=== PATIENT | female | born 1935 | race Caucasian/White ===

== ENCOUNTER 2017-12-02 13:53 | Inpatient (IN) | payer MEDICARE, OTHER, SELFPAY ==
[2017-12-02] VITALS (9 sets, daily range): BP systolic 143–200; BP diastolic 59–104; PULSE 89–104; RESP 16–24; TEMP 36.6–37.1; O2SAT 93–97; BMI 39.8; BMI 39.9; BMI 41.4
--- NOTE | 2017-12-02 14:22 | RAD_ITS ---
STUDY: X-RAY CHEST REASON FOR EXAM: Female, 82 years old. Worsening cough TECHNIQUE: Single AP portable view of the chest. COMPARISON: 09/08/2016 FINDINGS: EKG leads overlie the chest There are interstitial fibrotic changes of the lungs. There is no demonstrated pleural abnormality. Normal size heart. Normal mediastinum and awilda. Normal visualized pulmonary arteries. There is atherosclerotic calcification of the aortic arch with tortuosity. There are diffuse degenerative changes of the visualized thoracic spine. There is degenerative osteoarthritis of the bilateral shoulders. There is no demonstrated abnormality of the visualized soft tissue structures of the upper abdomen. RAD/Chest 1 View (Portable) IMPRESSION: Degenerative changes, as described above. No demonstrated acute cardiopulmonary process. No significant interval change Electronically Signed: Delmer Barrett MD at 15:33 EDT , Service support ,
--- NOTE | 2017-12-02 14:22 | EKG12_ITS ---
Test Reason : Blood Pressure : / mmHG Vent. Rate : 094 BPM Atrial Rate : 094 BPM P-R Int : 160 ms QRS Dur : 080 ms QT Int : 376 ms P-R-T Axes : 064 032 035 degrees QTc Int : 470 ms Sinus rhythm with frequent Premature ventricular complexes Otherwise normal ECG Confirmed by JAYESH SHELDON, ZACH ([id number]), editor at large SUNSHINE STODDARD ([id number]) on 12/03/2017 2:33:54 PM Referred By: JODI Confirmed By:ZACH MCCONNELL MD
[2017-12-02 14:45] LABS: Absolute Lymphocyte Count 2.03 X10^3/ul (0.83-4.51); Absolute Neutrophil Count 7.4 X10^3/uL (2.0-7.7); Basophil# 0.02 X10^3/uL; Basophil% 0.2 % (0-1); Eosinophil# 0.05 X10^3/uL; Eosinophils% 0.5 % (0-5); Hematocrit 42.4 % (37-47); Lymphocyte # 2.03 X10^3/ul (4.0); Lymphocyte % 19.5 % (19-41); Mean Corpuscular Hgb 29.3 pg (27.0-32.0); Mean Corpuscular Volume 88.7 fL (81-99); Monocyte# 0.87 X10^3/uL; Monocyte% 8.4 % (0-10); Neutrophil # 7.43 X10^3/uL (2.7-7.7); Neutrophil % 71.3 % (47-70); Platelet Count 255 K/mm3 (150-450); RBC Distribution Width CV 14.9 % (11.6-14.6); RBC Distribution Width SD 48.7 fl (35.1-43.9); Red Blood Count 4.78 M/mm3 (4.2-5.4); White Blood Count 10.4 K/mm3 (4.4-11.0)
[2017-12-02 14:47] LABS: POSITIVE COUNT NO; POSITIVE DIFFERENTIAL NO; POSITIVE MORPHOLOGY NO
[2017-12-02] MEDS: Ipratropium/Albuterol Sulfate 3 ML AMPUL.NEB INHALATION ×2 (14:55→20:20)
[2017-12-02] MEDS: Albuterol 2.5 MG/3 ML VIAL.NEB. INHALATION (14:55)
[2017-12-02 15:01] LABS: Anion Gap 10 (5-15); BUN 34 mg/dL (7-18); BUN/Creat Ratio 21.2 RATIO (10-20); Chloride 112 mmol/L (98-107); EST Glomerular Filtration Rate 33 mL/min (>60); Est Glom Filt Rate - Afr Amer 40 mL/min (>60); Estimated Creatinine Clearance 26.25 ml/min; Glucose 100 mg/dL (74-106); Potassium 3.7 mmol/L (3.5-5.1); Sodium Level 145 mmol/L (136-145)
[2017-12-02] MEDS: MethylPREDNISolone 125 MG/2 ML Vial IV (15:13)
--- NOTE | 2017-12-02 16:16 | ED.VISSUMM ---
- ER Visit Summary Date of Service: 12/02/17 Chief Complaint: Breathing problems History of Present Illness: The patient is a 82 F with shortness of breath increasing over the last several weeks. Symptoms are worse with ambulation. Her oxygen at home was in the 60s and 70s. She had an outpatient x-ray and was started on a water pill. A repeat x-ray was done and her PCP did not like it. She was referred to pulmonology on December 21, but her symptoms are worsening and she cannot make it at home. She has a history of COPD, TIA, hypertension, CKD, and gout. She has a remote history of nephrectomy for cancer. Former smoker. Physical Examination: Afebrile. Blood pressure 200/104. Alert and oriented. Breathing comfortably. Speaking comfortably. Heart regular. Lungs clear. Abdomen soft. Skin normal in color. Calf soft and supple. Test Results: EKG showed sinus rhythm at a rate of 94 with PVCs. Chest x-ray showed no acute abnormalities. CBC normal. Chem panel unremarkable. BNP 252 and troponin normal. Emergency Department Course and Treatment: Patient was placed on a monitor. She received breathing treatments and Solu-Medrol. She continued to have some shortness of breath. Her sats were normal on a nasal cannula. Her repeat blood pressure was 170/75. She was treated with doxycycline. Given her continued symptoms despite outpatient therapy and hypoxia at home, I called the hospitalist to admit. Treatment Plan: As above Disposition: Admission Impression: 1. COPD exacerbation 2. Hypoxia This note was generated with [employer] dictation software. It may contain incorrect words, spelling, and punctuation that were not noted in review of the chart prior to signing ED Disposition - Plan for ED Patient: Chief Complaint: Shortness of Breath Referrals: Dustin Mendieta [Primary Care Provider] -
--- NOTE | 2017-12-02 16:19 | ED.DCSUM_ITS ---
- ER Visit Summary Date of Service: 12/02/17 Chief Complaint: Breathing problems History of Present Illness: The patient is a 82 F with shortness of breath increasing over the last several weeks. Symptoms are worse with ambulation. Her oxygen at home was in the 60s and 70s. She had an outpatient x-ray and was started on a water pill. A repeat x-ray was done and her PCP did not like it . She was referred to pulmonology on December 21, but her symptoms are worsening and she cannot make it at home. She has a history of COPD, TIA, hypertension, CKD, and gout. She has a remote history of nephrectomy for cancer. Former smoker. Physical Examination: Afebrile. Blood pressure 200/104. Alert and oriented. Breathing comfortably. Speaking comfortably. Heart regular. Lungs clear. Abdomen soft. Skin normal in color. Calf soft and supple. Test Results: EKG showed sinus rhythm at a rate of 94 with PVCs. Chest x-ray showed no acute abnormalities. CBC normal. Chem panel unremarkable. BNP 252 and troponin normal. Emergency Department Course and Treatment: Patient was placed on a monitor. She received breathing treatments and Solu-Medrol. She continued to have some shortness of breath. Her sats were normal on a nasal cannula. Her repeat blood pressure was 170/75. She was treated with doxycycline. Given her continued symptoms despite outpatient therapy and hypoxia at home, I called the hospitalist to admit. Treatment Plan: As above Disposition: Admission Impression: 1. COPD exacerbation 2. Hypoxia This note was generated with [employer] dictation software. It may contain incorrect words, spelling, and punctuation that were not noted in review of the chart prior to signing ED Disposition - Plan for ED Patient: Chief Complaint: Shortness of Breath Referrals: Dustin Mendieta [Primary Care Provider] -
--- NOTE | 2017-12-02 16:30 | PCM.HP.STD ---
Problem List (1) Obesity (BMI 30-39.9) Status: Chronic (2) History of tobacco use Status: Chronic (3) Gout Status: Chronic Qualifiers: Gout site: unspecified site Gout etiology: unspecified cause Chronicity: unspecified Qualified Code(s): M10.9 - Gout, unspecified (4) Hypoxia Status: Chronic (5) COPD exacerbation Status: Chronic (6) Hypertension Status: Chronic Qualifiers: Hypertension type: essential hypertension Qualified Code(s): I10 - Essential (primary) hypertension (7) History of TIA (transient ischemic attack) Status: Chronic (8) History of kidney cancer Status: Chronic (9) CKD (chronic kidney disease) Status: Chronic Qualifiers: Chronic kidney disease stage: stage 3 (moderate) Qualified Code(s): N18.3 - Chronic kidney disease, stage 3 (moderate) History of Present Illness Date of Admission: 12/02/17 Chief Complaint: Dyspnea, cough, wheezing, hypoxia The patient is a 82 y/o w/ PMHx: Obesity, History of Tobacco use, Gout, Chronic COPD, Hypertension, Hx TIA, History of Renal CA, CKD stage III (baseline Cr 1.4) who presents to the [facility] ED on 12/02/17 with history of 6 weeks of ongoing dyspnea worse with exertion and minimally productive cough without fever or chills with self-reported hypoxia at home (Son checked her oxygenation and noted 70s) with PCP evaluation and ? congestion on film prompting lasix usage transiently without improvement, thus referred to Pulmonary 12/21/17; however, she noted ongoing dyspnea, worsened with any effort over the last ~ 3-4 weeks. In the ED work-up included AF, HR 90-100, BP 152/75, RR 22, 96% on 2L, although noted notable hypoxia at home, in the ED upon presentation 89% at rest, 86% on RA with ambulation and 90% on 2L with exertion with oxygen supplementation, CBC w/ WBC 10.4, Hgb 14, Plts 255 without marked shift, BMP w/ Chl 112, BUN/Cr 34/1.60, BNP 252, trop 0.03, EKG SR without acute evidence of ischemia, CXR with chronic changes. In the ED patient administered albuterol, duoneb, doxycycline, solumedrol. Past Medical History Past Medical History (Chronic Problems): Chronic Problems Obesity (BMI 30-39.9) (Chronic) History of tobacco use (Chronic) Gout (Chronic) Hypoxia (Chronic) COPD exacerbation (Chronic) Hypertension (Chronic) History of TIA (transient ischemic attack) (Chronic) History of kidney cancer (Chronic) CKD (chronic kidney disease) (Chronic) Allergies clindamycin [From Cleocin] Allergy (Verified 12/02/17 13:59) Unknown oxycodone HCl [From OxyContin] Allergy (Verified 12/02/17 13:59) Anaphylaxis Sulfa (Sulfonamide Antibiotics) Allergy (Verified 12/02/17 13:59) Anaphylaxis vancomycin Allergy (Verified 12/02/17 13:59) Hives guaifenesin [From Entex LA] Adverse Reaction (Verified 12/02/17 13:59) Unknown phenylephrine [From Entex LA] Adverse Reaction (Verified 12/02/17 13:59) Unknown phenylpropanolamine [From Entex LA] Adverse Reaction (Verified 12/02/17 13:59) Unknown BETA BLOCKERS Adverse Reaction (Uncoded 12/02/17 13:59) Unknown Home Medications: Ambulatory Orders Medication Instructions Recorded Aspirin 325 mg PO DAILY@0800 04/04/15 Estrogens, Conjugated [Premarin] 0.3 mg PO DAILY 04/04/15 Hydrochlorothiazide [Hctz] 25 mg PO DAILY 04/04/15 MedroxyPROGESTERone [Provera] 2.5 mg PO UD 05/18/15 Felodipine [Plendil] 10 mg PO DAILY #0 tab.sr.24h 05/28/15 Albuterol Inhaler [Ventolin Hfa] 2 puff INHALATION Q4H PRN PRN #1 09/11/16 inhaler Budesonide/Formoterol 160/4.5 2 puff INHALATION BID #1 inhaler 09/11/16 [Symbicort 160/4.5 Mcg Inhaler (SP)] Oseltamivir Phosphate [Tamiflu] 30 mg PO DAILY #3 capsule 09/11/16 predniSONE tablet 10 mg PO DAILY #21 tablet 09/11/16 Docusate Sodium [Colace] 100 mg PO DAILY #20 capsule 12/23/16 Hydrocodone Bitart/Apap 5-325 1 - 2 tablet PO Q4H PRN PRN #20 12/23/16 [[place] 5/325] tablet Surgical History: - - Tonsillectomy, appendectomy, cholecystectomy, bilateral shoulder rotator cuff repair, right elbow fracture with surgery with pin in place, bilateral total knee replacement. 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 Smoking Status: Former smoker Tobacco Use: Non-smoker - Quit 1994, notes ~ < 1/2 ppd since youth. Alcohol: None Drugs: None - *Family History Maternal History Items: Heart Disease, Hypertension Paternal History Items: Cancer - Pancreatic CA, age 3840 years old., Diabetes, Heart Disease, Hypertension Review of Systems Constitutional: Reports: Malaise, Weakness, Fatigue. Denies: Chills, Fever, Weight Change HEENT: Denies: Head Aches, Sinus Congestion, Sinus Drainage Cardiovascular: Denies: Chest Pain, Edema, Heaviness, Light Headedness, Palpitations Respiratory: Reports: Cough, Shortness of Breath, Shortness of breath at rest, Shortness of breath upon exertion, Sputum production, Wheezing Gastrointestinal: Denies: Abdominal Pain, Nausea, Vomiting Genitourinary: Denies: Dysuria Musculoskeletal: Reports: Back Pain. Denies: Joint Pain, Joint Tenderness Skin: Denies: Rash, Wounds Neurological: Denies: Numbness, Tingling, Focal weakness Psychiatric: Denies: Anxiety, Depression, Homicidal Ideations, Suicidal Ideations Hematologic/ Lymphatic: Denies: Easy Bruising, Easy Bleeding VTE Information - Inpt Only VTE Present on Admission: No VTE Mechan Device Prophylaxis: SCD's VTE Pharm Prophylaxis ordered?: Yes Subjective: Seated upright in the ED bed, comfortable appearing, NAD. Objective: Physical Examination: General: awake, alert, oriented x 3 and cooperative, seated upright in the ED bed in no apparent distress. Skin: normal color, turgor, no icterus, cyanosis. HEENT: AT/NC, EOMI, PERRLA, MMM, no carotid bruits or JVD noted. Lungs: Severely diminished BS throughout, > bases, mild effort, no rales, ronchi or wheezing. Heart: Mildly tachycardic, regular rhythm; no gallop, rub audible. Abdomen: soft, obese, NTTP, ND, normal BS, no HSM; however, habitus makes examination difficult. Extremities: no cyanosis, clubbing, or edema. Neurological: patient awake, alert, oriented x 3; cognitive function intact; pupils equally reactive to light and accomodation; cranial nerves II-XII grossly normal, moving all 4 extremities, no focal deficits, strength moderately to severely globally decreased secondary to acute presentation and habitus. Psychiatric: affect appears normal, no acute evidence of depressive or anxiety feelings. - Physical Exam Vital Signs Temp Pulse Resp BP Pulse Ox 98.2 F 101 H 22 H 152/75 H 96 12/02/17 13:54 12/02/17 16:24 12/02/17 16:24 12/02/17 16:24 12/02/17 16:24 Oxygen Flow Rate (L/min) 2 Oxygen Delivery Method Nasal Cannula Weight: 246 lb 14.684 oz Body Mass Index (BMI) 39.8 Laboratory Tests Past 24 Hrs 12/02/17 12/02/17 12/02/17 14:36 14:36 14:36 WBC 10.4 RBC 4.78 Hgb 14.0 Hct 42.4 MCV 88.7 MCH 29.3 MCHC 33.0 RDW 14.9 H RDW Differential 48.7 H Plt Count 255 MPV 10.0 Immature Gran % (Auto) 0.100 Neut % (Auto) 71.3 H Lymph % (Auto) 19.5 [place] % (Auto) 8.4 Eos % (Auto) 0.5 Baso % (Auto) 0.2 Absolute Neuts (auto) 7.4 Absolute Lymphs (auto) 2.03 Total Counted Not Reportable Sodium 145 Potassium 3.7 Chloride 112 H Carbon Dioxide 23.0 Anion Gap 10 BUN 34 H Creatinine 1.60 H Estim Creat Clear Calc 26.25 Est GFR (MDRD) Af Amer 40 L Est GFR (MDRD) Non-Af 33 L BUN/Creatinine Ratio 21.2 H Glucose 100 Calcium 9.0 Troponin I 0.03 B-Natriuretic Peptide 252.0 H Assessment/Plan The patient is a 82 y/o w/ PMHx: Obesity, History of Tobacco use, Gout, Chronic COPD, Hypertension, Hx TIA, History of Renal CA, CKD stage III who presents to the [facility] ED on 12/02/17 with history of 6 weeks of ongoing dyspnea worse with exertion and minimally productive cough without fever or chills with self-reported hypoxia at home with PCP evaluation and ? congestion on film prompting lasix usage transiently without improvement, thus referred to Pulmonary 12/21/17; however, she noted ongoing dyspnea, worsened with any effort over the last ~ 3-4 weeks. (1) Hypoxia secondary to Suspected Primarily Acute on chronic COPD exacerbation: CXR w/ chronic changes, CBC on admission w/ WBC 10.4 without shift, afebrile. Will admit to [place], maintain on oxygen with wean as tolerated to room air, will need oxygenation testing once appropriate for discharge, continue ATC duonebs, PRN albuterol, IV methylprednisolone, HOB, IS parameters, defer abx given presentation, obtain viral respiratory panel, obtain sputum cx, obtain Pulmonary evaluation as had upcoming evaluation for further assessment and recommendations. ECHO also pending. Mag pending. (2) Hypertension: Continue home regimen including felodipine, hydrochlorothiazide, PRN hydralazine. (3) Hx Renal CA, Chronic Kidney Disease Stage III: Admission BUN/Cr 34/1.60, baseline renal function 1.4, repeat BMP in AM. Follows w/ Consumer Safety Officer at [place]. (4) Obesity: Weight loss and lifestyle changes encouraged, nutrition consulted for education. (5) Hx TIA/CVD: Maintain on asa, BP regimen with goal <140/90, not on statin. (6) GERD: Famotidine. (7) DVT Prophylaxis: SCDs, heparin. Code Visit Inpatient E&M: 26528 Init Hosp L3
--- NOTE | 2017-12-02 16:41 | HP.PCM_ITS ---
Problem List (1) Obesity (BMI 30-39.9) Status: Chronic (2) History of tobacco use Status: Chronic (3) Gout Status: Chronic Qualifiers: Gout site: unspecified site Gout etiology: unspecified cause Chronicity: unspecified Qualified Code(s): M10.9 - Gout, unspecified (4) Hypoxia Status: Chronic (5) COPD exacerbation Status: Chronic (6) Hypertension Status: Chronic Qualifiers: Hypertension type: essential hypertension Qualified Code(s): I10 - Essential (primary) hypertension (7) History of TIA (transient ischemic attack) Status: Chronic (8) History of kidney cancer Status: Chronic (9) CKD (chronic kidney disease) Status: Chronic Qualifiers: Chronic kidney disease stage: stage 3 (moderate) Qualified Code(s): N18.3 - Chronic kidney disease, stage 3 (moderate) History of Present Illness Date of Admission: 12/02/17 Chief Complaint: Dyspnea, cough, wheezing, hypoxia The patient is a 82 y/o w/ PMHx: Obesity, History of Tobacco use, Gout, Chronic COPD, Hypertension, Hx TIA, History of Renal CA, CKD stage III (baseline Cr 1.4 ) who presents to the [facility] ED on 12/02/17 with history of 6 weeks of ongoing dyspnea worse with exertion and minimally productive cough without fever or chills with self-reported hypoxia at home (Son checked her oxygenation and noted 70s) with PCP evaluation and ? congestion on film prompting lasix usage transiently without improvement, thus referred to Pulmonary 12/21/17; however, she noted ongoing dyspnea, worsened with any effort over the last ~ 3-4 weeks. In the ED work-up included AF, HR 90-100, BP 152/75, RR 22, 96% on 2L, although noted notable hypoxia at home, in the ED upon presentation 89% at rest, 86% on RA with ambulation and 90% on 2L with exertion with oxygen supplementation, CBC w/ WBC 10.4, Hgb 14, Plts 255 without marked shift, BMP w/ Chl 112, BUN/Cr 34/ 1.60, BNP 252, trop 0.03, EKG SR without acute evidence of ischemia, CXR with chronic changes. In the ED patient administered albuterol, duoneb, doxycycline, solumedrol. Past Medical History Past Medical History (Chronic Problems): Chronic Problems Obesity (BMI 30-39.9) (Chronic) History of tobacco use (Chronic) Gout (Chronic) Hypoxia (Chronic) COPD exacerbation (Chronic) Hypertension (Chronic) History of TIA (transient ischemic attack) (Chronic) History of kidney cancer (Chronic) CKD (chronic kidney disease) (Chronic) Allergies clindamycin [From Cleocin] Allergy (Verified 12/02/17 13:59) Unknown oxycodone HCl [From OxyContin] Allergy (Verified 12/02/17 13:59) Anaphylaxis Sulfa (Sulfonamide Antibiotics) Allergy (Verified 12/02/17 13:59) Anaphylaxis vancomycin Allergy (Verified 12/02/17 13:59) Hives guaifenesin [From Entex LA] Adverse Reaction (Verified 12/02/17 13:59) Unknown phenylephrine [From Entex LA] Adverse Reaction (Verified 12/02/17 13:59) Unknown phenylpropanolamine [From Entex LA] Adverse Reaction (Verified 12/02/17 13:59) Unknown BETA BLOCKERS Adverse Reaction (Uncoded 12/02/17 13:59) Unknown Home Medications: Ambulatory Orders Medication Instructions Recorded Aspirin 325 mg PO DAILY@0800 04/04/15 Estrogens, Conjugated [Premarin] 0.3 mg PO DAILY 04/04/15 Hydrochlorothiazide [Hctz] 25 mg PO DAILY 04/04/15 MedroxyPROGESTERone [Provera] 2.5 mg PO UD 05/18/15 Felodipine [Plendil] 10 mg PO DAILY #0 tab.sr.24h 05/28/15 Albuterol Inhaler [Ventolin Hfa] 2 puff INHALATION Q4H PRN PRN #1 09/11/16 inhaler Budesonide/Formoterol 160/4.5 2 puff INHALATION BID #1 inhaler 09/11/16 [Symbicort 160/4.5 Mcg Inhaler (SP)] Oseltamivir Phosphate [Tamiflu] 30 mg PO DAILY #3 capsule 09/11/16 predniSONE tablet 10 mg PO DAILY #21 tablet 09/11/16 Docusate Sodium [Colace] 100 mg PO DAILY #20 capsule 12/23/16 Hydrocodone Bitart/Apap 5-325 1 - 2 tablet PO Q4H PRN PRN #20 12/23/16 [[place] 5/325] tablet Surgical History: - - Tonsillectomy, appendectomy, cholecystectomy, bilateral shoulder rotator cuff repair, right elbow fracture with surgery with pin in place, bilateral total knee replacement. 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 Smoking Status: Former smoker Tobacco Use: Non-smoker - Quit 1994, notes ~ < 1/2 ppd since youth. Alcohol: None Drugs: None - *Family History Maternal History Items: Heart Disease, Hypertension Paternal History Items: Cancer - Pancreatic CA, age 3838 years old., Diabetes, Heart Disease, Hypertension Review of Systems Constitutional: Reports: Malaise, Weakness, Fatigue. Denies: Chills, Fever, Weight Change HEENT: Denies: Head Aches, Sinus Congestion, Sinus Drainage Cardiovascular: Denies: Chest Pain, Edema, Heaviness, Light Headedness, Palpitations Respiratory: Reports: Cough, Shortness of Breath, Shortness of breath at rest, Shortness of breath upon exertion, Sputum production, Wheezing Gastrointestinal: Denies: Abdominal Pain, Nausea, Vomiting Genitourinary: Denies: Dysuria Musculoskeletal: Reports: Back Pain. Denies: Joint Pain, Joint Tenderness Skin: Denies: Rash, Wounds Neurological: Denies: Numbness, Tingling, Focal weakness Psychiatric: Denies: Anxiety, Depression, Homicidal Ideations, Suicidal Ideations Hematologic/ Lymphatic: Denies: Easy Bruising, Easy Bleeding VTE Information - Inpt Only VTE Present on Admission: No VTE Mechan Device Prophylaxis: SCD's VTE Pharm Prophylaxis ordered?: Yes Subjective: Seated upright in the ED bed, comfortable appearing, NAD. Objective: Physical Examination: General: awake, alert, oriented x 3 and cooperative, seated upright in the ED bed in no apparent distress. Skin: normal color, turgor, no icterus, cyanosis. HEENT: AT/NC, EOMI, PERRLA, MMM, no carotid bruits or JVD noted. Lungs: Severely diminished BS throughout, > bases, mild effort, no rales, ronchi or wheezing. Heart: Mildly tachycardic, regular rhythm; no gallop, rub audible. Abdomen: soft, obese, NTTP, ND, normal BS, no HSM; however, habitus makes examination difficult. Extremities: no cyanosis, clubbing, or edema. Neurological: patient awake, alert, oriented x 3; cognitive function intact; pupils equally reactive to light and accomodation; cranial nerves II-XII grossly normal, moving all 4 extremities, no focal deficits, strength moderately to severely globally decreased secondary to acute presentation and habitus. Psychiatric: affect appears normal, no acute evidence of depressive or anxiety feelings. - Physical Exam Vital Signs Temp Pulse Resp BP Pulse Ox 98.2 F 101 H 22 H 152/75 H 96 12/02/17 13:54 12/02/17 16:24 12/02/17 16:24 12/02/17 16:24 12/02/17 16:24 Oxygen Flow Rate (L/min) 2 Oxygen Delivery Method Nasal Cannula Weight: 246 lb 14.684 oz Body Mass Index (BMI) 39.8 Laboratory Tests Past 24 Hrs 12/02/17 12/02/17 12/02/17 14:36 14:36 14:36 WBC 10.4 RBC 4.78 Hgb 14.0 Hct 42.4 MCV 88.7 MCH 29.3 MCHC 33.0 RDW 14.9 H RDW Differential 48.7 H Plt Count 255 MPV 10.0 Immature Gran % (Auto) 0.100 Neut % (Auto) 71.3 H Lymph % (Auto) 19.5 [place] % (Auto) 8.4 Eos % (Auto) 0.5 Baso % (Auto) 0.2 Absolute Neuts (auto) 7.4 Absolute Lymphs (auto) 2.03 Total Counted Not Reportable Sodium 145 Potassium 3.7 Chloride 112 H Carbon Dioxide 23.0 Anion Gap 10 BUN 34 H Creatinine 1.60 H Estim Creat Clear Calc 26.25 Est GFR (MDRD) Af Amer 40 L Est GFR (MDRD) Non-Af 33 L BUN/Creatinine Ratio 21.2 H Glucose 100 Calcium 9.0 Troponin I 0.03 B-Natriuretic Peptide 252.0 H Assessment/Plan The patient is a 82 y/o w/ PMHx: Obesity, History of Tobacco use, Gout, Chronic COPD, Hypertension, Hx TIA, History of Renal CA, CKD stage III who presents to the [facility] ED on 12/02/17 with history of 6 weeks of ongoing dyspnea worse with exertion and minimally productive cough without fever or chills with self- reported hypoxia at home with PCP evaluation and ? congestion on film prompting lasix usage transiently without improvement, thus referred to Pulmonary 12/21/17 ; however, she noted ongoing dyspnea, worsened with any effort over the last ~ 3 -4 weeks. (1) Hypoxia secondary to Suspected Primarily Acute on chronic COPD exacerbation : CXR w/ chronic changes, CBC on admission w/ WBC 10.4 without shift, afebrile. Will admit to [place], maintain on oxygen with wean as tolerated to room air, will need oxygenation testing once appropriate for discharge, continue ATC duonebs, PRN albuterol, IV methylprednisolone, HOB, IS parameters, defer abx given presentation, obtain viral respiratory panel, obtain sputum cx, obtain Pulmonary evaluation as had upcoming evaluation for further assessment and recommendations. ECHO also pending. Mag pending. (2) Hypertension: Continue home regimen including felodipine, hydrochlorothiazide, PRN hydralazine. (3) Hx Renal CA, Chronic Kidney Disease Stage III: Admission BUN/Cr 34/1.60, baseline renal function 1.4, repeat BMP in AM. Follows w/ Knowledge Architect at [place]. (4) Obesity: Weight loss and lifestyle changes encouraged, nutrition consulted for education. (5) Hx TIA/CVD: Maintain on asa, BP regimen with goal <140/90, not on statin. (6) GERD: Famotidine. (7) DVT Prophylaxis: SCDs, heparin. Code Visit Inpatient E&M: 76690 Init Hosp L3
--- NOTE | 2017-12-02 17:28 | ECHOD_ITS ---
Reason For Study: DYSPNEA Procedure This was a 2D Doppler, Color Flow transthoracic echocardiogram. The study was technically difficult. Exam performed portable in patient room. Left Ventricle Normal LV size. Mild concentric left ventricular hypertrophy. Left ventricular systolic function is normal. The estimated ejection fraction is 60 %. Transmitral diastolic flow velocities suggest mild (stage 1) diastolic dysfunction (reversed pattern). No regional wall motion abnormalities noted. Right Ventricle Normal RV size. Normal systolic function. Atria The left atrium is moderately enlarged. Normal right atrium. Mitral Valve There is mild mitral annular calcification. Mild (1+) eccentric mitral valve insufficiency. Tricuspid Valve Normal tricuspid valve. Moderate (2+) tricuspid valve insufficiency. Pulmonary artery systolic pressure is 59 mmHg. Moderate pulmonary hypertension. Aortic Valve Normal aortic valve. Pulmonic Valve Normal pulmonic valve. Great Vessels Normal aortic root. The pulmonary artery is normal size. Normal inferior vena cava. Pericardium/Pleural No pericardial effusion. Medication Definity deferred due to elevated PAP. MMode/2D Measurements & Calculations LVIDd: 3.9 cm IVSd: 1.2 cm Ao root diam: 3.1 cm LVIDs: 2.9 cm LVPWd: 1.6 cm LA dimension: 3.7 cm RVDd: 4.4 cm FS: 26.5 % LAV(MOD-bp): 66.8 ml LAV(MOD-bp) Indexed: 29.5 ml/m2 LA A4 area: 24.0 cm2 RA A4 area: 20.5 cm2 LAV(MOD-sp2): 50.0 ml LAV(MOD-sp4): 73.5 ml Doppler Measurements & Calculations MV E max nestor: 74.6 cm/sec Ao V2 max: 171.4 cm/sec LV V1 max: 110.3 cm/sec MV A max nestor: 109.4 cm/sec Ao max P.8 mmHg LV V1 max P.9 mmHg MV E/A: 0.68 TR max nestor: 366.9 cm/sec TR max P.3 mmHg Interpretation Summary Normal LV size. Mild concentric left ventricular hypertrophy. Left ventricular systolic function is normal. The estimated ejection fraction is 60 %. Pulmonary artery systolic pressure is 59 mmHg. Moderate pulmonary hypertension. Transmitral diastolic flow velocities suggest mild (stage 1) diastolic dysfunction (reversed pattern). Ordering Physician: Constance Kaur Referring Physician: POLI HARRY Performed By: Delilah De Santiago, RASHAAD, RVT
[2017-12-02 18:55] LABS: Magnesium 2.1 mg/dL (1.6-2.6); Thyroid Stim Hormone (TSH) 2.65 uIU/mL (0.358-3.74)
[2017-12-02] MEDS: 0.9% NaCl Peripheral Flush Adult/Peds IV (21:41)
[2017-12-02] MEDS: MELATONIN 3 MG TABLET PO (21:41)
[2017-12-02] MEDS: guaiFENesin 1,200 MG Tablet 1200 MG PO (21:41)
[2017-12-03] VITALS (9 sets, daily range): BP systolic 146–180; BP diastolic 74–98; PULSE 96–109; RESP 18–22; TEMP 36.7–37.2; O2SAT 94–98
[2017-12-03 06:19] LABS: Absolute Lymphocyte Count 0.54 X10^3/ul (0.83-4.51); Absolute Neutrophil Count 5.5 X10^3/uL (2.0-7.7); Hematocrit 39.5 % (37-47); Lymphocyte # 0.54 X10^3/ul (4.0); Lymphocyte % 8.9 % (19-41); Mean Corp Hgb Conc 32.9 g/gl (32-36); Mean Corpuscular Hgb 29.3 pg (27.0-32.0); Mean Platelet Vol. 10.4 fl (6.2-12.0); Monocyte# 0.07 X10^3/uL; Monocyte% 1.2 % (0-10); Neutrophil # 5.46 X10^3/uL (2.7-7.7); Neutrophil % 89.7 % (47-70); Platelet Count 253 K/mm3 (150-450); RBC Distribution Width CV 15.2 % (11.6-14.6); RBC Distribution Width SD 49.2 fl (35.1-43.9); Red Blood Count 4.44 M/mm3 (4.2-5.4); White Blood Count 6.1 K/mm3 (4.4-11.0)
[2017-12-03 06:20] LABS: Differential Indicated SCAN CRITERIA MET; POSITIVE COUNT NO; POSITIVE DIFFERENTIAL YES; POSITIVE MORPHOLOGY NO
[2017-12-03 06:26] LABS: Anion Gap 8 (5-15); BUN 36 mg/dL (7-18); BUN/Creat Ratio 24.5 RATIO (10-20); Calcium,Total 8.5 mg/dL (8.5-10.1); Chloride 111 mmol/L (98-107); Creatinine, Serum 1.47 mg/dL (0.55-1.02); EST Glomerular Filtration Rate 36 mL/min (>60); Est Glom Filt Rate - Afr Amer 44 mL/min (>60); Estimated Creatinine Clearance 28.57 ml/min; Glucose 152 mg/dL (74-106); Potassium 4.5 mmol/L (3.5-5.1); Sodium Level 141 mmol/L (136-145)
[2017-12-03] MEDS: 0.9% NaCl Peripheral Flush Adult/Peds IV ×3 (06:26→22:10)
[2017-12-03] MEDS: Ipratropium/Albuterol Sulfate 3 ML AMPUL.NEB INHALATION ×4 (06:45→20:04)
--- NOTE | 2017-12-03 08:11 | PCM.CONS.GEN ---
Problem List (1) Acute respiratory failure with hypoxia Status: Acute (2) History of tobacco use Status: Chronic Comment: quit 1994 (3) Hypertension Status: Chronic Qualifiers: Hypertension type: essential hypertension Qualified Code(s): I10 - Essential (primary) hypertension (4) CKD (chronic kidney disease) Status: Chronic Qualifiers: Chronic kidney disease stage: stage 3 (moderate) Qualified Code(s): N18.3 - Chronic kidney disease, stage 3 (moderate) (5) Gout Status: Chronic Qualifiers: Gout site: unspecified site Gout etiology: unspecified cause Chronicity: unspecified Qualified Code(s): M10.9 - Gout, unspecified (6) History of TIA (transient ischemic attack) Status: Chronic (7) History of kidney cancer Status: Chronic (8) Obesity, morbid, BMI 40.0-49.9 Status: Chronic Reason for Consult Date of Consultation: 12/03/17 Reason for Consultation: ?COPD exacerbation History of Present Illness: The patient is a 82 year old F past medical history as below who presented to the ED at the urging of her PCP secondary to ongoing and progressive dyspnea on exertion since October 05. The patient noted she had significant hypoxia at home in the 70s and her breathing has gotten somewhat worse in the last 3-4 days. She denies any fever or chills. She does have a cough of clear sputum, mainly in the mornings. Denies any hemoptysis, shortness of breath at rest, orthopnea, dizziness, or syncope. Patient denies any sore throat, rhinorrhea, or other upper respiratory symptoms. She has not had any recent weight loss. Initial vital signs 200/104, pulse 94, RR 22, 98.2?F, and 94% on room air. Patient reportedly desaturated to 89% on room air, and was later ambulated on room air and desaturated further to 86%. The patient was placed on 2 L of oxygen and was saturating at 94%. Blood work showed no leukocytosis, hemoglobin normal. Chemistry remarkable for chloride of 112, BUN of 34 and creatinine 1.60. Creatinine in September 2016 was between 1.08 and 1.48. BNP was 252. TSH normal 2.65. Troponin negative ?1. A respiratory viral panel was negative. Patient was started on aerosol treatments and chest physiotherapy. She was given a dose of IV doxycycline and started on IV steroids and scheduled bronchodilators. She was admitted to the medical surgical floor for further management. Pulmonary was consulted secondary to possible COPD exacerbation. Her blood pressure remains elevated. She has been weaned to 1 L of oxygen supplementation. Patient reports she initially presented to her primary care physician's office, Dr. Dustin Mendieta, on October 05. He performed a chest x-ray. The patient was placed on some Lasix and the chest x-ray was repeated. Her PCP reportedly did not like the looks of it so the patient was set up for an appointment in the pulmonary clinic on December 21, 2017. Patient states that she waited several days, however she felt like her breathing was worsening, so she presented to the ED. The patient states she saw Meseret Sommers and Dr. Wilson approximately 1 year ago as a hospital follow-up for hypoxic respiratory insufficiency secondary to influenza A and was placed on Symbicort and Ventolin. Her breathing did improve at that time, however she was sent home on 2 L of oxygen. She is only been to the pulmonary clinic once, on 09/23/16. She states she had subsequent pulmonary function tests and a sleep study, however these do not appear to be completed, possibly done at outside facility. She was also to have alpha-1 antitrypsin testing, however unclear if this was completed. Patient did have an overnight pulse oximetry on 09/07/15 while wearing 2 L of oxygen supplementation, showed desaturations. Patient also reports a past history of asthma. She is on hormone replacement at baseline secondary to issues with menopause. Patient does have a history of smoking, 1/2 PPD for 15 years and quit in 1994 (7.5 [id number]). She does have a pulse oximeter at home and monitors this regularly. She typically desaturates after taking a couple of steps, however in the last several weeks she has significantly desaturated into the 60s to 70s with minimal exertion. Echocardiogram 04/09/15 showed normal LV size, mild concentric LVH, estimated EF 60%, impaired relaxation of left ventricle, and a mild focal aortic valve calcification. She has been seen in the past by [facility] for high-grade AV block. Patient had a chest CT in August 2016 that showed diffuse COPD and basilar for peripheral fibrotic changes. There were scattered areas of lymph nodes throughout the mesentery with the largest measuring 1.3 cm in the right paratracheal region most likely consistent with a reactive lymphadenopathy. Past Medical History Past Medical History (Chronic Problems): Chronic Problems Obesity, morbid, BMI 40.0-49.9 (Chronic) History of tobacco use (Chronic) quit 1994 Gout (Chronic) Hypoxia (Chronic) COPD exacerbation (Chronic) Hypertension (Chronic) History of TIA (transient ischemic attack) (Chronic) History of kidney cancer (Chronic) CKD (chronic kidney disease) (Chronic) Allergies clindamycin [From Cleocin] Allergy (Verified 12/02/17 13:59) Unknown oxycodone HCl [From OxyContin] Allergy (Verified 12/02/17 13:59) Anaphylaxis Sulfa (Sulfonamide Antibiotics) Allergy (Verified 12/02/17 13:59) Anaphylaxis vancomycin Allergy (Verified 12/02/17 13:59) Hives guaifenesin [From Entex LA] Adverse Reaction (Verified 12/02/17 13:59) Unknown phenylephrine [From Entex LA] Adverse Reaction (Verified 12/02/17 13:59) Unknown phenylpropanolamine [From Entex LA] Adverse Reaction (Verified 12/02/17 13:59) Unknown BETA BLOCKERS Adverse Reaction (Uncoded 12/02/17 13:59) Unknown Home Medications: Ambulatory Orders Medication Instructions Recorded Aspirin 325 mg PO DAILY@0800 04/04/15 Estrogens, Conjugated [Premarin] 0.3 mg PO UD 04/04/15 Hydrochlorothiazide [Hctz] 25 mg PO DAILY 04/04/15 MedroxyPROGESTERone [Provera] 2.5 mg PO UD 05/18/15 Albuterol Inhaler [Ventolin Hfa] 2 puff INHALATION Q4H PRN PRN #1 09/11/16 inhaler Hydrocodone Bitart/Apap 5-325 1 - 2 tablet PO Q4H PRN PRN #20 12/23/16 [[place] 5/325] tablet Budesonide/Formoterol 160/4.5 2 puff INHALATION BID 12/02/17 [Symbicort 160/4.5 Mcg Inhaler (SP)] Felodipine [Plendil] 10 mg PO DAILY 12/02/17 Surgical History: - - Tonsillectomy, appendectomy, cholecystectomy, bilateral shoulder rotator cuff repair, right elbow fracture with surgery with pin in place, bilateral total knee replacement. Renal cell carcinoma Psychiatric History: No pertinent psych hx [employer] History: No pertinent [employer]ICE history Lives: With Family - She lives with her youngest son. Smoking Status: Former smoker - 7.5-pack-year history Tobacco Use: Cigarettes Alcohol: None Drugs: None - *Family History Paternal History Items: Cancer - Pancreatic CA, age 3838 years old., Diabetes, Heart Disease, Hypertension Maternal History Items: Heart Disease, Hypertension Review of Systems Constitutional: Denies: Anorexia, Chills, Fever, Night Sweats, Malaise, Weakness, Weight Change, Fatigue Eyes: Denies: Vision Change HEENT: Denies: Difficulty Swallowing, Head Aches, Nasal bleeding, Nasal Congestion, Post Nasal Drip, Sinus Congestion, Sinus Drainage, Sore Throat Cardiovascular: Denies: Chest Pain, Chest Tightness, Edema, Light Headedness, Orthopnea, Palpitations, Paroxysmal Noc. Dyspnea, Syncope Respiratory: Reports: Cough - Mostly nonproductive except in the morning, Shortness of breath upon exertion, Sputum production - Clear, mainly in a.m., Wheezing. Denies: Hemoptysis, Shortness of breath at rest Gastrointestinal: Denies: Abdominal Pain, Constipation, Diarrhea, Dyspepsia, Hematemesis, Hematochezia, Nausea, Melena, Vomiting Genitourinary: Reports: Nocturia. Denies: Dysuria, Frequency, Hematuria, Retention Gynecological: Denies: Breast symptoms Musculoskeletal: Reports: Joint stiffness. Denies: Back Pain, Muscle pain, Neck Pain Skin: Denies: Rash, Wounds Neurological: Denies: Balance problems, Change in Speech, Confusion, Difficulty swallowing, Focal weakness, Numbness, Tingling, Tremor, Seizures Psychiatric: Denies: Anxiety, Depression Endocrine: Denies: Change in Body Habitus, Polydipsia, Polyuria Hematologic/ Lymphatic: Denies: Adenopathy, Anemia, Easy Bruising, Easy Bleeding, Hx of blood clot Patient Problems: Active and Suspected Problems Acute respiratory failure with hypoxia (Acute) Subjective: Patient was seen and examined. She denies any current shortness of breath, sitting up in bed eating her breakfast. No current wheezing or cough. Objective: Clinical Impression(s) from Imaging Studies Chest X-Ray 12/02/17 14:22 IMPRESSION: Degenerative changes, as described above. No demonstrated acute cardiopulmonary process. No significant interval change Electronically Signed: Delmer Barrett MD at 15:33 EDT , Service support , - Physical Exam General: Alert, Oriented x3, Cooperative, No apparent distress, Well developed, Well nourished, - - No conversational dyspnea HEENT: Atraumatic, Normocephalic Oral: Moist Mucosa, No Gingival or Mucosal Lesions/ Ulcerations, - - Crowded posterior oropharynx Neck: Supple, No JVD, No Nodes, Trachea Midline, - - Large neck circumference Lungs: Clear to auscultation, No rhonchi, No wheeze, No rales, Diminished, - - Symmetrical expansion, no dullness to percussion. No accessory muscle use Cardiovascular: Regular rate, Regular Rhythm, Normal S1, Normal S2, No murmurs, No rub noted, No Gallop Abdomen: Bowel Sounds Present, Soft, Non Tender, Non-Distended, Obese Extremities: No clubbing, No cyanosis, No edema, Capillary Refill Less than 3 Seconds, Peripheral Pulses Normal Skin: No rashes, No breakdown Musculoskeletal: No Tenderness to Palpation of Joints or Extremities Lymphatic: No Cervical, Supraclavicular, or Inguinal Adenopathy Neurological: Cranial nerves II-XII grossly intact, Neuro grossly intact, Motor Exam 5/5 strength throughout Psych/Mental Status: Alert and oriented to time, place, person, mood and affect Vital Signs Temp Pulse Resp BP Pulse Ox 98.5 F 100 20 H 164/85 H 95 12/03/17 02:30 12/03/17 06:45 12/03/17 06:45 12/03/17 02:30 12/03/17 06:45 Oxygen Flow Rate (L/min) 1 Oxygen Delivery Method Nasal Cannula Weight: 256 lb 13.416 oz Body Mass Index (BMI) 41.4 Intake and Output for Last 24 Hours 12/01/17 12/02/17 12/03/17 23:59 23:59 23:59 Intake Total 1143 / 1143 510 / 510 Output Total 850 / 850 Balance 1143 / 1143 -340 / -340 Microbiology Past 72 Hours 12/02/17 20:10 Respiratory Panel (PCR) - Final Mucosa - Nasopharyngeal Laboratory Tests Past 24 Hrs 12/03/17 12/03/17 05:35 05:35 WBC 6.1 RBC 4.44 Hgb 13.0 Hct 39.5 MCV 89.0 MCH 29.3 MCHC 32.9 RDW 15.2 H RDW Differential 49.2 H Plt Count 253 MPV 10.4 Immature Gran % (Auto) 0.200 Neut % (Auto) 89.7 H Lymph % (Auto) 8.9 L [place] % (Auto) 1.2 Eos % (Auto) 0.0 Baso % (Auto) 0.0 Absolute Neuts (auto) 5.5 Absolute Lymphs (auto) 0.54 L Total Counted Not Reportable Sodium 141 Potassium 4.5 Chloride 111 H Carbon Dioxide 22.0 Anion Gap 8 BUN 36 H Creatinine 1.47 H Estim Creat Clear Calc 28.57 Est GFR (MDRD) Af Amer 44 L Est GFR (MDRD) Non-Af 36 L BUN/Creatinine Ratio 24.5 H Glucose 152 H Calcium 8.5 Assessment/Plan Active and Suspected Problems Acute respiratory failure with hypoxia (Acute) RECOMMENDATIONS 1. Wean oxygen supplementation to keep saturations 88-92%. 2. Encourage incentive spirometer 3. Increase activity as tolerated, PT/OT consult 4. Continue bronchodilators 5. Continue IV steroids for now, may DC tomorrow if improving and since no significant wheezing 6. Obtain high resolution chest CT 7. Walking oximetry prior to discharge IMPRESSIONS 1. Acute hypoxic respiratory failure Unclear etiology. No leukocytosis or fevers. Desaturations at home in the 60s-70s with exertion. No hypoxia at rest. Tachycardic at times. Prior chest CT 09/06/16 showed diffuse COPD and basilar peripheral fibrotic changes, scattered areas of lymph nodes throughout the mesentery with the largest measuring 1.3 cm the right paratracheal region most likely related to reactive lymphadenopathy. No follow-up CT was obtained as far as her knowledge. Very remote smoking history, 7.5-pack-year history. No current home oxygen requirements, however has had previous supplemental oxygen about a year ago after leaving the hospital. Patient reports she was told after her pulmonary function tests that she has COPD, these tests are not available. Last echocardiogram was in 2014 showed evidence of some diastolic dysfunction with estimated EF of 60%. RVSP was not estimated. Agree with repeating echocardiogram. Can obtain repeat CT the chest with high resolution, possible worsening fibrotic changes? There is also possibility for pulmonary embolism given the patient's history of malignancy and current hormonal therapy. Patient has responded well to systemic steroids, bronchodilators. Continue IV steroids and transition to oral tomorrow if continues to improve. Continue aerosols and increase activity as tolerated, participate in PT/OT. 2. Presumed COPD/obstructive sleep apnea Does not appear to be in an acute exacerbation at this time. No indication for antibiotics. Patient followed with Dr. Wilson while in hospital approximately one year ago, had one f/u visit with Meseret Sommers NP in the clinic. Pulmonary function tests and polysomnogram were ordered, however these were not completed here at [facility]. Patient states she had no other testing at other facilities. Chest imaging does indicate COPD. Will request records from her primary care physician's office for further clarification of past testing. If no prior pulmonary function tests, would recommend repeating when discharged. Her overnight pulse oximetry in 2016 also indicated desaturations, patient does snore. No daytime sleepiness. 3. History of nephrectomy secondary to renal carcinoma/remote smoking history/morbid obesity/TIA/CKD/hypertension/gout Complicates care, management, recovery, and prognosis. Continue home medications as indicated. Thank you for the opportunity to participate in this patient's care, please do not hesitate contact us with any further questions or concerns. This note was generated with FI[employer]1 dictation software. It may contain incorrect words, spelling, and punctuation that were not noted in checking the note before signing.
--- NOTE | 2017-12-03 08:22 | CON.PCM_ITS ---
Problem List (1) Acute respiratory failure with hypoxia Status: Acute (2) History of tobacco use Status: Chronic Comment: quit 1994 (3) Hypertension Status: Chronic Qualifiers: Hypertension type: essential hypertension Qualified Code(s): I10 - Essential (primary) hypertension (4) CKD (chronic kidney disease) Status: Chronic Qualifiers: Chronic kidney disease stage: stage 3 (moderate) Qualified Code(s): N18.3 - Chronic kidney disease, stage 3 (moderate) (5) Gout Status: Chronic Qualifiers: Gout site: unspecified site Gout etiology: unspecified cause Chronicity: unspecified Qualified Code(s): M10.9 - Gout, unspecified (6) History of TIA (transient ischemic attack) Status: Chronic (7) History of kidney cancer Status: Chronic (8) Obesity, morbid, BMI 40.0-49.9 Status: Chronic Reason for Consult Date of Consultation: 12/03/17 Reason for Consultation: ?COPD exacerbation History of Present Illness: The patient is a 82 year old F past medical history as below who presented to the ED at the urging of her PCP secondary to ongoing and progressive dyspnea on exertion since October 05. The patient noted she had significant hypoxia at home in the 70s and her breathing has gotten somewhat worse in the last 3-4 days. She denies any fever or chills. She does have a cough of clear sputum, mainly in the mornings. Denies any hemoptysis, shortness of breath at rest, orthopnea, dizziness, or syncope. Patient denies any sore throat, rhinorrhea, or other upper respiratory symptoms. She has not had any recent weight loss. Initial vital signs 200/104, pulse 94, RR 22, 98.2?F, and 94% on room air. Patient reportedly desaturated to 89% on room air, and was later ambulated on room air and desaturated further to 86%. The patient was placed on 2 L of oxygen and was saturating at 94%. Blood work showed no leukocytosis, hemoglobin normal. Chemistry remarkable for chloride of 112, BUN of 34 and creatinine 1.60. Creatinine in September 2016 was between 1.08 and 1.48. BNP was 252. TSH normal 2.65. Troponin negative ?1. A respiratory viral panel was negative. Patient was started on aerosol treatments and chest physiotherapy. She was given a dose of IV doxycycline and started on IV steroids and scheduled bronchodilators. She was admitted to the medical surgical floor for further management. Pulmonary was consulted secondary to possible COPD exacerbation. Her blood pressure remains elevated. She has been weaned to 1 L of oxygen supplementation. Patient reports she initially presented to her primary care physician's office, Dr. Dustin Mendieta, on October 05. He performed a chest x-ray. The patient was placed on some Lasix and the chest x-ray was repeated. Her PCP reportedly did not like the looks of it so the patient was set up for an appointment in the pulmonary clinic on December 21, 2017. Patient states that she waited several days , however she felt like her breathing was worsening, so she presented to the ED. The patient states she saw Meseret Sommers and Dr. Wilson approximately 1 year ago as a hospital follow-up for hypoxic respiratory insufficiency secondary to influenza A and was placed on Symbicort and Ventolin. Her breathing did improve at that time, however she was sent home on 2 L of oxygen. She is only been to the pulmonary clinic once, on 09/23/16. She states she had subsequent pulmonary function tests and a sleep study, however these do not appear to be completed, possibly done at outside facility. She was also to have alpha-1 antitrypsin testing, however unclear if this was completed. Patient did have an overnight pulse oximetry on 09/07/15 while wearing 2 L of oxygen supplementation, showed desaturations. Patient also reports a past history of asthma. She is on hormone replacement at baseline secondary to issues with menopause. Patient does have a history of smoking, 1/2 PPD for 15 years and quit in 1994 (7.5 [id number]). She does have a pulse oximeter at home and monitors this regularly. She typically desaturates after taking a couple of steps, however in the last several weeks she has significantly desaturated into the 60s to 70s with minimal exertion. Echocardiogram 04/09/15 showed normal LV size, mild concentric LVH, estimated EF 60%, impaired relaxation of left ventricle, and a mild focal aortic valve calcification. She has been seen in the past by [facility] for high-grade AV block. Patient had a chest CT in August 2016 that showed diffuse COPD and basilar for peripheral fibrotic changes. There were scattered areas of lymph nodes throughout the mesentery with the largest measuring 1.3 cm in the right paratracheal region most likely consistent with a reactive lymphadenopathy. Past Medical History Past Medical History (Chronic Problems): Chronic Problems Obesity, morbid, BMI 40.0-49.9 (Chronic) History of tobacco use (Chronic) quit 1994 Gout (Chronic) Hypoxia (Chronic) COPD exacerbation (Chronic) Hypertension (Chronic) History of TIA (transient ischemic attack) (Chronic) History of kidney cancer (Chronic) CKD (chronic kidney disease) (Chronic) Allergies clindamycin [From Cleocin] Allergy (Verified 12/02/17 13:59) Unknown oxycodone HCl [From OxyContin] Allergy (Verified 12/02/17 13:59) Anaphylaxis Sulfa (Sulfonamide Antibiotics) Allergy (Verified 12/02/17 13:59) Anaphylaxis vancomycin Allergy (Verified 12/02/17 13:59) Hives guaifenesin [From Entex LA] Adverse Reaction (Verified 12/02/17 13:59) Unknown phenylephrine [From Entex LA] Adverse Reaction (Verified 12/02/17 13:59) Unknown phenylpropanolamine [From Entex LA] Adverse Reaction (Verified 12/02/17 13:59) Unknown BETA BLOCKERS Adverse Reaction (Uncoded 12/02/17 13:59) Unknown Home Medications: Ambulatory Orders Medication Instructions Recorded Aspirin 325 mg PO DAILY@0800 04/04/15 Estrogens, Conjugated [Premarin] 0.3 mg PO UD 04/04/15 Hydrochlorothiazide [Hctz] 25 mg PO DAILY 04/04/15 MedroxyPROGESTERone [Provera] 2.5 mg PO UD 05/18/15 Albuterol Inhaler [Ventolin Hfa] 2 puff INHALATION Q4H PRN PRN #1 09/11/16 inhaler Hydrocodone Bitart/Apap 5-325 1 - 2 tablet PO Q4H PRN PRN #20 12/23/16 [[place] 5/325] tablet Budesonide/Formoterol 160/4.5 2 puff INHALATION BID 12/02/17 [Symbicort 160/4.5 Mcg Inhaler (SP)] Felodipine [Plendil] 10 mg PO DAILY 12/02/17 Surgical History: - - Tonsillectomy, appendectomy, cholecystectomy, bilateral shoulder rotator cuff repair, right elbow fracture with surgery with pin in place, bilateral total knee replacement. Renal cell carcinoma Psychiatric History: No pertinent psych hx SCIENTIFIC SPECIALIST History: No pertinent SCIENTIFIC SPECIALIST history Lives: With Family - She lives with her youngest son. Smoking Status: Former smoker - 7.5-pack-year history Tobacco Use: Cigarettes Alcohol: None Drugs: None - *Family History Paternal History Items: Cancer - Pancreatic CA, age 3838 years old., Diabetes, Heart Disease, Hypertension Maternal History Items: Heart Disease, Hypertension Review of Systems Constitutional: Denies: Anorexia, Chills, Fever, Night Sweats, Malaise, Weakness , Weight Change, Fatigue Eyes: Denies: Vision Change HEENT: Denies: Difficulty Swallowing, Head Aches, Nasal bleeding, Nasal Congestion, Post Nasal Drip, Sinus Congestion, Sinus Drainage, Sore Throat Cardiovascular: Denies: Chest Pain, Chest Tightness, Edema, Light Headedness, Orthopnea, Palpitations, Paroxysmal Noc. Dyspnea, Syncope Respiratory: Reports: Cough - Mostly nonproductive except in the morning, Shortness of breath upon exertion, Sputum production - Clear, mainly in a.m., Wheezing. Denies: Hemoptysis, Shortness of breath at rest Gastrointestinal: Denies: Abdominal Pain, Constipation, Diarrhea, Dyspepsia, Hematemesis, Hematochezia, Nausea, Melena, Vomiting Genitourinary: Reports: Nocturia. Denies: Dysuria, Frequency, Hematuria, Retention Gynecological: Denies: Breast symptoms Musculoskeletal: Reports: Joint stiffness. Denies: Back Pain, Muscle pain, Neck Pain Skin: Denies: Rash, Wounds Neurological: Denies: Balance problems, Change in Speech, Confusion, Difficulty swallowing, Focal weakness, Numbness, Tingling, Tremor, Seizures Psychiatric: Denies: Anxiety, Depression Endocrine: Denies: Change in Body Habitus, Polydipsia, Polyuria Hematologic/ Lymphatic: Denies: Adenopathy, Anemia, Easy Bruising, Easy Bleeding , Hx of blood clot Patient Problems: Active and Suspected Problems Acute respiratory failure with hypoxia (Acute) Subjective: Patient was seen and examined. She denies any current shortness of breath, sitting up in bed eating her breakfast. No current wheezing or cough. Objective: Clinical Impression(s) from Imaging Studies Chest X-Ray 12/02/17 14:22 IMPRESSION: Degenerative changes, as described above. No demonstrated acute cardiopulmonary process. No significant interval change Electronically Signed: Delmer Barrett MD at 15:33 EDT , Service support , - Physical Exam General: Alert, Oriented x3, Cooperative, No apparent distress, Well developed, Well nourished, - - No conversational dyspnea HEENT: Atraumatic, Normocephalic Oral: Moist Mucosa, No Gingival or Mucosal Lesions/ Ulcerations, - - Crowded posterior oropharynx Neck: Supple, No JVD, No Nodes, Trachea Midline, - - Large neck circumference Lungs: Clear to auscultation, No rhonchi, No wheeze, No rales, Diminished, - - Symmetrical expansion, no dullness to percussion. No accessory muscle use Cardiovascular: Regular rate, Regular Rhythm, Normal S1, Normal S2, No murmurs, No rub noted, No Gallop Abdomen: Bowel Sounds Present, Soft, Non Tender, Non-Distended, Obese Extremities: No clubbing, No cyanosis, No edema, Capillary Refill Less than 3 Seconds, Peripheral Pulses Normal Skin: No rashes, No breakdown Musculoskeletal: No Tenderness to Palpation of Joints or Extremities Lymphatic: No Cervical, Supraclavicular, or Inguinal Adenopathy Neurological: Cranial nerves II-XII grossly intact, Neuro grossly intact, Motor Exam 5/5 strength throughout Psych/Mental Status: Alert and oriented to time, place, person, mood and affect Vital Signs Temp Pulse Resp BP Pulse Ox 98.5 F 100 20 H 164/85 H 95 12/03/17 02:30 12/03/17 06:45 12/03/17 06:45 12/03/17 02:30 12/03/17 06:45 Oxygen Flow Rate (L/min) 1 Oxygen Delivery Method Nasal Cannula Weight: 256 lb 13.416 oz Body Mass Index (BMI) 41.4 Intake and Output for Last 24 Hours 12/01/17 12/02/17 12/03/17 23:59 23:59 23:59 Intake Total 1143 / 1143 510 / 510 Output Total 850 / 850 Balance 1143 / 1143 -340 / -340 Microbiology Past 72 Hours 12/02/17 20:10 Respiratory Panel (PCR) - Final Mucosa - Nasopharyngeal Laboratory Tests Past 24 Hrs 12/03/17 12/03/17 05:35 05:35 WBC 6.1 RBC 4.44 Hgb 13.0 Hct 39.5 MCV 89.0 MCH 29.3 MCHC 32.9 RDW 15.2 H RDW Differential 49.2 H Plt Count 253 MPV 10.4 Immature Gran % (Auto) 0.200 Neut % (Auto) 89.7 H Lymph % (Auto) 8.9 L [place] % (Auto) 1.2 Eos % (Auto) 0.0 Baso % (Auto) 0.0 Absolute Neuts (auto) 5.5 Absolute Lymphs (auto) 0.54 L Total Counted Not Reportable Sodium 141 Potassium 4.5 Chloride 111 H Carbon Dioxide 22.0 Anion Gap 8 BUN 36 H Creatinine 1.47 H Estim Creat Clear Calc 28.57 Est GFR (MDRD) Af Amer 44 L Est GFR (MDRD) Non-Af 36 L BUN/Creatinine Ratio 24.5 H Glucose 152 H Calcium 8.5 Assessment/Plan Active and Suspected Problems Acute respiratory failure with hypoxia (Acute) RECOMMENDATIONS 1. Wean oxygen supplementation to keep saturations 88-92%. 2. Encourage incentive spirometer 3. Increase activity as tolerated, PT/OT consult 4. Continue bronchodilators 5. Continue IV steroids for now, may DC tomorrow if improving and since no significant wheezing 6. Obtain high resolution chest CT 7. Walking oximetry prior to discharge IMPRESSIONS 1. Acute hypoxic respiratory failure Unclear etiology. No leukocytosis or fevers. Desaturations at home in the 60s- 70s with exertion. No hypoxia at rest. Tachycardic at times. Prior chest CT 09/06/16 showed diffuse COPD and basilar peripheral fibrotic changes, scattered areas of lymph nodes throughout the mesentery with the largest measuring 1.3 cm the right paratracheal region most likely related to reactive lymphadenopathy. No follow-up CT was obtained as far as her knowledge. Very remote smoking history, 7.5-pack-year history. No current home oxygen requirements, however has had previous supplemental oxygen about a year ago after leaving the hospital. Patient reports she was told after her pulmonary function tests that she has COPD, these tests are not available. Last echocardiogram was in 2014 showed evidence of some diastolic dysfunction with estimated EF of 60%. RVSP was not estimated. Agree with repeating echocardiogram. Can obtain repeat CT the chest with high resolution, possible worsening fibrotic changes? There is also possibility for pulmonary embolism given the patient's history of malignancy and current hormonal therapy. Patient has responded well to systemic steroids, bronchodilators. Continue IV steroids and transition to oral tomorrow if continues to improve. Continue aerosols and increase activity as tolerated, participate in PT/OT. 2. Presumed COPD/obstructive sleep apnea Does not appear to be in an acute exacerbation at this time. No indication for antibiotics. Patient followed with Dr. Wilson while in hospital approximately one year ago, had one f/u visit with Meseret Sommers NP in the clinic. Pulmonary function tests and polysomnogram were ordered, however these were not completed here at [facility]. Patient states she had no other testing at other facilities. Chest imaging does indicate COPD. Will request records from her primary care physician's office for further clarification of past testing. If no prior pulmonary function tests, would recommend repeating when discharged. Her overnight pulse oximetry in 2016 also indicated desaturations, patient does snore. No daytime sleepiness. 3. History of nephrectomy secondary to renal carcinoma/remote smoking history/ morbid obesity/TIA/CKD/hypertension/gout Complicates care, management, recovery, and prognosis. Continue home medications as indicated. Thank you for the opportunity to participate in this patient's care, please do not hesitate contact us with any further questions or concerns. This note was generated with [employer] dictation software. It may contain incorrect words, spelling, and punctuation that were not noted in checking the note before signing.
[2017-12-03] MEDS: amLODIPine 10 MG Tablet PO (08:42)
[2017-12-03] MEDS: guaiFENesin 1,200 MG Tablet 1200 MG PO ×2 (08:42→22:09)
[2017-12-03] MEDS: Famotidine 20 MG Tablet PO (08:42)
[2017-12-03] MEDS: Docusate Sodium 100 MG Capsule PO (08:42)
[2017-12-03] MEDS: Aspirin 325 MG Tablet PO (08:42)
[2017-12-03] MEDS: hydroCHLOROthiazide 25 MG Tablet PO (08:42)
--- NOTE | 2017-12-03 09:20 | PCM.PROGNOTE ---
Patient Problems: Active and Suspected Problems Acute respiratory failure with hypoxia (Acute) Subjective: She feels better today but has dyspnea with ADL, i.e. going to bathroom. No cough, no chest pain. - Physical Exam General: Alert, Oriented x3, Cooperative HEENT: Atraumatic, PERRLA, Normocephalic Oral: Moist Mucosa, No Gingival or Mucosal Lesions/ Ulcerations Neck: Supple, No JVD Lungs: Rhonchi - Diffusely at mid to upper lung [place] bilaterally. Cardiovascular: Regular rate, Regular Rhythm, Normal S1, Normal S2, No murmurs, No Ectopic Activity Abdomen: Bowel Sounds Present, Soft, Non Tender, Non-Distended, No Hepato-splenomegaly, Obese Extremities: No clubbing, No cyanosis, No edema Skin: No rashes, No breakdown Musculoskeletal: No Tenderness to Palpation of Joints or Extremities Lymphatic: No Cervical, Supraclavicular, or Inguinal Adenopathy Neurological: Cranial nerves II-XII grossly intact, Neuro grossly intact Psych/Mental Status: Normal Affect, Appropriate Vital Signs Temp Pulse Resp BP Pulse Ox 98.0 F 104 H 20 H 180/98 H 94 12/03/17 08:30 12/03/17 08:30 12/03/17 08:30 12/03/17 08:30 12/03/17 08:30 Oxygen Flow Rate (L/min) 1 Oxygen Delivery Method Room Air Weight: 256 lb 13.416 oz Body Mass Index (BMI) 41.4 Intake and Output for Last 24 Hours 12/01/17 12/02/17 12/03/17 23:59 23:59 23:59 Intake Total 1143 / 1143 510 / 510 Output Total 850 / 850 Balance 1143 / 1143 -340 / -340 Microbiology Past 72 Hours 12/02/17 20:10 Respiratory Panel (PCR) - Final Mucosa - Nasopharyngeal Laboratory Tests Past 24 Hrs 12/03/17 12/03/17 05:35 05:35 WBC 6.1 RBC 4.44 Hgb 13.0 Hct 39.5 MCV 89.0 MCH 29.3 MCHC 32.9 RDW 15.2 H RDW Differential 49.2 H Plt Count 253 MPV 10.4 Immature Gran % (Auto) 0.200 Neut % (Auto) 89.7 H Lymph % (Auto) 8.9 L [place] % (Auto) 1.2 Eos % (Auto) 0.0 Baso % (Auto) 0.0 Absolute Neuts (auto) 5.5 Absolute Lymphs (auto) 0.54 L Total Counted Not Reportable Sodium 141 Potassium 4.5 Chloride 111 H Carbon Dioxide 22.0 Anion Gap 8 BUN 36 H Creatinine 1.47 H Estim Creat Clear Calc 28.57 Est GFR (MDRD) Af Amer 44 L Est GFR (MDRD) Non-Af 36 L BUN/Creatinine Ratio 24.5 H Glucose 152 H Calcium 8.5 Diagnostic Data Chest X-Ray 12/02/17 14:22 IMPRESSION: Degenerative changes, as described above. No demonstrated acute cardiopulmonary process. No significant interval change Electronically Signed: Delmer Barrett MD at 15:33 EDT , Service support , Medical Necessity - Tobacco Use Smoking Status: Former smoker Tobacco Use: Non-smoker - Quit 1994, notes ~ < 1/2 ppd since youth. Assessment/Plan Active and Suspected Problems Acute respiratory failure with hypoxia (Acute) Patient is an 82 years old female who was admitted on 12/02/17 for subacute hypoxic respiratory failure. She has history of COPD, had similar episode about one year ago. She had upper respiratory symptoms in September, having problems with dyspnea since then. She reports Oxygen saturation in 70's at home, 86% on arrival with room air, along with tachypnea. #1 Subacute hypoxic respiratory failure with underling COPD exacerbation. She is on Symbicort and albuterol MDI prn at home. She has no prior without for lung condition. She reports approximately 20 to 30 pack-year of smoking history, quit in 1989. PFT as outpatient. Continue Solu-Medrol. Oxygen prn. She still has dyspnea on mild exertion. Bronchodilator: DuoNeb and albuterol prn. She was scheduled for pulmonary consult as outpatient. Consultation requested. #2 Essential hypertension. Blood pressure is stable. Use amlodipine for Plendil. #3 CKD III. Baseline creatinine 1.4. 1.67 on admission. Stable. #4 History of renal cell carcinoma s/p nephrectomy. #5 History of TIA. Continue aspirin. VTE prophylaxis: heparin SQ. GI prophylaxis: H2 bill po. She is full code. Disposition: home in 2 to 3 days. Code Visit Inpatient E&M: 52853 Subs Hosp L3
--- NOTE | 2017-12-03 09:24 | PN_ITS ---
Patient Problems: Active and Suspected Problems Acute respiratory failure with hypoxia (Acute) Subjective: She feels better today but has dyspnea with ADL, i.e. going to bathroom. No cough, no chest pain. - Physical Exam General: Alert, Oriented x3, Cooperative HEENT: Atraumatic, PERRLA, Normocephalic Oral: Moist Mucosa, No Gingival or Mucosal Lesions/ Ulcerations Neck: Supple, No JVD Lungs: Rhonchi - Diffusely at mid to upper lung [place]a bilaterally. Cardiovascular: Regular rate, Regular Rhythm, Normal S1, Normal S2, No murmurs, No Ectopic Activity Abdomen: Bowel Sounds Present, Soft, Non Tender, Non-Distended, No Hepato- splenomegaly, Obese Extremities: No clubbing, No cyanosis, No edema Skin: No rashes, No breakdown Musculoskeletal: No Tenderness to Palpation of Joints or Extremities Lymphatic: No Cervical, Supraclavicular, or Inguinal Adenopathy Neurological: Cranial nerves II-XII grossly intact, Neuro grossly intact Psych/Mental Status: Normal Affect, Appropriate Vital Signs Temp Pulse Resp BP Pulse Ox 98.0 F 104 H 20 H 180/98 H 94 12/03/17 08:30 12/03/17 08:30 12/03/17 08:30 12/03/17 08:30 12/03/17 08:30 Oxygen Flow Rate (L/min) 1 Oxygen Delivery Method Room Air Weight: 256 lb 13.416 oz Body Mass Index (BMI) 41.4 Intake and Output for Last 24 Hours 12/01/17 12/02/17 12/03/17 23:59 23:59 23:59 Intake Total 1143 / 1143 510 / 510 Output Total 850 / 850 Balance 1143 / 1143 -340 / -340 Microbiology Past 72 Hours 12/02/17 20:10 Respiratory Panel (PCR) - Final Mucosa - Nasopharyngeal Laboratory Tests Past 24 Hrs 12/03/17 12/03/17 05:35 05:35 WBC 6.1 RBC 4.44 Hgb 13.0 Hct 39.5 MCV 89.0 MCH 29.3 MCHC 32.9 RDW 15.2 H RDW Differential 49.2 H Plt Count 253 MPV 10.4 Immature Gran % (Auto) 0.200 Neut % (Auto) 89.7 H Lymph % (Auto) 8.9 L [place] % (Auto) 1.2 Eos % (Auto) 0.0 Baso % (Auto) 0.0 Absolute Neuts (auto) 5.5 Absolute Lymphs (auto) 0.54 L Total Counted Not Reportable Sodium 141 Potassium 4.5 Chloride 111 H Carbon Dioxide 22.0 Anion Gap 8 BUN 36 H Creatinine 1.47 H Estim Creat Clear Calc 28.57 Est GFR (MDRD) Af Amer 44 L Est GFR (MDRD) Non-Af 36 L BUN/Creatinine Ratio 24.5 H Glucose 152 H Calcium 8.5 Diagnostic Data Chest X-Ray 12/02/17 14:22 IMPRESSION: Degenerative changes, as described above. No demonstrated acute cardiopulmonary process. No significant interval change Electronically Signed: Delmer Barrett MD at 15:33 EDT , Service support , Medical Necessity - Tobacco Use Smoking Status: Former smoker Tobacco Use: Non-smoker - Quit 1994, notes ~ < 1/2 ppd since youth. Assessment/Plan Active and Suspected Problems Acute respiratory failure with hypoxia (Acute) Patient is an 82 years old female who was admitted on 12/02/17 for subacute hypoxic respiratory failure. She has history of COPD, had similar episode about one year ago. She had upper respiratory symptoms in September, having problems with dyspnea since then. She reports Oxygen saturation in 70's at home, 86% on arrival with room air, along with tachypnea. #1 Subacute hypoxic respiratory failure with underling COPD exacerbation. She is on Symbicort and albuterol MDI prn at home. She has no prior without for lung condition. She reports approximately 20 to 30 pack-year of smoking history, quit in 1989. PFT as outpatient. Continue Solu-Medrol. Oxygen prn. She still has dyspnea on mild exertion. Bronchodilator: DuoNeb and albuterol prn. She was scheduled for pulmonary consult as outpatient. Consultation requested. #2 Essential hypertension. Blood pressure is stable. Use amlodipine for Plendil. #3 CKD III. Baseline creatinine 1.4. 1.67 on admission. Stable. #4 History of renal cell carcinoma s/p nephrectomy. #5 History of TIA. Continue aspirin. VTE prophylaxis: heparin SQ. GI prophylaxis: H2 bill po. She is full code. Disposition: home in 2 to 3 days. Code Visit Inpatient E&M: [id number] Subs Hosp L3
--- NOTE | 2017-12-03 11:51 | CT_ITS ---
STUDY: CT CHEST WITHOUT CONTRAST REASON FOR EXAM: Female, 82 years old. Wheezing, cough, COPD HX-RENAL CA W/ KIDNEY REMOVED STAGE 3 KIDNEY DZ FORMER SMOKER HTN RADIATION DOSAGE (If Supplied By Facility): CTDIvol = ( 24.18 ) mGy, DLP = ( 781.18 ) mGycm TECHNIQUE: Transaxial imaging was performed without the administration of intravenous contrast material. Individualized dose optimization techniques were used for this CT. COMPARISON: 09.06.16 FINDINGS: There is no pneumothorax. There are emphysematous changes of the lungs with emphysematous blebs. There is basilar fibrosis. There is no demonstrated pleural abnormality. There are degenerative changes of the shoulders. There are calcifications of the coronary arteries. Prominent axillary lymph nodes. Stable prominence of the lymph nodes in the mediastinum. Normal hilar regions. Normal pulmonary arteries. There is atherosclerotic calcification of the aortic arch with tortuosity and elongation of the aortic arch and descending thoracic aorta. There are multi-level degenerative changes of the thoracic spine. There is no demonstrated abnormality of the visualized upper abdomen. CT/Chest without Contrast IMPRESSION: Stable emphysematous changes along with lower lobe fibrosis. There are coronary arterial calcifications. Stable mediastinal lymph nodes. Electronically Signed: Adonay Martinez MD at 16:19 EDT , Service support ,
--- NOTE | 2017-12-03 12:57 | PCA ---
Called [facility] to obtain pt medical records regarding order for records. Fax number [phone]
--- NOTE | 2017-12-03 15:22 | CASEMGMT ---
CM Assessment : See Link Patient has had oxygen, in the past, from [facility]. CM will follow for potential home oxygen setup needs. DC Plan: Home, with son.
--- NOTE | 2017-12-03 15:41 | CHAPLAIN ---
Type of Pastoral Visit _x__ Initial Visit ___ Follow-up Visit ___ On-call Visit ___ General Patient Visit ___ Spiritual Assessment ___ Family Conference ___ Bereavement ___ Rapid Response ___ Code Blue ___ Other (describe below) Pastoral Care Referral From _x__ Patient ___ Family ___ Nurse ___ Physician ___ Instructor Nurse ___ Concrete Engineer ___ Other (describe below) Sacrament/Intervention _x__ Active listening ___ Anointing ___ Baptist ___ Bereavement ___ Communion ___ Macarena exploration ___ _x__ Life review _x__ Prayer ___ Reconciliation ___ Sacrament of Sick ___ Supportive presence ___ Wedding ___ Other (describe below) Pastoral Comments
[2017-12-03] MEDS: Acetaminophen 325 MG Tablet 650 MG PO (22:09)
[2017-12-03] MEDS: MELATONIN 3 MG TABLET PO (22:09)
[2017-12-04] VITALS (10 sets, daily range): BP systolic 142–151; BP diastolic 75–79; PULSE 74–111; RESP 16–22; TEMP 36.6–37; O2SAT 79–95
[2017-12-04] MEDS: Ipratropium/Albuterol Sulfate 3 ML AMPUL.NEB INHALATION ×5 (03:23→19:47)
[2017-12-04] MEDS: 0.9% NaCl Peripheral Flush Adult/Peds IV ×3 (06:32→21:03)
--- NOTE | 2017-12-04 06:53 | PN_ITS ---
Patient Problems: Active and Suspected Problems Acute respiratory failure with hypoxia (Acute) Subjective: The patient was seen and examined at the bedside this morning. Events from the last 24 hours have been reviewed. The patient is currently afebrile, hemodynamically stable and maintaining appropriate oxygen saturations on room air. Despite the patient's insistence that she did have pulmonary function testing completed here previously, following investigation by the pulmonary function lab, it is clear that the patient has never had PFTs. The patient does confirm the ongoing presence of exertional dyspnea. She reportedly walked in the hallway this morning on room air and desaturated into the high 70s. Objective: The patient's most recent lab work, culture data and imaging studies have all been personally reviewed. Respiratory viral panel was negative. Noncontrasted chest CT completed December 03 showed evidence of diffuse bilateral emphysematous changes with subpleural bleb formation and basilar fibrotic changes. Surface echocardiogram did reveal evidence of stage I diastolic dysfunction and pulmonary hypertension with a pulmonary artery systolic pressure estimated to be 59 mmHg. - Physical Exam General: Alert, Cooperative, No apparent distress, - - Morbidly obese. Sitting in bedside recliner. HEENT: Atraumatic, PERRLA, Normocephalic Oral: No Gingival or Mucosal Lesions/ Ulcerations Neck: Supple, No Nodes, Trachea Midline, - - Large neck circumference with redundant soft tissue Lungs: No rhonchi, No wheeze, No rales, Diminished Cardiovascular: Regular rate, Regular Rhythm, Normal S1, Normal S2, No murmurs Abdomen: Bowel Sounds Present, Soft, Non Tender, Obese Extremities: No clubbing, No cyanosis Skin: No rashes, No breakdown Musculoskeletal: No Muscle Wasting Lymphatic: No Cervical, Supraclavicular, or Inguinal Adenopathy Neurological: Neuro grossly intact Psych/Mental Status: Normal Affect, Appropriate Vital Signs Temp Pulse Resp BP Pulse Ox 97.8 F 100 18 142/77 H 94 12/04/17 02:20 12/04/17 03:23 12/04/17 03:23 12/04/17 02:20 12/04/17 02:20 Oxygen Flow Rate (L/min) 1 Oxygen Delivery Method Room Air Weight: 256 lb 13.416 oz Body Mass Index (BMI) 41.4 Intake and Output for Last 24 Hours 03/28/18 03/29/18 03/30/18 23:59 23:59 23:59 Intake Total 1143 / 1143 1876 / 1876 Output Total 850 / 850 600 / 600 Balance 1143 / 1143 1026 / 1026 -600 / -600 Microbiology Past 72 Hours 12/02/17 20:10 Respiratory Panel (PCR) - Final Mucosa - Nasopharyngeal Laboratory Tests Past 24 Hrs 12/03/17 05:35 Total Counted Not Reportable Labs (Last 48 Hours) 12/02/17 12/02/17 12/02/17 14:35 14:36 14:36 WBC 10.4 RBC 4.78 Hgb 14.0 Hct 42.4 MCV 88.7 MCH 29.3 MCHC 33.0 RDW 14.9 H RDW Differential 48.7 H Plt Count 255 MPV 10.0 Immature Gran % (Auto) 0.100 Neut % (Auto) 71.3 H Lymph % (Auto) 19.5 [place] % (Auto) 8.4 Eos % (Auto) 0.5 Baso % (Auto) 0.2 Absolute Neuts (auto) 7.4 Absolute Lymphs (auto) 2.03 Total Counted Not Reportable Sodium 145 Potassium 3.7 Chloride 112 H Carbon Dioxide 23.0 Anion Gap 10 BUN 34 H Creatinine 1.60 H Estim Creat Clear Calc 26.25 Est GFR (MDRD) Af Amer 40 L Est GFR (MDRD) Non-Af 33 L BUN/Creatinine Ratio 21.2 H Glucose 100 Calcium 9.0 Magnesium 2.1 Troponin I 0.03 B-Natriuretic Peptide TSH 2.65 12/02/17 12/03/17 12/03/17 14:36 05:35 05:35 WBC 6.1 RBC 4.44 Hgb 13.0 Hct 39.5 MCV 89.0 MCH 29.3 MCHC 32.9 RDW 15.2 H RDW Differential 49.2 H Plt Count 253 MPV 10.4 Immature Gran % (Auto) 0.200 Neut % (Auto) 89.7 H Lymph % (Auto) 8.9 L [place] % (Auto) 1.2 Eos % (Auto) 0.0 Baso % (Auto) 0.0 Absolute Neuts (auto) 5.5 Absolute Lymphs (auto) 0.54 L Total Counted Not Reportable Sodium 141 Potassium 4.5 Chloride 111 H Carbon Dioxide 22.0 Anion Gap 8 BUN 36 H Creatinine 1.47 H Estim Creat Clear Calc 28.57 Est GFR (MDRD) Af Amer 44 L Est GFR (MDRD) Non-Af 36 L BUN/Creatinine Ratio 24.5 H Glucose 152 H Calcium 8.5 Magnesium Troponin I B-Natriuretic Peptide 252.0 H TSH Microbiology 12/02/17 20:10 Mucosa - Nasopharyngeal Respiratory Panel (PCR) - Final Clinical Impression(s) from Imaging Studies Chest X-Ray 12/02/17 14:22 IMPRESSION: Degenerative changes, as described above. No demonstrated acute cardiopulmonary process. No significant interval change Electronically Signed: Delmer Barrett MD at 15:33 EDT , Service support , Chest CT 12/03/17 11:51 IMPRESSION: Stable emphysematous changes along with lower lobe fibrosis. There are coronary arterial calcifications. Stable mediastinal lymph nodes. Electronically Signed: Adonay Martinez MD at 16:19 EDT , Service support , Medical Necessity - Tobacco Use Smoking Status: Former smoker - 7.5-pack-year history Tobacco Use: Cigarettes Assessment/Plan Active and Suspected Problems Acute respiratory failure with hypoxia (Acute) RECOMMENDATIONS: 1. Perform walking oximetry study prior to consideration for discharge from the hospital. Anticipate home-going oxygen need. 2. Outpatient PFTs and polysomnogram are recommended. 3. Will check autoimmune/vasculitis profile along with alpha-1 antitrypsin level 4. Continue aerosol treatments as ordered. 5. Transition from IV steroids to prednisone 40 mg and complete a 5 day burst. 6. Please ensure that the patient has follow-up scheduled in the pulmonary medicine clinic within 2 weeks of her discharge from the hospital. IMPRESSIONS: 1. Acute hypoxemic respiratory insufficiency The patient reports no previous supplemental oxygen requirement. Her complaints of dyspnea along with newly discovered hypoxia is likely multifactorial in etiology. She has baseline underlying fibrotic changes in her lungs along with emphysematous changes bilaterally. While she has a relatively limited smoking history herself, she does admit to significant secondhand smoke exposure. The patient undoubtedly needs to be seen in the pulmonary medicine clinic within 2 weeks of her discharge. She needs to complete baseline pulmonary function testing with subsequent optimization of her inhaler regimen. In addition to the aforementioned, the patient has evidence of diastolic dysfunction and pulmonary hypertension, all of which are likely contributing to her symptoms also. Would plan to continue current diuretic regimen and attempt to maintain euvolemic. Perform walking oximetry study and obtain supplemental oxygen prior to discharge. Secondary pulmonary hypertension workup will also be started. The patient would likely benefit from an outpatient polysomnogram. Would plan to continue current scheduled aerosol treatments. Transition from IV steroids to prednisone and complete a 5 day treatment course. 2. Radiographic evidence of fibrotic changes and emphysema The changes noted on CT seem out of proportion to her self-reported limited smoking history. However, she does admit to significant secondhand smoke exposure. Nevertheless, the patient needs to have outpatient PFTs completed to confirm a diagnosis of COPD and grade its severity. She can continue to utilize Symbicort upon discharge from the hospital. Upon follow-up in the pulmonary medicine clinic and after completion of PFTs, her inhaler regimen can be further optimized. Will check alpha-1 antitrypsin level. 3. Heart failure with preserved ejection fraction/pulmonary hypertension Continue current diuretic regimen. Will send autoimmune/vasculitis workup. The patient may benefit from an outpatient polysomnogram. 4. Morbid obesity/hypertension/chronic kidney disease Complicates care, management, recovery and prognosis. Continue home medications as indicated. Encourage incentive spirometer use and mobilize patient as tolerated. This note was generated with [employer] dictation software. It may contain incorrect words, spelling, and punctuation that were not noted in checking the note before signing. Code Visit Inpatient E&M: 01666 [facility] L3
[2017-12-04] MEDS: Docusate Sodium 100 MG Capsule PO (07:51)
[2017-12-04] MEDS: Famotidine 20 MG Tablet PO (07:51)
[2017-12-04] MEDS: Aspirin 325 MG Tablet PO (07:52)
[2017-12-04] MEDS: guaiFENesin 1,200 MG Tablet 1200 MG PO ×2 (07:52→21:03)
[2017-12-04] MEDS: amLODIPine 10 MG Tablet PO (07:52)
[2017-12-04] MEDS: hydroCHLOROthiazide 25 MG Tablet PO (07:52)
--- NOTE | 2017-12-04 11:20 | CASEMGMT ---
Patient's oxygen level dropped to 74% while ambulating on room air. Home oxygen test results are applicable for 24 hours. Green Sheet placed on chart for home oxygen setup through [facility], as patient is not presumed to discharge today.
--- NOTE | 2017-12-04 15:06 | NURSING ---
Walked pt in halls this afternoon with oxygen. room air pulse ox before ambulation was 95%. 3L NC applied during ambulation and pulse ox dropped to 86% with the oxygen in place. pt very SOB with ambulation. Assisted back to bed and room air pulse ox was 94%.
--- NOTE | 2017-12-04 18:47 | PCM.PROGNOTE ---
Patient Problems: Active and Suspected Problems Acute respiratory failure with hypoxia (Acute) Subjective: She is feeling better, but still has shortness of breath with mild exertion. - Physical Exam General: Alert, Oriented x3, Cooperative HEENT: Atraumatic, PERRLA, Normocephalic Oral: Moist Mucosa, No Gingival or Mucosal Lesions/ Ulcerations Neck: Supple, No JVD Lungs: Rhonchi - Diffusely at mid to upper lung valenzuela bilaterally. Cardiovascular: Regular rate, Regular Rhythm, Normal S1, Normal S2, No murmurs, No Ectopic Activity Abdomen: Bowel Sounds Present, Soft, Non Tender, Non-Distended, No Hepato-splenomegaly, Obese Extremities: No clubbing, No cyanosis, No edema Skin: No rashes, No breakdown Musculoskeletal: No Tenderness to Palpation of Joints or Extremities Lymphatic: No Cervical, Supraclavicular, or Inguinal Adenopathy Neurological: Cranial nerves II-XII grossly intact, Neuro grossly intact Psych/Mental Status: Normal Affect, Appropriate - Physical Exam Vital Signs Temp Pulse Resp BP Pulse Ox 98.3 F 74 16 147/79 H 93 12/04/17 13:45 12/04/17 14:56 12/04/17 14:56 12/04/17 13:45 12/04/17 13:45 Oxygen Flow Rate (L/min) [ 4 AMBULATION with Oxygen] Oxygen Flow Rate (L/min) 1 Oxygen Delivery Method Room Air Weight: 256 lb 13.416 oz Body Mass Index (BMI) 41.4 Intake and Output for Last 24 Hours 12/02/17 12/03/17 12/04/17 23:59 23:59 23:59 Intake Total 1143 / 1143 1876 / 1876 1120 / 1120 Output Total 850 / 850 600 / 600 Balance 1143 / 1143 1026 / 1026 520 / 520 Microbiology Past 72 Hours 12/02/17 20:10 Respiratory Panel (PCR) - Final Mucosa - Nasopharyngeal Laboratory Tests Past 24 Hrs 12/04/17 12/04/17 12/04/17 07:28 07:28 07:28 [id number] Pending Rheumatoid Factor 56.0 H Cycl Citrul Peptide IgG Pending HARMEET Screen Pending c-ANCA Antibody Pending p-ANCA Antibody Pending YANELY-1 Antibody Pending SS-A/Ro IgG Antibody Pending SS-B/La IgG Antibody Pending Sm (Foster) Antibody Pending MANAGER OPERATIONS AND PROCUREMENT Antibody Pending Scl-70 Scleroderma Ab Pending Double Strand DNA Ab Pending Centromere B Antibody Pending Diagnostic Data Chest X-Ray 12/02/17 14:22 IMPRESSION: Degenerative changes, as described above. No demonstrated acute cardiopulmonary process. No significant interval change Electronically Signed: Delmer Barrett MD at 15:33 EDT , Service support , Chest CT 12/03/17 11:51 IMPRESSION: Stable emphysematous changes along with lower lobe fibrosis. There are coronary arterial calcifications. Stable mediastinal lymph nodes. Electronically Signed: Adonay Martinez MD at 16:19 EDT , Service support , Medical Necessity - Tobacco Use Smoking Status: Former smoker - 7.5-pack-year history Tobacco Use: Cigarettes Assessment/Plan Active and Suspected Problems Acute respiratory failure with hypoxia (Acute) Patient is an 82 years old female who was admitted on 12/02/17 for subacute hypoxic respiratory failure. She has history of COPD, had similar episode about one year ago. She had upper respiratory symptoms in September, having problems with dyspnea since then. She reports Oxygen saturation in 70's at home, 86% on arrival with room air, along with tachypnea. #1 Subacute hypoxic respiratory failure with underling COPD exacerbation. She is on Symbicort and albuterol MDI prn at home. She has no prior without for lung condition. She reports approximately 20 to 30 pack-year of smoking history, quit in 1989. CT is consistent with emphysematous change. PFT and polysomnogram as outpatient. Transition from Solu-Medrol to oral prednisone. Oxygen prn. She still has dyspnea on mild exertion. Bronchodilator: DuoNeb and albuterol prn. Pulmonary consultation appreciated. She will need walking oxygen measurement for home oxygen prior to discharge. #2 Essential hypertension. Blood pressure is stable. Use amlodipine for Plendil. #3 CKD III. Baseline creatinine 1.4. 1.67 on admission. Stable. #4 History of renal cell carcinoma s/p nephrectomy. #5 History of TIA. Continue aspirin. VTE prophylaxis: heparin SQ. GI prophylaxis: H2 bill po. She is full code. Disposition: home in 2 to 3 days. Code Visit Inpatient E&M: 03263 Subs Hosp L2
--- NOTE | 2017-12-04 18:51 | PN_ITS ---
Patient Problems: Active and Suspected Problems Acute respiratory failure with hypoxia (Acute) Subjective: She is feeling better, but still has shortness of breath with mild exertion. - Physical Exam General: Alert, Oriented x3, Cooperative HEENT: Atraumatic, PERRLA, Normocephalic Oral: Moist Mucosa, No Gingival or Mucosal Lesions/ Ulcerations Neck: Supple, No JVD Lungs: Rhonchi - Diffusely at mid to upper lung valenzuela bilaterally. Cardiovascular: Regular rate, Regular Rhythm, Normal S1, Normal S2, No murmurs, No Ectopic Activity Abdomen: Bowel Sounds Present, Soft, Non Tender, Non-Distended, No Hepato- splenomegaly, Obese Extremities: No clubbing, No cyanosis, No edema Skin: No rashes, No breakdown Musculoskeletal: No Tenderness to Palpation of Joints or Extremities Lymphatic: No Cervical, Supraclavicular, or Inguinal Adenopathy Neurological: Cranial nerves II-XII grossly intact, Neuro grossly intact Psych/Mental Status: Normal Affect, Appropriate - Physical Exam Vital Signs Temp Pulse Resp BP Pulse Ox 98.3 F 74 16 147/79 H 93 12/04/17 13:45 12/04/17 14:56 12/04/17 14:56 12/04/17 13:45 12/04/17 13:45 Oxygen Flow Rate (L/min) [ 4 AMBULATION with Oxygen] Oxygen Flow Rate (L/min) 1 Oxygen Delivery Method Room Air Weight: 256 lb 13.416 oz Body Mass Index (BMI) 41.4 Intake and Output for Last 24 Hours 12/02/17 12/03/17 12/04/17 23:59 23:59 23:59 Intake Total 1143 / 1143 1876 / 1876 1120 / 1120 Output Total 850 / 850 600 / 600 Balance 1143 / 1143 1026 / 1026 520 / 520 Microbiology Past 72 Hours 12/02/17 20:10 Respiratory Panel (PCR) - Final Mucosa - Nasopharyngeal Laboratory Tests Past 24 Hrs 12/04/17 12/04/17 12/04/17 07:28 07:28 07:28 [id number] Pending Rheumatoid Factor 56.0 H Cycl Citrul Peptide IgG Pending HARMEET Screen Pending c-ANCA Antibody Pending p-ANCA Antibody Pending YANELY-1 Antibody Pending SS-A/Ro IgG Antibody Pending SS-B/La IgG Antibody Pending Sm (Foster) Antibody Pending SYSTEMS SOFTWARE DEVELOPER Antibody Pending Scl-70 Scleroderma Ab Pending Double Strand DNA Ab Pending Centromere B Antibody Pending Diagnostic Data Chest X-Ray 12/02/17 14:22 IMPRESSION: Degenerative changes, as described above. No demonstrated acute cardiopulmonary process. No significant interval change Electronically Signed: Delmer Barrett MD at 15:33 EDT , Service support , Chest CT 12/03/17 11:51 IMPRESSION: Stable emphysematous changes along with lower lobe fibrosis. There are coronary arterial calcifications. Stable mediastinal lymph nodes. Electronically Signed: Adonay Martinez MD at 16:19 EDT , Service support , Medical Necessity - Tobacco Use Smoking Status: Former smoker - 7.5-pack-year history Tobacco Use: Cigarettes Assessment/Plan Active and Suspected Problems Acute respiratory failure with hypoxia (Acute) Patient is an 82 years old female who was admitted on 12/02/17 for subacute hypoxic respiratory failure. She has history of COPD, had similar episode about one year ago. She had upper respiratory symptoms in September, having problems with dyspnea since then. She reports Oxygen saturation in 70's at home, 86% on arrival with room air, along with tachypnea. #1 Subacute hypoxic respiratory failure with underling COPD exacerbation. She is on Symbicort and albuterol MDI prn at home. She has no prior without for lung condition. She reports approximately 20 to 30 pack-year of smoking history, quit in 1989. CT is consistent with emphysematous change. PFT and polysomnogram as outpatient. Transition from Solu-Medrol to oral prednisone. Oxygen prn. She still has dyspnea on mild exertion. Bronchodilator: DuoNeb and albuterol prn. Pulmonary consultation appreciated. She will need walking oxygen measurement for home oxygen prior to discharge. #2 Essential hypertension. Blood pressure is stable. Use amlodipine for Plendil. #3 CKD III. Baseline creatinine 1.4. 1.67 on admission. Stable. #4 History of renal cell carcinoma s/p nephrectomy. #5 History of TIA. Continue aspirin. VTE prophylaxis: heparin SQ. GI prophylaxis: H2 bill po. She is full code. Disposition: home in 2 to 3 days. Code Visit Inpatient E&M: 34997 Subs Hosp L2
[2017-12-04] MEDS: MELATONIN 3 MG TABLET PO (21:03)
[2017-12-04] MEDS: Acetaminophen 325 MG Tablet 650 MG PO (21:05)
[2017-12-05] VITALS (8 sets, daily range): BP systolic 145–175; BP diastolic 69–92; PULSE 97–112; RESP 18–24; TEMP 36.4–37.1; O2SAT 94–95
[2017-12-05] MEDS: Albuterol 2.5 MG/3 ML VIAL.NEB. INHALATION (02:48)
[2017-12-05] MEDS: 0.9% NaCl Peripheral Flush Adult/Peds IV ×2 (05:50→07:53)
[2017-12-05] MEDS: Ipratropium/Albuterol Sulfate 3 ML AMPUL.NEB INHALATION ×5 (07:02→22:31)
--- NOTE | 2017-12-05 07:24 | PCM.PROGNOTE ---
Patient Problems: Active and Suspected Problems Acute respiratory failure with hypoxia (Acute) Subjective: The patient was seen and examined at the bedside this morning. Events from the last 24 hours have been reviewed. The patient is currently afebrile, hemodynamically stable and maintaining appropriate oxygen saturations on room air. The patient did desaturate yesterday while ambulating in the hallway on room air to 79%. It appears that she required 4 L/min of supplemental oxygen to maintain appropriate exertional oxygen saturations. The patient is overall net +2.7 L for the admission. She does report feeling intermittently wheezy, for which she requests breathing treatments. She does report symptom improvement with aerosol treatments. She confirms the presence of ongoing exertional dyspnea. Objective: The patient's most recent lab work, culture data and imaging studies have all been personally reviewed. Respiratory viral panel was negative. Noncontrasted chest CT completed December 03 showed evidence of diffuse bilateral emphysematous changes with subpleural bleb formation and basilar fibrotic changes. Surface echocardiogram did reveal evidence of stage I diastolic dysfunction and pulmonary hypertension with a pulmonary artery systolic pressure estimated to be 59 mmHg. - Physical Exam General: Alert, Cooperative, No apparent distress, - - Morbidly obese HEENT: Atraumatic, PERRLA, Normocephalic Oral: Moist Mucosa, No Gingival or Mucosal Lesions/ Ulcerations Neck: Supple, No Nodes, Trachea Midline, - - Large neck circumference Lungs: Diminished, - - Clear across anterior lung valenzuela. No wheezes, rales or rhonchi present. Cardiovascular: Regular rate, Regular Rhythm, Normal S1, Normal S2, No murmurs Abdomen: Bowel Sounds Present, Soft, Non Tender, Non-Distended, Obese Extremities: No clubbing, No cyanosis, No edema Skin: No rashes, No breakdown Musculoskeletal: No Muscle Wasting Lymphatic: No Cervical, Supraclavicular, or Inguinal Adenopathy Neurological: Neuro grossly intact Psych/Mental Status: Alert and oriented to time, place, person, mood and affect Vital Signs Temp Pulse Resp BP Pulse Ox 98.0 F 102 H 20 H 145/69 H 95 12/05/17 01:50 12/05/17 02:49 12/05/17 02:49 12/05/17 01:50 12/05/17 01:50 Oxygen Flow Rate (L/min) [ 4 AMBULATION with Oxygen] Oxygen Flow Rate (L/min) 1 Oxygen Delivery Method Room Air Weight: 256 lb 13.416 oz Body Mass Index (BMI) 41.4 Intake and Output for Last 24 Hours 12/03/17 12/04/17 12/05/17 23:59 23:59 23:59 Intake Total 1876 / 1876 1620 / 1620 700 / 700 Output Total 850 / 850 900 / 900 800 / 800 Balance 1026 / 1026 720 / 720 -100 / -100 Microbiology Past 72 Hours 12/02/17 20:10 Respiratory Panel (PCR) - Final Mucosa - Nasopharyngeal Laboratory Tests Past 24 Hrs 12/04/17 12/04/17 12/04/17 07:28 07:28 07:28 [id number] Pending Rheumatoid Factor 56.0 H Cycl Citrul Peptide IgG Pending HARMEET Screen Pending c-ANCA Antibody Pending p-ANCA Antibody Pending YANELY-1 Antibody Pending SS-A/Ro IgG Antibody Pending SS-B/La IgG Antibody Pending Sm (Foster) Antibody Pending COMM[employer]ITY ENGAGEMENT COORDINATOR Antibody Pending Scl-70 Scleroderma Ab Pending Double Strand DNA Ab Pending Centromere B Antibody Pending Clinical Impression(s) from Imaging Studies Chest X-Ray 12/02/17 14:22 IMPRESSION: Degenerative changes, as described above. No demonstrated acute cardiopulmonary process. No significant interval change Electronically Signed: Delmer Barrett MD at 15:33 EDT , Service support , Chest CT 12/03/17 11:51 IMPRESSION: Stable emphysematous changes along with lower lobe fibrosis. There are coronary arterial calcifications. Stable mediastinal lymph nodes. Electronically Signed: Adonay Martinez MD at 16:19 EDT , Service support , Medical Necessity - Tobacco Use Smoking Status: Former smoker - 7.5-pack-year history Tobacco Use: Cigarettes Assessment/Plan Active and Suspected Problems Acute respiratory failure with hypoxia (Acute) RECOMMENDATIONS: 1. Perform walking oximetry study prior to consideration for discharge from the hospital. Anticipate home-going oxygen need. 2. Outpatient PFTs and polysomnogram are recommended. 3. Autoimmune/vasculitis profile along with alpha-1 antitrypsin level are pending. 4. Continue aerosol treatments as ordered. IV steroids have been transitioned to prednisone 40 mg daily by mouth. Recommend completing a 5 day burst. 5. Administer additional IV diuretics as ordered 6. Obtain repeat plain film chest x-ray this morning 7. Please ensure that the patient has follow-up scheduled in the pulmonary medicine clinic within 2 weeks of her discharge from the hospital. IMPRESSIONS: 1. Acute hypoxemic respiratory insufficiency The patient reports no previous supplemental oxygen requirement. Her complaints of dyspnea along with newly discovered hypoxia is likely multifactorial in etiology. She has baseline underlying fibrotic changes in her lungs along with emphysematous changes bilaterally. While she has a relatively limited smoking history herself, she does admit to significant secondhand smoke exposure. The patient undoubtedly needs to be seen in the pulmonary medicine clinic within 2 weeks of her discharge. She needs to complete baseline pulmonary function testing with subsequent optimization of her inhaler regimen. In addition to the aforementioned, the patient has evidence of diastolic dysfunction and pulmonary hypertension, all of which are likely contributing to her symptoms also. Would plan to continue current diuretic regimen and attempt to maintain euvolemic. Perform walking oximetry study and obtain supplemental oxygen prior to discharge. Secondary pulmonary hypertension workup will also be started. The patient would likely benefit from an outpatient polysomnogram. Would plan to continue current scheduled aerosol treatments. Transition from IV steroids to prednisone and complete a 5 day treatment course. 2. Radiographic evidence of fibrotic changes and emphysema The changes noted on CT seem out of proportion to her self-reported limited smoking history. However, she does admit to significant secondhand smoke exposure. Nevertheless, the patient needs to have outpatient PFTs completed to confirm a diagnosis of COPD and grade its severity. She can continue to utilize Symbicort upon discharge from the hospital. Upon follow-up in the pulmonary medicine clinic and after completion of PFTs, her inhaler regimen can be further optimized. Will check alpha-1 antitrypsin level. 3. Heart failure with preserved ejection fraction/pulmonary hypertension Continue current diuretic regimen. Autoimmune/vasculitis workup is pending. The patient may benefit from an outpatient polysomnogram. 4. Morbid obesity/hypertension/chronic kidney disease Complicates care, management, recovery and prognosis. Continue home medications as indicated. Encourage incentive spirometer use and mobilize patient as tolerated. This note was generated with [employer] software. It may contain incorrect words, spelling, and punctuation that were not noted in checking the note before signing. Code Visit Inpatient E&M: 21809 Subs Hosp L2
--- NOTE | 2017-12-05 07:28 | RAD_ITS ---
STUDY: X-RAY CHEST REASON FOR EXAM: Female, 82 years old. Shortness of breath. TECHNIQUE: Single AP portable view of the chest. COMPARISON: 12/02/2017. FINDINGS: There again are prominent markings bilaterally unchanged prior examination probably chronic. No new infiltrate is seen. There is no demonstrated pleural abnormality. Normal size heart. Normal mediastinum and awilda. Normal visualized pulmonary arteries. There is atherosclerotic calcification of the aortic arch with tortuosity. There are diffuse degenerative changes of the visualized thoracic spine. There is degenerative osteoarthritis of the bilateral shoulders. Surgical pin is again seen overlying the right femoral head. There is no demonstrated abnormality of the visualized soft tissue structures of the upper abdomen. RAD/Chest 1 View (Portable) IMPRESSION: No significant change. No new infiltrate is seen. Electronically Signed: Mazin Jiménez MD at 8:51 EDT Tel , Service support ,
--- NOTE | 2017-12-05 07:29 | PN_ITS ---
Patient Problems: Active and Suspected Problems Acute respiratory failure with hypoxia (Acute) Subjective: The patient was seen and examined at the bedside this morning. Events from the last 24 hours have been reviewed. The patient is currently afebrile, hemodynamically stable and maintaining appropriate oxygen saturations on room air. The patient did desaturate yesterday while ambulating in the hallway on room air to 79%. It appears that she required 4 L/min of supplemental oxygen to maintain appropriate exertional oxygen saturations. The patient is overall net +2.7 L for the admission. She does report feeling intermittently wheezy, for which she requests breathing treatments. She does report symptom improvement with aerosol treatments. She confirms the presence of ongoing exertional dyspnea. Objective: The patient's most recent lab work, culture data and imaging studies have all been personally reviewed. Respiratory viral panel was negative. Noncontrasted chest CT completed December 03 showed evidence of diffuse bilateral emphysematous changes with subpleural bleb formation and basilar fibrotic changes. Surface echocardiogram did reveal evidence of stage I diastolic dysfunction and pulmonary hypertension with a pulmonary artery systolic pressure estimated to be 59 mmHg. - Physical Exam General: Alert, Cooperative, No apparent distress, - - Morbidly obese HEENT: Atraumatic, PERRLA, Normocephalic Oral: Moist Mucosa, No Gingival or Mucosal Lesions/ Ulcerations Neck: Supple, No Nodes, Trachea Midline, - - Large neck circumference Lungs: Diminished, - - Clear across anterior lung valenzuela. No wheezes, rales or rhonchi present. Cardiovascular: Regular rate, Regular Rhythm, Normal S1, Normal S2, No murmurs Abdomen: Bowel Sounds Present, Soft, Non Tender, Non-Distended, Obese Extremities: No clubbing, No cyanosis, No edema Skin: No rashes, No breakdown Musculoskeletal: No Muscle Wasting Lymphatic: No Cervical, Supraclavicular, or Inguinal Adenopathy Neurological: Neuro grossly intact Psych/Mental Status: Alert and oriented to time, place, person, mood and affect Vital Signs Temp Pulse Resp BP Pulse Ox 98.0 F 102 H 20 H 145/69 H 95 12/05/17 01:50 12/05/17 02:49 12/05/17 02:49 12/05/17 01:50 12/05/17 01:50 Oxygen Flow Rate (L/min) [ 4 AMBULATION with Oxygen] Oxygen Flow Rate (L/min) 1 Oxygen Delivery Method Room Air Weight: 256 lb 13.416 oz Body Mass Index (BMI) 41.4 Intake and Output for Last 24 Hours 12/03/17 12/04/17 12/05/17 23:59 23:59 23:59 Intake Total 1876 / 1876 1620 / 1620 700 / 700 Output Total 850 / 850 900 / 900 800 / 800 Balance 1026 / 1026 720 / 720 -100 / -100 Microbiology Past 72 Hours 12/02/17 20:10 Respiratory Panel (PCR) - Final Mucosa - Nasopharyngeal Laboratory Tests Past 24 Hrs 12/04/17 12/04/17 12/04/17 07:28 07:28 07:28 Pffzr-1-Mkoqntssxzi Pending Rheumatoid Factor 56.0 H Cycl Citrul Peptide IgG Pending HARMEET Screen Pending c-ANCA Antibody Pending p-ANCA Antibody Pending YANELY-1 Antibody Pending SS-A/Ro IgG Antibody Pending SS-B/La IgG Antibody Pending Sm (Foster) Antibody Pending STEVEDORE HOLD Antibody Pending Scl-70 Scleroderma Ab Pending Double Strand DNA Ab Pending Centromere B Antibody Pending Clinical Impression(s) from Imaging Studies Chest X-Ray 12/02/17 14:22 IMPRESSION: Degenerative changes, as described above. No demonstrated acute cardiopulmonary process. No significant interval change Electronically Signed: Delmer Barrett MD at 15:33 EDT , Service support , Chest CT 12/03/17 11:51 IMPRESSION: Stable emphysematous changes along with lower lobe fibrosis. There are coronary arterial calcifications. Stable mediastinal lymph nodes. Electronically Signed: Adonay Martinez MD at 16:19 EDT , Service support , Medical Necessity - Tobacco Use Smoking Status: Former smoker - 7.5-pack-year history Tobacco Use: Cigarettes Assessment/Plan Active and Suspected Problems Acute respiratory failure with hypoxia (Acute) RECOMMENDATIONS: 1. Perform walking oximetry study prior to consideration for discharge from the hospital. Anticipate home-going oxygen need. 2. Outpatient PFTs and polysomnogram are recommended. 3. Autoimmune/vasculitis profile along with alpha-1 antitrypsin level are pending. 4. Continue aerosol treatments as ordered. IV steroids have been transitioned to prednisone 40 mg daily by mouth. Recommend completing a 5 day burst. 5. Administer additional IV diuretics as ordered 6. Obtain repeat plain film chest x-ray this morning 7. Please ensure that the patient has follow-up scheduled in the pulmonary medicine clinic within 2 weeks of her discharge from the hospital. IMPRESSIONS: 1. Acute hypoxemic respiratory insufficiency The patient reports no previous supplemental oxygen requirement. Her complaints of dyspnea along with newly discovered hypoxia is likely multifactorial in etiology. She has baseline underlying fibrotic changes in her lungs along with emphysematous changes bilaterally. While she has a relatively limited smoking history herself, she does admit to significant secondhand smoke exposure. The patient undoubtedly needs to be seen in the pulmonary medicine clinic within 2 weeks of her discharge. She needs to complete baseline pulmonary function testing with subsequent optimization of her inhaler regimen. In addition to the aforementioned, the patient has evidence of diastolic dysfunction and pulmonary hypertension, all of which are likely contributing to her symptoms also. Would plan to continue current diuretic regimen and attempt to maintain euvolemic. Perform walking oximetry study and obtain supplemental oxygen prior to discharge. Secondary pulmonary hypertension workup will also be started. The patient would likely benefit from an outpatient polysomnogram. Would plan to continue current scheduled aerosol treatments. Transition from IV steroids to prednisone and complete a 5 day treatment course. 2. Radiographic evidence of fibrotic changes and emphysema The changes noted on CT seem out of proportion to her self-reported limited smoking history. However, she does admit to significant secondhand smoke exposure. Nevertheless, the patient needs to have outpatient PFTs completed to confirm a diagnosis of COPD and grade its severity. She can continue to utilize Symbicort upon discharge from the hospital. Upon follow-up in the pulmonary medicine clinic and after completion of PFTs, her inhaler regimen can be further optimized. Will check alpha-1 antitrypsin level. 3. Heart failure with preserved ejection fraction/pulmonary hypertension Continue current diuretic regimen. Autoimmune/vasculitis workup is pending. The patient may benefit from an outpatient polysomnogram. 4. Morbid obesity/hypertension/chronic kidney disease Complicates care, management, recovery and prognosis. Continue home medications as indicated. Encourage incentive spirometer use and mobilize patient as tolerated. This note was generated with [employer] software. It may contain incorrect words, spelling, and punctuation that were not noted in checking the note before signing. Code Visit Inpatient E&M: 52530 Subs Hosp L2
[2017-12-05] MEDS: Furosemide 40 MG/4 ML Vial IV (07:53)
[2017-12-05] MEDS: Aspirin 325 MG Tablet PO (07:53)
[2017-12-05] MEDS: amLODIPine 10 MG Tablet PO (07:54)
[2017-12-05] MEDS: Docusate Sodium 100 MG Capsule PO (07:54)
[2017-12-05] MEDS: Famotidine 20 MG Tablet PO (07:54)
[2017-12-05] MEDS: hydroCHLOROthiazide 25 MG Tablet PO (07:55)
[2017-12-05] MEDS: guaiFENesin 1,200 MG Tablet 1200 MG PO ×2 (07:56→21:46)
--- NOTE | 2017-12-05 08:33 | PCM.PROGNOTE ---
Patient Problems: Active and Suspected Problems Acute respiratory failure with hypoxia (Acute) Subjective: Chief complaint: Follow-up of admission for acute respiratory failure secondary to COPD exacerbation as well as pulmonary hypertension and probable lung fibrosis. Patient seen and examined. No acute events overnight. This morning, she mentioned that her breathing is better. She did mention that she feels better on was after breathing treatment for couple of hours and then her breathing started to worsen. She complains of cough with minimal sputum production. Denies fever chills. She is afebrile, blood pressure noted are stable and pulse ox is 94% on room air. - Physical Exam General: Alert, Oriented x3, Cooperative, - - Minimal shortness of breath. HEENT: Atraumatic, PERRLA, EOMI Oral: Moist Mucosa, No Gingival or Mucosal Lesions/ Ulcerations Neck: Supple, No JVD, Negative Carotid Bruits, Trachea Midline, Thyroid Normal Size and Texture Lungs: No rales, Diminished, Rhonchi, Short of Breath, - - Decreased breath sounds bilateral, bilateral and expiratory wheezes. Cardiovascular: Regular rate, Regular Rhythm, Normal S1, Normal S2, No murmurs, PMI Normal Abdomen: Bowel Sounds Present, Soft, Non Tender, Non-Distended, No Hepato-splenomegaly, Obese Extremities: No clubbing, No cyanosis, No edema Skin: No rashes, No breakdown Lymphatic: No Cervical, Supraclavicular, or Inguinal Adenopathy Neurological: Cranial nerves II-XII grossly intact, Neuro grossly intact Psych/Mental Status: Normal Affect, Appropriate, Alert and oriented to time, place, person, mood and affect Vital Signs Temp Pulse Resp BP Pulse Ox 97.6 F L 107 H 20 H 152/92 H 94 12/05/17 07:50 12/05/17 07:50 12/05/17 07:50 12/05/17 07:50 12/05/17 07:50 Oxygen Flow Rate (L/min) [ 4 AMBULATION with Oxygen] Oxygen Flow Rate (L/min) 1 Oxygen Delivery Method Room Air Weight: 256 lb 13.416 oz Body Mass Index (BMI) 41.4 Intake and Output for Last 24 Hours 12/03/17 12/04/17 12/05/17 23:59 23:59 23:59 Intake Total 1876 / 1876 1620 / 1620 700 / 700 Output Total 850 / 850 900 / 900 800 / 800 Balance 1026 / 1026 720 / 720 -100 / -100 Microbiology Past 72 Hours 12/02/17 20:10 Respiratory Panel (PCR) - Final Mucosa - Nasopharyngeal Clinical Impression(s) from Imaging Studies Chest X-Ray 12/02/17 14:22 IMPRESSION: Degenerative changes, as described above. No demonstrated acute cardiopulmonary process. No significant interval change Electronically Signed: Delmer Barrett MD at 15:33 EDT , Service support , Chest CT 12/03/17 11:51 IMPRESSION: Stable emphysematous changes along with lower lobe fibrosis. There are coronary arterial calcifications. Stable mediastinal lymph nodes. Electronically Signed: Adonay Martinez MD at 16:19 EDT , Service support , Medical Necessity - Tobacco Use Smoking Status: Former smoker - 7.5-pack-year history Tobacco Use: Cigarettes Assessment/Plan Active and Suspected Problems Acute respiratory failure with hypoxia (Acute) This is an 82 years old female patient admitted because of shortness of breath, cough, wheezing and she was found to have acute hypoxic respiratory failure attributed to acute exacerbation of suspected COPD and she was found to have findings on chest x-ray consistent with possible lung fibrosis. #1 acute hypoxic respiratory failure: Attributed to acute exacerbation of COPD as well as probable lung fibrosis. Chest x-ray reviewed, revealed changes consistent with COPD, no new infiltrates seen. She is on bronchodilators and started on oral prednisone today. She was on IV steroids. Respiratory panel for viruses were negative. Sputum cultures pending. She has been afebrile, pulse ox remained normal on room air. She does have significant wheezing and her pulse ox drops upon ambulation. She received 1 dose of IV Lasix this morning. 2D echocardiogram revealed ejection fraction of 60% and moderate pulmonary hypertension. Pulmonary and the case. Plan: Continue bronchodilators, oral prednisone, wean down oxygen as tolerated. #2 acute exacerbation of suspected COPD/probable lung fibrosis: Patient is a big time smoker but never diagnosed with COPD officially. Chest x-ray revealed findings consistent with COPD and probable lung fibrosis. Plan as above to continue on bronchodilators, steroids and oxygen. Probably, she will need to go home on oxygen, plan as above. #3 hypertension: Blood pressure stable, continue Norvasc, HCTZ, metoprolol and IV hydralazine as needed. #4 stage III chronic kidney disease: Baseline kidney function has been around 1.3-1.6 mg/dL. Most recent creatinine from data from yesterday was 1.47, stable at baseline. #5 history of renal cell carcinoma: Status post nephrectomy, kidney function stable. #6 history of TIA: Continue aspirin. #7 DVT prophylaxis: Subcu heparin. This note was generated with [employer] dictation software. It may contain incorrect words, spelling, and punctuation that were not noted in checking the note before signing. Code Visit Inpatient E&M: 84760 Subs Hosp L2
--- NOTE | 2017-12-05 08:37 | PN_ITS ---
Patient Problems: Active and Suspected Problems Acute respiratory failure with hypoxia (Acute) Subjective: Chief complaint: Follow-up of admission for acute respiratory failure secondary to COPD exacerbation as well as pulmonary hypertension and probable lung fibrosis. Patient seen and examined. No acute events overnight. This morning, she mentioned that her breathing is better. She did mention that she feels better on was after breathing treatment for couple of hours and then her breathing started to worsen. She complains of cough with minimal sputum production. Denies fever chills. She is afebrile, blood pressure noted are stable and pulse ox is 94% on room air. - Physical Exam General: Alert, Oriented x3, Cooperative, - - Minimal shortness of breath. HEENT: Atraumatic, PERRLA, EOMI Oral: Moist Mucosa, No Gingival or Mucosal Lesions/ Ulcerations Neck: Supple, No JVD, Negative Carotid Bruits, Trachea Midline, Thyroid Normal Size and Texture Lungs: No rales, Diminished, Rhonchi, Short of Breath, - - Decreased breath sounds bilateral, bilateral and expiratory wheezes. Cardiovascular: Regular rate, Regular Rhythm, Normal S1, Normal S2, No murmurs, PMI Normal Abdomen: Bowel Sounds Present, Soft, Non Tender, Non-Distended, No Hepato- splenomegaly, Obese Extremities: No clubbing, No cyanosis, No edema Skin: No rashes, No breakdown Lymphatic: No Cervical, Supraclavicular, or Inguinal Adenopathy Neurological: Cranial nerves II-XII grossly intact, Neuro grossly intact Psych/Mental Status: Normal Affect, Appropriate, Alert and oriented to time, place, person, mood and affect Vital Signs Temp Pulse Resp BP Pulse Ox 97.6 F L 107 H 20 H 152/92 H 94 12/05/17 07:50 12/05/17 07:50 12/05/17 07:50 12/05/17 07:50 12/05/17 07:50 Oxygen Flow Rate (L/min) [ 4 AMBULATION with Oxygen] Oxygen Flow Rate (L/min) 1 Oxygen Delivery Method Room Air Weight: 256 lb 13.416 oz Body Mass Index (BMI) 41.4 Intake and Output for Last 24 Hours 12/03/17 12/04/17 12/05/17 23:59 23:59 23:59 Intake Total 1876 / 1876 1620 / 1620 700 / 700 Output Total 850 / 850 900 / 900 800 / 800 Balance 1026 / 1026 720 / 720 -100 / -100 Microbiology Past 72 Hours 12/02/17 20:10 Respiratory Panel (PCR) - Final Mucosa - Nasopharyngeal Clinical Impression(s) from Imaging Studies Chest X-Ray 12/02/17 14:22 IMPRESSION: Degenerative changes, as described above. No demonstrated acute cardiopulmonary process. No significant interval change Electronically Signed: Delmer Barrett MD at 15:33 EDT , Service support , Chest CT 12/03/17 11:51 IMPRESSION: Stable emphysematous changes along with lower lobe fibrosis. There are coronary arterial calcifications. Stable mediastinal lymph nodes. Electronically Signed: Adonay Martinez MD at 16:19 EDT , Service support , Medical Necessity - Tobacco Use Smoking Status: Former smoker - 7.5-pack-year history Tobacco Use: Cigarettes Assessment/Plan Active and Suspected Problems Acute respiratory failure with hypoxia (Acute) This is an 82 years old female patient admitted because of shortness of breath, cough, wheezing and she was found to have acute hypoxic respiratory failure attributed to acute exacerbation of suspected COPD and she was found to have findings on chest x-ray consistent with possible lung fibrosis. #1 acute hypoxic respiratory failure: Attributed to acute exacerbation of COPD as well as probable lung fibrosis. Chest x-ray reviewed, revealed changes consistent with COPD, no new infiltrates seen. She is on bronchodilators and started on oral prednisone today. She was on IV steroids. Respiratory panel for viruses were negative. Sputum cultures pending. She has been afebrile, pulse ox remained normal on room air. She does have significant wheezing and her pulse ox drops upon ambulation. She received 1 dose of IV Lasix this morning. 2D echocardiogram revealed ejection fraction of 60% and moderate pulmonary hypertension. Pulmonary and the case. Plan: Continue bronchodilators , oral prednisone, wean down oxygen as tolerated. #2 acute exacerbation of suspected COPD/probable lung fibrosis: Patient is a big time smoker but never diagnosed with COPD officially. Chest x-ray revealed findings consistent with COPD and probable lung fibrosis. Plan as above to continue on bronchodilators, steroids and oxygen. Probably, she will need to go home on oxygen, plan as above. #3 hypertension: Blood pressure stable, continue Norvasc, HCTZ, metoprolol and IV hydralazine as needed. #4 stage III chronic kidney disease: Baseline kidney function has been around 1.3-1.6 mg/dL. Most recent creatinine from data from yesterday was 1.47, stable at baseline. #5 history of renal cell carcinoma: Status post nephrectomy, kidney function stable. #6 history of TIA: Continue aspirin. #7 DVT prophylaxis: Subcu heparin. This note was generated with [employer] dictation software. It may contain incorrect words, spelling, and punctuation that were not noted in checking the note before signing. Code Visit Inpatient E&M: 74450 Subs Hosp L2
[2017-12-05] MEDS: predniSONE 20 MG Tablet 40 MG PO (08:58)
--- NOTE | 2017-12-05 11:42 | CPS ---
Pt went to bathroom before breathing tx. Placed pulse ox on pt and spO2 83%. Pt refused to put on oxygen.
[2017-12-05] MEDS: Acetaminophen 325 MG Tablet 650 MG PO (21:46)
[2017-12-05] MEDS: MELATONIN 3 MG TABLET PO (21:46)
[2017-12-06] VITALS (9 sets, daily range): BP systolic 157–164; BP diastolic 67–98; PULSE 95–112; RESP 20–24; TEMP 36.8–37.1; O2SAT 87–95
[2017-12-06] MEDS: Ipratropium/Albuterol Sulfate 3 ML AMPUL.NEB INHALATION ×2 (02:53→10:49)
--- NOTE | 2017-12-06 06:54 | PN_ITS ---
Patient Problems: Active and Suspected Problems Acute respiratory failure with hypoxia (Acute) Subjective: The patient was seen and examined at the bedside this morning. Events from the last 24 hours have been reviewed. The patient is currently afebrile, hemodynamically stable and maintaining appropriate oxygen saturations on room air at rest. The patient does experience exertional dyspnea and hypoxia. Upon conversation with respiratory therapy this morning, I was notified that the patient is refusing to wear her supplemental oxygen with exertion and will desaturate into the high 70s accordingly. She states that she is not going to wear her oxygen until we figure out what is going on, despite me having a long conversation with her yesterday regarding the etiology for her shortness of breath and hypoxia. The patient is overall net +400 mL's for the admission. The patient's plain film chest x-ray obtained yesterday was personally reviewed and showed no significant interval change. Objective: The patient's most recent lab work, culture data and imaging studies have all been personally reviewed. Respiratory viral panel was negative. Noncontrasted chest CT completed December 03 showed evidence of diffuse bilateral emphysematous changes with subpleural bleb formation and basilar fibrotic changes. Surface echocardiogram did reveal evidence of stage I diastolic dysfunction and pulmonary hypertension with a pulmonary artery systolic pressure estimated to be 59 mmHg. - Physical Exam General: Alert, Oriented x3, Cooperative, No apparent distress, - - Morbidly obese. Resting comfortably in bed. HEENT: Atraumatic, PERRLA, Normocephalic Oral: No Gingival or Mucosal Lesions/ Ulcerations Neck: Supple, No Nodes, Trachea Midline Lungs: No rhonchi, No wheeze, No rales, Diminished Cardiovascular: Regular rate, Regular Rhythm, Normal S1, Normal S2, No murmurs Abdomen: Bowel Sounds Present, Soft, Non Tender, Non-Distended, Obese Extremities: No clubbing, No cyanosis, No edema Skin: No rashes, No breakdown Musculoskeletal: No Tenderness to Palpation of Joints or Extremities Lymphatic: No Cervical, Supraclavicular, or Inguinal Adenopathy Neurological: Neuro grossly intact Psych/Mental Status: Alert and oriented to time, place, person, mood and affect Vital Signs Temp Pulse Resp BP Pulse Ox 98.2 F 95 24 H 157/67 H 95 12/06/17 02:34 12/06/17 02:53 12/06/17 02:53 12/06/17 02:34 12/06/17 02:34 Oxygen Flow Rate (L/min) [ 4 AMBULATION with Oxygen] Oxygen Flow Rate (L/min) 1 Oxygen Delivery Method Room Air Weight: 256 lb 13.416 oz Body Mass Index (BMI) 41.4 Intake and Output for Last 24 Hours 12/04/17 12/05/17 12/06/17 23:59 23:59 23:59 Intake Total 1620 / 1620 1490 / 1490 500 / 500 Output Total 900 / 900 3225 / 3225 1250 / 1250 Balance 720 / 720 -1735 / -1735 -750 / -750 Microbiology Past 72 Hours 12/05/17 06:00 Gram Stain - Final Sputum, Expectorated/Coughed 12/02/17 20:10 Respiratory Panel (PCR) - Final Mucosa - Nasopharyngeal Labs (Last 48 Hours) 12/04/17 12/04/17 12/04/17 07:28 07:28 07:28 [id number] Pending Rheumatoid Factor 56.0 H Cycl Citrul Peptide IgG Pending HARMEET Screen Pending c-ANCA Antibody Pending p-ANCA Antibody Pending YANELY-1 Antibody Pending SS-A/Ro IgG Antibody Pending SS-B/La IgG Antibody Pending Sm (Foster) Antibody Pending SR. [employer] Antibody Pending Scl-70 Scleroderma Ab Pending Double Strand DNA Ab Pending Centromere B Antibody Pending Microbiology 12/05/17 06:00 Sputum, Expectorated/Coughed Gram Stain - Final Clinical Impression(s) from Imaging Studies Chest X-Ray 12/02/17 14:22 IMPRESSION: Degenerative changes, as described above. No demonstrated acute cardiopulmonary process. No significant interval change Electronically Signed: Delmer Barrett MD at 15:33 EDT , Service support , Chest CT 12/03/17 11:51 IMPRESSION: Stable emphysematous changes along with lower lobe fibrosis. There are coronary arterial calcifications. Stable mediastinal lymph nodes. Electronically Signed: Adonay Martinez MD at 16:19 EDT , Service support , Chest X-Ray 12/05/17 07:28 IMPRESSION: No significant change. No new infiltrate is seen. Electronically Signed: Mazin Jiménez MD at 8:51 EDT Tel , Service support , Medical Necessity - Tobacco Use Smoking Status: Former smoker - 7.5-pack-year history Tobacco Use: Cigarettes Assessment/Plan Active and Suspected Problems Acute respiratory failure with hypoxia (Acute) RECOMMENDATIONS: 1. Perform walking oximetry study prior to consideration for discharge from the hospital. Anticipate home-going oxygen need. 2. Outpatient PFTs and polysomnogram are recommended. 3. Autoimmune/vasculitis profile along with alpha-1 antitrypsin level are pending. 4. Continue aerosol treatments as ordered. Continue prednisone 40 mg daily by mouth. Recommend completing a 5 day burst. 5. Please ensure that the patient has follow-up scheduled in the pulmonary medicine clinic within 2 weeks of her discharge from the hospital. IMPRESSIONS: 1. Acute hypoxemic respiratory insufficiency The patient reports no previous supplemental oxygen requirement. Her complaints of dyspnea along with newly discovered hypoxia is likely multifactorial in etiology. She has baseline underlying fibrotic changes in her lungs along with emphysematous changes bilaterally. While she has a relatively limited smoking history herself, she does admit to significant secondhand smoke exposure. The patient undoubtedly needs to be seen in the pulmonary medicine clinic within 2 weeks of her discharge. She needs to complete baseline pulmonary function testing with subsequent optimization of her inhaler regimen. In addition to the aforementioned, the patient has evidence of diastolic dysfunction and pulmonary hypertension, all of which are likely contributing to her symptoms also. Would plan to continue current diuretic regimen in attempt to maintain euvolemic. Perform walking oximetry study and obtain supplemental oxygen prior to discharge. Secondary pulmonary hypertension workup will also be started. The patient would likely benefit from an outpatient polysomnogram. Would plan to continue current scheduled aerosol treatments. Transition from IV steroids to prednisone and complete a 5 day burst. 2. Radiographic evidence of fibrotic changes and emphysema The changes noted on CT seem out of proportion to her self-reported limited smoking history. However, she does admit to significant secondhand smoke exposure. Nevertheless, the patient needs to have outpatient PFTs completed to confirm a diagnosis of COPD and grade its severity. She can continue to utilize Symbicort upon discharge from the hospital. Upon follow-up in the pulmonary medicine clinic and after completion of PFTs, her inhaler regimen can be further optimized. Will check alpha-1 antitrypsin level. 3. Heart failure with preserved ejection fraction/pulmonary hypertension Continue current diuretic regimen. Autoimmune/vasculitis workup is pending. The patient may benefit from an outpatient polysomnogram. 4. Morbid obesity/hypertension/chronic kidney disease Complicates care, management, recovery and prognosis. Continue home medications as indicated. Encourage incentive spirometer use and mobilize patient as tolerated. This note was generated with [employer] dictation software. It may contain incorrect words, spelling, and punctuation that were not noted in checking the note before signing. Code Visit Inpatient E&M: 78099 Subs Hosp L2
[2017-12-06] MEDS: Aspirin 325 MG Tablet PO (08:08)
[2017-12-06] MEDS: predniSONE 20 MG Tablet 40 MG PO (08:09)
[2017-12-06 08:34] LABS: Anion Gap 9 (5-15); BUN 48 mg/dL (7-18); BUN/Creat Ratio 32.9 RATIO (10-20); Calcium,Total 8.2 mg/dL (8.5-10.1); Chloride 110 mmol/L (98-107); Creatinine, Serum 1.46 mg/dL (0.55-1.02); EST Glomerular Filtration Rate 37 mL/min (>60); Est Glom Filt Rate - Afr Amer 44 mL/min (>60); Estimated Creatinine Clearance 28.77 ml/min; Glucose 92 mg/dL (74-106); Potassium 3.5 mmol/L (3.5-5.1); Sodium Level 141 mmol/L (136-145)
[2017-12-06] MEDS: Docusate Sodium 100 MG Capsule PO (09:16)
[2017-12-06] MEDS: hydroCHLOROthiazide 25 MG Tablet PO (09:16)
[2017-12-06] MEDS: guaiFENesin 1,200 MG Tablet 1200 MG PO (09:17)
[2017-12-06] MEDS: amLODIPine 10 MG Tablet PO (09:17)
[2017-12-06] MEDS: Famotidine 20 MG Tablet PO (09:17)
--- NOTE | 2017-12-06 10:18 | PCM.PROGNOTE ---
Patient Problems: Active and Suspected Problems Acute respiratory failure with hypoxia (Acute) Subjective: Chief complaint: Follow-up of admission for acute respiratory failure secondary to COPD exacerbation as well as pulmonary hypertension and probable lung fibrosis. Patient seen and examined. No acute events overnight. She remained with minimal shortness of breath at rest but worsened with ambulation and she is getting better with oxygen. Denied fever or chills. Denied cough or sputum production. She is anxious about going home today and she mentioned that no one will be available at home today to help her. Her vital signs are stable, pulse ox is 95% room air at rest. - Physical Exam General: Alert, Oriented x3, Cooperative, - - Minimally short of breath. HEENT: Atraumatic, PERRLA, EOMI Oral: Moist Mucosa, No Gingival or Mucosal Lesions/ Ulcerations Neck: Supple, No JVD, Negative Carotid Bruits, Trachea Midline, Thyroid Normal Size and Texture Lungs: Clear to auscultation, No rhonchi, No rales, Diminished, Wheezes, - - Decreased breath sounds bilateral, occasional wheezes. Cardiovascular: Regular rate, Regular Rhythm, Normal S1, Normal S2, PMI Normal Abdomen: Bowel Sounds Present, Soft, Non Tender, Non-Distended, No Hepato-splenomegaly, Obese Extremities: No clubbing, No cyanosis, No edema Skin: No rashes, No breakdown Lymphatic: No Cervical, Supraclavicular, or Inguinal Adenopathy Neurological: Cranial nerves II-XII grossly intact, Neuro grossly intact Psych/Mental Status: Normal Affect, Appropriate Vital Signs Temp Pulse Resp BP Pulse Ox 98.7 F 112 H 20 H 164/90 H 95 12/06/17 09:11 12/06/17 09:11 12/06/17 09:15 12/06/17 09:11 12/06/17 09:11 Oxygen Flow Rate (L/min) [ 2 AMBULATION with Oxygen] Oxygen Flow Rate (L/min) 95 Oxygen Delivery Method Nasal Cannula Weight: 256 lb 13.416 oz Body Mass Index (BMI) 41.4 Intake and Output for Last 24 Hours 12/04/17 12/05/17 12/06/17 23:59 23:59 23:59 Intake Total 1620 / 1620 1490 / 1490 500 / 500 Output Total 900 / 900 3225 / 3225 1250 / 1250 Balance 720 / 720 -1735 / -1735 -750 / -750 Microbiology Past 72 Hours 12/05/17 06:00 Gram Stain - Final Sputum, Expectorated/Coughed Laboratory Tests Past 24 Hrs 12/06/17 08:00 Sodium 141 Potassium 3.5 Chloride 110 H Carbon Dioxide 22.0 Anion Gap 9 BUN 48 H Creatinine 1.46 H Estim Creat Clear Calc 28.77 Est GFR (MDRD) Af Amer 44 L Est GFR (MDRD) Non-Af 37 L BUN/Creatinine Ratio 32.9 H Glucose 92 Calcium 8.2 L Medical Necessity - Tobacco Use Smoking Status: Former smoker - 7.5-pack-year history Tobacco Use: Cigarettes Assessment/Plan Active and Suspected Problems Acute respiratory failure with hypoxia (Acute) This is an 82 years old female patient admitted because of shortness of breath, cough, wheezing and she was found to have acute hypoxic respiratory failure attributed to acute exacerbation of suspected COPD and she was found to have findings on chest x-ray consistent with possible lung fibrosis. #1 acute hypoxic respiratory failure: Attributed to acute exacerbation of COPD as well as probable lung fibrosis. She is on bronchodilators and on oral prednisone today. Respiratory panel for viruses were negative. Sputum cultures pending. She has been afebrile, pulse ox remained normal on room air. Her ambulatory pulse ox dropped down to less than 88% on ambulation and she did qualify for home oxygen. 2D echocardiogram revealed ejection fraction of 60% and moderate pulmonary hypertension.Plan to continue same treatment, DC home tomorrow. #2 acute exacerbation of suspected COPD/probable lung fibrosis: He is on bronchodilators and oral prednisone as above. Patient is a big time smoker but never diagnosed with COPD officially. Chest x-ray revealed findings consistent with COPD and probable lung fibrosis. Plan as above to continue on bronchodilators, steroids and oxygen. DC home on home oxygen tomorrow, follow up with pulmonology as outpatient for lung function test. #3 hypertension: Blood pressure has been fluctuating, continue Norvasc, HCTZ, metoprolol and IV hydralazine as needed. #4 stage III chronic kidney disease: Baseline kidney function has been around 1.3-1.6 mg/dL. today's creatinine is 1.46, stable at baseline. #5 history of renal cell carcinoma: Status post nephrectomy, kidney function stable. #6 history of TIA: Continue aspirin. #7 DVT prophylaxis: Subcu heparin. This note was generated with [employer] dictation software. It may contain incorrect words, spelling, and punctuation that were not noted in checking the note before signing. Code Visit Inpatient E&M: 51630 Subs Hosp L2
--- NOTE | 2017-12-06 11:40 | PCM.DC ---
- Discharge Diagnoses Current Active Problems: Current Active and Chronic Problems Acute respiratory failure with hypoxia (Acute) Obesity, morbid, BMI 40.0-49.9 (Chronic) History of tobacco use (Chronic) quit 1994 Gout (Chronic) Hypoxia (Chronic) You will use the following diet at home:: Cardiac Your food should be the consistency of: Regular Discharge Activity: Return to Normal Activity Weight Bearing Status: Weight bearing as tolerated Call your doctor if you observe: Fever of 101 or Higher, Shortness of breath, Dizziness, Fainting spells, Chest pain, Increased palpitations (irregular heartbeat), Uncontrolled pain Instructions: Discharge Instructions: Using Oxygen at Home, Discharge Instructions: Using a Metered-Dose Inhaler, COPD: Using Inhalers Allergies/Adverse Reactions: Allergies clindamycin [From Cleocin] Allergy (Verified 12/02/17 13:59) Unknown oxycodone HCl [From OxyContin] Allergy (Verified 12/02/17 13:59) Anaphylaxis Sulfa (Sulfonamide Antibiotics) Allergy (Verified 12/02/17 13:59) Anaphylaxis vancomycin Allergy (Verified 12/02/17 13:59) Hives guaifenesin [From Entex LA] Adverse Reaction (Verified 12/02/17 13:59) Unknown phenylephrine [From Entex LA] Adverse Reaction (Verified 12/02/17 13:59) Unknown phenylpropanolamine [From Entex LA] Adverse Reaction (Verified 12/02/17 13:59) Unknown BETA BLOCKERS Adverse Reaction (Uncoded 12/02/17 13:59) Unknown Medications to take at Discharge Aspirin 325 mg PO DAILY@0800 04/04/15 Estrogens, Conjugated [Premarin] 0.3 mg PO UD 04/04/15 Hydrochlorothiazide [Hctz] 25 mg PO DAILY 04/04/15 MedroxyPROGESTERone [Provera] 2.5 mg PO UD 05/18/15 Albuterol Inhaler [Ventolin Hfa] 2 puff INHALATION Q4H PRN PRN #1 inhaler 09/11/16 Hydrocodone Bitart/Apap 5-325 [[place] 5/325] 1 - 2 tablet PO Q4H PRN PRN #20 tablet 12/23/16 Budesonide/Formoterol 160/4.5 [Symbicort 160/4.5 Mcg Inhaler (SP)] 2 puff INHALATION BID 12/02/17 Felodipine [Plendil] 10 mg PO DAILY 12/02/17 Oxygen, Home [Home Oxygen] 2 lpm NASAL CONT #1 unit 12/06/17 Prednisone [Deltasone] 40 mg PO DAILY #10 tab 12/06/17 The following prescriptions were given: Oxygen, Home [Home Oxygen] 2 lpm NASAL CONT #1 unit Prednisone [Deltasone] 40 mg PO DAILY #10 tab Primary Care Physician: Dustin Mendieta [Primary Care Provider] - Please follow up with your Primary Care Physician in: 1 week. Please Follow Up With: bAdiel Mosley DO When: 2 weeks.
--- NOTE | 2017-12-06 13:30 | PCM.DC.SUM ---
Discharge Date and Diagnosis Date of Admission: 12/02/17 Date of Discharge: 12/06/17 - Primary Discharge Diagnosis #1 acute hypoxic respiratory failure. #2 acute exacerbation of suspected COPD/probable lung fibrosis. - Secondary Discharge Diagnosis Chronic Problems Obesity, morbid, BMI 40.0-49.9 (Chronic) History of tobacco use (Chronic) quit 1994 Gout (Chronic) Hypoxia (Chronic) COPD exacerbation (Chronic) Hypertension (Chronic) History of TIA (transient ischemic attack) (Chronic) History of kidney cancer (Chronic) CKD (chronic kidney disease) (Chronic) Hospital Course and Treatment Imaging Results: Clinical Impression(s) from Imaging Studies Chest X-Ray 12/02/17 14:22 IMPRESSION: Degenerative changes, as described above. No demonstrated acute cardiopulmonary process. No significant interval change Electronically Signed: Delmer Barrett MD at 15:33 EDT , Service support , Chest CT 12/03/17 11:51 IMPRESSION: Stable emphysematous changes along with lower lobe fibrosis. There are coronary arterial calcifications. Stable mediastinal lymph nodes. Electronically Signed: Adonay Martinez MD at 16:19 EDT , Service support , Chest X-Ray 12/05/17 07:28 IMPRESSION: No significant change. No new infiltrate is seen. Electronically Signed: Mazin Jiménez MD at 8:51 EDT Tel , Service support , Dr. Mosley, pulmonology. Operations: None Procedures: 2-D Echocardiogram, EKG Summary of Care Provided: The patient is a 82 year old F admitted because of shortness of breath, cough and wheezing and she was found to have acute hypoxic respiratory failure attributed to acute COPD exacerbation as well as probable lung fibrosis. Chest x-ray revealed interstitial fibrotic changes of both lungs. CT scan chest without contrast revealed diffuse emphysematous changes with bilateral lower lobe fibrosis. She was treated with bronchodilators and IV steroids. Her blood work was remarkable for chronically elevated creatinine which was stable table. She had 2D echocardiogram done and revealed ejection fraction 60% and moderate pulmonary hypertension. With above-mentioned treatment, patient symptoms improved but she continued to have exertional shortness of breath and her pulse oximeter dropped down to less than 88%. Aggressive bronchodilation therapy, patient remained stable at rest with normal pulse ox in room air but her oxygen continued to drop upon ambulation. She did qualify for home oxygen as she is ambulatory at home and doing her activities of daily living. Pulmonology consulted and recommended to have lung function test as well as polysomnography as outpatient because of suspected obstructive sleep apnea. Patient discharged home on a fixed dose of prednisone 40 mg p.o. daily for 5 days, discharged on home oxygen at 2 L continuously, continued on her chronic home medication including Symbicort and albuterol as needed, plan to follow-up with PCP in 1 week and follow-up with pulmonology in 2 weeks for lung function test and polysomnography. Discharge Activity: Return to Normal Activity Weight Bearing Status: Weight bearing as tolerated Call your doctor if you observe: Fever of 101 or Higher, Shortness of breath, Dizziness, Fainting spells, Chest pain, Increased palpitations (irregular heartbeat), Uncontrolled pain Home Medications: Medications to take at Discharge Aspirin 325 mg PO DAILY@0800 04/04/15 Estrogens, Conjugated [Premarin] 0.3 mg PO UD 04/04/15 Hydrochlorothiazide [Hctz] 25 mg PO DAILY 04/04/15 MedroxyPROGESTERone [Provera] 2.5 mg PO UD 05/18/15 Albuterol Inhaler [Ventolin Hfa] 2 puff INHALATION Q4H PRN PRN #1 inhaler 09/11/16 Hydrocodone Bitart/Apap 5-325 [Marg[place] 5/325] 1 - 2 tablet PO Q4H PRN PRN #20 tablet 12/23/16 Budesonide/Formoterol 160/4.5 [Symbicort 160/4.5 Mcg Inhaler (SP)] 2 puff INHALATION BID 12/02/17 Felodipine [Plendil] 10 mg PO DAILY 12/02/17 Oxygen, Home [Home Oxygen] 2 lpm NASAL CONT #1 unit 12/06/17 Prednisone [Deltasone] 40 mg PO DAILY #10 tab 12/06/17 Following Prescrptions Were Given to Patient: Oxygen, Home [Home Oxygen] 2 lpm NASAL CONT #1 unit Prednisone [Deltasone] 40 mg PO DAILY #10 tab Primary Care Physician: Dustin Mendieta [Primary Care Provider] - Please follow up with your Primary Care Physician in: 1 week. Please Follow Up With: Abdiel Mosley DO When: 2 weeks. Patient Instructions: Discharge Instructions: Using a Metered-Dose Inhaler, Discharge Instructions: Using Oxygen at Home, COPD: Using Inhalers Disposition: Home Minutes spent on discharge:: 32 Patient Condition:: Stable Medical Necessity - Tobacco Use Smoking Status: Former smoker - 7.5-pack-year history Tobacco Use: Cigarettes Meaningful Use Info Meaningful Use Diagnoses (Choose all that apply): None applicable Code Visit Please ignore the visit code at the bottom of the progress note of December 06, 2017 because patient discharged on the same day. Please use the visit code on the bottom of the discharge summary. Inpatient E&M: [id number] Disch Hosp
--- NOTE | 2017-12-06 13:38 | DS.PCM_ITS ---
Discharge Date and Diagnosis Date of Admission: 12/02/17 Date of Discharge: 12/06/17 - Primary Discharge Diagnosis #1 acute hypoxic respiratory failure. #2 acute exacerbation of suspected COPD/probable lung fibrosis. - Secondary Discharge Diagnosis Chronic Problems Obesity, morbid, BMI 40.0-49.9 (Chronic) History of tobacco use (Chronic) quit 1994 Gout (Chronic) Hypoxia (Chronic) COPD exacerbation (Chronic) Hypertension (Chronic) History of TIA (transient ischemic attack) (Chronic) History of kidney cancer (Chronic) CKD (chronic kidney disease) (Chronic) Hospital Course and Treatment Imaging Results: Clinical Impression(s) from Imaging Studies Chest X-Ray 12/02/17 14:22 IMPRESSION: Degenerative changes, as described above. No demonstrated acute cardiopulmonary process. No significant interval change Electronically Signed: Delmer Barrett MD at 15:33 EDT , Service support , Chest CT 12/03/17 11:51 IMPRESSION: Stable emphysematous changes along with lower lobe fibrosis. There are coronary arterial calcifications. Stable mediastinal lymph nodes. Electronically Signed: Adonay Martinez MD at 16:19 EDT , Service support , Chest X-Ray 12/05/17 07:28 IMPRESSION: No significant change. No new infiltrate is seen. Electronically Signed: Mazin Jiménez MD at 8:51 EDT Tel , Service support , Dr. Mosley, pulmonology. Operations: None Procedures: 2-D Echocardiogram, EKG Summary of Care Provided: The patient is a 82 year old F admitted because of shortness of breath, cough and wheezing and she was found to have acute hypoxic respiratory failure attributed to acute COPD exacerbation as well as probable lung fibrosis. Chest x-ray revealed interstitial fibrotic changes of both lungs. CT scan chest without contrast revealed diffuse emphysematous changes with bilateral lower lobe fibrosis. She was treated with bronchodilators and IV steroids. Her blood work was remarkable for chronically elevated creatinine which was stable table. She had 2D echocardiogram done and revealed ejection fraction 60% and moderate pulmonary hypertension. With above-mentioned treatment, patient symptoms improved but she continued to have exertional shortness of breath and her pulse oximeter dropped down to less than 88%. Aggressive bronchodilation therapy, patient remained stable at rest with normal pulse ox in room air but her oxygen continued to drop upon ambulation. She did qualify for home oxygen as she is ambulatory at home and doing her activities of daily living. Pulmonology consulted and recommended to have lung function test as well as polysomnography as outpatient because of suspected obstructive sleep apnea. Patient discharged home on a fixed dose of prednisone 40 mg p.o. daily for 5 days, discharged on home oxygen at 2 L continuously, continued on her chronic home medication including Symbicort and albuterol as needed, plan to follow-up with PCP in 1 week and follow-up with pulmonology in 2 weeks for lung function test and polysomnography. Discharge Activity: Return to Normal Activity Weight Bearing Status: Weight bearing as tolerated Call your doctor if you observe: Fever of 101 or Higher, Shortness of breath, Dizziness, Fainting spells, Chest pain, Increased palpitations (irregular heartbeat), Uncontrolled pain Home Medications: Medications to take at Discharge Aspirin 325 mg PO DAILY@0800 04/04/15 Estrogens, Conjugated [Premarin] 0.3 mg PO UD 04/04/15 Hydrochlorothiazide [Hctz] 25 mg PO DAILY 04/04/15 MedroxyPROGESTERone [Provera] 2.5 mg PO UD 05/18/15 Albuterol Inhaler [Ventolin Hfa] 2 puff INHALATION Q4H PRN PRN #1 inhaler Hydrocodone Bitart/Apap 5-325 [[place] 5/325] 1 - 2 tablet PO Q4H PRN PRN #20 tablet 12/23/16 Budesonide/Formoterol 160/4.5 [Symbicort 160/4.5 Mcg Inhaler (SP)] 2 puff INHALATION BID 12/02/17 Felodipine [Plendil] 10 mg PO DAILY 12/02/17 Oxygen, Home [Home Oxygen] 2 lpm NASAL CONT #1 unit 12/06/17 Prednisone [Deltasone] 40 mg PO DAILY #10 tab 12/06/17 Following Prescrptions Were Given to Patient: Oxygen, Home [Home Oxygen] 2 lpm NASAL CONT #1 unit Prednisone [Deltasone] 40 mg PO DAILY #10 tab Primary Care Physician: Dustin Mendieta [Primary Care Provider] - Please follow up with your Primary Care Physician in: 1 week. Please Follow Up With: Abdiel Mosley DO When: 2 weeks. Patient Instructions: Discharge Instructions: Using a Metered-Dose Inhaler, Discharge Instructions: Using Oxygen at Home, COPD: Using Inhalers Disposition: Home Minutes spent on discharge:: 32 Patient Condition:: Stable Medical Necessity - Tobacco Use Smoking Status: Former smoker - 7.5-pack-year history Tobacco Use: Cigarettes Meaningful Use Info Meaningful Use Diagnoses (Choose all that apply): None applicable Code Visit Please ignore the visit code at the bottom of the progress note of December 06, 2017 because patient discharged on the same day. Please use the visit code on the bottom of the discharge summary. Inpatient E&M: [id number] Disch Hosp
[2017-12-07 14:07] LABS: ANTINUCLEAR ANTIBODIES DIRECT Negative (Negative)
[2017-12-08 16:09] LABS: Cytoplasmic Ab (C-ANCA) <1:20 titer (Neg:<1:20)
[2017-12-08 16:12] LABS: Alpha Antitrypsin Serum 131 mg/dL (90-200)
[2017-12-09 08:17] LABS: CCP IgG Antibodies 8 units (0-19); Perinuclear Ab (P-ANCA) <1:20 titer (Neg:<1:20)
== END 2017-12-06 13:10 | disposition home or self-care (01) | DRG 190 ==
LOC: ED 15:32 → MS2 17:01
PROVIDERS: Internal Medicine Critical Care Medicine; Admitting Provider Family Medicine; Emergency Provider Emergency Medicine; Family Provider Family Medicine; PCP Family Medicine; Visit Provider Hospitalist
DX: J44.1 Chronic obstructive pulmonary disease with (acute) exacerbation (principal); J96.01 Acute respiratory failure with hypoxia; I27.20 Pulmonary hypertension, unspecified; E66.01 Morbid (severe) obesity due to excess calories; J84.10 Pulmonary fibrosis, unspecified; Z68.41 Body mass index [BMI] 40.0-44.9, adult; Z87.891 Personal history of nicotine dependence; Z77.22 Contact with and (suspected) exposure to environmental tobacco smoke (acute) (chronic); Z99.81 Dependence on supplemental oxygen; Z79.899 Other long term (current) drug therapy; Z79.82 Long term (current) use of aspirin; Z86.73 Personal history of transient ischemic attack (TIA), and cerebral infarction without residual deficits; N18.3 Chronic kidney disease, stage 3 (moderate); M1A.9XX0 Chronic gout, unspecified, without tophus (tophi); Z85.528 Personal history of other malignant neoplasm of kidney; G47.33 Obstructive sleep apnea (adult) (pediatric); Z79.890 Hormone replacement therapy; Z90.5 Acquired absence of kidney; Z96.653 Presence of artificial knee joint, bilateral; I12.9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 chronic kidney disease with stage 1 through stage 4 chronic kidney disease, or unspecified chronic kidney disease
CPT/HCPCS: 36415; 71045; 71250; 80048; 82103; 83735; 83880; 84443; 84484; 85025; 86038; 86200; 86225; 86235; 86256; 86431; 87070; 87205; 87633; 93005; 93306; 94640; 94667; 94668; 97161; 97165; 97802; 99284; A4216; J1940

== ENCOUNTER → 2018-01-19 13:20 | Outpatient (CLI) | payer MEDICARE, OTHER, SELFPAY ==
--- NOTE | 2018-01-20 05:44 | PFTCOMP ---
COMPLETE PULMONARY FUNCTION TEST INTERPRETATION Brief HPI: Patient is an 82 year old female, currently under the care of Meseret Sommers, who presents to [facility] for complete pulmonary function tests secondary to diagnosis of COPD. Respiratory therapist reports good effort and reproducible results. Interpretation: Forced expiration spirometry shows a mild large airways obstructive ventilatory defect with an FEV1 of 96% predicted. There is a significant bronchodilator response in FEV1 by ATS criteria. Spirograms are of good quality and plateau slowly, indicating slowly emptying areas of the lungs. The respiratory flow volume loop shows decreased expiratory flow rates at all lung volumes consistent with airway obstruction. Lung volumes by body plethysmography show an elevated total lung capacity at 4.63 L, 139% predicted. All other lung volumes are increased symmetrically. Diffusion capacity by carbon monoxide is decreased at 8.6% predicted. The airway resistance is normal. No previous pulmonary function tests were available for review. Impression: Partially reversible mild large airways obstructive ventilatory defect resulting in hyperinflation. Diffusing capacity is reduced out of proportion. Consideration for asthma/CHF or COPD/asthma overlap syndrome.
== END ==
PROVIDERS: Family Provider Family Medicine; PCP Family Medicine; Visit Provider Nurse Practitioner Acute Care
DX: R06.02 Shortness of breath (principal)
CPT/HCPCS: 94060; 94726; 94729

== ENCOUNTER → 2018-01-26 12:35 | Outpatient (CLI) | payer MEDICARE, OTHER, SELFPAY ==
[2018-01-26 12:45] VITALS: PULSE 104; PULSE 105; PULSE 106; PULSE 108; PULSE 111; PULSE 117; PULSE 80; PULSE 90; O2SAT 84; O2SAT 86; O2SAT 87; O2SAT 90; O2SAT 92; O2SAT 93; O2SAT 96
--- NOTE | 2018-01-27 11:29 | PCM.PSN.6M ---
PSN 6 Minute Walk Test - 6 Minute Walk Test 6 Minute Walk Test: 6 Minute Walk Test PSN:6-Minute Walk Test Start: 01/26/18 13:09 Freq: Status: Active Protocol: RESP.6MINW Document 01/26/18 12:45 [facility] [place] (Rec: 01/26/18 13:14 [facility] [id number]) 6 Minute Walk Test Date Performed 01/26/18 Time Performed 12:45 Height 5 ft 6.5 in Weight: 249 lb Weight in Pounds 249.[address]: Meseret Sommers Assistive device used: None Pre-test Oxygen Delivery Method Room Air Pulse Ox (%) 93 Pulse Rate (60-100 beats/min) 80 Dyspnea Chrystal Scale (0-10) 0 Exertion Chrystal Scale (6-20) 6 1st minute Oxygen Delivery Method Room Air Pulse Ox (%) 84 Pulse Rate (60-100 beats/min) 108 H Reported Symptoms Increased Work of Breathing 2nd minute Oxygen Flow Rate (L/min) (L/min) 2 Oxygen Delivery Method Nasal Cannula Pulse Ox (%) 92 Pulse Rate (60-100 beats/min) 105 H Number of Rests Taken 1 Reported Symptoms Increased Work of Breathing 3rd minute Oxygen Flow Rate (L/min) (L/min) 2 Oxygen Delivery Method Nasal Cannula Pulse Ox (%) 87 Pulse Rate (60-100 beats/min) 104 H Number of Rests Taken 1 Reported Symptoms Increased Work of Breathing 4th minute Oxygen Flow Rate (L/min) (L/min) 3 Oxygen Delivery Method Nasal Cannula Pulse Ox (%) 93 Pulse Rate (60-100 beats/min) 106 H Number of Rests Taken 1 Reported Symptoms Increased Work of Breathing 5th minute Oxygen Flow Rate (L/min) (L/min) 3 Oxygen Delivery Method Nasal Cannula Pulse Ox (%) 90 Pulse Rate (60-100 beats/min) 111 H 6th minute Oxygen Flow Rate (L/min) (L/min) 3 Oxygen Delivery Method Nasal Cannula Pulse Ox (%) 86 Pulse Rate (60-100 beats/min) 117 H Number of Rests Taken 0 Reported Symptoms Increased Work of Breathing Post-test Oxygen Flow Rate (L/min) (L/min) 4 Oxygen Delivery Method Nasal Cannula Pulse Ox (%) 96 Pulse Rate (60-100 beats/min) 90 Dyspnea Chrystal Scale (0-10) 3 Exertion Chrystal Scale (6-20) 14 Reported Symptoms Increased Work of Breathing Full Laps Walked 6 Partial Lap, Number of Tiles Walked 34 Total Distance Walked (ft) 388 - Interpretation Interpretation: The patient ambulated 388 feet over the course of 6 minutes beginning on room air without assistive devices or breaks. Pretesting oxygen saturation was noted to be 93% on room air. With ambulation, the patient desaturated to 84% at minute 1 of testing. 2 L/min of supplemental oxygen was applied. However, the patient again desaturated to 87% at minute 3 of testing. The flow rate was increased to 3 L/min. Nevertheless, the patient again desaturated to 86% at minute 6 of testing, requiring an increase in supplemental flow rate to 4 L/min. This test represents impaired walk distance and significant exertional oxygen desaturation, requiring supplemental oxygen. - Recommendations Recommendations: 4 L/min of supplemental oxygen should be utilized with exertion.
--- NOTE | 2018-01-27 11:32 | WT_ITS ---
PSN 6 Minute Walk Test - 6 Minute Walk Test 6 Minute Walk Test: 6 Minute Walk Test PSN:6-Minute Walk Test Start: 01/26/18 13: 09 Freq: Status: Active Protocol: RESP.6MINW Document 01/26/18 12:45 [facility] [place] (Rec: 01/26/18 13:14 [facility] [place] [id number]) 6 Minute Walk Test Date Performed 01/26/18 Time Performed 12:45 Height 5 ft 6.5 in Weight: 249 lb Weight in Pounds 249.[address]: Meseret Sommers Assistive device used: None Pre-test Oxygen Delivery Method Room Air Pulse Ox (%) 93 Pulse Rate (60-100 beats/min) 80 Dyspnea Chrystal Scale (0-10) 0 Exertion Chrystal Scale (6-20) 6 1st minute Oxygen Delivery Method Room Air Pulse Ox (%) 84 Pulse Rate (60-100 beats/min) 108 H Reported Symptoms Increased Work of Breathing 2nd minute Oxygen Flow Rate (L/min) (L/min) 2 Oxygen Delivery Method Nasal Cannula Pulse Ox (%) 92 Pulse Rate (60-100 beats/min) 105 H Number of Rests Taken 1 Reported Symptoms Increased Work of Breathing 3rd minute Oxygen Flow Rate (L/min) (L/min) 2 Oxygen Delivery Method Nasal Cannula Pulse Ox (%) 87 Pulse Rate (60-100 beats/min) 104 H Number of Rests Taken 1 Reported Symptoms Increased Work of Breathing 4th minute Oxygen Flow Rate (L/min) (L/min) 3 Oxygen Delivery Method Nasal Cannula Pulse Ox (%) 93 Pulse Rate (60-100 beats/min) 106 H Number of Rests Taken 1 Reported Symptoms Increased Work of Breathing 5th minute Oxygen Flow Rate (L/min) (L/min) 3 Oxygen Delivery Method Nasal Cannula Pulse Ox (%) 90 Pulse Rate (60-100 beats/min) 111 H 6th minute Oxygen Flow Rate (L/min) (L/min) 3 Oxygen Delivery Method Nasal Cannula Pulse Ox (%) 86 Pulse Rate (60-100 beats/min) 117 H Number of Rests Taken 0 Reported Symptoms Increased Work of Breathing Post-test Oxygen Flow Rate (L/min) (L/min) 4 Oxygen Delivery Method Nasal Cannula Pulse Ox (%) 96 Pulse Rate (60-100 beats/min) 90 Dyspnea Chrystal Scale (0-10) 3 Exertion Chrystal Scale (6-20) 14 Reported Symptoms Increased Work of Breathing Full Laps Walked 6 Partial Lap, Number of Tiles Walked 34 Total Distance Walked (ft) 388 - Interpretation Interpretation: The patient ambulated 388 feet over the course of 6 minutes beginning on room air without assistive devices or breaks. Pretesting oxygen saturation was noted to be 93% on room air. With ambulation, the patient desaturated to 84% at minute 1 of testing. 2 L/min of supplemental oxygen was applied. However, the patient again desaturated to 87% at minute 3 of testing. The flow rate was increased to 3 L/min. Nevertheless, the patient again desaturated to 86% at minute 6 of testing, requiring an increase in supplemental flow rate to 4 L/ min. This test represents impaired walk distance and significant exertional oxygen desaturation, requiring supplemental oxygen. - Recommendations Recommendations: 4 L/min of supplemental oxygen should be utilized with exertion.
== END ==
PROVIDERS: Family Provider Family Medicine; PCP Family Medicine; Visit Provider Nurse Practitioner Acute Care
DX: R06.02 Shortness of breath (principal)
CPT/HCPCS: 94618

== ENCOUNTER 2018-03-11 10:51 | Emergency (ER) | payer MEDICARE, OTHER, SELFPAY ==
[2018-03-11 10:52] VITALS: BP 161/78; PULSE 94; RESP 17; TEMP 36.6; O2SAT 93; BMI 40.3
--- NOTE | 2018-03-11 11:10 | NURSING ---
NO LW OR POA
[2018-03-11 11:39] LABS: Absolute Lymphocyte Count 1.42 X10^3/ul (0.83-4.51); Absolute Neutrophil Count 5.2 X10^3/uL (2.0-7.7); Basophil# 0.04 X10^3/uL; Basophil% 0.5 % (0-1); Eosinophil# 0.21 X10^3/uL; Eosinophils% 2.8 % (0-5); Hematocrit 45.4 % (37-47); Hemoglobin 14.5 g/dl (12.0-15.0); Lymphocyte # 1.42 X10^3/ul (4.0); Lymphocyte % 19.2 % (19-41); Mean Corp Hgb Conc 31.9 g/gl (32-36); Mean Corpuscular Hgb 28.3 pg (27.0-32.0); Mean Corpuscular Volume 88.5 fL (81-99); Mean Platelet Vol. 10.1 fl (6.2-12.0); Monocyte# 0.53 X10^3/uL; Monocyte% 7.2 % (0-10); Neutrophil # 5.18 X10^3/uL (2.7-7.7); Neutrophil % 70.2 % (47-70); Platelet Count 247 K/mm3 (150-450); RBC Distribution Width SD 48.5 fl (35.1-43.9); Red Blood Count 5.13 M/mm3 (4.2-5.4); White Blood Count 7.4 K/mm3 (4.4-11.0)
[2018-03-11 11:48] LABS: POSITIVE COUNT NO; POSITIVE DIFFERENTIAL NO; POSITIVE MORPHOLOGY NO
[2018-03-11 12:03] LABS: Anion Gap 6 (5-15); BUN 33 mg/dL (7-18); BUN/Creat Ratio 22.1 RATIO (10-20); Calcium,Total 8.9 mg/dL (8.5-10.1); Chloride 110 mmol/L (98-107); Creatinine, Serum 1.49 mg/dL (0.55-1.02); EST Glomerular Filtration Rate 36 mL/min (>60); Est Glom Filt Rate - Afr Amer 43 mL/min (>60); Estimated Creatinine Clearance 28.19 ml/min; Glucose 117 mg/dL (74-106); Potassium 4.7 mmol/L (3.5-5.1); Sodium Level 141 mmol/L (136-145)
[2018-03-11 12:51] VITALS: BP 180/94; PULSE 81; RESP 16; O2SAT 98
[2018-03-11 13:53] LABS: Bacteria 0 SEEN /hpf (None Seen)
--- NOTE | 2018-03-11 13:55 | CT_ITS ---
STUDY: CT ABDOMEN AND PELVIS WITHOUT CONTRAST REASON FOR EXAM: Female, 82 years old. Right flank pain and right lower quadrant pain. RADIATION DOSAGE (If Supplied By Facility): CTDIvol = ( 24.18 ) mGy, DLP = ( 1165.76 ) mGycm TECHNIQUE: Transaxial images were obtained from the dome of the diaphragm to the symphysis pubis without oral contrast, and without intravenous contrast. Sagittal and coronal images were reconstructed. Individualized dose optimization techniques were used for this CT. COMPARISON: None. FINDINGS: Increased interstitial markings at the lung bases with subpleural blebs suggestive of a chronic bibasilar scarring. Coronary artery calcification. Normal liver. There are surgical clips in the gallbladder fossa consistent with a prior cholecystectomy. Normal spleen. Normal pancreas. Normal bilateral adrenal glands. Normal right kidney. Normal left kidney. Normal visualized stomach. Normal small intestine. There are multiple colonic diverticula consistent with diverticulosis. There are surgical clips in the region of the appendix consistent with a prior appendectomy. There is diffuse atherosclerotic calcification of the abdominal aorta, without a demonstrated aneurysm. Normal inferior vena cava. Normal retroperitoneum. Normal urinary bladder. Normal abdominal wall. There are diffuse degenerative changes of the visualized lumbar spine. Minimal anterior listhesis of L4 on L5 most likely secondary to facet joint osteoarthritis. CT/Abdomen/Pelvis without Cont IMPRESSION: Sigmoid diverticulosis. Electronically Signed: Terrell Solano MD at 14:58 EDT Tel [phone], Service support ,
[2018-03-11 13:56] LABS: Color, Urine Yellow (Yellow); Glucose, Dipstick Normal (Normal); Ketone-Dipstick Negative (Negative); Leukocyte Esterase-Dipstick Negative /ul (Negative); Nitrite-Dipstick Negative (Negative); Occult Blood-Urine Negative /ul (Negative); Protein-Dipstick 100 mg/dl (Negative); Urine Bilirubin Dipstick Negative (Negative); Urine Clarity Clear (Clear); Urine Urobilinogen Normal (Normal)
--- NOTE | 2018-03-11 13:56 | ED.VIS.GEN ---
History of Present Illness Chief Complaint: Abd Pain Informant: Patient Onset: Days - 2 Context: Onset with activity - lifting up a dog, Sudden Onset Quality: pain Location: RLQ, radiating around to R low back Current Severity: Severe Maximum Severity: Severe Worsened by: bending over, lifting leg Relieved by: lying still Associated Symptoms: no fevers, urinary or bowel sx, n/v Narrative: Patient states she has been having this pain for a year or more, and this is a similar exacerbation of it. It has been very mild, except for last year when she got it. Tests were inconclusive including test on her ovary. She had a sudden severe exacerbation 2 days ago that has been worse. - Past Medical History (1) History of TIA (transient ischemic attack) Status: Chronic Comment: 1998 (2) CKD (chronic kidney disease) Status: Chronic (3) COPD exacerbation Status: Chronic (4) History of kidney cancer Status: Chronic (5) Hypertension Status: Chronic Past Medical History - Allergies and Home Meds Allergies/Adverse Reactions: Allergies clindamycin [From Cleocin] Allergy (Verified 03/11/18 10:51) Unknown oxycodone HCl [From OxyContin] Allergy (Verified 03/11/18 10:51) Anaphylaxis Sulfa (Sulfonamide Antibiotics) Allergy (Verified 03/11/18 10:51) Anaphylaxis vancomycin Allergy (Verified 03/11/18 10:51) Hives guaifenesin [From Entex LA] Adverse Reaction (Verified 03/11/18 10:51) Unknown phenylephrine [From Entex LA] Adverse Reaction (Verified 03/11/18 10:51) Unknown phenylpropanolamine [From Entex LA] Adverse Reaction (Verified 03/11/18 10:51) Unknown BETA BLOCKERS Adverse Reaction (Uncoded 03/11/18 10:51) Unknown Primary Care Physician: Dustin Mendieta MD [Primary Care Provider] - Surgical History: appendectomy, - - Tonsillectomy, appendectomy, cholecystectomy, bilateral shoulder rotator cuff repair, right elbow fracture with surgery with pin in place, bilateral total knee replacement. Renal cell carcinoma. SBO. Single salpingectomy and oophorectomy for ectopic . Smoking Status: Former smoker - Family History Paternal Family History: Family History (Last Reviewed 03/02/18 @ 13:47 by Ekaterina Solo) Mother CAD (coronary artery disease) Father Colon cancer Family History: Reports: Cancer - Pancreatic CA, age 3838 years old., Diabetes, Heart Disease, Hypertension Maternal Family History: Family History (Last Reviewed 03/02/18 @ 13:47 by Ekaterina Solo) Mother CAD (coronary artery disease) Father Colon cancer Family History: Reports: Heart Disease, Hypertension Review of Systems All systems negative except as indicated Gastrointestinal: Reports: Abdominal pain. Denies: Nausea, Vomiting Musculoskeletal: Reports: Back pain Physical Exam Vital Signs/Narrative: Vital Signs Temp Pulse Resp BP Pulse Ox 03/11/18 12:51 81 16 180/94 H 98 03/11/18 10:52 97.8 F 94 17 161/78 H 93 Inital Vital Signs reviewed: Yes General: Well nourished, Well developed, Obese Head: Normocephalic, Atraumatic Eyes: Perrl, EOMI ENT: Moist mucous membranes, No rhinorrhea Neck: Supple, Nontender Cardiovascular: Regular rate, Regular rhythm, No murmurs Respiratory: No distress, CTA bilaterally, Chest nontender Abdomen: Soft, Nondistended, Normal bowel sounds, Tender - RLQ. pain made worse w/ R hip flexion, especially against resistance, but no significant inguinal tenderness. no hernias. Back: Nontender, Normal Inspection. Negative for: CVA tenderness, Spinal tenderness Extremities: Nontender, No edema Skin: Normal color, No rash Neurological: Alert, Oriented x3, Cranial nerves II-XII grossly intact, Normal Strength, Normal Sensation Psychological: Normal affect Diagnostic/Tx/Re-eval Impressions Abdomen/Pelvis CT 03/11/18 13:55 IMPRESSION: Sigmoid diverticulosis. Electronically Signed: Terrell Solano MD at 14:58 EDT Tel [phone], Service support , 03/11/18 13:55 Abdomen/Pelvis without Cont [CT] Stat Laboratory Results 03/11/18 03/11/18 03/11/18 Range/Units 11:25 11:25 13:45 WBC 7.4 (4.4-11.0) K/mm3 RBC 5.13 (4.2-5.4) M/mm3 Hgb 14.5 (12.0-15.0) g/dl Hct 45.4 (37-47) % MCV 88.5 (81-99) fL MCH 28.3 (27.0-32.0) pg MCHC 31.9 L (32-36) g/gl RDW 15.0 H (11.6-14.6) % RDW Differential 48.5 H (35.1-43.9) fl Plt Count 247 (150-450) K/mm3 MPV 10.1 (6.2-12.0) fl Immature Gran % (Auto) 0.100 (0.0-0.9) % Neut % (Auto) 70.2 H (47-70) % Lymph % (Auto) 19.2 (19-41) % [place] % (Auto) 7.2 (0-10) % Eos % (Auto) 2.8 (0-5) % Baso % (Auto) 0.5 (0-1) % Absolute Neuts (auto) 5.2 (2.0-7.7) X10^3/uL Absolute Lymphs (auto) 1.42 (0.83-4.51) X10^3/ul Total Counted Not Reportable Sodium 141 (136-145) mmol/L Potassium 4.7 (3.5-5.1) mmol/L Chloride 110 H (98-107) mmol/L Carbon Dioxide 25.0 (21.0-32.0) mmol/L Anion Gap 6 (5-15) BUN 33 H (7-18) mg/dL Creatinine 1.49 H (0.55-1.02) mg/dL Estim Creat Clear Calc 28.19 ml/min Est GFR (MDRD) Af Amer 43 L (>60) mL/min Est GFR (MDRD) Non-Af 36 L (>60) mL/min BUN/Creatinine Ratio 22.1 H (10-20) RATIO Glucose 117 H (74-106) mg/dL Calcium 8.9 (8.5-10.1) mg/dL Urine Color Yellow (Yellow) Urine Clarity Clear (Clear) Urine pH 6.0 (5.0 - 8.0) Ur Specific [place] 1.020 (1.002-1.030) Urine Protein 100 H (Negative) mg/dl Urine Glucose (UA) Normal (Normal) mg/dl Urine Ketones Negative (Negative) mg/dl Urine Occult Blood Negative (Negative) /ul Urine Nitrite Negative (Negative) Urine Bilirubin Negative (Negative) mg/dL Urine Urobilinogen Normal (Normal) mg/dl Ur Leukocyte Esterase Negative (Negative) /ul Urine RBC 0-5 SEEN (0-5) /hpf Urine WBC 0-5 SEEN (0-5) /hpf Ur Squamous Epith Cells 0-5 SEEN (5-10) /hpf Urine Bacteria 0 SEEN (None Seen) /hpf Hyaline Casts 0-5 SEEN (0-5) /lpf Urine Mucus RARE (<or=2+) /hpf - Medical Decision Making Other than chronic renal insufficiency, labs are unremarkable and urine is normal. CT of the abdomen and pelvis shows no acute abnormalities to explain the patient's pain in her right lower quadrant. Diverticulosis without diverticulitis was noted, I discussed that with the patient. She was given some morphine, she said she was still hurting and wanted some [place] because that helped in the past but has a prescription, she does not want any here. Her exam is consistent with a hip flexor strain, and her history is as well, however that does not necessarily explain pain in this area for the past year. I advised her to follow-up. I have advised her that we have no evidence of anything acute or life-threatening at this time. ED Disposition - Plan for ED Patient: Disposition: Home or Assisted Living Chief Complaint: Abd Pain Diagnosis: RLQ abdominal pain, Strain of flexor muscle of right hip Instructions: ED Abdominal Pain Unkn Cause, ED Strain Abdominal Muscle Prescriptions: Hydrocodone Bitart/Apap 5-325 [[place] 5MG-325MG] 1 tablet PO Q4H PRN PRN 2 Days #10 tablet PRN Reason: Pain Referrals: Dustin Mendieta MD [Primary Care Provider] - 3-5 Days if not improving
[2018-03-11 14:00] VITALS: BP 191/105; PULSE 95; RESP 18; O2SAT 97
[2018-03-11 14:05] LABS: Hyaline Cast 0-5 SEEN /lpf (0-5); Mucous, Urine RARE /hpf (<or=2+); Red Blood Cells-Urine 0-5 SEEN /hpf (0-5); Squamous Epithelial Cells - UA 0-5 SEEN /hpf (5-10); White Blood Cells 0-5 SEEN /hpf (0-5)
[2018-03-11] MEDS: Morphine 2 MG/ML Syringe IV (14:07)
[2018-03-11 14:36] VITALS: BP 156/86; PULSE 89; RESP 16; O2SAT 95
[2018-03-11 16:39] VITALS: BP 193/94; PULSE 77; RESP 18; O2SAT 97
== END 2018-03-11 17:29 | disposition home or self-care (01) ==
PROVIDERS: Emergency Provider Emergency Medicine; Family Provider Family Medicine; PCP Family Medicine
DX: R10.31 Right lower quadrant pain (principal); S76.011A Strain of muscle, fascia and tendon of right hip, initial encounter; X58.XXXA Exposure to other specified factors, initial encounter; Y93.9 Activity, unspecified; Y92.9 Unspecified place or not applicable; I12.9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 chronic kidney disease with stage 1 through stage 4 chronic kidney disease, or unspecified chronic kidney disease; N18.9 Chronic kidney disease, unspecified; J44.1 Chronic obstructive pulmonary disease with (acute) exacerbation; Z85.528 Personal history of other malignant neoplasm of kidney; Z86.73 Personal history of transient ischemic attack (TIA), and cerebral infarction without residual deficits; Z79.82 Long term (current) use of aspirin; Z99.81 Dependence on supplemental oxygen; Z79.899 Other long term (current) drug therapy; Z87.891 Personal history of nicotine dependence
CPT/HCPCS: 74176; 80048; 81001; 85025; 96374; 99283; A4216

== ENCOUNTER 2018-04-11 20:03 | Observation (INO) | payer MEDICARE, OTHER, SELFPAY ==
[2018-04-11 20:04] VITALS: BP 188/129; PULSE 101; RESP 18; TEMP 36.7; O2SAT 93; BMI 40.3
--- NOTE | 2018-04-11 20:19 | EKG12_ITS ---
Test Reason : CP Blood Pressure : / mmHG Vent. Rate : 101 BPM Atrial Rate : 101 BPM P-R Int : 156 ms QRS Dur : 078 ms QT Int : 336 ms P-R-T Axes : 053 027 042 degrees QTc Int : 435 ms Sinus tachycardia with Premature supraventricular complexes and with frequent Premature ventricular c omplexes Otherwise normal ECG Confirmed by BETTY SHELDON, SIMIN ([id number]), market editor SUNSHINE STODDARD ([id number]) on 04/14/2018 10:53:26 AM Referred By: FAWAD Confirmed By:SIMIN HERNÁNDEZ MD
--- NOTE | 2018-04-11 20:19 | RAD_ITS ---
STUDY: X-RAY CHEST REASON FOR EXAM: Female, 82 years old. Chest pain TECHNIQUE: Single AP portable view of the chest. COMPARISON: Prior study of 12/05/2017 FINDINGS: protein specialist leads are present. Prominent bronchopulmonary markings are again noted, similar to the previous study. There is no evidence of jessica infiltrate or atelectasis. There is no demonstrated pleural abnormality. There is mild cardiac enlargement. Normal mediastinum and awilda. Normal visualized pulmonary arteries. There are calcified plaques of the aortic arch. There are diffuse degenerative changes of the visualized thoracic spine. There is a tendon anchor in the right humeral head. There is no demonstrated abnormality of the visualized soft tissue structures of the upper abdomen. RAD/Chest 1 View (Portable) IMPRESSION: 1. Prominent bronchopulmonary marking pattern of the lungs, similar to the previous study. 2. Mild cardiomegaly. 3. Calcified plaques of the aortic arch. 4. Degenerative changes of the visualized thoracic spine. 5. No acute cardiopulmonary disease process is seen. Electronically Signed: Mendoza Walters MD at 21:04 EDT , Service support ,
[2018-04-11] MEDS: Morphine 4 MG/ML Syringe IV (20:51)
[2018-04-11] MEDS: Aspirin 81 MG TAB.CHEW 324 MG PO (20:51)
[2018-04-11] MEDS: Ondansetron 4 MG/2 ML Vial IV (20:51)
[2018-04-11] MEDS: 0.9% Normal Saline 1,000 ML 150 ML IV (20:52)
[2018-04-11 20:56] VITALS: BP 172/87; PULSE 89; RESP 24; O2SAT 93; O2SAT 94
[2018-04-11 21:13] LABS: Absolute Lymphocyte Count 1.26 X10^3/ul (0.83-4.51); Absolute Neutrophil Count 7.2 X10^3/uL (2.0-7.7); Basophil# 0.05 X10^3/uL; Basophil% 0.5 % (0-1); Eosinophil# 0.23 X10^3/uL; Eosinophils% 2.3 % (0-5); Hematocrit 41.3 % (37-47); Hemoglobin 13.4 g/dl (12.0-15.0); Lymphocyte # 1.26 X10^3/ul (4.0); Lymphocyte % 12.7 % (19-41); Mean Corp Hgb Conc 32.4 g/gl (32-36); Mean Corpuscular Hgb 28.2 pg (27.0-32.0); Mean Corpuscular Volume 86.8 fL (81-99); Mean Platelet Vol. 10.2 fl (6.2-12.0); Monocyte# 1.15 X10^3/uL; Monocyte% 11.6 % (0-10); Neutrophil # 7.19 X10^3/uL (2.7-7.7); Neutrophil % 72.8 % (47-70); Platelet Count 262 K/mm3 (150-450); RBC Distribution Width CV 15.3 % (11.6-14.6); Red Blood Count 4.76 M/mm3 (4.2-5.4); White Blood Count 9.9 K/mm3 (4.4-11.0)
[2018-04-11 21:14] LABS: POSITIVE COUNT NO; POSITIVE DIFFERENTIAL NO; POSITIVE MORPHOLOGY NO
[2018-04-11 21:27] LABS: D-Dimer Quantitative (DVT/PE) 0.85 FEU/ug/m (0.27-0.49)
[2018-04-11 21:28] LABS: Lipase 154 U/L (73-393)
--- NOTE | 2018-04-11 21:28 | ED.RN ---
D-DIMER 0.[address] HARRIS. VERBALIZED UNDERSTANDING
[2018-04-11 21:32] LABS: Anion Gap 11 (5-15); BUN 35 mg/dL (7-18); BUN/Creat Ratio 26.7 RATIO (10-20); Calcium,Total 9.1 mg/dL (8.5-10.1); Chloride 106 mmol/L (98-107); Creatinine, Serum 1.31 mg/dL (0.55-1.02); EST Glomerular Filtration Rate 42 mL/min (>60); Est Glom Filt Rate - Afr Amer 50 mL/min (>60); Estimated Creatinine Clearance 32.06 ml/min; Glucose 93 mg/dL (74-106); Potassium 5.1 mmol/L (3.5-5.1); Sodium Level 140 mmol/L (136-145)
--- NOTE | 2018-04-11 21:39 | CT_ITS ---
STUDY: CTA CHEST REASON FOR EXAM: Female, 82 years old. Chest pain. RADIATION DOSAGE (If Supplied By Facility): CTDIvol = ( 20.05 ) mGy, DLP = ( 772.13 ) mGycm TECHNIQUE: The examination was performed with the intravenous administration of 100ML ml of Isovue 370 contrast material. Post-processing of the angiographic images was performed, with multiplanar reformation and 3D reconstruction. Individualized dose optimization techniques were used for this CT. COMPARISON: December 03, 2017 FINDINGS: There are bilateral emphysematous changes present. Within the mid and lower lungs there are prominent subpleural interstitial markings associated with scattered honeycombing. There is a calcified nodule within the left lower lobe. Normal enhancement of the main pulmonary artery and right and left pulmonary arteries. Normal enhancement of the bilateral peripheral pulmonary arteries. There is no demonstrated pulmonary embolism. There is atherosclerotic calcification of the aortic arch and descending thoracic aorta. There is no demonstrated aortic dissection. There are calcifications of the coronary arteries. There are grossly stable prominent mediastinal lymph nodes. Normal visualized trachea and bronchi. Normal chest wall structures. There are degenerative changes of thoracic spine. Normal visualized upper abdomen. CT/CTA Chest W/WO Contrast IMPRESSION: No demonstrated pulmonary embolism or arterial dissection. Bilateral emphysematous changes and pulmonary fibrosis. Atherosclerosis. Electronically Signed: Tracey Villatoro MD at 23:14 EDT Tel , Service support ,
[2018-04-11 22:31] VITALS: BP 162/76; PULSE 87; RESP 16; O2SAT 94
[2018-04-11 23:00] VITALS: BP 162/76; PULSE 85; RESP 22; O2SAT 95
--- NOTE | 2018-04-11 23:17 | ED.DCSUM_ITS ---
- ER Visit Summary Date of Service: 04/11/18 Chief Complaint: [] History of Present Illness: The patient is a 82 F [presents the emergency department complaint of chest discomfort that started yesterday. Patient describes a sharp dull pain that she rates as a 10 out of 10 in her left chest that radiates straight through to her back. Patient feels mildly short of breath. Patient states that it does not seem to hurt more with deep breath. Patient denies any injury. She denies any fever. Patient states that she has a chronic cough in the morning when she first wakes up but nothing out of the ordinary. Patient denies recent travel or surgery. Patient is never experienced discomfort like this before. She denies any nausea or vomiting. She denies any diaphoresis. She denies pain radiating into the neck, jaw, or arm.] Physical Examination: [HEENT-PERRLA, EOMI. Cranial nerves II through XII grossly intact. TMs clear. Mucous membranes moist. No adenopathy. Cardiovascular-regular rate and rhythm without murmur or ectopy Lungs-clear to auscultation, chest wall stable without crepitus or subcu emphysema. I am unable to reproduce patient's pain with palpation of the chest wall or back. Abdomen-normoactive bowel sounds, soft, nontender, no rebound or rigidity, no peritoneal signs. Extremities-intact ?4, normal range of motion, normal pulses, atraumatic] Test Results: [EKG obtained on arrival shows sinus rhythm with a ventricular rate of 101 bpm with occasional PACs and PVCs. CBC with differential obtained showed a white count of 9.9, hemoglobin 13, hematocrit 41, platelets 262. Chemistries unremarkable. BUN was 35 and creatinine was 1.31. Lipase was normal at 154. Troponin was 0.017. D-dimer was slightly elevated 0.85. Chest x-ray showed chronic changes otherwise nothing acute. Given the elevated d- dimer and complaint of sharp stabbing pain in the left chest was concern for PE versus possibility of dissection therefore CTA of the chest was obtained. And showed no evidence of PE or dissection.] Emergency Department Course and Treatment: [Patient was given aspirin in the emergency department was given morphine 4 mg IV. She had good pain relief with that and currently rates her pain a 4 out of 10.] Treatment Plan: Patient will be admitted for further workup and evaluation of her chest pain [as etiology is unclear at this time. Chest pain somewhat atypical but given her age and risk factors recommended admission. Also patient having received IV dye and the fact that she only has 1 kidney 1 at the continue hydration.] Disposition: [Admit] Impression: [Chest pain-rule out acute coronary syndrome] This note was generated with [employer] dictation software. It may contain incorrect words, spelling, and punctuation that were not noted in review of the chart prior to signing ED Disposition - Plan for ED Patient: Chief Complaint: Chest Pain Referrals: Dustin Mendieta MD [Primary Care Provider] -
--- NOTE | 2018-04-11 23:58 | HP.PCM_ITS ---
Problem List (1) Chest pain Status: Acute Qualifiers: Chest pain type: unspecified Qualified Code(s): R07.9 - Chest pain, unspecified (2) Chronic respiratory failure with hypoxia Status: Chronic (3) Obesity, morbid, BMI 40.0-49.9 Status: Chronic (4) History of tobacco use Status: Chronic Comment: quit 1994 (5) Gout Status: Chronic Qualifiers: Gout site: unspecified site Gout etiology: unspecified cause Chronicity: unspecified Qualified Code(s): M10.9 - Gout, unspecified (6) Hypertension Status: Chronic Qualifiers: Hypertension type: essential hypertension Qualified Code(s): I10 - Essential (primary) hypertension (7) History of TIA (transient ischemic attack) Status: Chronic Comment: 1998 (8) History of kidney cancer Status: Chronic (9) CKD (chronic kidney disease) Status: Chronic Qualifiers: Chronic kidney disease stage: stage 3 (moderate) Qualified Code(s): N18.3 - Chronic kidney disease, stage 3 (moderate) History of Present Illness Date of Admission: 04/11/18 Chief Complaint: Chest pain The patient is a 82 y/o w/ PMHx: Obesity, History of Tobacco use, Gout, Chronic COPD with Chronic hypoxic respiratory failure (2L NC), Hypertension, Hx TIA, History of Renal CA, CKD stage III (baseline Cr 1.4) who presents to the [facility] ED on 04/11/18 with history of onset mild dull discomfort underneath the left breast radiating toward the back initially minimal in nature, 1-2 out of 10 starting the day prior progressively worsening and becoming sharp, stabbing in nature possibly worsened with movement as son noted on the way to the emergency room going over the railroad tracks because worsened discomfort with no associated dyspnea, nausea, emesis or diaphoresis. In the emergency room patient noted that chest discomfort had been 10/10 upon initial ED presentation however following IV morphine it is now currently 4/10. In the ED work-up included T 98 , heart rate 89, BP initially 188/129--> 162/76, respiratory rate 18, 93% on 2 L nasal cannula, CBC with WBC 9.9, hemoglobin 13.4, platelet 262 without left shift, d-dimer is 0.85, BMP with BUN/creatinine 35/1.31, troponin 0 0.017, lipase 154, chest x-ray with chronic changes, mild cardiomegaly, CTPA with no evidence of PE or arterial dissection, bilateral emphysematous changes and pulmonary fibrosis, atherosclerosis. In the ED patient administered aspirin, morphine, Zofran, normal saline. Past Medical History Past Medical History (Chronic Problems): Chronic Problems (Last Reviewed 04/06/18 @ 10:57 by Wendy Carter) Chronic respiratory failure with hypoxia (Chronic) Obesity, morbid, BMI 40.0-49.9 (Chronic) History of tobacco use (Chronic) quit 1994 Gout (Chronic) Hypoxia (Chronic) COPD exacerbation (Chronic) Hypertension (Chronic) History of TIA (transient ischemic attack) (Chronic) 1998 History of kidney cancer (Chronic) CKD (chronic kidney disease) (Chronic) Medical History: Medical History (Last Reviewed 04/06/18 @ 10:57 by Wendy Carter) Acute respiratory failure with hypoxia (Acute) J96.01 Obesity, morbid, BMI 40.0-49.9 (Chronic) E66.01 History of tobacco use (Chronic) Z87.891 quit 1994 Gout (Chronic) M10.9 Hypoxia (Chronic) R09.02 COPD exacerbation (Chronic) J44.1 Hypertension (Chronic) I10 History of TIA (transient ischemic attack) (Chronic) 1998 History of kidney cancer (Chronic) Z85.528 CKD (chronic kidney disease) (Chronic) N18.9 SOB (shortness of breath) (Acute) R06.02 Acute sinusitis J01.90 Biceps tendonitis M75.20 Biliary colic K80.50 Cancer of right kidney 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 Cough R05 Disorder of bone density and structure, unspecified M85.9 Gallstones K80.20 Impingement syndrome of left shoulder M75.42 Influenza A J10.1 Left rotator cuff tear M75.102 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 Skin neoplasm D49.2 Strain of muscle(s) and tendon(s) of the rotator cuff of left shoulder, initial encounter S46.012A DJD (degenerative joint disease) M19.90 Kidney disease N28.9 Stasis dermatitis I87.2 Venous insufficiency I87.2 Elbow fracture, right S42.401A Allergies clindamycin [From Cleocin] Allergy (Verified 04/11/18 20:07) Unknown oxycodone HCl [From OxyContin] Allergy (Verified 04/11/18 20:07) Anaphylaxis Sulfa (Sulfonamide Antibiotics) Allergy (Verified 04/11/18 20:07) Anaphylaxis vancomycin Allergy (Verified 04/11/18 20:07) Hives guaifenesin [From Entex LA] Adverse Reaction (Verified 04/11/18 20:07) Unknown phenylephrine [From Entex LA] Adverse Reaction (Verified 04/11/18 20:07) Unknown phenylpropanolamine [From Entex LA] Adverse Reaction (Verified 04/11/18 20:07) Unknown BETA BLOCKERS Adverse Reaction (Uncoded 04/11/18 20:07) Unknown Home Medications: Ambulatory Orders Medication Instructions Recorded Estrogens, Conjugated [Premarin] 0.3 mg PO DAILY 04/04/15 Hydrochlorothiazide [Hctz] 25 mg PO DAILY 04/04/15 MedroxyPROGESTERone [Provera] 5 mg PO DAILY 05/18/15 Felodipine [Plendil] 10 mg PO DAILY 12/02/17 Oxygen, Home [Home Oxygen] 2 lpm NASAL CONT #1 unit 12/06/17 Albuterol Inhaler [Ventolin Hfa 2 puff INHALATION Q6H PRN PRN 04/11/18 (SP)] Budesonide/Formoterol 160/4.5 2 puff INHALATION BID 04/11/18 [Symbicort 160/4.5 Mcg Inhaler (SP)] Surgical History: Surgical History (Last Reviewed 04/06/18 @ 10:57 by Wendy Carter) H/O rotator cuff surgery Z98.890 right History of appendectomy Z90.49 age 18 History of left knee replacement Z96.652 2007 History of nephrectomy Z90.5 1994 for cancer History of total right knee replacement Z96.651 2010 Hx of cholecystectomy Z90.49 2016 Hx of removal of ovary Surgical History: - - Tonsillectomy, appendectomy, cholecystectomy, bilateral shoulder rotator cuff repair, right elbow fracture with surgery with pin in place, bilateral total knee replacement. Renal cell carcinoma, Surgery for SBO , Single salpingectomy and oophorectomy for ectopic . Psychiatric History: No pertinent psych hx [employer] History: ectopic Lives: With Family - Lives with her youngest son. Smoking Status: Former smoker - Quit 1994, notes ~ < 1/2 ppd since youth. Tobacco Use: Non-smoker Alcohol: None Drugs: None - *Family History Paternal Family History: Family History (Last Reviewed 04/06/18 @ 10:57 by Wendy Carter) Mother CAD (coronary artery disease) Father Colon cancer History Items: Cancer - Pancreatic CA, age 3838 years old., Diabetes, Heart Disease, Hypertension Maternal Family History: Family History (Last Reviewed 04/06/18 @ 10:57 by Wendy Carter) Mother CAD (coronary artery disease) Father Colon cancer History Items: Heart Disease, Hypertension Review of Systems Constitutional: Reports: Weakness, Fatigue. Denies: Chills, Fever, Weight Change HEENT: Denies: Head Aches, Sinus Congestion, Sinus Drainage Cardiovascular: Reports: Chest Pain, Chest Pressure. Denies: Chest Tightness, Edema, Heaviness, Light Headedness, Orthopnea, Palpitations, Syncope Respiratory: Reports: Shortness of breath upon exertion. Denies: Cough, Shortness of breath at rest, Sputum production Gastrointestinal: Denies: Abdominal Pain, Nausea, Vomiting Genitourinary: Denies: Dysuria Musculoskeletal: Reports: Back Pain. Denies: Joint Pain, Joint Tenderness Skin: Denies: Rash, Wounds Neurological: Denies: Numbness, Tingling, Focal weakness Psychiatric: Denies: Anxiety, Depression, Homicidal Ideations, Suicidal Ideations Hematologic/ Lymphatic: Denies: Easy Bruising, Easy Bleeding VTE Information - Inpt Only VTE Present on Admission: No VTE Mechan Device Prophylaxis: SCD's VTE Pharm Prophylaxis ordered?: Yes Patient Problems: Active and Suspected Problems (Last Reviewed 04/06/18 @ 10:57 by Wendy Carter ) Chest pain (Acute) Subjective: Seated upright in the ED bed, notes chest pain has improved since initial presentation, still 3-4/10. Objective: Physical Examination: General: awake, alert, oriented x 3 and cooperative, seated upright in the ED bed in no apparent distress, notes chest pain improved, still 3-4/10. Skin: normal color, turgor, no icterus, cyanosis. HEENT: AT/NC, EOMI, PERRLA, MMM, no carotid bruits or JVD noted. Lungs: Diminished BS BL bases, moderate effort, chronic fibrotic base crackles, no wheezing. Heart: Regular rate and rhythm; no gallop, rub audible. Abdomen: soft, morbidly obese, NTTP, ND, normal BS, no HSM; however, habitus makes examination difficult. Extremities: no cyanosis, clubbing, BL ankle non-pitting edema. Neurological: patient awake, alert, oriented x 3; cognitive function intact; pupils equally reactive to light and accomodation; cranial nerves II-XII grossly normal, moving all 4 extremities, no focal deficits, strength moderately to severely globally decreased secondary to acute presentation. Psychiatric: affect appears normal, no acute evidence of depressive or anxiety feelings. - Physical Exam Vital Signs Temp Pulse Resp BP Pulse Ox 98.0 F 85 22 H 162/76 H 95 04/11/18 20:04 04/11/18 23:00 04/11/18 23:00 04/11/18 23:00 04/11/18 23:00 Oxygen Flow Rate (L/min) 2 Oxygen Delivery Method Nasal Cannula Weight: 250 lb Body Mass Index (BMI) 40.3 Laboratory Tests Past 24 Hrs 04/11/18 04/11/18 04/11/18 21:00 21:00 21:00 WBC 9.9 RBC 4.76 Hgb 13.4 Hct 41.3 MCV 86.8 MCH 28.2 MCHC 32.4 RDW 15.3 H RDW Differential 49.0 H Plt Count 262 MPV 10.2 Immature Gran % (Auto) 0.100 Neut % (Auto) 72.8 H Lymph % (Auto) 12.7 L Mcduffie % (Auto) 11.6 H Eos % (Auto) 2.3 Baso % (Auto) 0.5 Absolute Neuts (auto) 7.2 Absolute Lymphs (auto) 1.26 Total Counted Not Reportable D-Dimer Quant (PE/DVT) 0.85 H* Sodium 140 Potassium 5.1 Chloride 106 Carbon Dioxide 23.0 Anion Gap 11 BUN 35 H Creatinine 1.31 H Estim Creat Clear Calc 32.06 Est GFR (MDRD) Af Amer 50 L Est GFR (MDRD) Non-Af 42 L BUN/Creatinine Ratio 26.7 H Glucose 93 Calcium 9.1 Troponin I 0.017 Lipase 04/11/18 21:00 WBC RBC Hgb Hct MCV MCH MCHC RDW RDW Differential Plt Count MPV Immature Gran % (Auto) Neut % (Auto) Lymph % (Auto) Mcduffie % (Auto) Eos % (Auto) Baso % (Auto) Absolute Neuts (auto) Absolute Lymphs (auto) Total Counted D-Dimer Quant (PE/DVT) Sodium Potassium Chloride Carbon Dioxide Anion Gap BUN Creatinine Estim Creat Clear Calc Est GFR (MDRD) Af Amer Est GFR (MDRD) Non-Af BUN/Creatinine Ratio Glucose Calcium Troponin I Lipase 154 Assessment/Plan All Active Problems (Last Reviewed 04/06/18 @ 10:57 by Wendy Carter) Chest pain (Acute) Daytime hypersomnia (Acute) Acute respiratory failure with hypoxia (Acute) SOB (shortness of breath) (Acute) The patient is a 82 y/o w/ PMHx: Obesity, History of Tobacco use, Gout, Chronic COPD with Chronic hypoxic respiratory failure (2L NC), Hypertension, Hx TIA, History of Renal CA, CKD stage III (baseline Cr 1.4) who presents to the [facility] ED on 04/11/18 with history of onset mild dull discomfort underneath the left breast radiating toward the back initially minimal in nature, 1-2 out of 10 starting the day prior progressively worsening and becoming sharp, stabbing in nature possibly worsened with movement as son noted on the way to the emergency room going over the railroad tracks because worsened discomfort. (1) Atypical Chest Pain: In the ED work-up included T 98, heart rate 89, BP initially 188/129--> 162/76, respiratory rate 18, 93% on 2 L nasal cannula, CBC with WBC 9.9, hemoglobin 13.4, platelet 262 without left shift, d-dimer is 0.85 , BMP with BUN/creatinine 35/1.31, troponin 0 0.017, lipase 154, chest x-ray with chronic changes, mild cardiomegaly, CTPA with no evidence of PE or arterial dissection, bilateral emphysematous changes and pulmonary fibrosis, atherosclerosis. Will admit to PCU, place on a monitored bed to assure no acute myocardial infarction with serial cardiac enzymes and EKGs. Patient is unable to perform exercise thus will proceed with AM nuclear stress testing. ASA, NG, morphine. FLP in AM. Mag pending. (2) Chronic COPD w/ Chronic Hypoxic Respiratory Failure: Will maintain on home oxygen supplementation, continue ATC duonebs, PRN albuterol, HOB, IS parameters. (3) Hypertension: Continue home regimen including felodipine, hydrochlorothiazide, PRN Lopressor. (4) Hx Renal CA, Chronic Kidney Disease Stage III: s/p Unilateral Nephrectomy. Admission BUN/Cr 35/1.31, baseline renal function 1.4, repeat BMP in AM. Follows w/ [facility] at [place]. (5) Morbid Obesity: Weight loss and lifestyle changes encouraged, nutrition consulted for education. (6) Hx TIA/CVD: Maintain on asa, BP regimen with goal <140/90, not on statin. (7) GERD: Famotidine. (8) DVT Prophylaxis: SCDs, heparin. (9) CODE status: Discussed CODE status at length including difference between FULL code, DNR-CCA and DNR-CC status. Patient has living will and HCPOA in place. Following discussions about the differences in these status, requested FULL code status. Advanced Care Planning Face to Face Time: 17 minutes. Code Visit OBSV E&M: 03657 Initial observation care L3 Procedures: 57606 Advncd Care Plan 30 Min
--- NOTE | 2018-04-12 00:08 | NURSING ---
Called ED water registrarGeena CARR at this time to confirm Pt okay to come to PCU.
[2018-04-12] MEDS: Ondansetron 4 MG/2 ML Vial IV (00:21)
--- NOTE | 2018-04-12 00:29 | EKG12_ITS ---
Test Reason : CP ADMIT Blood Pressure : / mmHG Vent. Rate : 075 BPM Atrial Rate : 075 BPM P-R Int : 172 ms QRS Dur : 088 ms QT Int : 396 ms P-R-T Axes : 063 040 042 degrees QTc Int : 442 ms Sinus rhythm with occasional Premature ventricular complexes Low voltage QRS (limb leads) Confirmed by BETTY SHELDON, SIMIN ([id number]), supervising editor news reel SUNSHINE STODDARD ([id number]) on 04/14/2018 11:29:45 AM Referred By: DR MCCLAIN Confirmed By:SIMIN HERNÁNDEZ MD
[2018-04-12 00:31] VITALS: BMI 40.8; BMI 40.9
[2018-04-12 00:38] VITALS: PULSE 88
[2018-04-12 00:40] VITALS: BP 152/69; PULSE 80; RESP 18; TEMP 36.5; O2SAT 95
[2018-04-12 01:12] LABS: Magnesium 1.8 mg/dL (1.6-2.6)
[2018-04-12] MEDS: 0.9% Normal Saline 1,000 ML 75 ML IV (01:17)
[2018-04-12 03:55] VITALS: PULSE 82
[2018-04-12 04:45] LABS: International Normalized Ratio 1.1; Prothrombin Time (Protime)PT. 14.3 SECONDS (11.7-14.9)
[2018-04-12 04:46] LABS: Partial Thromboplast Time 28.4 Seconds (24.1-36.2)
[2018-04-12 04:54] LABS: Hematocrit 42.5 % (37-47); Hemoglobin 13.6 g/dl (12.0-15.0); Mean Corpuscular Hgb 28.2 pg (27.0-32.0); Mean Corpuscular Volume 88.2 fL (81-99); Mean Platelet Vol. 10.2 fl (6.2-12.0); Platelet Count 248 K/mm3 (150-450); RBC Distribution Width CV 15.2 % (11.6-14.6); RBC Distribution Width SD 48.9 fl (35.1-43.9); Red Blood Count 4.82 M/mm3 (4.2-5.4); White Blood Count 8.8 K/mm3 (4.4-11.0)
[2018-04-12 05:35] VITALS: BP 149/84; PULSE 83; RESP 18; TEMP 36.4; O2SAT 93
[2018-04-12 05:37] LABS: Scan Indicated on CBC? Y/N NO
[2018-04-12] MEDS: Aspirin E.C. 81 MG Tablet PO (05:37)
[2018-04-12] MEDS: proMETHazine 25 MG/ML Syringe 12.5 MG IV (05:42)
[2018-04-12 07:05] LABS: Anion Gap 12 (5-15); BUN 31 mg/dL (7-18); BUN/Creat Ratio 24.2 RATIO (10-20); Calcium,Total 8.7 mg/dL (8.5-10.1); Chloride 106 mmol/L (98-107); Cholesterol 79 mg/dL (200); Creatinine, Serum 1.28 mg/dL (0.55-1.02); EST Glomerular Filtration Rate 43 mL/min (>60); Est Glom Filt Rate - Afr Amer 52 mL/min (>60); Estimated Creatinine Clearance 32.82 ml/min; Glucose 91 mg/dL (74-106); High Density Lipoprotein 46 mg/dL; Potassium 4.6 mmol/L (3.5-5.1); Sodium Level 140 mmol/L (136-145); Triglycerides 49 mg/dL; Very Low Density Lipoprotein 10 mg/dL (5-40)
[2018-04-12] MEDS: Acetaminophen 325 MG Tablet 650 MG PO (09:32)
[2018-04-12] MEDS: amLODIPine 10 MG Tablet PO (09:35)
[2018-04-12] MEDS: hydroCHLOROthiazide 25 MG Tablet PO (09:35)
--- NOTE | 2018-04-12 09:50 | STRESSREP_ITS ---
Stress Test Report Date: 04/12/2018 Procedure: Pharmacologic stress nuclear imaging study Indications: Chest pain Consent: Per the patient Procedure: The patient underwent pharmacologic (Regadenoson) evaluation with a peak heart rate of 105 beats per minute (75 predicted maximal heart rate) and a peak blood pressure of 160/100 mmHg. The baseline ECG demonstrated normal sinus rhythm. The peak pharmacologic ECG demonstrated no obvious ECG changes. Was a rare PVC during recovery. There was no complaint of chest discomfort during pharmacologic infusion or recovery. The examination was discontinued secondary to completion of protocol. Impression: 1. Pharmacologic (Regadenoson) evaluation 2. Peak pharmacologic ECG with no obvious ECG changes. 3. There was a rare PVC during recovery 4. Nuclear images pending Myocardial perfusion imaging study: Technique: The patient was injected with 15 millicuries of technetium 99m Cardiolite and subsequently rest SPECT Cardiolite nuclear imaging was obtained in the horizontal long, vertical long, and short axis views. The patient underwent pharmacologic (Regadenoson) evaluation with a peak heart rate of 105 beats per minute (75 % percent predicted maximal heart rate) and a peak blood pressure of 160/100 mmHg. The patient was injected with 45 millicuries of technetium 99m Cardiolite and subsequently stress SPECT Cardiolite nuclear imaging was obtained in the horizontal long, vertical long, and short axis views. A gated Cardiolite study at peak stress was obtained. Interpretation: Evaluation of the raw images suggest an element of body motion during image acquisition. Rest and stress SPECT Cardiolite nuclear imaging status post realignment and normalization correction demonstrate at rest areas of diminished tracer uptake in portions of the basal inferior septum, basal inferior, and basal inferolateral segments which appears to extend towards the mid inferior segments and status post stress appears to demonstrate improvement and/or resolution. There is end systolic thickening and brightening. The gated Cardiolite study demonstrates myocardial thickening and inward wall motion. The reported LVEF is 57 %. Impression: 1. Rest and stress SPECT currently nuclear imaging demonstrate an element of body motion during image acquisition and at rest myocardial perfusion changes which appear to improve and/or normalize following stress appearing compatible with body motion artifact and/or shifting soft tissue attenuation/artifact with no myocardial perfusion changes considered diagnostic for associated stress- induced myocardial ischemia. 2. The gated Cardiolite study reports an LVEF of 57 %. This note was generated with [employer] software. It may contain incorrect words, spelling, and punctuation that were not noted in checking the note before signing.
--- NOTE | 2018-04-12 11:48 | DCINST_ITS ---
- Discharge Diagnoses Current Active Problems: Current Active and Chronic Problems (Last Reviewed 04/06/18 @ 10:57 by Wendy Carter) Chronic respiratory failure with hypoxia (Chronic) Chest pain (Acute) You will use the following diet at home:: No restrictions Your food should be the consistency of: Regular Your liquids should be the consistency of: Regular/Thin Discharge Activity: Return to Normal Activity Weight Bearing Status: Weight bearing as tolerated Allergies/Adverse Reactions: Allergies clindamycin [From Cleocin] Allergy (Verified 04/11/18 20:07) Unknown oxycodone HCl [From OxyContin] Allergy (Verified 04/11/18 20:07) Anaphylaxis Sulfa (Sulfonamide Antibiotics) Allergy (Verified 04/11/18 20:07) Anaphylaxis vancomycin Allergy (Verified 04/11/18 20:07) Hives guaifenesin [From Entex LA] Adverse Reaction (Verified 04/11/18 20:07) Unknown phenylephrine [From Entex LA] Adverse Reaction (Verified 04/11/18 20:07) Unknown phenylpropanolamine [From Entex LA] Adverse Reaction (Verified 04/11/18 20:07) Unknown BETA BLOCKERS Adverse Reaction (Uncoded 04/11/18 20:07) Unknown Medications to take at Discharge Estrogens, Conjugated [Premarin] 0.3 mg PO DAILY 04/04/15 Hydrochlorothiazide [Hctz] 25 mg PO DAILY 04/04/15 MedroxyPROGESTERone [Provera] 5 mg PO DAILY 05/18/15 Felodipine [Plendil] 10 mg PO DAILY 12/02/17 Oxygen, Home [Home Oxygen] 2 lpm NASAL CONT #1 unit 12/06/17 Aspirin 325 mg PO DAILY@0800 04/12/18 Umeclidinium Brm/Vilanterol Tr [Anoro Ellipta 62.5-25 Mcg INH] 1 puff INHALATION DAILY 04/12/18 Primary Care Physician: Dustin Mendieta MD [Primary Care Provider] - Please follow up with your Primary Care Physician in: in 2 weeks Test Results: Test results from this visit will be discussed in further detail at your follow- up appointment, if applicable.
[2018-04-12 12:00] VITALS: PULSE 79
[2018-04-12 12:01] VITALS: BP 144/65; PULSE 84; RESP 18; TEMP 36.7; O2SAT 92
--- NOTE | 2018-04-14 19:07 | DS.PCM_ITS ---
Discharge Date and Diagnosis Date of Admission: 04/11/18 Date of Discharge: 04/12/18 - Primary Discharge Diagnosis #1 musculoskeletal chest pain #2 COPD #3 chronic hypoxic respiratory failure #4 hypertension - Secondary Discharge Diagnosis Chronic Problems (Last Reviewed 04/06/18 @ 10:57 by Wendy Carter) Chronic respiratory failure with hypoxia (Chronic) Obesity, morbid, BMI 40.0-49.9 (Chronic) History of tobacco use (Chronic) quit 1994 Gout (Chronic) Hypoxia (Chronic) COPD exacerbation (Chronic) Hypertension (Chronic) History of TIA (transient ischemic attack) (Chronic) 1998 History of kidney cancer (Chronic) CKD (chronic kidney disease) (Chronic) Hospital Course and Treatment Operations: None Procedures: Nuclear stress test Summary of Care Provided: The patient is a 82 year old F seen in the emergency room at [facility] with chief complaint of chest discomfort she described as a dull pain. Workup in the emergency room included an EKG which showed normal sinus rhythm with occasional PACs and PVCs, troponin was 0.017, d-dimer was 0.85, CT of the chest was obtained and showed no evidence of PE or abnormality. Patient was placed in observation status on Medr, cardiac enzymes were cycled and these remained negative, patient underwent a resting nuclear pharmacological stress test that was negative for reversible ischemia. On 04/12/18, patient was seen and examined felt to be in stable condition for discharge home Discharge Activity: Return to Normal Activity Weight Bearing Status: Weight bearing as tolerated Home Medications: Medications to take at Discharge Estrogens, Conjugated [Premarin] 0.3 mg PO DAILY 04/04/15 Hydrochlorothiazide [Hctz] 25 mg PO DAILY 04/04/15 MedroxyPROGESTERone [Provera] 5 mg PO DAILY 05/18/15 Felodipine [Plendil] 10 mg PO DAILY 12/02/17 Oxygen, Home [Home Oxygen] 2 lpm NASAL CONT #1 unit 12/06/17 Aspirin 325 mg PO DAILY@0800 04/12/18 Umeclidinium Brm/Vilanterol Tr [Anoro Ellipta 62.5-25 Mcg INH] 1 puff INHALATION DAILY 04/12/18 Primary Care Physician: Dustin Mendieta MD [Primary Care Provider] - Please follow up with your Primary Care Physician in: in 2 weeks Disposition: Home Minutes spent on discharge:: 25 Patient Condition:: Stable Medical Necessity - Tobacco Use Smoking Status: Former smoker - Quit 1994, notes ~ < 1/2 ppd since youth. Tobacco Use: Non-smoker Meaningful Use Info Meaningful Use Diagnoses (Choose all that apply): None applicable Code Visit OBSV E&M: 99152 Observation care discharge
--- NOTE | 2018-09-24 11:12 | CASEMGMT ---
BRUNO JEFFERY DC Phone Call. DC Date: 09/23/18 DC Disposition: Home LACE/STRATA: 19/12 DC Appointments made: yes LACE/STRATA: 19/12 Intro role of CM to patient via phone. Pt states she is doing well and has no questions re: dc instructions, f/u or prescriptions. Pt states she set up her medications last night and reviewed the pharmacy brochures. BRUNO JEFFERY thanked her for using [facility] and pt states she has no care improvement suggestions. Pt stated her care was excellent. Tony IBARRAN RN ACM
== END 2018-04-12 11:47 | disposition home or self-care (01) ==
LOC: ED 20:47 → PCU 23:51
PROVIDERS: Admitting Provider Family Medicine; Emergency Provider Emergency Medicine; Family Provider Family Medicine; PCP Family Medicine; Visit Provider Internal Medicine
DX: R07.89 Other chest pain (principal); R06.02 Shortness of breath; J96.11 Chronic respiratory failure with hypoxia; E66.01 Morbid (severe) obesity due to excess calories; M10.9 Gout, unspecified; I12.9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 chronic kidney disease with stage 1 through stage 4 chronic kidney disease, or unspecified chronic kidney disease; N18.3 Chronic kidney disease, stage 3 (moderate); Z68.41 Body mass index [BMI] 40.0-44.9, adult; Z71.3 Dietary counseling and surveillance; Z87.891 Personal history of nicotine dependence; Z85.528 Personal history of other malignant neoplasm of kidney; Z86.73 Personal history of transient ischemic attack (TIA), and cerebral infarction without residual deficits; Z79.899 Other long term (current) drug therapy; Z99.81 Dependence on supplemental oxygen; J44.9 Chronic obstructive pulmonary disease, unspecified
CPT/HCPCS: 36415; 71045; 71275; 78452; 80048; 80061; 83690; 83735; 84484; 85025; 85027; 85379; 85610; 85730; 93005; 93017; 96361; 96374; 96375; 97802; 99218; 99283; A9500; J7030; Q9967; A4216; G0378; J2405; J2785

== ENCOUNTER 2018-08-16 13:51 | Inpatient (IN) | payer MEDICARE, OTHER, SELFPAY ==
[2018-08-16] VITALS (14 sets, daily range): BP systolic 152–176; BP diastolic 65–98; PULSE 72–91; RESP 17–27; TEMP 36.5–36.9; O2SAT 91–96; BMI 41.7
--- NOTE | 2018-08-16 14:42 | EKG12_ITS ---
Test Reason : SOB Blood Pressure : / mmHG Vent. Rate : 075 BPM Atrial Rate : 075 BPM P-R Int : 186 ms QRS Dur : 082 ms QT Int : 380 ms P-R-T Axes : 063 084 052 degrees QTc Int : 424 ms Normal sinus rhythm Normal ECG Confirmed by ZACH MCCONNELL MD ([id number]), film or videotape editor SUNSHINE STODDARD ([id number]) on 08/20/2018 10:37:33 AM Referred By: CATARINO Confirmed By:ZACH MCCONNELL MD
--- NOTE | 2018-08-16 14:44 | ED.VISSUMM ---
- ER Visit Summary Date of Service: 08/16/18 Chief Complaint: Shortness of breath and dizziness History of Present Illness: The patient is a 82 F with history of renal cancer, status post right nephrectomy, COPD and hypertension who presents for 2 days of shortness of breath and dizziness. Patient states every time she gets up and walks a few steps, she becomes short of breath and feels like she is going to pass out. It is improved if she sits down. She has associated nausea. She denies fever, chest pain, abdominal pain, back pain, vomiting, diarrhea, urinary symptoms. 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 She states a week ago she had blood work done by her primary care doctor that showed worsening renal function. She has been referred to a urologist. Her blood pressure has been increased recently. She is a former smoker. Patient is on 4 L nasal cannula oxygen at all times at home. Physical Examination: Vital signs: afebrile, hemodynamically stable, no hypoxia on home oxygen General: well nourished, well developed, in no distress Skin: warm, dry, no rash, no pallor HEENT: normocephalic and atraumatic; PERRL, EOMI, moist mucous membranes Cardiovascular: regular rate and rhythm without murmurs, no peripheral edema, 2+ pulses all distal extremities Respiratory: No increased work of breathing, lungs show bibasilar rales Abdominal: Abdomen is soft, nontender with normoactive bowel sounds, no guarding or rebound, no masses MSK: Moves all extremities, no deformities, normal strength Neuro: Awake and alert, oriented ?4. No facial droop, sensation and motor function intact and symmetric Test Results: Clinical Impression(s) from Imaging Studies Chest X-Ray 08/16/18 15:02 IMPRESSION: Diffuse increased interstitial markings suspicious for either edema and/or atypical infiltrates superimposed on underlying chronic lung disease. There are bilateral lower lobe opacities left greater than right which suspicious for effusions and atelectasis. Underlying infection is not excluded. Mild cardiomegaly. Electronically Signed: Zonia Foreman MD at 15:43 EST Tel , Service support , Abnormal Lab Results 08/16/18 08/16/18 08/16/18 15:00 15:00 15:00 WBC 6.5 RBC 4.45 Hgb 12.9 Hct 41.0 MCV 92.1 MCH 29.0 MCHC 31.5 L RDW 16.1 H RDW Differential 54.8 H Plt Count 247 MPV 10.1 Immature Gran % (Auto) 0.000 Neut % (Auto) 74.6 H Lymph % (Auto) 15.0 L [place] % (Auto) 8.9 Eos % (Auto) 0.9 Baso % (Auto) 0.6 Absolute Neuts (auto) 4.9 Absolute Lymphs (auto) 0.98 Total Counted Not Reportable PT 15.1 H INR 1.2 APTT 29.0 Sodium 145 Potassium 4.3 Chloride 112 H Carbon Dioxide 27.0 Anion Gap 6 BUN 29 H Creatinine 1.63 H Estim Creat Clear Calc 48.69 Est GFR (MDRD) Af Amer 39 L Est GFR (MDRD) Non-Af 32 L BUN/Creatinine Ratio 17.8 Glucose 96 Calcium 8.7 Troponin I 0.034 B-Natriuretic Peptide 08/16/18 15:00 WBC RBC Hgb Hct MCV MCH MCHC RDW RDW Differential Plt Count MPV Immature Gran % (Auto) Neut % (Auto) Lymph % (Auto) [place] % (Auto) Eos % (Auto) Baso % (Auto) Absolute Neuts (auto) Absolute Lymphs (auto) Total Counted PT INR APTT Sodium Potassium Chloride Carbon Dioxide Anion Gap BUN Creatinine Estim Creat Clear Calc Est GFR (MDRD) Af Amer Est GFR (MDRD) Non-Af BUN/Creatinine Ratio Glucose Calcium Troponin I B-Natriuretic Peptide 1349.2 H Medications Given Discontinued Medications Nitroglycerin (Nitrostat) 0.4 mg SUBLINGUAL X1 ONE Stop: 08/16/18 15:48 Emergency Department Course and Treatment: Patient presents for shortness of breath and dizziness on mild exertion. Her lung exam shows bibasilar rales, with history and exam concerning for CHF. Chest x-ray was consistent with cardiomegaly and CHF. EKG showed a sinus rhythm with no ischemic changes. Labs showed no leukocytosis, anemia, did show renal insufficiency with a creatinine of 1.6. Troponin was within normal limits at 0.034. BNP significantly elevated from patient's baseline at 1349. Patient was hypertensive in the emergency department and was given a dose of sublingual nitroglycerin to reduce afterload. Because of her solitary kidney with renal insufficiency, Lasix was not initiated in the emergency department and was deferred to hospitalist. Patient was discussed with Dr. Dowling for further workup and management of new onset CHF in a patient with acute renal insufficiency and a solitary kidney. Treatment Plan: [] Disposition: [] Impression: acute CHF, renal insufficiency, solitary kidney. This note was generated with [employer] dictation software. It may contain incorrect words, spelling, and punctuation that were not noted in review of the chart prior to signing ED Disposition - Plan for ED Patient: Chief Complaint: Shortness of Breath
--- NOTE | 2018-08-16 15:02 | RAD_ITS ---
STUDY: X-RAY CHEST REASON FOR EXAM: Female, 82 years old. Shortness of breath, weakness TECHNIQUE: PA and lateral views of the chest. COMPARISON: April 11, 2018 chest x-ray FINDINGS: There is a pattern of diffuse increased interstitial markings. Since prior study there is opacity in the left lower lobe. There is blunting of the right costophrenic angle. There is mild cardiac enlargement. Normal mediastinum and awilda. Normal visualized pulmonary arteries. There is atherosclerotic calcification of the aortic arch with tortuosity. There are diffuse degenerative changes of the visualized thoracic spine. Normal visualized ribs, clavicles, and shoulders. There is no demonstrated abnormality of the visualized soft tissue structures of the upper abdomen. RAD/Chest PA and Lateral IMPRESSION: Diffuse increased interstitial markings suspicious for either edema and/or atypical infiltrates superimposed on underlying chronic lung disease. There are bilateral lower lobe opacities left greater than right which suspicious for effusions and atelectasis. Underlying infection is not excluded. Mild cardiomegaly. Electronically Signed: Zonia Foreman MD at 15:43 EST Tel , Service support ,
[2018-08-16 15:10] LABS: Absolute Lymphocyte Count 0.98 X10^3/ul (0.83-4.51); Absolute Neutrophil Count 4.9 X10^3/uL (2.0-7.7); Basophil# 0.04 X10^3/uL; Basophil% 0.6 % (0-1); Eosinophil# 0.06 X10^3/uL; Eosinophils% 0.9 % (0-5); Hemoglobin 12.9 g/dl (12.0-15.0); Lymphocyte # 0.98 X10^3/ul (4.0); Mean Corp Hgb Conc 31.5 g/gl (32-36); Mean Corpuscular Volume 92.1 fL (81-99); Mean Platelet Vol. 10.1 fl (6.2-12.0); Monocyte# 0.58 X10^3/uL; Monocyte% 8.9 % (0-10); Neutrophil # 4.87 X10^3/uL (2.7-7.7); Neutrophil % 74.6 % (47-70); POSITIVE COUNT NO; POSITIVE DIFFERENTIAL NO; POSITIVE MORPHOLOGY NO; Platelet Count 247 K/mm3 (150-450); RBC Distribution Width CV 16.1 % (11.6-14.6); RBC Distribution Width SD 54.8 fl (35.1-43.9); Red Blood Count 4.45 M/mm3 (4.2-5.4); White Blood Count 6.5 K/mm3 (4.4-11.0)
[2018-08-16 15:24] LABS: Anion Gap 6 (5-15); BUN 29 mg/dL (7-18); BUN/Creat Ratio 17.8 RATIO (10-20); Calcium,Total 8.7 mg/dL (8.5-10.1); Chloride 112 mmol/L (98-107); Creatinine, Serum 1.63 mg/dL (0.55-1.02); EST Glomerular Filtration Rate 32 mL/min (>60); Est Glom Filt Rate - Afr Amer 39 mL/min (>60); Estimated Creatinine Clearance 48.69 ml/min; Glucose 96 mg/dL (74-106); Potassium 4.3 mmol/L (3.5-5.1); Sodium Level 145 mmol/L (136-145)
[2018-08-16 15:49] LABS: International Normalized Ratio 1.2; Prothrombin Time (Protime)PT. 15.1 SECONDS (11.7-14.9)
[2018-08-16] MEDS: Furosemide 40 MG/4 ML Vial IV (18:30)
[2018-08-16] MEDS: amLODIPine 5 MG Tablet PO (18:30)
--- NOTE | 2018-08-16 18:30 | HP.PCM_ITS ---
Problem List (1) Acute diastolic (congestive) heart failure Status: Acute (2) Acute and chronic respiratory failure with hypoxia Status: Acute (3) Chronic renal failure, stage 3 (moderate) Status: Chronic Comment: 3-4 (4) Chronic respiratory failure with hypoxia Status: Chronic (5) Chest pain Status: Resolved Qualifiers: (6) Daytime hypersomnia Status: Chronic (7) Obesity, morbid, BMI 40.0-49.9 Status: Chronic (8) History of tobacco use Status: Inactive Comment: quit 1994 (9) Gout Status: Chronic Qualifiers: (10) COPD exacerbation Status: Resolved (11) Hypertension Status: Chronic Qualifiers: (12) History of TIA (transient ischemic attack) Status: Chronic Comment: 1998 (13) History of kidney cancer Status: Chronic Comment: S/P nephrectomy (14) Hormone replacement therapy Status: Chronic (15) Pulmonary hypertension Status: Acute Comment: PA pressure 57 in November 2017 History of Present Illness Date of Admission: 08/16/18 Chief Complaint: SOB and lightheadedness with nausea and decreased appetite The patient is a 82 year old F with a past medical history of hypertension, renal cell carcinoma with history of nephrectomy, chronic hormone replacement therapy, chronic renal failure stage III?4, morbid obesity, history of TIA, chronic respiratory failure with hypoxemia on home O2 and remote history of tobacco use (quit in 1994) who presented to the emergency department at [facility] on 08/16/2018 complaining of shortness of breath at rest and with exertion and lightheadedness. She tells me her urine output has been decreased lately and recent lab at her primary care physician's office showed her creatinine was increased. She complains of nausea and decreased appetite recently but states she is drinking plenty of water every day. She denies any confusion but states she has a bad taste in her mouth like urine., Vital signs presentation to the emergency room were temp 98.5, pulse rate 78, blood pressure 159/73, respiratory rate was 17 and she was 92% on 4 L nasal cannula at rest. Normally she does not require oxygen at rest but uses 4 L with exertion. White blood cell count, hemoglobin and platelets are all within normal limits. Electrolytes are unremarkable and the BUN is 29 with a creatinine of 1.63. Troponin was increased at 0.034 and the BNP was 1349.2. Chest x-ray is consistent with bilateral pleural effusions and increased pulmonary vascular congestion secondary to congestive heart failure. She had a stress test in Apr that was negative for ischemia and the gated nuclear ejection fraction was 57%. Echocardiogram in November 2017 showed a 60% ejection fraction with a PA pressure of 59 consistent with moderate pulmonary hypertension. There was stage I diastolic dysfunction and mild concentric left ventricular hypertrophy. She is being admitted to the hospital with acute on chronic renal failure, acute [place] CHF and acute on chronic respiratory failure. Past Medical History Past Medical History (Chronic Problems): Chronic Problems (Last Reviewed 04/06/18 @ 10:57 by Wendy Carter) Chronic respiratory failure with hypoxia (Chronic) Chronic renal failure, stage 3 (moderate) (Chronic) 3-4 Hormone replacement therapy (Chronic) Daytime hypersomnia (Chronic) Obesity, morbid, BMI 40.0-49.9 (Chronic) Gout (Chronic) Hypoxia (Chronic) Hypertension (Chronic) History of TIA (transient ischemic attack) (Chronic) 1998 History of kidney cancer (Chronic) S/P nephrectomy CKD (chronic kidney disease) (Chronic) Medical History: Medical History (Last Reviewed 08/16/18 @ 18:39 by Violeta Dowling DO) Acute respiratory failure with hypoxia (Acute) J96.01 Obesity, morbid, BMI 40.0-49.9 (Chronic) E66.01 Gout (Chronic) M10.9 Hypoxia (Chronic) R09.02 Hypertension (Chronic) I10 History of TIA (transient ischemic attack) (Chronic) 1998 History of kidney cancer (Chronic) Z85.528 S/P nephrectomy CKD (chronic kidney disease) (Chronic) N18.9 Acute sinusitis J01.90 Biceps tendonitis M75.20 Biliary colic K80.50 Cancer of right kidney 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 Cough R05 Disorder of bone density and structure, unspecified M85.9 Gallstones K80.20 Impingement syndrome of left shoulder M75.42 Influenza A J10.1 Left rotator cuff tear M75.102 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 Skin neoplasm D49.2 Strain of muscle(s) and tendon(s) of the rotator cuff of left shoulder, initial encounter S46.012A DJD (degenerative joint disease) M19.90 Kidney disease N28.9 Stasis dermatitis I87.2 Venous insufficiency I87.2 COPD exacerbation (Resolved) J44.1 Elbow fracture, right S42.401A History of tobacco use (Inactive) Z87.891 quit 1994 Allergies clindamycin [From Cleocin] Allergy (Verified 04/11/18 20:07) Unknown oxycodone HCl [From OxyContin] Allergy (Verified 04/11/18 20:07) Anaphylaxis Sulfa (Sulfonamide Antibiotics) Allergy (Verified 04/11/18 20:07) Anaphylaxis vancomycin Allergy (Verified 04/11/18 20:07) Hives guaifenesin [From Entex LA] Adverse Reaction (Verified 04/11/18 20:07) Unknown phenylephrine [From Entex LA] Adverse Reaction (Verified 04/11/18 20:07) Unknown phenylpropanolamine [From Entex LA] Adverse Reaction (Verified 04/11/18 20:07) Unknown BETA BLOCKERS Adverse Reaction (Uncoded 04/11/18 20:07) Unknown Home Medications: Ambulatory Orders Medication Instructions Recorded Estrogens, Conjugated [Premarin] 0.3 mg PO DAILY 04/04/15 MedroxyPROGESTERone [Provera] 5 mg PO DAILY 05/18/15 Aspirin 325 mg PO DAILY@0800 04/12/18 Felodipine [Plendil] 10 mg PO DAILY 08/16/18 Hydrochlorothiazide [Hctz] 25 mg PO DAILY 08/16/18 Umeclidinium Brm/Vilanterol Tr 1 puff INHALATION DAILY 08/16/18 [Anoro Ellipta 62.5-25 Mcg INH] Surgical History: Surgical History (Last Reviewed 08/16/18 @ 18:39 by Violeta Dowling DO) H/O rotator cuff surgery Z98.890 right History of appendectomy Z90.49 age 18 History of left knee replacement Z96.652 2007 History of nephrectomy Z90.5 1994 for cancer History of total right knee replacement Z96.651 2010 Hx of cholecystectomy Z90.49 2016 Hx of removal of ovary Surgical History: - - Tonsillectomy, appendectomy, cholecystectomy, bilateral shoulder rotator cuff repair, right elbow fracture with surgery with pin in place, bilateral total knee replacement. Renal cell carcinoma, Surgery for SBO, Single salpingectomy and oophorectomy for ectopic . 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 Lives: Alone Smoking Status: Former smoker Tobacco Use: Cigarettes Alcohol: Rare Drugs: None - *Family History Paternal Family History: Family History (Last Reviewed 08/16/18 @ 18:39 by Violeta Dowling DO) Mother CAD (coronary artery disease) Father Colon cancer History Items: Cancer - Pancreatic CA, age 3838 years old., Diabetes, Heart Disease, Hypertension Maternal Family History: Family History (Last Reviewed 08/16/18 @ 18:39 by Violeta Dowling DO) Mother CAD (coronary artery disease) Father Colon cancer History Items: Heart Disease, Hypertension Review of Systems Constitutional: Reports: Anorexia, Weakness. Denies: Chills, Fever, Weight Change Eyes: Denies: Blurred vision, Pain HEENT: Denies: Difficulty Hearing, Difficulty Swallowing, Head Aches, Sinus Congestion, Sinus Drainage Cardiovascular: Reports: Light Headedness - with ambulation. Denies: Chest Pain, Palpitations Respiratory: Reports: Shortness of breath at rest, Shortness of breath upon exertion. Denies: Cough, Sputum production, Wheezing Gastrointestinal: Reports: Nausea. Denies: Abdominal Pain, Diarrhea, Vomiting Genitourinary: Reports: - - She complains that she has had decreased urine output recently despite drinking plenty of water. Denies: Dysuria Gynecological: Denies: Vaginal discharge Musculoskeletal: Denies: Joint Pain, Joint Tenderness Skin: Denies: Jaundice, Rash, Wounds Neurological: Denies: Difficulty swallowing, Focal weakness, Numbness, Tingling, Seizures Psychiatric: Denies: Anxiety, Depression, Homicidal Ideations, Suicidal Ideations Hematologic/ Lymphatic: Denies: Easy Bruising, Easy Bleeding, Hx of blood clot VTE Information - Inpt Only VTE Present on Admission: No VTE Mechan Device Prophylaxis: SCD's, Knee High MACRINA Hose VTE Pharm Prophylaxis ordered?: Yes Patient Problems: Active and Suspected Problems (Last Reviewed 04/06/18 @ 10:57 by Wendy Carter) Acute diastolic (congestive) heart failure (Acute) Acute and chronic respiratory failure with hypoxia (Acute) Pulmonary hypertension (Acute) PA pressure 57 in November 2017 - Physical Exam General: Alert, Oriented x3, Cooperative, No apparent distress, Well developed, Well nourished, - - Morbidly obese HEENT: Atraumatic, PERRLA, EOMI, Normocephalic Oral: Dry Mucosa Neck: Supple, No JVD - but difficult to assess due to body habitus, Negative Carotid Bruits, No Nuchal Rigidity, Trachea Midline Lungs: Normal air movement, Rales - in the bases BL, - - not tachypneic at rest and no conversational dyspnea however she gets tachypneic and conversational dyspnea when moving around in the bed or trying to ambulate Cardiovascular: Regular rate, Regular Rhythm, Normal S1, Normal S2, No murmurs, No rub noted, No Gallop, - - Heart sounds are distant Abdomen: Bowel Sounds Present, Soft, Non Tender, Obese Extremities: No clubbing, No cyanosis, No edema, No Calf Tenderness, Diminished Peripheral Pulses Skin: No rashes, No breakdown Musculoskeletal: No Tenderness to Palpation of Joints or Extremities Neurological: Cranial nerves II-XII grossly intact, Neuro grossly intact Psych/Mental Status: Normal Affect, Appropriate Vital Signs Temp Pulse Resp BP Pulse Ox 97.7 F L 88 20 H 152/98 H 95 08/16/18 17:45 08/16/18 17:52 08/16/18 17:45 08/16/18 17:45 08/16/18 17:45 Oxygen Flow Rate (L/min) 3 Oxygen Delivery Method Nasal Cannula Weight: 258 lb 6.108 oz Body Mass Index (BMI) 41.7 Intake and Output for Last 24 Hours 08/14/18 08/15/18 08/16/18 23:59 23:59 23:59 Intake Total 120 / 120 Output Total 150 / 150 Balance -30 / -30 Laboratory Tests Past 24 Hrs 08/16/18 08/16/18 08/16/18 15:00 15:00 15:00 WBC 6.5 RBC 4.45 Hgb 12.9 Hct 41.0 MCV 92.1 MCH 29.0 MCHC 31.5 L RDW 16.1 H RDW Differential 54.8 H Plt Count 247 MPV 10.1 Immature Gran % (Auto) 0.000 Neut % (Auto) 74.6 H Lymph % (Auto) 15.0 L [place] % (Auto) 8.9 Eos % (Auto) 0.9 Baso % (Auto) 0.6 Absolute Neuts (auto) 4.9 Absolute Lymphs (auto) 0.98 Total Counted Not Reportable PT 15.1 H INR 1.2 APTT 29.0 Sodium 145 Potassium 4.3 Chloride 112 H Carbon Dioxide 27.0 Anion Gap 6 BUN 29 H Creatinine 1.63 H Estim Creat Clear Calc 48.69 Est GFR (MDRD) Af Amer 39 L Est GFR (MDRD) Non-Af 32 L BUN/Creatinine Ratio 17.8 Glucose 96 Calcium 8.7 Troponin I 0.034 B-Natriuretic Peptide 08/16/18 15:00 WBC RBC Hgb Hct MCV MCH MCHC RDW RDW Differential Plt Count MPV Immature Gran % (Auto) Neut % (Auto) Lymph % (Auto) [place] % (Auto) Eos % (Auto) Baso % (Auto) Absolute Neuts (auto) Absolute Lymphs (auto) Total Counted PT INR APTT Sodium Potassium Chloride Carbon Dioxide Anion Gap BUN Creatinine Estim Creat Clear Calc Est GFR (MDRD) Af Amer Est GFR (MDRD) Non-Af BUN/Creatinine Ratio Glucose Calcium Troponin I B-Natriuretic Peptide 1349.2 H Assessment/Plan All Active Problems (Last Reviewed 04/06/18 @ 10:57 by Wendy Carter) Acute diastolic (congestive) heart failure (Acute) Acute and chronic respiratory failure with hypoxia (Acute) Pulmonary hypertension (Acute) Acute respiratory failure with hypoxia (Acute) COPD exacerbation (Resolved) Chest pain (Resolved) Impressions 1. Acute on chronic renal failure with BUN increased from 1.28 in April of this year to 1.63 today 2. Acute diastolic congestive heart failure 3. Acute on chronic respiratory failure with hypoxemia requiring increased oxygen to maintain saturation greater than 90% at rest when normally she does not require oxygen 4. History of nephrectomy for renal cell carcinoma 5. Uncontrolled hypertension 6. Morbid obesity 7. History of gout 8. History of a TIA Admit to a monitored bed on TCU Weigh at admission to the floor and then daily Acccurate I&O's Chest XRAY - done BNP Diurese with Lasix 40 mg IV x1 now [] ECHO done in April of this year-no need to repeat Recheck lab in the AM Salt restriction-2 g sodium Fluid restriction-1500 cc Dietary consult for education regarding low sodium diet Consult Dr. Streeter for renal failure Ultrasound of the kidneys and bladder Hydralazine 10 mg IV now to get better blood pressure control and start hydralazine 25 mg p.o. 3 times daily Hold estrogen and progesterone due to high risk for DVT DVT prophylaxis with heparin and SCDs Code Visit Inpatient E&M: 78215 Subs Hosp L3
[2018-08-16] MEDS: hydrALAZINE 20 MG/ML Vial 10 MG IV (18:31)
[2018-08-16] MEDS: 0.9% NaCl Peripheral Flush Adult/Peds IV (18:31)
[2018-08-16 19:20] LABS: Magnesium 1.8 mg/dL (1.6-2.6); Phosphorus 2.8 mg/dL (2.5-4.9); Thyroid Stim Hormone (TSH) 3.05 uIU/mL (0.358-3.74)
[2018-08-16] MEDS: Ipratropium/Albuterol Sulfate 3 ML AMPUL.NEB INHALATION (21:29)
[2018-08-16] MEDS: hydrALAZINE 25 MG Tablet PO (22:09)
[2018-08-16] MEDS: Heparin Injection (Vial) 5,000 UNIT/ML VIAL 5000 UNIT SC (22:10)
[2018-08-17] VITALS (17 sets, daily range): BP systolic 134–162; BP diastolic 70–83; PULSE 79–121; RESP 16–21; TEMP 36.6–36.9; O2SAT 91–96
[2018-08-17] MEDS: hydrALAZINE 25 MG Tablet PO ×3 (05:41→21:35)
[2018-08-17] MEDS: Heparin Injection (Vial) 5,000 UNIT/ML VIAL 5000 UNIT SC ×3 (05:41→21:35)
--- NOTE | 2018-08-17 05:55 | EKG12_ITS ---
Test Reason : Blood Pressure : / mmHG Vent. Rate : 080 BPM Atrial Rate : 080 BPM P-R Int : 168 ms QRS Dur : 086 ms QT Int : 394 ms P-R-T Axes : 067 082 058 degrees QTc Int : 454 ms Normal sinus rhythm Normal ECG When compared with ECG of 16-AUG-2018 14:53, MANUAL COMPARISON REQUIRED, DATA IS UNCONFIRMED Confirmed by JAYESH SHELDON, ZACH ([id number]), material expeditor SUNSHINE STODDARD ([id number]) on 08/20/2018 11:05:25 AM Referred By: Confirmed By:ZACH MCCONNELL MD
--- NOTE | 2018-08-17 05:55 | US_ITS ---
STUDY: RENAL ULTRASOUND - COMPLETE REASON FOR EXAM: Female, 82 years old. Renal failure history of renal cell carcinoma and nephrectomy 1994 TECHNIQUE: Ultrasound evaluation of the kidneys was performed with real-time and static blake-scale imaging. COMPARISON: CT abdomen and pelvis March 11, 2018 FINDINGS: RIGHT KIDNEY: Has been surgically removed. LEFT KIDNEY: Normal location of the left kidney, which is normal in size. The left kidney measures 10.0 x 4.0 x 5.8 cm. There is a normal cortex of the left kidney. The renal cortex measures 1.9 cm. There is no left renal mass or cyst. There are no left renal calculi. There is no left hydronephrosis. DISTAL LEFT URETER: There is non-visualization of the distal left ureter. There is no demonstrated left ureterovesical junction calculus. There is a visualized left ureteral jet. BLADDER: The distended urinary bladder has a volume of 94.4 ml. There is a normal wall thickness of the distended urinary bladder. There is no demonstrated mass within the urinary bladder. There are no demonstrated bladder calculi. US/Kidney and Bladder IMPRESSION: Normal ultrasound of the left kidney and urinary bladder. Status post right nephrectomy. Electronically Signed: Zonia Foreman MD at 15:37 EST Tel , Service support ,
[2018-08-17] MEDS: Ipratropium/Albuterol Sulfate 3 ML AMPUL.NEB INHALATION ×2 (07:05→19:05)
[2018-08-17 07:24] LABS: ALB/GLOB Ratio 0.9 RATIO (0.9-2.4); AST(SGOT) 31 U/L (15-37); Alanine Aminotransfer ALT/SGPT 34 U/L (13-56); Alkaline Phosphatase 64 U/L (45-117); Anion Gap 10 (5-15); BUN 31 mg/dL (7-18); BUN/Creat Ratio 17.2 RATIO (10-20); Chloride 110 mmol/L (98-107); Cholesterol 91 mg/dL (200); EST Glomerular Filtration Rate 29 mL/min (>60); Est Glom Filt Rate - Afr Amer 35 mL/min (>60); Estimated Creatinine Clearance 23.34 ml/min; Globulin 3.4 g/dL (2.2-4.2); Glucose 94 mg/dL (74-106); High Density Lipoprotein 42 mg/dL; Magnesium 1.8 mg/dL (1.6-2.6); Phosphorus 3.1 mg/dL (2.5-4.9); Potassium 4.1 mmol/L (3.5-5.1); Protein, Total 6.4 g/dL (6.4-8.2); Sodium Level 146 mmol/L (136-145); Triglycerides 63 mg/dL; Very Low Density Lipoprotein 13 mg/dL (5-40)
[2018-08-17] MEDS: amLODIPine 5 MG Tablet PO (08:46)
[2018-08-17] MEDS: Aspirin 325 MG Tablet PO (08:46)
--- NOTE | 2018-08-17 13:44 | PN_ITS ---
<Wendy Cummings - Last Filed: 08/17/18 13:44> Patient Problems: Active and Suspected Problems (Last Reviewed 08/16/18 @ 18:39 by Violeta Dowling DO) Acute and chronic respiratory failure with hypoxia (Acute) Acute diastolic (congestive) heart failure (Acute) Subjective: Patient seen and examined. Denies shortness of breath. Complains of feeling like she is going to pass out with ambulation, dizziness. Denies chest pain. Denies other current complaint. - Physical Exam General: Alert, Oriented x3, Cooperative HEENT: Atraumatic, PERRLA, EOMI, Normocephalic Oral: Dry Mucosa Neck: Supple, No JVD, Negative Carotid Bruits Lungs: Diminished, Rales Cardiovascular: Regular rate, Regular Rhythm, Normal S1, Normal S2, No murmurs Abdomen: Bowel Sounds Present, Soft, Non Tender, Non-Distended, Obese Extremities: No clubbing, No cyanosis, No edema, Capillary Refill Less than 3 Seconds Skin: No rashes, No breakdown Musculoskeletal: No Tenderness to Palpation of Joints or Extremities Neurological: Cranial nerves II-XII grossly intact, Neuro grossly intact Psych/Mental Status: Normal Affect, Appropriate Vital Signs Temp Pulse Resp BP Pulse Ox 98.1 F 92 18 154/80 H 96 08/17/18 09:40 08/17/18 11:00 08/17/18 09:40 08/17/18 09:40 08/17/18 09:40 Oxygen Flow Rate (L/min) 3 Oxygen Delivery Method Nasal Cannula Weight: 255 lb 15.307 oz Body Mass Index (BMI) 41.7 Intake and Output for Last 24 Hours 08/15/18 08/16/18 08/17/18 23:59 23:59 23:59 Intake Total 667 / 667 290 / 290 Output Total 1050 / 1050 1300 / 1300 Balance -383 / -383 -1010 / -1010 Laboratory Tests Past 24 Hrs 08/16/18 08/16/18 08/16/18 15:00 15:00 15:00 WBC 6.5 RBC 4.45 Hgb 12.9 Hct 41.0 MCV 92.1 MCH 29.0 MCHC 31.5 L RDW 16.1 H RDW Differential 54.8 H Plt Count 247 MPV 10.1 Immature Gran % (Auto) 0.000 Neut % (Auto) 74.6 H Lymph % (Auto) 15.0 L Appling % (Auto) 8.9 Eos % (Auto) 0.9 Baso % (Auto) 0.6 Absolute Neuts (auto) 4.9 Absolute Lymphs (auto) 0.98 Total Counted Not Reportable PT 15.1 H INR 1.2 APTT 29.0 Sodium 145 Potassium 4.3 Chloride 112 H Carbon Dioxide 27.0 Anion Gap 6 BUN 29 H Creatinine 1.63 H Estim Creat Clear Calc 48.69 Est GFR (MDRD) Af Amer 39 L Est GFR (MDRD) Non-Af 32 L BUN/Creatinine Ratio 17.8 Glucose 96 Calcium 8.7 Phosphorus Magnesium Total Bilirubin AST ALT Alkaline Phosphatase Troponin I 0.034 B-Natriuretic Peptide Total Protein Albumin Globulin Albumin/Globulin Ratio Triglycerides Cholesterol LDL Cholesterol VLDL Cholesterol HDL Cholesterol TSH 08/16/18 08/16/18 08/17/18 15:00 18:46 01:00 WBC RBC Hgb Hct MCV MCH MCHC RDW RDW Differential Plt Count MPV Immature Gran % (Auto) Neut % (Auto) Lymph % (Auto) Appling % (Auto) Eos % (Auto) Baso % (Auto) Absolute Neuts (auto) Absolute Lymphs (auto) Total Counted PT INR APTT Sodium Potassium Chloride Carbon Dioxide Anion Gap BUN Creatinine Estim Creat Clear Calc Est GFR (MDRD) Af Amer Est GFR (MDRD) Non-Af BUN/Creatinine Ratio Glucose Calcium Phosphorus 2.8 Magnesium 1.8 Total Bilirubin AST ALT Alkaline Phosphatase Troponin I 0.038 0.036 B-Natriuretic Peptide 1349.2 H Total Protein Albumin Globulin Albumin/Globulin Ratio Triglycerides Cholesterol LDL Cholesterol VLDL Cholesterol HDL Cholesterol TSH 3.05 08/17/18 06:25 WBC RBC Hgb Hct MCV MCH MCHC RDW RDW Differential Plt Count MPV Immature Gran % (Auto) Neut % (Auto) Lymph % (Auto) Appling % (Auto) Eos % (Auto) Baso % (Auto) Absolute Neuts (auto) Absolute Lymphs (auto) Total Counted PT INR APTT Sodium 146 H Potassium 4.1 Chloride 110 H Carbon Dioxide 26.0 Anion Gap 10 BUN 31 H Creatinine 1.80 H Estim Creat Clear Calc 23.34 Est GFR (MDRD) Af Amer 35 L Est GFR (MDRD) Non-Af 29 L BUN/Creatinine Ratio 17.2 Glucose 94 Calcium 9.0 Phosphorus 3.1 Magnesium 1.8 Total Bilirubin 0.70 AST 31 ALT 34 Alkaline Phosphatase 64 Troponin I B-Natriuretic Peptide Total Protein 6.4 Albumin 3.0 L Globulin 3.4 Albumin/Globulin Ratio 0.9 Triglycerides 63 Cholesterol 91 LDL Cholesterol 36 VLDL Cholesterol 13 HDL Cholesterol 42 TSH Medical Necessity - Tobacco Use Smoking Status: Former smoker Tobacco Use: Cigarettes Assessment/Plan All Active Problems (Last Reviewed 08/16/18 @ 18:39 by Violeta Dowling DO) Acute and chronic respiratory failure with hypoxia (Acute) Acute diastolic (congestive) heart failure (Acute) 1. Acute diastolic CHF-chest x-ray on admission with interstitial markings suspicious for edema and/or atypical infiltrates. BNP 1349. Strict I&O. Daily weight. Fluid restriction. Echocardiogram November 2017 with EF 60%, pulmonary artery systolic pressure 59 mmHg, moderate pulmonary hypertension, mild stage I diastolic dysfunction. Patient received IV Lasix x2. Repeat chest x-ray in a.m. Hesitant on further diuresis at this time given PEACE. 2. Chronic hypoxic respiratory failure due to chronic COPD-patient chronically wears 4 L nasal cannula with ambulation. Currently on 3 L nasal cannula at rest. Continue supplement oxygen to maintain O2 sat above 90%. Patient follows with pulmonary medicine as outpatient. 3. Acute kidney injury on chronic kidney disease stage III -history of n ephrectomy due to renal cell carcinoma. Baseline creatinine 1.3-1.4. Current creatinine 1.8. Renal ultrasound pending. Nephrology consulted. Patient does not currently follow with nephrology as outpatient. Trend BMP. 4. Hypertension-poorly controlled. Home HCTZ regimen on hold given PEACE. Started on hydralazine 25 mg p.o. 3 times daily. Add amlodipine 10 mg daily. Continue to monitor. 5. History of gout-not on preventative regimen. 6. History of TIA-continue aspirin. 7. Morbid obesity-encouraged diet lifestyle modifications. DVT prophylaxis-heparin subcu, SCDs This patient was seen by ZAK Donaldson under the supervision of Dr. Brown. <Antonette Brown - Last Filed: 08/17/18 14:01> - Physical Exam Vital Signs Temp Pulse Resp BP Pulse Ox 98.1 F 92 18 154/80 H 96 08/17/18 09:40 08/17/18 11:00 08/17/18 09:40 08/17/18 09:40 08/17/18 09:40 Oxygen Flow Rate (L/min) 3 Oxygen Delivery Method Nasal Cannula Weight: 255 lb 15.307 oz Body Mass Index (BMI) 41.7 Intake and Output for Last 24 Hours 08/15/18 08/16/18 08/17/18 23:59 23:59 23:59 Intake Total 667 / 667 290 / 290 Output Total 1050 / 1050 1300 / 1300 Balance -383 / -383 -1010 / -1010 Laboratory Tests Past 24 Hrs 08/16/18 08/16/18 08/16/18 15:00 15:00 15:00 WBC 6.5 RBC 4.45 Hgb 12.9 Hct 41.0 MCV 92.1 MCH 29.0 MCHC 31.5 L RDW 16.1 H RDW Differential 54.8 H Plt Count 247 MPV 10.1 Immature Gran % (Auto) 0.000 Neut % (Auto) 74.6 H Lymph % (Auto) 15.0 L Appling % (Auto) 8.9 Eos % (Auto) 0.9 Baso % (Auto) 0.6 Absolute Neuts (auto) 4.9 Absolute Lymphs (auto) 0.98 Total Counted Not Reportable PT 15.1 H INR 1.2 APTT 29.0 Sodium 145 Potassium 4.3 Chloride 112 H Carbon Dioxide 27.0 Anion Gap 6 BUN 29 H Creatinine 1.63 H Estim Creat Clear Calc 48.69 Est GFR (MDRD) Af Amer 39 L Est GFR (MDRD) Non-Af 32 L BUN/Creatinine Ratio 17.8 Glucose 96 Calcium 8.7 Phosphorus Magnesium Total Bilirubin AST ALT Alkaline Phosphatase Troponin I 0.034 B-Natriuretic Peptide Total Protein Albumin Globulin Albumin/Globulin Ratio Triglycerides Cholesterol LDL Cholesterol VLDL Cholesterol HDL Cholesterol TSH 08/16/18 08/16/18 08/17/18 15:00 18:46 01:00 WBC RBC Hgb Hct MCV MCH MCHC RDW RDW Differential Plt Count MPV Immature Gran % (Auto) Neut % (Auto) Lymph % (Auto) Appling % (Auto) Eos % (Auto) Baso % (Auto) Absolute Neuts (auto) Absolute Lymphs (auto) Total Counted PT INR APTT Sodium Potassium Chloride Carbon Dioxide Anion Gap BUN Creatinine Estim Creat Clear Calc Est GFR (MDRD) Af Amer Est GFR (MDRD) Non-Af BUN/Creatinine Ratio Glucose Calcium Phosphorus 2.8 Magnesium 1.8 Total Bilirubin AST ALT Alkaline Phosphatase Troponin I 0.038 0.036 B-Natriuretic Peptide 1349.2 H Total Protein Albumin Globulin Albumin/Globulin Ratio Triglycerides Cholesterol LDL Cholesterol VLDL Cholesterol HDL Cholesterol TSH 3.05 08/17/18 06:25 WBC RBC Hgb Hct MCV MCH MCHC RDW RDW Differential Plt Count MPV Immature Gran % (Auto) Neut % (Auto) Lymph % (Auto) Appling % (Auto) Eos % (Auto) Baso % (Auto) Absolute Neuts (auto) Absolute Lymphs (auto) Total Counted PT INR APTT Sodium 146 H Potassium 4.1 Chloride 110 H Carbon Dioxide 26.0 Anion Gap 10 BUN 31 H Creatinine 1.80 H Estim Creat Clear Calc 23.34 Est GFR (MDRD) Af Amer 35 L Est GFR (MDRD) Non-Af 29 L BUN/Creatinine Ratio 17.2 Glucose 94 Calcium 9.0 Phosphorus 3.1 Magnesium 1.8 Total Bilirubin 0.70 AST 31 ALT 34 Alkaline Phosphatase 64 Troponin I B-Natriuretic Peptide Total Protein 6.4 Albumin 3.0 L Globulin 3.4 Albumin/Globulin Ratio 0.9 Triglycerides 63 Cholesterol 91 LDL Cholesterol 36 VLDL Cholesterol 13 HDL Cholesterol 42 TSH Assessment/Plan Hospitalist note: I am seeing this patient in conjunction with Wendy Cummings. I independently seen and examined the patient. Progress note above, laboratory data and imaging studies reviewed and I concur with the above treatment plan. Patient seen and examined today. She denies any more shortness of breath. She stated that she feels dizzy and about to pass out upon ambulation. She denied chest pain, palpitation. She is afebrile, blood pressure and heart rate are stable, pulse ox is 96% on 3 L. At home, she has been on 4 L. - Physical Exam General: Alert, Oriented x3, Cooperative, No apparent distress. HEENT: Atraumatic, PERRLA, EOMI. Neck: Supple, No JVD, Negative Carotid Bruits, Trachea Midline, Thyroid Normal. Lungs: Decreased breath sounds at the bases, bilateral basal fine crackles, no rhonchi, No wheeze, No rales. Cardiovascular: Regular rate, Regular Rhythm, Normal S1, Normal S2, PMI Normal. Abdomen: Bowel Sounds Present, Soft, Non Tender, Non-Distended, No Hepato- splenomegaly. Extremities: No clubbing, No cyanosis, No edema Skin: No rashes, No breakdown Neurological: Neuro grossly intact Vital Signs are stable. Assessment and plan: #1 acute on chronic diastolic CHF: She is here with 2 doses of IV Lasix. She had 2D echocardiogram on November, that revealed EF 60%, moderate pulmonary hypertension and stage I diastolic dysfunction. She is not on MOISES inhibitors because of chronic kidney disease. She was not given any more IV diuretics because of worsening kidney function. Plan to continue same treatment for now, repeat BMP tomorrow morning. #2 acute kidney injury, stage III chronic kidney disease: Her baseline kidney function has been around 1-1.4 mg/dL. Admission creatinine was 1.63 and it went up to 1.80 today. This is likely because of IV diuresis. Kidney ultrasound performed. Nephrology consulted. #3 chronic hypoxic respiratory failure: Due to chronic COPD, patient was on oxygen at home at 4 L with ambulation. At this time, symptoms improved, she is down to 3 L. Plan as above. #4 uncontrolled hypertension: Blood pressure is poorly controlled. HCTZ held because of acute kidney injury. At this time, she is on Norvasc and started on hydralazine 3 times daily. Plan to monitor. #5 other chronic medical problems: Stable, continue current medications as above. This note was generated with [employer] software. It may contain incorrect words, spelling, and punctuation that were not noted in checking the note before signing. Code Visit Inpatient E&M: 07287 Subs Hosp L2
[2018-08-17] MEDS: Furosemide 40 MG/4 ML Vial IV (14:20)
--- NOTE | 2018-08-17 14:33 | CASEMGMT ---
Assessment- 08-17-18 Living situation- With son, John. She is set up on first floor. There are 2 entry steps. PCP: Dr Dustin Mendieta Pharmacy: [facility] DME: Raised toilet seat, grab bars throughout the house and bathroom, lift chair, shower chair, 2 bedside commodes, 2 walkers, and 2 canes ADL's/IADL's: Patient is independent in all adls and iadls Past SNF/rehab: No Past HH: No LW: Yes. she thought it was on file. PATRICIO told her it is not POA: Yes. PATRICIO completed new documents with patient. Her son Jd is her new healthcare POA Plan: Patient plans on returning home at d/c with assistance from her sons Bella LACEY FOOD TECHNOLOGY TEACHER
--- NOTE | 2018-08-17 14:38 | CASEMGMT ---
SW completed healthcare POA with patient. Copies were made. Originals and two extra copies were given to patient. A copy was placed in her chart. Bella LACEY MSW
--- NOTE | 2018-08-17 14:41 | CASEMGMT ---
SW completed healthcare POA with patient and copy was placed in her chart. She has a healthcare Living Will and she thought it was on file at [facility]. PATRICIO let her know it is not on file. Bella LACEY MSW
--- NOTE | 2018-08-17 16:05 | CHAPLAIN ---
Type of Pastoral Visit _x__ Initial Visit ___ Follow-up Visit ___ On-call Visit ___ General Patient Visit ___ Spiritual Assessment ___ Family Conference ___ Bereavement ___ Rapid Response ___ Code Blue ___ Other (describe below) Pastoral Care Referral From _x__ Patient ___ Family ___ Nurse ___ Physician ___ Optical Glass Silverer ___ Inside Barrel Lathe Operator ___ Other (describe below) Sacrament/Intervention _x__ Active listening ___ Anointing ___ Gnosticist ___ Bereavement ___ Communion _x__ Macarena exploration ___ ___ Life review _x__ Prayer ___ Reconciliation ___ Sacrament of Sick ___ Supportive presence ___ Wedding ___ Other (describe below) Pastoral Comments
--- NOTE | 2018-08-17 16:48 | PCM.CONS.R ---
Problem List (1) PEACE (acute kidney injury) Status: Acute (2) Chronic renal failure, stage 3 (moderate) Status: Chronic Comment: 3-4 Consultation - Renal 08/17/18 PCP/ Referring MD: Requesting physician: Dr Dowling Primary care physician: Dustin Mendieta MD Reason for Consultation:: PEACE - History of Present Illness History of Present Illness: The patient is a 82 year old F presented to hospital with dyspnea, oliguria and PEACE. renal consulted for PEACE complaints over the last one week - discolored urine, dyspnea, BP upto 190/100. no new med. No NSAIDs. no kidney stones prior nephrectomy received IV lasix for fluid overload since admission, now on hold - Allergies Allergies: Allergies clindamycin [From Cleocin] Allergy (Verified 04/11/18 20:07) Unknown oxycodone HCl [From OxyContin] Allergy (Verified 04/11/18 20:07) Anaphylaxis Sulfa (Sulfonamide Antibiotics) Allergy (Verified 04/11/18 20:07) Anaphylaxis vancomycin Allergy (Verified 04/11/18 20:07) Hives guaifenesin [From Entex LA] Adverse Reaction (Verified 04/11/18 20:07) Unknown phenylephrine [From Entex LA] Adverse Reaction (Verified 04/11/18 20:07) Unknown phenylpropanolamine [From Entex LA] Adverse Reaction (Verified 04/11/18 20:07) Unknown BETA BLOCKERS Adverse Reaction (Uncoded 04/11/18 20:07) Unknown - Current Medications Current Medications: Current Medications Acetaminophen (Tylenol) 650 mg PO Q6H PRN PRN PRN Reason: Mild Pain (scale 0-3)/T>100.7 Albuterol/Ipratropium (Duoneb) 3 ml INHALATION Q6HWA.RT [facility] Last Admin: 08/17/18 13:19 Dose: Not Given Amlodipine Besylate (Norvasc) 10 mg PO DAILY [facility] Aspirin (Aspirin) 325 mg PO DAILY@0800 [facility] Last Admin: 08/17/18 08:46 Dose: 325 mg Heparin Sodium (Porcine) (Heparin Na) 5,000 unit SC Q8 [facility] Last Admin: 08/17/18 14:20 Dose: 5,000 unit Hydralazine HCl (Apresoline) 25 mg PO TID [facility] Last Admin: 08/17/18 14:20 Dose: 25 mg Ondansetron HCl (Zofran) 4 mg IV Q8H PRN PRN PRN Reason: Nausea Sodium Chloride () 5 - 15 ml IV UD PRN PRN Reason: SALINE FLUSH Last Admin: 08/16/18 18:31 Dose: 10 ml - Past Medical History Past Medical History (Chronic Problems): Chronic Problems (Last Updated 08/17/18 @ 13:56 by Antonette Brown MD) Chronic respiratory failure with hypoxia (Chronic) Chronic renal failure, stage 3 (moderate) (Chronic) 3-4 Hormone replacement therapy (Chronic) Pulmonary hypertension (Chronic) PA pressure 57 in November 2017 Daytime hypersomnia (Chronic) Obesity, morbid, BMI 40.0-49.9 (Chronic) Gout (Chronic) Hypertension (Chronic) History of TIA (transient ischemic attack) (Chronic) 1998 History of kidney cancer (Chronic) S/P nephrectomy - Past Surgical History Surgical History: - - Tonsillectomy, appendectomy, cholecystectomy, bilateral shoulder rotator cuff repair, right elbow fracture with surgery with pin in place, bilateral total knee replacement. Renal cell carcinoma, Surgery for SBO, Single salpingectomy and oophorectomy for ectopic . - Social History Smoking Status: Former smoker Alcohol: Rare Drugs: None - Family History Paternal Family History: Family History (Last Reviewed 08/16/18 @ 18:39 by Violeta Dowling DO) Mother CAD (coronary artery disease) Father Colon cancer History Items: Cancer - Pancreatic CA, age 3838 years old., Diabetes, Heart Disease, Hypertension Maternal Family History: Family History (Last Reviewed 08/16/18 @ 18:39 by Violeta Dowling DO) Mother CAD (coronary artery disease) Father Colon cancer History Items: Heart Disease, Hypertension Review of Systems Constitutional: Denies: Chills, Fever, Weight Change HEENT: Denies: Head Aches, Sinus Congestion, Sinus Drainage Cardiovascular: Denies: Chest Pain, Palpitations Respiratory: Denies: Cough, Shortness of breath at rest, Sputum production Gastrointestinal: Denies: Abdominal Pain, Nausea, Vomiting Genitourinary: Denies: Dysuria Musculoskeletal: Denies: Joint Pain, Joint Tenderness Skin: Denies: Rash, Wounds Neurological: Denies: Numbness, Tingling, Focal weakness Psychiatric: Denies: Anxiety, Depression, Homicidal Ideations, Suicidal Ideations Hematologic/ Lymphatic: Denies: Easy Bruising, Easy Bleeding Patient Problems: Active and Suspected Problems (Last Updated 08/17/18 @ 13:56 by Antonette Brown MD) PEACE (acute kidney injury) (Acute) Acute and chronic respiratory failure with hypoxia (Acute) Acute diastolic (congestive) heart failure (Acute) - Physical Exam General: Alert, Oriented x3, Cooperative HEENT: Atraumatic, PERRLA, EOMI, Normocephalic Neck: Supple, No JVD, Negative Carotid Bruits Lungs: Clear to auscultation, Normal air movement Cardiovascular: Regular rate, No murmurs Abdomen: Bowel Sounds Present, Soft, Non Tender Extremities: No edema, Capillary Refill Less than 3 Seconds Skin: No rashes, No breakdown Musculoskeletal: No Tenderness to Palpation of Joints or Extremities Neurological: Cranial nerves II-XII grossly intact Psych/Mental Status: Normal Affect, Appropriate Vital Signs Temp Pulse Resp BP Pulse Ox 98.4 F 82 19 H 134/78 H 96 08/17/18 15:40 08/17/18 15:40 08/17/18 15:40 08/17/18 15:40 08/17/18 15:40 Oxygen Flow Rate (L/min) 3 Oxygen Delivery Method Nasal Cannula Weight: 116.1 kg Body Mass Index (BMI) 41.7 Orthostatic Vital Signs Start: 08/17/18 14:13 Freq: q24h Status: Active Protocol: Activity Type Activity Date Activity User E-Sign Co-Sign Detail Recorded Client Recorded Date Recorded By Document 08/17/18 14:32 ANG [id number] 08/17/18 14:33 ANG 08/17/18 14:32 Orthostatic Vitals Standing -Blood Pressure (90/60-120/80 mm Hg) 147/70 H -Pulse Rate (60-100 beats/min) 91 Sitting -Blood Pressure (90/60-120/80 mm Hg) 157/74 H -Pulse Rate (60-100 beats/min) 89 Lying -Blood Pressure (90/60-120/80 mm Hg) 154/78 H -Pulse Rate (60-100 beats/min) 88 Intake and Output for Last 24 Hours 08/15/18 08/16/18 08/17/18 23:59 23:59 23:59 Intake Total 667 / 667 290 / 290 Output Total 1050 / 1050 1300 / 1300 Balance -383 / -383 -1010 / -1010 Laboratory Tests Past 24 Hrs 08/16/18 08/17/18 08/17/18 18:46 01:00 06:25 Sodium 146 H Potassium 4.1 Chloride 110 H Carbon Dioxide 26.0 Anion Gap 10 BUN 31 H Creatinine 1.80 H Estim Creat Clear Calc 23.34 Est GFR (MDRD) Af Amer 35 L Est GFR (MDRD) Non-Af 29 L BUN/Creatinine Ratio 17.2 Glucose 94 Calcium 9.0 Phosphorus 2.8 3.1 Magnesium 1.8 1.8 Total Bilirubin 0.70 AST 31 ALT 34 Alkaline Phosphatase 64 Troponin I 0.038 0.036 Total Protein 6.4 Albumin 3.0 L Globulin 3.4 Albumin/Globulin Ratio 0.9 Triglycerides 63 Cholesterol 91 LDL Cholesterol 36 VLDL Cholesterol 13 HDL Cholesterol 42 TSH 3.05 Assessment/Plan All Active Problems (Last Updated 08/17/18 @ 13:56 by Antonette Brown MD) PEACE (acute kidney injury) (Acute) Acute and chronic respiratory failure with hypoxia (Acute) Acute diastolic (congestive) heart failure (Acute) PEACE CKD stage 3 CKD 3 at baseline with creatinine around 1.4 or so. prior nephrectomy. renal USG does not show any hydro. no new meds. No NSAIDs. Bp is ok now. will check Urinalysis to see if any proteinuria present. no changes made for today CHF. volume status looks ok now will arrange follow up in tran office after dc
--- NOTE | 2018-08-17 16:54 | CON.PCM_ITS ---
Problem List (1) PEACE (acute kidney injury) Status: Acute (2) Chronic renal failure, stage 3 (moderate) Status: Chronic Comment: 3-4 Consultation - Renal 08/17/18 PCP/ Referring MD: Requesting physician: Dr Dowling Primary care physician: Dustin Mendieta MD Reason for Consultation:: PEACE - History of Present Illness History of Present Illness: The patient is a 82 year old F presented to hospital with dyspnea, oliguria and PEACE. renal consulted for PEACE complaints over the last one week - discolored urine, dyspnea, BP upto 190/100. no new med. No NSAIDs. no kidney stones prior nephrectomy received IV lasix for fluid overload since admission, now on hold - Allergies Allergies: Allergies clindamycin [From Cleocin] Allergy (Verified 04/11/18 20:07) Unknown oxycodone HCl [From OxyContin] Allergy (Verified 04/11/18 20:07) Anaphylaxis Sulfa (Sulfonamide Antibiotics) Allergy (Verified 04/11/18 20:07) Anaphylaxis vancomycin Allergy (Verified 04/11/18 20:07) Hives guaifenesin [From Entex LA] Adverse Reaction (Verified 04/11/18 20:07) Unknown phenylephrine [From Entex LA] Adverse Reaction (Verified 04/11/18 20:07) Unknown phenylpropanolamine [From Entex LA] Adverse Reaction (Verified 04/11/18 20:07) Unknown BETA BLOCKERS Adverse Reaction (Uncoded 04/11/18 20:07) Unknown - Current Medications Current Medications: Current Medications Acetaminophen (Tylenol) 650 mg PO Q6H PRN PRN PRN Reason: Mild Pain (scale 0-3)/T>100.7 Albuterol/Ipratropium (Duoneb) 3 ml INHALATION Q6HWA.RT [facility] Last Admin: 08/17/18 13:19 Dose: Not Given Amlodipine Besylate (Norvasc) 10 mg PO DAILY [facility] Aspirin (Aspirin) 325 mg PO DAILY@0800 [facility] Last Admin: 08/17/18 08:46 Dose: 325 mg Heparin Sodium (Porcine) (Heparin Na) 5,000 unit SC Q8 [facility] Last Admin: 08/17/18 14:20 Dose: 5,000 unit Hydralazine HCl (Apresoline) 25 mg PO TID [facility] Last Admin: 08/17/18 14:20 Dose: 25 mg Ondansetron HCl (Zofran) 4 mg IV Q8H PRN PRN PRN Reason: Nausea Sodium Chloride () 5 - 15 ml IV UD PRN PRN Reason: SALINE FLUSH Last Admin: 08/16/18 18:31 Dose: 10 ml - Past Medical History Past Medical History (Chronic Problems): Chronic Problems (Last Updated 08/17/18 @ 13:56 by Antonette Brown MD) Chronic respiratory failure with hypoxia (Chronic) Chronic renal failure, stage 3 (moderate) (Chronic) 3-4 Hormone replacement therapy (Chronic) Pulmonary hypertension (Chronic) PA pressure 57 in November 2017 Daytime hypersomnia (Chronic) Obesity, morbid, BMI 40.0-49.9 (Chronic) Gout (Chronic) Hypertension (Chronic) History of TIA (transient ischemic attack) (Chronic) 1998 History of kidney cancer (Chronic) S/P nephrectomy - Past Surgical History Surgical History: - - Tonsillectomy, appendectomy, cholecystectomy, bilateral shoulder rotator cuff repair, right elbow fracture with surgery with pin in place, bilateral total knee replacement. Renal cell carcinoma, Surgery for SBO, Single salpingectomy and oophorectomy for ectopic . - Social History Smoking Status: Former smoker Alcohol: Rare Drugs: None - Family History Paternal Family History: Family History (Last Reviewed 08/16/18 @ 18:39 by Violeta Dowling DO) Mother CAD (coronary artery disease) Father Colon cancer History Items: Cancer - Pancreatic CA, age 3838 years old., Diabetes, Heart Disease, Hypertension Maternal Family History: Family History (Last Reviewed 08/16/18 @ 18:39 by Violeta Dowling DO) Mother CAD (coronary artery disease) Father Colon cancer History Items: Heart Disease, Hypertension Review of Systems Constitutional: Denies: Chills, Fever, Weight Change HEENT: Denies: Head Aches, Sinus Congestion, Sinus Drainage Cardiovascular: Denies: Chest Pain, Palpitations Respiratory: Denies: Cough, Shortness of breath at rest, Sputum production Gastrointestinal: Denies: Abdominal Pain, Nausea, Vomiting Genitourinary: Denies: Dysuria Musculoskeletal: Denies: Joint Pain, Joint Tenderness Skin: Denies: Rash, Wounds Neurological: Denies: Numbness, Tingling, Focal weakness Psychiatric: Denies: Anxiety, Depression, Homicidal Ideations, Suicidal Ideations Hematologic/ Lymphatic: Denies: Easy Bruising, Easy Bleeding Patient Problems: Active and Suspected Problems (Last Updated 08/17/18 @ 13:56 by Antonette Brown MD) PEACE (acute kidney injury) (Acute) Acute and chronic respiratory failure with hypoxia (Acute) Acute diastolic (congestive) heart failure (Acute) - Physical Exam General: Alert, Oriented x3, Cooperative HEENT: Atraumatic, PERRLA, EOMI, Normocephalic Neck: Supple, No JVD, Negative Carotid Bruits Lungs: Clear to auscultation, Normal air movement Cardiovascular: Regular rate, No murmurs Abdomen: Bowel Sounds Present, Soft, Non Tender Extremities: No edema, Capillary Refill Less than 3 Seconds Skin: No rashes, No breakdown Musculoskeletal: No Tenderness to Palpation of Joints or Extremities Neurological: Cranial nerves II-XII grossly intact Psych/Mental Status: Normal Affect, Appropriate Vital Signs Temp Pulse Resp BP Pulse Ox 98.4 F 82 19 H 134/78 H 96 08/17/18 15:40 08/17/18 15:40 08/17/18 15:40 08/17/18 15:40 08/17/18 15:40 Oxygen Flow Rate (L/min) 3 Oxygen Delivery Method Nasal Cannula Weight: 116.1 kg Body Mass Index (BMI) 41.7 Orthostatic Vital Signs Start: 08/17/18 14:13 Freq: q24h Status: Active Protocol: Activity Type Activity Date Activity User E-Sign Co-Sign Detail Recorded Client Recorded Date Recorded By Document 08/17/18 14:32 ANG [id number] 08/17/18 14:33 ANG 08/17/18 14:32 Orthostatic Vitals Standing -Blood Pressure (90/60-120/80 mm Hg) 147/70 H -Pulse Rate (60-100 beats/min) 91 Sitting -Blood Pressure (90/60-120/80 mm Hg) 157/74 H -Pulse Rate (60-100 beats/min) 89 Lying -Blood Pressure (90/60-120/80 mm Hg) 154/78 H -Pulse Rate (60-100 beats/min) 88 Intake and Output for Last 24 Hours 08/15/18 08/16/18 08/17/18 23:59 23:59 23:59 Intake Total 667 / 667 290 / 290 Output Total 1050 / 1050 1300 / 1300 Balance -383 / -383 -1010 / -1010 Laboratory Tests Past 24 Hrs 08/16/18 08/17/18 08/17/18 18:46 01:00 06:25 Sodium 146 H Potassium 4.1 Chloride 110 H Carbon Dioxide 26.0 Anion Gap 10 BUN 31 H Creatinine 1.80 H Estim Creat Clear Calc 23.34 Est GFR (MDRD) Af Amer 35 L Est GFR (MDRD) Non-Af 29 L BUN/Creatinine Ratio 17.2 Glucose 94 Calcium 9.0 Phosphorus 2.8 3.1 Magnesium 1.8 1.8 Total Bilirubin 0.70 AST 31 ALT 34 Alkaline Phosphatase 64 Troponin I 0.038 0.036 Total Protein 6.4 Albumin 3.0 L Globulin 3.4 Albumin/Globulin Ratio 0.9 Triglycerides 63 Cholesterol 91 LDL Cholesterol 36 VLDL Cholesterol 13 HDL Cholesterol 42 TSH 3.05 Assessment/Plan All Active Problems (Last Updated 08/17/18 @ 13:56 by Antonette Brown MD) PEACE (acute kidney injury) (Acute) Acute and chronic respiratory failure with hypoxia (Acute) Acute diastolic (congestive) heart failure (Acute) PEACE CKD stage 3 CKD 3 at baseline with creatinine around 1.4 or so. prior nephrectomy. renal USG does not show any hydro. no new meds. No NSAIDs. Bp is ok now. will check Urinalysis to see if any proteinuria present. no changes made for today CHF. volume status looks ok now will arrange follow up in tran office after dc
[2018-08-17 22:32] LABS: Bacteria 0 SEEN /hpf (None Seen); Mucous, Urine 0 SEEN /hpf (<or=2+); Red Blood Cells-Urine 0 SEEN /hpf (0-5); White Blood Cells 0 SEEN /hpf (0-5)
[2018-08-17 22:34] LABS: Color, Urine Yellow (Yellow); Glucose, Dipstick Normal (Normal); Ketone-Dipstick Negative (Negative); Leukocyte Esterase-Dipstick Negative /ul (Negative); Nitrite-Dipstick Negative (Negative); Occult Blood-Urine Negative /ul (Negative); Protein-Dipstick 30 mg/dl (Negative); Urine Bilirubin Dipstick Negative (Negative); Urine Clarity Clear (Clear); Urine Urobilinogen Normal (Normal)
[2018-08-17 22:44] LABS: Squamous Epithelial Cells - UA 0-5 SEEN /hpf (5-10)
--- NOTE | 2018-08-17 23:29 | PCM.PN.BLA ---
Progress Note Patient complains left foot pain and she thinks she is in a gout flare. Patient received Laxis for CHF exacerbation; and lasix can accentuate gout. Patient is requesting a steroid taper but reports insomnia with IV steroids. Nurse reports tenderness of toes of left foot. Will give patient Prednisone 40mg po x 1. NSAIDS not given because of PEACE on CKD. Please evaluate for need of further Gout treatment.
[2018-08-18] VITALS (17 sets, daily range): BP systolic 130–156; BP diastolic 60–78; PULSE 80–108; RESP 16–22; TEMP 36.4–36.8; O2SAT 94–96
[2018-08-18] MEDS: predniSONE 20 MG Tablet 40 MG PO ×2 (00:04→12:59)
[2018-08-18] MEDS: Acetaminophen 325 MG Tablet 650 MG PO (01:32)
--- NOTE | 2018-08-18 05:55 | RAD_ITS ---
STUDY: X-RAY CHEST REASON FOR EXAM: Female, 82 years old. CHF. TECHNIQUE: Single AP portable view of the chest. COMPARISON: Comparison is made with prior study dated August 16, 2018. FINDINGS: EKG records are seen. Since prior study, there has been improved aeration of the left lung base with residual pleural-parenchymal changes although this has improved. Stable blunting of the right costophrenic angle with mild residual CHF. There is moderate cardiac enlargement. Normal mediastinum and awilda. Normal visualized pulmonary arteries. There is atherosclerotic calcification of the aortic arch with tortuosity. There are diffuse degenerative changes of the visualized thoracic spine. There is degenerative osteoarthritis of the bilateral shoulders. There is no demonstrated abnormality of the visualized soft tissue structures of the upper abdomen. RAD/Chest 1 View (Portable) IMPRESSION: Improved aeration of the left lung base as well as improved CHF. Changes persist. Follow-up is recommended. Electronically Signed: Terrell Solano MD at 10:01 EST Tel [phone], Service support ,
[2018-08-18 06:29] LABS: Anion Gap 10 (5-15); BUN 28 mg/dL (7-18); BUN/Creat Ratio 17.8 RATIO (10-20); Calcium,Total 8.9 mg/dL (8.5-10.1); Chloride 112 mmol/L (98-107); Creatinine, Serum 1.57 mg/dL (0.55-1.02); EST Glomerular Filtration Rate 34 mL/min (>60); Est Glom Filt Rate - Afr Amer 41 mL/min (>60); Estimated Creatinine Clearance 26.75 ml/min; Glucose 148 mg/dL (74-106); Potassium 4.5 mmol/L (3.5-5.1); Sodium Level 146 mmol/L (136-145)
[2018-08-18] MEDS: Heparin Injection (Vial) 5,000 UNIT/ML VIAL 5000 UNIT SC ×3 (06:54→22:11)
[2018-08-18] MEDS: hydrALAZINE 25 MG Tablet PO ×3 (06:54→22:11)
[2018-08-18] MEDS: 0.9% NaCl Peripheral Flush Adult/Peds IV (06:54)
[2018-08-18] MEDS: Ipratropium/Albuterol Sulfate 3 ML AMPUL.NEB INHALATION ×3 (07:04→19:30)
--- NOTE | 2018-08-18 07:25 | PCM.PN.REN ---
Patient Problems: Active and Suspected Problems (Last Updated 08/17/18 @ 13:56 by Antonette Brown MD) PEACE (acute kidney injury) (Acute) Acute and chronic respiratory failure with hypoxia (Acute) Acute diastolic (congestive) heart failure (Acute) Subjective: Patient is complaining of left foot pain. Patient thinks she has a gout attack which started last night. No increase in leg edema, no chest pain, breathing is okay. Patient remains on nasal cannula 3.5 L/min - Physical Exam General: Oriented x3 HEENT: Atraumatic Oral: Moist Mucosa Neck: Supple, No JVD Lungs: Clear to auscultation, Normal air movement, No rhonchi, No wheeze Cardiovascular: Regular rate, Regular Rhythm, Normal S1, Normal S2 Abdomen: Bowel Sounds Present, Soft, Non Tender Extremities: No clubbing, No cyanosis, No edema Skin: No rashes Musculoskeletal: No Muscle Wasting Lymphatic: No Cervical, Supraclavicular, or Inguinal Adenopathy Neurological: Cranial nerves II-XII grossly intact, Neuro grossly intact Psych/Mental Status: Normal Affect Vital Signs Temp Pulse Resp BP Pulse Ox 98.2 F 88 16 154/78 H 95 08/18/18 02:31 08/18/18 07:04 08/18/18 07:04 08/18/18 02:31 08/18/18 07:04 Oxygen Flow Rate (L/min) 3 Oxygen Delivery Method Nasal Cannula Weight: 115.5 kg Body Mass Index (BMI) 41.7 Orthostatic Vital Signs Start: 08/17/18 14:13 Freq: q24h Status: Active Protocol: Activity Type Activity Date Activity User E-Sign Co-Sign Detail Recorded Client Recorded Date Recorded By Document 08/17/18 14:32 ANG [id number] 08/17/18 14:33 ANG 08/17/18 14:32 Orthostatic Vitals Standing -Blood Pressure (90/60-120/80) 147/70 H -Pulse Rate (60-100) 91 Sitting -Blood Pressure (90/60-120/80) 157/74 H -Pulse Rate (60-100) 89 Lying -Blood Pressure (90/60-120/80) 154/78 H -Pulse Rate (60-100) 88 Intake and Output for Last 24 Hours 08/16/18 08/17/18 08/18/18 23:59 23:59 23:59 Intake Total 667 / 667 530 / 530 440 / 440 Output Total 1050 / 1050 2700 / 2700 1350 / 1350 Balance -383 / -383 -2170 / -2170 -910 / -910 Laboratory Tests Past 24 Hrs 08/17/18 08/17/18 08/18/18 06:25 21:00 05:35 Sodium 146 H 146 H Potassium 4.1 4.5 Chloride 110 H 112 H Carbon Dioxide 26.0 24.0 Anion Gap 10 10 BUN 31 H 28 H Creatinine 1.80 H 1.57 H Estim Creat Clear Calc 23.34 26.75 Est GFR (MDRD) Af Amer 35 L 41 L Est GFR (MDRD) Non-Af 29 L 34 L BUN/Creatinine Ratio 17.2 17.8 Glucose 94 148 H Calcium 9.0 8.9 Phosphorus 3.1 Magnesium 1.8 Total Bilirubin 0.70 AST 31 ALT 34 Alkaline Phosphatase 64 Total Protein 6.4 Albumin 3.0 L Globulin 3.4 Albumin/Globulin Ratio 0.9 Triglycerides 63 Cholesterol 91 LDL Cholesterol 36 VLDL Cholesterol 13 HDL Cholesterol 42 Urine Color Yellow Urine Clarity Clear Urine pH 6.0 Ur Specific [place] 1.010 Urine Protein 30 H Urine Glucose (UA) Normal Urine Ketones Negative Urine Occult Blood Negative Urine Nitrite Negative Urine Bilirubin Negative Urine Urobilinogen Normal Ur Leukocyte Esterase Negative Urine RBC 0 SEEN Urine WBC 0 SEEN Ur Squamous Epith Cells 0-5 SEEN Urine Bacteria 0 SEEN Urine Mucus 0 SEEN Medical Necessity - Tobacco Use Smoking Status: Former smoker Tobacco Use: Cigarettes Assessment/Plan All Active Problems (Last Updated 08/17/18 @ 13:56 by Antonette Brown MD) PEACE (acute kidney injury) (Acute) Acute and chronic respiratory failure with hypoxia (Acute) Acute diastolic (congestive) heart failure (Acute) 1-acute kidney injury on chronic kidney disease. Baseline creatinine seems around 1.3-1.6. Chronic kidney disease is from nephrectomy due to renal cell carcinoma. UA showed 30 protein. No hematuria no white cell or red cell. I suspected acute kidney injury is from cardiorenal syndrome. Creatinine improved slightly with diuretics. Last creatinine trend 1.80 to 1.57 mg a deciliter. I will start Lasix 40 mg p.o. daily. Please avoid MOISES inhibitor or ARB. 2-CHF decompensation. Improved with Lasix. I will start Lasix 40 mg p.o. daily. Continue low-salt diet and fluid restriction of 1200 daily. 3-hypertension: Blood pressure target is less than 140/90. Blood pressure remains above the target. I will continue the same dose of hydralazine and Norvasc. I will add Lasix 40 mg p.o. daily. Continue monitor blood pressure. 4-left foot pain. Might be due to gout since the patient has a history of this. I will defer management to the primary team. Thank you for the consult. Renal team will continue to follow
[2018-08-18] MEDS: Furosemide 40 MG Tablet PO (08:26)
[2018-08-18] MEDS: Aspirin 325 MG Tablet PO (08:26)
[2018-08-18] MEDS: amLODIPine 10 MG Tablet PO (08:28)
--- NOTE | 2018-08-18 11:49 | PN_ITS ---
<Wendy Cummings - Last Filed: 08/18/18 11:50> Patient Problems: Active and Suspected Problems (Last Updated 08/17/18 @ 13:56 by Antonette Brown MD) PEACE (acute kidney injury) (Acute) Acute and chronic respiratory failure with hypoxia (Acute) Acute diastolic (congestive) heart failure (Acute) Subjective: Patient seen and examined. Complains of left foot pain due to gout. States she does not want to go home today due to the left foot pain. Complains of hand shaking. Reports she has had this previously on steroids. Otherwise patient reports she feels improved. - Physical Exam General: Alert, Oriented x3, Cooperative HEENT: Atraumatic, PERRLA, EOMI, Normocephalic Oral: Moist Mucosa Neck: Supple, No JVD, Negative Carotid Bruits Lungs: Clear to auscultation, Diminished Cardiovascular: Regular rate, Regular Rhythm, Normal S1, Normal S2, No murmurs Abdomen: Bowel Sounds Present, Soft, Non Tender, Non-Distended Extremities: No clubbing, No cyanosis, No edema, Capillary Refill Less than 3 Seconds Skin: No rashes, No breakdown, - - Left great toe redness. Musculoskeletal: No Tenderness to Palpation of Joints or Extremities Neurological: Cranial nerves II-XII grossly intact, Neuro grossly intact Psych/Mental Status: Normal Affect, Appropriate Vital Signs Temp Pulse Resp BP Pulse Ox 98.3 F 96 20 H 130/73 H 94 08/18/18 08:13 08/18/18 11:00 08/18/18 08:13 08/18/18 08:13 08/18/18 08:13 Oxygen Flow Rate (L/min) 3 Oxygen Delivery Method Nasal Cannula Weight: 254 lb 10.142 oz Body Mass Index (BMI) 41.7 Orthostatic Vital Signs Start: 08/17/18 14:13 Freq: q24h Status: Active Protocol: Activity Type Activity Date Activity User E-Sign Co-Sign Detail Recorded Client Recorded Date Recorded By Document 08/17/18 14:32 ANG [id number] 08/17/18 14:33 ANG 08/17/18 14:32 Orthostatic Vitals Standing -Blood Pressure (90/60-120/80) 147/70 H -Pulse Rate (60-100) 91 Sitting -Blood Pressure (90/60-120/80) 157/74 H -Pulse Rate (60-100) 89 Lying -Blood Pressure (90/60-120/80) 154/78 H -Pulse Rate (60-100) 88 Intake and Output for Last 24 Hours 08/16/18 08/17/18 08/18/18 23:59 23:59 23:59 Intake Total 667 / 667 530 / 530 440 / 440 Output Total 1050 / 1050 2700 / 2700 1350 / 1350 Balance -383 / -383 -2170 / -2170 -910 / -910 Laboratory Tests Past 24 Hrs 08/17/18 08/18/18 21:00 05:35 Sodium 146 H Potassium 4.5 Chloride 112 H Carbon Dioxide 24.0 Anion Gap 10 BUN 28 H Creatinine 1.57 H Estim Creat Clear Calc 26.75 Est GFR (MDRD) Af Amer 41 L Est GFR (MDRD) Non-Af 34 L BUN/Creatinine Ratio 17.8 Glucose 148 H Calcium 8.9 Urine Color Yellow Urine Clarity Clear Urine pH 6.0 Ur Specific [place] 1.010 Urine Protein 30 H Urine Glucose (UA) Normal Urine Ketones Negative Urine Occult Blood Negative Urine Nitrite Negative Urine Bilirubin Negative Urine Urobilinogen Normal Ur Leukocyte Esterase Negative Urine RBC 0 SEEN Urine WBC 0 SEEN Ur Squamous Epith Cells 0-5 SEEN Urine Bacteria 0 SEEN Urine Mucus 0 SEEN Medical Necessity - Tobacco Use Smoking Status: Former smoker Tobacco Use: Cigarettes Assessment/Plan All Active Problems (Last Updated 08/17/18 @ 13:56 by Antonette Brown MD) PEACE (acute kidney injury) (Acute) Acute and chronic respiratory failure with hypoxia (Acute) Acute diastolic (congestive) heart failure (Acute) 1. Acute diastolic CHF-chest x-ray on admission with interstitial markings suspicious for edema and/or atypical infiltrates. BNP 1349. Strict I&O. Daily weight. Fluid restriction. Echocardiogram November 2017 with EF 60%, pulmonary artery systolic pressure 59 mmHg, moderate pulmonary hypertension, mild stage I diastolic dysfunction. Patient received IV Lasix x2. Repeat chest x-ray this morning shows improved aeration of the left lung base as well as improved CHF. Continue Lasix 40 mg p.o. daily. 2. Chronic hypoxic respiratory failure due to chronic COPD-patient chronically wears 4 L nasal cannula with ambulation. Currently on 3 L nasal cannula at rest. Continue supplement oxygen to maintain O2 sat above 90%. Patient follows with pulmonary medicine as outpatient. 3. Acute kidney injury on chronic kidney disease stage III -history of nephrectomy due to renal cell carcinoma. Baseline creatinine 1.3-1.4. Current creatinine 1.8 on admission. Renal ultrasound showed normal ultrasound of the left kidney and urinary bladder. Status post right nephrectomy. Nephrology consulted. Patient does not currently follow with nephrology as outpatient. Creatinine at baseline. Trend BMP. 4. Hypertension-poorly controlled. Home HCTZ regimen on hold given PEACE. Started on hydralazine 25 mg p.o. 3 times daily. Add amlodipine 10 mg daily. Continue to monitor. Blood pressure improved. 5. Acute gout gout, left foot-started on prednisone 40 mg daily times 5 days. 6. History of TIA-continue aspirin. 7. Morbid obesity-encouraged diet lifestyle modifications. DVT prophylaxis-heparin subcu, SCDs Discharge planning: Plan for discharge home tomorrow on chronic home oxygen pending acute gout flare improved. This patient was seen by ZAK Donaldson under the supervision of Dr. Brown. <Antonette Brown E - Last Filed: 08/18/18 12:15> - Physical Exam Vital Signs Temp Pulse Resp BP Pulse Ox 98.3 F 96 20 H 130/73 H 94 08/18/18 08:13 08/18/18 11:00 08/18/18 08:13 08/18/18 08:13 08/18/18 08:13 Oxygen Flow Rate (L/min) 3 Oxygen Delivery Method Nasal Cannula Weight: 254 lb 10.142 oz Body Mass Index (BMI) 41.7 Orthostatic Vital Signs Start: 08/17/18 14:13 Freq: q24h Status: Active Protocol: Activity Type Activity Date Activity User E-Sign Co-Sign Detail Recorded Client Recorded Date Recorded By Document 08/17/18 14:32 ANG [id number] 08/17/18 14:33 ANG 08/17/18 14:32 Orthostatic Vitals Standing -Blood Pressure (90/60-120/80) 147/70 H -Pulse Rate (60-100) 91 Sitting -Blood Pressure (90/60-120/80) 157/74 H -Pulse Rate (60-100) 89 Lying -Blood Pressure (90/60-120/80) 154/78 H -Pulse Rate (60-100) 88 Intake and Output for Last 24 Hours 08/16/18 08/17/18 08/18/18 23:59 23:59 23:59 Intake Total 667 / 667 530 / 530 440 / 440 Output Total 1050 / 1050 2700 / 2700 1350 / 1350 Balance -383 / -383 -2170 / -2170 -910 / -910 Laboratory Tests Past 24 Hrs 08/17/18 08/18/18 21:00 05:35 Sodium 146 H Potassium 4.5 Chloride 112 H Carbon Dioxide 24.0 Anion Gap 10 BUN 28 H Creatinine 1.57 H Estim Creat Clear Calc 26.75 Est GFR (MDRD) Af Amer 41 L Est GFR (MDRD) Non-Af 34 L BUN/Creatinine Ratio 17.8 Glucose 148 H Calcium 8.9 Urine Color Yellow Urine Clarity Clear Urine pH 6.0 Ur Specific [place] 1.010 Urine Protein 30 H Urine Glucose (UA) Normal Urine Ketones Negative Urine Occult Blood Negative Urine Nitrite Negative Urine Bilirubin Negative Urine Urobilinogen Normal Ur Leukocyte Esterase Negative Urine RBC 0 SEEN Urine WBC 0 SEEN Ur Squamous Epith Cells 0-5 SEEN Urine Bacteria 0 SEEN Urine Mucus 0 SEEN Assessment/Plan Hospitalist note: I am seeing this patient in conjunction with Wendy Cummings. I independently seen and examined the patient. Progress note above, laboratory data and imaging studies reviewed and I concur with the above treatment plan. Today, she complai keri of left foot pain, was given dose of prednisone last night for gout. Breathing is getting better. She complains of shaking spells. Denied any other significant complaints. Her vital signs are stable, afebrile. - Physical Exam General: Alert, Oriented x3, Cooperative, No apparent distress. HEENT: Atraumatic, PERRLA, EOMI. Neck: Supple, No JVD, Negative Carotid Bruits, Trachea Midline, Thyroid Normal. Lungs: Decreased breath sounds at the bases, bilateral basal fine crackles, no rhonchi, No wheeze, No rales. Cardiovascular: Regular rate, Regular Rhythm, Normal S1, Normal S2, PMI Normal. Abdomen: Bowel Sounds Present, Soft, Non Tender, Non-Distended, No Hepato- splenomegaly. Extremities: No clubbing, No cyanosis, No edema. Mild swelling on the left lateral foot, tender. Skin: No rashes, No breakdown Neurological: Neuro grossly intact Vital Signs are stable. Assessment and plan: #1 acute on chronic diastolic CHF: She is on oral Lasix, symptoms improved. She is down on 3 L of oxygen, she was at 4 L at home. She had 2D echocardiogram on November, that revealed EF 60%, moderate pulmonary hypertension and stage I diastolic dysfunction. She is not on MOISES inhibitors because of chronic kidney disease. Kidney function improved today. Plan to potassium treatment, DC home tomorrow #2 acute kidney injury, stage III chronic kidney disease: Her baseline kidney function has been around 1-1.4 mg/dL. Admission creatinine was 1.63 and it went up to 1.80. Today, creatinine is down to 1.57. Ultrasound kidney reviewed, showed unremarkable left kidney, status post right nephrectomy. #3 chronic hypoxic respiratory failure: Due to chronic COPD, patient was on oxygen at home at 4 L with ambulation. Today, she is on 3 L, maintaining pulse ox at 95%. #4 uncontrolled hypertension: Blood pressure under better control. HCTZ held because of acute kidney injury. Continue Norvasc and hydralazine. #5 acute gouty arthritis of the left foot: Started on prednisone 40 mg, plan to keep prednisone for 5 days. #6 other chronic medical problems: Stable, continue current medications as above. This note was generated with [employer] dictation software. It may contain incorrect words, spelling, and punctuation that were not noted in checking the note before signing. Code Visit Inpatient E&M: 39587 Subs Hosp L2
[2018-08-19] VITALS (8 sets, daily range): BP systolic 134–159; BP diastolic 76–78; PULSE 86–100; RESP 18–22; TEMP 36.6–36.8; O2SAT 92–95
[2018-08-19] MEDS: hydrALAZINE 25 MG Tablet PO (05:20)
[2018-08-19] MEDS: Heparin Injection (Vial) 5,000 UNIT/ML VIAL 5000 UNIT SC (05:20)
[2018-08-19 05:39] LABS: Anion Gap 8 (5-15); BUN 31 mg/dL (7-18); BUN/Creat Ratio 19.4 RATIO (10-20); Calcium,Total 8.6 mg/dL (8.5-10.1); Chloride 111 mmol/L (98-107); EST Glomerular Filtration Rate 33 mL/min (>60); Est Glom Filt Rate - Afr Amer 40 mL/min (>60); Estimated Creatinine Clearance 26.25 ml/min; Glucose 123 mg/dL (74-106); Potassium 4.4 mmol/L (3.5-5.1); Sodium Level 146 mmol/L (136-145)
[2018-08-19] MEDS: Ipratropium/Albuterol Sulfate 3 ML AMPUL.NEB INHALATION (07:23)
--- NOTE | 2018-08-19 08:00 | DCINST_ITS ---
- Discharge Diagnoses Current Active Problems: Current Active and Chronic Problems (Last Updated 08/17/18 @ 13:56 by Antonette Brown MD) PEACE (acute kidney injury) (Acute) Acute and chronic respiratory failure with hypoxia (Acute) Acute diastolic (congestive) heart failure (Acute) Chronic renal failure, stage 3 (moderate) (Chronic) 3-4 Hormone replacement therapy (Chronic) Pulmonary hypertension (Chronic) PA pressure 57 in November 2017 You will use the following diet at home:: Cardiac Your food should be the consistency of: Regular Discharge Activity: Return to Normal Activity Weight Bearing Status: Weight bearing as tolerated Call your doctor if you observe: Fever of 101 or Higher, Shortness of breath, Dizziness, Fainting spells, Chest pain, Increased palpitations (irregular heartbeat), Uncontrolled pain Allergies/Adverse Reactions: Allergies clindamycin [From Cleocin] Allergy (Verified 04/11/18 20:07) Unknown oxycodone HCl [From OxyContin] Allergy (Verified 04/11/18 20:07) Anaphylaxis Sulfa (Sulfonamide Antibiotics) Allergy (Verified 04/11/18 20:07) Anaphylaxis vancomycin Allergy (Verified 04/11/18 20:07) Hives guaifenesin [From Entex LA] Adverse Reaction (Verified 04/11/18 20:07) Unknown phenylephrine [From Entex LA] Adverse Reaction (Verified 04/11/18 20:07) Unknown phenylpropanolamine [From Entex LA] Adverse Reaction (Verified 04/11/18 20:07) Unknown BETA BLOCKERS Adverse Reaction (Uncoded 04/11/18 20:07) Unknown Medications to take at Discharge Estrogens, Conjugated [Premarin] 0.3 mg PO DAILY 04/04/15 MedroxyPROGESTERone [Provera] 5 mg PO DAILY 05/18/15 Aspirin 325 mg PO DAILY@0800 04/12/18 Felodipine [Plendil] 10 mg PO DAILY 08/16/18 Umeclidinium Brm/Vilanterol Tr [Anoro Ellipta 62.5-25 Mcg INH] 1 puff INHALATION DAILY 08/16/18 Furosemide [Lasix] 40 mg PO DAILY #30 tablet 08/19/18 hydrALAZINE [Apresoline] 25 mg PO TID #90 tablet 08/19/18 predniSONE tablet 40 mg PO DAILY@0800 #8 tablet 08/19/18 The following prescriptions were given: Furosemide [Lasix] 40 mg PO DAILY #30 tablet predniSONE tablet 40 mg PO DAILY@0800 #8 tablet hydrALAZINE [Apresoline] 25 mg PO TID #90 tablet Orders to be completed after discharge: Basic Metabolic Profile (BMP) Time Frame: 1 Week, Location: Laboratory Primary Care Physician: Dustin Mendieta MD [Primary Care Provider] - Please follow up with your Primary Care Physician in: 1 week. Test Results: Test results from this visit will be discussed in further detail at your follow- up appointment, if applicable. Please Follow Up With: Ferdinand Aleman MD When: 2 weeks.
[2018-08-19] MEDS: amLODIPine 10 MG Tablet PO (08:14)
[2018-08-19] MEDS: predniSONE 20 MG Tablet 40 MG PO (08:14)
[2018-08-19] MEDS: Aspirin 325 MG Tablet PO (08:14)
[2018-08-19] MEDS: Furosemide 40 MG Tablet PO (08:14)
--- NOTE | 2018-08-19 12:00 | PCM.DC.SUM ---
Discharge Date and Diagnosis Date of Admission: 08/16/18 Date of Discharge: 08/19/18 - Primary Discharge Diagnosis #1 acute diastolic CHF. #2 acute kidney injury on top of stage III chronic kidney disease. #3 uncontrolled hypertension. #4 acute gouty arthritis of the left foot. - Secondary Discharge Diagnosis Chronic Problems (Last Updated 08/17/18 @ 13:56 by Antonette Brown MD) Chronic respiratory failure with hypoxia (Chronic) Chronic renal failure, stage 3 (moderate) (Chronic) 3-4 Hormone replacement therapy (Chronic) Pulmonary hypertension (Chronic) PA pressure 57 in November 2017 Daytime hypersomnia (Chronic) Obesity, morbid, BMI 40.0-49.9 (Chronic) Gout (Chronic) Hypertension (Chronic) History of TIA (transient ischemic attack) (Chronic) 1998 History of kidney cancer (Chronic) S/P nephrectomy Hospital Course and Treatment Imaging Results: Clinical Impression(s) from Imaging Studies Chest X-Ray 08/16/18 15:02 IMPRESSION: Diffuse increased interstitial markings suspicious for either edema and/or atypical infiltrates superimposed on underlying chronic lung disease. There are bilateral lower lobe opacities left greater than right which suspicious for effusions and atelectasis. Underlying infection is not excluded. Mild cardiomegaly. Electronically Signed: Zonia Foreman MD at 15:43 EST Tel , Service support , Renal Ultrasound 08/17/18 05:55 IMPRESSION: Normal ultrasound of the left kidney and urinary bladder. Status post right nephrectomy. Electronically Signed: Zonia Foreman MD at 15:37 EST Tel , Service support , Chest X-Ray 08/18/18 05:55 IMPRESSION: Improved aeration of the left lung base as well as improved CHF. Changes persist. Follow-up is recommended. Electronically Signed: Terrell Solano MD at 10:01 EST Tel [phone], Service support , Dr. Bone, nephrology. Operations: None Procedures: None Summary of Care Provided: Patient seen and examined on the discharge and appeared to be stable to be discharged home. She has no more symptoms of shortness of breath. She is feeling better. Left foot pain improved. Her vital signs are stable. The patient is a 82 year old F presented to the ED because of shortness of breath and dizziness, found to have findings consistent with acute diastolic CHF and acute kidney injury on top of stage III chronic kidney disease. Her chest x-ray showed findings consistent with interstitial pulmonary vascular congestion. Her BNP was elevated at 1349. She had 2D echocardiogram done on November, that showed ejection fraction of 60%, moderate pulmonary hypertension and mild stage I diastolic dysfunction. Patient was treated with IV Lasix and she was started on hydralazine because of uncontrolled hypertension. She was not on MOISES inhibitors because of chronic kidney disease. She was found to have acute kidney injury on top of stage III chronic kidney disease. Her baseline creatinine has been around 1.4 mg/dL and on admission, her creatinine was 1.80 which is up from her baseline. Nephrology consulted and recommended to keep patient on oral Lasix. Renal ultrasound performed and revealed normal left kidney, status post right nephrectomy which was done for renal cell carcinoma years ago. During this hospital stay, patient developed left foot pain which she is attributed to acute gouty arthritis. She was started on a prednisone and the symptoms improved. With above-mentioned treatment, patient symptoms improved, shortness of breath improved, we were able to wean her down of oxygen to 3 L although she was on 4 L at home, continued on prednisone for acute gouty arthritis of the left foot. Because of uncontrolled hypertension, she was started on hydralazine 3 times daily. Patient discharged home in a stable medical condition, discharged on prednisone 40 mg daily for 4 days more for acute gout of the left foot, started on hydralazine 3 times daily and Lasix 40 mg p.o. daily, continued on felodipine and her other home medications without any changes, order given to repeat BMP in 1 week, plan to follow-up with PCP in 1 week, follow-up with nephrology in 2 weeks. - Physical Exam General: Alert, Cooperative, No apparent distress HEENT: Atraumatic, PERRLA, EOMI, Normocephalic Oral: Moist Mucosa, No Gingival or Mucosal Lesions/ Ulcerations Neck: Supple, No JVD, Negative Carotid Bruits, Trachea Midline, Thyroid Normal Size and Texture Lungs: Clear to auscultation, No rhonchi, No wheeze, No rales, Diminished Cardiovascular: Regular rate, Regular Rhythm, Normal S1, Normal S2 Abdomen: Bowel Sounds Present, Soft, Non Tender, Non-Distended, No Hepato-splenomegaly Extremities: No clubbing, No cyanosis, No edema Skin: No rashes, No breakdown Lymphatic: No Cervical, Supraclavicular, or Inguinal Adenopathy Neurological: Cranial nerves II-XII grossly intact, Neuro grossly intact Psych/Mental Status: Normal Affect, Appropriate Vital Signs Temp Pulse Resp BP Pulse Ox 98.0 F 98 18 159/76 H 95 08/19/18 11:31 08/19/18 11:31 08/19/18 11:31 08/19/18 11:31 08/19/18 11:31 Oxygen Flow Rate (L/min) 3 Oxygen Delivery Method Room Air Weight: 258 lb 9.636 oz Body Mass Index (BMI) 41.7 Intake and Output for Last 24 Hours 08/17/18 08/18/18 08/19/18 23:59 23:59 23:59 Intake Total 530 / 530 1040 / 1040 120 / 120 Output Total 2700 / 2700 2100 / 2100 200 / 200 Balance -2170 / -2170 -1060 / -1060 -80 / -80 Laboratory Tests Past 24 Hrs 08/19/18 05:00 Sodium 146 H Potassium 4.4 Chloride 111 H Carbon Dioxide 27.0 Anion Gap 8 BUN 31 H Creatinine 1.60 H Estim Creat Clear Calc 26.25 Est GFR (MDRD) Af Amer 40 L Est GFR (MDRD) Non-Af 33 L BUN/Creatinine Ratio 19.4 Glucose 123 H Calcium 8.6 Discharge Activity: Return to Normal Activity Weight Bearing Status: Weight bearing as tolerated Call your doctor if you observe: Fever of 101 or Higher, Shortness of breath, Dizziness, Fainting spells, Chest pain, Increased palpitations (irregular heartbeat), Uncontrolled pain Home Medications: Medications to take at Discharge Estrogens, Conjugated [Premarin] 0.3 mg PO DAILY 04/04/15 MedroxyPROGESTERone [Provera] 5 mg PO DAILY 05/18/15 Aspirin 325 mg PO DAILY@0800 04/12/18 Felodipine [Plendil] 10 mg PO DAILY 08/16/18 Umeclidinium Brm/Vilanterol Tr [Anoro Ellipta 62.5-25 Mcg INH] 1 puff INHALATION DAILY 08/16/18 Furosemide [Lasix] 40 mg PO DAILY #30 tablet 08/19/18 hydrALAZINE [Apresoline] 25 mg PO TID #90 tablet 08/19/18 predniSONE tablet 40 mg PO DAILY@0800 #8 tablet 08/19/18 Following Prescrptions Were Given to Patient: Furosemide [Lasix] 40 mg PO DAILY #30 tablet predniSONE tablet 40 mg PO DAILY@0800 #8 tablet hydrALAZINE [Apresoline] 25 mg PO TID #90 tablet Other Amb Orders: Basic Metabolic Profile (BMP) Time Frame: 1 Week, Location: Laboratory Primary Care Physician: Dustin Mendieta MD [Primary Care Provider] - Please follow up with your Primary Care Physician in: 1 week. Please Follow Up With: Ferdinand Aleman MD When: 2 weeks. Please Follow Up With: Dustin Mendieta MD Minutes spent on discharge:: 32 Patient Condition:: Stable Medical Necessity - Tobacco Use Smoking Status: Former smoker Tobacco Use: Cigarettes Meaningful Use Info Meaningful Use Diagnoses (Choose all that apply): CHF - CHF MOISES/ARB ordered at discharge?: No Reason MOISES/ARB not ordered?: Worsening renal function Documented LVEF (%): 60 Code Visit Inpatient E&M: 89522 Disch Hosp
--- NOTE | 2018-08-19 12:07 | DS.PCM_ITS ---
Discharge Date and Diagnosis Date of Admission: 08/16/18 Date of Discharge: 08/19/18 - Primary Discharge Diagnosis #1 acute diastolic CHF. #2 acute kidney injury on top of stage III chronic kidney disease. #3 uncontrolled hypertension. #4 acute gouty arthritis of the left foot. - Secondary Discharge Diagnosis Chronic Problems (Last Updated 08/17/18 @ 13:56 by Antonette Brown MD) Chronic respiratory failure with hypoxia (Chronic) Chronic renal failure, stage 3 (moderate) (Chronic) 3-4 Hormone replacement therapy (Chronic) Pulmonary hypertension (Chronic) PA pressure 57 in November 2017 Daytime hypersomnia (Chronic) Obesity, morbid, BMI 40.0-49.9 (Chronic) Gout (Chronic) Hypertension (Chronic) History of TIA (transient ischemic attack) (Chronic) 1998 History of kidney cancer (Chronic) S/P nephrectomy Hospital Course and Treatment Imaging Results: Clinical Impression(s) from Imaging Studies Chest X-Ray 08/16/18 15:02 IMPRESSION: Diffuse increased interstitial markings suspicious for either edema and/or atypical infiltrates superimposed on underlying chronic lung disease. There are bilateral lower lobe opacities left greater than right which suspicious for effusions and atelectasis. Underlying infection is not excluded. Mild cardiomegaly. Electronically Signed: Zonia Foreman MD at 15:43 EST Tel , Service support , Renal Ultrasound 08/17/18 05:55 IMPRESSION: Normal ultrasound of the left kidney and urinary bladder. Status post right nephrectomy. Electronically Signed: Zonia Foreman MD at 15:37 EST Tel , Service support , Chest X-Ray 08/18/18 05:55 IMPRESSION: Improved aeration of the left lung base as well as improved CHF. Changes persist. Follow-up is recommended. Electronically Signed: Terrell Solano MD at 10:01 EST Tel [phone], Service support , Dr. Bone, nephrology. Operations: None Procedures: None Summary of Care Provided: Patient seen and examined on the discharge and appeared to be stable to be discharged home. She has no more symptoms of shortness of breath. She is feeling better. Left foot pain improved. Her vital signs are stable. The patient is a 82 year old F presented to the ED because of shortness of breath and dizziness, found to have findings consistent with acute diastolic CHF and acute kidney injury on top of stage III chronic kidney disease. Her chest x-ray showed findings consistent with interstitial pulmonary vascular congestion. Her BNP was elevated at 1349. She had 2D echocardiogram done on November, that showed ejection fraction of 60%, moderate pulmonary hypertension and mild stage I diastolic dysfunction. Patient was treated with IV Lasix and she was started on hydralazine because of uncontrolled hypertension. She was not on OMISES inhibitors because of chronic kidney disease. She was found to have acute kidney injury on top of stage III chronic kidney disease. Her baseline creatinine has been around 1.4 mg/dL and on admission, her creatinine was 1.80 which is up from her baseline. Nephrology consulted and recommended to keep patient on oral Lasix. Renal ultrasound performed and revealed normal left kidney, status post right nephrectomy which was done for renal cell carcinoma years ago. During this hospital stay, patient developed left foot pain which she is attributed to acute gouty arthritis. She was started on a prednisone and the symptoms improved. With above-mentioned treatment, patient symptoms improved, shortness of breath improved, we were able to wean her down of oxygen to 3 L although she was on 4 L at home, continued on prednisone for acute gouty arthritis of the left foot. Because of uncontrolled hypertension, she was started on hydralazine 3 times daily. Patient discharged home in a stable medical condition, discharged on prednisone 40 mg daily for 4 days more for acute gout of the left foot, started on hydralazine 3 times daily and Lasix 40 mg p.o. daily, continued on felodipine and her other home medications without any changes, order given to repeat BMP in 1 week, plan to follow-up with PCP in 1 week, follow-up with nephrology in 2 weeks. - Physical Exam General: Alert, Cooperative, No apparent distress HEENT: Atraumatic, PERRLA, EOMI, Normocephalic Oral: Moist Mucosa, No Gingival or Mucosal Lesions/ Ulcerations Neck: Supple, No JVD, Negative Carotid Bruits, Trachea Midline, Thyroid Normal Size and Texture Lungs: Clear to auscultation, No rhonchi, No wheeze, No rales, Diminished Cardiovascular: Regular rate, Regular Rhythm, Normal S1, Normal S2 Abdomen: Bowel Sounds Present, Soft, Non Tender, Non-Distended, No Hepato- splenomegaly Extremities: No clubbing, No cyanosis, No edema Skin: No rashes, No breakdown Lymphatic: No Cervical, Supraclavicular, or Inguinal Adenopathy Neurological: Cranial nerves II-XII grossly intact, Neuro grossly intact Psych/Mental Status: Normal Affect, Appropriate Vital Signs Temp Pulse Resp BP Pulse Ox 98.0 F 98 18 159/76 H 95 08/19/18 11:31 08/19/18 11:31 08/19/18 11:31 08/19/18 11:31 08/19/18 11:31 Oxygen Flow Rate (L/min) 3 Oxygen Delivery Method Room Air Weight: 258 lb 9.636 oz Body Mass Index (BMI) 41.7 Intake and Output for Last 24 Hours 08/17/18 08/18/18 08/19/18 23:59 23:59 23:59 Intake Total 530 / 530 1040 / 1040 120 / 120 Output Total 2700 / 2700 2100 / 2100 200 / 200 Balance -2170 / -2170 -1060 / -1060 -80 / -80 Laboratory Tests Past 24 Hrs 08/19/18 05:00 Sodium 146 H Potassium 4.4 Chloride 111 H Carbon Dioxide 27.0 Anion Gap 8 BUN 31 H Creatinine 1.60 H Estim Creat Clear Calc 26.25 Est GFR (MDRD) Af Amer 40 L Est GFR (MDRD) Non-Af 33 L BUN/Creatinine Ratio 19.4 Glucose 123 H Calcium 8.6 Discharge Activity: Return to Normal Activity Weight Bearing Status: Weight bearing as tolerated Call your doctor if you observe: Fever of 101 or Higher, Shortness of breath, Dizziness, Fainting spells, Chest pain, Increased palpitations (irregular heartbeat), Uncontrolled pain Home Medications: Medications to take at Discharge Estrogens, Conjugated [Premarin] 0.3 mg PO DAILY 04/04/15 MedroxyPROGESTERone [Provera] 5 mg PO DAILY 05/18/15 Aspirin 325 mg PO DAILY@0800 04/12/18 Felodipine [Plendil] 10 mg PO DAILY 08/16/18 Umeclidinium Brm/Vilanterol Tr [Anoro Ellipta 62.5-25 Mcg INH] 1 puff INHALATION DAILY 08/16/18 Furosemide [Lasix] 40 mg PO DAILY #30 tablet 08/19/18 hydrALAZINE [Apresoline] 25 mg PO TID #90 tablet 08/19/18 predniSONE tablet 40 mg PO DAILY@0800 #8 tablet 08/19/18 Following Prescrptions Were Given to Patient: Furosemide [Lasix] 40 mg PO DAILY #30 tablet predniSONE tablet 40 mg PO DAILY@0800 #8 tablet hydrALAZINE [Apresoline] 25 mg PO TID #90 tablet Other Amb Orders: Basic Metabolic Profile (BMP) Time Frame: 1 Week, Location: Laboratory Primary Care Physician: Dustin Mendieta MD [Primary Care Provider] - Please follow up with your Primary Care Physician in: 1 week. Please Follow Up With: Ferdinand Aleman MD When: 2 weeks. Please Follow Up With: Dustin Mendieta MD Minutes spent on discharge:: 32 Patient Condition:: Stable Medical Necessity - Tobacco Use Smoking Status: Former smoker Tobacco Use: Cigarettes Meaningful Use Info Meaningful Use Diagnoses (Choose all that apply): CHF - CHF MOISES/ARB ordered at discharge?: No Reason MOISES/ARB not ordered?: Worsening renal function Documented LVEF (%): 60 Code Visit Inpatient E&M: 88806 Disch Hosp
--- NOTE | 2018-08-20 13:24 | CASEMGMT ---
BRUNO JEFFERY Discharge F/U Phone Call LACE: 12 Strata: 4 Discharge date: 08/19/18 Call date: 08/20/18 Call time: 1325 Duration: 3 minutes Admission dx: Acute CHF, Acute on chronic respiratory failure w/ hypoxemia Pt states 'doing good' since discharge. Pt states no questions regarding discharge instructions or medications at this time. Pt states has first f/u appt scheduled for next thursday and plans on keeping that appt. Pt states 'all your help are angels and I have never had such good care.' Pt states no further questions/concerns/needs at this time. SStaten BRUNO JEFFERY
--- OUTSIDE RECORDS SUMMARY | 2018-10-02 21:37 | XMS RPT_ITS ---
:1935 Author Organization [place] Support Name Relationship Address Phone R Unavailable Unavailable Unavailable BRIGID STEVENSON Unavailable [address] + [place] [address] STEVENSON, TILA Unavailable [address] + [place] [address] R Unavailable Unavailable Unavailable VIRAL STEVENSONIN Unavailable [address] + [place] [address] STEVENSON, TILA Unavailable [address] + [place] [address] VIRAL STEVENSONIN Unavailable Unavailable + STEVENSONVIRAL HENRYIN Unavailable Unavailable + STEVENSONVIRAL HENRYIN Unavailable Unavailable + R Unavailable Unavailable Unavailable VIRAL STEVENSONIN Unavailable [address] + [place] [address] STEVENSON, TILA Unavailable [address] + [place] [address] R Unavailable Unavailable Unavailable VIRAL STEVENSONIN Unavailable [address] + [place] [address] STEVENSON, TILA Unavailable [address] + [place] [address] R Unavailable Unavailable Unavailable VIRAL STEVENSONIN Unavailable [address] + [place] [address] STEVENSON, TILA Unavailable [address] + [place] [address] R Unavailable Unavailable Unavailable VIRAL STEVENSONIN Unavailable [address] + [place] [address] STEVENSON, TILA Unavailable [address] + [place] [address] R Unavailable Unavailable Unavailable STEVENSON, BRIGID Unavailable [address] + [place] [address] STEVENSON, TILA Unavailable [address] + [place] [address] R Unavailable Unavailable Unavailable STEVENSON, BRIGID Unavailable [address] + [place] [address] STEVENSON, TILA Unavailable [address] + [place] [address] R Unavailable Unavailable Unavailable STEVENSON, BRIGID Unavailable [address] + [place] [address] STEVENSON, TILA Unavailable [address] + [place] [address] R Unavailable Unavailable Unavailable STEVENSON, BRIGID Unavailable [address] + [place] [address] STEVENSON, TILA Unavailable [address] + [place] [address] R Unavailable Unavailable Unavailable STEVENSON, BRIGID Unavailable [address] + [place] [address] STEVENSON, TILA Unavailable [address] + [place] [address] R Unavailable Unavailable Unavailable STEVENSON, BRIGID Unavailable [address] + [place] [address] STEVENSON, TILA Unavailable [address] + [place] [address] STEVENSON, BRIIGD Unavailable Unavailable + STEVENSON, BRIGID Unavailable Unavailable + STEVENSON, BRIGID Unavailable Unavailable + STEVENSON, BRIGID Unavailable Unavailable + STEVENSON, BRIGID Unavailable Unavailable + STEVENSON, BRIGID Unavailable Unavailable + R Unavailable Unavailable Unavailable STEVENSON, BRIGID Unavailable [address] + [place] [address] STEVENSON, TILA Unavailable [address] + [place] [address] R Unavailable Unavailable Unavailable STEVENSON, BRIGID Unavailable [address] + [place] [address] STEVENSON, TILA Unavailable [address] + [place] [address] R Unavailable Unavailable Unavailable STEVENSON, BRIGID Unavailable [address] + [place] [address] STEVENSON, TILA Unavailable [address] + [place] [address] R Unavailable Unavailable Unavailable STEVENSON, BRIGID Unavailable [address] + [place] [address] STEVENSON, TILA Unavailable [address] + [place] [address] R Unavailable Unavailable Unavailable STEVENSON, BRIGID Unavailable [address] + [place] [address] STEVENSON, TILA Unavailable [address] + [place] [address] R Unavailable Unavailable Unavailable STEVENSON, BRIGID Unavailable [address] + [place] [address] STEVENSON, TILA Unavailable [address] + [place] [address] R Unavailable Unavailable Unavailable STEVENSON, BRIGID Unavailable [address] + [place] [address] STEVENSON, TILA Unavailable [address] + [place] [address] R Unavailable Unavailable Unavailable STEVENSON, BRIGID Unavailable [address] + [place] [address] STEVENSON, TILA Unavailable [address] + [place] [address] R Unavailable Unavailable Unavailable STEVENSON, BRIGID Unavailable [address] + [place] [address] STEVENSON, TILA Unavailable [address] + [place] [address] R Unavailable Unavailable Unavailable STEVENSON, BRIGID Unavailable [address] + [place] [address] STEVENSON, TILA Unavailable [address] + [place] [address] R Unavailable Unavailable Unavailable STEVENSON, BRIGID Unavailable [address] + [place] [address] STEVENSON, TILA Unavailable [address] + [place] [address] R Unavailable Unavailable Unavailable STEVENSON, BRIGID Unavailable [address] + [place] [address] STEVENSON, TILA Unavailable [address] + [place] [address] R Unavailable Unavailable Unavailable STEVENSON, BRIGID Unavailable [address] + [place] [address] STEVENSON, TILA Unavailable [address] + [place] [address] R Unavailable Unavailable Unavailable STEVENSON, BRIGID Unavailable [address] + [place] [address] STEVENSON, TILA Unavailable [address] + [place] [address] R Unavailable Unavailable Unavailable STEVENSON, BRIGID Unavailable [address] + [place] [address] STEVENSON, TILA Unavailable [address] + [place] [address] R Unavailable Unavailable Unavailable STEVENSON, BRIGID Unavailable [address] + [place] [address] STEVENSON, TILA Unavailable [address] + [place] [address] R Unavailable Unavailable Unavailable STEVENSON, BRIGID Unavailable [address] + [place] [address] STEVENSON, TILA Unavailable [address] + [place] [address] R Unavailable Unavailable Unavailable STEVENSON, BRIGID Unavailable [address] + [place] [address] STEVENSONWILFRIDEN Unavailable [address] + [place] [address] R Unavailable Unavailable Unavailable STEVENSONVIRALIN Unavailable [address] + [place] [address] STEVENSONWILFRIDEN Unavailable [address] + [place] [address] R Unavailable Unavailable Unavailable STEVENSONVIRALIN Unavailable [address] + [place] [address] STEVENSONWILFRIDEN Unavailable [address] + [place] [address] R Unavailable Unavailable Unavailable STEVENSONVIRALIN Unavailable [address] + [place] [address] STEVENSONWILFRIDEN Unavailable [address] + [place] [address] R Unavailable Unavailable Unavailable STEVENSONVIRALIN Unavailable [address] + [place] [address] STEVENSONWILFRIDEN Unavailable [address] + [place] [address] R Unavailable Unavailable Unavailable STEVENSONVIRALIN Unavailable [address] + [place] [address] STEVENSONWILFRIDEN Unavailable [address] + [place] [address] R Unavailable Unavailable Unavailable STEVENSONVIRALIN Unavailable [address] + [place] [address] STEVENSONWILFRIDEN Unavailable [address] + [place] [address] R Unavailable Unavailable Unavailable STEVENSON, BRIGID Unavailable [address] + [place] [address] STEVENSON, TILA Unavailable [address] + [place] [address] R Unavailable Unavailable Unavailable STEVENSON, BRIGID Unavailable [address] + [place] [address] STEVENSON, TILA Unavailable [address] + [place] [address] R Unavailable Unavailable Unavailable STEVENSON, BRIGID Unavailable [address] + [place] [address] STEVENSON, TILA Unavailable [address] + [place] [address] R Unavailable Unavailable Unavailable STEVENSON, BRIGID Unavailable [address] + [place] [address] STEVENSON, TILA Unavailable [address] + [place] [address] R Unavailable Unavailable Unavailable STEVENSON, BRIGID Unavailable [address] + [place] [address] STEVENSON, TILA Unavailable [address] + [place] [address] R Unavailable Unavailable Unavailable STEVENSON, BRIGID Unavailable [address] + [place] [address] STEVENSON, TILA Unavailable [address] + [place] [address] R Unavailable Unavailable Unavailable STEVENSON, BRIGID Unavailable [address] + [place] [address] STEVENSON, TILA Unavailable [address] + [place] [address] R Unavailable Unavailable Unavailable STEVENSON, BRIGID Unavailable [address] + [place] [address] STEVENSON, TILA Unavailable [address] + [place] [address] STEVENSON, BRIGID Unavailable Unavailable + STEVENSON, BRIGID Unavailable Unavailable + STEVENSON, BRIGID Unavailable Unavailable + STEVENSON, BRIGID Unavailable Unavailable + STEVENSON, BRIGID Unavailable Unavailable + STEVENSON, BRIGID Unavailable Unavailable + Care Team Providers Name Role Phone ZACOUR, POLI Attending Unavailable ZACOUR, POLI Primary Care Unavailable ZACOUR, POLI Attending Unavailable ZACOUR, POLI Primary Care Unavailable FRANKY BRANNON, DR. ANTONETTE Renteria Attending Unavailable ZACOUR, POLI Primary Care Unavailable MARIELY BRANNON, FERDINAND Attending Unavailable ZACOUR, POLI Primary Care Unavailable TERESA VILLARREAL MD Attending Unavailable ZACOUR, POLI Primary Care Unavailable Sementi, Sarah Admitting Unavailable Sementi, Sarah Attending Unavailable ZACOUR, POLI Primary Care Unavailable Sementi, Sarah Consulting Unavailable Sementi, Sarah Admitting Unavailable ZACOUR, POLI Primary Care Unavailable Bakhous, Aziz Consulting Unavailable Ashelfah, Ghasem Attending Unavailable Ashelfah, Ghasem Consulting Unavailable Sementi, Sarah Admitting Unavailable ZACOUR, POLI Primary Care Unavailable Bakhous, Aziz Consulting Unavailable Ashelfah, Ghasem Attending Unavailable Ashelfah, Ghasem Consulting Unavailable Sementi, Sarah Admitting Unavailable Ashelfah, Ghasem Attending Unavailable ZACOUR, POLI Primary Care Unavailable Bakhous, Aziz Consulting Unavailable Ashelfah, Ghasem Consulting Unavailable ZACOUR, POLI Primary Care Unavailable Ashelfah, Ghasem Admitting Unavailable Bakhous, Aziz Consulting Unavailable John Vidal Attending Unavailable Ashelfah, Ghasem Admitting Unavailable Ashelfah, Ghasem Attending Unavailable ZACOUR, POLI Primary Care Unavailable Ashelfah, Ghasem Consulting Unavailable Alistair Vidal Attending Unavailable Ashelfah, Ghasem Referring Unavailable Ashelfah, Ghasem Admitting Unavailable Ashelfah, Ghasem Attending Unavailable ZACOUR, POLI Primary Care Unavailable Ashelfah, Ghasem Consulting Unavailable Ashelfah, Ghasem Admitting Unavailable Ashelfah, Ghasem Attending Unavailable ZACOUR, POLI Primary Care Unavailable Ashelfah, Ghasem Consulting Unavailable Ashelfah, Ghasem Admitting Unavailable Ashelfah, Ghasem Attending Unavailable ZACOUR, POLI Primary Care Unavailable Ashelfah, Ghasem Consulting Unavailable Ashelfah, Ghasem Admitting Unavailable Ashelfah, Ghasem Attending Unavailable ZACOUR, POLI Primary Care Unavailable Ashelfah, Ghasem Consulting Unavailable Ashelfah, Ghasem Admitting Unavailable Mat Ash Attending Unavailable ZACOUR, POLI Primary Care Unavailable Bakhous, Aziz Consulting Unavailable Young, John Consulting Unavailable ZACOUR, POLI Primary Care Unavailable White, Constance Admitting Unavailable Abdiel Brown, D.O. Consulting Unavailable Ashelfah, Ghasem Attending Unavailable White, Constance Attending Unavailable ZACOUR, POLI Primary Care Unavailable White, Constance Admitting Unavailable ZACOUR, POLI Primary Care Unavailable Abdiel Brown, D.O. Consulting Unavailable Paintsil, [place] Attending Unavailable Imamura, Yoichi Consulting Unavailable White, Constance Admitting Unavailable Francia Braga [employer] Attending Unavailable ZACOUR, POLI Primary Care Unavailable Abdiel Brown, D.O. Consulting Unavailable Imamura, Yoichi Consulting Unavailable White, Constance Admitting Unavailable Abdiel Brown, D.O. Attending Unavailable ZACOUR, POLI Primary Care Unavailable Abdiel Brown, D.O. Consulting Unavailable Imamura, Yoichi Consulting Unavailable White, Constance Admitting Unavailable Abdiel Brown, D.O. Attending Unavailable ZACOUR, POLI Primary Care Unavailable Abdiel Dimitri, D.O. Consulting Unavailable Imamura, Yoichi Consulting Unavailable White, Constance Admitting Unavailable ZACOUR, POLI Primary Care Unavailable Abdiel Brown, D.O. Consulting Unavailable Paintsil, [place] Attending Unavailable Imamura, Yoichi Consulting Unavailable White, Constance Admitting Unavailable Abdiel Brown, D.O. Attending Unavailable ZACOUR, POLI Primary Care Unavailable Abdiel Brown, D.O. Consulting Unavailable Ashelfah, Ghasem Consulting Unavailable White, Constance Admitting Unavailable Ashelfah, Ghasem Attending Unavailable ZACOUR, POLI Primary Care Unavailable Abdiel Dimitri, D.O. Consulting Unavailable Ashelfah, Ghasem Consulting Unavailable White, Constance Admitting Unavailable Abdiel Brown, D.O. Attending Unavailable ZACOUR, POLI Primary Care Unavailable Abdiel Brown, D.O. Consulting Unavailable Ashelfah, Ghasem Consulting Unavailable White, Constance Admitting Unavailable Ashelfah, Ghasem Attending Unavailable ZACOUR, POLI Primary Care Unavailable Abdiel Brown, D.O. Consulting Unavailable Ashelfah, Ghasem Consulting Unavailable Ashelfah, Ghasem Admitting Unavailable Nilsa, Mat Attending Unavailable ZACOUR, POLI Primary Care Unavailable Bakhous, Aziz Consulting Unavailable Young, John Consulting Unavailable Ashelfah, Ghasem Admitting Unavailable Nilsa, Mat Attending Unavailable ZACOUR, POLI Primary Care Unavailable Bakhous, Aziz Consulting Unavailable Young, John Consulting Unavailable Ashelfah, Ghasem Admitting Unavailable ZAK Donaldson Attending Unavailable ZACOUR, POLI Primary Care Unavailable Bakhous, Aziz Consulting Unavailable Young, John Consulting Unavailable Ashelfah, Ghasem Admitting Unavailable Young, John Attending Unavailable Ashelfah, Ghasem Referring Unavailable ZACOUR, POLI Primary Care Unavailable Ashelfah, Ghasem Consulting Unavailable Ashelfah, Ghasem Admitting Unavailable Ashelfah, Ghasem Attending Unavailable Ashelfah, Ghasem Referring Unavailable ZACOUR, POLI Primary Care Unavailable Bakhous, Aziz Consulting Unavailable Wendy Carter Attending Unavailable Sommers, Meseret Attending Unavailable ZACOUR, POLI Referring Unavailable Clive, [place] Attending Unavailable Tootie, Meseret Attending Unavailable Sommers, Meseret Referring Unavailable ZACOUR, POLI Primary Care Unavailable Tootie, Meseret Attending Unavailable Sommers, Meseret Referring Unavailable ZACOUR, POLI Primary Care Unavailable Yayo Wilson Attending Unavailable Tootie, Meseret Referring Unavailable Abdiel [place] D.O. Attending Unavailable Sommers, Meseret Referring Unavailable Abdiel [place] D.O. Attending Unavailable ZACOUR, POLI Referring Unavailable ZACOUR, POLI Primary Care Unavailable ZACHARIAH SOLIS Attending Unavailable Sommers, Meseret Attending Unavailable ZACOUR, POLI Referring Unavailable ZACOUR, POLI Primary Care Unavailable White, Constance Admitting Unavailable Tereletsky, Jeanmarie Attending Unavailable White, Constance Admitting Unavailable White, Constance Attending Unavailable ZACOUR, POLI Primary Care Unavailable White, Constance Consulting Unavailable White, Constance Admitting Unavailable Princessky, Jeanmarie Attending Unavailable ZACOUR, POLI Primary Care Unavailable Eda, Jeanmarie Consulting Unavailable Hermes Cornelius Attending Unavailable White, Constance Referring Unavailable Moodispaw Cornelius Attending Unavailable White, Constance Referring Unavailable ZACOUR, POLI Primary Care Unavailable Sarah Dowling Admitting Unavailable Bakhous, Aziz Consulting Unavailable Ashelfah, Ghasem Attending Unavailable PROBLEMS PROBLEMS DATE TYPE CONDITION / CODE ATTENDING STATUS SOURCE 09/15/2018 Unknown 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, Alistair Active 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 and chronic kidney Hospital disease with heart Repository failure and stage 1 through stage 4 chronic kidney disease, or unspecified chronic kidney disease / I13.0(ICD-10) 09/15/2018 Unknown I50.33 - Acute on Clive, [place] Active [facility] chronic diastolic Community (congestive) heart Hospital failure / Repository I50.33(ICD-10) 05/24/2018 Unknown R06.02 - Shortness Cornelius Hernández Active [facility] of breath / Community R06.02(ICD-10) Hospital Repository 05/24/2018 Unknown R07.89 - Other Cornelius Hernández Active [facility] chest pain / Community R07.89(ICD-10) Hospital Repository 09/28/2018 Unknown R07.9 - Chest Tereletsky, Active [facility] pain, unspecified Jeanmarie Community / R07.9(ICD-10) Hospital Repository 03/11/2018 Unknown R10.31 - Right ZACHARIAH SOLIS Active [facility] lower quadrant Community pain / Hospital R10.31(ICD-10) Repository 03/02/2018 Unknown J96.11 - Chronic Abdiel [place], Active [facility] respiratory D.O. Community failure with Hospital hypoxia / Repository J96.11(ICD-10) 12/25/2017 Unknown G47.19 - Other Sommers, Active [facility] hypersomnia / [facility] G47.19(ICD-10) Hospital Repository 12/25/2017 Unknown J44.1 - Chronic Sommers, Active [facility] obstructive [facility] pulmonary disease Hospital with (acute) Repository exacerbation / J44.1(ICD-10) 12/25/2017 Unknown J96.01 - Acute Sommers, Active [facility] respiratory [facility] failure with Hospital hypoxia / Repository J96.01(ICD-10) PROCEDURES PROCEDURES No Procedure Records FoundRESULTS RESULTS URINALYSIS, COMPLETE Collected: 09/28/2018 Status: F Source: [facility] 9:15 PM [facility] HOSPITAL REPOSITORY Order Comment: Has pt arrived? Y How was Urine Obtained? CLEAN CATCH TYPE CODE TESTS RESULT OUT OF RANGE REFERENCE UNITS LAB L400.3000 Yellow COLOR Normal Yellow LAB L400.3050 Clear Normal CLARITY Clear LAB L400.3200 Normal mg/dl Normal GLUCOSE, UR Normal LAB L400.3300 Negative mg/dL Normal BILIRUBIN URINE Negative LAB L400.3400 Negative mg/dl Normal KETONE UR Negative LAB L400.3465 1.002-1.030 Normal SP.GR. DIPSTX 1.020 LAB L400.3550 5.0 - 8.0 pH UR Normal 5.0 LAB L400.3600 Negative mg/dl High PROT DIPSTX 100 LAB L400.3700 Normal mg/dl Normal UROBILI Normal LAB L400.3750 Negative Normal NITRITE UR Negative LAB L400.3780 Negative /ul Normal OCCULT BLOOD-UR Negative LAB L400.3800 Negative /ul High LEUK ESTERASE 100 LAB L400.4050 0-5 /hpf WBC Normal 5-10 SEEN LAB L400.4100 0-5 /hpf 0 Normal RBC-UA SEEN LAB L400.4150 5-10 /hpf SQUAM Normal EPI 0-5 SEEN LAB L400.4300 None Seen /hpf Normal BACTERIA RARE LAB L400.4350 <or=2+ /hpf 0 Normal MUCUS, URINE SEEN Performed By: #### L400.0001 #### [facility] [address] [place], [address] HISTORY AND PHYSICAL Observed: 09/28/2018 Status: F Source: [facility] 9:05 PM [facility] REPOSITORY [facility] Medical Records Department [address] [place] [address] History and Physical 09/28/182027 MR#: [id number] Acct: [id number] Name: MILAGROS STEVENSON Rep #: [id number] : 1935 83 From: John Vidal MD PCP: Poli Mendieta MD Status: ADM IN Location: [place] [address] Problem List (1) Near syncope Status: Acute (2) Acute kidney injury superimposed on chronic kidney disease Status: Chronic (3) COPD (chronic obstructive pulmonary disease) Status: Chronic (4) Chronic respiratory failure with hypoxia Status: Chronic (5) Chronic renal failure, stage 3 (moderate) Status: Chronic Comment: 3-4 (6) Hormone replacement therapy Status: Chronic (7) Pulmonary hypertension Status: Chronic Comment: PA pressure 57 in November 2017 (8) Stasis dermatitis Status: Chronic (9) Obesity, morbid, BMI 40.0-49.9 Status: Chronic (10) Gout Status: Chronic Qualifiers: (11) Hypertension Status: Chronic Qualifiers: (12) History of TIA (transient ischemic attack) Status: Chronic Comment: 1998 (13) History of kidney cancer Status: Chronic Comment: S/P nephrectomy (14) UTI (urinary tract infection) Status: Acute History of Present Illness Date of Admission: 09/28/18 Chief Complaint: Dizzy feeling, nonspecific symptoms today morning The patient is a 83 year old F with multiple comorbidities including chronic heart failure with preserved EF and moderate pulmonary hypertension who was discharged on 2018 after 8 days of hospital stay for management of acute on chronic diastolic heart failure, intermittent V. tach, AK I on CKD stage III gouty arthritis. She is a direct transfer from [facility] ER for management of nonspecific symptoms including UTI as detailed below Today in the morning, she has not felt right although not able to describe exactly but felt foggy after she took morning medications around 10 AM. She felt a little bit dizzy but denies vertigo, change in visual field, chest pressure, shortness of breath, palpitation or nausea or vomiting. She did not had urine output since morning and had a little bit dark urine after straight cath in the ER. Basic lab work done in ER shows leukocytosis 11.6 thousand, 13% band. UA WBC 5-10 cells, bacteria 4+ looks trace. Creatinine 2.93, BUN 80, increased from BUN/creatinine 96/2.67 at the time of discharge on 2018. She was given 500 mL normal saline, total of 2 dosages and 2 g Rocephin in ER and transferred directly to PCU for further management. Past Medical History Past Medical History (Chronic Problems): Chronic Problems (Last Updated 08/17/18 @ 13:56 by Antonette Brown MD) Acute kidney injury superimposed on chronic kidney disease (Chronic) COPD (chronic obstructive pulmonary disease) (Chronic) Chronic respiratory failure with hypoxia (Chronic) Chronic renal failure, stage 3 (moderate) (Chronic) 3-4 Hormone replacement therapy (Chronic) Pulmonary hypertension (Chronic) PA pressure 57 in November 2017 Stasis dermatitis (Chronic) Obesity, morbid, BMI 40.0-49.9 (Chronic) Gout (Chronic) Hypertension (Chronic) History of TIA (transient ischemic attack) (Chronic) 1998 History of kidney cancer (Chronic) S/P nephrectomy Medical History: Medical History (Last Updated 08/17/18 @ 13:56 by Antonette Brown MD) Cancer of right kidney 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 Impingement syndrome of left shoulder M75.42 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 DJD (degenerative joint disease) M19.90 Venous insufficiency I87.2 Elbow fracture, right S42.401A Allergies clindamycin [From Cleocin] Allergy (Verified 09/15/18 10:54) Unknown oxycodone HCl [From OxyContin] Allergy (Verified 09/15/18 10:54) Anaphylaxis Sulfa (Sulfonamide Antibiotics) Allergy (Verified 09/15/18 10:54) Anaphylaxis vancomycin Allergy (Verified 09/15/18 10:54) Hives guaifenesin [From Entex LA] Adverse Reaction (Verified 09/15/18 10:54) Unknown phenylephrine [From Entex LA] Adverse Reaction (Verified 09/15/18 10:54) Unknown phenylpropanolamine [From Entex LA] Adverse Reaction (Verified 09/15/18 10:54) Unknown BETA BLOCKERS Adverse Reaction (Uncoded 09/15/18 10:54) Unknown Home Medications: Ambulatory Orders Medication Instructions Recorded Estrogens, Conjugated [Premarin] 0.3 mg PO QHS 04/04/15 MedroxyPROGESTERone [Provera] 5 mg PO QHS 05/18/15 Aspirin 325 mg PO DAILY@0800 04/12/18 Surgical History: Surgical History (Last Reviewed 08/16/18 @ 18:39 by Violeta Dowling DO) H/O rotator cuff surgery Z98.890 right History of appendectomy Z90.49 age 18 History of left knee replacement Z96.652 2007 History of nephrectomy Z90.5 1995 for cancer History of total right knee replacement Z96.651 2010 Hx of cholecystectomy Z90.49 2016 Hx of removal of ovary Surgical History: - - Tonsillectomy, appendectomy, cholecystectomy, bilateral shoulder rotator cuff repair, right elbow fracture with surgery with pin in place, bilateral total knee replacement. Renal cell carcinoma, Surgery for SBO, Single salpingectomy and oophorectomy for ectopic . Smoking Status: Former smoker - *Family History Paternal Family History: Family History (Last Reviewed 08/16/18 @ 18:39 by Violeta Dowling DO) Mother CAD (coronary artery disease) Father Colon cancer History Items: Cancer - Pancreatic CA, age 3838 years old., Diabetes, Heart Disease, Hypertension Maternal Family History: Family History (Last Reviewed 08/16/18 @ 18:39 by Violeta Dowling DO) Mother CAD (coronary artery disease) Father Colon cancer History Items: Heart Disease, Hypertension Review of Systems Constitutional: Reports: Malaise, Weakness Eyes: Denies: Conjunctivae Inflammation, Double vision HEENT: Denies: Head Aches, Sinus Congestion, Sinus Drainage Cardiovascular: Denies: Chest Pain, Palpitations Respiratory: Denies: Cough, Shortness of Breath, Shortness of breath at rest, Sputum production Gastrointestinal: Denies: Abdominal Pain, Nausea, Vomiting Genitourinary: Denies: Dysuria Musculoskeletal: Reports: Back Pain. Denies: Joint Pain, Joint Tenderness Skin: Denies: Rash, Wounds Neurological: Reports: Balance problems - Tonic, Blurred vision. Denies: Double vision, Change in Speech, Slurred speech, Focal weakness, Numbness, Tingling Psychiatric: Denies: Anxiety, Depression, Homicidal Ideations, Suicidal Ideations Hematologic/ Lymphatic: Denies: Easy Bruising, Easy Bleeding VTE Information - Inpt Only VTE Present on Admission: No VTE Mechan Device Prophylaxis: None VTE Pharm Prophylaxis ordered?: Yes Patient Problems: Active and Suspected Problems (Last Updated 08/17/18 @ 13:56 by Antonette Brown MD) Near syncope (Acute) UTI (urinary tract infection) (Acute) - Physical Exam General: Alert, Oriented x3, Cooperative HEENT: Atraumatic, PERRLA, EOMI, Normocephalic Neck: Supple, No JVD, Negative Carotid Bruits Lungs: No wheeze, Diminished - Air entry bilaterally equal but slightly diminished in both lung bases, Rales - Rales present in both lung bases, baseline from her last discharge Cardiovascular: Regular rate, Regular Rhythm, Normal S1, Normal S2, No murmurs Abdomen: Bowel Sounds Present, Soft, Non Tender, Non-Distended Extremities: No edema, Capillary Refill Less than 3 Seconds Skin: No rashes, No breakdown Musculoskeletal: No Tenderness to Palpation of Joints or Extremities, Arthritic Changes Lymphatic: No Cervical, Supraclavicular, or Inguinal Adenopathy Neurological: Cranial nerves II-XII grossly intact, Deep Tendon Reflexes 2+/4 and Symmetrical, Neuro grossly intact Psych/Mental Status: Normal Affect, Appropriate Body Mass Index (BMI) 38.8 Assessment/Plan All Active Problems (Last Updated 08/17/18 @ 13:56 by Antonette Brown MD) Near syncope (Acute) UTI (urinary tract infection) (Acute) The patient is a 83 year old F with multiple comorbidities including chronic heart failure with preserved EF and moderate pulmonary hypertension who was discharged on 2018 after 8 days of hospital stay for management of acute on chronic diastolic heart failure, intermittent V. tach, AK I on CKD stage III gouty arthritis. She is a direct transfer from [facility] ER for management of nonspecific symptoms including UTI as detailed below Today in the morning, she has not felt right although not able to describe exactly but felt foggy after she took morning medications around 10 AM. She felt a little bit dizzy but denies vertigo, change in visual field, chest pressure, shortness of breath, palpitation or nausea or vomiting. She did not had urine output since morning and had a little bit dark urine after straight cath in the ER. Basic lab work done in ER shows leukocytosis 11.6 thousand, 13% band. UA WBC 5-10 cells, bacteria 4+ looks trace. Creatinine 2.93, BUN 80, increased from BUN/creatinine 96/2.67 at the time of discharge on 2018. She was given 500 mL normal saline, total of 2 dosages and 2 g Rocephin in ER and transferred directly to PCU for further management. 1. Nonspecific symptoms including dizziness/foggy vision probably secondary to UTI: Patient is being admitted in PCU. Patient was given 1 L of normal saline in the [facility] ER. Chest x-ray PA and lateral ordered. Troponin negative. N- terminal proBNP 6219. 2. Asymptomatic bacteriuria/possible UTI: Repeat UA and urine culture ordered. Continue empirically Rocephin started in [facility] ER. 3. Arrhythmia: Sinus bradycardia, NSVT: EKG and altered mental orbital ER shows sinus bradycardia at 54 bpm, normal AL interval, normal QRS interval nonspecific ST-T changes. QTc 445 ms. Repeat twelve-lead EKG. The patient was started on amiodarone 200 mg twice daily last week during previous admission for NSVT in consultation with Dr. vidal. Patient was also on Cardizem 60 mg p.o. every 8 hourly. Hold rate slowing medications including Cardizem and amiodarone. 4. Chronic heart failure with preserved EF with moderate pulmonary hypertension: Patient had echo in November 2017 shows EF 60% with stage I diastolic dysfunction, mild concentric LVH. Moderate TR, RVSP 59 mmHg consistently moderate pulmonary hypertension. Mild eccentric MR. LA moderately enlarged. Patient had negative nuclear stress test in April 07, 2018. Repeat 2D echo on September 21, 2018 shows EF 65% with no regional wall motion abnormalities. Mildly dilated RV with normal systolic function. LA mildly enlarged. RA mildly enlarged. Trivial MR with moderate mitral annular calcification with extension into posterior mitral valve leaflet. Trivial TR with RVSP 72 mmHg. Patient was seen by forest nursery worker was treated with Lasix drip and Zaroxolyn for 3 days and then switched to oral bumetanide 2 mg twice daily. BUN/creatinine 80/2.93 is increased from her baseline. Hold diuretics and repeat BMP tomorrow a.m. Follow- up chest x-ray. 5. Acute kidney injury on CKD stage III, possible secondary to diuretics: Hold diuretics and follow-up BMP. consult [facility] who saw her last time. 6. COPD with chronic hypoxic respiratory failure: Stable. Continue oxygen 7. Other chronic comorbidities include hypertension, history of kidney cancer status post nephrectomy, gout, morbid obesity: Home medication reconciliation done DVT prophylaxis: On heparin 5000 UNITS subcutaneous twice daily. Discontinue if platelet count drops less than 90,000 or hemoglobin less than 8 g% Code Visit Inpatient E AND M: 12482 Init Hosp L3 09/28/182104 <Electronically signed by John Vidal MD> Date John Vidal MD Cosigner Signature: Date (if applicable) CC: John Vidal MD; Poli Mendieta MD Signed CHEST PA AND LATERAL Observed: 09/28/2018 Status: F Source: [place] 8:36 PM [facility] RE[facility]ITORY [facility] Imaging Services [address] [place] [address] Chest PA and Lateral MR#: [id number] Acct: [id number] Name: MILAGROS STEVENSON Rep #: [id number] : 1935 F 83 From: Yair Gage MD PCP: Poli Mendieta MD Status: ADM IN Study: Chest PA and Lateral Date of Exam: 09/28/18 Exam# [id number] Ordering Dr: John Vidal MD STUDY: X-RAY CHEST REASON FOR EXAM: Female, 83 years old. CHF TECHNIQUE: Frontal and lateral views of the chest. COMPARISON: 09/20/2018 FINDINGS: Interval improvement in pulmonary edema. Improving right basilar alveolar disease. There is no demonstrated pleural abnormality. Normal size heart. Normal mediastinum and awilda. Normal visualized pulmonary arteries. Normal visualized aortic arch and descending thoracic aorta. There are diffuse degenerative changes of the visualized thoracic spine. There is degenerative osteoarthritis of the bilateral shoulders. Right rotator cuff repair. Abdominal clips. RAD/Chest PA and Lateral IMPRESSION: Interval improvement in pulmonary edema. Improving right basilar alveolar disease. Electronically Signed: Yair Gage MD at 22:07 EST Tel , Service support , CC: John Vidal MD; Poli Mendieta MD Chiropractor Sole Practitioner: Signed UA Collected: 09/28/2018 Status: F Source: [facility] 1:23 PM [facility] REPOSITORY TYPE CODE TESTS RESULT OUT OF RANGE REFERENCE UNITS LAB SPCUA(MAYA NC) UA Specimen Type Clean Catch LAB CLRUA(MAYA NC) UA Color Yellow LAB APPUA(MAYA Clear NC) UA Appear Unknown Slightly Cloudy LAB SGUA(LOIN 1.015-1.025 C) UA Spec Grav 1.020 LAB GLUA(LOIN Negative mg/dL C) UA Glucose Negative LAB BILUA(MAYA Negative NC) UA Bili Negative LAB KETUA(MAYA Negative mg/dL NC) UA Ketones Negative LAB BLDUA(MAYA Negative NC) UA Blood Negative LAB PHUA(LOIN 5.0 - 8.0 C) UA pH 6.0 LAB PROUA(MAYA Negative mg/dL NC) UA Protein 30 LAB UROUA(MAYA 0.2-1.0 E.U./dL NC) UA Urobilinogen 0.2 LAB NITUA(MAYA Negative NC) UA Nitrite Negative LAB LEUUA(MAYA Negative NC) UA Leuk Est Unknown Trace Performed By: #### UA, UAMICAO #### [place] [address] .URINALYSIS MICROSCOPIC Collected: 09/28/2018 Status: F Source: [place] ([place] 1:23 PM [facility] REPOSITORY TYPE CODE TESTS RESULT OUT OF RANGE REFERENCE UNITS LAB WBCUA(LOIN None Seen /hpf C) Unknown UA WBC 5-10 LAB RBCUA(LOIN None Seen /hpf C) UA RBC None Seen LAB EPIUA(LOIN None Seen /hpf C) Unknown UA Squam Epithelial 0-5 LAB BACUA(LOIN /hpf C) Unknown UA Bacteria 4+ Performed By: #### UA, UAMICAO #### [place] [address] MG Collected: 09/28/2018 Status: F Source: [facility] 1:06 [facility] REPOSITORY TYPE CODE TESTS RESULT OUT OF REFERENCE UNITS RANGE LAB MG(LOINC) 1.8-2.4 mg/dL Magnesium Lvl 1.8 Performed By: #### TROP, PBNP, MG, CMP, GFR #### [place] [address] #### CBC, DIFF, MORPH #### [address] [address] CMP Collected: 09/28/2018 Status: F Source: [facility] 1:06 [facility] REPOSITORY Order Comment: Hemolysed - please recollect TYPE CODE TESTS RESULT OUT OF REFERENCE UNITS RANGE LAB GLU(LOINC) 83-110 mg/dL Glucose High Level 128 LAB NA(LOINC) 136-145 mmol/L Sodium Level 141 LAB K(LOINC) 3.5-5.1 mmol/L Potassium Level 3.8 LAB CL(LOINC) 98-107 mmol/L Chloride 101 LAB CO2(LOINC) 23-31 mmol/L CO2 25 LAB EBAL(LOINC mEq/L ) Electrolyte Balance 15.0 LAB BUN(LOINC) 7-18 mg/dL BUN High 80 LAB CRE(LOINC) 0.55-1.02 mg/dL Creatinine High Lvl (s) 2.93 LAB BC(LOINC) 7-27 ratio BUN/Creatinine 27 Ratio LAB CA(LOINC) 8.4-10.2 mg/dL Low Calcium Lvl 8.3 LAB PROT(LOINC 6.4-8.2 G/dL ) Total Protein 6.7 LAB ALB(LOINC) 3.4-4.8 G/dL Low Albumin Level 2.9 LAB GLB(LOINC) G/dL Globulin 3.8 LAB AG(LOINC) 1.1-2.5 ratio Low A/G Ratio 0.8 LAB BILT(LOINC 0.2-1.0 mg/dL ) Bili Total 0.6 LAB AP(LOINC) 40-135 U/L Alk Phos 79 LAB AST(LOINC) 10-40 U/L AST/SGOT High 47 LAB ALT(LOINC) 10-35 U/L ALT/SGPT High 68 Performed By: #### TROP, PBNP, MG, CMP, GFR #### [address] [address] #### CBC, DIFF, MORPH #### [address] [address] .GFR Collected: 09/28/2018 Status: F Source: [facility] 1:06 [facility]POSIT[facility] TYPE CODE TESTS RESULT OUT OF REFERENCE UNITS RANGE LAB GFRAA(LOINC ml/min/1.73 ) sqm GFR 19 [place] Result Comment: GFR Population mean for , Non- Americans Ages 20-29 = 116 mL/min/1.73 sq.m. Ages 30-39 = 107 mL/min/1.73 sq.m. Ages 40-49 = 99 mL/min/1.73 sq.m. Ages 50-59 = 93 mL/min/1.73 sq.m. Ages 60-69 = 85 mL/min/1.73 sq.m. Ages 70+ = 75 mL/min/1.73 sq.m. Chronic Kidney Disease: Less than 60 mL/min/1.73 square meters End Stage Renal Disease: Less than 15 mL/min/1.73 square meters LAB GFRNO(LOINC) ml/min/1.73sqm GFR Non- 15 Result Comment: GFR Population mean for , Non- Americans Ages 20-29 = 116 mL/min/1.73 sq.m. Ages 30-39 = 107 mL/min/1.73 sq.m. Ages 40-49 = 99 mL/min/1.73 sq.m. Ages 50-59 = 93 mL/min/1.73 sq.m. Ages 60-69 = 85 mL/min/1.73 sq.m. Ages 70+ = 75 mL/min/1.73 sq.m. Chronic Kidney Disease: Less than 60 mL/min/1.73 square meters End Stage Renal Disease: Less than 15 mL/min/1.73 square meters Performed By: #### TROP, PBNP, MG, CMP, GFR #### [address] [address] #### CBC, DIFF, MORPH #### [address] [address] XR CHEST 1 VIEW Observed: 09/28/2018 Status: F Source: [facility] 12:36 PM [facility] REPOSITORY ORIGINAL XR CHEST 1 VIEW PORTABLE AP TIME: 12:29 PM CLINICAL STATEMENT: chest pain. COMPARISON: 11/24/2017 FINDINGS: The cardiomediastinal contours are unchanged. The aorta is atherosclerotic. There is prominence of the interstitial markings which appears similar to the prior exam. No large effusion, vascula r congestion, or pneumothorax is shown. Postoperative change noted in the RIGHT shoulder. Degenerative changes of the shoulders seen bilaterally. IMPRESSION: No significant change from prior exam. Interpreted By: Alysia Leger MD Preliminary Report By: Alysia Leger MD Electronically Signed By: Alysia Leger MD Dictated Date: 09/28/2018 12:39:43 PM Prelim Date: 09/28/2018 12:39:43 PM Sign Date: 09/28/2018 12:40:29 PM TROP Collected: 09/28/2018 Status: F Source: [facility] 12:29 PM [facility] REPOSITORY TYPE CODE TESTS RESULT OUT OF REFERENCE UNITS RANGE LAB TROP(LOINC) 0.000-0.040 ng/mL Troponin 0.032 Result Comment: Troponin I reference range: 0.00-0.040 ng/mL Negative and non-diagnostic. >0.040 ng/mL Consistent with cardiac damage, increased clinical risk and possibility of myocardial infarction. Serial measurements, a rise & fall in test results, clinical history, appropriate symptoms and/or ECG changes may help assess possibility of OR. *Other non-acute coronary syndrome conditions such as CHF, myocarditis, pulmonary emboli, sepsis and cardiac surgery could result in myocardial damage and increased troponin levels. Performed By: #### TROP, PBNP, MG, CMP, GFR #### [place] [address] #### CBC, DIFF, MORPH #### [address] [address] PBNP Collected: 09/28/2018 Status: F Source: [facility] 12:29 [facility] REPOSITORY TYPE CODE TESTS RESULT OUT OF REFERENCE UNITS RANGE LAB PBNP(LOINC) 0-450 pg/mL High N-Terminal 6219 proBNP Result Comment: NT-proBNP results of less than 300 pg/mL effectively rules out acute congestive heart failure with 99% negative predictive value. Performed By: #### TROP, PBNP, MG, CMP, GFR #### [address] [address] #### CBC, DIFF, MORPH #### [address] [address] CBC Collected: 09/28/2018 Status: F Source: [facility] 12:29 [facility] REPOSITORY TYPE CODE TESTS RESULT OUT OF REFERENCE UNITS RANGE LAB WBC(LOINC) 4.60-10.80 10 3/mcL High WBC 11.60 LAB RBCCT(LOINC 4.20-5.40 10 6/mcL ) RBC 5.09 LAB HGB(LOINC) 12.0-16.0 G/dL Hgb 14.5 LAB HCT(LOINC) 37.0-47.0 % Hct 44.1 LAB MCV(LOINC) 80.0-94.0 fL MCV 86.7 LAB MCH(LOINC) 27.0-31.2 pg MCH 28.5 LAB MCHC(LOINC) 33.0-37.0 G/dL Low MCHC 32.9 LAB RDW(LOINC) 11.5-14.5 % High RDW 15.6 LAB PLT(LOINC) 130-400 10 3/mcL Platelet 305 LAB MPV(LOINC) 7.4-10.4 fL MPV 9.6 Performed By: #### TROP, PBNP, MG, CMP, GFR #### [address] [address] #### CBC, DIFF, MORPH #### [address] [address] .MANUAL DIFF Collected: 09/28/2018 Status: F Source: [facility] 12:29 PM [facility] REPOSITORY TYPE CODE TESTS RESULT OUT OF REFERENCE UNITS RANGE LAB NEUM(LOINC 37.0-80.0 % ) Neutrophil %, 61.0 Manual LAB LYMM(LOINC 10.0-50.0 % ) Lymphocyte %, 17.0 Manual LAB MONM(LOINC 1.7-13.0 % ) Monocyte %, Manual 8.0 LAB EOM(LOINC) 0.0-7.0 % Eosinophil %, 1.0 Manual LAB BASM(LOINC 0.0-2.5 % ) Basophil %, Manual 0.0 LAB BAND(LOINC 0.0-5.0 % ) Bands High 13.0 LAB ANEUM(LOIN 2.85-6.16 10 3/mcL C) High Neutrophil, Abs 8.70 Manual LAB ABLYMM(MAYA 0.77-3.85 10 3/mcL NC) Lymphocyte, Abs 2.00 Manual LAB AMONM(LOIN 0.15-1.00 10 3/mcL C) Monocyte, Abs 0.90 Manual LAB AEOSM(LOIN 0.00-0.40 10 3/mcL C) Eosinophil, Abs 0.10 Manual LAB ABASM(LOIN 0.00-0.19 10 3/mcL C) Basophil, Abs 0.00 Manual Performed By: #### TROP, PBNP, MG, CMP, GFR #### [address] [address] #### CBC, DIFF, MORPH #### [address] [address] .MORPH Collected: 09/28/2018 Status: F Source: [facility] 12:29 [facility] REPOSITORY TYPE CODE TESTS RESULT OUT OF REFERENCE UNITS RANGE LAB PLTE(LOINC) Platelet Normal Estimate LAB TGR(LOINC) Toxic Gran Slight Performed By: #### TROP, PBNP, MG, CMP, GFR #### [address] [address] #### CBC, DIFF, MORPH #### [place] [id number] [place], [place] [address] DISCHARGE SUMMARY Observed: 2018 Status: F Source: [place] 6:14 PM [facility] REPOSITORY [facility] Medical Records Department [address] [place] [address] Discharge Summary 09/23/18 1027 MR#: [id number] Acct: [id number] Name: MILAGROS STEVENSON Rep #: [id number] : 1935 83 From: Wendy Cummings [employer] PCP: Poli Mendieta MD Status: DIS IN Y [id number] <Wendy Cummings - Last Filed: 09/23/18 10:50> Discharge Date and Diagnosis Date of Admission: 09/15/18 Date of Discharge: 09/23/18 - Primary Discharge Diagnosis 1. Acute on chronic diastolic CHF 2. Intermittent V. tach 3. Pulmonary hypertension 4. Acute kidney injury on chronic kidney disease stage III 5. Acute gouty arthritis right foot/right great toe 6. Chronic COPD with chronic hypoxic respiratory failure 7. Hypertension 8. History of renal cell carcinoma status post right nephrectomy 9. Obesity - Secondary Discharge Diagnosis Chronic Problems (Last Updated 08/17/18 @ 13:56 by Antonette Brown MD) Acute kidney injury superimposed on chronic kidney disease (Chronic) COPD (chronic obstructive pulmonary disease) (Chronic) Chronic respiratory failure with hypoxia (Chronic) Chronic renal failure, stage 3 (moderate) (Chronic) 3-4 Hormone replacement therapy (Chronic) Pulmonary hypertension (Chronic) PA pressure 57 in November 2017 Stasis dermatitis (Chronic) Obesity, morbid, BMI 40.0-49.9 (Chronic) Gout (Chronic) Hypertension (Chronic) History of TIA (transient ischemic attack) (Chronic) 1998 History of kidney cancer (Chronic) S/P nephrectomy Hospital Course and Treatment Imaging Results: Diagnostic Data Chest X-Ray 09/20/18 08:45 IMPRESSION: Question mild pulmonary edema superimposed on mild chronic interstitial fibrosis. Electronically Signed: Bianca Rutherford MD at 23:56 EST Tel , Service support , Dr. Aleman- Nephrology Operations: None Procedures: 2-D Echocardiogram Summary of Care Provided: The patient is a 83 year old F admitted 09/15/2017 due to shortness of breath. 1. Acute on chronic diastolic CHF-BNP 618 on admission. Chest x-ray on admission consistent with CHF. Echocardiogram showed an EF of 65%, RVSP estimated to be 72 mmHg. Patient had a negative stress test April 2018. Her home Lasix regimen was discontinued. She will be discharged on Bumex 2 mg twice daily. Follow-up with Dr. Hernández in 1-2 weeks. Pulmonary pressures increased from prior echo in November 2017 which showed RVSP 59 mmHg at that time. 2. Intermittent V. tach-patient was started on Cardizem 60 mg p.o. every 8 hours as well as amiodarone 200 mg twice daily. Patient has an allergy to beta-blockers. No further V. tach overnight. Follow-up with cardiology as noted above. 3. Acute kidney injury on chronic kidney disease stage III -Improved. History of nephrectomy due to renal cell carcinoma. Baseline creatinine 1.3-1.4. Patient follows with Dr. Aleman. Follow-up with nephrology in 1 week. 4. Acute gouty arthritis right foot/right big toe-complete prednisone taper at discharge. Encourage patient to discuss preventative regimen with primary care physician given recurrence of acute gout. 5. Chronic hypoxic respiratory failure due to chronic COPD- patient chronically wears 4 L nasal cannula. Patient follows with pulmonary medicine as outpatient. Follow-up with Dr. Mosley as scheduled 10/12/18. 6. Hypertension-continue hydralazine, felodipine regimen. 7. History of TIA-continue aspirin. 8. Obesity-encouraged diet/lifestyle modifications. General: Alert, Oriented x3, Cooperative HEENT: Atraumatic, PERRLA, EOMI, Normocephalic Oral: Moist mucosa Neck: Supple, No JVD, Negative Carotid Bruits Lungs: Diminished, faint rales Cardiovascular: Regular rate, Regular Rhythm, Normal S1, Normal S2, No murmurs Abdomen: Bowel Sounds Present, Soft, Non Tender, Non-Distended, Obese Extremities: No clubbing, No cyanosis, No edema, Capillary Refill Less than 3 Seconds Skin: No rashes, No breakdown Musculoskeletal: No Tenderness to Palpation of Joints or Extremities Neurological: Cranial nerves II-XII grossly intact, Neuro grossly intact Psych/Mental Status: Normal Affect, Appropriate Patient seen and examined prior to discharge. Physical assessment as noted above. Patient is stable for discharge with follow up recommendations as noted above. This patient was seen by ZAK Donaldson under the supervision of Dr. Vidal. - Physical Exam Vital Signs Temp Pulse Resp BP Pulse Ox 97.6 F L 75 18 134/63 H 95 09/23/18 09:21 09/23/18 09:21 09/23/18 09:21 09/23/18 09:21 09/23/18 09:21 Oxygen Flow Rate (L/min) 3 Oxygen Delivery Method Nasal Cannula Weight: 238 lb 12.17 oz Body Mass Index (BMI) 38.8 Intake and Output for Last 24 Hours Laboratory Tests Past 24 Hrs Sodium 141 Potassium 4.2 Chloride 101 Carbon Dioxide 29.0 Anion Gap 11 Discharge Diet: Renal Diet Discharge Activity: Return to Normal Activity Call your doctor if you observe: Inability to urinate, Shortness of breath, Dizziness, Fainting spells, Chest pain Home Medications: Medications to take at Discharge Estrogens, Conjugated [Premarin] 0.3 mg PO QHS 04/04/15 MedroxyPROGESTERone [Provera] 5 mg PO QHS 05/18/15 Aspirin 325 mg PO DAILY@0800 04/12/18 Felodipine [Plendil] 10 mg PO DAILY 08/16/18 Umeclidinium Brm/Vilanterol Tr [Anoro Ellipta 62.5-25 Mcg INH] 1 puff INHALATION DAILY 08/16/18 Cholecalciferol (Vitamin D3) [Vitamin D3] 2,000 unit PO DAILY 09/15/18 Hydrocodone/Acetaminophen [[place] 5-325 Tablet] 1 tab PO TID PRN PRN 09/15/18 hydrALAZINE [Apresoline] 25 mg PO TID 09/15/18 Amiodarone HCl [Cordarone] 200 mg PO BID #60 tablet 09/23/18 Bumetanide [Bumex] 2 mg PO BIDLX #60 tablet 09/23/18 Diltiazem [Cardizem] 60 mg PO Q8 #90 tablet 09/23/18 Prednisone See Taper PO DAILY #9 tablet 09/23/18 Following Prescrptions Were Given to Patient: Bumetanide [Bumex] 2 mg PO BIDLX #60 tablet Diltiazem [Cardizem] 60 mg PO Q8 #90 tablet Prednisone See Taper PO DAILY #9 tablet Amiodarone HCl [Cordarone] 200 mg PO BID #60 tablet Primary Care Physician: Poli Mendieta MD [Primary Care Provider] - Please follow up with your Primary Care Physician in: 1 Week Please Follow Up With: Ferdinand Aleman MD When: 1 Week Please Follow Up With: Alistair Vidal MD When: 1-2 Weeks Please Follow Up With: Abdiel Mosley DO When: As scheduled, 10/12/18 Disposition: Home Minutes spent on discharge:: 35 Patient Condition:: Stable Medical Necessity - Tobacco Use Smoking Status: Former smoker Meaningful Use Info Meaningful Use Diagnoses (Choose all that apply): CHF - CHF MOISES/ARB ordered at discharge?: No Reason MOISES/ARB not ordered?: Worsening renal function Documented LVEF (%): 65 <John Vidal - Last Filed: 09/23/18 18:14> Discharge Date and Diagnosis - Secondary Discharge Diagnosis Chronic Problems (Last Updated 08/17/18 @ 13:56 by Antonette Brown MD) Acute kidney injury superimposed on chronic kidney disease (Chronic) COPD (chronic obstructive pulmonary disease) (Chronic) Chronic respiratory failure with hypoxia (Chronic) Chronic renal failure, stage 3 (moderate) (Chronic) 3-4 Hormone replacement therapy (Chronic) Pulmonary hypertension (Chronic) PA pressure 57 in November 2017 Stasis dermatitis (Chronic) Obesity, morbid, BMI 40.0-49.9 (Chronic) Gout (Chronic) Hypertension (Chronic) History of TIA (transient ischemic attack) (Chronic) 1998 History of kidney cancer (Chronic) S/P nephrectomy Hospital Course and Treatment Summary of Care Provided: This patient was seen in conjunction with [employer], Wendy. I have independently interviewed and examined the patient and reviewed pertinent history, examination findings, laboratory and plan of management. I have reviewed the note and agree with the documented findings with the few additional points. In brief, patient is admitted for acute on chronic heart failure with preserved EF and moderate pulmonary hypertension. 2D echo in November 2017 shows EF 60% with stage I diastolic dysfunction, mild concentric LVH. Moderate TR, RVSP 59 mmHg consistently moderate pulmonary hypertension. Mild eccentric MR. LA moderately enlarged. Patient seen by forest nursery worker. Started on Lasix drip and Zaroxolyn. Dr. Holland suggested ischemic workup patient already had negative stress test in April 2018 and 2D echo in November 2017 as mentioned above. Serial troponins were borderline mainly because of kidney failure. patient denies chest pain. Feels improvement on chest congestion. Repeat 2D echo shows EF 65% with no regional wall motion abnormalities. Mildly dilated RV with normal systolic function. LA mildly enlarged. RA mildly enlarged. Trivial MR with moderate mitral annular calcification with extension into posterior mitral valve leaflet. Trivial TR with RVSP 72 mmHg. Patient has other comorbidities of gouty arthritis on prednisone. Patient has chronic hypoxic respiratory failure on 4 L baseline oxygen requirement. NSVT: Patient is started on amiodarone 150 mg IV and then 200 mg twice daily after discussion with concrete mixing truck driver. Patient follows Dr. vidal. Plan of care and management discussed with the patient and her son present in the room. Discharge medication reconciliation done. Patient is discharged on amiodarone and Cardizem. Blood pressure is controlled. Discharge on Bumex 2 mg twice daily. Discharge medication reconciliation done. Discharge follow- up instructions completed. Discharge process discussed with the patient. Total time spent, exact 35 minutes on discharge meds reconciliation, examination, review of imaging and blood test and discussion with the patient on follow-up instructions. I have discussed my assessment with INTERPRETER FOR THE DEAFWendy and orders have been reviewed. [] Subjective: Seen and examined. Patient is happy to feel the progress of getting better. She further said she has not felt like this in last 2 months. Shortness of breath much better. - Physical Exam General: Alert, Oriented x3, Cooperative HEENT: Atraumatic, PERRLA, EOMI, Normocephalic Neck: Supple, No JVD, Negative Carotid Bruits Lungs: Diminished, Rales - Mild coarse rales present, Rhonchi Cardiovascular: Regular rate, Regular Rhythm, Normal S1, Normal S2, No murmurs Abdomen: Bowel Sounds Present, Soft, Non Tender Extremities: Capillary Refill Less than 3 Seconds, Edema Skin: No rashes, No breakdown Musculoskeletal: Arthritic Changes, Muscle Wasting, - - Moises wrap bandage around lower extremities Neurological: Cranial nerves II-XII grossly intact Psych/Mental Status: Normal Affect, Appropriate Vital Signs Temp Pulse Resp BP Pulse Ox 98.0 F 82 18 139/80 H 95 09/23/18 13:05 09/23/18 13:06 09/23/18 13:05 09/23/18 13:05 09/23/18 13:05 Oxygen Flow Rate (L/min) 3 Oxygen Delivery Method Nasal Cannula Weight: 238 lb 12.17 oz Body Mass Index (BMI) 38.8 Intake and Output for Last 24 Hours Laboratory Tests Past 24 Hrs Sodium 141 Potassium 4.2 Chloride 101 Carbon Dioxide 29.0 Anion Gap 11 Code Visit Inpatient E AND M: 13768 Disch Hosp 09/23/18 1051 <Electronically signed by Wendy CRESPO> Date Wendy CRESPO 09/23/184<Electronically signed by John Vidal MD> Cosigner Signature (if applicable): Date John Vidal MD CC: ZAK Cummings; John Vidal MD; Poli Mendieta MD Signed DISCHARGE INSTRUCTION Observed: 2018 Status: F Source: [place] 10:33 AM [facility] Medical Records Department [address] [place] [address] Instructions for Home/Discharge Instructions 09/23/18 1022 MR#: [id number] Acct: [id number] Name: MILAGROS STEVENSON Rep #: [id number] : 1935 83 From: Wendy CRESPO PCP: Poli Mendieta MD Status: ADM IN ADDENDUM by ZAK Cummings on 09/23/18 at [address] Hernández, follow up with Dr. Hernández in 1-2 weeks. 09/23/18 1033 Date Wendy Cummings cc: Ferdinand Aleman MD; Poli Mendieta MD * Signed - Discharge Diagnoses Current Active Problems: Current Active and Chronic Problems (Last Updated 08/17/18 @ 13:56 by Antonette Brown MD) Acute kidney injury superimposed on chronic kidney disease (Chronic) COPD (chronic obstructive pulmonary disease) (Chronic) You will use the following diet at home:: Renal (restricted protein/sodium) Discharge Activity: Return to Normal Activity Call your doctor if you observe: Inability to urinate, Shortness of breath, Dizziness, Fainting spells, Chest pain Allergies/Adverse Reactions: Allergies clindamycin [From Cleocin] Allergy (Verified 09/15/18 10:54) Unknown oxycodone HCl [From OxyContin] Allergy (Verified 09/15/18 10:54) Anaphylaxis Sulfa (Sulfonamide Antibiotics) Allergy (Verified 09/15/18 10:54) Anaphylaxis vancomycin Allergy (Verified 09/15/18 10:54) Hives guaifenesin [From Entex LA] Adverse Reaction (Verified 09/15/18 10:54) Unknown phenylephrine [From Entex LA] Adverse Reaction (Verified 09/15/18 10:54) Unknown phenylpropanolamine [From Entex LA] Adverse Reaction (Verified 09/15/18 10:54) Unknown BETA BLOCKERS Adverse Reaction (Uncoded 09/15/18 10:54) Unknown Medications to take at Discharge Estrogens, Conjugated [Premarin] 0.3 mg PO QHS 04/04/15 MedroxyPROGESTERone [Provera] 5 mg PO QHS 05/18/15 Aspirin 325 mg PO DAILY@0800 04/12/18 Felodipine [Plendil] 10 mg PO DAILY 08/16/18 Umeclidinium Brm/Vilanterol Tr [Anoro Ellipta 62.5-25 Mcg INH] 1 puff INHALATION DAILY 08/16/18 Cholecalciferol (Vitamin D3) [Vitamin D3] 2,000 unit PO DAILY 09/15/18 Hydrocodone/Acetaminophen [Vanceburg 5-325 Tablet] 1 tab PO TID PRN PRN 09/15/18 hydrALAZINE [Apresoline] 25 mg PO TID 09/15/18 Amiodarone HCl [Cordarone] 200 mg PO BID #60 tablet 09/23/18 Bumetanide [Bumex] 2 mg PO BIDLX #60 tablet 09/23/18 Diltiazem [Cardizem] 60 mg PO Q8 #90 tablet 09/23/18 Prednisone See Taper PO DAILY #9 tablet 09/23/18 The following prescriptions were given: Bumetanide [Bumex] 2 mg PO BIDLX #60 tablet Diltiazem [Cardizem] 60 mg PO Q8 #90 tablet Prednisone See Taper PO DAILY #9 tablet Amiodarone HCl [Cordarone] 200 mg PO BID #60 tablet Primary Care Physician: Poli Mendieta MD [Primary Care Provider] - Please follow up with your Primary Care Physician in: 1 Week Test Results: Test results from this visit will be discussed in further detail at your follow-up appointment, if applicable. Please Follow Up With: Ferdinand Aleman MD When: 1 Week Please Follow Up With: Alistair Vidal MD When: 1-2 Weeks Please Follow Up With: Abdiel Mosley, When: As scheduled, 10/12/18 Proposed Discharge Date: 09/23/18 09/23/18 1027 <Electronically signed by Wendy CRESPO> Date Wendy CRESPO CC: Ferdinand Aleman MD; Poli Mendieta MD Signed BASIC METABOLIC Collected: 2018 Status: F Source: [place] PROFILE (BMP) 5:40 AM [facility] REPOS[facility] TYPE CODE TESTS RESULT OUT OF RANGE REFERENCE UNITS LAB L501.0100 74-106 mg/dL Normal GLU 102 Result Comment: Fasting Glucose result from 100 to 125 mg/dL suggests IMPAIRED HOMEOSTASIS per A.D.A. criteria. Please note revised GLUCOSE reference range effective 2017. LAB L501.1000 7-18 mg/dL High BUN 96 LAB L501.1100 0.55-1.02 mg/dL High CREAT,SERUM 2.67 Result Comment: The validity of the calculated GFR AND GFRAA in patients over 70 years has not been determined. Clinical correlation is essential. LAB L501.1110 >60 mL/min Low EST GFR 18 Result Comment: Non- GFR Calc LAB L501.1115 >60 mL/min Low EST GFR - AA 22 Result Comment: GFR Calc LAB L501.1255 ml/min Normal Estimated CRCL 15.47 LAB L501.1300 10-20 RATIO High BUN/CRE 36.0 LAB L501.2200 8.5-10 mg/dL Normal .1 CA 9.0 LAB L501.5300 136-14 mmol/L Normal 5 NA 141 LAB L501.5600 3.5-5. mmol/L Normal 1 K 4.2 LAB L501.5900 98-107 mmol/L Normal CL 101 LAB L501.6100 21.0-3 mmol/L Normal 2.0 CO2 29.0 LAB L501.6200 5-15 Normal GAP 11 Performed By: #### L500.2500 #### [facility] [address] [place], [address] BASIC METABOLIC Collected: 09/22/2018 Status: F Source: [place] PROFILE ([facility]) 5:10 AM [facility] TYPE CODE TESTS RESULT OUT OF RANGE REFERENCE UNITS LAB L501.0100 74-106 mg/dL Normal GLU 97 Result Comment: Please note revised GLUCOSE reference range effective 2017. LAB L501.1000 7-18 mg/dL High BUN 93 LAB L501.1100 0.55-1.02 mg/dL High CREAT,SERUM 2.88 Result Comment: The validity of the calculated GFR AND GFRAA in patients over 70 years has not been determined. Clinical correlation is essential. LAB L501.1110 >60 mL/min Low EST GFR 17 Result Comment: Non- GFR Calc LAB L501.1115 >60 mL/min Low EST GFR - AA 20 Result Comment: GFR Calc LAB L501.1255 ml/min Normal Estimated CRCL 14.58 LAB L501.1300 10-20 RATIO High BUN/CRE 32.3 LAB L501.2200 8.5-10 mg/dL Normal .1 CA 8.9 LAB L501.5300 136-14 mmol/L Normal 5 NA 142 LAB L501.5600 3.5-5. mmol/L Normal 1 K 4.1 LAB L501.5900 98-107 mmol/L Normal CL 102 LAB L501.6100 21.0-3 mmol/L Normal 2.0 CO2 29.0 LAB L501.6200 5-15 Normal GAP 11 Performed By: #### L500.2500 #### [facility] [address] [place], [address] MAGNESIUM Collected: 09/22/2018 Status: F Source: [place] 5:10 AM [facility]POS[facility] TYPE CODE TESTS RESULT OUT OF RANGE REFERENCE UNITS LAB L501.5200 1.6-2.6 mg/dL Normal MG 2.5 Performed By: #### L501.5200 #### [facility] [address] [place], [address] ECHOCARDIOGRAM COMPLETE Observed: 09/21/2018 Status: F Source: [place] 3:36 PM [facility] Cardiovascular Services [address] [place] [address] Echo Complete 09/21/18 1409 MR#: [id number] Acct: [id number] Name: MILAGROS STEVENSON Rep #: [id number] : 1935 82 From: Cornelius Hernández MD Attending Dr: John Vidal MD Status: ADM IN Ordering Dr: Mat Ash Date: 09/21/18 Location: U Sex: F C Admitted: 09/15/18 Reason For Study: CHF Procedure This was a 2D Doppler, Color Flow transthoracic echocardiogram. The study was technically difficult. Due to body habitus. Definity deferred due to increased PAP. Exam performed portable in patient room. Left Ventricle Normal LV size. Left ventricular systolic function is normal. The estimated ejection fraction is 65 %. No regional wall motion abnormalities noted. Right Ventricle Mildly dilated right ventricle. Normal systolic function. Atria The left atrium is mildly enlarged. The right atrium is mildly enlarged. No doppler evidence for ASD. Mitral Valve There is moderate mitral annular calcification. Extension of the mitral annular calcification onto the posterior mitral valve leaflet. Trivial mitral valve insufficiency. Tricuspid Valve Normal tricuspid valve. Trivial tricuspid valve insufficiency. Right ventricular systolic pressure estimated to be 72 mmHg. Aortic Valve Trisinus/trileaflet aortic valve. Mild focal aortic valve calcification. Pulmonic Valve The pulmonic valve is not well visualized. Great Vessels Normal sized aortic root. Calcified aortic root. Pericardium/Pleural No pericardial effusion. MMode/2D Measurements AND Calculations LVIDd: 4.8 cm IVSd: 1.1 cm LVOT diam: 2.0 cm LVIDs: 2.9 cm LVPWd: 0.98 cm LVOT area: 3.3 cm2 RVDd: 4.5 cm FS: 38.7 % Ao root diam: 3.3 cm LAV(MOD-bp): 88.0 ml LA A4 area: 25.2 cm2 LAV(MOD-bp) Indexed: 40.4 ml/m2 LAV(MOD-sp2): 84.1 ml LAV(MOD-sp4): 80.0 ml LA dimension(2D): 3.8 cm RA A4 area: 20.2 cm2 Doppler Measurements AND Calculations MV E max nestor: 119.9 cm/sec Lat Peak E' Nestor: 11.9 cm/sec Med Peak E' Nestor: 9.3 cm/sec MV A max nestor: 90.9 cm/sec E/E' lat: 10.1 E/E' med: 12.9 MV E/A: 1.3 Ao V2 max: 224.0 cm/sec LV V1 max: 141.0 cm/sec SV(LVOT): 87.5 ml Ao max P.1 mmHg LV V1 max P.0 mmHg Ao V2 mean: 156.6 cm/sec LV V1 mean P.0 mmHg Ao mean P.0 mmHg LV V1 mean: 94.5 cm/sec Ao V2 VTI: 41.5 cm LV V1 VTI: 26.6 cm LUCILLE(I,D): 2.1 cm2 LUCILLE(V,D): 2.1 cm2 PA V2 max: 131.8 cm/sec TR max nestor: 377.9 cm/sec TR max P.1 mmHg Interpretation Summary The study was technically difficult. Left ventricular systolic function is normal. The estimated ejection fraction is 65 %. Mildly dilated right ventricle. The left atrium is mildly enlarged. The right atrium is mildly enlarged. There is moderate mitral annular calcification. Extension of the mitral annular calcification onto the posterior mitral valve leaflet. Trivial mitral valve insufficiency. Trivial tricuspid valve insufficiency. Mild focal aortic valve calcification. Calcified aortic root. Right ventricular systolic pressure estimated to be 72 mmHg with pulmonary hypertension. Transmitral diastolic flow velocities suggest diastolic dysfunction (pseudonormal pattern). Ordering Physician: Mat Ash Referring Physician: Poli Mendieta Performed By: Caroline Howell, RASHAAD, RVT 09/21/18 1536 Date Cornelius Hernández MD CC: JOYCE Ash; John Vidal MD; Poli Mendieta MD Date Dictated: 09/21/18 1409 Date Transcribed: 09/21/181535 Chiropractor Sole Practitioner: Signed BASIC METABOLIC Collected: 09/21/2018 Status: F Source: [place] PROFILE ([facility]) 6:50 AM [facility]POS[facility] TYPE CODE TESTS RESULT OUT OF RANGE REFERENCE UNITS LAB L501.0100 74-106 mg/dL Normal GLU 91 Result Comment: Please note revised GLUCOSE reference range effective 2017. LAB L501.1000 7-18 mg/dL High BUN 87 LAB L501.1100 0.55-1.02 mg/dL High CREAT,SERUM 3.07 Result Comment: The validity of the calculated GFR AND GFRAA in patients over 70 years has not been determined. Clinical correlation is essential. LAB L501.1110 >60 mL/min Low EST GFR 16 Result Comment: Non- GFR Calc LAB L501.1115 >60 mL/min Low EST GFR - AA 19 Result Comment: GFR Calc LAB L501.1255 ml/min Normal Estimated CRCL 13.68 LAB L501.1300 10-20 RATIO High BUN/CRE 28.3 LAB L501.2200 8.5-10 mg/dL Normal .1 CA 8.8 LAB L501.5300 136-14 mmol/L Normal 5 NA 141 LAB L501.5600 3.5-5. mmol/L Normal 1 K 4.9 LAB L501.5900 98-107 mmol/L Normal CL 106 LAB L501.6100 21.0-3 mmol/L Normal 2.0 CO2 26.0 LAB L501.6200 5-15 Normal GAP 9 Performed By: #### L500.2500 #### [facility] [address] [place], [place], [address] 12 LEAD ELECTROCARDIOGRAM Observed: 09/20/2018 Status: F Source: [place] 10:20 AM [facility] REPOSITORY [facility] Cardiovascular Services [address] [place] [address] 12 Lead EKG 09/16/18 0520 MR#: [id number] Acct: [id number] Name: MILAGROS STEVENSON Rep #: [id number] : 1935 82 From: Alistair Vidal MD Attending Dr: John Vidal MD Status: ADM IN Ordering Dr: Antonette Brown MD Date: 09/16/18 Location: [facility] Sex: F C Admitted: 09/15/18 Test Reason : AM EKG Blood Pressure : / mmHG Vent. Rate : 105 BPM Atrial Rate : 105 BPM P-R Int : 184 ms QRS Dur : 084 ms QT Int : 340 ms P-R-T Axes : 068 064 061 degrees QTc Int : 449 ms Sinus tachycardia Otherwise normal ECG When compared with ECG of 15-SEP-2018 11:53, MANUAL COMPARISON REQUIRED, DATA IS UNCONFIRMED Confirmed by ALISTAIR VIDAL MD ([id number]), online editor SUNSHINE STODDARD ([id number]) on 09/20/2018 10:20:35 AM Referred By: DR BROWN Confirmed By:ALISTAIR VIDAL MD 09/20/18 1020 Date Alistair Vidal MD CC: Antonette Brown; John Vidal MD; Poli Mendieta MD Signed 12 LEAD ELECTROCARDIOGRAM Observed: 09/20/2018 Status: F Source: [place] 10:03 AM [facility] REPOSITORY [facility] Cardiovascular Services [address] [place] [address] 12 Lead EKG 09/15/18 1153 MR#: [id number] Acct: [id number] Name: MILAGROS STEVENSON Rep #: [id number] : 1935 82 From: Alistair Vidal MD Attending Dr: John Vidal MD Status: ADM IN Ordering Dr: Dario Roy MD Date: 09/15/18 Location: [facility] Sex: F C Admitted: 09/15/18 Test Reason : SOB Blood Pressure : / mmHG Vent. Rate : 089 BPM Atrial Rate : 089 BPM P-R Int : 158 ms QRS Dur : 086 ms QT Int : 370 ms P-R-T Axes : 053 048 020 degrees QTc Int : 450 ms Sinus rhythm with marked sinus arrhythmia Otherwise normal ECG Confirmed by CLIVE SHELDON, ALISTAIR ([id number]), online editor SUNSHINE STODDARD ([id number]) on 09/20/2018 10:02:35 AM Referred By: ALBERT Confirmed By:ALISTAIR VIDAL MD 09/20/18 1002 Date Alistair Vidal MD CC: Dario Roy MD; John Vidal MD; Poli Mendieta MD Signed CHEST PA AND LATERAL Observed: 09/20/2018 Status: F Source: [place] 8:45 AM [facility] RE[facility]IT[facility] Imaging Services [address] [place] [address] Chest PA and Lateral MR#: [id number] Acct: [id number] Name: MILAGROS STEVENSON Rep #: [id number] : 1935 F 82 From: Bianca Rutherford MD PCP: Poli Mendieta MD Status: ADM IN Study: Chest PA and Lateral Date of Exam: 09/20/18 Exam# [id number] Ordering Dr: Mat Ash STUDY: X-RAY CHEST REASON FOR EXAM: Female, 82 years old. SOB. TECHNIQUE: PA and lateral chest. COMPARISON: 09/15/2018. 08/16/2018. CTA chest 04/11/2018. FINDINGS: Interstitial prominence is again noted without significant change compared to recent studies. There is no demonstrated pleural abnormality. Normal size heart. Normal mediastinum and awilda. Normal visualized pulmonary arteries. Normal visualized aortic arch and descending thoracic aorta. Normal visualized thoracic spine. Normal visualized ribs, clavicles, and shoulders. There is no demonstrated abnormality of the visualized soft tissue structures of the upper abdomen. RAD/Chest PA and Lateral IMPRESSION: Question mild pulmonary edema superimposed on mild chronic interstitial fibrosis. Electronically Signed: Bianca Rutherford MD at 23:56 EST Tel , Service support , CC: JOYCE Ash; Poli Mendieta MD Chiropractor Sole Practitioner: Signed BASIC METABOLIC Collected: 09/20/2018 Status: F Source: [place] PROFILE (BMP) 4:45 AM [facility] REPOS[facility] TYPE CODE TESTS RESULT OUT OF RANGE REFERENCE UNITS LAB L501.0100 74-106 mg/dL High GLU 118 Result Comment: Fasting Glucose result from 100 to 125 mg/dL suggests IMPAIRED HOMEOSTASIS per A.D.A. criteria. Please note revised GLUCOSE reference range effective 2017. LAB L501.1000 7-18 mg/dL High BUN 83 LAB L501.1100 0.55-1.02 mg/dL High CREAT,SERUM 3.23 Result Comment: The validity of the calculated GFR AND GFRAA in patients over 70 years has not been determined. Clinical correlation is essential. LAB L501.1110 >60 mL/min Low EST GFR 15 Result Comment: Non- GFR Calc LAB L501.1115 >60 mL/min Low EST GFR - AA 18 Result Comment: GFR Calc LAB L501.1255 ml/min Normal Estimated CRCL 13.00 LAB L501.1300 10-20 RATIO High BUN/CRE 25.7 LAB L501.2200 8.5-10 mg/dL Normal .1 CA 8.5 LAB L501.5300 136-14 mmol/L Normal 5 NA 141 LAB L501.5600 3.5-5. mmol/L High 1 K 5.4 Result Comment: Slight Hemolysis, Result may be falsely increased. LAB L501.5900 98-107 mmol/L Normal CL 106 LAB L501.6100 21.0-32.0 mmol/L Normal CO2 23.0 LAB L501.6200 5-15 Normal GAP 12 Performed By: #### L500.2500 #### [facility] [address] [place], [address] CONSULTATION Observed: 09/19/2018 Status: F Source: [place] 4:12 PM [facility] Medical Records Department [address] [place] [address] Consultation 09/19/18 1605 MR#: [id number] Acct: [id number] Name: MILAGROS STEVENSON Rep #: [id number] : 1935 82 From: Ferdinand Aleman MD PCP: Poli Mendieta MD Status: ADM IN Y Location: [place] [address] Problem List (1) Acute kidney injury superimposed on chronic kidney disease Status: Chronic Consultation - Renal PCP/ Referring MD: Requesting physician: [] Primary care physician: Poli Mendieta MD - History of Present Illness History of Present Illness: The patient is a 82 year old F past medical history of renal cell carcinoma status post nephrectomy , chronic kidney disease stage III , chronic respiratory failure , pulmonary hypertension , gout , obesity , and TIA . Patient presented with progressive shortness of breath . Patient was taken Lasix daily at home . She says she continued taking Lasix at home. Chest x-ray at admission shows mild vascular congestion. Last echocardiogram showed ejection fraction 60%, diastolic dysfunction and moderate pulmonary hypertension. Tricuspid valve regurgitation +2. Patient initially was treated with IV Lasix while inpatient then switched to p.o. Lasix for the last 3 days. Renal team was consulted for worsening kidney function. Patient's weight remained the same no improvement. She still shortness of breath. Still requiring oxygen. No NSAIDs used. No IV contrast exposure. Currently taking Lasix 40 mg once a day. Urine output 400-500 for the last 3 days. Review of system: 12 system review is negative except for shortness of breath and fatigue [] - Allergies Allergies: Allergies clindamycin [From Cleocin] Allergy (Verified 09/15/18 10:54) Unknown oxycodone HCl [From OxyContin] Allergy (Verified 09/15/18 10:54) Anaphylaxis Sulfa (Sulfonamide Antibiotics) Allergy (Verified 09/15/18 10:54) Anaphylaxis vancomycin Allergy (Verified 09/15/18 10:54) Hives guaifenesin [From Entex LA] Adverse Reaction (Verified 09/15/18 10:54) Unknown phenylephrine [From Entex LA] Adverse Reaction (Verified 09/15/18 10:54) Unknown phenylpropanolamine [From Entex LA] Adverse Reaction (Verified 09/15/18 10:54) Unknown BETA BLOCKERS Adverse Reaction (Uncoded 09/15/18 10:54) Unknown - Current Medications Current Medications: Current Medications Acetaminophen (Tylenol) 650 mg PO Q6H PRN PRN PRN Reason: Mild Pain (scale 0-3)/T>100.7 Last Admin: 09/16/18 14:53 Dose: 650 mg Hydrocodone Bitart/Acetaminophen (Vanceburg 5mg-325mg) 1 tablet PO TID PRN PRN PRN Reason: PAIN Albuterol Sulfate (Ventolin Aerosols) 2.5 mg INHALATION Q4H PRN PRN PRN Reason: Shortness of breath, wheezing Albuterol/Ipratropium (Duoneb) 3 ml INHALATION Q6H.RT [facility] Last Admin: 09/19/18 13:04 Dose: 3 ml Amlodipine Besylate (Norvasc) 10 mg PO DAILY [facility] Last Admin: 09/19/18 10:34 Dose: 10 mg Aspirin (Aspirin) 325 mg PO DAILY@0800 [facility] Last Admin: 09/19/18 08:53 Dose: 325 mg Diltiazem HCl (Cardizem) 60 mg PO Q8 [facility] Last Admin: 09/19/18 14:18 Dose: 60 mg Estrogens Conjugated (Premarin) 0.3 mg PO QHS [facility] Last Admin: 09/18/18 21:39 Dose: 0.3 mg Furosemide (Lasix) 60 mg IV BID@1000,1800 [facility] Heparin Sodium (Porcine) (Heparin Na) 5,000 unit SC Q8 [facility] Last Admin: 09/19/18 14:18 Dose: 5,000 unit Hydralazine HCl (Apresoline) 25 mg PO TID [facility] Last Admin: 09/19/18 14:18 Dose: 25 mg Hydralazine HCl (Apresoline Iv) 10 mg IV Q8H PRN PRN PRN Reason: SBP>160 Last Admin: 09/16/18 01:21 Dose: 10 mg Magnesium Hydroxide (Milk Of Magnesia) 30 ml PO DAILY PRN PRN Reason: Constipation Last Admin: 09/19/18 10:38 Dose: 30 ml Medroxyprogesterone Acetate (Cycrin,Provera) 5 mg PO QHS [facility] Ondansetron HCl (Zofran) 4 mg IV Q8H PRN PRN PRN Reason: Nausea Prednisone () 40 mg PO DAILY@0800 [facility] Last Admin: 09/19/18 08:54 Dose: 40 mg Sodium Chloride () 5 - 15 ml IV UD PRN PRN Reason: SALINE FLUSH Last Admin: 09/16/18 18:26 Dose: 10 ml Zolpidem Tartrate (Ambien (Generic)) 5 mg PO QHS PRN PRN PRN Reason: INSOMNIA - Past Medical History Past Medical History (Chronic Problems): Chronic Problems (Last Updated 08/17/18 @ 13:56 by Antonette Brown MD) Acute kidney injury superimposed on chronic kidney disease (Chronic) COPD (chronic obstructive pulmonary disease) (Chronic) Chronic respiratory failure with hypoxia (Chronic) Chronic renal failure, stage 3 (moderate) (Chronic) 3-4 Hormone replacement therapy (Chronic) Pulmonary hypertension (Chronic) PA pressure 57 in November 2017 Stasis dermatitis (Chronic) Obesity, morbid, BMI 40.0-49.9 (Chronic) Gout (Chronic) Hypertension (Chronic) History of TIA (transient ischemic attack) (Chronic) 1998 History of kidney cancer (Chronic) S/P nephrectomy - Past Surgical History Surgical History: - - Tonsillectomy, appendectomy, cholecystectomy, bilateral shoulder rotator cuff repair, right elbow fracture with surgery with pin in place, bilateral total knee replacement. Renal cell carcinoma, Surgery for SBO, Single salpingectomy and oophorectomy for ectopic . - Social History Smoking Status: Former smoker Alcohol: None Drugs: None - Family History Paternal Family History: Family History (Last Reviewed 08/16/18 @ 18:39 by Violeta Dowling DO) Mother CAD (coronary artery disease) Father Colon cancer History Items: Cancer - Pancreatic CA, age 3838 years old., Diabetes, Heart Disease, Hypertension Maternal Family History: Family History (Last Reviewed 08/16/18 @ 18:39 by Violeta Dowling DO) Mother CAD (coronary artery disease) Father Colon cancer History Items: Heart Disease, Hypertension - Physical Exam General: Alert, Oriented x3 HEENT: Atraumatic Oral: Moist Mucosa Neck: Supple, No JVD Lungs: - - Bilateral lung base crackles Cardiovascular: Regular rate, Regular Rhythm, Normal S1 Abdomen: Bowel Sounds Present, Soft, Non Tender Extremities: No clubbing, No cyanosis, - - +1 edema of lower extremities Skin: No rashes Musculoskeletal: No Tenderness to Palpation of Joints or Extremities Lymphatic: No Cervical, Supraclavicular, or Inguinal Adenopathy Neurological: Cranial nerves II-XII grossly intact, Neuro grossly intact Psych/Mental Status: Normal Affect Vital Signs Temp Pulse Resp BP Pulse Ox 97.2 F L 84 26 H 136/75 H 94 09/19/18 10:32 09/19/18 15:13 09/19/18 13:05 09/19/18 14:18 09/19/18 10:32 Oxygen Flow Rate (L/min) 3 Oxygen Delivery Method Nasal Cannula Weight: 110.6 kg Body Mass Index (BMI) 38.8 Intake and Output for Last 24 Hours Intake Total 420 / 420 1160 / 1160 480 / 480 Output Total 400 / 400 500 / 500 400 / 400 Balance / 20 660 / 660 80 / 80 Laboratory Tests Past 24 Hrs Sodium 142 Potassium 5.0 Chloride 107 Carbon Dioxide 23.0 Anion Gap 12 Assessment/Plan 1-acute kidney injury on chronic kidney disease. CKD is most probably from nephrectomy. Baseline creatinine seems around 1.4-1.6. Worsening kidney function is most probably from cardiorenal syndrome. Creatinine has been rising steadily from 1.98->2.4->3.8. Patient is breathing is not better, which is not decreasing. I will increase Lasix dose to 60 mg twice a day. I will continue to monitor kidney function and electrolytes closely while on diuretics. Please avoid MOISES inhibitor or ARB for now. Check renal function in a.m.. 2-hypertension: Blood pressure is well controlled. Continue same blood pressure medication. Please avoid MOISES inhibitor or ARB 3-acute on chronic respiratory failure due to most probably CHF. I will increase Lasix dose as above. Nasal cannula support as per the primary service. Low-salt diet. Limit fluid intake to 50 ounces daily. Thank you for the consult. We will continue to follow 09/19/18 [id number] <Electronically signed by Ferdinand Aleman MD> Date Ferdinand Aleman MD Cosigner Signature (if applicable): Date CC: Ferdinand Aleman MD; Poli Mendieta MD Signed BASIC METABOLIC Collected: 09/19/2018 Status: F Source: [facility] PROFILE (BMP) 5:10 AM [facility] REPOS[facility] TYPE CODE TESTS RESULT OUT OF RANGE REFERENCE UNITS LAB L501.0100 74-106 mg/dL High GLU 121 Result Comment: Fasting Glucose result from 100 to 125 mg/dL suggests IMPAIRED HOMEOSTASIS per A.D.A. criteria. Please note revised GLUCOSE reference range effective 2017. LAB L501.1000 7-18 mg/dL High BUN 67 LAB L501.1100 0.55-1.02 mg/dL High CREAT,SERUM 3.08 Result Comment: The validity of the calculated GFR AND GFRAA in patients over 70 years has not been determined. Clinical correlation is essential. LAB L501.1110 >60 mL/min Low EST GFR 15 Result Comment: Non- GFR Calc LAB L501.1115 >60 mL/min Low EST GFR - AA 19 Result Comment: GFR Calc LAB L501.1255 ml/min Normal Estimated CRCL 13.64 LAB L501.1300 10-20 RATIO High BUN/CRE 21.8 LAB L501.2200 8.5-10 mg/dL Normal .1 CA 8.5 LAB L501.5300 136-14 mmol/L Normal 5 NA 142 LAB L501.5600 3.5-5. mmol/L Normal 1 K 5.0 LAB L501.5900 98-107 mmol/L Normal CL 107 LAB L501.6100 21.0-3 mmol/L Normal 2.0 CO2 23.0 LAB L501.6200 5-15 Normal GAP 12 Performed By: #### L500.2500 #### [facility] [address] [place], [address] BASIC METABOLIC Collected: 09/18/2018 Status: F Source: PARSONS PROFILE (BMP) 5:12 AM [facility]POS[facility] TYPE CODE TESTS RESULT OUT OF RANGE REFERENCE UNITS LAB L501.0100 74-106 mg/dL High GLU 120 Result Comment: Fasting Glucose result from 100 to 125 mg/dL suggests IMPAIRED HOMEOSTASIS per A.D.A. criteria. Please note revised GLUCOSE reference range effective 2017. LAB L501.1000 7-18 mg/dL High BUN 46 LAB L501.1100 0.55-1.02 mg/dL High CREAT,SERUM 2.48 Result Comment: The validity of the calculated GFR AND GFRAA in patients over 70 years has not been determined. Clinical correlation is essential. LAB L501.1110 >60 mL/min Low EST GFR 20 Result Comment: Non- GFR Calc LAB L501.1115 >60 mL/min Low EST GFR - AA 24 Result Comment: GFR Calc LAB L501.1255 ml/min Normal Estimated CRCL 16.94 LAB L501.1300 10-20 RATIO Normal BUN/CRE 18.5 LAB L501.2200 8.5-10 mg/dL Low .1 CA 8.4 LAB L501.5300 136-14 mmol/L Normal 5 NA 142 LAB L501.5600 3.5-5. mmol/L Normal 1 K 4.3 LAB L501.5900 98-107 mmol/L Normal CL 106 LAB L501.6100 21.0-3 mmol/L Normal 2.0 CO2 25.0 LAB L501.6200 5-15 Normal GAP 11 Performed By: #### L500.2500 #### [facility] [address] [place], [address] BASIC METABOLIC Collected: 09/17/2018 Status: F Source: PAR[facility]S PROFILE (BMP) 5:10 AM [facility]POS[facility] TYPE CODE TESTS RESULT OUT OF RANGE REFERENCE UNITS LAB L501.0100 74-106 mg/dL High GLU 134 Result Comment: Fasting Glucose result greater than or equal to 126 mg/dL suggests DIABETES MELLITUS per A.D.A. criteria. Please note revised GLUCOSE reference range effective 2017. LAB L501.1000 7-18 mg/dL High BUN 30 LAB L501.1100 0.55-1.02 mg/dL High CREAT,SERUM 1.98 Result Comment: The validity of the calculated GFR AND GFRAA in patients over 70 years has not been determined. Clinical correlation is essential. LAB L501.1110 >60 mL/min Low EST GFR 26 Result Comment: Non- GFR Calc LAB L501.1115 >60 mL/min Low EST GFR - AA 31 Result Comment: GFR Calc LAB L501.1255 ml/min Normal Estimated CRCL 21.21 LAB L501.1300 10-20 RATIO Normal BUN/CRE 15.2 LAB L501.2200 8.5-10 mg/dL Low .1 CA 8.1 LAB L501.5300 136-14 mmol/L Normal 5 NA 142 LAB L501.5600 3.5-5. mmol/L Normal 1 K 3.8 LAB L501.5900 98-107 mmol/L High CL 108 LAB L501.6100 21.0-3 mmol/L Normal 2.0 CO2 23.0 LAB L501.6200 5-15 Normal GAP 11 Performed By: #### L500.2500, L501.5200 #### [facility] [address] [place], [place], [address] MAGNESIUM Collected: 09/17/2018 Status: F Source: [facility] 5:10 AM [facility]POS[facility] TYPE CODE TESTS RESULT OUT OF RANGE REFERENCE UNITS LAB L501.5200 1.6-2.6 mg/dL Normal MG 2.1 Performed By: #### L500.2500, L501.5200 #### [facility] [address] [place], [address] CBC W/DIFF, AUTOMATED Collected: 09/16/2018 Status: F Source: [place] 6:45 AM [facility]POS[facility] TYPE CODE TESTS RESULT OUT OF RANGE REFERENCE UNITS LAB L100.1000 4.4-11.0 K/mm3 Normal WBC 8.4 LAB L100.1200 4.2-5.4 M/mm3 Normal RBC 4.41 LAB L100.1300 12.0-15.0 g/dl Normal HGB 12.5 LAB L100.1400 37-47 % Normal HCT 39.7 LAB L100.1500 81-99 fL Normal MCV 90.0 LAB L100.1600 27.0-32.0 pg Normal MCH 28.3 LAB L100.1700 32-36 g/gl Low MCHC 31.5 LAB L100.1810 11.6-14.6 % High RDW CV 15.9 LAB L100.1820 35.1-43.9 fl High RDW SD 52.0 LAB L100.1900 150-450 K/mm3 Normal PLT 289 LAB L100.2000 6.2-12.0 fl Normal MPV 10.0 LAB L100.2100 47-70 % High NEUT% 71.7 LAB L100.2200 19-41 % Low LY% 14.0 LAB L100.2300 0-10 % High MONO% 12.1 LAB L100.2400 0-5 % Normal EO% 1.3 LAB L100.2500 0-1 % Normal BASO% 0.5 LAB L100.2550 0.0-0.9 % Normal IM GRAN % 0.400 Result Comment: IG% - Immature Granulocytes (promyelocytes, myelocytes and metamyelocytes) > 1% indicates that a LEFT SHIFT is Present. LAB L100.2620 2.0-7.7 X10 3/uL Normal Absolute Neut 6.0 LAB L100.2720 0.83-4.51 X10 3/ul Normal Absolute Lymph 1.17 Performed By: #### L100.0100 #### [facility] [address] [place], [address] BASIC METABOLIC Collected: 09/16/2018 Status: F Source: [facility]S PROFILE ([facility]) 6:45 AM [facility] TYPE CODE TESTS RESULT OUT OF RANGE REFERENCE UNITS LAB L501.0100 74-106 mg/dL Normal GLU 101 Result Comment: Fasting Glucose result from 100 to 125 mg/dL suggests IMPAIRED HOMEOSTASIS per A.D.A. criteria. Please note revised GLUCOSE reference range effective 2017. LAB L501.1000 7-18 mg/dL High BUN 20 LAB L501.1100 0.55-1.02 mg/dL High CREAT,SERUM 1.58 Result Comment: The validity of the calculated GFR AND GFRAA in patients over 70 years has not been determined. Clinical correlation is essential. LAB L501.1110 >60 mL/min Low EST GFR 33 Result Comment: Non- GFR Calc LAB L501.1115 >60 mL/min Low EST GFR - AA 40 Result Comment: GFR Calc LAB L501.1255 ml/min Normal Estimated CRCL 26.58 LAB L501.1300 10-20 RATIO Normal BUN/CRE 12.7 LAB L501.2200 8.5-10 mg/dL Normal .1 CA 8.7 LAB L501.5300 136-14 mmol/L Normal 5 NA 143 LAB L501.5600 3.5-5. mmol/L Normal 1 K 3.8 LAB L501.5900 98-107 mmol/L High CL 109 LAB L501.6100 21.0-3 mmol/L Normal 2.0 CO2 24.0 LAB L501.6200 5-15 Normal GAP 10 Performed By: #### L500.2500, L501.5200 #### [facility] [address] [facility] [place], [address] MAGNESIUM Collected: 09/16/2018 Status: F Source: [facility] 6:45 AM [facility]POS[facility] TYPE CODE TESTS RESULT OUT OF RANGE REFERENCE UNITS LAB L501.5200 1.6-2.6 mg/dL Normal MG 2.1 Performed By: #### L500.2500, L501.5200 #### [facility] [address] [place], [address] URIC ACID Collected: 09/16/2018 Status: F Source: ROMEL 6:45 AM [facility] RE[facility] Order Comment: Comments: add on TYPE CODE TESTS RESULT OUT OF RANGE REFERENCE UNITS LAB L501.1400 2.6-6.0 mg/dL High URIC 10.8 Result Comment: The drugs N-Acetylcysteine and Metamizole may falsely depress this assay. Performed By: #### L501.1400 #### [facility] [address] [facility], [address] TROPONIN-I Collected: 09/15/2018 Status: F Source: [facility]S 5:59 PM [facility] Order Comment: 'TROP' Serial specimen #1, #2 or #3: 3 TYPE CODE TESTS RESULT OUT OF RANGE REFERENCE UNITS LAB L501.4010 <0.045 ng/mL High 0.056 TROPONIN-I Result Comment: TROPONIN-I EXPECTED VALUES <0.045 Negative 0.045 - 0.590 Consistent with Cardiac Damage > OR = 0.600 Critical Value Not every elevated troponin is indicative of OR. These values should be used with clinical judgement in examining the patient's clinical picture for diagnosis. To establish a diagnosis of OR versus myocardial injury, there must be a demonstrated rise and/or fall in the troponin values, in addition to ischemic symptoms, EKG changes, new regional wall motion abnormality, and/or angiographical evidence. PLEASE NOTE: REFERENCE RANGES EDITED 18 Performed By: #### L501.4010 #### [facility] [address] [facility] [place], [address] EMERGENCY DEPARTMENT Observed: 09/15/2018 Status: F Source: PARSONS SUMMARY 4:57 PM [facility] REPOSITORY [facility] Medical Records Department [address] [facility] [place] [address] Emergency Department Summary 09/15/18 1138 MR#: [id number] Acct: [id number] Name: MILAGROS STEVENSON Rep #: [id number] : 1935 82 From: Dario Roy MD PCP: Poli Mendieta MD Status: ADM IN - ER Visit Summary Date of Service: 09/15/18 Chief Complaint: Shortness of breath History of Present Illness: The patient is a 82 F history of prior CHF, COPD, TIA and renal insufficiency. Patient was admitted about a month ago for CHF. She is on 4 L of oxygen at home. States she was doing well until last night had trouble sleeping. Said position related make a big difference. She denies any chest pain. She has had a mild cough of clear sputum. She denies any chest pain. No hemoptysis. She is never had a DVT or PE. She denies any leg swelling and states when she had CHF before she did not have leg swelling. No calf pain. She denies any fever. Physical Examination: Well-appearing older female. Vital signs are currently stable. She is afebrile. Pulse ox is 94% on 4 L. No hypoxia on oxygen. H EENT exam unremarkable. Neck nontender. No JVD. Lungs clear to auscultation bilaterally. No rales, rhonchi or wheezing. Heart tachycardic rate about 103 no murmur. Abdomen is soft and nontender. Normal bowel sounds no peritoneal signs. Extremities she moves all 4. Neurovascular intact. Calves are nontender without edema nor cords. Neurologically she is awake and alert with no focal motor deficits. She is moving all 4 extremities. Back exam nontender. Skin unremarkable. Test Results: Chest x-ray shows congestive heart failure and pulmonary edema read by myself. Chronic changes. EKG sinus rhythm rate 89. No ischemia. CBC White count 9. Hemoglobin 13. Chemistries unremarkable she has chronic renal insufficiency with a creatinine 1.78. Normal gap. Normal troponin. BNP elevated 618. Consistent with Pulmonary edema. Emergency Department Course and Treatment: Older female with dyspnea with a history of CHF, COPD and renal insufficiency. Repeat exam unchanged. I discussed with the patient and her son of her test results. They both would appreciate admission for diuresis. She has been given IV Lasix in the ER. Treatment Plan: Diuresis for pulmonary edema Disposition: Admission Impression: Acute dyspnea secondary to acute exacerbation of CHF History of CHF, COPD, home O2 and renal insufficiency This note was generated with [employer] dictation software. It may contain incorrect words, spelling, and punctuation that were not noted in review of the chart prior to signing ED Disposition - Plan for ED Patient: Chief Complaint: Shortness of Breath Referrals: Poli Mendieta MD [Primary Care Provider] - What to do if you have Problems For any increased pain, shortness of breath, bleeding, nausea or vomiting, chest pain, or any unexpected problems, contact your Primary Care Provider. Call [facility] ([phone]) or report to the closest Emergency Room. Call 911 if necessary. 09/15/18 2927 <Electronically signed by Dario Roy MD> Date Dario Roy MD Cosigner Signature (If Indicated): Date CC: Poli Mendieta MD TROPONIN-I Collected: 09/15/2018 Status: F Source: [facility]S 3:33 PM [facility] Order Comment: 'TROP' Serial specimen #1, #2 or #3: 2 TYPE CODE TESTS RESULT OUT OF RANGE REFERENCE UNITS LAB L501.4010 <0.045 ng/mL High 0.051 TROPONIN-I Result Comment: TROPONIN-I EXPECTED VALUES <0.045 Negative 0.045 - 0.590 Consistent with Cardiac Damage > OR = 0.600 Critical Value Not every elevated troponin is indicative of OR. These values should be used with clinical judgement in examining the patient's clinical picture for diagnosis. To establish a diagnosis of OR versus myocardial injury, there must be a demonstrated rise and/or fall in the troponin values, in addition to ischemic symptoms, EKG changes, new regional wall motion abnormality, and/or angiographical evidence. PLEASE NOTE: REFERENCE RANGES EDITED 18 Performed By: #### L501.4010 #### [facility] [address] [facility] [place], [address] HISTORY AND PHYSICAL Observed: 09/15/2018 Status: F Source: [facility]S EXAM 1:43 PM [facility] RE[facility] Medical Records Department [address] [place] [address] History and Physical 09/15/18 1318 MR#: [id number] Acct: [id number] Name: MILAGROS STEVENSON Rep #: [id number] : 1935 82 From: Antonette Brown MD PCP: Poli Mendieta MD Status: ADM IN Location: [place] [address] Problem List (1) COPD (chronic obstructive pulmonary disease) Status: Chronic (2) Chronic respiratory failure with hypoxia Status: Chronic (3) Chronic renal failure, stage 3 (moderate) Status: Chronic Comment: 3-4 (4) Pulmonary hypertension Status: Chronic Comment: PA pressure 57 in November 2017 (5) Gout Status: Chronic Qualifiers: (6) Hypertension Status: Chronic Qualifiers: (7) History of TIA (transient ischemic attack) Status: Chronic Comment: 1998 (8) History of kidney cancer Status: Chronic Comment: S/P nephrectomy History of Present Illness Date of Admission: 09/15/18 Chief Complaint: Shortness of breath. The patient is a 82 year old F with past medical history as mentioned above presented to the emergency room because of shortness of breath. Her symptoms started last night with exertional shortness of breath, she can walk only for a few steps before she gets short of breath, aggravated by walking for more distance, relieved by rest, associated with mild orthopnea and cough with clear sputum. She denied leg edema. She stated that she takes her Lasix daily as supposed to be. She does have chronic hypoxic respiratory failure and she has been on oxygen at home at 4 L. She denies fever or chills. She denied chest pain, palpitation, dizziness or lightheadedness. In the emergency department, she was afebrile, blood pressure was slightly elevated, pulse ox was 97% on 4 L. Her routine blood work was remarkable for BUN of 22 and creatinine of 1.78, otherwise normal. Troponin was 0.038. BNP was 618. Chest x-ray revealed bilateral pulmonary vascular congestion with fluid in the fissure on the right side. EKG revealed normal sinus rhythm with sinus arrhythmia, no acute ischemic changes. She is being admitted for acute on chronic diastolic CHF. Past Medical History Past Medical History (Chronic Problems): Chronic Problems (Last Updated 08/17/18 @ 13:56 by Antonette Brown MD) COPD (chronic obstructive pulmonary disease) (Chronic) Chronic respiratory failure with hypoxia (Chronic) Chronic renal failure, stage 3 (moderate) (Chronic) 3-4 Hormone replacement therapy (Chronic) Pulmonary hypertension (Chronic) PA pressure 57 in November 2017 Stasis dermatitis (Chronic) Obesity, morbid, BMI 40.0-49.9 (Chronic) Gout (Chronic) Hypertension (Chronic) History of TIA (transient ischemic attack) (Chronic) 1998 History of kidney cancer (Chronic) S/P nephrectomy Medical History: Medical History (Last Updated 08/17/18 @ 13:56 by Antonette Brown MD) Cancer of right kidney 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 Impingement syndrome of left shoulder M75.42 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 DJD (degenerative joint disease) M19.90 Venous insufficiency I87.2 Elbow fracture, right S42.401A Allergies clindamycin [From Cleocin] Allergy (Verified 09/15/18 10:54) Unknown oxycodone HCl [From OxyContin] Allergy (Verified 09/15/18 10:54) Anaphylaxis Sulfa (Sulfonamide Antibiotics) Allergy (Verified 09/15/18 10:54) Anaphylaxis vancomycin Allergy (Verified 09/15/18 10:54) Hives guaifenesin [From Entex LA] Adverse Reaction (Verified 09/15/18 10:54) Unknown phenylephrine [From Entex LA] Adverse Reaction (Verified 09/15/18 10:54) Unknown phenylpropanolamine [From Entex LA] Adverse Reaction (Verified 09/15/18 10:54) Unknown BETA BLOCKERS Adverse Reaction (Uncoded 09/15/18 10:54) Unknown Home Medications: Ambulatory Orders Medication Instructions Recorded Surgical History: Surgical History (Last Reviewed 08/16/18 @ 18:39 by Violeta Dowling DO) H/O rotator cuff surgery Z98.890 right History of appendectomy Z90.49 age 18 History of left knee replacement Z96.652 2007 History of nephrectomy Z90.5 1994 for cancer History of total right knee replacement Z96.651 2010 Hx of cholecystectomy Z90.49 2016 Hx of removal of ovary Surgical History: - - Tonsillectomy, appendectomy, cholecystectomy, bilateral shoulder rotator cuff repair, right elbow fracture with surgery with pin in place, bilateral total knee replacement. Renal cell carcinoma, Surgery for SBO, Single salpingectomy and oophorectomy for ectopic . Lives: With Family Smoking Status: Never smoker Alcohol: None Drugs: None - *Family History Paternal Family History: Family History (Last Reviewed 08/16/18 @ 18:39 by Violeta Dowling DO) Mother CAD (coronary artery disease) Father Colon cancer History Items: Cancer - Pancreatic CA, age 3838 years old., Diabetes, Heart Disease, Hypertension Maternal Family History: Family History (Last Reviewed 08/16/18 @ 18:39 by Violeta Dowling DO) Mother CAD (coronary artery disease) Father Colon cancer History Items: Heart Disease, Hypertension Review of Systems Constitutional: Denies: Anorexia, Chills, Fever, Weakness Eyes: Denies: Blurred vision, Double vision, Redness HEENT: Denies: Difficulty Hearing, Ear Pain, Eye Pain, Nasal Congestion, Sore Throat Cardiovascular: Reports: Orthopnea. Denies: Chest Pain, Chest Pressure, Chest Tightness, Edema, Light Headedness, Paroxysmal Noc. Dyspnea, Syncope Respiratory: Reports: Cough, Shortness of breath upon exertion, Sputum production. Denies: Pleuritic Pain, Wheezing Gastrointestinal: Denies: Abdominal Pain, Constipation, Diarrhea, Nausea, Vomiting Genitourinary: Denies: Dysuria, Frequency, Hematuria Musculoskeletal: Denies: Arm Pain, Back Pain, Foot Pain Skin: Denies: Dryness, Rash Neurological: Denies: Balance problems, Change in Speech, Slurred speech, Confusion, Headaches, Incoordination, Numbness Psychiatric: Denies: Anxiety, Depression Endocrine: Denies: Change in Body Habitus, Polydipsia VTE Information - Inpt Only VTE Present on Admission: No VTE Mechan Device Prophylaxis: None VTE Pharm Prophylaxis ordered?: Yes - Physical Exam General: Alert, Oriented x3, Cooperative, - - Minimally short of breath. HEENT: Atraumatic, PERRLA, EOMI, Normocephalic Oral: Moist Mucosa, No Gingival or Mucosal Lesions/ Ulcerations Neck: Supple, No JVD, Negative Carotid Bruits, Trachea Midline, Thyroid Normal Size and Texture Lungs: No wheeze, No rales, Diminished, Rales, Short of Breath, - - Decreased breath sounds bilateral, bilateral basal crackles. Cardiovascular: Regular rate, Regular Rhythm, Normal S1, Normal S2, PMI Normal Abdomen: Bowel Sounds Present, Soft, Non Tender, Non-Distended, No Hepato-splenomegaly, Obese Extremities: No clubbing, No cyanosis, No edema Skin: No rashes, No breakdown Lymphatic: No Cervical, Supraclavicular, or Inguinal Adenopathy Neurological: Cranial nerves II-XII grossly intact, Motor Exam 5/5 strength throughout Psych/Mental Status: Normal Affect, Appropriate, Alert and oriented to time, place, person, mood and affect Vital Signs Temp Pulse Resp BP Pulse Ox 98.5 F 93 23 H 158/91 H 97 09/15/18 13:14 09/15/18 13:14 09/15/18 13:14 09/15/18 13:14 09/15/18 13:14 Oxygen Flow Rate (L/min) 4 Oxygen Delivery Method Nasal Cannula Weight: 249 lb Body Mass Index (BMI) 40.1 Laboratory Tests Past 24 Hrs WBC 9.3 WBC RBC Hgb Hct MCV MCH MCHC RDW RDW Differential Plt Count MPV Immature Gran % (Auto) Neut % (Auto) Lymph % (Auto) Clinical Impression(s) from Imaging Studies Chest X-Ray 09/15/18 11:37 IMPRESSION: Suspicious mild CHF when compared to 08/18/2018. Electronically Signed: Alexis Millan MD at 12:55 EST , Service support , Assessment/Plan This is an 82 years old female patient presented to the emergency room because of exertional shortness of breath and she was found to have chest x-ray findings consistent with acute on chronic diastolic CHF and she is being admitted for treatment. #1 acute on chronic diastolic CHF/preserved ejection fraction: 6 reviewed, BNP is elevated. EKG revealed sinus rhythm with marketed sinus arrhythmia. Troponin is negative. She had 2D echocardiogram back on November, that revealed ejection fraction of 60%, pulmonary artery pressure of 59 consistent with moderate pulmonary hypertension. She had nuclear stress test on April, that revealed no evidence of stress-induced myocardial perfusion changes and her ejection fraction was 57%. Plan: Admit to PCU, cardiac monitoring, serial cardiac enzymes, fluid restriction to less than 1500 cc daily, IV Lasix twice daily, continue hydralazine and aspirin, repeat CBC and BMP tomorrow morning. Incentive spirometer, bronchodilators, and Protopic chart, PT OT evaluation and treatment. #2 COPD/chronic hypoxic respiratory failure: Patient has been on home oxygen at 4 L. At this time, she is dyspneic and tachypneic, on 4 L. Plan for IV diuresis, bronchodilators, incentive spirometer, chest physiotherapy. #3 stage III chronic kidney disease: Baseline creatinine has been around 1.2-1.8 mg/dL. Admission creatinine is 1.78, stable at baseline. Expect creatinine to go up with IV diuresis, repeat BMP tomorrow morning. #4 hypertension: Blood pressure slightly elevated, continue felodipine and hydralazine, IV Lasix. #5 gout: Stable, no acute issues. She is not on any medication for maintenance. #6 history of renal cell carcinoma: Status post nephrectomy, kidney function stable as above. #7 history of TIA: Stable, continue aspirin. #8 DVT prophylaxis: Subcu heparin. This note was generated with Floobitsation software. It may contain incorrect words, spelling, and punctuation that were not noted in checking the note before signing. Code Visit Inpatient E AND M: [id number] Init Hosp L3 09/15/18 1343 <Electronically signed by Antonette Brown MD> Date Antonette Brown MD Cosigner Signature: Date (if applicable) CC: Antonette Brown; Poli Mendieta MD Signed CBC W/DIFF, AUTOMATED Collected: 09/15/2018 Status: F Source: [place] 12:05 PM [facility] REPOSITORY TYPE CODE TESTS RESULT OUT OF RANGE REFERENCE UNITS LAB L100.1000 4.4-11.0 K/mm3 Normal WBC 9.3 LAB L100.1200 4.2-5.4 M/mm3 Normal RBC 4.58 LAB L100.1300 12.0-15.0 g/dl Normal HGB 13.1 LAB L100.1400 37-47 % Normal HCT 41.1 LAB L100.1500 81-99 fL Normal MCV 89.7 LAB L100.1600 27.0-32.0 pg Normal MCH 28.6 LAB L100.1700 32-36 g/gl Low MCHC 31.9 LAB L100.1810 11.6-14.6 % High RDW CV 16.1 LAB L100.1820 35.1-43.9 fl High RDW SD 52.2 LAB L100.1900 150-450 K/mm3 Normal PLT 288 LAB L100.2000 6.2-12.0 fl Normal MPV 9.7 LAB L100.2100 47-70 % High NEUT% 78.8 LAB L100.2200 19-41 % Low LY% 9.5 LAB L100.2300 0-10 % High MONO% 10.1 LAB L100.2400 0-5 % Normal EO% 1.2 LAB L100.2500 0-1 % Normal BASO% 0.3 LAB L100.2550 0.0-0.9 % Normal IM GRAN % 0.100 Result Comment: IG% - Immature Granulocytes (promyelocytes, myelocytes and metamyelocytes) > 1% indicates that a LEFT SHIFT is Present. LAB L100.2620 2.0-7.7 X10 3/uL Normal Absolute Neut 7.3 LAB L100.2720 0.83-4.51 X10 3/ul Normal Absolute Lymph 0.89 Performed By: #### L100.0100 #### [facility] [address] [place], [place], [address] PROTHROMBIN TIME W/INR Collected: 09/15/2018 Status: F Source: [place] 12:05 PM [facility] REPOSITORY TYPE CODE TESTS RESULT OUT OF RANGE REFERENCE UNITS LAB L300.4150 11.7-14.9 SECONDS Normal PROTIME 14.5 LAB L300.4200 Normal INR 1.1 Performed By: #### L300.3900 #### [facility] [address], [address] BASIC METABOLIC Collected: 09/15/2018 Status: F Source: [place] PROFILE (BMP) 12:05 PM [facility] REPOSITORY TYPE CODE TESTS RESULT OUT OF RANGE REFERENCE UNITS LAB L501.0100 74-106 mg/dL High GLU 131 Result Comment: Fasting Glucose result greater than or equal to 126 mg/dL suggests DIABETES MELLITUS per A.D.A. criteria. Please note revised GLUCOSE reference range effective 2017. LAB L501.1000 7-18 mg/dL High BUN 22 LAB L501.1100 0.55-1.02 mg/dL High CREAT,SERUM 1.78 Result Comment: The validity of the calculated GFR AND GFRAA in patients over 70 years has not been determined. Clinical correlation is essential. LAB L501.1110 >60 mL/min Low EST GFR 29 Result Comment: Non- GFR Calc LAB L501.1115 >60 mL/min Low EST GFR - AA 35 Result Comment: GFR Calc LAB L501.1255 ml/min Normal Estimated CRCL 23.60 LAB L501.1300 10-20 RATIO Normal BUN/CRE 12.4 LAB L501.2200 8.5-10 mg/dL Normal .1 CA 8.7 LAB L501.5300 136-14 mmol/L Normal 5 NA 144 LAB L501.5600 3.5-5. mmol/L Normal 1 K 3.9 LAB L501.5900 98-107 mmol/L High CL 109 LAB L501.6100 21.0-3 mmol/L Normal 2.0 CO2 25.0 LAB L501.6200 5-15 Normal GAP 10 Performed By: #### L500.2500, L501.4010 #### [facility] [address] [place], [address] TROPONIN-I Collected: 09/15/2018 Status: F Source: [place] 12:05 PM [facility] REPOSITORY TYPE CODE TESTS RESULT OUT OF RANGE REFERENCE UNITS LAB L501.4010 <0.045 ng/mL Normal 0.038 TROPONIN-I Result Comment: TROPONIN-I EXPECTED VALUES <0.045 Negative 0.045 - 0.590 Consistent with Cardiac Damage > OR = 0.600 Critical Value Not every elevated troponin is indicative of OR. These values should be used with clinical judgement in examining the patient's clinical picture for diagnosis. To establish a diagnosis of OR versus myocardial injury, there must be a demonstrated rise and/or fall in the troponin values, in addition to ischemic symptoms, EKG changes, new regional wall motion abnormality, and/or angiographical evidence. PLEASE NOTE: REFERENCE RANGES EDITED 18 Performed By: #### L500.2500, L501.4010 #### [facility] [address] [place], [address] BNP,B-TYPE NATRIURETIC Collected: 09/15/2018 Status: F Source: [place] PEPTIDE 12:05 PM [facility] REPOSITORY TYPE CODE TESTS RESULT OUT OF RANGE REFERENCE UNITS LAB L503.6620 0-100 pg/mL High B-TYPE 618.3 KAVIN PEP Performed By: #### L503.6620 #### [facility] [address] [place], [address] CHEST PA AND LATERAL Observed: 09/15/2018 Status: F Source: [place] 11:38 AM [facility] REPOSITORY [facility] Imaging Services [address] [place] [address] Chest PA and Lateral MR#: [id number] Acct: [id number] Name: MILAGROS STEVENSON Rep #: [id number] : 1935 F 82 From: Alexis Millan MD PCP: Poli Mendieta MD Status: REG ER Study: Chest PA and Lateral Date of Exam: 09/15/18 Exam# [id number] Ordering Dr: Dario Roy MD STUDY: X-RAY CHEST REASON FOR EXAM: Female, 82 years old. Shortness of breath. TECHNIQUE: PA and lateral views. COMPARISON: 08/18/2018. FINDINGS: Increased prominence of the interstitial lung markings. This may be due to mild pulmonary interstitial edema. Suspicious small bilateral pleural fluid. Cardiomegaly. Normal mediastinum and awilda. Mild pulmonary vascular congestion. Normal visualized aortic arch and descending thoracic aorta. Lateral marginal spurring along the thoracic spine. Normal visualized ribs, clavicles, and shoulders. There is no demonstrated abnormality of the visualized soft tissue structures of the upper abdomen. RAD/Chest PA and Lateral IMPRESSION: Suspicious mild CHF when compared to 08/18/2018. Electronically Signed: Alexis Millan MD at 12:55 EST , Service support , CC: Dario Roy MD; Poli Mendieta MD Chiropractor Sole Practitioner: Signed RFP Collected: 09/10/2018 Status: F Source: [facility] [employer] 11:58 AM [facility] REPOSITORY TYPE CODE TESTS RESULT OUT OF REFERENCE UNITS RANGE LAB GLU(LOINC) 83-110 mg/dL Glucose Level 103 LAB NA(LOINC) 136-145 mmol/L Sodium Level 143 LAB K(LOINC) 3.5-5.1 mmol/L Potassium Level 4.4 LAB CL(LOINC) 98-107 mmol/L Chloride 105 LAB CO2(LOINC) 23-31 mmol/L CO2 27 LAB EBAL(LOINC mEq/L ) Electrolyte Balance 11.0 LAB BUN(LOINC) 7-18 mg/dL BUN High 30 LAB CRE(LOINC) 0.55-1.02 mg/dL Creatinine High Lvl (s) 1.47 LAB BC(LOINC) 7-27 ratio BUN/Creatinine 20 Ratio LAB CA(LOINC) 8.4-10.2 mg/dL Calcium Lvl 9.2 LAB PHOS(LOINC 2.3-4.1 mg/dL ) Phosphorus 3.7 LAB ALB(LOINC) 3.4-4.8 G/dL Low Albumin Level 3.2 Performed By: #### RFP, GFR #### [place] [address] .GFR Collected: 09/10/2018 Status: F Source: [facility] 11:58 AM [facility] REPOSITORY TYPE CODE TESTS RESULT OUT OF REFERENCE UNITS RANGE LAB GFRAA(LOINC ml/min/1.73 ) sqm GFR 41 [place] Result Comment: GFR Population mean for , Non- Americans Ages 20-29 = 116 mL/min/1.73 sq.m. Ages 30-39 = 107 mL/min/1.73 sq.m. Ages 40-49 = 99 mL/min/1.73 sq.m. Ages 50-59 = 93 mL/min/1.73 sq.m. Ages 60-69 = 85 mL/min/1.73 sq.m. Ages 70+ = 75 mL/min/1.73 sq.m. Chronic Kidney Disease: Less than 60 mL/min/1.73 square meters End Stage Renal Disease: Less than 15 mL/min/1.73 square meters LAB GFRNO(LOINC) ml/min/1.73sqm GFR Non- 34 Result Comment: GFR Population mean for , Non- Americans Ages 20-29 = 116 mL/min/1.73 sq.m. Ages 30-39 = 107 mL/min/1.73 sq.m. Ages 40-49 = 99 mL/min/1.73 sq.m. Ages 50-59 = 93 mL/min/1.73 sq.m. Ages 60-69 = 85 mL/min/1.73 sq.m. Ages 70+ = 75 mL/min/1.73 sq.m. Chronic Kidney Disease: Less than 60 mL/min/1.73 square meters End Stage Renal Disease: Less than 15 mL/min/1.73 square meters Performed By: #### RFP, GFR #### [place] [address] BMP Collected: 09/01/2018 Status: F Source: [facility] 10:58 AM [facility] REPOSITORY TYPE CODE TESTS RESULT OUT OF REFERENCE UNITS RANGE LAB GLU(LOINC) 83-110 mg/dL Glucose High Level 128 LAB NA(LOINC) 136-145 mmol/L Sodium Level 145 LAB K(LOINC) 3.5-5.1 mmol/L Potassium Level 4.5 LAB CL(LOINC) 98-107 mmol/L Chloride 105 LAB CO2(LOINC) 23-31 mmol/L CO2 29 LAB EBAL(LOINC mEq/L ) Electrolyte Balance 11.0 LAB BUN(LOINC) 7-18 mg/dL BUN High 25 LAB CRE(LOINC) 0.55-1.02 mg/dL Creatinine High Lvl (s) 1.47 LAB BC(LOINC) 7-27 ratio BUN/Creatinine 17 Ratio LAB CA(LOINC) 8.4-10.2 mg/dL Calcium Lvl 9.1 Performed By: #### BMP, GFR #### [place] [address] .GFR Collected: 09/01/2018 Status: F Source: [facility] 10:58 [facility] REPOSITORY TYPE CODE TESTS RESULT OUT OF REFERENCE UNITS RANGE LAB GFRAA(LOINC ml/min/1.73 ) sqm GFR 41 [place] Result Comment: GFR Population mean for , Non- Americans Ages 20-29 = 116 mL/min/1.73 sq.m. Ages 30-39 = 107 mL/min/1.73 sq.m. Ages 40-49 = 99 mL/min/1.73 sq.m. Ages 50-59 = 93 mL/min/1.73 sq.m. Ages 60-69 = 85 mL/min/1.73 sq.m. Ages 70+ = 75 mL/min/1.73 sq.m. Chronic Kidney Disease: Less than 60 mL/min/1.73 square meters End Stage Renal Disease: Less than 15 mL/min/1.73 square meters LAB GFRNO(LOINC) ml/min/1.73sqm GFR Non- 34 Result Comment: GFR Population mean for , Non- Americans Ages 20-29 = 116 mL/min/1.73 sq.m. Ages 30-39 = 107 mL/min/1.73 sq.m. Ages 40-49 = 99 mL/min/1.73 sq.m. Ages 50-59 = 93 mL/min/1.73 sq.m. Ages 60-69 = 85 mL/min/1.73 sq.m. Ages 70+ = 75 mL/min/1.73 sq.m. Chronic Kidney Disease: Less than 60 mL/min/1.73 square meters End Stage Renal Disease: Less than 15 mL/min/1.73 square meters Performed By: #### BMP, GFR #### [place] [address] 12 LEAD ELECTROCARDIOGRAM Observed: 08/20/2018 Status: F Source: [place] 11:05 AM [facility] REPOSITORY [facility] Cardiovascular Services [address] [place] [id number] 12 Lead EKG 08/17/18 0713 MR#: [id number] Acct: [id number] Name: MILAGROS STEVENSON Rep #: [id number] : 1935 82 From: Alistair Vidal MD Attending Dr: Antonette Brown Status: DIS IN Ordering Dr: Violeta Dowling DO Date: 08/17/18 Location: [facility] Sex: F C Admitted: 08/16/18 Test Reason : Blood Pressure : / mmHG Vent. Rate : 080 BPM Atrial Rate : 080 BPM P-R Int : 168 ms QRS Dur : 086 ms QT Int : 394 ms P-R-T Axes : 067 082 058 degrees QTc Int : 454 ms Normal sinus rhythm Normal ECG When compared with ECG of 16-AUG-2018 14:53, MANUAL COMPARISON REQUIRED, DATA IS UNCONFIRMED Confirmed by ALISTAIR VIDAL MD ([id number]), online editor SUNSHINE STODDARD ([id number]) on 08/20/2018 11:05:25 AM Referred By: Confirmed By:ALISTAIR VIDAL MD 08/20/18 1105 Date Alistair Vidal MD CC: Sarah Dowling; Antonette Brown; Poli Mendieta MD Signed 12 LEAD ELECTROCARDIOGRAM Observed: 08/20/2018 Status: F Source: [place] 10:37 AM [facility] Cardiovascular Services [address] [place] [address] 12 Lead EKG 08/16/18 1453 MR#: [id number] Acct: [id number] Name: MILAGROS STEVENSON Rep #: [id number] : 1935 82 From: Alistair Vidal MD Attending Dr: Antonette Brown Status: DIS IN Ordering Dr: Claudia De León MD Date: 08/16/18 Location: [facility] Sex: F C Admitted: 08/16/18 Test Reason : SOB Blood Pressure : / mmHG Vent. Rate : 075 BPM Atrial Rate : 075 BPM P-R Int : 186 ms QRS Dur : 082 ms QT Int : 380 ms P-R-T Axes : 063 084 052 degrees QTc Int : 424 ms Normal sinus rhythm Normal ECG Confirmed by CLIVE SHELDON, ALISTAIR ([id number]), online editor SUNSHINE STODDARD ([id number]) on 08/20/2018 10:37:33 AM Referred By: LD Confirmed By:ALISTAIR VIDAL MD 08/20/18 1037 Date Alistair Vidal MD CC: Antonette Brown; Claudia De León MD; Poli Mendieta MD Signed DISCHARGE SUMMARY Observed: 08/19/2018 Status: F Source: [place] 12:08 PM [facility] Medical Records Department [address] [place] [address] Discharge Summary 08/19/18 1200 MR#: [id number] Acct: [id number] Name: MILAGROS STEVENSON Rep #: [id number] : 1935 82 From: Antonette Brown MD PCP: Poli Mendieta MD Status: DIS IN Y Location: [place] [id number] Discharge Date and Diagnosis Date of Admission: 08/16/18 Date of Discharge: 08/19/18 - Primary Discharge Diagnosis #1 acute diastolic CHF. #2 acute kidney injury on top of stage III chronic kidney disease. #3 uncontrolled hypertension. #4 acute gouty arthritis of the left foot. - Secondary Discharge Diagnosis Chronic Problems (Last Updated 08/17/18 @ 13:56 by Antonette Brown MD) Chronic respiratory failure with hypoxia (Chronic) Chronic renal failure, stage 3 (moderate) (Chronic) 3-4 Hormone replacement therapy (Chronic) Pulmonary hypertension (Chronic) PA pressure 57 in November 2017 Daytime hypersomnia (Chronic) Obesity, morbid, BMI 40.0-49.9 (Chronic) Gout (Chronic) Hypertension (Chronic) History of TIA (transient ischemic attack) (Chronic) 1998 History of kidney cancer (Chronic) S/P nephrectomy Hospital Course and Treatment Imaging Results: Clinical Impression(s) from Imaging Studies Chest X-Ray 08/16/18 15:02 IMPRESSION: Diffuse increased interstitial markings suspicious for either edema and/or atypical infiltrates superimposed on underlying chronic lung disease. There are bilateral lower lobe opacities left greater than right which suspicious for effusions and atelectasis. Underlying infection is not excluded. Mild cardiomegaly. Electronically Signed: Zonia Foreman MD at 15:43 EST Tel , Service support , Renal Ultrasound 08/17/18 05:55 IMPRESSION: Normal ultrasound of the left kidney and urinary bladder. Status post right nephrectomy. Electronically Signed: Zonia Foreman MD at 15:37 EST Tel , Service support , Chest X-Ray 08/18/18 05:55 IMPRESSION: Improved aeration of the left lung base as well as improved CHF. Changes persist. Follow-up is recommended. Electronically Signed: Terrell Solano MD at 10:01 EST Tel [phone], Service support , Dr. Bone, nephrology. Operations: None Procedures: None Summary of Care Provided: Patient seen and examined on the discharge and appeared to be stable to be discharged home. She has no more symptoms of shortness of breath. She is feeling better. Left foot pain improved. Her vital signs are stable. The patient is a 82 year old F presented to the ED because of shortness of breath and dizziness, found to have findings consistent with acute diastolic CHF and acute kidney injury on top of stage III chronic kidney disease. Her chest x-ray showed findings consistent with interstitial pulmonary vascular congestion. Her BNP was elevated at 1349. She had 2D echocardiogram done on November, that showed ejection fraction of 60%, moderate pulmonary hypertension and mild stage I diastolic dysfunction. Patient was treated with IV Lasix and she was started on hydralazine because of uncontrolled hypertension. She was not on MOISES inhibitors because of chronic kidney disease. She was found to have acute kidney injury on top of stage III chronic kidney disease. Her baseline creatinine has been around 1.4 mg/dL and on admission, her creatinine was 1.80 which is up from her baseline. Nephrology consulted and recommended to keep patient on oral Lasix. Renal ultrasound performed and revealed normal left kidney, status post right nephrectomy which was done for renal cell carcinoma years ago. During this hospital stay, patient developed left foot pain which she is attributed to acute gouty arthritis. She was started on a prednisone and the symptoms improved. With above-mentioned treatment, patient symptoms improved, shortness of breath improved, we were able to wean her down of oxygen to 3 L although she was on 4 L at home, continued on prednisone for acute gouty arthritis of the left foot. Because of uncontrolled hypertension, she was started on hydralazine 3 times daily. Patient discharged home in a stable medical condition, discharged on prednisone 40 mg daily for 4 days more for acute gout of the left foot, started on hydralazine 3 times daily and Lasix 40 mg p.o. daily, continued on felodipine and her other home medications without any changes, order given to repeat BMP in 1 week, plan to follow-up with PCP in 1 week, follow-up with nephrology in 2 weeks. - Physical Exam General: Alert, Cooperative, No apparent distress HEENT: Atraumatic, PERRLA, EOMI, Normocephalic Oral: Moist Mucosa, No Gingival or Mucosal Lesions/ Ulcerations Neck: Supple, No JVD, Negative Carotid Bruits, Trachea Midline, Thyroid Normal Size and Texture Lungs: Clear to auscultation, No rhonchi, No wheeze, No rales, Diminished Cardiovascular: Regular rate, Regular Rhythm, Normal S1, Normal S2 Abdomen: Bowel Sounds Present, Soft, Non Tender, Non-Distended, No Hepato-splenomegaly Extremities: No clubbing, No cyanosis, No edema Skin: No rashes, No breakdown Lymphatic: No Cervical, Supraclavicular, or Inguinal Adenopathy Neurological: Cranial nerves II-XII grossly intact, Neuro grossly intact Psych/Mental Status: Normal Affect, Appropriate Vital Signs Temp Pulse Resp BP Pulse Ox 98.0 F 98 18 159/76 H 95 08/19/18 11:31 08/19/18 11:31 08/19/18 11:31 08/19/18 11:31 08/19/18 11:31 Oxygen Flow Rate (L/min) 3 Oxygen Delivery Method Room Air Weight: 258 lb 9.636 oz Body Mass Index (BMI) 41.7 Intake and Output for Last 24 Hours Intake Total 530 / 530 1040 / 1040 120 / 120 Output Total 2700 / 2700 2100 / 2100 200 / 200 Balance -2170 / -2170 -1060 / -1060 -80 / -80 Laboratory Tests Past 24 Hrs Sodium 146 H Potassium 4.4 Chloride 111 H Carbon Dioxide 27.0 Anion Gap 8 Discharge Activity: Return to Normal Activity Weight Bearing Status: Weight bearing as tolerated Call your doctor if you observe: Fever of 101 or Higher, Shortness of breath, Dizziness, Fainting spells, Chest pain, Increased palpitations (irregular heartbeat), Uncontrolled pain Home Medications: Medications to take at Discharge Estrogens, Conjugated [Premarin] 0.3 mg PO DAILY 04/04/15 MedroxyPROGESTERone [Provera] 5 mg PO DAILY 05/18/15 Aspirin 325 mg PO DAILY@0800 04/12/18 Felodipine [Plendil] 10 mg PO DAILY 08/16/18 Umeclidinium Brm/Vilanterol Tr [Anoro Ellipta 62.5-25 Mcg INH] 1 puff INHALATION DAILY 08/16/18 Furosemide [Lasix] 40 mg PO DAILY #30 tablet 08/19/18 hydrALAZINE [Apresoline] 25 mg PO TID #90 tablet 08/19/18 predniSONE tablet 40 mg PO DAILY@0800 #8 tablet 08/19/18 Following Prescrptions Were Given to Patient: Furosemide [Lasix] 40 mg PO DAILY #30 tablet predniSONE tablet 40 mg PO DAILY@0800 #8 tablet hydrALAZINE [Apresoline] 25 mg PO TID #90 tablet Other Amb Orders: Basic Metabolic Profile (BMP) Time Frame: 1 Week, Location: Laboratory Primary Care Physician: Poli Mendieta MD [Primary Care Provider] - Please follow up with your Primary Care Physician in: 1 week. Please Follow Up With: Ferdinand Aleman MD When: 2 weeks. Please Follow Up With: Poli Mendieta MD Minutes spent on discharge:: 32 Patient Condition:: Stable Medical Necessity - Tobacco Use Smoking Status: Former smoker Tobacco Use: Cigarettes Meaningful Use Info Meaningful Use Diagnoses (Choose all that apply): CHF - CHF MOISES/ARB ordered at discharge?: No Reason MOISES/ARB not ordered?: Worsening renal function Documented LVEF (%): 60 Code Visit Inpatient E AND M: [id number] Disch Hosp 08/19/18 1208 <Electronically signed by Antonette Brown MD> Date Antonette Brown MD Cosigner Signature (if applicable): Date CC: Antonette Brown; Gamaliel Bone M.D.; Poli Mendieta MD Signed DISCHARGE INSTRUCTION Observed: 08/19/2018 Status: F Source: [place] 8:00 AM [facility] REPOSITORY [facility] Medical Records Department [address] [place] [address] Instructions for Home/Discharge Instructions 08/19/18 0759 MR#: [id number] Acct: [id number] Name: MILAGROS STEVENSON Rep #: [id number] : 1935 82 From: Antonette Brown MD PCP: Poli Mendieta MD Status: ADM IN - Discharge Diagnoses Current Active Problems: Current Active and Chronic Problems (Last Updated 08/17/18 @ 13:56 by Antonette Brown MD) PEACE (acute kidney injury) (Acute) Acute and chronic respiratory failure with hypoxia (Acute) Acute diastolic (congestive) heart failure (Acute) Chronic renal failure, stage 3 (moderate) (Chronic) 3-4 Hormone replacement therapy (Chronic) Pulmonary hypertension (Chronic) PA pressure 57 in November 2017 You will use the following diet at home:: Cardiac Your food should be the consistency of: Regular Discharge Activity: Return to Normal Activity Weight Bearing Status: Weight bearing as tolerated Call your doctor if you observe: Fever of 101 or Higher, Shortness of breath, Dizziness, Fainting spells, Chest pain, Increased palpitations (irregular heartbeat), Uncontrolled pain Allergies/Adverse Reactions: Allergies clindamycin [From Cleocin] Allergy (Verified 04/11/18 20:07) Unknown oxycodone HCl [From OxyContin] Allergy (Verified 04/11/18 20:07) Anaphylaxis Sulfa (Sulfonamide Antibiotics) Allergy (Verified 04/11/18 20:07) Anaphylaxis vancomycin Allergy (Verified 04/11/18 20:07) Hives guaifenesin [From Entex LA] Adverse Reaction (Verified 04/11/18 20:07) Unknown phenylephrine [From Entex LA] Adverse Reaction (Verified 04/11/18 20:07) Unknown phenylpropanolamine [From Entex LA] Adverse Reaction (Verified 04/11/18 20:07) Unknown BETA BLOCKERS Adverse Reaction (Uncoded 04/11/18 20:07) Unknown Medications to take at Discharge Estrogens, Conjugated [Premarin] 0.3 mg PO DAILY 04/04/15 MedroxyPROGESTERone [Provera] 5 mg PO DAILY 05/18/15 Aspirin 325 mg PO DAILY@0800 04/12/18 Felodipine [Plendil] 10 mg PO DAILY 08/16/18 Umeclidinium Brm/Vilanterol Tr [Anoro Ellipta 62.5-25 Mcg INH] 1 puff INHALATION DAILY 08/16/18 Furosemide [Lasix] 40 mg PO DAILY #30 tablet 08/19/18 hydrALAZINE [Apresoline] 25 mg PO TID #90 tablet 08/19/18 predniSONE tablet 40 mg PO DAILY@0800 #8 tablet 08/19/18 The following prescriptions were given: Furosemide [Lasix] 40 mg PO DAILY #30 tablet predniSONE tablet 40 mg PO DAILY@0800 #8 tablet hydrALAZINE [Apresoline] 25 mg PO TID #90 tablet Orders to be completed after discharge: Basic Metabolic Profile (BMP) Time Frame: 1 Week, Location: Laboratory Primary Care Physician: Poli Mendieta MD [Primary Care Provider] - Please follow up with your Primary Care Physician in: 1 week. Test Results: Test results from this visit will be discussed in further detail at your follow-up appointment, if applicable. Please Follow Up With: Ferdinand Aleman MD When: 2 weeks. 08/19/18 0800 <Electronically signed by Antonette Brown MD> Date Antonette Brown MD CC: Ferdinand Aleman MD; Poli Mendieta MD BASIC METABOLIC Collected: 08/19/2018 Status: F Source: [place] PROFILE (BMP) 5:00 AM [facility] REPOSITORY TYPE CODE TESTS RESULT OUT OF RANGE REFERENCE UNITS LAB L501.0100 74-106 mg/dL High GLU 123 Result Comment: Fasting Glucose result from 100 to 125 mg/dL suggests IMPAIRED HOMEOSTASIS per A.D.A. criteria. Please note revised GLUCOSE reference range effective 2017. LAB L501.1000 7-18 mg/dL High BUN 31 LAB L501.1100 0.55-1.02 mg/dL High CREAT,SERUM 1.60 Result Comment: The validity of the calculated GFR AND GFRAA in patients over 70 years has not been determined. Clinical correlation is essential. LAB L501.1110 >60 mL/min Low EST GFR 33 Result Comment: Non- GFR Calc LAB L501.1115 >60 mL/min Low EST GFR - AA 40 Result Comment: GFR Calc LAB L501.1255 ml/min Normal Estimated CRCL 26.25 LAB L501.1300 10-20 RATIO Normal BUN/CRE 19.4 LAB L501.2200 8.5-10 mg/dL Normal .1 CA 8.6 LAB L501.5300 136-14 mmol/L High 5 NA 146 LAB L501.5600 3.5-5. mmol/L Normal 1 K 4.4 LAB L501.5900 98-107 mmol/L High CL 111 LAB L501.6100 21.0-3 mmol/L Normal 2.0 CO2 27.0 LAB L501.6200 5-15 Normal GAP 8 Performed By: #### L500.2500 #### [facility] [address] [place], [address] BASIC METABOLIC Collected: 08/18/2018 Status: F Source: [place] PROFILE (BMP) 5:35 AM [facility] REPOSITORY TYPE CODE TESTS RESULT OUT OF RANGE REFERENCE UNITS LAB L501.0100 74-106 mg/dL High GLU 148 Result Comment: Fasting Glucose result greater than or equal to 126 mg/dL suggests DIABETES MELLITUS per A.D.A. criteria. Please note revised GLUCOSE reference range effective 2017. LAB L501.1000 7-18 mg/dL High BUN 28 LAB L501.1100 0.55-1.02 mg/dL High CREAT,SERUM 1.57 Result Comment: The validity of the calculated GFR AND GFRAA in patients over 70 years has not been determined. Clinical correlation is essential. LAB L501.1110 >60 mL/min Low EST GFR 34 Result Comment: Non- GFR Calc LAB L501.1115 >60 mL/min Low EST GFR - AA 41 Result Comment: GFR Calc LAB L501.1255 ml/min Normal Estimated CRCL 26.75 LAB L501.1300 10-20 RATIO Normal BUN/CRE 17.8 LAB L501.2200 8.5-10 mg/dL Normal .1 CA 8.9 LAB L501.5300 136-14 mmol/L High 5 NA 146 LAB L501.5600 3.5-5. mmol/L Normal 1 K 4.5 LAB L501.5900 98-107 mmol/L High CL 112 LAB L501.6100 21.0-3 mmol/L Normal 2.0 CO2 24.0 LAB L501.6200 5-15 Normal GAP 10 Performed By: #### L500.2500 #### [facility] [address] [place], [address] CHEST 1 VIEW Observed: 08/18/2018 Status: F Source: [place] (PORTABLE) 12:01 AM [facility] Imaging Services [address] [place] [address] Chest 1 View (Portable) MR#: [id number] Acct: [id number] Name: MILAGROS STEVENSON Rep #: [id number] : 1935 F 82 From: Terrell Solano MD PCP: Poli Mendieta MD Status: ADM IN Study: Chest 1 View (Portable) Date of Exam: 08/18/18 Exam# [id number] Ordering Dr: Wendy Cummings [employer] STUDY: X-RAY CHEST REASON FOR EXAM: Female, 82 years old. CHF. TECHNIQUE: Single AP portable view of the chest. COMPARISON: Comparison is made with prior study dated August 16, 2018. FINDINGS: EKG records are seen. Since prior study, there has been improved aeration of the left lung base with residual pleural-parenchymal changes although this has improved. Stable blunting of the right costophrenic angle with mild residual CHF. There is moderate cardiac enlargement. Normal mediastinum and awilda. Normal visualized pulmonary arteries. There is atherosclerotic calcification of the aortic arch with tortuosity. There are diffuse degenerative changes of the visualized thoracic spine. There is degenerative osteoarthritis of the bilateral shoulders. There is no demonstrated abnormality of the visualized soft tissue structures of the upper abdomen. RAD/Chest 1 View (Portable) IMPRESSION: Improved aeration of the left lung base as well as improved CHF. Changes persist. Follow-up is recommended. Electronically Signed: Terrell Solano MD at 10:01 EST Tel [phone], Service support , CC: ZAK Cummings; Poli Mendieta MD Chiropractor Sole Practitioner: Signed URINALYSIS, COMPLETE Collected: 08/17/2018 Status: F Source: [place] 9:00 PM [facility] Order Comment: How was Urine Obtained? CLEAN CATCH TYPE CODE TESTS RESULT OUT OF RANGE REFERENCE UNITS LAB L400.3000 Yellow COLOR Normal Yellow LAB L400.3050 Clear Normal CLARITY Clear LAB L400.3200 Normal mg/dl Normal GLUCOSE, UR Normal LAB L400.3300 Negative mg/dL Normal BILIRUBIN URINE Negative LAB L400.3400 Negative mg/dl Normal KETONE UR Negative LAB L400.3465 1.002-1.030 Normal SP.GR. DIPSTX 1.010 LAB L400.3550 5.0 - 8.0 pH UR Normal 6.0 LAB L400.3600 Negative mg/dl High PROT 30 DIPSTX LAB L400.3700 Normal mg/dl Normal UROBILI Normal LAB L400.3750 Negative Normal NITRITE UR Negative LAB L400.3780 Negative /ul Normal OCCULT BLOOD-UR Negative LAB L400.3800 Negative /ul LEUK Normal ESTERASE Negative LAB L400.4050 0-5 /hpf WBC 0 Normal SEEN LAB L400.4100 0-5 /hpf 0 Normal RBC-UA SEEN LAB L400.4150 5-10 /hpf SQUAM Normal EPI 0-5 SEEN LAB L400.4300 None Seen /hpf 0 Normal BACTERIA SEEN LAB L400.4350 <or=2+ /hpf 0 Normal MUCUS, URINE SEEN Performed By: #### L400.0001 #### [facility] [address] [place], [address] CONSULTATION Observed: 08/17/2018 Status: F Source: [place] 4:54 PM [facility] Medical Records Department [address] [place] [address] Consultation 08/17/18 1648 MR#: [id number] Acct: [id number] Name: STEVENSONMILAGROS Jaycee Rep #: [id number] : 1935 82 From: Bhupendra Bone MD PCP: Poli Mendieta MD Status: ADM IN Y Location: [place] [address] Problem List (1) PEACE (acute kidney injury) Status: Acute (2) Chronic renal failure, stage 3 (moderate) Status: Chronic Comment: 3-4 Consultation - Renal 08/17/18 PCP/ Referring MD: Requesting physician: Dr Dowling Primary care physician: Poli Mendieta MD Reason for Consultation:: PEACE - History of Present Illness History of Present Illness: The patient is a 82 year old F presented to hospital with dyspnea, oliguria and PEACE. renal consulted for PEACE complaints over the last one week - discolored urine, dyspnea, BP upto 190/100. no new med. No NSAIDs. no kidney stones prior nephrectomy received IV lasix for fluid overload since admission, now on hold - Allergies Allergies: Allergies clindamycin [From Cleocin] Allergy (Verified 04/11/18 20:07) Unknown oxycodone HCl [From OxyContin] Allergy (Verified 04/11/18 20:07) Anaphylaxis Sulfa (Sulfonamide Antibiotics) Allergy (Verified 04/11/18 20:07) Anaphylaxis vancomycin Allergy (Verified 04/11/18 20:07) Hives guaifenesin [From Entex LA] Adverse Reaction (Verified 04/11/18 20:07) Unknown phenylephrine [From Entex LA] Adverse Reaction (Verified 04/11/18 20:07) Unknown phenylpropanolamine [From Entex LA] Adverse Reaction (Verified 04/11/18 20:07) Unknown BETA BLOCKERS Adverse Reaction (Uncoded 04/11/18 20:07) Unknown - Current Medications Current Medications: Current Medications Acetaminophen (Tylenol) 650 mg PO Q6H PRN PRN PRN Reason: Mild Pain (scale 0-3)/T>100.7 Albuterol/Ipratropium (Duoneb) 3 ml INHALATION Q6HWA.RT [facility] Last Admin: 08/17/18 13:19 Dose: Not Given Amlodipine Besylate (Norvasc) 10 mg PO DAILY [facility] Aspirin (Aspirin) 325 mg PO DAILY@0800 [facility] Last Admin: 08/17/18 08:46 Dose: 325 mg Heparin Sodium (Porcine) (Heparin Na) 5,000 unit SC Q8 [facility] Last Admin: 08/17/18 14:20 Dose: 5,000 unit Hydralazine HCl (Apresoline) 25 mg PO TID [facility] Last Admin: 08/17/18 14:20 Dose: 25 mg Ondansetron HCl (Zofran) 4 mg IV Q8H PRN PRN PRN Reason: Nausea Sodium Chloride () 5 - 15 ml IV UD PRN PRN Reason: SALINE FLUSH Last Admin: 08/16/18 18:31 Dose: 10 ml - Past Medical History Past Medical History (Chronic Problems): Chronic Problems (Last Updated 08/17/18 @ 13:56 by Antonette Brown MD) Chronic respiratory failure with hypoxia (Chronic) Chronic renal failure, stage 3 (moderate) (Chronic) 3-4 Hormone replacement therapy (Chronic) Pulmonary hypertension (Chronic) PA pressure 57 in November 2017 Daytime hypersomnia (Chronic) Obesity, morbid, BMI 40.0-49.9 (Chronic) Gout (Chronic) Hypertension (Chronic) History of TIA (transient ischemic attack) (Chronic) 1998 History of kidney cancer (Chronic) S/P nephrectomy - Past Surgical History Surgical History: - - Tonsillectomy, appendectomy, cholecystectomy, bilateral shoulder rotator cuff repair, right elbow fracture with surgery with pin in place, bilateral total knee replacement. Renal cell carcinoma, Surgery for SBO, Single salpingectomy and oophorectomy for ectopic . - Social History Smoking Status: Former smoker Alcohol: Rare Drugs: None - Family History Paternal Family History: Family History (Last Reviewed 08/16/18 @ 18:39 by Violeta Dowling DO) Mother CAD (coronary artery disease) Father Colon cancer History Items: Cancer - Pancreatic CA, age 3838 years old., Diabetes, Heart Disease, Hypertension Maternal Family History: Family History (Last Reviewed 08/16/18 @ 18:39 by Violeta Dowling DO) Mother CAD (coronary artery disease) Father Colon cancer History Items: Heart Disease, Hypertension Review of Systems Constitutional: Denies: Chills, Fever, Weight Change HEENT: Denies: Head Aches, Sinus Congestion, Sinus Drainage Cardiovascular: Denies: Chest Pain, Palpitations Respiratory: Denies: Cough, Shortness of breath at rest, Sputum production Gastrointestinal: Denies: Abdominal Pain, Nausea, Vomiting Genitourinary: Denies: Dysuria Musculoskeletal: Denies: Joint Pain, Joint Tenderness Skin: Denies: Rash, Wounds Neurological: Denies: Numbness, Tingling, Focal weakness Psychiatric: Denies: Anxiety, Depression, Homicidal Ideations, Suicidal Ideations Hematologic/ Lymphatic: Denies: Easy Bruising, Easy Bleeding Patient Problems: Active and Suspected Problems (Last Updated 08/17/18 @ 13:56 by Antonette Brown MD) PEACE (acute kidney injury) (Acute) Acute and chronic respiratory failure with hypoxia (Acute) Acute diastolic (congestive) heart failure (Acute) - Physical Exam General: Alert, Oriented x3, Cooperative HEENT: Atraumatic, PERRLA, EOMI, Normocephalic Neck: Supple, No JVD, Negative Carotid Bruits Lungs: Clear to auscultation, Normal air movement Cardiovascular: Regular rate, No murmurs Abdomen: Bowel Sounds Present, Soft, Non Tender Extremities: No edema, Capillary Refill Less than 3 Seconds Skin: No rashes, No breakdown Musculoskeletal: No Tenderness to Palpation of Joints or Extremities Neurological: Cranial nerves II-XII grossly intact Psych/Mental Status: Normal Affect, Appropriate Vital Signs Temp Pulse Resp BP Pulse Ox 98.4 F 82 19 H 134/78 H 96 08/17/18 15:40 08/17/18 15:40 08/17/18 15:40 08/17/18 15:40 08/17/18 15:40 Oxygen Flow Rate (L/min) 3 Oxygen Delivery Method Nasal Cannula Weight: 116.1 kg Body Mass Index (BMI) 41.7 Orthostatic Vital Signs Start: 08/17/18 14:13 Freq: q24h Status: Active Protocol: Activity Type Activity Date Activity User E-Sign Co-Sign Detail Recorded Client Recorded Date Recorded By Document 08/17/18 14:32 ANG [id number] 08/17/18 14:33 ANG Orthostatic Vitals Standing -Blood Pressure (90/60-120/80 mm Hg) 147/70 H -Pulse Rate (60-100 beats/min) 91 Intake and Output for Last 24 Hours Intake Total 667 / 667 290 / 290 Output Total 1050 / 1050 1300 / 1300 Balance -383 / -383 -1010 / -1010 Laboratory Tests Past 24 Hrs Sodium 146 H Potassium 4.1 Chloride 110 H Carbon Dioxide 26.0 Assessment/Plan All Active Problems (Last Updated 08/17/18 @ 13:56 by Antonette Brown MD) PEACE (acute kidney injury) (Acute) Acute and chronic respiratory failure with hypoxia (Acute) Acute diastolic (congestive) heart failure (Acute) PEACE CKD stage 3 CKD 3 at baseline with creatinine around 1.4 or so. prior nephrectomy. renal USG does not show any hydro. no new meds. No NSAIDs. Bp is ok now. will check Urinalysis to see if any proteinuria present. no changes made for today CHF. volume status looks ok now will arrange follow up in [place] office after dc 08/17/18 6394 <Electronically signed by Bhupendra Bone MD> Date Bhupendra Bone MD Cosigner Signature (if applicable): Date CC: Ferdinand Aleman MD; Poli Mendieta MD Signed COMPREHENSIVE METABOLIC Collected: 08/17/2018 Status: F Source: [facility] 6:25 AM [facility] TYPE CODE TESTS RESULT OUT OF RANGE REFERENCE UNITS LAB L501.0100 74-106 mg/dL Normal GLU 94 Result Comment: Please note revised GLUCOSE reference range effective 2017. LAB L501.1000 7-18 mg/dL High BUN 31 LAB L501.1100 0.55-1.02 mg/dL High CREAT,SERUM 1.80 Result Comment: The validity of the calculated GFR AND GFRAA in patients over 70 years has not been determined. Clinical correlation is essential. LAB L501.1110 >60 mL/min Low EST GFR 29 Result Comment: Non- GFR Calc LAB L501.1115 >60 mL/min Low EST GFR - AA 35 Result Comment: GFR Calc LAB L501.1255 ml/min Normal Estimated CRCL 23.34 LAB L501.1300 10-20 RATIO Normal BUN/CRE 17.2 LAB L501.1500 6.4-8. g/dL Normal 2 T PROT 6.4 LAB L501.1800 3.2-5. g/dL Low 0 ALB 3.0 LAB L501.1950 2.2-4. g/dL Normal 2 GLOB 3.4 LAB L501.2000 0.9-2. RATIO Normal 4 A/G 0.9 LAB L501.2200 8.5-10 mg/dL Normal .1 CA 9.0 LAB L501.4100 15-37 U/L Normal AST 31 LAB L501.4305 45-117 U/L Normal ALK P 64 LAB L501.4405 13-56 U/L Normal ALT 34 LAB L501.4600 0.20-1 mg/dL Normal .00 T BILI 0.70 LAB L501.5300 136-14 mmol/L High 5 NA 146 LAB L501.5600 3.5-5. mmol/L Normal 1 K 4.1 LAB L501.5900 98-107 mmol/L High CL 110 LAB L501.6100 21.0-3 mmol/L Normal 2.0 CO2 26.0 LAB L501.6200 5-15 Normal GAP 10 Performed By: #### L500.4050, L500.4100, L501.2300, L501.5200 #### [facility] [address] [place], [place], [address] LIPID PROFILE Collected: 08/17/2018 Status: F Source: [place] 6:25 AM [facility] TYPE CODE TESTS RESULT OUT OF RANGE REFERENCE UNITS LAB L501.4900 200 mg/dL Normal CHOL 91 Result Comment: <200 mg/dL Desirable 200-240 mg/dL Borderline >240 mg/dL High Risk LAB L501.5000 mg/dL Normal TRIG 63 Result Comment: The drugs N-Acetylcysteine and Metamizole may falsely depress this assay. Serum Triglycerides Reference Interval Normal <150 mg/dL Borderline high 150 - 199 mg/dL High 200 - 499 mg/dL Very High > or = 500 mg/dL LAB L501.6400 mg/dL Normal HDL 42 Result Comment: The drugs N-Acetylcysteine and Metamizole may falsely depress this assay. Reference Range HDL <40 mg/dL Low HDL Cholesterol HDL >or= 60 mg/dL High HDL Cholesterol LAB L501.6500 0-130 mg/dL Normal LDL 36 LAB L501.6600 5-40 mg/dL Normal VLDL 13 Performed By: #### L500.4050, L500.4100, L501.2300, L501.5200 #### [facility] [address] [place], [address] PHOSPHORUS Collected: 08/17/2018 Status: F Source: [place] 6:25 AM [facility] TYPE CODE TESTS RESULT OUT OF RANGE REFERENCE UNITS LAB L501.2300 2.5-4.9 mg/dL Normal PHOS 3.1 Performed By: #### L500.4050, L500.4100, L501.2300, L501.5200 #### [facility] [address] [place], [address] MAGNESIUM Collected: 08/17/2018 Status: F Source: [place] 6:25 AM [facility] TYPE CODE TESTS RESULT OUT OF RANGE REFERENCE UNITS LAB L501.5200 1.6-2.6 mg/dL Normal MG 1.8 Performed By: #### L500.4050, L500.4100, L501.2300, L501.5200 #### [facility] [address] [place], [place], [address] TROPONIN-I Collected: 08/17/2018 Status: F Source: [place] 1:00 AM [facility] Order Comment: 'TROP' Serial specimen #1, #2 or #3: 3 DELAY IN COLLECTION/TESTING DUE TO ORDER PUT IN FOR WRONG DAY. DUE 08/16/182129 ORDERED FOR 08/17/182129. TYPE CODE TESTS RESULT OUT OF RANGE REFERENCE UNITS LAB L501.4010 <0.045 ng/mL Normal 0.036 TROPONIN-I Result Comment: TROPONIN-I EXPECTED VALUES <0.045 Negative 0.045 - 0.590 Consistent with Cardiac Damage > OR = 0.600 Critical Value Not every elevated troponin is indicative of OR. These values should be used with clinical judgement in examining the patient's clinical picture for diagnosis. To establish a diagnosis of OR versus myocardial injury, there must be a demonstrated rise and/or fall in the troponin values, in addition to ischemic symptoms, EKG changes, new regional wall motion abnormality, and/or angiographical evidence. PLEASE NOTE: REFERENCE RANGES EDITED 18 Performed By: #### L501.4010 #### [facility] [address] [place], [address] KIDNEY AND BLADDER Observed: 08/17/2018 Status: F Source: [place] 12:01 AM [facility] Imaging Services [address] [place] Kidney and Bladder MR#: [id number] Acct: [id number] Name: MILAGROS STEVENSON Rep #: [id number] : 1935 F 82 From: Zonia Foreman MD PCP: Poli Mendieta MD Status: ADM IN Study: Kidney and Bladder Date of Exam: 08/17/18 Exam# [id number] Ordering Dr: Violeta Dowling DO STUDY: RENAL ULTRASOUND - COMPLETE REASON FOR EXAM: Female, 82 years old. Renal failure history of renal cell carcinoma and nephrectomy 1994 TECHNIQUE: Ultrasound evaluation of the kidneys was performed with real-time and static blake-scale imaging. COMPARISON: CT abdomen and pelvis March 11, 2018 FINDINGS: RIGHT KIDNEY: Has been surgically removed. LEFT KIDNEY: Normal location of the left kidney, which is normal in size. The left kidney measures 10.0 x 4.0 x 5.8 cm. There is a normal cortex of the left kidney. The renal cortex measures 1.9 cm. There is no left renal mass or cyst. There are no left renal calculi. There is no left hydronephrosis. DISTAL LEFT URETER: There is non-visualization of the distal left ureter. There is no demonstrated left ureterovesical junction calculus. There is a visualized left ureteral jet. BLADDER: The distended urinary bladder has a volume of 94.4 ml. There is a normal wall thickness of the distended urinary bladder. There is no demonstrated mass within the urinary bladder. There are no demonstrated bladder calculi. US/Kidney and Bladder IMPRESSION: Normal ultrasound of the left kidney and urinary bladder. Status post right nephrectomy. Electronically Signed: Zonia Foreman MD at 15:37 EST Tel , Service support , CC: Sarah Dowling; Poli Mendieta MD Chiropractor Sole Practitioner: Signed HISTORY AND PHYSICAL Observed: 08/16/2018 Status: F Source: [place] EXAM 6:48 PM [facility] Medical Records Department [address] [place] [address] History and Physical 08/16/18 1826 MR#: [id number] Acct: [id number] Name: MILAGROS STEVENSON Rep #: [id number] : 1935 82 From: Violeta Dowling DO PCP: Poli Mendieta MD Status: ADM IN Location: [place] [address] Problem List (1) Acute diastolic (congestive) heart failure Status: Acute (2) Acute and chronic respiratory failure with hypoxia Status: Acute (3) Chronic renal failure, stage 3 (moderate) Status: Chronic Comment: 3-4 (4) Chronic respiratory failure with hypoxia Status: Chronic (5) Chest pain Status: Resolved Qualifiers: (6) Daytime hypersomnia Status: Chronic (7) Obesity, morbid, BMI 40.0-49.9 Status: Chronic (8) History of tobacco use Status: Inactive Comment: quit 1994 (9) Gout Status: Chronic Qualifiers: (10) COPD exacerbation Status: Resolved (11) Hypertension Status: Chronic Qualifiers: (12) History of TIA (transient ischemic attack) Status: Chronic Comment: 1998 (13) History of kidney cancer Status: Chronic Comment: S/P nephrectomy (14) Hormone replacement therapy Status: Chronic (15) Pulmonary hypertension Status: Acute Comment: PA pressure 57 in November 2017 History of Present Illness Date of Admission: 08/16/18 Chief Complaint: SOB and lightheadedness with nausea and decreased appetite The patient is a 82 year old F with a past medical history of hypertension, renal cell carcinoma with history of nephrectomy, chronic hormone replacement therapy, chronic renal failure stage III 4, morbid obesity, history of TIA, chronic respiratory failure with hypoxemia on home O2 and remote history of tobacco use (quit in 1994) who presented to the emergency department at [facility] on 08/16/2018 complaining of shortness of breath at rest and with exertion and lightheadedness. She tells me her urine output has been decreased lately and recent lab at her primary care physician's office showed her creatinine was increased. She complains of nausea and decreased appetite recently but states she is drinking plenty of water every day. She denies any confusion but states she has a bad taste in her mouth like urine., Vital signs presentation to the emergency room were temp 98.5, pulse rate 78, blood pressure 159/73, respiratory rate was 17 and she was 92% on 4 L nasal cannula at rest. Normally she does not require oxygen at rest but uses 4 L with exertion. White blood cell count, hemoglobin and platelets are all within normal limits. Electrolytes are unremarkable and the BUN is 29 with a creatinine of 1.63. Troponin was increased at 0.034 and the BNP was 1349.2. Chest x-ray is consistent with bilateral pleural effusions and increased pulmonary vascular congestion secondary to congestive heart failure. She had a stress test in April 2018 that was negative for ischemia and the gated nuclear ejection fraction was 57%. Echocardiogram in November 2017 showed a 60% ejection fraction with a PA pressure of 59 consistent with moderate pulmonary hypertension. There was stage I diastolic dysfunction and mild concentric left ventricular hypertrophy. She is being admitted to the hospital with acute on chronic renal failure, acute diastolic CHF and acute on chronic respiratory failure. Past Medical History Past Medical History (Chronic Problems): Chronic Problems (Last Reviewed 04/06/18 @ 10:57 by Wendy Carter) Chronic respiratory failure with hypoxia (Chronic) Chronic renal failure, stage 3 (moderate) (Chronic) 3-4 Hormone replacement therapy (Chronic) Daytime hypersomnia (Chronic) Obesity, morbid, BMI 40.0-49.9 (Chronic) Gout (Chronic) Hypoxia (Chronic) Hypertension (Chronic) History of TIA (transient ischemic attack) (Chronic) 1998 History of kidney cancer (Chronic) S/P nephrectomy CKD (chronic kidney disease) (Chronic) Medical History: Medical History (Last Reviewed 08/16/18 @ 18:39 by Violeta Dowling DO) Acute respiratory failure with hypoxia (Acute) J96.01 Obesity, morbid, BMI 40.0-49.9 (Chronic) E66.01 Gout (Chronic) M10.9 Hypoxia (Chronic) R09.02 Hypertension (Chronic) I10 History of TIA (transient ischemic attack) (Chronic) 1998 History of kidney cancer (Chronic) Z85.528 S/P nephrectomy CKD (chronic kidney disease) (Chronic) N18.9 Acute sinusitis J01.90 Biceps tendonitis M75.20 Biliary colic K80.50 Cancer of right kidney 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 Cough R05 Disorder of bone density and structure, unspecified M85.9 Gallstones K80.20 Impingement syndrome of left shoulder M75.42 Influenza A J10.1 Left rotator cuff tear M75.102 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 Skin neoplasm D49.2 Strain of muscle(s) and tendon(s) of the rotator cuff of left shoulder, initial encounter S46.012A DJD (degenerative joint disease) M19.90 Kidney disease N28.9 Stasis dermatitis I87.2 Venous insufficiency I87.2 COPD exacerbation (Resolved) J44.1 Elbow fracture, right S42.401A History of tobacco use (Inactive) Z87.891 quit 1994 Allergies clindamycin [From Cleocin] Allergy (Verified 04/11/18 20:07) Unknown oxycodone HCl [From OxyContin] Allergy (Verified 04/11/18 20:07) Anaphylaxis Sulfa (Sulfonamide Antibiotics) Allergy (Verified 04/11/18 20:07) Anaphylaxis vancomycin Allergy (Verified 04/11/18 20:07) Hives guaifenesin [From Entex LA] Adverse Reaction (Verified 04/11/18 20:07) Unknown phenylephrine [From Entex LA] Adverse Reaction (Verified 04/11/18 20:07) Unknown phenylpropanolamine [From Entex LA] Adverse Reaction (Verified 04/11/18 20:07) Unknown BETA BLOCKERS Adverse Reaction (Uncoded 04/11/18 20:07) Unknown Home Medications: Ambulatory Orders Medication Instructions Recorded Estrogens, Conjugated [Premarin] 0.3 mg PO DAILY 04/04/15 MedroxyPROGESTERone [Provera] 5 mg PO DAILY 05/18/15 Aspirin 325 mg PO DAILY@0800 04/12/18 Felodipine [Plendil] 10 mg PO DAILY 08/16/18 Surgical History: Surgical History (Last Reviewed 08/16/18 @ 18:39 by Violeta Dowling DO) H/O rotator cuff surgery Z98.890 right History of appendectomy Z90.49 age 18 History of left knee replacement Z96.652 2007 History of nephrectomy Z90.5 1995 for cancer History of total right knee replacement Z96.651 2010 Hx of cholecystectomy Z90.49 2016 Hx of removal of ovary Surgical History: - - Tonsillectomy, appendectomy, cholecystectomy, bilateral shoulder rotator cuff repair, right elbow fracture with surgery with pin in place, bilateral total knee replacement. Renal cell carcinoma, Surgery for SBO, Single salpingectomy and oophorectomy for ectopic . 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 History: ectopic Lives: Alone Smoking Status: Former smoker Tobacco Use: Cigarettes Alcohol: Rare Drugs: None - *Family History Paternal Family History: Family History (Last Reviewed 08/16/18 @ 18:39 by Violeta Dowling DO) Mother CAD (coronary artery disease) Father Colon cancer History Items: Cancer - Pancreatic CA, age 3840 years old., Diabetes, Heart Disease, Hypertension Maternal Family History: Family History (Last Reviewed 08/16/18 @ 18:39 by Violeta Dowling DO) Mother CAD (coronary artery disease) Father Colon cancer History Items: Heart Disease, Hypertension Review of Systems Constitutional: Reports: Anorexia, Weakness. Denies: Chills, Fever, Weight Change Eyes: Denies: Blurred vision, Pain HEENT: Denies: Difficulty Hearing, Difficulty Swallowing, Head Aches, Sinus Congestion, Sinus Drainage Cardiovascular: Reports: Light Headedness - with ambulation. Denies: Chest Pain, Palpitations Respiratory: Reports: Shortness of breath at rest, Shortness of breath upon exertion. Denies: Cough, Sputum production, Wheezing Gastrointestinal: Reports: Nausea. Denies: Abdominal Pain, Diarrhea, Vomiting Genitourinary: Reports: - - She complains that she has had decreased urine output recently despite drinking plenty of water. Denies: Dysuria Gynecological: Denies: Vaginal discharge Musculoskeletal: Denies: Joint Pain, Joint Tenderness Skin: Denies: Jaundice, Rash, Wounds Neurological: Denies: Difficulty swallowing, Focal weakness, Numbness, Tingling, Seizures Psychiatric: Denies: Anxiety, Depression, Homicidal Ideations, Suicidal Ideations Hematologic/ Lymphatic: Denies: Easy Bruising, Easy Bleeding, Hx of blood clot VTE Information - Inpt Only VTE Present on Admission: No VTE Mechan Device Prophylaxis: SCD's, Knee High MACRINA Hose VTE Pharm Prophylaxis ordered?: Yes Patient Problems: Active and Suspected Problems (Last Reviewed 04/06/18 @ 10:57 by Wendy Caretr) Acute diastolic (congestive) heart failure (Acute) Acute and chronic respiratory failure with hypoxia (Acute) Pulmonary hypertension (Acute) PA pressure 57 in November 2017 - Physical Exam General: Alert, Oriented x3, Cooperative, No apparent distress, Well developed, Well nourished, - - Morbidly obese HEENT: Atraumatic, PERRLA, EOMI, Normocephalic Oral: Dry Mucosa Neck: Supple, No JVD - but difficult to assess due to body habitus, Negative Carotid Bruits, No Nuchal Rigidity, Trachea Midline Lungs: Normal air movement, Rales - in the bases BL, - - not tachypneic at rest and no conversational dyspnea however she gets tachypneic and conversational dyspnea when moving around in the bed or trying to ambulate Cardiovascular: Regular rate, Regular Rhythm, Normal S1, Normal S2, No murmurs, No rub noted, No Gallop, - - Heart sounds are distant Abdomen: Bowel Sounds Present, Soft, Non Tender, Obese Extremities: No clubbing, No cyanosis, No edema, No Calf Tenderness, Diminished Peripheral Pulses Skin: No rashes, No breakdown Musculoskeletal: No Tenderness to Palpation of Joints or Extremities Neurological: Cranial nerves II-XII grossly intact, Neuro grossly intact Psych/Mental Status: Normal Affect, Appropriate Vital Signs Temp Pulse Resp BP Pulse Ox 97.7 F L 88 20 H 152/98 H 95 08/16/18 17:45 08/16/18 17:52 08/16/18 17:45 08/16/18 17:45 08/16/18 17:45 Oxygen Flow Rate (L/min) 3 Oxygen Delivery Method Nasal Cannula Weight: 258 lb 6.108 oz Body Mass Index (BMI) 41.7 Intake and Output for Last 24 Hours Intake Total 120 / 120 Output Total 150 / 150 Balance -30 / -30 Laboratory Tests Past 24 Hrs WBC 6.5 RBC 4.45 WBC RBC Hgb Hct MCV MCH MCHC RDW RDW Differential Plt Count MPV Immature Gran % (Auto) Neut % (Auto) Lymph % (Auto) Assessment/Plan All Active Problems (Last Reviewed 04/06/18 @ 10:57 by Wendy Carter) Acute diastolic (congestive) heart failure (Acute) Acute and chronic respiratory failure with hypoxia (Acute) Pulmonary hypertension (Acute) Acute respiratory failure with hypoxia (Acute) COPD exacerbation (Resolved) Chest pain (Resolved) Impressions 1. Acute on chronic renal failure with BUN increased from 1.28 in April of this year to 1.63 today 2. Acute diastolic congestive heart failure 3. Acute on chronic respiratory failure with hypoxemia requiring increased oxygen to maintain saturation greater than 90% at rest when normally she does not require oxygen 4. History of nephrectomy for renal cell carcinoma 5. Uncontrolled hypertension 6. Morbid obesity 7. History of gout 8. History of a TIA Admit to a monitored bed on TCU Weigh at admission to the floor and then daily Acccurate I AND O's Chest XRAY - done BNP Diurese with Lasix 40 mg IV x1 now [] ECHO done in April of this year-no need to repeat Recheck lab in the AM Salt restriction-2 g sodium Fluid restriction-1500 cc Dietary consult for education regarding low sodium diet Consult Dr. Streeter for renal failure Ultrasound of the kidneys and bladder Hydralazine 10 mg IV now to get better blood pressure control and start hydralazine 25 mg p.o. 3 times daily Hold estrogen and progesterone due to high risk for DVT DVT prophylaxis with heparin and SCDs Code Visit Inpatient E AND M: 63641 Subs Hosp 08/16/18 1848 <Electronically signed by Violeta Dowling DO> Date Violeta Dowling DO Cosign Signature: Date (if applicable) CC: Sarah Dowling; Poli Mendieta MD Signed PHOSPHORUS Collected: 08/16/2018 Status: F Source: [facility] 6:46 PM [facility] Order Comment: 'TROP' Serial specimen #1, #2 or #3: 2 TYPE CODE TESTS RESULT OUT OF RANGE REFERENCE UNITS LAB L501.2300 2.5-4.9 mg/dL Normal PHOS 2.8 Performed By: #### L501.2300, L501.4010, L501.5200, L501.9520 #### [facility] [address] [place], [place], [id number] TROPONIN-I Collected: 08/16/2018 Status: F Source: [place] 6:46 PM [facility] Order Comment: 'TROP' Serial specimen #1, #2 or #3: 2 TYPE CODE TESTS RESULT OUT OF RANGE REFERENCE UNITS LAB L501.4010 <0.045 ng/mL Normal 0.038 TROPONIN-I Result Comment: TROPONIN-I EXPECTED VALUES <0.045 Negative 0.045 - 0.590 Consistent with Cardiac Damage > OR = 0.600 Critical Value Not every elevated troponin is indicative of OR. These values should be used with clinical judgement in examining the patient's clinical picture for diagnosis. To establish a diagnosis of OR versus myocardial injury, there must be a demonstrated rise and/or fall in the troponin values, in addition to ischemic symptoms, EKG changes, new regional wall motion abnormality, and/or angiographical evidence. PLEASE NOTE: REFERENCE RANGES EDITED 18 Performed By: #### L501.2300, L501.4010, L501.5200, L501.9520 #### [facility] [address] [facility]. [place], [place], [id number] MAGNESIUM Collected: 08/16/2018 Status: F Source: [place] 6:46 PM [facility] Order Comment: 'TROP' Serial specimen #1, #2 or #3: 2 TYPE CODE TESTS RESULT OUT OF RANGE REFERENCE UNITS LAB L501.5200 1.6-2.6 mg/dL Normal MG 1.8 Performed By: #### L501.2300, L501.4010, L501.5200, L501.9520 #### [facility] [address] [place], [place], [id number] THYROID STIM HORMONE Collected: 08/16/2018 Status: F Source: [place] (TSH) 6:46 PM [facility] Order Comment: 'TROP' Serial specimen #1, #2 or #3: 2 TYPE CODE TESTS RESULT OUT OF RANGE REFERENCE UNITS LAB L501.9520 0.358-3.74 uIU/mL Normal TSH 3.05 Performed By: #### L501.2300, L501.4010, L501.5200, L501.9520 #### [facility] [address] [place], [address] EMERGENCY DEPARTMENT Observed: 08/16/2018 Status: F Source: [place] SUMMARY 5:24 PM [facility] Medical Records Department [address] [place] [address] Emergency Department Summary 08/16/18 1444 MR#: [id number] Acct: [id number] Name: MILAGROS STEVENSON Rep #: [id number] : 1935 82 From: Claudia De León MD PCP: Poli Mendieta MD Status: ADM [facility] - ER Visit Summary Date of Service: 08/16/18 Chief Complaint: Shortness of breath and dizziness History of Present Illness: The patient is a 82 F with history of renal cancer, status post right nephrectomy, COPD and hypertension who presents for 2 days of shortness of breath and dizziness. Patient states every time she gets up and walks a few steps, she becomes short of breath and feels like she is going to pass out. It is improved if she sits down. She has associated nausea. She denies fever, chest pain, abdominal pain, back pain, vomiting, diarrhea, urinary symptoms. 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 She states a week ago she had blood work done by her primary care doctor that showed worsening renal function. She has been referred to a urologist. Her blood pressure has been increased recently. She is a former smoker. Patient is on 4 L nasal cannula oxygen at all times at home. Physical Examination: Vital signs: afebrile, hemodynamically stable, no hypoxia on home oxygen General: well nourished, well developed, in no distress Skin: warm, dry, no rash, no pallor HEENT: normocephalic and atraumatic; PERRL, EOMI, moist mucous membranes Cardiovascular: regular rate and rhythm without murmurs, no peripheral edema, 2+ pulses all distal extremities Respiratory: No increased work of breathing, lungs show bibasilar rales Abdominal: Abdomen is soft, nontender with normoactive bowel sounds, no guarding or rebound, no masses MSK: Moves all extremities, no deformities, normal strength Neuro: Awake and alert, oriented 4. No facial droop, sensation and motor function intact and symmetric Test Results: Clinical Impression(s) from Imaging Studies Chest X-Ray 08/16/18 15:02 IMPRESSION: Diffuse increased interstitial markings suspicious for either edema and/or atypical infiltrates superimposed on underlying chronic lung disease. There are bilateral lower lobe opacities left greater than right which suspicious for effusions and atelectasis. Underlying infection is not excluded. Mild cardiomegaly. Electronically Signed: Zonia Foreman MD at 15:43 EST Tel , Service support , Abnormal Lab Results WBC 6.5 RBC 4.45 WBC RBC Hgb Hct MCV MCH MCHC RDW RDW Differential Plt Count MPV Immature Gran % (Auto) Neut % (Auto) Lymph % (Auto) Medications Given Discontinued Medications Nitroglycerin (Nitrostat) 0.4 mg SUBLINGUAL X1 ONE Stop: 08/16/18 15:48 Emergency Department Course and Treatment: Patient presents for shortness of breath and dizziness on mild exertion. Her lung exam shows bibasilar rales, with history and exam concerning for CHF. Chest x-ray was consistent with cardiomegaly and CHF. EKG showed a sinus rhythm with no ischemic changes. Labs showed no leukocytosis, anemia, did show renal insufficiency with a creatinine of 1.6. Troponin was within normal limits at 0.034. BNP significantly elevated from patient's baseline at 1349. Patient was hypertensive in the emergency department and was given a dose of sublingual nitroglycerin to reduce afterload. Because of her solitary kidney with renal insufficiency, Lasix was not initiated in the emergency department and was deferred to hospitalist. Patient was discussed with Dr. Dowling for further workup and management of new onset CHF in a patient with acute renal insufficiency and a solitary kidney. Treatment Plan: [] Disposition: [] Impression: acute CHF, renal insufficiency, solitary kidney. This note was generated with [employer] dictation software. It may contain incorrect words, spelling, and punctuation that were not noted in review of the chart prior to signing ED Disposition - Plan for ED Patient: Chief Complaint: Shortness of Breath What to do if you have Problems For any increased pain, shortness of breath, bleeding, nausea or vomiting, chest pain, or any unexpected problems, contact your Primary Care Provider. Call [facility] ([phone]) or report to the closest Emergency Room. Call 911 if necessary. 08/16/18 1724 <Electronically signed by Claudia De León MD> Date Claudia De León MD Cosigner Signature (If Indicated): Date CC: Poli Mendieta MD CBC W/DIFF, AUTOMATED Collected: 08/16/2018 Status: F Source: [place] 3:00 PM [facility] TYPE CODE TESTS RESULT OUT OF RANGE REFERENCE UNITS LAB L100.1000 4.4-11.0 K/mm3 Normal WBC 6.5 LAB L100.1200 4.2-5.4 M/mm3 Normal RBC 4.45 LAB L100.1300 12.0-15.0 g/dl Normal HGB 12.9 LAB L100.1400 37-47 % Normal HCT 41.0 LAB L100.1500 81-99 fL Normal MCV 92.1 LAB L100.1600 27.0-32.0 pg Normal MCH 29.0 LAB L100.1700 32-36 g/gl Low MCHC 31.5 LAB L100.1810 11.6-14.6 % High RDW CV 16.1 LAB L100.1820 35.1-43.9 fl High RDW SD 54.8 LAB L100.1900 150-450 K/mm3 Normal PLT 247 LAB L100.2000 6.2-12.0 fl Normal MPV 10.1 LAB L100.2100 47-70 % High NEUT% 74.6 LAB L100.2200 19-41 % Low LY% 15.0 LAB L100.2300 0-10 % Normal MONO% 8.9 LAB L100.2400 0-5 % Normal EO% 0.9 LAB L100.2500 0-1 % Normal BASO% 0.6 LAB L100.2550 0.0-0.9 % Normal IM GRAN % 0.000 Result Comment: IG% - Immature Granulocytes (promyelocytes, myelocytes and metamyelocytes) > 1% indicates that a LEFT SHIFT is Present. LAB L100.2620 2.0-7.7 X10 3/uL Normal Absolute Neut 4.9 LAB L100.2720 0.83-4.51 X10 3/ul Normal Absolute Lymph 0.98 Performed By: #### L100.0100 #### [facility] [address] [place], [address] BASIC METABOLIC Collected: 08/16/2018 Status: F Source: [facility] PROFILE ([facility]) 3:00 PM [facility] TYPE CODE TESTS RESULT OUT OF RANGE REFERENCE UNITS LAB L501.0100 74-106 mg/dL Normal GLU 96 Result Comment: Please note revised GLUCOSE reference range effective 2017. LAB L501.1000 7-18 mg/dL High BUN 29 LAB L501.1100 0.55-1.02 mg/dL High CREAT,SERUM 1.63 Result Comment: The validity of the calculated GFR AND GFRAA in patients over 70 years has not been determined. Clinical correlation is essential. LAB L501.1110 >60 mL/min Low EST GFR 32 Result Comment: Non- GFR Calc LAB L501.1115 >60 mL/min Low EST GFR - AA 39 Result Comment: GFR Calc LAB L501.1255 ml/min Normal Estimated CRCL 48.69 LAB L501.1300 10-20 RATIO Normal BUN/CRE 17.8 LAB L501.2200 8.5-10 mg/dL Normal .1 CA 8.7 LAB L501.5300 136-14 mmol/L Normal 5 NA 145 LAB L501.5600 3.5-5. mmol/L Normal 1 K 4.3 LAB L501.5900 98-107 mmol/L High CL 112 LAB L501.6100 21.0-3 mmol/L Normal 2.0 CO2 27.0 LAB L501.6200 5-15 Normal GAP 6 Performed By: #### L500.2500, L501.4010 #### [facility] [address] [facility] [place], [address] TROPONIN-I Collected: 08/16/2018 Status: F Source: [place] 3:00 PM [facility] TYPE CODE TESTS RESULT OUT OF RANGE REFERENCE UNITS LAB L501.4010 <0.045 ng/mL Normal 0.034 TROPONIN-I Result Comment: TROPONIN-I EXPECTED VALUES <0.045 Negative 0.045 - 0.590 Consistent with Cardiac Damage > OR = 0.600 Critical Value Not every elevated troponin is indicative of OR. These values should be used with clinical judgement in examining the patient's clinical picture for diagnosis. To establish a diagnosis of OR versus myocardial injury, there must be a demonstrated rise and/or fall in the troponin values, in addition to ischemic symptoms, EKG changes, new regional wall motion abnormality, and/or angiographical evidence. PLEASE NOTE: REFERENCE RANGES EDITED 18 Performed By: #### L500.2500, L501.4010 #### [facility] [address] [facility] [place], [address] BNP,B-TYPE NATRIURETIC Collected: 08/16/2018 Status: F Source: [place] PEPTIDE 3:00 PM [facility] TYPE CODE TESTS RESULT OUT OF RANGE REFERENCE UNITS LAB L503.6620 0-100 pg/mL High B-TYPE 1349.2 KAVIN PEP Performed By: #### L503.6620 #### [facility] [address] [place], [address] PROTHROMBIN TIME W/INR Collected: 08/16/2018 Status: F Source: [place] 3:00 PM [facility] TYPE CODE TESTS RESULT OUT OF RANGE REFERENCE UNITS LAB L300.4150 11.7-14.9 SECONDS High PROTIME 15.1 LAB L300.4200 Normal INR 1.2 Performed By: #### L300.3900, L300.4310 #### [facility] [address] [place], [address] PARTIAL THROMBOPLAST Collected: 08/16/2018 Status: F Source: [facility] TIME 3:00 PM [facility] TYPE CODE TESTS RESULT OUT OF RANGE REFERENCE UNITS LAB L300.4310 24.1-36.2 Seconds Normal PTT 29.0 Performed By: #### L300.3900, L300.4310 #### [facility] [address] [place], [address] CHEST PA AND LATERAL Observed: 08/16/2018 Status: F Source: [place] 2:44 PM [facility] Imaging Services [address] [place] [address] Chest PA and Lateral MR#: [id number] Acct: [id number] Name: MILAGROS STEVENSON Rep #: [id number] : 1935 F 82 From: Zonia Foreman MD PCP: Poli Mendieta MD Status: REG ER Study: Chest PA and Lateral Date of Exam: 08/16/18 Exam# [id number] Ordering Dr: Claudia De León MD STUDY: X-RAY CHEST REASON FOR EXAM: Female, 82 years old. Shortness of breath, weakness TECHNIQUE: PA and lateral views of the chest. COMPARISON: April 11, 2018 chest x-ray FINDINGS: There is a pattern of diffuse increased interstitial markings. Since prior study there is opacity in the left lower lobe. There is blunting of the right costophrenic angle. There is mild cardiac enlargement. Normal mediastinum and awilda. Normal visualized pulmonary arteries. There is atherosclerotic calcification of the aortic arch with tortuosity. There are diffuse degenerative changes of the visualized thoracic spine. Normal visualized ribs, clavicles, and shoulders. There is no demonstrated abnormality of the visualized soft tissue structures of the upper abdomen. RAD/Chest PA and Lateral IMPRESSION: Diffuse increased interstitial markings suspicious for either edema and/or atypical infiltrates superimposed on underlying chronic lung disease. There are bilateral lower lobe opacities left greater than right which suspicious for effusions and atelectasis. Underlying infection is not excluded. Mild cardiomegaly. Electronically Signed: Zonia Foreman MD at 15:43 EST Tel , Service support , CC: Claudia De León MD; Poli Mendieta MD Chiropractor Sole Practitioner: Signed DISCHARGE SUMMARY Observed: 04/14/2018 Status: F Source: [place] 7:07 PM [facility] Medical Records Department [address] [place] [address] Discharge Summary 04/14/18 1903 MR#: [id number] Acct: [id number] Name: MILAGROS STEVENSON Rep #: [id number] : 1935 82 From: Jeanmarie Veras DO PCP: Poli Mendieta MD Status: DIS [facility] Y Location: [place] [address] Discharge Date and Diagnosis Date of Admission: 04/11/18 Date of Discharge: 04/12/18 - Primary Discharge Diagnosis #1 musculoskeletal chest pain #2 COPD #3 chronic hypoxic respiratory failure #4 hypertension - Secondary Discharge Diagnosis Chronic Problems (Last Reviewed 04/06/18 @ 10:57 by Wendy Carter) Chronic respiratory failure with hypoxia (Chronic) Obesity, morbid, BMI 40.0-49.9 (Chronic) History of tobacco use (Chronic) quit 1994 Gout (Chronic) Hypoxia (Chronic) COPD exacerbation (Chronic) Hypertension (Chronic) History of TIA (transient ischemic attack) (Chronic) 1998 History of kidney cancer (Chronic) CKD (chronic kidney disease) (Chronic) Hospital Course and Treatment Operations: None Procedures: Nuclear stress test Summary of Care Provided: The patient is a 82 year old F seen in the emergency room at [facility] with chief complaint of chest discomfort she described as a dull pain. Workup in the emergency room included an EKG which showed normal sinus rhythm with occasional PACs and PVCs, troponin was 0.017, d-dimer was 0.85, CT of the chest was obtained and showed no evidence of PE or abnormality. Patient was placed in observation status on MedSurg, cardiac enzymes were cycled and these remained negative, patient underwent a resting nuclear pharmacological stress test that was negative for reversible ischemia. On 04/12/18, patient was seen and examined felt to be in stable condition for discharge home Discharge Activity: Return to Normal Activity Weight Bearing Status: Weight bearing as tolerated Home Medications: Medications to take at Discharge Estrogens, Conjugated [Premarin] 0.3 mg PO DAILY 04/04/15 Hydrochlorothiazide [Hctz] 25 mg PO DAILY 04/04/15 MedroxyPROGESTERone [Provera] 5 mg PO DAILY 05/18/15 Felodipine [Plendil] 10 mg PO DAILY 12/02/17 Oxygen, Home [Home Oxygen] 2 lpm NASAL CONT #1 unit 12/06/17 Aspirin 325 mg PO DAILY@0800 04/12/18 Umeclidinium Brm/Vilanterol Tr [Anoro Ellipta 62.5-25 Mcg INH] 1 puff INHALATION DAILY 04/12/18 Primary Care Physician: Poli Mendieta MD [Primary Care Provider] - Please follow up with your Primary Care Physician in: in 2 weeks Disposition: Home Minutes spent on discharge:: 25 Patient Condition:: Stable Medical Necessity - Tobacco Use Smoking Status: Former smoker - Quit 1994, notes < 1/2 ppd since youth. Tobacco Use: Non-smoker Meaningful Use Info Meaningful Use Diagnoses (Choose all that apply): None applicable Code Visit OBSV E AND M: 16990 Observation care discharge 04/14/18 641 <Electronically signed by Jeanmarie Veras DO> Date Jeanmarie Veras DO Cosigner Signature (if applicable): Date CC: Poli Mendieta MD; Jeanmarie Veras DO Signed 12 LEAD ELECTROCARDIOGRAM Observed: 04/14/2018 Status: F Source: [place] 11:30 AM [facility] Cardiovascular Services [address] [place] [address] 12 Lead EKG 04/12/1847 MR#: [id number] Acct: [id number] Name: MILAGROS STEVENSON Rep #: [id number] : 1935 82 From: Cornelius Hernández MD Attending Dr: Jeanmarie Veras DO Status: DIS MARION Ordering Dr: Constance Kaur Date: 04/12/18 Location: [facility] Sex: F C Admitted: 04/11/18 Test Reason : CP ADMIT Blood Pressure : / mmHG Vent. Rate : 075 BPM Atrial Rate : 075 BPM P-R Int : 172 ms QRS Dur : 088 ms QT Int : 396 ms P-R-T Axes : 063 040 042 degrees QTc Int : 442 ms Sinus rhythm with occasional Premature ventricular complexes Low voltage QRS (limb leads) Confirmed by HERMES SHELDON, CORNELIUS ([id number]), online editor SUNSHINE STODDARD ([id number]) on 04/14/2018 11:29:45 AM Referred By: DR KAUR Confirmed By:CORNELIUS HERNÁNDEZ MD 04/14/18 1129 Date Cornelius Hernández MD CC: Poli Mendieta MD; Constance Kaur; Jeanmarie Veras DO Signed 12 LEAD ELECTROCARDIOGRAM Observed: 04/14/2018 Status: F Source: [place] 10:53 AM [facility] Cardiovascular Services [address] [place] [address] 12 Lead EKG 04/11/182001 MR#: [id number] Acct: [id number] Name: MILAGROS STEVENSON Rep #: [id number] : 1935 82 From: Cornelius Hernández MD Attending Dr: Jeanmarie Veras DO Status: DIS MARION Ordering Dr: Joe Severino DO Date: 04/11/18 Location: [facility] Sex: F C Admitted: 04/11/18 Test Reason : CP Blood Pressure : / mmHG Vent. Rate : 101 BPM Atrial Rate : 101 BPM P-R Int : 156 ms QRS Dur : 078 ms QT Int : 336 ms P-R-T Axes : 053 027 042 degrees QTc Int : 435 ms Sinus tachycardia with Premature supraventricular complexes and with frequent Premature ventricular complexes Otherwise normal ECG Confirmed by HERMES SHELDON, CORNELIUS ([id number]), online editor SUNSHINE STODDARD ([id number]) on 04/14/2018 10:53:26 AM Referred By: FAWAD Confirmed By:CORNELIUS HERNÁNDEZ MD 04/14/18 1053 Date Cornelius Hernández MD CC: Poli Mendieta MD; Jeanmarie Veras DO; Joe Severino DO Signed DISCHARGE INSTRUCTION Observed: 04/12/2018 Status: F Source: [place] 11:48 AM [facility] Medical Records Department [address] [place] [address] Instructions for Home/Discharge Instructions 04/12/18 1147 MR#: [id number] Acct: [id number] Name: MILAGROS STEVENSON Rep #: [id number] : 1935 82 From: Jeanmarie Veras DO PCP: Poli Mendieta MD Status: ADM [facility] - Discharge Diagnoses Current Active Problems: Current Active and Chronic Problems (Last Reviewed 04/06/18 @ 10:57 by Wendy Caretr) Chronic respiratory failure with hypoxia (Chronic) Chest pain (Acute) You will use the following diet at home:: No restrictions Your food should be the consistency of: Regular Your liquids should be the consistency of: Regular/Thin Discharge Activity: Return to Normal Activity Weight Bearing Status: Weight bearing as tolerated Allergies/Adverse Reactions: Allergies clindamycin [From Cleocin] Allergy (Verified 04/11/18 20:07) Unknown oxycodone HCl [From OxyContin] Allergy (Verified 04/11/18 20:07) Anaphylaxis Sulfa (Sulfonamide Antibiotics) Allergy (Verified 04/11/18 20:07) Anaphylaxis vancomycin Allergy (Verified 04/11/18 20:07) Hives guaifenesin [From Entex LA] Adverse Reaction (Verified 04/11/18 20:07) Unknown phenylephrine [From Entex LA] Adverse Reaction (Verified 04/11/18 20:07) Unknown phenylpropanolamine [From Entex LA] Adverse Reaction (Verified 04/11/18 20:07) Unknown BETA BLOCKERS Adverse Reaction (Uncoded 04/11/18 20:07) Unknown Medications to take at Discharge Estrogens, Conjugated [Premarin] 0.3 mg PO DAILY 04/04/15 Hydrochlorothiazide [Hctz] 25 mg PO DAILY 04/04/15 MedroxyPROGESTERone [Provera] 5 mg PO DAILY 05/18/15 Felodipine [Plendil] 10 mg PO DAILY 12/02/17 Oxygen, Home [Home Oxygen] 2 lpm NASAL CONT #1 unit 12/06/17 Aspirin 325 mg PO DAILY@0800 04/12/18 Umeclidinium Brm/Vilanterol Tr [Anoro Ellipta 62.5-25 Mcg INH] 1 puff INHALATION DAILY 04/12/18 Primary Care Physician: Poli Mendieta MD [Primary Care Provider] - Please follow up with your Primary Care Physician in: in 2 weeks Test Results: Test results from this visit will be discussed in further detail at your follow-up appointment, if applicable. 04/12/18 1148 <Electronically signed by Jeanmarie Veras DO> Date Jeanmarie Veras DO CC: Poli Mendieta MD STRESS REPORT Observed: 04/12/2018 Status: F Source: [place] 9:50 AM [facility] Cardiovascular Services [address] [place] [address] MR#: [id number] Acct: [id number] Name: MILAGROS STEVENSON Rep #: [id number] : 1935 82 From: Cornelius Hernández MD Primary Care: Poli Mendieta MD Status: ADM MARION Ordering Dr: Sex: F C Stress Test Report Date: 04/12/2018 Procedure: Pharmacologic stress nuclear imaging study Indications: Chest pain Consent: Per the patient Procedure: The patient underwent pharmacologic (Regadenoson) evaluation with a peak heart rate of 105 beats per minute (75 predicted maximal heart rate) and a peak blood pressure of 160/100 mmHg. The baseline ECG demonstrated normal sinus rhythm. The peak pharmacologic ECG demonstrated no obvious ECG changes. Was a rare PVC during recovery. There was no complaint of chest discomfort during pharmacologic infusion or recovery. The examination was discontinued secondary to completion of protocol. Impression: 1. Pharmacologic (Regadenoson) evaluation 2. Peak pharmacologic ECG with no obvious ECG changes. 3. There was a rare PVC during recovery 4. Nuclear images pending Myocardial perfusion imaging study: Technique: The patient was injected with 15 millicuries of technetium 99m Cardiolite and subsequently rest SPECT Cardiolite nuclear imaging was obtained in the horizontal long, vertical long, and short axis views. The patient underwent pharmacologic (Regadenoson) evaluation with a peak heart rate of 105 beats per minute (75 % percent predicted maximal heart rate) and a peak blood pressure of 160/100 mmHg. The patient was injected with 45 millicuries of technetium 99m Cardiolite and subsequently stress SPECT Cardiolite nuclear imaging was obtained in the horizontal long, vertical long, and short axis views. A gated Cardiolite study at peak stress was obtained. Interpretation: Evaluation of the raw images suggest an element of body motion during image acquisition. Rest and stress SPECT Cardiolite nuclear imaging status post realignment and normalization correction demonstrate at rest areas of diminished tracer uptake in portions of the basal inferior septum, basal inferior, and basal inferolateral segments which appears to extend towards the mid inferior segments and status post stress appears to demonstrate improvement and/or resolution. There is end systolic thickening and brightening. The gated Cardiolite study demonstrates myocardial thickening and inward wall motion. The reported LVEF is 57 %. Impression: 1. Rest and stress SPECT currently nuclear imaging demonstrate an element of body motion during image acquisition and at rest myocardial perfusion changes which appear to improve and/or normalize following stress appearing compatible with body motion artifact and/or shifting soft tissue attenuation/artifact with no myocardial perfusion changes considered diagnostic for associated stress-induced myocardial ischemia. 2. The gated Cardiolite study reports an LVEF of 57 %. This note was generated with [employer] software. It may contain incorrect words, spelling, and punctuation that were not noted in checking the note before signing. 04/12/18 0982 <Electronically signed by Cornelius Hernández MD> Date Cornelius Hernández MD CC: Poli Mendieta MD; Jeanmarie Veras DO Date Dictated: 04/12/18941 Date Transcribed: 04/12/18941 Chiropractor Sole Practitioner: PM Signed TROPONIN-I Collected: 04/12/2018 Status: F Source: [place] 3:55 AM [facility] Order Comment: 'TROP' Serial specimen #1, #2 or #3: 3 TYPE CODE TESTS RESULT OUT OF RANGE REFERENCE UNITS LAB L501.4010 <0.045 ng/mL Normal < 0.015 TROPONIN-I Result Comment: TROPONIN-I EXPECTED VALUES <0.045 Negative 0.045 - 0.590 Consistent with Cardiac Damage > OR = 0.600 Critical Value Not every elevated troponin is indicative of OR. These values should be used with clinical judgement in examining the patient's clinical picture for diagnosis. To establish a diagnosis of OR versus myocardial injury, there must be a demonstrated rise and/or fall in the troponin values, in addition to ischemic symptoms, EKG changes, new regional wall motion abnormality, and/or angiographical evidence. PLEASE NOTE: REFERENCE RANGES EDITED 18 Performed By: #### L501.4010 #### [facility] [address] [place], [place], [address] PROTHROMBIN TIME W/INR Collected: 04/12/2018 Status: F Source: [place] 3:55 AM [facility] TYPE CODE TESTS RESULT OUT OF RANGE REFERENCE UNITS LAB L300.4150 11.7-14.9 SECONDS Normal PROTIME 14.3 LAB L300.4200 Normal INR 1.1 Performed By: #### L300.3900, L300.4310 #### [facility] [address] [place], [address] PARTIAL THROMBOPLAST Collected: 04/12/2018 Status: F Source: [place] TIME 3:55 AM [facility] TYPE CODE TESTS RESULT OUT OF RANGE REFERENCE UNITS LAB L300.4310 24.1-36.2 Seconds Normal PTT 28.4 Performed By: #### L300.3900, L300.4310 #### [facility] [address] [place], [place], [address] CBC-COMPLETE BLOOD CNT Collected: 04/12/2018 Status: F Source: [place] NO DIFF 3:55 AM [facility] TYPE CODE TESTS RESULT OUT OF RANGE REFERENCE UNITS LAB L100.1000 4.4-11.0 K/mm3 Normal WBC 8.8 LAB L100.1200 4.2-5.4 M/mm3 Normal RBC 4.82 LAB L100.1300 12.0-15.0 g/dl Normal HGB 13.6 LAB L100.1400 37-47 % Normal HCT 42.5 LAB L100.1500 81-99 fL Normal MCV 88.2 LAB L100.1600 27.0-32.0 pg Normal MCH 28.2 LAB L100.1700 32-36 g/gl Normal MCHC 32.0 LAB L100.1810 11.6-14.6 % High RDW CV 15.2 LAB L100.1820 35.1-43.9 fl High RDW SD 48.9 LAB L100.1900 150-450 K/mm3 Normal PLT 248 LAB L100.2000 6.2-12.0 fl Normal MPV 10.2 Performed By: #### L100.0500 #### [facility] [address] [place], [place], [address] BASIC METABOLIC Collected: 04/12/2018 Status: F Source: [place] PROFILE (BMP) 3:55 AM [facility] TYPE CODE TESTS RESULT OUT OF RANGE REFERENCE UNITS LAB L501.0100 74-106 mg/dL Normal GLU 91 Result Comment: Please note revised GLUCOSE reference range effective 2017. LAB L501.1000 7-18 mg/dL High BUN 31 LAB L501.1100 0.55-1.02 mg/dL High CREAT,SERUM 1.28 Result Comment: The validity of the calculated GFR AND GFRAA in patients over 70 years has not been determined. Clinical correlation is essential. LAB L501.1110 >60 mL/min Low EST GFR 43 Result Comment: Non- GFR Calc LAB L501.1115 >60 mL/min Low EST GFR - AA 52 Result Comment: GFR Calc LAB L501.1255 ml/min Normal Estimated CRCL 32.82 LAB L501.1300 10-20 RATIO High BUN/CRE 24.2 LAB L501.2200 8.5-10 mg/dL Normal .1 CA 8.7 LAB L501.5300 136-14 mmol/L Normal 5 NA 140 LAB L501.5600 3.5-5. mmol/L Normal 1 K 4.6 LAB L501.5900 98-107 mmol/L Normal CL 106 LAB L501.6100 21.0-3 mmol/L Normal 2.0 CO2 22.0 LAB L501.6200 5-15 Normal GAP 12 Performed By: #### L500.2500, L500.4100 #### [facility] [address] [place], [place], [address] LIPID PROFILE Collected: 04/12/2018 Status: F Source: [place] 3:55 AM [facility] TYPE CODE TESTS RESULT OUT OF RANGE REFERENCE UNITS LAB L501.4900 200 mg/dL Normal CHOL 79 Result Comment: <200 mg/dL Desirable 200-240 mg/dL Borderline >240 mg/dL High Risk LAB L501.5000 mg/dL Normal TRIG 49 Result Comment: The drugs N-Acetylcysteine and Metamizole may falsely depress this assay. Serum Triglycerides Reference Interval Normal <150 mg/dL Borderline high 150 - 199 mg/dL High 200 - 499 mg/dL Very High > or = 500 mg/dL LAB L501.6400 mg/dL Normal HDL 46 Result Comment: The drugs N-Acetylcysteine and Metamizole may falsely depress this assay. Reference Range HDL <40 mg/dL Low HDL Cholesterol HDL >or= 60 mg/dL High HDL Cholesterol LAB L501.6500 0-130 mg/dL Normal LDL 23 LAB L501.6600 5-40 mg/dL Normal VLDL 10 Performed By: #### L500.2500, L500.4100 #### [facility] [address] [place], [place], [address] MAGNESIUM Collected: 04/12/2018 Status: F Source: [place] 12:42 AM [facility] TYPE CODE TESTS RESULT OUT OF RANGE REFERENCE UNITS LAB L501.5200 1.6-2.6 mg/dL Normal MG 1.8 Performed By: #### L501.5200 #### [facility] [address] [facility] [place], [address] TROPONIN-I Collected: 04/12/2018 Status: F Source: [place] 12:42 AM [facility] Order Comment: 'TROP' Serial specimen #1, #2 or #3: 2 TYPE CODE TESTS RESULT OUT OF RANGE REFERENCE UNITS LAB L501.4010 <0.045 ng/mL Normal < 0.015 TROPONIN-I Result Comment: TROPONIN-I EXPECTED VALUES <0.045 Negative 0.045 - 0.590 Consistent with Cardiac Damage > OR = 0.600 Critical Value Not every elevated troponin is indicative of OR. These values should be used with clinical judgement in examining the patient's clinical picture for diagnosis. To establish a diagnosis of OR versus myocardial injury, there must be a demonstrated rise and/or fall in the troponin values, in addition to ischemic symptoms, EKG changes, new regional wall motion abnormality, and/or angiographical evidence. PLEASE NOTE: REFERENCE RANGES EDITED 18 Performed By: #### L501.4010 #### [facility] [place], [address] HISTORY AND PHYSICAL Observed: 04/12/2018 Status: F Source: [place] EXAM 12:41 AM [facility] [place] [address] History and Physical 04/11/18 2329 MR#: [id number] Acct: [id number] Name: MILAGROS STEVENSON Rep #: [id number] : 1935 82 From: Constance Kaur PCP: Poli Mendieta MD Status: ADM [facility]ION Y Location: [place] [address] Problem List (1) Chest pain Status: Acute Qualifiers: Chest pain type: unspecified Qualified Code(s): R07.9 - Chest pain, unspecified (2) Chronic respiratory failure with hypoxia Status: Chronic (3) Obesity, morbid, BMI 40.0-49.9 Status: Chronic (4) History of tobacco use Status: Chronic Comment: quit 1994 (5) Gout Status: Chronic Qualifiers: Gout site: unspecified site Gout etiology: unspecified cause Chronicity: unspecified Qualified Code(s): M10.9 - Gout, unspecified (6) Hypertension Status: Chronic Qualifiers: Hypertension type: essential hypertension Qualified Code(s): I10 - Essential (primary) hypertension (7) History of TIA (transient ischemic attack) Status: Chronic Comment: 1998 (8) History of kidney cancer Status: Chronic (9) CKD (chronic kidney disease) Status: Chronic Qualifiers: Chronic kidney disease stage: stage 3 (moderate) Qualified Code(s): N18.3 - Chronic kidney disease, stage 3 (moderate) History of Present Illness Date of Admission: 04/11/18 Chief Complaint: Chest pain The patient is a 82 y/o w/ PMHx: Obesity, History of Tobacco use, Gout, Chronic COPD with Chronic hypoxic respiratory failure (2L NC), Hypertension, Hx TIA, History of Renal CA, CKD stage III (baseline Cr 1.4) who presents to the [facility] ED on 04/11/18 with history of onset mild dull discomfort underneath the left breast radiating toward the back initially minimal in nature, 1-2 out of 10 starting the day prior progressively worsening and becoming sharp, stabbing in nature possibly worsened with movement as son noted on the way to the emergency room going over the railroad tracks because worsened discomfort with no associated dyspnea, nausea, emesis or diaphoresis. In the emergency room patient noted that chest discomfort had been 10/10 upon initial ED presentation however following IV morphine it is now currently 4/10. In the ED work-up included T 98, heart rate 89, BP initially 188/129--> 162/76, respiratory rate 18, 93% on 2 L nasal cannula, CBC with WBC 9.9, hemoglobin 13.4, platelet 262 without left shift, d-dimer is 0.85, BMP with BUN/creatinine 35/1.31, troponin 0 0.017, lipase 154, chest x-ray with chronic changes, mild cardiomegaly, CTPA with no evidence of PE or arterial dissection, bilateral emphysematous changes and pulmonary fibrosis, atherosclerosis. In the ED patient administered aspirin, morphine, Zofran, normal saline. Past Medical History Past Medical History (Chronic Problems): Chronic Problems (Last Reviewed 04/06/18 @ 10:57 by Wendy Carter) Chronic respiratory failure with hypoxia (Chronic) Obesity, morbid, BMI 40.0-49.9 (Chronic) History of tobacco use (Chronic) quit 1994 Gout (Chronic) Hypoxia (Chronic) COPD exacerbation (Chronic) Hypertension (Chronic) History of TIA (transient ischemic attack) (Chronic) 1998 History of kidney cancer (Chronic) CKD (chronic kidney disease) (Chronic) Medical History: Medical History (Last Reviewed 04/06/18 @ 10:57 by Wendy Carter) Acute respiratory failure with hypoxia (Acute) J96.01 Obesity, morbid, BMI 40.0-49.9 (Chronic) E66.01 History of tobacco use (Chronic) Z87.891 quit 1994 Gout (Chronic) M10.9 Hypoxia (Chronic) R09.02 COPD exacerbation (Chronic) J44.1 Hypertension (Chronic) I10 History of TIA (transient ischemic attack) (Chronic) 1998 History of kidney cancer (Chronic) Z85.528 CKD (chronic kidney disease) (Chronic) N18.9 SOB (shortness of breath) (Acute) R06.02 Acute sinusitis J01.90 Biceps tendonitis M75.20 Biliary colic K80.50 Cancer of right kidney 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 Cough R05 Disorder of bone density and structure, unspecified M85.9 Gallstones K80.20 Impingement syndrome of left shoulder M75.42 Influenza A J10.1 Left rotator cuff tear M75.102 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 Skin neoplasm D49.2 Strain of muscle(s) and tendon(s) of the rotator cuff of left shoulder, initial encounter S46.012A DJD (degenerative joint disease) M19.90 Kidney disease N28.9 Stasis dermatitis I87.2 Venous insufficiency I87.2 Elbow fracture, right S42.401A Allergies clindamycin [From Cleocin] Allergy (Verified 04/11/18 20:07) Unknown oxycodone HCl [From OxyContin] Allergy (Verified 04/11/18 20:07) Anaphylaxis Sulfa (Sulfonamide Antibiotics) Allergy (Verified 04/11/18 20:07) Anaphylaxis vancomycin Allergy (Verified 04/11/18 20:07) Hives guaifenesin [From Entex LA] Adverse Reaction (Verified 04/11/18 20:07) Unknown phenylephrine [From Entex LA] Adverse Reaction (Verified 04/11/18 20:07) Unknown phenylpropanolamine [From Entex LA] Adverse Reaction (Verified 04/11/18 20:07) Unknown BETA BLOCKERS Adverse Reaction (Uncoded 04/11/18 20:07) Unknown Home Medications: Ambulatory Orders Medication Instructions Recorded Estrogens, Conjugated [Premarin] 0.3 mg PO DAILY 04/04/15 Hydrochlorothiazide [Hctz] 25 mg PO DAILY 04/04/15 Surgical History: Surgical History (Last Reviewed 04/06/18 @ 10:57 by Wendy Carter) H/O rotator cuff surgery Z98.890 right History of appendectomy Z90.49 age 18 History of left knee replacement Z96.652 2007 History of nephrectomy Z90.5 1995 for cancer History of total right knee replacement Z96.651 2010 Hx of cholecystectomy Z90.49 2016 Hx of removal of ovary Surgical History: - - Tonsillectomy, appendectomy, cholecystectomy, bilateral shoulder rotator cuff repair, right elbow fracture with surgery with pin in place, bilateral total knee replacement. Renal cell carcinoma, Surgery for SBO, Single salpingectomy and oophorectomy for ectopic . 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 Smoking Status: Former smoker - Quit 1994, notes < 1/2 ppd since youth. Tobacco Use: Non-smoker Alcohol: None Drugs: None - *Family History Paternal Family History: Family History (Last Reviewed 04/06/18 @ 10:57 by Wendy Carter) Mother CAD (coronary artery disease) Father Colon cancer History Items: Cancer - Pancreatic CA, age 3838 years old., Diabetes, Heart Disease, Hypertension Maternal Family History: Family History (Last Reviewed 04/06/18 @ 10:57 by Wendy Carter) Mother CAD (coronary artery disease) Father Colon cancer History Items: Heart Disease, Hypertension Review of Systems Constitutional: Reports: Weakness, Fatigue. Denies: Chills, Fever, Weight Change HEENT: Denies: Head Aches, Sinus Congestion, Sinus Drainage Cardiovascular: Reports: Chest Pain, Chest Pressure. Denies: Chest Tightness, Edema, Heaviness, Light Headedness, Orthopnea, Palpitations, Syncope Respiratory: Reports: Shortness of breath upon exertion. Denies: Cough, Shortness of breath at rest, Sputum production Gastrointestinal: Denies: Abdominal Pain, Nausea, Vomiting Genitourinary: Denies: Dysuria Musculoskeletal: Reports: Back Pain. Denies: Joint Pain, Joint Tenderness Skin: Denies: Rash, Wounds Neurological: Denies: Numbness, Tingling, Focal weakness Psychiatric: Denies: Anxiety, Depression, Homicidal Ideations, Suicidal Ideations Hematologic/ Lymphatic: Denies: Easy Bruising, Easy Bleeding VTE Information - Inpt Only VTE Present on Admission: No VTE Mechan Device Prophylaxis: SCD's VTE Pharm Prophylaxis ordered?: Yes Patient Problems: Active and Suspected Problems (Last Reviewed 04/06/18 @ 10:57 by Wendy Carter) Chest pain (Acute) Subjective: Seated upright in the ED bed, notes chest pain has improved since initial presentation, still 3-4/10. Objective: Physical Examination: General: awake, alert, oriented x 3 and cooperative, seated upright in the ED bed in no apparent distress, notes chest pain improved, still 3-4/10. Skin: normal color, turgor, no icterus, cyanosis. HEENT: AT/NC, EOMI, PERRLA, MMM, no carotid bruits or JVD noted. Lungs: Diminished BS BL bases, moderate effort, chronic fibrotic base crackles, no wheezing. Heart: Regular rate and rhythm; no gallop, rub audible. Abdomen: soft, morbidly obese, NTTP, ND, normal BS, no HSM; however, habitus makes examination difficult. Extremities: no cyanosis, clubbing, BL ankle non-pitting edema. Neurological: patient awake, alert, oriented x 3; cognitive function intact; pupils equally reactive to light and accomodation; cranial nerves II-XII grossly normal, moving all 4 extremities, no focal deficits, strength moderately to severely globally decreased secondary to acute presentation. Psychiatric: affect appears normal, no acute evidence of depressive or anxiety feelings. - Physical Exam Vital Signs Temp Pulse Resp BP Pulse Ox 98.0 F 85 22 H 162/76 H 95 04/11/18 20:04 04/11/18 23:00 04/11/18 23:00 04/11/18 23:00 04/11/18 23:00 Oxygen Flow Rate (L/min) 2 Oxygen Delivery Method Nasal Cannula Weight: 250 lb Body Mass Index (BMI) 40.3 Laboratory Tests Past 24 Hrs WBC RBC Hgb Hct MCV MCH MCHC RDW RDW Differential Plt Count MPV Immature Gran % (Auto) Neut % (Auto) Assessment/Plan All Active Problems (Last Reviewed 04/06/18 @ 10:57 by Wendy Carter) Chest pain (Acute) Daytime hypersomnia (Acute) Acute respiratory failure with hypoxia (Acute) SOB (shortness of breath) (Acute) The patient is a 82 y/o w/ PMHx: Obesity, History of Tobacco use, Gout, Chronic COPD with Chronic hypoxic respiratory failure (2L NC), Hypertension, Hx TIA, History of Renal CA, CKD stage III (baseline Cr 1.4) who presents to the [facility] ED on 04/11/18 with history of onset mild dull discomfort underneath the left breast radiating toward the back initially minimal in nature, 1-2 out of 10 starting the day prior progressively worsening and becoming sharp, stabbing in nature possibly worsened with movement as son noted on the way to the emergency room going over the railroad tracks because worsened discomfort. (1) Atypical Chest Pain: In the ED work-up included T 98, heart rate 89, BP initially 188/129--> 162/76, respiratory rate 18, 93% on 2 L nasal cannula, CBC with WBC 9.9, hemoglobin 13.4, platelet 262 without left shift, d-dimer is 0.85, BMP with BUN/creatinine 35/1.31, troponin 0 0.017, lipase 154, chest x-ray with chronic changes, mild cardiomegaly, CTPA with no evidence of PE or arterial dissection, bilateral emphysematous changes and pulmonary fibrosis, atherosclerosis. Will admit to PCU, place on a monitored bed to assure no acute myocardial infarction with serial cardiac enzymes and EKGs. Patient is unable to perform exercise thus will proceed with AM nuclear stress testing. ASA, NG, morphine. FLP in AM. Mag pending. (2) Chronic COPD w/ Chronic Hypoxic Respiratory Failure: Will maintain on home oxygen supplementation, continue ATC duonebs, PRN albuterol, HOB, IS parameters. (3) Hypertension: Continue home regimen including felodipine, hydrochlorothiazide, PRN Lopressor. (4) Hx Renal CA, Chronic Kidney Disease Stage III: s/p Unilateral Nephrectomy. Admission BUN/Cr 35/1.31, baseline renal function 1.4, repeat BMP in AM. Follows w/ [facility] [employer] [facility] [employer]. (5) Morbid Obesity: Weight loss and lifestyle changes encouraged, nutrition consulted for education. (6) Hx TIA/CVD: Maintain on asa, BP regimen with goal <140/90, not on statin. (7) GERD: Famotidine. (8) DVT Prophylaxis: SCDs, heparin. (9) CODE status: Discussed CODE status at length including difference between FULL code, DNR-CCA and DNR-CC status. Patient has living will and HCPOA in place. Following discussions about the differences in these status, requested FULL code status. Advanced Care Planning Face to Face Time: 17 minutes. Code Visit OBSV E AND M: 45657 Initial observation care L3 Procedures: 26747 Advncd Care Plan 30 Min 04/12/18 0041 <Electronically signed by Constance Kaur > Date Constance Kaur Cosigner Signature: Date (if applicable) CC: Poli Mendieta MD; Constance Kaur Signed EMERGENCY DEPARTMENT Observed: 04/11/2018 Status: F Source: [place] SUMMARY 11:18 PM [facility] Medical Records Department [address] [place] [id number] Emergency Department Summary 04/11/18 2313 MR#: [id number] Acct: [id number] Name: MILAGROS STEVENSON Rep #: [id number] : 1935 82 From: Joe Severino DO PCP: Poli Mendieta MD Status: REG ER - ER Visit Summary Date of Service: 04/11/18 Chief Complaint: [] History of Present Illness: The patient is a 82 F [presents the emergency department complaint of chest discomfort that started yesterday. Patient describes a sharp dull pain that she rates as a 10 out of 10 in her left chest that radiates straight through to her back. Patient feels mildly short of breath. Patient states that it does not seem to hurt more with deep breath. Patient denies any injury. She denies any fever. Patient states that she has a chronic cough in the morning when she first wakes up but nothing out of the ordinary. Patient denies recent travel or surgery. Patient is never experienced discomfort like this before. She denies any nausea or vomiting. She denies any diaphoresis. She denies pain radiating into the neck, jaw, or arm.] Physical Examination: [HEENT-PERRLA, EOMI. Cranial nerves II through XII grossly intact. TMs clear. Mucous membranes moist. No adenopathy. Cardiovascular-regular rate and rhythm without murmur or ectopy Lungs-clear to auscultation, chest wall stable without crepitus or subcu emphysema. I am unable to reproduce patient's pain with palpation of the chest wall or back. Abdomen-normoactive bowel sounds, soft, nontender, no rebound or rigidity, no peritoneal signs. Extremities-intact 4, normal range of motion, normal pulses, atraumatic] Test Results: [EKG obtained on arrival shows sinus rhythm with a ventricular rate of 101 bpm with occasional PACs and PVCs. CBC with differential obtained showed a white count of 9.9, hemoglobin 13, hematocrit 41, platelets 262. Chemistries unremarkable. BUN was 35 and creatinine was 1.31. Lipase was normal at 154. Troponin was 0.017. D-dimer was slightly elevated 0.85. Chest x-ray showed chronic changes otherwise nothing acute. Given the elevated d-dimer and complaint of sharp stabbing pain in the left chest was concern for PE versus possibility of dissection therefore CTA of the chest was obtained. And showed no evidence of PE or dissection.] Emergency Department Course and Treatment: [Patient was given aspirin in the emergency department was given morphine 4 mg IV. She had good pain relief with that and currently rates her pain a 4 out of 10.] Treatment Plan: Patient will be admitted for further workup and evaluation of her chest pain [as etiology is unclear at this time. Chest pain somewhat atypical but given her age and risk factors recommended admission. Also patient having received IV dye and the fact that she only has 1 kidney 1 at the continue hydration.] Disposition: [Admit] Impression: [Chest pain-rule out acute coronary syndrome] This note was generated with [employer] dictation software. It may contain incorrect words, spelling, and punctuation that were not noted in review of the chart prior to signing ED Disposition - Plan for ED Patient: Chief Complaint: Chest Pain Referrals: Poli Mendieta MD [Primary Care Provider] - What to do if you have Problems For any increased pain, shortness of breath, bleeding, nausea or vomiting, chest pain, or any unexpected problems, contact your Primary Care Provider. Call [facility] ([phone]) or report to the closest Emergency Room. Call 911 if necessary. 04/11/18 2318 <Electronically signed by Joe Severino DO> Date Joe Severino DO Cosigner Signature (If Indicated): Date CC: Poli Mendieta MD CTA CHEST W/WO Observed: 04/11/2018 Status: F Source: [place]EL CONTRAST 9:40 PM [facility] Imaging Services [address] [place] [id number] CTA Chest W/WO Contrast MR#: [id number] Acct: [id number] Name: MILAGROS STEVENSON Rep #: [id number] : 1935 F 82 From: Tracey Villatoro MD PCP: Poli Mendieta MD Status: REG ER Study: CTA Chest W/WO Contrast Date of Exam: 04/11/18 Exam# [id number] Ordering Dr: Joe Severino DO STUDY: CTA CHEST REASON FOR EXAM: Female, 82 years old. Chest pain. RADIATION DOSAGE (If Supplied By Facility): CTDIvol = ( 20.05 ) mGy, DLP = ( 772.13 ) mGycm TECHNIQUE: The examination was performed with the intravenous administration of 100ML ml of Isovue 370 contrast material. Post-processing of the angiographic images was performed, with multiplanar reformation and 3D reconstruction. Individualized dose optimization techniques were used for this CT. COMPARISON: December 03, 2017 FINDINGS: There are bilateral emphysematous changes present. Within the mid and lower lungs there are prominent subpleural interstitial markings associated with scattered honeycombing. There is a calcified nodule within the left lower lobe. Normal enhancement of the main pulmonary artery and right and left pulmonary arteries. Normal enhancement of the bilateral peripheral pulmonary arteries. There is no demonstrated pulmonary embolism. There is atherosclerotic calcification of the aortic arch and descending thoracic aorta. There is no demonstrated aortic dissection. There are calcifications of the coronary arteries. There are grossly stable prominent mediastinal lymph nodes. Normal visualized trachea and bronchi. Normal chest wall structures. There are degenerative changes of thoracic spine. Normal visualized upper abdomen. CT/CTA Chest W/WO Contrast IMPRESSION: No demonstrated pulmonary embolism or arterial dissection. Bilateral emphysematous changes and pulmonary fibrosis. Atherosclerosis. Electronically Signed: Tracey Villatoro MD at 23:14 EDT Tel , Service support , CC: Poli Mendieta MD; Joe Severino DO Chiropractor Sole Practitioner: Signed CBC W/DIFF, AUTOMATED Collected: 04/11/2018 Status: F Source: ROMEL 9:00 PM [facility] TYPE CODE TESTS RESULT OUT OF RANGE REFERENCE UNITS LAB L100.1000 4.4-11.0 K/mm3 Normal WBC 9.9 LAB L100.1200 4.2-5.4 M/mm3 Normal RBC 4.76 LAB L100.1300 12.0-15.0 g/dl Normal HGB 13.4 LAB L100.1400 37-47 % Normal HCT 41.3 LAB L100.1500 81-99 fL Normal MCV 86.8 LAB L100.1600 27.0-32.0 pg Normal MCH 28.2 LAB L100.1700 32-36 g/gl Normal MCHC 32.4 LAB L100.1810 11.6-14.6 % High RDW CV 15.3 LAB L100.1820 35.1-43.9 fl High RDW SD 49.0 LAB L100.1900 150-450 K/mm3 Normal PLT 262 LAB L100.2000 6.2-12.0 fl Normal MPV 10.2 LAB L100.2100 47-70 % High NEUT% 72.8 LAB L100.2200 19-41 % Low LY% 12.7 LAB L100.2300 0-10 % High MONO% 11.6 LAB L100.2400 0-5 % Normal EO% 2.3 LAB L100.2500 0-1 % Normal BASO% 0.5 LAB L100.2550 0.0-0.9 % Normal IM GRAN % 0.100 Result Comment: IG% - Immature Granulocytes (promyelocytes, myelocytes and metamyelocytes) > 1% indicates that a LEFT SHIFT is Present. LAB L100.2620 2.0-7.7 X10 3/uL Normal Absolute Neut 7.2 LAB L100.2720 0.83-4.51 X10 3/ul Normal Absolute Lymph 1.26 Performed By: #### L100.0100 #### [facility] [address] [place], [place], [address] D-DIMER QUANTITATIVE Collected: 04/11/2018 Status: F Source: [place] (DVT/PE) 9:00 PM [facility] TYPE CODE TESTS RESULT OUT OF RANGE REFERENCE UNITS LAB L300.8000 0.27-0.49 FEU/ug/m High alert D-DIMER 0.85 QUANT Result Comment: D-Dimer ELEVATED (>0.49): Additional studies and clinical assessments are indicated to conclude diagnosis of: Deep Vein Thrombosis (DVT) or Pulmonary Embolism (PE) CRITICAL VALUE VERIFIED. CALLED TO [facility] 04/11/18 Corrina Ortiz. RESULTS READ BACK BY SAME . Performed By: #### L300.8000 #### [facility] [address] [place], [place], [address] LIPASE Collected: 04/11/2018 Status: F Source: [place] 9:00 PM [facility] TYPE CODE TESTS RESULT OUT OF RANGE REFERENCE UNITS LAB L501.2450 73-393 U/L Normal LIPASE 154 Performed By: #### L501.2450 #### [facility] [address] [place], [address] BASIC METABOLIC Collected: 04/11/2018 Status: F Source: ROMEL PROFILE (BMP) 9:00 PM [facility] Order Comment: 'TROP' Serial specimen #1, #2, #3, or #4: 1 TYPE CODE TESTS RESULT OUT OF RANGE REFERENCE UNITS LAB L501.0100 74-106 mg/dL Normal GLU 93 Result Comment: Please note revised GLUCOSE reference range effective 2017. LAB L501.1000 7-18 mg/dL High BUN 35 LAB L501.1100 0.55-1.02 mg/dL High CREAT,SERUM 1.31 Result Comment: The validity of the calculated GFR AND GFRAA in patients over 70 years has not been determined. Clinical correlation is essential. LAB L501.1110 >60 mL/min Low EST GFR 42 Result Comment: Non- GFR Calc LAB L501.1115 >60 mL/min Low EST GFR - AA 50 Result Comment: GFR Calc LAB L501.1255 ml/min Normal Estimated CRCL 32.06 LAB L501.1300 10-20 RATIO High BUN/CRE 26.7 LAB L501.2200 8.5-10 mg/dL Normal .1 CA 9.1 LAB L501.5300 136-14 mmol/L Normal 5 NA 140 LAB L501.5600 3.5-5. mmol/L Normal 1 K 5.1 Result Comment: Moderate Hemolysis, Result may be falsely increased. LAB L501.5900 98-107 mmol/L Normal CL 106 LAB L501.6100 21.0-32.0 mmol/L Normal CO2 23.0 LAB L501.6200 5-15 Normal GAP 11 Performed By: #### L500.2500, L501.4010 #### [facility] [address] [place], [address] TROPONIN-I Collected: 04/11/2018 Status: F Source: ROMEL 9:00 PM [facility] Order Comment: 'TROP' Serial specimen #1, #2, #3, or #4: 1 TYPE CODE TESTS RESULT OUT OF RANGE REFERENCE UNITS LAB L501.4010 <0.045 ng/mL Normal 0.017 TROPONIN-I Result Comment: TROPONIN-I EXPECTED VALUES <0.045 Negative 0.045 - 0.590 Consistent with Cardiac Damage > OR = 0.600 Critical Value Not every elevated troponin is indicative of OR. These values should be used with clinical judgement in examining the patient's clinical picture for diagnosis. To establish a diagnosis of OR versus myocardial injury, there must be a demonstrated rise and/or fall in the troponin values, in addition to ischemic symptoms, EKG changes, new regional wall motion abnormality, and/or angiographical evidence. PLEASE NOTE: REFERENCE RANGES EDITED 18 Performed By: #### L500.2500, L501.4010 #### [facility] [address] [place], [address] CHEST 1 VIEW Observed: 04/11/2018 Status: F Source: [place]S (PORTABLE) 8:20 PM [facility] Imaging Services [address] [place] [address] Chest 1 View (Portable) MR#: [id number] Acct: [id number] Name: STEVENSONMILAGROS Rep #: [id number] : 1935 F 82 From: Mendoza Walters MD PCP: Poli Mendieta MD Status: REG ER Study: Chest 1 View (Portable) Date of Exam: 04/11/18 Exam# [id number] Ordering Dr: Joe Severino DO STUDY: X-RAY CHEST REASON FOR EXAM: Female, 82 years old. Chest pain TECHNIQUE: Single AP portable view of the chest. COMPARISON: Prior study of 12/05/2017 FINDINGS: monitoring and evaluation advisor leads are present. Prominent bronchopulmonary markings are again noted, similar to the previous study. There is no evidence of jessica infiltrate or atelectasis. There is no demonstrated pleural abnormality. There is mild cardiac enlargement. Normal mediastinum and awilda. Normal visualized pulmonary arteries. There are calcified plaques of the aortic arch. There are diffuse degenerative changes of the visualized thoracic spine. There is a tendon anchor in the right humeral head. There is no demonstrated abnormality of the visualized soft tissue structures of the upper abdomen. RAD/Chest 1 View (Portable) IMPRESSION: 1. Prominent bronchopulmonary marking pattern of the lungs, similar to the previous study. 2. Mild cardiomegaly. 3. Calcified plaques of the aortic arch. 4. Degenerative changes of the visualized thoracic spine. 5. No acute cardiopulmonary disease process is seen. Electronically Signed: Mendoza Walters MD at 21:04 EDT , Service support , CC: Poli Mendieta MD; Joe Severino DO Chiropractor Sole Practitioner: Signed PULMONARY VISIT REPORT Observed: 04/06/2018 Status: F Source: [place]S 11:55 AM [facility] [address] [place] [address] OFFICE VISIT Date of Service: 04/06/18 MR#: [id number] Acct: [id number] Name: MILAGROS STEVENSON Rep #: [id number] : 1935 Provider: Meseret Sommers Age/Sex: 82/F Location: [facility] Status: Signed Assessment AND Plan 1. Shortness of breath R06.02 Plan Significantly improved since the institution of Anoro. No medication changes at this time. Prescription provided for the medication, and included 6 refills. Follow-up with Dr. Mosley in 6 months. The patient does report she plans to follow-up with rheumatology as previously instructed. She has been encouraged to contact the office with any new or worsening symptoms in the meantime. The patient conveys understanding. Plan Detail Other Medications New: Follow Up 6 Months (DMB) HPI 1 M FU: Chief Complaint: Shortness of breath HPI Comments Details: This patient presents to the office today to follow- up after recently being started on a new medication. She is ambulatory and currently wearing nasal cannula oxygen. She has not been seen in the ED urgent care for respiratory illnesses since her last office visit. She has not required antibiotics or prednisone for any breathing problems. She has been compliant with Anoro daily. She reports that since the [place] of the Anoro she has noticed a significant decrease in her dyspnea on exertion. She reports that she had samples to provide her with 28 days supply, however she ran out 4 days ago. She states that since she ran out of the medication she has noticed a return of her shortness of breath on exertion. She was quite pleased with her response to the medication. Currently she does not experience any wheezing, chest tightness, chest heaviness, cough, sputum production or hemoptysis. She also denies any chest pain or palpitations. She does continue to experience some lower extremity edema. She denies any fever, chills or body aches. See complete review of systems. She denies any medication side effects such as sore throat or hoarseness. She rinses her mouth out after each use, even though it is not required of this medication. Intake Vital Signs04/06/18 Height 5 ft 6 in 04/06/18 Weight: 254 lb 04/06/18 Body Mass Index (BMI) 41.0 Intake Visit Reasons: 1 M FU Chief Complaint: Shortness of breath Complaint Clerk Required: No DME Vendor: Ana Rosa Accompanied by: Self Is patient in pain?: No Allergies clindamycin [From Cleocin] Allergy (Verified 04/06/18 11:00) Unknown oxycodone HCl [From OxyContin] Allergy (Verified 04/06/18 11:00) Anaphylaxis Sulfa (Sulfonamide Antibiotics) Allergy (Verified 04/06/18 11:00) Anaphylaxis vancomycin Allergy (Verified 04/06/18 11:00) Hives guaifenesin [From Entex LA] Adverse Reaction (Verified 04/06/18 11:00) Unknown phenylephrine [From Entex LA] Adverse Reaction (Verified 04/06/18 11:00) Unknown phenylpropanolamine [From Entex LA] Adverse Reaction (Verified 04/06/18 11:00) Unknown BETA BLOCKERS Adverse Reaction (Uncoded 04/06/18 11:00) Unknown Medications Aspirin 325 mg PO DAILY@0800 04/04/15 [History Confirmed 04/06/18] Estrogens, Conjugated [Premarin] 0.3 mg PO UD 04/04/15 [History Confirmed 04/06/18] Hydrochlorothiazide [Hctz] 25 mg PO DAILY 04/04/15 [History Confirmed 04/06/18] MedroxyPROGESTERone [Provera] 2.5 mg PO UD 05/18/15 [History Confirmed 04/06/18] Felodipine [Plendil] 10 mg PO DAILY 12/02/17 [History Confirmed 04/06/18] Oxygen, Home [Home Oxygen] 2 lpm NASAL CONT #1 unit 12/06/17 [Rx Confirmed 04/06/18] Hydrocodone Bitart/Apap 5-325 [[place] 5MG-325MG] 1 tab PO Q4H PRN PRN 2 Days #10 tab 03/11/18 [Rx Confirmed 04/06/18] umeclidinium 62.5 mcg-vilanterol 25 mcg/actuation powdr for inhalation 1 inh INHALATION Q24H 04/06/18 [History Confirmed 04/06/18] umeclidinium 62.5 mcg-vilanterol 25 mcg/actuation powdr for inhalation 1 inh INHALATION Q24H #60 ea 04/06/18 [Rx Confirmed 04/06/18] PFSH Medical History Acute respiratory failure with hypoxia (Acute) Obesity, morbid, BMI 40.0-49.9 (Chronic) History of tobacco use (Chronic) Gout (Chronic) Hypoxia (Chronic) COPD exacerbation (Chronic) Hypertension (Chronic) History of TIA (transient ischemic attack) (Chronic) History of kidney cancer (Chronic) CKD (chronic kidney disease) (Chronic) SOB (shortness of breath) (Acute) Acute sinusitis (Acute) Biceps tendonitis (Acute) Biliary colic (Acute) Cancer of right kidney (Acute) Complete AV block (Acute) Cough (Acute) Disorder of bone density and structure, unspecified (Acute) Gallstones (Acute) Impingement syndrome of left shoulder (Acute) Influenza A (Acute) Left rotator cuff tear (Acute) Osteoarthritis of left shoulder (Acute) Skin neoplasm (Acute) Strain of muscle(s) and tendon(s) of the rotator cuff of left shoulder, initial encounter (Acute) DJD (degenerative joint disease) (Chronic) Kidney disease (Chronic) Stasis dermatitis (Chronic) Venous insufficiency (Chronic) Elbow fracture, right (Resolved) Surgical History H/O rotator cuff surgery (Resolved) History of appendectomy (Resolved) History of left knee replacement (Resolved) History of nephrectomy (Resolved) History of total right knee replacement (Resolved) Hx of cholecystectomy (Resolved) Hx of removal of ovary (Resolved) Family History Mother CAD (coronary artery disease) Father Colon cancer Social History Smoking Status: Former smoker alcohol intake: never substance use type: does not use Review of Systems Const CONSTITUTIONAL: Negative anorexia, body ache, chills, daytime sleepiness, fever(s), night sweats, oral thrush, stops breathing during sleep, weight loss, sleeping in chair, fatigue, weight loss, weight gain, frequent colds, seasonal allergies, other, headache(s) or orthopnea EETM Ear Nose Throat Mouth: Positive hearing normal; negative hard of hearing, hoarseness, dry mouth in morning, change in vision, itchy eyes, eye pain, swallowing Difficulty, ear pain, nose bleed, headache(s), mouth pain, nasal congestion, nasal discharge, post nasal drip, sinus pain, sinus pressure, sore throat or other Cardio Cardiovascular: Negative chest pain, chest pain at rest, chest pain with activity, irregular heart rhythm, edema, shortness of breath when lying down, palpitations, murmur or other Resp Respiratory: Positive as per HPI and shortness of breath shortness of breath: Positive with activity and worsening; negative pain with cough, wheezing, chest congestion, cough, chest tightness, pain on inspiration, inhalers, increase use of rescue inhalers, snoring, apnea or other Gastro Gastrointestional: Negative bloody stools, change in appetite, difficulty swallowing, reflux, hematemesis, melena stool, loose stool, constipation or other Genitourinary: Negative blood in urine, nocturia, pain with urination or other Musc Musculoskeletal: Negative body pain, back pain, neck pain or other Skin/Breast Skin/Breast: Negative dry skin, itching, rash, unusual bruising, breast lump or other Neuro Neurological: Negative restless legs, confusion, weakness or other Psych Psychocological: Negative abnormal sleep pattern, anxiety, thoughts of hurting self/others, hopelessness or other Lymph Lymphatic: Negative easy bleeding, easy bruising, swollen lymph nodes or other Exam Const Constitutional: Positive conversant, cooperative, in no acute respiratory distress, healthy appearing, well developed, well nourished and good hygiene Head Head: Positive normocephalic and atraumatic; negative cyanosis of lips/distal nose Eyes Eye: Positive clear conjunctiva; negative nystagmus or scleral abnormality Ears Ear: Positive hearing normal and external ears normal; negative hard of hearing Nose Nose: Positive external nose normal and no nasal discharge; negative epistaxis Mouth Mouth: Positive oral mucosae normal, no lesions, good dentition and crowded posterior oropharynx; negative post nasal drip, malodorous breath or oral thrush present Mallampati Score: III: Mallampati Score Neck Neck: Positive normal visual inspection, full ROM and trachea midline; negative lymphadenopathy, JVD or tender Chest Wall Chest: Positive normal inspection of the chest and symmetric chest movement; negative increased A/P diameter Resp lung sounds: Positive clear to auscultation, good air exchange, normal expiratory time and normal respiratory effort; negative diminished, wheezes, rhonchi, rales, dullness to percussion or wheeze present on forced exhalation Cardio Cardiac: Negative murmur, regular rate or regular rhythm GI GI: Positive normal to inspection and normal bowel sounds; negative distended Genitourinary: Positive deferred Musc Musculoskeletal: Positive steady gait and ROM normal; negative kyphosis or scoliosis Skin Pulmonary Skin Exam: Positive intact; negative rash, lesion, ulcers, erythema, scaly or dermal atrophy Pulses Pulse: Yes pulses normal x4 extremities Extremities Extremities: Yes edema Location: lower extremity location: Bilateral pitting +2, Yes capillary refill normal, No clubbing, No cyanosis Neuro Neurologic: Yes conversant, Yes no focal neuro deficits, Yes normal concentration, Yes understands questions, Yes cooperative, Yes normal cognition, Yes normal coordination Lymph Lymphatic: No lymphadenopathy, No tenderness, No cervical adenopathy, No axillary adenopathy Psych Appearance: Positive grossly normal, eye contact and well kempt Mental Status: Positive mental status grossly normal Mood: Positive congruent mood Affect: Positive normal affect Coding Level of Care Code Off vis,est,level 3 Diagnoses Shortness of breath R06.02 04/06/18 1155 <Electronically signed by Meseret CRESPO> Date Meseret CRESPO Cosigner Signature: Date (if applicable) CC: Poli Mendieta MD EMERGENCY DEPARTMENT Observed: 03/11/2018 Status: F Source: ROMEL SUMMARY 5:12 PM [facility] Medical Records Department [address] [place] [address] Emergency Department Summary 03/11/18 1356 MR#: [id number] Acct: [id number] Name: MILAGROS STEVENSON Rep #: [id number] : 1935 82 From: Zachariah Solis MD PCP: Poli Mendieta MD Status: REG ER History of Present Illness Chief Complaint: Abd Pain Informant: Patient Onset: Days - 2 Context: Onset with activity - lifting up a dog, Sudden Onset Quality: pain Location: RLQ, radiating around to R low back Current Severity: Severe Maximum Severity: Severe Worsened by: bending over, lifting leg Relieved by: lying still Associated Symptoms: no fevers, urinary or bowel sx, n/v Narrative: Patient states she has been having this pain for a year or more, and this is a similar exacerbation of it. It has been very mild, except for last year when she got it. Tests were inconclusive including test on her ovary. She had a sudden severe exacerbation 2 days ago that has been worse. - Past Medical History (1) History of TIA (transient ischemic attack) Status: Chronic Comment: 1998 (2) CKD (chronic kidney disease) Status: Chronic (3) COPD exacerbation Status: Chronic (4) History of kidney cancer Status: Chronic (5) Hypertension Status: Chronic Past Medical History - Allergies and Home Meds Allergies/Adverse Reactions: Allergies clindamycin [From Cleocin] Allergy (Verified 03/11/18 10:51) Unknown oxycodone HCl [From OxyContin] Allergy (Verified 03/11/18 10:51) Anaphylaxis Sulfa (Sulfonamide Antibiotics) Allergy (Verified 03/11/18 10:51) Anaphylaxis vancomycin Allergy (Verified 03/11/18 10:51) Hives guaifenesin [From Entex LA] Adverse Reaction (Verified 03/11/18 10:51) Unknown phenylephrine [From Entex LA] Adverse Reaction (Verified 03/11/18 10:51) Unknown phenylpropanolamine [From Entex LA] Adverse Reaction (Verified 03/11/18 10:51) Unknown BETA BLOCKERS Adverse Reaction (Uncoded 03/11/18 10:51) Unknown Primary Care Physician: Poli Mendieta MD [Primary Care Provider] - Surgical History: appendectomy, - - Tonsillectomy, appendectomy, cholecystectomy, bilateral shoulder rotator cuff repair, right elbow fracture with surgery with pin in place, bilateral total knee replacement. Renal cell carcinoma. SBO. Single salpingectomy and oophorectomy for ectopic . Smoking Status: Former smoker - Family History Paternal Family History: Family History (Last Reviewed 03/02/18 @ 13:47 by Ekaterina Solo) Mother CAD (coronary artery disease) Father Colon cancer Family History: Reports: Cancer - Pancreatic CA, age 3838 years old., Diabetes, Heart Disease, Hypertension Maternal Family History: Family History (Last Reviewed 03/02/18 @ 13:47 by Ekaterina Solo) Mother CAD (coronary artery disease) Father Colon cancer Family History: Reports: Heart Disease, Hypertension Review of Systems All systems negative except as indicated Gastrointestinal: Reports: Abdominal pain. Denies: Nausea, Vomiting Musculoskeletal: Reports: Back pain Physical Exam Vital Signs/Narrative: Vital Signs 03/11/18 12:51 81 16 180/94 H 98 03/11/18 10:52 97.8 F 94 17 161/78 H 93 Inital Vital Signs reviewed: Yes General: Well nourished, Well developed, Obese Head: Normocephalic, Atraumatic Eyes: Perrl, EOMI ENT: Moist mucous membranes, No rhinorrhea Neck: Supple, Nontender Cardiovascular: Regular rate, Regular rhythm, No murmurs Respiratory: No distress, CTA bilaterally, Chest nontender Abdomen: Soft, Nondistended, Normal bowel sounds, Tender - RLQ. pain made worse w/ R hip flexion, especially against resistance, but no significant inguinal tenderness. no hernias. Back: Nontender, Normal Inspection. Negative for: CVA tenderness, Spinal tenderness Extremities: Nontender, No edema Skin: Normal color, No rash Neurological: Alert, Oriented x3, Cranial nerves II-XII grossly intact, Normal Strength, Normal Sensation Psychological: Normal affect Diagnostic/Tx/Re-eval Impressions Abdomen/Pelvis CT 03/11/18 13:55 IMPRESSION: Sigmoid diverticulosis. Electronically Signed: Terrell Sloano MD at 14:58 EDT Tel [phone], Service support , 03/11/18 13:55 Abdomen/Pelvis without Cont [CT] Stat Laboratory Results WBC 7.4 (4.4-11.0) K/mm3 - Medical Decision Making Other than chronic renal insufficiency, labs are unremarkable and urine is normal. CT of the abdomen and pelvis shows no acute abnormalities to explain the patient's pain in her right lower quadrant. Diverticulosis without diverticulitis was noted, I discussed that with the patient. She was given some morphine, she said she was still hurting and wanted some [place] because that helped in the past but has a prescription, she does not want any here. Her exam is consistent with a hip flexor strain, and her history is as well, however that does not necessarily explain pain in this area for the past year. I advised her to follow-up. I have advised her that we have no evidence of anything acute or life-threatening at this time. ED Disposition - Plan for ED Patient: Disposition: Home or Assisted Living Chief Complaint: Abd Pain Diagnosis: RLQ abdominal pain, Strain of flexor muscle of right hip Instructions: ED Abdominal Pain Unkn Cause, ED Strain Abdominal Muscle Prescriptions: Hydrocodone Bitart/Apap 5-325 [[place] 5MG-325MG] 1 tablet PO Q4H PRN PRN 2 Days #10 tablet PRN Reason: Pain Referrals: Poli Mendieta MD [Primary Care Provider] - 3-5 Days if not improving What to do if you have Problems For any increased pain, shortness of breath, bleeding, nausea or vomiting, chest pain, or any unexpected problems, contact your Primary Care Provider. Call [facility] ([phone]) or report to the closest Emergency Room. Call 911 if necessary. 03/11/18 1712 <Electronically signed by Zachariah Solis MD> Date Zachariah Solis MD Cosigner Signature (If Indicated): Date CC: Poli Mendieta MD ABDOMEN/PELVIS WITHOUT Observed: 03/11/2018 Status: F Source: ROMEL CONT 1:56 PM [facility] Imaging Services [address] [place] [address] Abdomen/Pelvis without Cont MR#: [id number] Acct: [id number] Name: MILAGROS STEVENSON Rep #: [id number] : 1935 F 82 From: Terrell Solano MD PCP: Poli Mendieta MD Status: REG ER Study: Abdomen/Pelvis without Cont Date of Exam: 03/11/18 Exam# [id number] Ordering Dr: Zachariah Solis MD STUDY: CT ABDOMEN AND PELVIS WITHOUT CONTRAST REASON FOR EXAM: Female, 82 years old. Right flank pain and right lower quadrant pain. RADIATION DOSAGE (If Supplied By Facility): CTDIvol = ( 24.18 ) mGy, DLP = ( 1165.76 ) mGycm TECHNIQUE: Transaxial images were obtained from the dome of the diaphragm to the symphysis pubis without oral contrast, and without intravenous contrast. Sagittal and coronal images were reconstructed. Individualized dose optimization techniques were used for this CT. COMPARISON: None. FINDINGS: Increased interstitial markings at the lung bases with subpleural blebs suggestive of a chronic bibasilar scarring. Coronary artery calcification. Normal liver. There are surgical clips in the gallbladder fossa consistent with a prior cholecystectomy. Normal spleen. Normal pancreas. Normal bilateral adrenal glands. Normal right kidney. Normal left kidney. Normal visualized stomach. Normal small intestine. There are multiple colonic diverticula consistent with diverticulosis. There are surgical clips in the region of the appendix consistent with a prior appendectomy. There is diffuse atherosclerotic calcification of the abdominal aorta, without a demonstrated aneurysm. Normal inferior vena cava. Normal retroperitoneum. Normal urinary bladder. Normal abdominal wall. There are diffuse degenerative changes of the visualized lumbar spine. Minimal anterior listhesis of L4 on L5 most likely secondary to facet joint osteoarthritis. CT/Abdomen/Pelvis without Cont IMPRESSION: Sigmoid diverticulosis. Electronically Signed: Terrell Solano MD at 14:58 EDT Tel [phone], Service support , CC: Poli Mendieta MD; ZACHARIAH SOLIS MD Chiropractor Sole Practitioner: Signed URINALYSIS, COMPLETE Collected: 03/11/2018 Status: F Source: [place] 1:45 PM [facility] Order Comment: How was Urine Obtained? LADLE LINER HELPER TO SPECIFY TYPE CODE TESTS RESULT OUT OF RANGE REFERENCE UNITS LAB L400.3000 Yellow COLOR Normal Yellow LAB L400.3050 Clear Normal CLARITY Clear LAB L400.3200 Normal mg/dl Normal GLUCOSE, UR Normal LAB L400.3300 Negative mg/dL Normal BILIRUBIN URINE Negative LAB L400.3400 Negative mg/dl Normal KETONE UR Negative LAB L400.3465 1.002-1.030 Normal SP.GR. DIPSTX 1.020 LAB L400.3550 5.0 - 8.0 pH UR Normal 6.0 LAB L400.3600 Negative mg/dl High PROT DIPSTX 100 LAB L400.3700 Normal mg/dl Normal UROBILI Normal LAB L400.3750 Negative Normal NITRITE UR Negative LAB L400.3780 Negative /ul Normal OCCULT BLOOD-UR Negative LAB L400.3800 Negative /ul LEUK Normal ESTERASE Negative LAB L400.4050 0-5 /hpf WBC Normal 0-5 SEEN LAB L400.4100 0-5 /hpf Normal RBC-UA 0-5 SEEN LAB L400.4150 5-10 /hpf SQUAM Normal EPI 0-5 SEEN LAB L400.4300 None Seen /hpf 0 Normal BACTERIA SEEN LAB L400.4350 <or=2+ /hpf Normal MUCUS, URINE RARE LAB L400.4400 0-5 /lpf Normal HYALINE CAST 0-5 SEEN Performed By: #### L400.0001 #### [facility] [place], [address] CBC W/DIFF, AUTOMATED Collected: 03/11/2018 Status: F Source: ROMEL 11:25 AM [facility] TYPE CODE TESTS RESULT OUT OF RANGE REFERENCE UNITS LAB L100.1000 4.4-11.0 K/mm3 Normal WBC 7.4 LAB L100.1200 4.2-5.4 M/mm3 Normal RBC 5.13 LAB L100.1300 12.0-15.0 g/dl Normal HGB 14.5 LAB L100.1400 37-47 % Normal HCT 45.4 LAB L100.1500 81-99 fL Normal MCV 88.5 LAB L100.1600 27.0-32.0 pg Normal MCH 28.3 LAB L100.1700 32-36 g/gl Low MCHC 31.9 LAB L100.1810 11.6-14.6 % High RDW CV 15.0 LAB L100.1820 35.1-43.9 fl High RDW SD 48.5 LAB L100.1900 150-450 K/mm3 Normal PLT 247 LAB L100.2000 6.2-12.0 fl Normal MPV 10.1 LAB L100.2100 47-70 % High NEUT% 70.2 LAB L100.2200 19-41 % Normal LY% 19.2 LAB L100.2300 0-10 % Normal MONO% 7.2 LAB L100.2400 0-5 % Normal EO% 2.8 LAB L100.2500 0-1 % Normal BASO% 0.5 LAB L100.2550 0.0-0.9 % Normal IM GRAN % 0.100 Result Comment: IG% - Immature Granulocytes (promyelocytes, myelocytes and metamyelocytes) > 1% indicates that a LEFT SHIFT is Present. LAB L100.2620 2.0-7.7 X10 3/uL Normal Absolute Neut 5.2 LAB L100.2720 0.83-4.51 X10 3/ul Normal Absolute Lymph 1.42 Performed By: #### L100.0100 #### [facility] [place], [address] BASIC METABOLIC Collected: 03/11/2018 Status: F Source: ROMEL PROFILE (BMP) 11:25 AM [facility] TYPE CODE TESTS RESULT OUT OF RANGE REFERENCE UNITS LAB L501.0100 74-106 mg/dL High GLU 117 Result Comment: Fasting Glucose result from 100 to 125 mg/dL suggests IMPAIRED HOMEOSTASIS per A.D.A. criteria. Please note revised GLUCOSE reference range effective 2017. LAB L501.1000 7-18 mg/dL High BUN 33 LAB L501.1100 0.55-1.02 mg/dL High CREAT,SERUM 1.49 Result Comment: The validity of the calculated GFR AND GFRAA in patients over 70 years has not been determined. Clinical correlation is essential. LAB L501.1110 >60 mL/min Low EST GFR 36 Result Comment: Non- GFR Calc LAB L501.1115 >60 mL/min Low EST GFR - AA 43 Result Comment: GFR Calc LAB L501.1255 ml/min Normal Estimated CRCL 28.19 LAB L501.1300 10-20 RATIO High BUN/CRE 22.1 LAB L501.2200 8.5-10 mg/dL Normal .1 CA 8.9 LAB L501.5300 136-14 mmol/L Normal 5 NA 141 LAB L501.5600 3.5-5. mmol/L Normal 1 K 4.7 Result Comment: Moderate Hemolysis, Result may be falsely increased. LAB L501.5900 98-107 mmol/L High CL 110 LAB L501.6100 21.0-32.0 mmol/L Normal CO2 25.0 LAB L501.6200 5-15 Normal 6 GAP Performed By: #### L500.2500 #### [facility] [address] [facility] [facility]. [place], [place], [address] PULMONARY VISIT REPORT Observed: 03/02/2018 Status: F Source: [place] 2:43 PM [facility] Pulmonary Medicine of [address] [place] [address] OFFICE VISIT Date of Service: 03/02/18 MR#: [id number] Acct: [id number] Name: MILAGROS STEVENSON Jaycee Rep #: [id number] : 1935 Provider: Abdiel Mosley D.O. Age/Sex: 82/F Location: [facility] Status: Signed Assessment AND Plan 1. Chronic hypoxemic respiratory failure J96.11 Plan The patient's recent 6 minute walk test did reveal the need for 4 L/min supplemental oxygen with exertion. However, the patient is currently only utilizing 2 L/min. New orders for supplemental oxygen will be faxed to [employer]. Patient was advised to increase her supplemental flow rate to 4 L/min accordingly. In addition, the patient's recent CT chest did reveal fibrotic changes in the lung bases bilaterally. The etiology for these changes is a bit unclear. Nevertheless, a rheumatologic panel obtained in the hospital did reveal an elevated rheumatoid factor and atypical pANCA titer. Therefore, the patient will be referred to rheumatology for further evaluation. Orders Referrals: 2. COPD (chronic obstructive pulmonary disease) J44.9 Plan Patient did have evidence of a mild obstructive ventilatory impairment on her recent PFTs. She was discharged from the hospital on Symbicort. Plan at this time will include a transition to Anoro and as needed albuterol. Patient was provided with samples and instructions on inhaler use in technique was reviewed. The patient will follow up with our nurse practitioner in 1 month to assess her symptom response to therapy. 3. Hypersomnia G47.10 Plan The patient was referred at her last office visit to undergo a polysomnogram, but has refused to undergo testing due to concerns of her claustrophobia. I explained to the patient the importance of proceeding with testing to address any underlying sleep disordered breathing, given the patient's pulmonary hypertension noted on echocardiogram. The patient is in agreement to think about it a bit more before making a final decision. This issue should be readdressed at her follow-up office visit. Plan Detail Other Medications Discontinued: budesonide-formoterol 160-4.5 mcg/actuation Discontinued R2 puffs Inhalation BID copd stephanie: Order Changed Follow Up 1 Month ([facility]) HPI HPI Comments Details: The patient is an 82-year-old female who presents to the clinic today for a routine scheduled follow-up office visit. The patient has a history of chronic hypoxemic respiratory failure, mild COPD, heart failure with preserved ejection fraction and pulmonary hypertension. CT of the chest completed on December 03 showed stable emphysematous changes along the lower lobe fibrosis, stable mediastinal lymph nodes. A 6 minute walk test completed in January 2018 revealed the need for 4 L/min of supplemental oxygen with exertion. Pulmonary function testing completed in January 2018 revealed evidence of a partially reversible mild large airways obstructive ventilatory defect with associated hyperinflation and disproportionate reduction in diffusing capacity. Patient does have a smoking history that includes 0.5 packs per day 15 years, having quit completely in 1994. Of note, during the patient's previous hospitalization, she did have an elevated rheumatoid factor and atypical pANCA titer. Following her discharge from the hospital, the patient was started on Symbicort and scheduled Ventolin. Although she was referred to undergo a polysomnogram, the patient never completed the testing. She stated that she was too claustrophobic to wear a mask while sleeping. However, she states that she is willing to think about it a bit longer before making a final conclusion about undergoing a polysomnogram. The patient was never diagnosed with asthma in childhood. Her weight has been stable. She denies fevers, chills or night sweats. She denies chest pain, dizziness or lightheadedness. Intake Vital Signs03/02/18 Height 56 ft 03/02/18 Weight: 260 lb 03/02/18 Body Mass Index (BMI) 0.4 Intake Visit Reasons: 2 M FU Chief Complaint: Shortness of breath Accompanied by: Self Allergies clindamycin [From Cleocin] Allergy (Verified 03/02/18 13:46) Unknown oxycodone HCl [From OxyContin] Allergy (Verified 03/02/18 13:46) Anaphylaxis Sulfa (Sulfonamide Antibiotics) Allergy (Verified 03/02/18 13:46) Anaphylaxis vancomycin Allergy (Verified 03/02/18 13:46) Hives guaifenesin [From Entex LA] Adverse Reaction (Verified 03/02/18 13:46) Unknown phenylephrine [From Entex LA] Adverse Reaction (Verified 03/02/18 13:46) Unknown phenylpropanolamine [From Entex LA] Adverse Reaction (Verified 03/02/18 13:46) Unknown BETA BLOCKERS Adverse Reaction (Uncoded 03/02/18 13:46) Unknown Medications Aspirin 325 mg PO DAILY@0800 04/04/15 [History Confirmed 03/02/18] Estrogens, Conjugated [Premarin] 0.3 mg PO UD 04/04/15 [History Confirmed 03/02/18] Hydrochlorothiazide [Hctz] 25 mg PO DAILY 04/04/15 [History Confirmed 03/02/18] MedroxyPROGESTERone [Provera] 2.5 mg PO UD 05/18/15 [History Confirmed 03/02/18] Albuterol Inhaler [Ventolin Hfa] 2 puff INHALATION Q4H PRN PRN #1 inhaler 09/11/16 [Rx Confirmed 03/02/18] Hydrocodone Bitart/Apap 5-325 [[place] 5/325] 1 - 2 tab PO Q4H PRN PRN #20 tab 12/23/16 [Rx Confirmed 03/02/18] Felodipine [Plendil] 10 mg PO DAILY 12/02/17 [History Confirmed 03/02/18] Oxygen, Home [Home Oxygen] 2 lpm NASAL CONT #1 unit 12/06/17 [Rx Confirmed 03/02/18] Prednisone [Deltasone] 40 mg PO DAILY #10 tab 12/06/17 [Rx Confirmed 03/02/18] [facility] Medical History Acute respiratory failure with hypoxia (Acute) Obesity, morbid, BMI 40.0-49.9 (Chronic) History of tobacco use (Chronic) Gout (Chronic) Hypoxia (Chronic) COPD exacerbation (Chronic) Hypertension (Chronic) History of TIA (transient ischemic attack) (Acute) History of kidney cancer (Chronic) CKD (chronic kidney disease) (Chronic) SOB (shortness of breath) (Acute) Acute sinusitis (Acute) Biceps tendonitis (Acute) Biliary colic (Acute) Cancer of right kidney (Acute) Complete AV block (Acute) Cough (Acute) Disorder of bone density and structure, unspecified (Acute) Gallstones (Acute) Impingement syndrome of left shoulder (Acute) Influenza A (Acute) Left rotator cuff tear (Acute) Osteoarthritis of left shoulder (Acute) Skin neoplasm (Acute) Strain of muscle(s) and tendon(s) of the rotator cuff of left shoulder, initial encounter (Acute) DJD (degenerative joint disease) (Chronic) Kidney disease (Chronic) Stasis dermatitis (Chronic) Venous insufficiency (Chronic) Elbow fracture, right (Resolved) Surgical History H/O rotator cuff surgery (Resolved) History of appendectomy (Resolved) History of left knee replacement (Resolved) History of nephrectomy (Resolved) History of total right knee replacement (Resolved) Hx of cholecystectomy (Resolved) Hx of removal of ovary (Resolved) Family History Mother CAD (coronary artery disease) Father Colon cancer Social History Smoking Status: Former smoker alcohol intake: never substance use type: does not use Review of Systems Const CONSTITUTIONAL: Negative anorexia, body ache, chills, daytime sleepiness, fever(s), night sweats, oral thrush, stops breathing during sleep, weight loss, sleeping in chair, fatigue, weight loss, weight gain, frequent colds, seasonal allergies, other, headache(s) or orthopnea EETM Ear Nose Throat Mouth: Positive hearing normal; negative hard of hearing, hoarseness, dry mouth in morning, change in vision, itchy eyes, eye pain, swallowing Difficulty, ear pain, nose bleed, headache(s), mouth pain, nasal congestion, nasal discharge, post nasal drip, sinus pain, sinus pressure, sore throat or other Cardio Cardiovascular: Negative chest pain, chest pain at rest, chest pain with activity, irregular heart rhythm, edema, shortness of breath when lying down, palpitations, murmur or other Resp Respiratory: Positive shortness of breath shortness of breath: Positive with activity and inhalers; negative as per HPI, pain with cough, wheezing, chest congestion, cough, chest tightness, pain on inspiration, increase use of rescue inhalers, snoring, apnea or other Gastro Gastrointestional: Negative bloody stools, change in appetite, difficulty swallowing, reflux, hematemesis, melena stool, loose stool, constipation or other Genitourinary: Negative blood in urine, nocturia, pain with urination or other Musc Musculoskeletal: Negative body pain, back pain, neck pain or other Skin/Breast Skin/Breast: Negative dry skin, itching, rash, unusual bruising, breast lump or other Neuro Neurological: Negative restless legs, confusion, weakness or other Psych Psychocological: Negative abnormal sleep pattern, anxiety, thoughts of hurting self/others, hopelessness or other Lymph Lymphatic: Negative easy bleeding, easy bruising, swollen lymph nodes or other Exam Const Constitutional: Positive conversant, cooperative, in no acute respiratory distress, well developed, well nourished, good hygiene and obese Head Head: Positive normocephalic and atraumatic; negative cyanosis of lips/distal nose Eyes Eye: Positive clear conjunctiva; negative nystagmus or scleral abnormality Ears Ear: Positive hearing normal and external ears normal; negative hard of hearing Nose Nose: Positive external nose normal; negative epistaxis Mouth Mouth: Positive oral mucosae normal and posterior oropharynx is adequate; negative no lesions or post nasal drip Mallampati Score: III: Mallampati Score Neck Neck: Positive normal visual inspection and trachea midline; negative lymphadenopathy Chest Wall Chest: Positive symmetric chest movement Normal AP diameter. Resp lung sounds: Positive clear to auscultation and good air exchange; negative wheezes, rhonchi or rales Cardio Cardiac: Positive regular rate, regular rhythm, S1 normal and S2 normal; negative rub, gallop or murmur GI GI: Positive normal bowel sounds and obese Soft without distention Genitourinary: Positive deferred Musc Musculoskeletal: Positive steady gait Skin Pulmonary Skin Exam: Positive intact; negative lesion, ulcers, dermal atrophy or rash Pulses Pulse: Yes Pedal pulses present: Extremities Extremities: No clubbing, No cyanosis, No edema Neuro Neurologic: Yes conversant, Yes no focal neuro deficits, Yes cooperative Lymph Lymphatic: No lymphadenopathy Psych Appearance: Positive grossly normal Mental Status: Positive mental status grossly normal Mood: Positive congruent mood Affect: Positive normal affect Coding Level of Care Code Off vis,est,level 4 Diagnoses Chronic hypoxemic respiratory failure J96.11 COPD (chronic obstructive pulmonary disease) J44.9 Hypersomnia G47.10 03/02/18 1443 <Electronically signed by Abdiel Mosley DO> Date Abdiel Mosley DO Cosigner Signature: Date (if applicable) CC: Poli Mendieta MD 6 MINUTE WALK TEST Observed: 01/27/2018 Status: F Source: [place] 11:32 AM [facility] Pulmonary Services/Neurology [address] [place] [address] MR#: [id number] Acct: [id number] Name: MILAGROS STEVENSON Rep #: [id number] : 1935 82 From: Abdiel Mosley DO Referring Dr: Meseret Sommers [employer] Date: Ordering Dr: Sex: F C Location: PSN PSN 6 Minute Walk Test - 6 Minute Walk Test 6 Minute Walk Test: 6 Minute Walk Test PSN:6-Minute Walk Test Start: 01/26/18 13:09 Freq: Status: Active Protocol: RESP.6MINW Document 01/26/18 12:45 [facility] (Rec: 01/26/18 13:14 [facility] [id number]) 6 Minute Walk Test Date Performed 01/26/18 Time Performed 12:45 Height 5 ft 6.5 in Weight: 249 lb Weight in Pounds 249.[address]: Meseret Sommers Assistive device used: None Pre-test Oxygen Delivery Method Room Air Pulse Ox (%) 93 Pulse Rate (60-100 beats/min) 80 Dyspnea Chrystal Scale (0-10) 0 Exertion Chrystal Scale (6-20) 6 1st minute Oxygen Delivery Method Room Air Pulse Ox (%) 84 Pulse Rate (60-100 beats/min) 108 H Reported Symptoms Increased Work of Breathing 2nd minute Oxygen Flow Rate (L/min) (L/min) 2 Oxygen Delivery Method Nasal Cannula Pulse Ox (%) 92 Pulse Rate (60-100 beats/min) 105 H Number of Rests Taken 1 Reported Symptoms Increased Work of Breathing 3rd minute Oxygen Flow Rate (L/min) (L/min) 2 Oxygen Delivery Method Nasal Cannula Pulse Ox (%) 87 Pulse Rate (60-100 beats/min) 104 H Number of Rests Taken 1 Reported Symptoms Increased Work of Breathing 4th minute Oxygen Flow Rate (L/min) (L/min) 3 Oxygen Delivery Method Nasal Cannula Pulse Ox (%) 93 Pulse Rate (60-100 beats/min) 106 H Number of Rests Taken 1 Reported Symptoms Increased Work of Breathing 5th minute Oxygen Flow Rate (L/min) (L/min) 3 Oxygen Delivery Method Nasal Cannula Pulse Ox (%) 90 Pulse Rate (60-100 beats/min) 111 H 6th minute Oxygen Flow Rate (L/min) (L/min) 3 Oxygen Delivery Method Nasal Cannula Pulse Ox (%) 86 Pulse Rate (60-100 beats/min) 117 H Number of Rests Taken 0 Reported Symptoms Increased Work of Breathing Post-test Oxygen Flow Rate (L/min) (L/min) 4 Oxygen Delivery Method Nasal Cannula Pulse Ox (%) 96 Pulse Rate (60-100 beats/min) 90 Dyspnea Chrystal Scale (0-10) 3 Exertion Chrystal Scale (6-20) 14 Reported Symptoms Increased Work of Breathing Full Laps Walked 6 Partial Lap, Number of Tiles Walked 34 Total Distance Walked (ft) 388 - Interpretation Interpretation: The patient ambulated 388 feet over the course of 6 minutes beginning on room air without assistive devices or breaks. Pretesting oxygen saturation was noted to be 93% on room air. With ambulation, the patient desaturated to 84% at minute 1 of testing. 2 L/min of supplemental oxygen was applied. However, the patient again desaturated to 87% at minute 3 of testing. The flow rate was increased to 3 L/min. Nevertheless, the patient again desaturated to 86% at minute 6 of testing, requiring an increase in supplemental flow rate to 4 L/min. This test represents impaired walk distance and significant exertional oxygen desaturation, requiring supplemental oxygen. - Recommendations Recommendations: 4 L/min of supplemental oxygen should be utilized with exertion. 01/27/18 1132 <Electronically signed by Abdiel Mosley DO> Date Abdiel Mosley DO CC: Date Dictated: 01/27/18 112 Date Transcribed: 01/27/181128 Chiropractor Sole Practitioner: Abdiel Mosley DO Signed PULMONARY FUNCTION Observed: 01/20/2018 Status: F Source: [place] REPORT COMP 5:47 AM [facility] Pulmonary Services/Neurology [address] [place] [id number] MR#: [id number] Acct: [id number] Name: MILAGROS STEVENSON Rep #: [id number] : 1935 82 From: Yayo Wilson MD Referring Dr: Meseret Sommers [employer] Status: REG CLI Ordering Dr: Date: Location: [facility] Sex: F C COMPLETE PULMONARY FUNCTION TEST INTERPRETATION Brief HPI: Patient is an 82 year old female, currently under the care of Meseret Sommers, who presents to [facility] for complete pulmonary function tests secondary to diagnosis of COPD. Respiratory therapist reports good effort and reproducible results. Interpretation: Forced expiration spirometry shows a mild large airways obstructive ventilatory defect with an FEV1 of 96% predicted. There is a significant bronchodilator response in FEV1 by ATS criteria. Spirograms are of good quality and plateau slowly, indicating slowly emptying areas of the lungs. The respiratory flow volume loop shows decreased expiratory flow rates at all lung volumes consistent with airway obstruction. Lung volumes by body plethysmography show an elevated total lung capacity at 4.63 L, 139% predicted. All other lung volumes are increased symmetrically. Diffusion capacity by carbon monoxide is decreased at 8.6% predicted. The airway resistance is normal. No previous pulmonary function tests were available for review. Impression: Partially reversible mild large airways obstructive ventilatory defect resulting in hyperinflation. Diffusing capacity is reduced out of proportion. Consideration for asthma/CHF or COPD/asthma overlap syndrome. 01/20/18 0547 <Electronically signed by Yayo Wilson MD> Date Yayo Wilson MD CC: Poli Mendieta MD; Yayo Wilson MD; Meseret Sommers Date Dictated: 01/20/1844 Date Transcribed: 01/20/18543 Chiropractor Sole Practitioner: MAURICIO Signed PULMONARY VISIT REPORT Observed: 12/25/2017 Status: F Source: [place] 1:27 PM [facility] Pulmonary Medicine of [address] [place] [address] OFFICE VISIT Date of Service: 12/25/17 MR#: [id number] Acct: [id number] Name: STEVENSONCAN HENRYRA Champion Rep #: [id number] : 1935 Provider: Meseret Sommers Age/Sex: 82/F Location: [facility] Status: Signed Assessment AND Plan 1. Daytime hypersomnia G47.19 Status Acute Plan New. She has several symptoms consistent with possible obstructive sleep apnea. Discussed the pathophysiology of obstructive sleep apnea, as well as that if it is in fact encased her supplemental oxygen she is wearing at night is not being helpful. She is agreeable to testing. She may delay the testing somewhat given the fact that she is having her home worked up for radon exposure. Plan to follow-up with Dr. Mosley in 2 months. Orders Orders: 2. COPD exacerbation J44.1 Status Chronic Plan Improved. She does not appear to be in a continued exacerbation of her COPD. No change in maintenance medications at this time. Pulmonary function test prior to a 2 month follow-up with Dr. Mosley. Will also repeat a pulmonary stress test to see if she continues to require supplemental oxygen prior to that follow-up. 3. Acute respiratory failure with hypoxia J96.01 Status Acute Plan New. May be temporary. Plan to repeat pulmonary stress test prior to her follow-up with Dr. Mosley. If she is unable to come off of the supplemental oxygen at that repeat test, would plan to repeat the pulmonary stress test approximately 3 months after compliance with pressure support therapy (if indicated) is obtained. Plan Detail Other Orders Orders: Follow Up 2 Months (DMB) [facility] Hospital FU: Chief Complaint: Shortness of breath [facility] Comments Details: This is a 82 year old F, currently under the care of Poli Mendieta, here to follow up after a recent hospitalization at [facility], from December 02 - December 06, 2017 for acute hypoxic respiratory failure secondary acute exacerbation of suspected COPD and probable lung fibrosis. 19 pages of hospital documentation was reviewed, and found to be significant for chest x-ray completed on December 02 that showed no acute cardiopulmonary process, CT of the chest completed on December 03 showed stable emphysematous changes along the lower lobe fibrosis, stable mediastinal lymph nodes. Repeat chest x-ray completed on December 05 showed no significant change and no new infiltrates.Upon discharge, the patient completed a 12 day course of prednisone and was discharged on supplemental oxygen. Today, she presents the office ambulatory and currently wearing nasal cannula oxygen. She continues to experience shortness of breath that she believes has worsened over the past 3 weeks. The supplemental oxygen is new since her recent hospitalization. She is using 2 L/min with ambulation and with sleep. She has persistent daytime hypersomnia. She does not feel rested upon arising in the morning. She is napping frequently and feeling tired all of the time. Currently, she denies any cough, sputum production or hemoptysis. She denies any wheezing, chest tightness, chest pain or palpitations. She does report experiencing mouth sores that have been present for the past several weeks. She also reports a metallic taste in her mouth that is not new. See complete review of systems. He is compliant with Symbicort 2 puffs twice daily. She does rinse her mouth out after each use. She denies rash or hoarseness. She is using her nebulizer 4 times daily. She reports relief of her shortness of breath with the use of her nebulizer. Intake Vital Signs12/25/17 Height 5 ft 6 in 12/25/17 Weight: 260 lb 12/25/17 Body Mass Index (BMI) 41.9 Intake Visit Reasons: Hospital FU Chief Complaint: COPD Exacerbation DME Vendor: Ana Rosa Accompanied by: Self Allergies clindamycin [From Cleocin] Allergy (Verified 12/02/17 13:59) Unknown oxycodone HCl [From OxyContin] Allergy (Verified 12/02/17 13:59) Anaphylaxis Sulfa (Sulfonamide Antibiotics) Allergy (Verified 12/02/17 13:59) Anaphylaxis vancomycin Allergy (Verified 12/02/17 13:59) Hives guaifenesin [From Entex LA] Adverse Reaction (Verified 12/02/17 13:59) Unknown phenylephrine [From Entex LA] Adverse Reaction (Verified 12/02/17 13:59) Unknown phenylpropanolamine [From Entex LA] Adverse Reaction (Verified 12/02/17 13:59) Unknown BETA BLOCKERS Adverse Reaction (Uncoded 12/02/17 13:59) Unknown Medications Aspirin 325 mg PO DAILY@0800 04/04/15 [History Confirmed 12/02/17] Estrogens, Conjugated [Premarin] 0.3 mg PO UD 04/04/15 [History Confirmed 12/02/17] Hydrochlorothiazide [Hctz] 25 mg PO DAILY 04/04/15 [History Confirmed 12/02/17] MedroxyPROGESTERone [Provera] 2.5 mg PO UD 05/18/15 [History Confirmed 12/02/17] Albuterol Inhaler [Ventolin Hfa] 2 puff INHALATION Q4H PRN PRN #1 inhaler 09/11/16 [Rx Confirmed 12/02/17] Hydrocodone Bitart/Apap 5-325 [[place] 5/325] 1 - 2 tab PO Q4H PRN PRN #20 tab 12/23/16 [Rx Confirmed 12/02/17] Budesonide/Formoterol 160/4.5 [Symbicort 160/4.5 Mcg Inhaler (SP)] 2 puff INHALATION BID 12/02/17 [History Confirmed 12/02/17] Felodipine [Plendil] 10 mg PO DAILY 12/02/17 [History Confirmed 12/02/17] Oxygen, Home [Home Oxygen] 2 lpm NASAL CONT #1 unit 12/06/17 [Rx] Prednisone [Deltasone] 40 mg PO DAILY #10 tab 12/06/17 [Rx] [facility] Medical History Acute respiratory failure with hypoxia (Acute) Obesity, morbid, BMI 40.0-49.9 (Chronic) History of tobacco use (Chronic) Gout (Chronic) Hypoxia (Chronic) COPD exacerbation (Chronic) Hypertension (Chronic) History of TIA (transient ischemic attack) (Acute) History of kidney cancer (Chronic) CKD (chronic kidney disease) (Chronic) SOB (shortness of breath) (Acute) Acute sinusitis (Acute) Biceps tendonitis (Acute) Biliary colic (Acute) Cancer of right kidney (Acute) Complete AV block (Acute) Cough (Acute) Disorder of bone density and structure, unspecified (Acute) Gallstones (Acute) Impingement syndrome of left shoulder (Acute) Influenza A (Acute) Left rotator cuff tear (Acute) Osteoarthritis of left shoulder (Acute) Skin neoplasm (Acute) Strain of muscle(s) and tendon(s) of the rotator cuff of left shoulder, initial encounter (Acute) DJD (degenerative joint disease) (Chronic) Kidney disease (Chronic) Stasis dermatitis (Chronic) Venous insufficiency (Chronic) Elbow fracture, right (Resolved) Surgical History H/O rotator cuff surgery (Resolved) History of appendectomy (Resolved) History of left knee replacement (Resolved) History of nephrectomy (Resolved) History of total right knee replacement (Resolved) Hx of cholecystectomy (Resolved) Hx of removal of ovary (Resolved) Family History Mother CAD (coronary artery disease) Father Colon cancer Social History Smoking Status: Former smoker alcohol intake: never substance use type: does not use Review of Systems Const CONSTITUTIONAL: Negative anorexia, body ache, chills, daytime sleepiness, fever(s), night sweats, oral thrush, stops breathing during sleep, weight loss, sleeping in chair, fatigue, weight loss, weight gain, frequent colds, seasonal allergies, other, headache(s) or orthopnea EETM Ear Nose Throat Mouth: Positive hearing normal; negative hard of hearing, hoarseness, dry mouth in morning, change in vision, itchy eyes, eye pain, swallowing Difficulty, ear pain, nose bleed, headache(s), mouth pain, nasal congestion, nasal discharge, post nasal drip, sinus pain, sinus pressure, sore throat or other Cardio Cardiovascular: Negative chest pain, chest pain at rest, chest pain with activity, irregular heart rhythm, edema, shortness of breath when lying down, palpitations, murmur or other Resp Respiratory: Positive as per HPI and shortness of breath shortness of breath: Positive with activity; negative pain with cough, wheezing, chest congestion, cough, chest tightness, pain on inspiration, inhalers, increase use of rescue inhalers, snoring, apnea or other Gastro Gastrointestional: Negative bloody stools, change in appetite, difficulty swallowing, reflux, hematemesis, melena stool, loose stool, constipation or other Genitourinary: Negative blood in urine, nocturia, pain with urination or other Musc Musculoskeletal: Negative body pain, back pain, neck pain or other Skin/Breast Skin/Breast: Negative dry skin, itching, rash, unusual bruising, breast lump or other Neuro Neurological: Negative restless legs, confusion, weakness or other Psych Psychocological: Negative abnormal sleep pattern, anxiety, thoughts of hurting self/others, hopelessness or other Lymph Lymphatic: Negative easy bleeding, easy bruising, swollen lymph nodes or other Exam Const Constitutional: Positive conversant, cooperative, in no acute respiratory distress, healthy appearing, well developed, well nourished, good hygiene and obese Head Head: Positive normocephalic and atraumatic; negative cyanosis of lips/distal nose Eyes Eye: Positive clear conjunctiva and nystagmus; negative scleral abnormality Ears Ear: Positive hearing normal and external ears normal; negative hard of hearing Nose Nose: Positive external nose normal and no nasal discharge; negative epistaxis Mouth Mouth: Positive dentures and crowded posterior oropharynx; negative post nasal drip, oral thrush present or malodorous breath Mallampati Score: III: Mallampati Score Neck Neck: Positive normal visual inspection, full ROM, trachea midline and thick neck; negative lymphadenopathy, JVD or tender Chest Wall Chest: Positive normal inspection of the chest and symmetric chest movement; negative increased A/P diameter Resp lung sounds: Positive good air exchange, clear to auscultation, normal expiratory time and normal respiratory effort; negative rhonchi, wheezes, rales or dullness to percussion Cardio Cardiac: Positive regular rate, regular rhythm, S1 normal and S2 normal; negative murmur GI GI: Positive normal to inspection, normal bowel sounds and obese; negative distended Genitourinary: Positive deferred Musc Musculoskeletal: Positive steady gait and ROM normal; negative kyphosis or scoliosis Skin Pulmonary Skin Exam: Positive intact; negative rash, lesion, ulcers, erythema, scaly or dermal atrophy Pulses Pulse: Yes pulses normal x4 extremities Extremities Extremities: No edema, Yes capillary refill normal, No clubbing, No cyanosis Neuro Neurologic: Yes conversant, Yes no focal neuro deficits, Yes cooperative, Yes normal cognition, Yes normal concentration, Yes normal coordination, Yes understands questions Lymph Lymphatic: No lymphadenopathy, No tenderness, No cervical adenopathy, No axillary adenopathy Psych Appearance: Positive grossly normal, eye contact and well kempt Mental Status: Positive mental status grossly normal Mood: Positive congruent mood Affect: Positive normal affect Coding Level of Care Code Off vis,est,level 4 Diagnoses Daytime hypersomnia G47.19 COPD exacerbation J44.1 Acute respiratory failure with hypoxia J96.01 12/25/17 1327 <Electronically signed by Meseret CRESPO> Date Meseret CRESPO Cosigner Signature: Date (if applicable) CC: POLI MENDIETA DISCHARGE SUMMARY Observed: 12/06/2017 Status: F Source: [place] 1:38 PM [facility] RE[facility] Medical Records Department [address] [place] [address] Discharge Summary 12/06/17 1330 MR#: [id number] Acct: [id number] Name: MILAGROS STEVENSON Rep #: [id number] : 1935 82 From: Antonette Brown MD PCP: POLI MENDIETA Status: DIS IN Y Location: [facility] [id number] Discharge Date and Diagnosis Date of Admission: 12/02/17 Date of Discharge: 12/06/17 - Primary Discharge Diagnosis #1 acute hypoxic respiratory failure. #2 acute exacerbation of suspected COPD/probable lung fibrosis. - Secondary Discharge Diagnosis Chronic Problems Obesity, morbid, BMI 40.0-49.9 (Chronic) History of tobacco use (Chronic) quit 1994 Gout (Chronic) Hypoxia (Chronic) COPD exacerbation (Chronic) Hypertension (Chronic) History of TIA (transient ischemic attack) (Chronic) History of kidney cancer (Chronic) CKD (chronic kidney disease) (Chronic) Hospital Course and Treatment Imaging Results: Clinical Impression(s) from Imaging Studies Chest X-Ray 12/02/17 14:22 IMPRESSION: Degenerative changes, as described above. No demonstrated acute cardiopulmonary process. No significant interval change Electronically Signed: Delmer aBrrett MD at 15:33 EDT , Service support , Chest CT 12/03/17 11:51 IMPRESSION: Stable emphysematous changes along with lower lobe fibrosis. There are coronary arterial calcifications. Stable mediastinal lymph nodes. Electronically Signed: Adonay Martinez MD at 16:19 EDT , Service support , Chest X-Ray 12/05/17 07:28 IMPRESSION: No significant change. No new infiltrate is seen. Electronically Signed: Mazin Jiménez MD at 8:51 EDT Tel , Service support , Dr. Mosley, pulmonology. Operations: None Procedures: 2-D Echocardiogram, EKG Summary of Care Provided: The patient is a 82 year old F admitted because of shortness of breath, cough and wheezing and she was found to have acute hypoxic respiratory failure attributed to acute COPD exacerbation as well as probable lung fibrosis. Chest x-ray revealed interstitial fibrotic changes of both lungs. CT scan chest without contrast revealed diffuse emphysematous changes with bilateral lower lobe fibrosis. She was treated with bronchodilators and IV steroids. Her blood work was remarkable for chronically elevated creatinine which was stable table. She had 2D echocardiogram done and revealed ejection fraction 60% and moderate pulmonary hypertension. With above-mentioned treatment, patient symptoms improved but she continued to have exertional shortness of breath and her pulse oximeter dropped down to less than 88%. Aggressive bronchodilation therapy, patient remained stable at rest with normal pulse ox in room air but her oxygen continued to drop upon ambulation. She did qualify for home oxygen as she is ambulatory at home and doing her activities of daily living. Pulmonology consulted and recommended to have lung function test as well as polysomnography as outpatient because of suspected obstructive sleep apnea. Patient discharged home on a fixed dose of prednisone 40 mg p.o. daily for 5 days, discharged on home oxygen at 2 L continuously, continued on her chronic home medication including Symbicort and albuterol as needed, plan to follow-up with PCP in 1 week and follow-up with pulmonology in 2 weeks for lung function test and polysomnography. Discharge Activity: Return to Normal Activity Weight Bearing Status: Weight bearing as tolerated Call your doctor if you observe: Fever of 101 or Higher, Shortness of breath, Dizziness, Fainting spells, Chest pain, Increased palpitations (irregular heartbeat), Uncontrolled pain Home Medications: Medications to take at Discharge Aspirin 325 mg PO DAILY@0800 04/04/15 Estrogens, Conjugated [Premarin] 0.3 mg PO UD 04/04/15 Hydrochlorothiazide [Hctz] 25 mg PO DAILY 04/04/15 MedroxyPROGESTERone [Provera] 2.5 mg PO UD 05/18/15 Albuterol Inhaler [Ventolin Hfa] 2 puff INHALATION Q4H PRN PRN #1 inhaler 09/11/16 Hydrocodone Bitart/Apap 5-325 [[place] 5/325] 1 - 2 tablet PO Q4H PRN PRN #20 tablet 12/23/16 Budesonide/Formoterol 160/4.5 [Symbicort 160/4.5 Mcg Inhaler (SP)] 2 puff INHALATION BID 12/02/17 Felodipine [Plendil] 10 mg PO DAILY 12/02/17 Oxygen, Home [Home Oxygen] 2 lpm NASAL CONT #1 unit 12/06/17 Prednisone [Deltasone] 40 mg PO DAILY #10 tab 12/06/17 Following Prescrptions Were Given to Patient: Oxygen, Home [Home Oxygen] 2 lpm NASAL CONT #1 unit Prednisone [Deltasone] 40 mg PO DAILY #10 tab Primary Care Physician: Poli Mendieta [Primary Care Provider] - Please follow up with your Primary Care Physician in: 1 week. Please Follow Up With: Abdiel Mosley DO When: 2 weeks. Patient Instructions: Discharge Instructions: Using a Metered- Dose Inhaler, Discharge Instructions: Using Oxygen at Home, COPD: Using Inhalers Disposition: Home Minutes spent on discharge:: 32 Patient Condition:: Stable Medical Necessity - Tobacco Use Smoking Status: Former smoker - 7.5-pack-year history Tobacco Use: Cigarettes Meaningful Use Info Meaningful Use Diagnoses (Choose all that apply): None applicable Code Visit Please ignore the visit code at the bottom of the progress note of December 06, 2017 because patient discharged on the same day. Please use the visit code on the bottom of the discharge summary. Inpatient E AND M: [id number] Disch Hosp 12/06/17 1338 <Electronically signed by Antonette Brown MD> Date Antonette Brown MD Cosigner Signature (if applicable): Date CC: Abdiel Mosley D.O.; Antonette Brown; POLI MENDIETA Signed DISCHARGE INSTRUCTION Observed: 12/06/2017 Status: F Source: [place] 11:41 AM [facility] REPOSITORY [facility] Medical Records Department [address] [place] [address] Instructions for Home/Discharge Instructions 12/06/17 1140 MR#: [id number] Acct: [id number] Name: MILAGROS STEVENSON Rep #: [id number] : 1935 82 From: Antonette Brown MD PCP: POLI MENDIETA Status: ADM IN - Discharge Diagnoses Current Active Problems: Current Active and Chronic Problems Acute respiratory failure with hypoxia (Acute) Obesity, morbid, BMI 40.0-49.9 (Chronic) History of tobacco use (Chronic) quit 1994 Gout (Chronic) Hypoxia (Chronic) You will use the following diet at home:: Cardiac Your food should be the consistency of: Regular Discharge Activity: Return to Normal Activity Weight Bearing Status: Weight bearing as tolerated Call your doctor if you observe: Fever of 101 or Higher, Shortness of breath, Dizziness, Fainting spells, Chest pain, Increased palpitations (irregular heartbeat), Uncontrolled pain Instructions: Discharge Instructions: Using Oxygen at Home, Discharge Instructions: Using a Metered-Dose Inhaler, COPD: Using Inhalers Allergies/Adverse Reactions: Allergies clindamycin [From Cleocin] Allergy (Verified 12/02/17 13:59) Unknown oxycodone HCl [From OxyContin] Allergy (Verified 12/02/17 13:59) Anaphylaxis Sulfa (Sulfonamide Antibiotics) Allergy (Verified 12/02/17 13:59) Anaphylaxis vancomycin Allergy (Verified 12/02/17 13:59) Hives guaifenesin [From Entex LA] Adverse Reaction (Verified 12/02/17 13:59) Unknown phenylephrine [From Entex LA] Adverse Reaction (Verified 12/02/17 13:59) Unknown phenylpropanolamine [From Entex LA] Adverse Reaction (Verified 12/02/17 13:59) Unknown BETA BLOCKERS Adverse Reaction (Uncoded 12/02/17 13:59) Unknown Medications to take at Discharge Aspirin 325 mg PO DAILY@0800 04/04/15 Estrogens, Conjugated [Premarin] 0.3 mg PO UD 04/04/15 Hydrochlorothiazide [Hctz] 25 mg PO DAILY 04/04/15 MedroxyPROGESTERone [Provera] 2.5 mg PO UD 05/18/15 Albuterol Inhaler [Ventolin Hfa] 2 puff INHALATION Q4H PRN PRN #1 inhaler 09/11/16 Hydrocodone Bitart/Apap 5-325 [[place] 5/325] 1 - 2 tablet PO Q4H PRN PRN #20 tablet 12/23/16 Budesonide/Formoterol 160/4.5 [Symbicort 160/4.5 Mcg Inhaler (SP)] 2 puff INHALATION BID 12/02/17 Felodipine [Plendil] 10 mg PO DAILY 12/02/17 Oxygen, Home [Home Oxygen] 2 lpm NASAL CONT #1 unit 12/06/17 Prednisone [Deltasone] 40 mg PO DAILY #10 tab 12/06/17 The following prescriptions were given: Oxygen, Home [Home Oxygen] 2 lpm NASAL CONT #1 unit Prednisone [Deltasone] 40 mg PO DAILY #10 tab Primary Care Physician: Poli Mendieta [Primary Care Provider] - Please follow up with your Primary Care Physician in: 1 week. Please Follow Up With: Abdiel Mosley DO When: 2 weeks. 12/06/17 1141 <Electronically signed by Antonette Brown MD> Date Antonette Brown MD CC: Abdiel Mosley D.O.; POLI MENDIETA BASIC METABOLIC Collected: 12/06/2017 Status: F Source: [place] PROFILE (BMP) 8:00 AM [facility] REPOSITORY TYPE CODE TESTS RESULT OUT OF RANGE REFERENCE UNITS LAB L501.0100 74-106 mg/dL Normal GLU 92 Result Comment: Please note revised GLUCOSE reference range effective 2017. LAB L501.1000 7-18 mg/dL High BUN 48 LAB L501.1100 0.55-1.02 mg/dL High CREAT,SERUM 1.46 Result Comment: The validity of the calculated GFR AND GFRAA in patients over 70 years has not been determined. Clinical correlation is essential. LAB L501.1110 >60 mL/min Low EST GFR 37 Result Comment: Non- GFR Calc LAB L501.1115 >60 mL/min Low EST GFR - AA 44 Result Comment: GFR Calc LAB L501.1255 ml/min Normal Estimated CRCL 28.77 LAB L501.1300 10-20 RATIO High BUN/CRE 32.9 LAB L501.2200 8.5-10 mg/dL Low .1 CA 8.2 LAB L501.5300 136-14 mmol/L Normal 5 NA 141 LAB L501.5600 3.5-5. mmol/L Normal 1 K 3.5 LAB L501.5900 98-107 mmol/L High CL 110 LAB L501.6100 21.0-3 mmol/L Normal 2.0 CO2 22.0 LAB L501.6200 5-15 Normal GAP 9 Performed By: #### L500.2500 #### [facility] [address] [place], [address] CHEST 1 VIEW Observed: 12/05/2017 Status: F Source: [place] (PORTABLE) 7:29 AM [facility] REPOSITORY [facility] Imaging Services [address] [place] [address] Chest 1 View (Portable) MR#: [id number] Acct: [id number] Name: MILAGROS STEVENSON Rep #: [id number] : 1935 F 82 From: Mazin Jiménez MD PCP: POLI MENDIETA Status: ADM IN Study: Chest 1 View (Portable) Date of Exam: 12/05/17 Exam# [id number] Ordering Dr: Abdiel Mosley DO STUDY: X-RAY CHEST REASON FOR EXAM: Female, 82 years old. Shortness of breath. TECHNIQUE: Single AP portable view of the chest. COMPARISON: 12/02/2017. FINDINGS: There again are prominent markings bilaterally unchanged prior examination probably chronic. No new infiltrate is seen. There is no demonstrated pleural abnormality. Normal size heart. Normal mediastinum and awilda. Normal visualized pulmonary arteries. There is atherosclerotic calcification of the aortic arch with tortuosity. There are diffuse degenerative changes of the visualized thoracic spine. There is degenerative osteoarthritis of the bilateral shoulders. Surgical pin is again seen overlying the right femoral head. There is no demonstrated abnormality of the visualized soft tissue structures of the upper abdomen. RAD/Chest 1 View (Portable) IMPRESSION: No significant change. No new infiltrate is seen. Electronically Signed: Mazin Jiménez MD at 8:51 EDT Tel , Service support , CC: Abdiel Mosley D.O.; POLI MENDIETA Chiropractor Sole Practitioner: Signed Observed: 12/05/2017 Status: F Source: [place] CULTURE, SPUTUM 6:00 AM [facility] REPOSITORY Gram Stain Acceptable Specimen? Yes (<25 Epithelial cells per/lpf) Gram Stain No White Blood Cells No Epithelial cells No organisms seen Resp. Culture No Haemophilus, Streptococcus pneumoniae, beta-hemolytic Streptococcus or Staphylococcus aureus isolated. ORGANISM 1: Presumptive C albicans Amount Growth 1+ Performed By: #### M100.0800 #### [facility] [address]. [place], [place], [address] RHEUMATOID FACTOR Collected: 12/04/2017 Status: F Source: [place] 7:28 AM [facility] REPOSITORY TYPE CODE TESTS RESULT OUT OF REFERENCE UNITS RANGE LAB L505.7010 <15 IU/mL High RHEUMATOID FAC 56.0 Performed By: #### L505.7010 #### [facility] [address] [place], [address] HARMEET W/ REFLEX MULT Collected: 12/04/2017 Status: F Source: [place] CONFIRM 7:28 AM [facility] REPOSITORY TYPE CODE TESTS RESULT OUT OF RANGE REFERENCE UNITS LAB L3100.5475 Negative Normal Negative HARMEET-DIRECT Performed By: #### L3100.5450, L3900.2100 #### [facility] (refer to report for specific site) refer to report for address and phone number ALPHA ANTITRYPSIN SERUM Collected: 12/04/2017 Status: F Source: [place] 7:28 AM [facility] REPOSITORY TYPE CODE TESTS RESULT OUT OF RANGE REFERENCE UNITS LAB L3900.2100 90-200 mg/dL Normal A- 131 [id number] Result Comment: Performed at: - [facility] [address] [id number] Cpas: Arnol Rebollar PhD, Phone: [phone] Performed By: #### L3100.5450, L3900.2100 #### [facility] (refer to report for specific site) refer to report for address and phone number ANCA Collected: 12/04/2017 Status: F Source: [place] 7:28 AM [facility] REPOSITORY TYPE CODE TESTS RESULT OUT OF RANGE REFERENCE UNITS LAB L3300.1225 Neg:<1:20 titer CYTOPLASMIC Normal Ab <1:20 LAB L3300.1250 Neg:<1:20 titer PERINUCLEAR Normal Ab <1:20 Result Comment: The presence of positive fluorescence exhibiting P-ANCA or C-ANCA patterns alone is not specific for the diagnosis of Vikki's Granulomatosis (WG) or microscopic polyangiitis. Decisions about treatment should not be based solely on ANCA IFA results. The International ANCA Group Consensus recommends follow up testing of positive sera with both AL- 3 and MPO-ANCA enzyme immunoassays. As many as 5% serum samples are positive only by EIA. Ref. AM J Clin Pathol 1999;111:507-513. LAB L3300.1285 Neg:<1:20 titer High Atypical pANCA 1:320 Result Comment: The atypical pANCA pattern has been observed in a significant percentage of patients with ulcerative colitis, primary sclerosing cholangitis and autoimmune hepatitis. Performed By: #### L3300.1200, L4600.0100 #### [facility] (refer to report for specific site) refer to report for address and phone number CCP IGG ANTIBODIES Collected: 12/04/2017 Status: F Source: [place] 7:28 AM [facility] REPOSITORY TYPE CODE TESTS RESULT OUT OF RANGE REFERENCE UNITS LAB L4600.0100 0-19 units Normal ANTI-CCP [id number] Result Comment: Negative <20 Weak positive 20 - 39 Moderate positive 40 - 59 Strong positive >59 Performed at: [facility] [employer] [id number] Cpas: Arnol Rebollar PhD, Phone: [phone] Performed at: [facility] [address] [id number] Cpas: Yair Gillette MD, Phone: [phone] Performed By: #### L3300.1200, L4600.0100 #### [facility] (refer to report for specific site) refer to report for address and phone number ECHOCARDIOGRAM COMPLETE Observed: 12/03/2017 Status: F Source: [place] 5:31 PM [facility] REPOSITORY [facility] Cardiovascular Services [address] [place] [address] Echo Complete 12/03/17 0938 MR#: [id number] Acct: [id number] Name: MILAGROS STEVENSON Rep #: [id number] : 1935 82 From: Alistair Vidal MD Attending Dr: Savita Lobo M.D. Status: ADM IN Ordering Dr: Constance Kaur Date: 12/02/17 Location: [facility] Sex: F C Admitted: 12/02/17 Reason For Study: DYSPNEA Procedure This was a 2D Doppler, Color Flow transthoracic echocardiogram. The study was technically difficult. Exam performed portable in patient room. Left Ventricle Normal LV size. Mild concentric left ventricular hypertrophy. Left ventricular systolic function is normal. The estimated ejection fraction is 60 %. Transmitral diastolic flow velocities suggest mild (stage 1) diastolic dysfunction (reversed pattern). No regional wall motion abnormalities noted. Right Ventricle Normal RV size. Normal systolic function. Atria The left atrium is moderately enlarged. Normal right atrium. Mitral Valve There is mild mitral annular calcification. Mild (1+) eccentric mitral valve insufficiency. Tricuspid Valve Normal tricuspid valve. Moderate (2+) tricuspid valve insufficiency. Pulmonary artery systolic pressure is 59 mmHg. Moderate pulmonary hypertension. Aortic Valve Normal aortic valve. Pulmonic Valve Normal pulmonic valve. Great Vessels Normal aortic root. The pulmonary artery is normal size. Normal inferior vena cava. Pericardium/Pleural No pericardial effusion. Medication Definity deferred due to elevated PAP. MMode/2D Measurements AND Calculations LVIDd: 3.9 cm IVSd: 1.2 cm Ao root diam: 3.1 cm LVIDs: 2.9 cm LVPWd: 1.6 cm LA dimension: 3.7 cm RVDd: 4.4 cm FS: 26.5 % LAV(MOD-bp): 66.8 ml LAV(MOD-bp) Indexed: 29.5 ml/m2 LA A4 area: 24.0 cm2 RA A4 area: 20.5 cm2 LAV(MOD-sp2): 50.0 ml LAV(MOD-sp4): 73.5 ml Doppler Measurements AND Calculations MV E max nestor: 74.6 cm/sec Ao V2 max: 171.4 cm/sec LV V1 max: 110.3 cm/sec MV A max nestor: 109.4 cm/sec Ao max P.8 mmHg LV V1 max P.9 mmHg MV E/A: 0.68 TR max nestor: 366.9 cm/sec TR max P.3 mmHg Interpretation Summary Normal LV size. Mild concentric left ventricular hypertrophy. Left ventricular systolic function is normal. The estimated ejection fraction is 60 %. Pulmonary artery systolic pressure is 59 mmHg. Moderate pulmonary hypertension. Transmitral diastolic flow velocities suggest mild (stage 1) diastolic dysfunction (reversed pattern). Ordering Physician: Constance Kaur Referring Physician: POLI MENDIETA Performed By: Delilah De Santiago, RDCS, RVT 12/03/17 1730 Date Alistair Vidal MD CC: Constance Kaur; POLI MENDIETA; Savita Lobo M.D. Date Dictated: 12/03/17 0938 Date Transcribed: 12/03/17 1730 Chiropractor Sole Practitioner: Signed 12 LEAD ELECTROCARDIOGRAM Observed: 12/03/2017 Status: F Source: [place] 2:34 PM [facility] REPOSITORY [facility] Cardiovascular Services [address] [place] [address] 12 Lead EKG 12/02/17 1450 MR#: [id number] Acct: [id number] Name: MILAGROS STEVENSON Rep #: [id number] : 1935 82 From: Alistair Vidal MD Attending Dr: Savita Lobo M.D. Status: ADM IN Ordering Dr: Dm Feliciano MD Date: 12/02/17 Location: [facility] Sex: F C Admitted: 12/02/17 Test Reason : Blood Pressure : / mmHG Vent. Rate : 094 BPM Atrial Rate : 094 BPM P-R Int : 160 ms QRS Dur : 080 ms QT Int : 376 ms P-R-T Axes : 064 032 035 degrees QTc Int : 470 ms Sinus rhythm with frequent Premature ventricular complexes Otherwise normal ECG Confirmed by CLIVE SHELDON, ALISTAIR ([id number]), online editor SUNSHINE STODDARD ([id number]) on 12/03/2017 2:33:54 PM Referred By: JODI Confirmed By:ALISTAIR VIDAL MD 12/03/17 1433 Date Alistair Vidal MD CC: Dm Feliciano MD; POLI MENDIETA; Savita Lobo M.D. Signed CONSULTATION Observed: 12/03/2017 Status: F Source: [place] 1:50 PM [facility] REPOSITORY [facility] Medical Records Department [address] [place] [address] Consultation 12/03/17 0811 MR#: [id number] Acct: [id number] Name: MILAGROS STEVENSON Rep #: [id number] : 1935 82 From: Francia Braga [employer] PCP: POLI MENDIETA Status: ADM IN Y Location: [facility] [id number] ADDENDUM by Abdiel Mosley D.O. on 12/03/17 at 1350 Code Visit The patient was seen and examined independently in conjunction with the nurse practitioner. All data was personally reviewed, including the note below, and I agree with the added comments. The patient is an 82-year-old female, with a history as outlined below, who presented to the emergency department with progressive exertional shortness of breath over the last month. The patient reports having been seen by both Meseret and Dr. Wilson in the pulmonary medicine clinic approximately 1 year ago. She does report having had pulmonary function testing completed. However, there is no report in our system. She reports that she currently utilizes Symbicort and Ventolin on an outpatient basis. She reports utilizing her rescue inhaler 4 times per day. She was seen by her primary care doctor who believed that she had a component of CHF and started her on Lasix. However, she did not respond to the aforementioned diuretic. Prior echocardiogram in 2014 did show evidence of diastolic dysfunction with preserved ejection fraction. On presentation to the emergency department, the patient was noted to be profoundly hypertensive with a blood pressure documented to be 200/104. Despite this, she was maintaining appropriate oxygen saturations on room air. Laboratory evaluation revealed no evidence of a leukocytosis. Chemistry profile revealed acute on chronic kidney disease. BNP was mildly elevated to 252. Troponin was negative. Plain film chest x-ray revealed chronic fibrotic changes without an acute cardiopulmonary process. The patient was subsequently started on aerosol treatments and steroids. She was admitted to the medical surgical floor for ongoing management. The patient's most recent lab work, culture data and imaging studies have all been personally reviewed. Respiratory viral panel was negative. I agree with the physical examination as documented below. The patient is morbidly obese, resting comfortably in bed. She is in no acute distress. Lung valenzuela are diminished bilaterally without appreciable wheezes, rales or rhonchi. Cardiac exam reveals a regular rate and rhythm without murmurs, rubs or gallops. Abdominal exam is benign with normal active bowel sounds. There is no clubbing, cyanosis or edema present. The patient is neurologically intact. IMPRESSION/PLAN: 1. Acute hypoxic respiratory insufficiency The patient reports no previous baseline supplemental oxygen requirement. Unclear what her blood pressure control is like at home. She did present to the emergency department with a systolic blood pressure of 200 mmHg. This could certainly contribute to her perception of dyspnea. Would plan to obtain echocardiogram and control blood pressure accordingly. In addition, prior chest imaging did reveal fibrotic lung changes. Therefore, would plan to proceed with a high resolution chest CT to evaluate for the presence of interstitial lung disease. She does report having had PFTs completed previously. Will call the pulmonary function lab to have them double check as to whether they were actually completed or not. Continue aerosols as ordered for now. Transition the patient from IV steroids to prednisone 40 mg. Wean supplemental oxygen to maintain saturations at or above 90%. Encourage incentive spirometer use and mobilize patient as tolerated. Inpatient E AND M: [id number] Init Hosp L3 12/03/17 1350 <Electronically signed by Abdiel Mosley DO> Date Abdiel Mosley DO cc: Abdiel Mosley D.O.; POLI MENDIETA * Signed Problem List (1) Acute respiratory failure with hypoxia Status: Acute (2) History of tobacco use Status: Chronic Comment: quit 1994 (3) Hypertension Status: Chronic Qualifiers: Hypertension type: essential hypertension Qualified Code(s): I10 - Essential (primary) hypertension (4) CKD (chronic kidney disease) Status: Chronic Qualifiers: Chronic kidney disease stage: stage 3 (moderate) Qualified Code(s): N18.3 - Chronic kidney disease, stage 3 (moderate) (5) Gout Status: Chronic Qualifiers: Gout site: unspecified site Gout etiology: unspecified cause Chronicity: unspecified Qualified Code(s): M10.9 - Gout, unspecified (6) History of TIA (transient ischemic attack) Status: Chronic (7) History of kidney cancer Status: Chronic (8) Obesity, morbid, BMI 40.0-49.9 Status: Chronic Reason for Consult Date of Consultation: 12/03/17 Reason for Consultation: ?COPD exacerbation History of Present Illness: The patient is a 82 year old F past medical history as below who presented to the ED at the urging of her PCP secondary to ongoing and progressive dyspnea on exertion since October 05. The patient noted she had significant hypoxia at home in the 70s and her breathing has gotten somewhat worse in the last 3-4 days. She denies any fever or chills. She does have a cough of clear sputum, mainly in the mornings. Denies any hemoptysis, shortness of breath at rest, orthopnea, dizziness, or syncope. Patient denies any sore throat, rhinorrhea, or other upper respiratory symptoms. She has not had any recent weight loss. Initial vital signs 200/104, pulse 94, RR 22, 98.2 F, and 94% on room air. Patient reportedly desaturated to 89% on room air, and was later ambulated on room air and desaturated further to 86%. The patient was placed on 2 L of oxygen and was saturating at 94%. Blood work showed no leukocytosis, hemoglobin normal. Chemistry remarkable for chloride of 112, BUN of 34 and creatinine 1.60. Creatinine in September 2016 was between 1.08 and 1.48. BNP was 252. TSH normal 2.65. Troponin negative 1. A respiratory viral panel was negative. Patient was started on aerosol treatments and chest physiotherapy. She was given a dose of IV doxycycline and started on IV steroids and scheduled bronchodilators. She was admitted to the medical surgical floor for further management. Pulmonary was consulted secondary to possible COPD exacerbation. Her blood pressure remains elevated. She has been weaned to 1 L of oxygen supplementation. Patient reports she initially presented to her primary care physician's office, Dr. Poli Mendieta, on October 05. He performed a chest x-ray. The patient was placed on some Lasix and the chest x-ray was repeated. Her PCP reportedly did not like the looks of it so the patient was set up for an appointment in the pulmonary clinic on December 21, 2017. Patient states that she waited several days, however she felt like her breathing was worsening, so she presented to the ED. The patient states she saw Meseret Sommers and Dr. Wilson approximately 1 year ago as a hospital follow-up for hypoxic respiratory insufficiency secondary to influenza A and was placed on Symbicort and Ventolin. Her breathing did improve at that time, however she was sent home on 2 L of oxygen. She is only been to the pulmonary clinic once, on 09/23/16. She states she had subsequent pulmonary function tests and a sleep study, however these do not appear to be completed, possibly done at outside facility. She was also to have alpha-1 antitrypsin testing, however unclear if this was completed. Patient did have an overnight pulse oximetry on 09/07/15 while wearing 2 L of oxygen supplementation, showed desaturations. Patient also reports a past history of asthma. She is on hormone replacement at baseline secondary to issues with menopause. Patient does have a history of smoking, 1/2 PPD for 15 years and quit in 1994 (7.5 [id number]). She does have a pulse oximeter at home and monitors this regularly. She typically desaturates after taking a couple of steps, however in the last several weeks she has significantly desaturated into the 60s to 70s with minimal exertion. Echocardiogram 04/09/15 showed normal LV size, mild concentric LVH, estimated EF 60%, impaired relaxation of left ventricle, and a mild focal aortic valve calcification. She has been seen in the past by [facility] for high-grade AV block. Patient had a chest CT in August 2016 that showed diffuse COPD and basilar for peripheral fibrotic changes. There were scattered areas of lymph nodes throughout the mesentery with the largest measuring 1.3 cm in the right paratracheal region most likely consistent with a reactive lymphadenopathy. Past Medical History Past Medical History (Chronic Problems): Chronic Problems Obesity, morbid, BMI 40.0-49.9 (Chronic) History of tobacco use (Chronic) quit 1994 Gout (Chronic) Hypoxia (Chronic) COPD exacerbation (Chronic) Hypertension (Chronic) History of TIA (transient ischemic attack) (Chronic) History of kidney cancer (Chronic) CKD (chronic kidney disease) (Chronic) Allergies clindamycin [From Cleocin] Allergy (Verified 12/02/17 13:59) Unknown oxycodone HCl [From OxyContin] Allergy (Verified 12/02/17 13:59) Anaphylaxis Sulfa (Sulfonamide Antibiotics) Allergy (Verified 12/02/17 13:59) Anaphylaxis vancomycin Allergy (Verified 12/02/17 13:59) Hives guaifenesin [From Entex LA] Adverse Reaction (Verified 12/02/17 13:59) Unknown phenylephrine [From Entex LA] Adverse Reaction (Verified 12/02/17 13:59) Unknown phenylpropanolamine [From Entex LA] Adverse Reaction (Verified 12/02/17 13:59) Unknown BETA BLOCKERS Adverse Reaction (Uncoded 12/02/17 13:59) Unknown Home Medications: Ambulatory Orders Medication Instructions Recorded Aspirin 325 mg PO DAILY@0800 04/04/15 Estrogens, Conjugated [Premarin] 0.3 mg PO UD 04/04/15 Hydrochlorothiazide [Hctz] 25 mg PO DAILY 04/04/15 Surgical History: - - Tonsillectomy, appendectomy, cholecystectomy, bilateral shoulder rotator cuff repair, right elbow fracture with surgery with pin in place, bilateral total knee replacement. 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 Smoking Status: Former smoker - 7.5-pack-year history Tobacco Use: Cigarettes Alcohol: None Drugs: None - *Family History Paternal History Items: Cancer - Pancreatic CA, age 3838 years old., Diabetes, Heart Disease, Hypertension Maternal History Items: Heart Disease, Hypertension Review of Systems Constitutional: Denies: Anorexia, Chills, Fever, Night Sweats, Malaise, Weakness, Weight Change, Fatigue Eyes: Denies: Vision Change HEENT: Denies: Difficulty Swallowing, Head Aches, Nasal bleeding, Nasal Congestion, Post Nasal Drip, Sinus Congestion, Sinus Drainage, Sore Throat Cardiovascular: Denies: Chest Pain, Chest Tightness, Edema, Light Headedness, Orthopnea, Palpitations, Paroxysmal Noc. Dyspnea, Syncope Respiratory: Reports: Cough - Mostly nonproductive except in the morning, Shortness of breath upon exertion, Sputum production - Clear, mainly in a.m., Wheezing. Denies: Hemoptysis, Shortness of breath at rest Gastrointestinal: Denies: Abdominal Pain, Constipation, Diarrhea, Dyspepsia, Hematemesis, Hematochezia, Nausea, Melena, Vomiting Genitourinary: Reports: Nocturia. Denies: Dysuria, Frequency, Hematuria, Retention Gynecological: Denies: Breast symptoms Musculoskeletal: Reports: Joint stiffness. Denies: Back Pain, Muscle pain, Neck Pain Skin: Denies: Rash, Wounds Neurological: Denies: Balance problems, Change in Speech, Confusion, Difficulty swallowing, Focal weakness, Numbness, Tingling, Tremor, Seizures Psychiatric: Denies: Anxiety, Depression Endocrine: Denies: Change in Body Habitus, Polydipsia, Polyuria Hematologic/ Lymphatic: Denies: Adenopathy, Anemia, Easy Bruising, Easy Bleeding, Hx of blood clot Patient Problems: Active and Suspected Problems Acute respiratory failure with hypoxia (Acute) Subjective: Patient was seen and examined. She denies any current shortness of breath, sitting up in bed eating her breakfast. No current wheezing or cough. Objective: Clinical Impression(s) from Imaging Studies Chest X-Ray 12/02/17 14:22 IMPRESSION: Degenerative changes, as described above. No demonstrated acute cardiopulmonary process. No significant interval change Electronically Signed: Delmer Barrett MD at 15:33 EDT , Service support , - Physical Exam General: Alert, Oriented x3, Cooperative, No apparent distress, Well developed, Well nourished, - - No conversational dyspnea HEENT: Atraumatic, Normocephalic Oral: Moist Mucosa, No Gingival or Mucosal Lesions/ Ulcerations, - - Crowded posterior oropharynx Neck: Supple, No JVD, No Nodes, Trachea Midline, - - Large neck circumference Lungs: Clear to auscultation, No rhonchi, No wheeze, No rales, Diminished, - - Symmetrical expansion, no dullness to percussion. No accessory muscle use Cardiovascular: Regular rate, Regular Rhythm, Normal S1, Normal S2, No murmurs, No rub noted, No Gallop Abdomen: Bowel Sounds Present, Soft, Non Tender, Non-Distended, Obese Extremities: No clubbing, No cyanosis, No edema, Capillary Refill Less than 3 Seconds, Peripheral Pulses Normal Skin: No rashes, No breakdown Musculoskeletal: No Tenderness to Palpation of Joints or Extremities Lymphatic: No Cervical, Supraclavicular, or Inguinal Adenopathy Neurological: Cranial nerves II-XII grossly intact, Neuro grossly intact, Motor Exam 5/5 strength throughout Psych/Mental Status: Alert and oriented to time, place, person, mood and affect Vital Signs Temp Pulse Resp BP Pulse Ox 98.5 F 100 20 H 164/85 H 95 12/03/17 02:30 12/03/17 06:45 12/03/17 06:45 12/03/17 02:30 12/03/17 06:45 Oxygen Flow Rate (L/min) 1 Oxygen Delivery Method Nasal Cannula Weight: 256 lb 13.416 oz Body Mass Index (BMI) 41.4 Intake and Output for Last 24 Hours Intake Total 1143 / 1143 510 / 510 Output Total 850 / 850 Balance 1143 / 1143 -340 / -340 Microbiology Past 72 Hours 12/02/17 20:10 Respiratory Panel (PCR) - Final Mucosa - Nasopharyngeal Laboratory Tests Past 24 Hrs WBC 6.1 RBC 4.44 Hgb 13.0 Hct 39.5 MCV 89.0 MCH 29.3 MCHC 32.9 RDW 15.2 H Assessment/Plan Active and Suspected Problems Acute respiratory failure with hypoxia (Acute) RECOMMENDATIONS 1. Wean oxygen supplementation to keep saturations 88-92%. 2. Encourage incentive spirometer 3. Increase activity as tolerated, PT/OT consult 4. Continue bronchodilators 5. Continue IV steroids for now, may DC tomorrow if improving and since no significant wheezing 6. Obtain high resolution chest CT 7. Walking oximetry prior to discharge IMPRESSIONS 1. Acute hypoxic respiratory failure Unclear etiology. No leukocytosis or fevers. Desaturations at home in the 60s-70s with exertion. No hypoxia at rest. Tachycardic at times. Prior chest CT 09/06/16 showed diffuse COPD and basilar peripheral fibrotic changes, scattered areas of lymph nodes throughout the mesentery with the largest measuring 1.3 cm the right paratracheal region most likely related to reactive lymphadenopathy. No follow-up CT was obtained as far as her knowledge. Very remote smoking history, 7.5-pack-year history. No current home oxygen requirements, however has had previous supplemental oxygen about a year ago after leaving the hospital. Patient reports she was told after her pulmonary function tests that she has COPD, these tests are not available. Last echocardiogram was in 2014 showed evidence of some diastolic dysfunction with estimated EF of 60%. RVSP was not estimated. Agree with repeating echocardiogram. Can obtain repeat CT the chest with high resolution, possible worsening fibrotic changes? There is also possibility for pulmonary embolism given the patient's history of malignancy and current hormonal therapy. Patient has responded well to systemic steroids, bronchodilators. Continue IV steroids and transition to oral tomorrow if continues to improve. Continue aerosols and increase activity as tolerated, participate in PT/OT. 2. Presumed COPD/obstructive sleep apnea Does not appear to be in an acute exacerbation at this time. No indication for antibiotics. Patient followed with Dr. Wilson while in hospital approximately one year ago, had one f/u visit with Meseret Sommers NP in the clinic. Pulmonary function tests and polysomnogram were ordered, however these were not completed here at [facility]. Patient states she had no other testing at other facilities. Chest imaging does indicate COPD. Will request records from her primary care physician's office for further clarification of past testing. If no prior pulmonary function tests, would recommend repeating when discharged. Her overnight pulse oximetry in 2016 also indicated desaturations, patient does snore. No daytime sleepiness. 3. History of nephrectomy secondary to renal carcinoma/remote smoking history/morbid obesity/TIA/CKD/hypertension/gout Complicates care, management, recovery, and prognosis. Continue home medications as indicated. Thank you for the opportunity to participate in this patient's care, please do not hesitate contact us with any further questions or concerns. This note was generated with Floob[employer] software. It may contain incorrect words, spelling, and punctuation that were not noted in checking the note before signing. 12/03/17 1229 <Electronically signed by Francia CRESPO> Date Francia WESTC Cosigner Signature (if applicable): Date CC: Abdiel Mosley D.O.; POLI MENDIETA Signed CHEST WITHOUT Observed: 12/03/2017 Status: F Source: [place] CONTRAST 11:52 AM [facility] REPOSIT[facility] Imaging Services [address] [place] [address] Chest without Contrast MR#: [id number] Acct: [id number] Name: MILAGROS STEVENSON Rep #: [id number] : 1935 F 82 From: Adonay Martinez MD PCP: POLI MENDIETA Status: ADM IN Study: Chest without Contrast Date of Exam: 12/03/17 Exam# [id number] Ordering Dr: Francia Braga STUDY: CT CHEST WITHOUT CONTRAST REASON FOR EXAM: Female, 82 years old. Wheezing, cough, COPD HX-RENAL CA W/ KIDNEY REMOVED STAGE 3 KIDNEY DZ FORMER SMOKER HTN RADIATION DOSAGE (If Supplied By Facility): CTDIvol = ( 24.18 ) mGy, DLP = ( 781.18 ) mGycm TECHNIQUE: Transaxial imaging was performed without the administration of intravenous contrast material. Individualized dose optimization techniques were used for this CT. COMPARISON: 09.06.16 FINDINGS: There is no pneumothorax. There are emphysematous changes of the lungs with emphysematous blebs. There is basilar fibrosis. There is no demonstrated pleural abnormality. There are degenerative changes of the shoulders. There are calcifications of the coronary arteries. Prominent axillary lymph nodes. Stable prominence of the lymph nodes in the mediastinum. Normal hilar regions. Normal pulmonary arteries. There is atherosclerotic calcification of the aortic arch with tortuosity and elongation of the aortic arch and descending thoracic aorta. There are multi-level degenerative changes of the thoracic spine. There is no demonstrated abnormality of the visualized upper abdomen. CT/Chest without Contrast IMPRESSION: Stable emphysematous changes along with lower lobe fibrosis. There are coronary arterial calcifications. Stable mediastinal lymph nodes. Electronically Signed: Adonay Martinez MD at 16:19 EDT , Service support , CC: Francia Braga [employer]; POLI MENDIETA Chiropractor Sole Practitioner: Signed CBC W/DIFF, AUTOMATED Collected: 12/03/2017 Status: F Source: [place] 5:35 AM [facility] REPOS[facility] TYPE CODE TESTS RESULT OUT OF RANGE REFERENCE UNITS LAB L100.1000 4.4-11.0 K/mm3 Normal WBC 6.1 LAB L100.1200 4.2-5.4 M/mm3 Normal RBC 4.44 LAB L100.1300 12.0-15.0 g/dl Normal HGB 13.0 LAB L100.1400 37-47 % Normal HCT 39.5 LAB L100.1500 81-99 fL Normal MCV 89.0 LAB L100.1600 27.0-32.0 pg Normal MCH 29.3 LAB L100.1700 32-36 g/gl Normal MCHC 32.9 LAB L100.1810 11.6-14.6 % High RDW CV 15.2 LAB L100.1820 35.1-43.9 fl High RDW SD 49.2 LAB L100.1900 150-450 K/mm3 Normal PLT 253 LAB L100.2000 6.2-12.0 fl Normal MPV 10.4 LAB L100.2100 47-70 % High NEUT% 89.7 LAB L100.2200 19-41 % Low LY% 8.9 LAB L100.2300 0-10 % Normal MONO% 1.2 LAB L100.2400 0-5 % Normal EO% 0.0 LAB L100.2500 0-1 % Normal BASO% 0.0 LAB L100.2550 0.0-0.9 % Normal IM GRAN % 0.200 Result Comment: IG% - Immature Granulocytes (promyelocytes, myelocytes and metamyelocytes) > 1% indicates that a LEFT SHIFT is Present. LAB L100.2620 2.0-7.7 X10 3/uL Normal Absolute Neut 5.5 LAB L100.2720 0.83-4.51 X10 3/ul Low Absolute Lymph 0.54 Performed By: #### L100.0100 #### [facility] [address] [place], [address] BASIC METABOLIC Collected: 12/03/2017 Status: F Source: [facility] PROFILE ([facility]) 5:35 AM [facility] TYPE CODE TESTS RESULT OUT OF RANGE REFERENCE UNITS LAB L501.0100 74-106 mg/dL High GLU 152 Result Comment: Fasting Glucose result greater than or equal to 126 mg/dL suggests DIABETES MELLITUS per A.D.A. criteria. Please note revised GLUCOSE reference range effective 2017. LAB L501.1000 7-18 mg/dL High BUN 36 LAB L501.1100 0.55-1.02 mg/dL High CREAT,SERUM 1.47 Result Comment: The validity of the calculated GFR AND GFRAA in patients over 70 years has not been determined. Clinical correlation is essential. LAB L501.1110 >60 mL/min Low EST GFR 36 Result Comment: Non- GFR Calc LAB L501.1115 >60 mL/min Low EST GFR - AA 44 Result Comment: GFR Calc LAB L501.1255 ml/min Normal Estimated CRCL 28.57 LAB L501.1300 10-20 RATIO High BUN/CRE 24.5 LAB L501.2200 8.5-10 mg/dL Normal .1 CA 8.5 LAB L501.5300 136-14 mmol/L Normal 5 NA 141 LAB L501.5600 3.5-5. mmol/L Normal 1 K 4.5 LAB L501.5900 98-107 mmol/L High CL 111 LAB L501.6100 21.0-3 mmol/L Normal 2.0 CO2 22.0 LAB L501.6200 5-15 Normal GAP 8 Performed By: #### L500.2500 #### [facility] [address] [place], [address] Observed: 12/02/2017 Status: F Source: [facility] RESPIRATORY PANEL 8:10 PM [facility]LECULAR REPOSITORY RP PANEL ADENOVIRUS Not Detected HUMAN METAPHNEUMO Not Detected INFLUENZA A Not Detected INFLUENZA A (SUBTYPE H1) Not Detected INFLUENZA A (SUBTYPE H3) Not Detected INFLUENZA B Not Detected PARAINFLUENZA 1 Not Detected PARAINFLUENZA 2 Not Detected PARAINFLUENZA 3 Not Detected PARAINFLUENZA 4 Not Detected RHINOVIRUS Not Detected RSV A Not Detected RSV B Not Detected NAAT METHOD Testing was performed using nucleic acid amplification Performed By: #### M100.638 #### [facility] [address] [place], [address] EMERGENCY DEPARTMENT Observed: 12/02/2017 Status: F Source: [place] SUMMARY 5:07 PM [facility] RE[facility]IT[facility] Medical Records Department [facility] [place] [address] Emergency Department Summary 12/02/17 1616 MR#: [id number] Acct: [id number] Name: MILAGROS STEVENSON Rep #: [id number] : 1935 82 From: Dm Feliciano MD PCP: POLI MENDIETA Status: ADM IN - ER Visit Summary Date of Service: 12/02/17 Chief Complaint: Breathing problems History of Present Illness: The patient is a 82 F with shortness of breath increasing over the last several weeks. Symptoms are worse with ambulation. Her oxygen at home was in the 60s and 70s. She had an outpatient x-ray and was started on a water pill. A repeat x-ray was done and her PCP did not like it. She was referred to pulmonology on December 21, but her symptoms are worsening and she cannot make it at home. She has a history of COPD, TIA, hypertension, CKD, and gout. She has a remote history of nephrectomy for cancer. Former smoker. Physical Examination: Afebrile. Blood pressure 200/104. Alert and oriented. Breathing comfortably. Speaking comfortably. Heart regular. Lungs clear. Abdomen soft. Skin normal in color. Calf soft and supple. Test Results: EKG showed sinus rhythm at a rate of 94 with PVCs. Chest x-ray showed no acute abnormalities. CBC normal. Chem panel unremarkable. BNP 252 and troponin normal. Emergency Department Course and Treatment: Patient was placed on a monitor. She received breathing treatments and Solu-Medrol. She continued to have some shortness of breath. Her sats were normal on a nasal cannula. Her repeat blood pressure was 170/75. She was treated with doxycycline. Given her continued symptoms despite outpatient therapy and hypoxia at home, I called the hospitalist to admit. Treatment Plan: As above Disposition: Admission Impression: 1. COPD exacerbation 2. Hypoxia This note was generated with [employer] dictation software. It may contain incorrect words, spelling, and punctuation that were not noted in review of the chart prior to signing ED Disposition - Plan for ED Patient: Chief Complaint: Shortness of Breath Referrals: Poli Mendieta [Primary Care Provider] - What to do if you have Problems For any increased pain, shortness of breath, bleeding, nausea or vomiting, chest pain, or any unexpected problems, contact your Primary Care Provider. Call [facility] ([phone]) or report to the closest Emergency Room. Call 911 if necessary. 12/02/17 9662 <Electronically signed by Dm Feliciano MD> Date mD Feliciano MD Cosigner Signature (If Indicated): Date CC: POLI MENDIETA HISTORY AND PHYSICAL Observed: 12/02/2017 Status: F Source: [facility] EXAM 4:52 PM [facility] Medical Records Department [address] [place] [address] History and Physical 12/02/17 1630 MR#: [id number] Acct: [id number] Name: MILAGROS STEVENSON Rep #: [id number] : 1935 82 From: Constance Kaur PCP: POLI MENDIETA Status: REG ER Y Location: ED Problem List (1) Obesity (BMI 30-39.9) Status: Chronic (2) History of tobacco use Status: Chronic (3) Gout Status: Chronic Qualifiers: Gout site: unspecified site Gout etiology: unspecified cause Chronicity: unspecified Qualified Code(s): M10.9 - Gout, unspecified (4) Hypoxia Status: Chronic (5) COPD exacerbation Status: Chronic (6) Hypertension Status: Chronic Qualifiers: Hypertension type: essential hypertension Qualified Code(s): I10 - Essential (primary) hypertension (7) History of TIA (transient ischemic attack) Status: Chronic (8) History of kidney cancer Status: Chronic (9) CKD (chronic kidney disease) Status: Chronic Qualifiers: Chronic kidney disease stage: stage 3 (moderate) Qualified Code(s): N18.3 - Chronic kidney disease, stage 3 (moderate) History of Present Illness Date of Admission: 12/02/17 Chief Complaint: Dyspnea, cough, wheezing, hypoxia The patient is a 82 y/o w/ PMHx: Obesity, History of Tobacco use, Gout, Chronic COPD, Hypertension, Hx TIA, History of Renal CA, CKD stage III (baseline Cr 1.4) who presents to the [facility] ED on 12/02/17 with history of 6 weeks of ongoing dyspnea worse with exertion and minimally productive cough without fever or chills with self-reported hypoxia at home (Son checked her oxygenation and noted 70s) with PCP evaluation and ? congestion on film prompting lasix usage transiently without improvement, thus referred to Pulmonary 12/21/17; however, she noted ongoing dyspnea, worsened with any effort over the last 3-4 weeks. In the ED work-up included AF, HR 90-100, BP 152/75, RR 22, 96% on 2L, although noted notable hypoxia at home, in the ED upon presentation 89% at rest, 86% on RA with ambulation and 90% on 2L with exertion with oxygen supplementation, CBC w/ WBC 10.4, Hgb 14, Plts 255 without marked shift, BMP w/ Chl 112, BUN/Cr 34/1.60, BNP 252, trop 0.03, EKG SR without acute evidence of ischemia, CXR with chronic changes. In the ED patient administered albuterol, duoneb, doxycycline, solumedrol. Past Medical History Past Medical History (Chronic Problems): Chronic Problems Obesity (BMI 30-39.9) (Chronic) History of tobacco use (Chronic) Gout (Chronic) Hypoxia (Chronic) COPD exacerbation (Chronic) Hypertension (Chronic) History of TIA (transient ischemic attack) (Chronic) History of kidney cancer (Chronic) CKD (chronic kidney disease) (Chronic) Allergies clindamycin [From Cleocin] Allergy (Verified 12/02/17 13:59) Unknown oxycodone HCl [From OxyContin] Allergy (Verified 12/02/17 13:59) Anaphylaxis Sulfa (Sulfonamide Antibiotics) Allergy (Verified 12/02/17 13:59) Anaphylaxis vancomycin Allergy (Verified 12/02/17 13:59) Hives guaifenesin [From Entex LA] Adverse Reaction (Verified 12/02/17 13:59) Unknown phenylephrine [From Entex LA] Adverse Reaction (Verified 12/02/17 13:59) Unknown phenylpropanolamine [From Entex LA] Adverse Reaction (Verified 12/02/17 13:59) Unknown BETA BLOCKERS Adverse Reaction (Uncoded 12/02/17 13:59) Unknown Home Medications: Ambulatory Orders Medication Instructions Recorded Aspirin 325 mg PO DAILY@0800 04/04/15 Estrogens, Conjugated [Premarin] 0.3 mg PO DAILY 04/04/15 Hydrochlorothiazide [Hctz] 25 mg PO DAILY 04/04/15 MedroxyPROGESTERone [Provera] 2.5 mg PO UD 05/18/15 Surgical History: - - Tonsillectomy, appendectomy, cholecystectomy, bilateral shoulder rotator cuff repair, right elbow fracture with surgery with pin in place, bilateral total knee replacement. 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 Smoking Status: Former smoker Tobacco Use: Non-smoker - Quit 1994, notes < 1/2 ppd since youth. Alcohol: None Drugs: None - *Family History Maternal History Items: Heart Disease, Hypertension Paternal History Items: Cancer - Pancreatic CA, age 3838 years old., Diabetes, Heart Disease, Hypertension Review of Systems Constitutional: Reports: Malaise, Weakness, Fatigue. Denies: Chills, Fever, Weight Change HEENT: Denies: Head Aches, Sinus Congestion, Sinus Drainage Cardiovascular: Denies: Chest Pain, Edema, Heaviness, Light Headedness, Palpitations Respiratory: Reports: Cough, Shortness of Breath, Shortness of breath at rest, Shortness of breath upon exertion, Sputum production, Wheezing Gastrointestinal: Denies: Abdominal Pain, Nausea, Vomiting Genitourinary: Denies: Dysuria Musculoskeletal: Reports: Back Pain. Denies: Joint Pain, Joint Tenderness Skin: Denies: Rash, Wounds Neurological: Denies: Numbness, Tingling, Focal weakness Psychiatric: Denies: Anxiety, Depression, Homicidal Ideations, Suicidal Ideations Hematologic/ Lymphatic: Denies: Easy Bruising, Easy Bleeding VTE Information - Inpt Only VTE Present on Admission: No VTE Mechan Device Prophylaxis: SCD's VTE Pharm Prophylaxis ordered?: Yes Subjective: Seated upright in the ED bed, comfortable appearing, NAD. Objective: Physical Examination: General: awake, alert, oriented x 3 and cooperative, seated upright in the ED bed in no apparent distress. Skin: normal color, turgor, no icterus, cyanosis. HEENT: AT/NC, EOMI, PERRLA, MMM, no carotid bruits or JVD noted. Lungs: Severely diminished BS throughout, > bases, mild effort, no rales, ronchi or wheezing. Heart: Mildly tachycardic, regular rhythm; no gallop, rub audible. Abdomen: soft, obese, NTTP, ND, normal BS, no HSM; however, habitus makes examination difficult. Extremities: no cyanosis, clubbing, or edema. Neurological: patient awake, alert, oriented x 3; cognitive function intact; pupils equally reactive to light and accomodation; cranial nerves II-XII grossly normal, moving all 4 extremities, no focal deficits, strength moderately to severely globally decreased secondary to acute presentation and habitus. Psychiatric: affect appears normal, no acute evidence of depressive or anxiety feelings. - Physical Exam Vital Signs Temp Pulse Resp BP Pulse Ox 98.2 F 101 H 22 H 152/75 H 96 12/02/17 13:54 12/02/17 16:24 12/02/17 16:24 12/02/17 16:24 12/02/17 16:24 Oxygen Flow Rate (L/min) 2 Oxygen Delivery Method Nasal Cannula Weight: 246 lb 14.684 oz Body Mass Index (BMI) 39.8 Laboratory Tests Past 24 Hrs Assessment/Plan The patient is a 82 y/o w/ PMHx: Obesity, History of Tobacco use, Gout, Chronic COPD, Hypertension, Hx TIA, History of Renal CA, CKD stage III who presents to the [facility] ED on 12/02/17 with history of 6 weeks of ongoing dyspnea worse with exertion and minimally productive cough without fever or chills with self-reported hypoxia at home with PCP evaluation and ? congestion on film prompting lasix usage transiently without improvement, thus referred to Pulmonary 12/21/17; however, she noted ongoing dyspnea, worsened with any effort over the last 3-4 weeks. (1) Hypoxia secondary to Suspected Primarily Acute on chronic COPD exacerbation: CXR w/ chronic changes, CBC on admission w/ WBC 10.4 without shift, afebrile. Will admit to MT, maintain on oxygen with wean as tolerated to room air, will need oxygenation testing once appropriate for discharge, continue ATC duonebs, PRN albuterol, IV methylprednisolone, HOB, IS parameters, defer abx given presentation, obtain viral respiratory panel, obtain sputum cx, obtain Pulmonary evaluation as had upcoming evaluation for further assessment and recommendations. ECHO also pending. Mag pending. (2) Hypertension: Continue home regimen including felodipine, hydrochlorothiazide, PRN hydralazine. (3) Hx Renal CA, Chronic Kidney Disease Stage III: Admission BUN/Cr 34/1.60, baseline renal function 1.4, repeat BMP in AM. Follows w/ [employer] [employer]. (4) Obesity: Weight loss and lifestyle changes encouraged, nutrition consulted for education. (5) Hx TIA/CVD: Maintain on asa, BP regimen with goal <140/90, not on statin. (6) GERD: Famotidine. (7) DVT Prophylaxis: SCDs, heparin. Code Visit Inpatient E AND M: [id number] Init Hosp L3 12/02/17 1652 <Electronically signed by Constance Kaur > Date Constance Kaur Cosigner Signature: Date (if applicable) CC: Constance Kaur; POLI MENDIETA Signed CBC W/DIFF, AUTOMATED Collected: 12/02/2017 Status: F Source: [place] 2:36 PM [facility]POS[facility] TYPE CODE TESTS RESULT OUT OF RANGE REFERENCE UNITS LAB L100.1000 4.4-11.0 K/mm3 Normal WBC 10.4 LAB L100.1200 4.2-5.4 M/mm3 Normal RBC 4.78 LAB L100.1300 12.0-15.0 g/dl Normal HGB 14.0 LAB L100.1400 37-47 % Normal HCT 42.4 LAB L100.1500 81-99 fL Normal MCV 88.7 LAB L100.1600 27.0-32.0 pg Normal MCH 29.3 LAB L100.1700 32-36 g/gl Normal MCHC 33.0 LAB L100.1810 11.6-14.6 % High RDW CV 14.9 LAB L100.1820 35.1-43.9 fl High RDW SD 48.7 LAB L100.1900 150-450 K/mm3 Normal PLT 255 LAB L100.2000 6.2-12.0 fl Normal MPV 10.0 LAB L100.2100 47-70 % High NEUT% 71.3 LAB L100.2200 19-41 % Normal LY% 19.5 LAB L100.2300 0-10 % Normal MONO% 8.4 LAB L100.2400 0-5 % Normal EO% 0.5 LAB L100.2500 0-1 % Normal BASO% 0.2 LAB L100.2550 0.0-0.9 % Normal IM GRAN % 0.100 Result Comment: IG% - Immature Granulocytes (promyelocytes, myelocytes and metamyelocytes) > 1% indicates that a LEFT SHIFT is Present. LAB L100.2620 2.0-7.7 X10 3/uL Normal Absolute Neut 7.4 LAB L100.2720 0.83-4.51 X10 3/ul Normal Absolute Lymph 2.03 Performed By: #### L100.0100 #### [facility] [place], [address] BASIC METABOLIC Collected: 12/02/2017 Status: F Source: [place] PROFILE (BMP) 2:36 PM [facility] REPOSIT[facility] Order Comment: 'TROP' Serial specimen #1, #2, #3, or #4: 1 TYPE CODE TESTS RESULT OUT OF RANGE REFERENCE UNITS LAB L501.0100 74-106 mg/dL Normal GLU 100 Result Comment: Fasting Glucose result from 100 to 125 mg/dL suggests IMPAIRED HOMEOSTASIS per A.D.A. criteria. Please note revised GLUCOSE reference range effective 2017. LAB L501.1000 7-18 mg/dL High BUN 34 LAB L501.1100 0.55-1.02 mg/dL High CREAT,SERUM 1.60 Result Comment: The validity of the calculated GFR AND GFRAA in patients over 70 years has not been determined. Clinical correlation is essential. LAB L501.1110 >60 mL/min Low EST GFR 33 Result Comment: Non- GFR Calc LAB L501.1115 >60 mL/min Low EST GFR - AA 40 Result Comment: GFR Calc LAB L501.1255 ml/min Normal Estimated CRCL 26.25 LAB L501.1300 10-20 RATIO High BUN/CRE 21.2 LAB L501.2200 8.5-10 mg/dL Normal .1 CA 9.0 LAB L501.5300 136-14 mmol/L Normal 5 NA 145 LAB L501.5600 3.5-5. mmol/L Normal 1 K 3.7 LAB L501.5900 98-107 mmol/L High CL 112 LAB L501.6100 21.0-3 mmol/L Normal 2.0 CO2 23.0 LAB L501.6200 5-15 Normal GAP 10 Performed By: #### L500.2500, L501.4010 #### [facility] [address] [place], [address] TROPONIN-I Collected: 12/02/2017 Status: F Source: [place] 2:36 PM [facility] Order Comment: 'TROP' Serial specimen #1, #2, #3, or #4: 1 TYPE CODE TESTS RESULT OUT OF RANGE REFERENCE UNITS LAB L501.4010 <0.06 ng/mL Normal 0.03 TROPONIN-I Result Comment: TROPONIN-I EXPECTED VALUES <0.05 NEGATIVE 0.06 - 0.59 AT RISK OF OR > OR = 0.60 SUGGEST OR Performed By: #### L500.2500, L501.4010 #### [facility] [address] [place], [address] BNP,B-TYPE NATRIURETIC Collected: 12/02/2017 Status: F Source: [place] PEPTIDE 2:36 PM [facility]IT[facility] TYPE CODE TESTS RESULT OUT OF RANGE REFERENCE UNITS LAB L503.6620 0-100 pg/mL High B-TYPE 252.0 KAVIN PEP Performed By: #### L503.6620 #### [facility] [address] [place], [address] MAGNESIUM Collected: 12/02/2017 Status: F Source: [place] 2:35 PM [facility] TYPE CODE TESTS RESULT OUT OF RANGE REFERENCE UNITS LAB L501.5200 1.6-2.6 mg/dL Normal MG 2.1 Result Comment: Please note revised Magnesium reference range effective 2017. Performed By: #### L501.5200, L501.9520 #### [facility] [address] [place], [address] THYROID STIM HORMONE Collected: 12/02/2017 Status: F Source: [place] (TSH) 2:35 PM [facility] TYPE CODE TESTS RESULT OUT OF RANGE REFERENCE UNITS LAB L501.9520 0.358-3.74 uIU/mL Normal TSH 2.65 Performed By: #### L501.5200, L501.9520 #### [facility] [address] [place], [address] CHEST 1 VIEW Observed: 12/02/2017 Status: F Source: [facility] (PORTABLE) 2:24 PM [facility] REPOSITORY [facility] Imaging Services [address] [place] [address] Chest 1 View (Portable) MR#: [id number] Acct: [id number] Name: MILAGROS STEVENSON Rep #: [id number] : 1935 F 82 From: Edward Barrett MD PCP: POLI MENDIETA Status: REG ER Study: Chest 1 View (Portable) Date of Exam: 12/02/17 Exam# [id number] Ordering Dr: Dm Feliciano MD STUDY: X-RAY CHEST REASON FOR EXAM: Female, 82 years old. Worsening cough TECHNIQUE: Single AP portable view of the chest. COMPARISON: 09/08/2016 FINDINGS: EKG leads overlie the chest There are interstitial fibrotic changes of the lungs. There is no demonstrated pleural abnormality. Normal size heart. Normal mediastinum and awilda. Normal visualized pulmonary arteries. There is atherosclerotic calcification of the aortic arch with tortuosity. There are diffuse degenerative changes of the visualized thoracic spine. There is degenerative osteoarthritis of the bilateral shoulders. There is no demonstrated abnormality of the visualized soft tissue structures of the upper abdomen. RAD/Chest 1 View (Portable) IMPRESSION: Degenerative changes, as described above. No demonstrated acute cardiopulmonary process. No significant interval change Electronically Signed: Delmer Barrett MD at 15:33 EDT , Service support , CC: Dm Feliciano MD; POLI MENDIETA Chiropractor Sole Practitioner: Signed XR CHEST 2 VIEWS Observed: 11/24/2017 Status: F Source: [facility] [employer] [facility] [employer] 1:34 PM [facility] REPOSITORY ORIGINAL XR CHEST 2 VIEWS CLINICAL STATEMENT: dyspnea COMPARISON: Chest radiograph 11/10/2017 FINDINGS: The cardiac silhouette at the upper limits of normal and stable. There is no consolidation or pneumothorax. There is interstitial prominence and peribronchial thickening that is similar to the earlier study. Vasculature is difficult to evaluate but is not clearly congested. No consolidation or pleural effusion. Dorsal spondylosis. There are post surgical changes to the right shoulder. There are multilevel degenerative changes of thoracic spine. IMPRESSION: No significant interval change. Interstitial prominence is probably chronic, interstitial edema is not excluded. Evaluate clinically. I have personally reviewed the images of this examination and agree with the resident's findings and interpretation. Interpreted By: Leobardo Carmen MD Preliminary Report By: Horace Atkins MD Electronically Signed By: Leobardo Carmen MD Dictated Date: 11/24/2017 2:23:10 PM Prelim Date: 11/24/2017 2:28:04 PM Sign Date: 11/24/2017 3:02:04 PM XR CHEST 2 VIEWS Observed: 11/10/2017 Status: F Source: [facility] 3:41 PM [facility] REPOSITORY ORIGINAL XR CHEST 2 VIEWS CLINICAL STATEMENT: dyspnea COMPARISON: None FINDINGS:The heart size is at the upper limits of normal. There is mild vascular congestion with increased interstitial lung markings, likely edema. No focal consolidation or pleural effusion is identif ied. Degenerative changes are seen within the spine. IMPRESSION:Vascular congestion with probable interstitial edema. Interpreted By: Coco Forbes MD Preliminary Report By: Coco Forbes MD Electronically Signed By: Coco Forbes MD Dictated Date: 11/11/2017 8:55:51 AM Prelim Date: 11/11/2017 8:55:51 AM Sign Date: 11/11/2017 8:56:39 AM ALLERGIES ALLERGIES DATE TYPE / CODE NAME / CODE REACTION SEVERITY SOURCE Drug oxycodone Anaphylaxis Unknown [place] 9 Allergy/313241756( HCl/C997483637 Community SNOMED CT) (RXNORM) Hospital Repository Drug Sulfa Anaphylaxis Unknown [place] 9 Allergy/652184337( (Sulfonamide Community SNOMED CT) Antibiotics)/F Hospital 059714023(RXNO Repository RM) Drug guaifenesin/F0 Unknown Unknown [place] 9 Allergy/345933702( 04542207(RXNOR Community SNOMED CT) M) Hospital Repository Drug phenylephrine/ Unknown Unknown [place] 9 Allergy/344452078( E780811240(RXN Community SNOMED CT) ORM) Hospital Repository Drug clindamycin/F0 Unknown Unknown [place] 9 Allergy/209641072( 03637191([facility]NOR [facility] M) Hospital Repository Drug phenylpropanol Unknown Unknown [place] 9 Allergy/972547166( amine/M6448242 Community SNOMED CT) 34(RXNORM) Hospital Repository Drug vancomycin/F00 Hives Unknown [place] 9 Allergy/078634961( 2478075(RXNORM Community SNOMED CT) ) Hospital Repository Miscellaneous BETA BLOCKERS Unknown Unknown [place] 9 Allergy/392742447( Community SNOMED CT) Hospital Repository ENCOUNTERS ENCOUNTERS ADMIT/DISCHARGE ACCOUNT NUMBER ADMITTING ENCOUNTER LOCATION SOURCE CLASS 09/28/2018 [id number] [place], Inpatient [place] Romel Ghasem Encounter [facility] ding:PCURoom Repository : [id number]: 1 09/28/2018 [id number] [facility], Ambulatory BMSBuilding: Romel Ghasem BMS.Formerly [facility] Repository 09/28/2018/09/28/19 [id number] Emergency BBuilding:[address] Repository 09/15/2018/09/23/19 [id number] [place], Inpatient [place] 19 Ghasem Encounter [facility] ding:PCURoom Repository : PBS624Zkm: 1 09/15/2018 [id number] [place], Ambulatory BMSBuilding: [place] Ghasem BMS.Formerly [facility] Repository 09/15/2018 [id number] [place], Ambulatory BMSBuilding: [place] Ghasem BMS.Formerly [facility] Repository 09/15/2018 [id number] [place], Ambulatory BMSBuilding: Rom[place] Ghasem BMS.Formerly [facility] Repository 09/15/2018 [id number] [place], Ambulatory BMSBuilding: [place] Ghasem BMS.Formerly [facility] Repository 09/15/2018 [id number] [place], Ambulatory BMSBuilding: Rom[place] Ghasem BMS.Formerly [facility] Repository 09/15/2018 [id number] [place], Ambulatory BMSBuilding: [place] Ghasem BMS.Formerly [facility] Repository 09/15/2018 [id number] [place], Ambulatory BMSBuilding: [place] Ghasem BMS.Formerly [facility] Repository 09/15/2018 [id number] [place], Ambulatory BMSBuilding: [place] Ghasem BMS.Formerly [facility] Repository 09/15/2018 [id number] [place], Ambulatory BMSBuilding: [place] Ghasem BMS.Formerly [facility] Repository 09/10/2018/09/10/19 [id number] Ambulatory BBuilding:OL [address] Repository 09/01/2018/09/01/20 [id number] Ambulatory BBuilding:OL [address] Repository 08/17/2018 [id number] [facility] 08/16/2018 [id number] [place], Ambulatory BMSBuilding: Romel Sarah BMS.Formerly [facility] Repository 08/16/2018 [id number] [place], Ambulatory BMSBuilding: [place] Sarah BMS.Formerly [facility] Repository 08/16/2018 [id number] [place], Ambulatory BMSBuilding: [place] Sarah BMS.Formerly [facility] Repository 08/16/2018 [id number] [place], Ambulatory BMSBuilding: [place] Sarah BMS.Formerly [facility] Repository 08/16/2018/08/19/20 [id number] [place], Inpatient [place] [address] ding:Guillermo Repository : [id number]: 1 04/12/2018/04/12/20 [id number] Ambulatory BMSBuilding: [address] Repository 04/12/2018/04/12/20 [id number] Ambulatory BMSBuilding: [address] Repository 04/11/2018/09/28/19 [id number] [place], Ambulatory Romel[address] ding:Tamikaom Repository : [id number] 04/11/2018 [id number] [place], Ambulatory BMSBuilding: Romel Constance BMS.Formerly [facility] Repository 04/11/2018 [id number] [place], Ambulatory BMSBuilding: [place] Constance BMS.Formerly [facility] Repository 04/06/2018/04/06/20 [id number] Ambulatory BMSBuilding: Rom[place] 18 BMS.[facility] Repository 03/11/2018/03/11/20 [id number] Emergency [address] ding:ED Repository 03/02/2018/03/02/20 [id number] Ambulatory BMSBuilding: [place] 18 BMS.[facility] Repository 01/27/2018 [id number] Ambulatory BMSBuilding: [facility] Repository 01/26/2018 [id number] [facility] ding:PSN Repository 01/20/2018 [id number] Ambulatory BMSBuilding: [facility] Repository 01/19/2018 [id number] [facility]ulatory [facility] ding:PSN Repository 12/25/2017/12/26/19 [id number] Ambulatory BMSBuilding: [place] 18 BMS.[facility] Repository 12/21/2017 [id number] Ambulatory [facility] Repository 12/02/2017/12/07/19 [id number] [place], Inpatient [address] ding:QR2Mcuz Repository : BZ683Ryf: 1 12/02/2017 [id number] [place], Ambulatory BMSBuilding: [place] Constance BMS.Formerly [facility] Repository 12/02/2017 [id number] [place], Ambulatory BMSBuilding: [place] Constance [facility] Repository 12/02/2017 [id number] [place], Ambulatory BMSBuilding: [place] Constance BMS..[facility] Repository 12/02/2017 [id number] [place], Ambulatory BMSBuilding: Rom[place] Constance BMS.CF.[facility] Repository 12/02/2017 [id number] [place], Ambulatory BMSBuilding: [place] Constance BMS.Formerly [facility] Repository 12/02/2017 [id number] [place], Ambulatory BMSBuilding: Rom[place] Constance BMS.CF.[facility] Repository 12/02/2017 [id number] [place], Ambulatory BMSBuilding: [place] Constance BMS.Formerly [facility] Repository 12/02/2017 [id number] [place], Ambulatory BMSBuilding: [place] Constance BMS.CF.[facility] Repository 12/02/2017 [id number] [place], Ambulatory BMSBuilding: [place] Constance BMS.[facility]ly [facility] Repository 12/02/2017/12/07/19 [id number] Ambulatory BMSBuilding: [place] 18 [facility] Repository 12/02/2017 [id number] Ambulatory BMSBuilding: [place] BMS.Formerly [facility] Repository 11/24/2017/11/25/19 [id number] Ambulatory [address] ding:[facility] Repository 11/10/2017/11/11/19 [id number] Ambulatory [address] ding:[facility] Repository PAYERS PAYERS ENCOUNTER GUARANTOR PAYER SUBSCRIBER SOURCE 09/28/2018 EDRA A [id number] Primary EDRA A YODERDOB: [place] BLADIMIR Insurance:MEDICARE [id number] [address]Imu: (330) Number: Repository [phone] HP [id number] Date:2018-09-28 09/28/2018 Secondary EDRA A YODERDOB: [place] [facility] [id number] Hospital Number: [facility] [id number] Repository Date:3151-81-92OFLYPQBRONX, [place] [address]XI: 09/28/2018 Tertiary NOT GIVENUNK [place] Insurance:SELF PAY [facility] Number: Effective Repository Date:2018-09-28 09/28/2018 EDRA A [id number] Primary EDRA A YODERDOB: [place] BLADIMIR Insurance:MEDICARE [id number] [facility] [address]Umg: (330) Number: Repository [phone] (HP) [id number] Date:2018-09-28 09/28/2018 Secondary EDRA A YODERDOB: [place] Insurance:MUTUAL OF [id number] [facility] Number: Hospital [id number] Repository Date:9241-42-97XDABRZ [place], [place] [address]EJ: 09/28/2018 Tertiary NOT GIVENUNK [place] Insurance:SELF PAY [facility] Number: Effective Repository Date:2018-09-28 09/28/2018 EDRA YODERDOB: Primary EDRA YODERDOB: [facility] Insurance:MEDICARE [id number] [facility] PART B [address] Repository [place] Number: [place] [address]Sbv: [phone]) [id number] 94543Kic: Date:2018-09-28 [phone] (HP)Tel: [phone] () (WP) Name:[facility] 000-0000 () [address] [address]EB: 09/28/2018 Secondary EDRA YODERDOB: [facility] Insurance:MUTUAL OF [id number] [address] Repository Number: [place] [id number]: (330) Date:2018-09-28 [id number] ()Tel: (000) Name:CMUTUAL [facility] 000-0000 (WP) SABINO CHU [address]AM: 09/15/2018 EDRA A [id number] Primary EDRA A YODERDOB: [place] BLADIMIR Insurance:MEDICARE [id number] [place] PART A [facility] [address]Mif: (330) Number: Repository [phone] (HP) [id number] Date:2018-09-15 09/15/2018 Secondary EDRA A YODERDOB: [place] Insurance:MUTUAL OF [id number] [facility] Number: Hospital [id number] Repository Date:9672-36-78XGMIOF OF [place], [place] [address]HA: 09/15/2018 Tertiary NOT GIVENUNK [place] Insurance:SELF PAY [facility] Number: Effective Repository Date:2018-09-15 09/15/2018 EDRA A [id number] Primary EDRA A YODERDOB: [place] BLADIMIR Insurance:MEDICARE [id number] [facility] [address]Lyp: (330) Number: Repository [phone] () [id number] Date:2018-09-15 09/15/2018 Secondary EDRA A YODERDOB: [place] Insurance:MUTUAL OF [id number] Hospital Number: [facility] [id number] Repository Date:7772-56-80PRUSMM [place], [place] [address]MW: 09/15/2018 Tertiary NOT GIVENUNK [place] Insurance:SELF PAY [facility] Number: Effective Repository Date:2018-09-15 09/15/2018 EDRA A [id number] Primary EDRA A YODERDOB: [place] BLADIMIR Insurance:MEDICARE [id number] [facility]ull[facility] [address]Ozz: (330) Number: Repository [phone] [id number] Date:2018-09-15 09/15/2018 Secondary EDRA A YODERDOB: [place] Insurance:MUTUAL OF [id number] Hospital Number: [facility] [id number] Repository Date:4489-78-11PBQWXCPASADENA, [place] [address]CZ: 09/15/2018 Tertiary NOT GIVENUNK [place] Insurance:SELF PAY [facility] Number: Effective Repository Date:2018-09-15 09/15/2018 EDRA A [id number] Primary EDRA A YODERDOB: [place] BLADIMIR Insurance:MEDICARE [id number] [facility] [address]Qwo: (330) Number: Repository [phone] () [id number] Date:2018-09-15 09/15/2018 Secondary EDRA A YODERDOB: [place] Insurance:MUTUAL OF [id number] Hospital Number: Hospital [id number] Repository Date:1128-74-92IDTGRN OF [place], [place] [address]OR: 09/15/2018 Tertiary NOT GIVENUNK [place] Insurance:SELF PAY [facility] Number: Effective Repository Date:2018-09-15 09/15/2018 EDRA A [id number] Primary EDRA A YODERDOB: [place] BLADIMIR Insurance:MEDICARE [id number] [facility]ull[facility] [address]Sxy: (330) Number: Repository [phone] () [id number] Date:2018-09-15 09/15/2018 Secondary EDRA A YODERDOB: [place] Insurance:MUTUAL OF [id number] Hospital Number: [facility] [id number] Repository Date:7403-67-01PQRKWQ [place], [place] [address]WU: 09/15/2018 Tertiary NOT GIVENUNK [place] Insurance:SELF PAY [facility] Number: Effective Repository Date:2018-09-15 09/15/2018 EDRA A [id number] Primary EDRA A YODERDOB: [place] BLADIMIR Insurance:MEDICARE [id number] [facility] [address]Atr: (330) Number: Repository [phone] () [id number] Date:2018-09-15 09/15/2018 Secondary EDRA A YODERDOB: [place] Insurance:MUTUAL OF [id number] Hospital Number: [facility] [id number] Repository Date:1973-85-64OVHWMK [place], [place] [address]TD: 09/15/2018 Tertiary NOT GIVENUNK [place] Insurance:SELF PAY [facility] Number: Effective Repository Date:2018-09-15 09/15/2018 EDRA A [id number] Primary EDRA A YODERDOB: [place] BLADIMIR Insurance:MEDICARE [id number] [facility]ull[facility] [address]Mrl: (330) Number: Repository [phone] ) [id number] Date:2018-09-15 09/15/2018 Secondary EDRA A YODERDOB: [place] Insurance:MUTUAL OF [id number] Hospital Number: [facility] [id number] Repository Date:0000-29-29IAWXFM [place], [place] [address]MD: 09/15/2018 Tertiary NOT GIVENUNK [place] Insurance:SELF PAY [facility] Number: Effective Repository Date:2018-09-15 09/15/2018 EDRA A [id number] Primary EDRA A YODERDOB: [place] BLADIMIR Insurance:MEDICARE [id number] [facility] [address]Aee: (330) Number: Repository [phone] () [id number] Date:2018-09-15 09/15/2018 Secondary EDRA A YODERDOB: [place] Insurance:MUTUAL OF [id number] Hospital Number: Hospital [id number] Repository Date:1631-14-14NCTOKRPASADENA, [place] [address]BP: 09/15/2018 Tertiary NOT GIVENUNK [place] Insurance:SELF PAY [facility] Number: Effective Repository Date:2018-09-15 09/15/2018 EDRA A [id number] Primary EDRA A YODERDOB: [place] BLADIMIR Insurance:MEDICARE [id number] [facility]ull[facility] 330[address]Kqx: (330) Number: Repository [phone] () [id number] Date:2018-09-15 09/15/2018 Secondary EDRA A YODERDOB: [place] Insurance:MUTUAL OF [id number] Hospital Number: Hospital [id number] Repository Date:8434-65-67AEXXUDPASADENA, [place] [address]SZ: 09/15/2018 Tertiary NOT GIVENUNK [place] Insurance:SELF PAY [facility] Number: Effective Repository Date:2018-09-15 09/15/2018 EDRA A [id number] Primary EDRA A YODERDOB: [place] Insurance:MEDICARE [id number] PART A [facility] [address]Uor: (330) Number: Repository [phone] () [id number] Date:2018-09-15 09/15/2018 Secondary EDRA A YODERDOB: [place] Insurance:MUTUAL [id number] Hospital Number: Hospital [id number] Repository Date:9146-62-71ZQQTJTPASADENA, [place] [address]MF: 09/15/2018 Tertiary NOT GIVENUNK [place] Insurance:SELF PAY [facility] Number: Effective Repository Date:2018-09-15 09/10/2018 EDRA YODERDOB: Primary EDRA YODERDOB: [facility] [id number] Insurance:MEDICARE [id number] [facility] PART B [facility]ENTERCOPolicSi[facility] HealthBLADIMIR [place], [place] Number: [place], [place] [address]Oev: 330 [id number] 89[address]Jjs: Date:2018-09-107663 ()Tel: [phone]) [phone] () () Name:[facility] 000-0000 () Administrators [address] [address]TH: 09/10/2018 Secondary EDRA YODERDOB: [facility] Insurance:MUTUAL OF [id number] [place] [address] Repository Number: OLEGARIO ALONSO [id number] [address]37[address]Hld: (330) Date:2018-09-102643605-01-09Ywbo ()Tel: (000) Name:[facility] [place] 000-0000 () SABINO CHU [address]TO: 09/01/2018 EDRA YODERDOB: Primary EDRA YODERDOB: [facility] Insurance:MEDICARE [id number] [place] [address] Number: [place] [address]Fkg: (330) [id number] [address]Ytk: Date:2018-09-01 [phone] ()Tel: [phone]) [phone] () () Name:[facility] 000-0000 () [facility]a [address] [address]VQ: 09/01/2018 Secondary EDRA YODERDOB: [facility] Insurance:MUTUAL OF [id number] [address] Repository Number: [place] [id number] [address]Lre: (330) Date:2018-09-01 [id number] ()Tel: (000) Name:[facility] [place] 000-0000 () SABINO CHU [address]NC: 08/17/2018 EDRA A [id number] [facility]ARE [id number] [place] PART A [facility] [address]Zix: (330) Number: Repository [phone] () [id number] Date:2018-08-16 08/17/2018 Secondary EDRA A YODERDOB: [place] Insurance:MUTUAL OF [id number] Hospital Number: Hospital [id number] Repository Date:1374-67-92ZPHITVBRONX, [place] [address]QR: 08/17/2018 Tertiary NOT GIVENUNK [place] Insurance:SELF PAY [facility] Number: Effective Repository Date:2018-08-17 08/16/2018 EDRA A [id number] Primary EDRA A YODERDOB: [place] BLADIMIR Insurance:MEDICARE [id number] [facility] [address]Lpw: (330) Number: Repository [phone] () [id number] Date:2018-08-16 08/16/2018 Secondary EDRA A YODERDOB: [place] Insurance:MUTUAL OF [id number] Hospital Number: [facility] [id number] Repository Date:5144-93-26GQKRYY [place], [place] [address]YV: 08/16/2018 Tertiary NOT GIVENUNK [place] Insurance:SELF PAY [facility] Number: Effective Repository Date:2018-08-16 08/16/2018 EDRA A [id number] Primary EDRA A YODERDOB: [place] BLADIMIR Insurance:MEDICARE [id number] [facility] [address]Iyr: (330) Number: Repository [phone] () [id number] Date:2018-08-16 08/16/2018 Secondary EDRA A YODERDOB: [place] Insurance:MUTUAL OF [id number] [place] [address] Number: [facility] [id number] Repository Date:2696-13-66ZRAHYZBRONX, [place] [address]PL: 08/16/2018 Tertiary NOT GIVENUNK [place] Insurance:SELF PAY [facility] Number: Effective Repository Date:2018-08-16 08/16/2018 EDRA A [id number] Primary EDRA A YODERDOB: [place] BLADIMIR Insurance:MEDICARE [id number] [facility] [address]Wjs: (330) Number: Repository [phone] () [id number] Date:2018-08-16 08/16/2018 Secondary EDRA A YODERDOB: [place] Insurance:MUTUAL OF [id number] Hospital Number: Hospital [id number] Repository Date:9908-77-79DADESI OF [place], [place] [address]OR: 08/16/2018 Tertiary NOT GIVENUNK [place] Insurance:SELF PAY [facility] Number: Effective Repository Date:2018-08-16 08/16/2018 EDRA A [id number] Primary EDRA A YODERDOB: [place] BLADIMIR Insurance:MEDICARE [id number] [facility]ull[facility] [address]Yjc: (330) Number: Repository [phone] () [id number] Date:2018-08-16 08/16/2018 Secondary EDRA A YODERDOB: [place] Insurance:MUTUAL OF [id number] Hospital Number: [facility] [id number] Repository Date:6626-53-32LFUAVS OF [place], [place] [address]KB: 08/16/2018 Tertiary NOT GIVENUNK [place] Insurance:SELF PAY [facility] Number: Effective Repository Date:2018-08-16 08/16/2018 EDRA A [id number] Primary EDRA A YODERDOB: [place] BLADIMIR Insurance:MEDICARE [id number] [facility]ull[facility] [address]Qck: (330) Number: Repository [phone] () [id number] Date:2018-08-16 08/16/2018 Secondary EDRA A YODERDOB: [place] Insurance:MUTUAL OF [id number] Hospital Number: Hospital [id number] Repository Date:5619-53-63IVQSLB OF [place], [place] [address]HO: 08/16/2018 Tertiary NOT GIVENUNK [place] Insurance:SELF PAY [facility] Number: Effective Repository Date:2018-08-16 04/12/2018 EDRA A [id number] Primary EDRA A YODERDOB: [place] BLADIMIR Insurance:MEDICARE [id number] McCullough-[facility] [address]Rtn: (330) Number: Repository [phone] () [id number] Date:2018-04-11 04/12/2018 Secondary EDRA A YODERDOB: [place] Insurance:MUTUAL OF [id number] Hospital Number: [facility] [id number] Repository Date:6955-63-41ILDIBR OF [place], [place] [address]YP: 04/12/2018 Tertiary NOT GIVENUNK [place] Insurance:SELF PAY [facility] Number: Effective Repository Date:2018-04-12 04/12/2018 EDRA A [id number] Primary EDRA A YODERDOB: [place] BLADIMIR Insurance:MEDICARE [id number] [facility]ullough-[facility] [address]2014Wha: (330) Number: Repository [phone] () [id number] Date:2018-04-11 04/12/2018 Secondary EDRA A YODERDOB: [place] Insurance:MUTUAL OF [id number] [place] [address] Number: [facility] [id number] Repository Date:5833-09-74UEMVYN OF [place], [place] [address]EA: 04/12/2018 Tertiary NOT GIVENUNK [place] Insurance:SELF PAY [facility] Number: Effective Repository Date:2018-04-12 04/11/2018 EDRA A [id number] Primary EDRA A YODERDOB: [place] BLADIMIR Insurance:MEDICARE [id number] McCullough-[facility] [address]Ooa: (330) Number: Repository [phone] () [id number] Date:2018-04-11 04/11/2018 Secondary EDRA A YODERDOB: [place] Insurance:MUTUAL OF [id number] Hospital Number: Hospital [id number] Repository Date:9013-88-53JMBGGRPASADENA, [place] [address]GD: 04/11/2018 Tertiary NOT GIVENUNK [place] Insurance:SELF PAY [facility] Number: Effective Repository Date:2018-04-11 04/11/2018 EDRA A [id number] Primary EDRA A YODERDOB: [place] BLADIMIR Insurance:MEDICARE [id number] McCullough-[facility] [address]Sid: (330) Number: Repository [phone] () [id number] Date:2018-04-11 04/11/2018 Secondary EDRA A YODERDOB: [place] Insurance:MUTUAL OF [id number] Hospital Number: [facility] [id number] Repository Date:9897-07-38QIRDJL [place], [place] [address]LG: 04/11/2018 Tertiary NOT GIVENUNK [place] Insurance:SELF PAY [facility] Number: Effective Repository Date:2018-04-11 04/11/2018 EDRA A [id number] Primary EDRA A YODERDOB: [place] BLADIMIR Insurance:MEDICARE [id number] [facility] [address]Mop: (330) Number: Repository [phone] () [id number] Date:2018-04-11 04/11/2018 Secondary EDRA A YODERDOB: [place] Insurance:MUTUAL OF [id number] Hospital Number: [facility] [id number] Repository Date:5864-61-13YQJSKSPASADENA, [place] [address]WC: 04/11/2018 Tertiary NOT GIVENUNK [place] Insurance:SELF PAY [facility] Number: Effective Repository Date:2018-04-11 04/06/2018 EDRA A [id number] Primary EDRA A YODERDOB: [place] BLADIMIR Insurance:MEDICARE [id number] McCullough-[facility] [address]Tqh: (330) Number: Repository [phone] () [id number] Date:2018-03-02 04/06/2018 Secondary EDRA A YODERDOB: [place] Insurance:MUTUAL OF [id number] Hospital Number: Hospital [id number] Repository Date:4981-73-43RCPVAI OF [place], [place] [address]UD: 04/06/2018 Tertiary NOT GIVENUNK [place] Insurance:SELF PAY [facility] Number: Effective Repository Date:2018-03-30 03/11/2018 EDRA A [id number] Primary EDRA A YODERDOB: [place] BLADIMIR Insurance:MEDICARE [id number] McCullough-[facility] [address]Pem: (330) Number: Repository [phone] () [id number] Date:2018-03-11 03/11/2018 Secondary EDRA A YODERDOB: [place] Insurance:MUTUAL OF [id number] [place] [address] Number: [facility] [id number] Repository Date:7110-69-32PSVCHY OF [place], [place] [address]FL: 03/11/2018 Tertiary NOT GIVENUNK [place] Insurance:SELF PAY [facility] Number: Effective Repository Date:2018-03-11 03/02/2018 EDRA A [id number] Primary EDRA A YODERDOB: [place] BLADIMIR Insurance:MEDICARE [id number] [facility]ull[facility] [address]Jqk: (330) Number: Repository [phone] () [id number] Date:2017-12-29 03/02/2018 Secondary EDRA A YODERDOB: [place] Insurance:[employer] [facility] [id number]: [facility] [id number] Repository Date:4530-03-71[place], [place] [address]OX: 03/02/2018 Tertiary NOT GIVENUNK [place] Insurance:SELF PAY [facility] Number: Effective Repository Date:2018-02-23 01/27/2018 EDRA A [id number] Primary EDRA A YODERDOB: [place] BL[place] Insurance:MEDICARE [id number] [address]Ofr: [phone] Number: Repository [phone] () [id number] Date:2017-12-29 01/27/2018 Secondary EDRA A YODERDOB: [place] Insurance:MUTUAL OF [id number] Hospital Number: [facility] [id number] Repository Date:2052-45-75UKDUXV OF [place], [place] [address]RM: 01/27/2018 Tertiary NOT GIVENUNK [place] Insurance:SELF PAY [facility] Number: Effective Repository Date:2018-01-27 01/26/2018 EDRA A [id number] Primary EDRA A YODERDOB: [place] Insurance:MEDICARE [id number] [address]Evv: (330) Number: Repository [phone] () [id number] Date:2017-12-29 01/26/2018 Secondary EDRA A YODERDOB: [place] Insurance:MUTUAL OF [id number] Hospital Number: Hospital [id number] Repository Date:9678-94-54IKXCMN OF [place], [place] [address]UH: 01/26/2018 Tertiary NOT GIVENUNK [place] Insurance:SELF PAY [facility] Number: Effective Repository Date:2017-12-29 01/20/2018 EDRA A [id number] Primary EDRA A YODERDOB: [place] Insurance:MEDICARE [id number] [facility] [address]Drl: (330) Number: Repository [phone] () [id number] Date:2017-12-29 01/20/2018 Secondary EDRA A YODERDOB: [place] Insurance:MUTUAL OF [id number] Hospital Number: Hospital [id number] Repository Date:9986-50-74BXDQQZP[place]AD[place], [place] [address]FT: 01/20/2018 Tertiary NOT GIVENUNK [place] Insurance:SELF PAY [facility] Effective Repository Date:2018-01-20 01/19/2018 EDRA A [id number] Primary EDRA A YODERDOB: [place] Insurance:MEDICARE [id number] [facility] [address]Egc: (330) Number: Repository [phone] () [id number] Date:2017-12-29 01/19/2018 Secondary EDRA A YODERDOB: [place] Insurance:MUTUAL OF [id number] Hospital Number: Hospital [id number] Repository Date:4446-53-22FJRVNL [place], [place] [address]HY: 01/19/2018 Tertiary NOT GIVENUNK [place] Insurance:SELF PAY [facility] Number: Effective Repository Date:2017-12-29 12/25/2017 EDRA A [id number] Primary EDRA A YODERDOB: [place] Insurance:MEDICARE [id number] [facility] [address]Xyg: (330) Number: Repository [phone] () [id number] Date:2017-12-08 12/25/2017 Secondary EDRA A YODERDOB: [place] Insurance:MUTUAL OF [id number] Hospital Number: Hospital [id number] Repository Date:8125-71-27OKYCDG [place], [place] [address]HE: 12/25/2017 Tertiary NOT GIVENUNK [place] Insurance:SELF PAY [facility] Number: Effective Repository Date:2017-12-18 12/21/2017 Edra A [id number] Primary Edra A YoderDOB: [place] Insurance:MEDICARE [id number] [address]Lpv: (330) Number: Repository [phone] () [id number] Date:2017-12-21 12/21/2017 Secondary Edra A YoderDOB: [place] Insurance:MUTUAL OF [id number] Hospital Number: Hospital [id number] Repository Date:2143-28-66ZDXORF [place], [place] [address]DT: 12/21/2017 Tertiary NOT GIVENUNK [place] Insurance:SELF PAY [facility] Number: Effective Repository Date:2017-12-21 12/02/2017 Edra A [id number] Primary Edra A YoderDOB: [place] Insurance:MEDICARE [id number] [facility] [address]Wfo: (330) Number: Repository [phone] () [id number] Date:2017-12-02 12/02/2017 Secondary Edra A YoderDOB: [place] Insurance:MUTUAL OF [id number] Hospital Number: [facility] [id number] Repository Date:8804-07-63ROSQGZ OF [place], [place] [address]FA: 12/02/2017 Tertiary NOT GIVENUNK [place] Insurance:SELF PAY [facility] Number: Effective Repository Date:2017-12-02 12/02/2017 Edra A [id number] Primary Edra A YoderDOB: [place] Insurance:MEDICARE [id number] [facility] University [facility] [address]Phc: (330) Number: Repository [phone] () [id number] Date:2017-12-02 12/02/2017 Secondary Edra A YoderDOB: [place] Insurance:MUTUAL OF [id number] Hospital Number: Hospital [id number] Repository Date:3567-63-92GJLGAG [place], [place] [address]MA: 12/02/2017 Tertiary NOT GIVENUNK [place] Insurance:SELF PAY [facility] Number: Effective Repository Date:2017-12-02 12/02/2017 Edra A [id number] Primary Edra A YoderDOB: [place] Insurance:MEDICARE [id number] [place] [id number]: (330) Number: Repository [phone] () [id number] Date:2017-12-02 12/02/2017 Secondary Edra A YoderDOB: [place] Insurance:MUTUAL OF [id number] [place] [address] Number: [facility] [id number] Repository Date:8633-15-80XABEOL [place], [place] [address]AI: 12/02/2017 Tertiary NOT GIVENUNK [place] Insurance:SELF PAY [facility] Number: Effective Repository Date:2017-12-02 12/02/2017 Edra A [id number] Primary Edra A YoderDOB: [place] Insurance:MEDICARE [id number] Ville [id number]: (330) Number: Repository [phone] () [id number] Date:2017-12-02 12/02/2017 Secondary Edra A YoderDOB: [place] Insurance:MUTUAL OF [id number] [place] [address] Number: [facility] [id number] Repository Date:1701-43-20XNDKJW OF [place], [place] [address]AO: 12/02/2017 Tertiary NOT GIVENUNK [place] Insurance:SELF PAY [facility] Number: Effective Repository Date:2017-12-02 12/02/2017 Edra A [id number] Primary Edra A YoderDOB: [place] Insurance:MEDICARE [id number] Ville [id number]: (330) Number: Repository [phone] () [id number] Date:2017-12-02 12/02/2017 Secondary Edra A YoderDOB: [place] Insurance:MUTUAL OF [id number] Hospital Number: Hospital [id number] Repository Date:6838-95-57XTMKXXBRONX, [place] [address]CY: 12/02/2017 Tertiary NOT GIVENUNK [place] Insurance:SELF PAY [facility] Number: Effective Repository Date:2017-12-02 12/02/2017 Edra A [id number] Primary Edra A YoderDOB: [place] Insurance:MEDICARE [id number] State University [facility] [address]Pqm: (330) Number: Repository [phone] () [id number] Date:2017-12-02 12/02/2017 Secondary Edra A YoderDOB: [place] Insurance:MUTUAL OF [id number] Hospital Number: Hospital [id number] Repository Date:9653-44-58FZSGKE OF [place], [place] [address]OV: 12/02/2017 Tertiary NOT GIVENUNK [place] Insurance:SELF PAY [facility] Number: Effective Repository Date:2017-12-02 12/02/2017 Edra A [id number] Primary Edra A YoderDOB: [place] Insurance:MEDICARE [id number] State University [facility] [address]Eoz: (330) Number: Repository [phone] () [id number] Date:2017-12-02 12/02/2017 Secondary Edra A YoderDOB: [place] Insurance:MUTUAL OF [id number] Hospital Number: Hospital [id number] Repository Date:4342-28-81DGWYQCPASADENA, [place] [address]XB: 12/02/2017 Tertiary NOT GIVENUNK [place] Insurance:SELF PAY [facility] Number: Effective Repository Date:2017-12-02 12/02/2017 Edra A [id number] Primary Edra A YoderDOB: [place] Insurance:MEDICARE [id number] State University [facility] Medical Center [address]Zuz: (330) Number: Repository [phone] () [id number] Date:2017-12-02 12/02/2017 Secondary Edra A YoderDOB: [place] Insurance:MUTUAL OF [id number] Hospital Number: Hospital [id number] Repository Date:5703-02-58WNMLNG [place], [place] [address]SJ: 12/02/2017 Tertiary NOT GIVENUNK [place] Insurance:SELF PAY [facility] Number: Effective Repository Date:2017-12-02 12/02/2017 Edra A [id number] Primary Edra A YoderDOB: [place] Insurance:MEDICARE [id number] State University [facility] [address]Stf: (330) Number: Repository [phone] () [id number] Date:2017-12-02 12/02/2017 Secondary Edra A YoderDOB: [place] Insurance:MUTUAL OF [id number] Hospital Number: Hospital [id number] Repository Date:7876-43-54HFYMUJ [place], [place] [address]WP: 12/02/2017 Tertiary NOT GIVENUNK [place] Insurance:SELF PAY [facility] Number: Effective Repository Date:2017-12-02 12/02/2017 Edra A [id number] Primary Edra A YoderDOB: [place] Insurance:MEDICARE [id number] State University Wexner Medical Center [address]Qwv: (330) Number: Repository [phone] () [id number] Date:2017-12-02 12/02/2017 Secondary Edra A YoderDOB: [place] Insurance:MUTUAL OF [id number] Hospital Number: Hospital [id number] Repository Date:6204-45-69TXLASZPASADENA, [place] [address]KE: 12/02/2017 Tertiary NOT GIVENUNK [place] Insurance:SELF PAY [facility] Number: Effective Repository Date:2017-12-02 12/02/2017 EDRA A [id number] Primary EDRA A YODERDOB: [place] Insurance:MEDICARE [id number] [facility] [address]Mno: (330) Number: Repository [phone] () [id number] Date:2017-12-02 12/02/2017 Secondary EDRA A YODERDOB: [place] Insurance:MUTUAL OF [id number] Hospital Number: Hospital [id number] Repository Date:9237-40-32XKWNRS [place], [place] [address]IB: 12/02/2017 Tertiary NOT GIVENUNK [place] Insurance:SELF PAY [facility] Number: Effective Repository Date:2017-12-02 12/02/2017 Edra A [id number] Primary Edra A YoderDOB: [place] Insurance:MEDICARE [id number] State University [facility] Medical Center [address]Jev: (330) Number: Repository [phone] () [id number] Date:2017-12-02 12/02/2017 Secondary Edra A YoderDOB: [place] Insurance:MUTUAL OF [id number] Hospital Number: Hospital [id number] Repository Date:0391-62-75WSMZYC OF [place], [place] [address]ZJ: 12/02/2017 Tertiary NOT GIVENUNK [place] Insurance:SELF PAY [facility] Number: Effective Repository Date:2017-12-02 11/24/2017 EDRA YODERDOB: Primary EDRA YODERDOB: [facility] [id number] Insurance:MEDICARE [id number] [place] [address] BPolicy Number: 9 [place] Repository [facility], [place] [id number] [facility], [place] [address]Nja: (330) Date:2017-11-24Tel: [id number] [phone] (HP)Tel: [phone]) Name:PCGS () (WP) Administrators LLCPO 000-0000 (WP) [address] [address]Ljzoekvbz, [place] [address]RX: 11/24/2017 Secondary EDRA YODERDOB: [facility] [id number] [place] [address] Number: 9 [facility] [id number] [facility] [place] [place] Date:2017-11-24Tel: [phone] Name:CMUTUAL [facility] ()Tel: (000) SABINO CHU 000-0000 (WP) [address]VH: 11/10/2017 EDRA YODERDOB: Primary EDRA YODERDOB: [facility] Insurance:MEDICARE [id number] [facility] BPolicy Number: 9 [place] Repository [facility], [place] [id number] [facility], [place] [address]Gdf: (330) Date:2017-11-10Tel: [id number] [phone] (HP)Tel: [phone]) Name:PCGS () (WP) Administrators LLCPO 000-0000 (WP) [address] [address]RI: 11/10/2017 Secondary EDRA YODERDOB: [facility] Insurance:MUTUAL OF [id number] [place] [address] Number: 9 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
== END 2018-08-19 11:33 | disposition home or self-care (01) | DRG 291 ==
LOC: ED 15:08 → PCU 16:47
PROVIDERS: Internal Medicine Nephrology; Nurse Practitioner Family; Admitting Provider Internal Medicine; Emergency Provider Emergency Medicine; Family Provider Family Medicine; PCP Family Medicine; Visit Provider Hospitalist
DX: I13.0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 heart and chronic kidney disease with heart failure and stage 1 through stage 4 chronic kidney disease, or unspecified chronic kidney disease (principal); J96.21 Acute and chronic respiratory failure with hypoxia; I50.33 Acute on chronic diastolic (congestive) heart failure; Z68.41 Body mass index [BMI] 40.0-44.9, adult; N17.9 Acute kidney failure, unspecified; E66.01 Morbid (severe) obesity due to excess calories; M10.9 Gout, unspecified; N18.3 Chronic kidney disease, stage 3 (moderate); I27.20 Pulmonary hypertension, unspecified; Z99.81 Dependence on supplemental oxygen; Z90.5 Acquired absence of kidney; Z86.73 Personal history of transient ischemic attack (TIA), and cerebral infarction without residual deficits; Z85.528 Personal history of other malignant neoplasm of kidney; Z87.891 Personal history of nicotine dependence
CPT/HCPCS: 36415; 71045; 71046; 76770; 80048; 80053; 80061; 81001; 83735; 83880; 84100; 84443; 84484; 85025; 85610; 85730; 93005; 94640; 97802; 99285; A4216; J1940

== ENCOUNTER 2018-09-15 10:53 | Inpatient (IN) | payer MEDICARE, OTHER, SELFPAY ==
[2018-08-16 17:22] VITALS: BMI 41.7
[2018-09-15] VITALS (20 sets, daily range): BP systolic 147–191; BP diastolic 60–98; PULSE 74–111; RESP 18–28; TEMP 36.2–36.9; O2SAT 92–98; BMI 40.1; BMI 38.8
--- NOTE | 2018-09-15 11:36 | EKG12_ITS ---
Test Reason : SOB Blood Pressure : / mmHG Vent. Rate : 089 BPM Atrial Rate : 089 BPM P-R Int : 158 ms QRS Dur : 086 ms QT Int : 370 ms P-R-T Axes : 053 048 020 degrees QTc Int : 450 ms Sinus rhythm with marked sinus arrhythmia Otherwise normal ECG Confirmed by JAYESH SHELDON, ZACH ([id number]), photograph editor SUNSHINE STODDARD ([id number]) on 09/20/2018 10:02:35 AM Referred By: ALBERT Confirmed By:ZACH MCCONNELL MD
--- NOTE | 2018-09-15 11:37 | RAD_ITS ---
STUDY: X-RAY CHEST REASON FOR EXAM: Female, 82 years old. Shortness of breath. TECHNIQUE: PA and lateral views. COMPARISON: 08/18/2018. FINDINGS: Increased prominence of the interstitial lung markings. This may be due to mild pulmonary interstitial edema. Suspicious small bilateral pleural fluid. Cardiomegaly. Normal mediastinum and awilda. Mild pulmonary vascular congestion. Normal visualized aortic arch and descending thoracic aorta. Lateral marginal spurring along the thoracic spine. Normal visualized ribs, clavicles, and shoulders. There is no demonstrated abnormality of the visualized soft tissue structures of the upper abdomen. RAD/Chest PA and Lateral IMPRESSION: Suspicious mild CHF when compared to 08/18/2018. Electronically Signed: Alexis Millan MD at 12:55 EST , Service support ,
--- NOTE | 2018-09-15 11:38 | ED.VISSUMM ---
- ER Visit Summary Date of Service: 09/15/18 Chief Complaint: Shortness of breath History of Present Illness: The patient is a 82 F history of prior CHF, COPD, TIA and renal insufficiency. Patient was admitted about a month ago for CHF. She is on 4 L of oxygen at home. States she was doing well until last night had trouble sleeping. Said position related make a big difference. She denies any chest pain. She has had a mild cough of clear sputum. She denies any chest pain. No hemoptysis. She is never had a DVT or PE. She denies any leg swelling and states when she had CHF before she did not have leg swelling. No calf pain. She denies any fever. Physical Examination: Well-appearing older female. Vital signs are currently stable. She is afebrile. Pulse ox is 94% on 4 L. No hypoxia on oxygen. H EENT exam unremarkable. Neck nontender. No JVD. Lungs clear to auscultation bilaterally. No rales, rhonchi or wheezing. Heart tachycardic rate about 103 no murmur. Abdomen is soft and nontender. Normal bowel sounds no peritoneal signs. Extremities she moves all 4. Neurovascular intact. Calves are nontender without edema nor cords. Neurologically she is awake and alert with no focal motor deficits. She is moving all 4 extremities. Back exam nontender. Skin unremarkable. Test Results: Chest x-ray shows congestive heart failure and pulmonary edema read by myself. Chronic changes. EKG sinus rhythm rate 89. No ischemia. CBC White count 9. Hemoglobin 13. Chemistries unremarkable she has chronic renal insufficiency with a creatinine 1.78. Normal gap. Normal troponin. BNP elevated 618. Consistent with Pulmonary edema. Emergency Department Course and Treatment: Older female with dyspnea with a history of CHF, COPD and renal insufficiency. Repeat exam unchanged. I discussed with the patient and her son of her test results. They both would appreciate admission for diuresis. She has been given IV Lasix in the ER. Treatment Plan: Diuresis for pulmonary edema Disposition: Admission Impression: Acute dyspnea secondary to acute exacerbation of CHF History of CHF, COPD, home O2 and renal insufficiency This note was generated with [employer] software. It may contain incorrect words, spelling, and punctuation that were not noted in review of the chart prior to signing ED Disposition - Plan for ED Patient: Chief Complaint: Shortness of Breath Referrals: Dustin Mendieta MD [Primary Care Provider] -
[2018-09-15 12:17] LABS: Absolute Lymphocyte Count 0.89 X10^3/ul (0.83-4.51); Absolute Neutrophil Count 7.3 X10^3/uL (2.0-7.7); Basophil# 0.03 X10^3/uL; Basophil% 0.3 % (0-1); Eosinophil# 0.11 X10^3/uL; Eosinophils% 1.2 % (0-5); Hematocrit 41.1 % (37-47); Hemoglobin 13.1 g/dl (12.0-15.0); Lymphocyte # 0.89 X10^3/ul (4.0); Lymphocyte % 9.5 % (19-41); Mean Corp Hgb Conc 31.9 g/gl (32-36); Mean Corpuscular Hgb 28.6 pg (27.0-32.0); Mean Corpuscular Volume 89.7 fL (81-99); Mean Platelet Vol. 9.7 fl (6.2-12.0); Monocyte# 0.94 X10^3/uL; Monocyte% 10.1 % (0-10); Neutrophil # 7.34 X10^3/uL (2.7-7.7); Neutrophil % 78.8 % (47-70); Platelet Count 288 K/mm3 (150-450); RBC Distribution Width CV 16.1 % (11.6-14.6); RBC Distribution Width SD 52.2 fl (35.1-43.9); Red Blood Count 4.58 M/mm3 (4.2-5.4); White Blood Count 9.3 K/mm3 (4.4-11.0)
[2018-09-15 12:19] LABS: POSITIVE COUNT NO; POSITIVE DIFFERENTIAL NO; POSITIVE MORPHOLOGY NO
[2018-09-15 12:21] LABS: International Normalized Ratio 1.1; Prothrombin Time (Protime)PT. 14.5 SECONDS (11.7-14.9)
[2018-09-15 12:34] LABS: Anion Gap 10 (5-15); BUN 22 mg/dL (7-18); BUN/Creat Ratio 12.4 RATIO (10-20); Calcium,Total 8.7 mg/dL (8.5-10.1); Chloride 109 mmol/L (98-107); Creatinine, Serum 1.78 mg/dL (0.55-1.02); EST Glomerular Filtration Rate 29 mL/min (>60); Est Glom Filt Rate - Afr Amer 35 mL/min (>60); Glucose 131 mg/dL (74-106); Potassium 3.9 mmol/L (3.5-5.1); Sodium Level 144 mmol/L (136-145)
[2018-09-15 12:45] LABS: BNP,B-Type NATRIURETIC PEPTIDE 618.3 pg/mL (0-100)
[2018-09-15] MEDS: Furosemide 40 MG/4 ML Vial IV ×2 (13:08→17:15)
--- NOTE | 2018-09-15 13:08 | NURSING ---
DR WILKINS IN WITH PATIENT
--- NOTE | 2018-09-15 13:09 | NURSING ---
PCU OBS CHF ASHELFAH
--- NOTE | 2018-09-15 13:22 | HP.PCM_ITS ---
Problem List (1) COPD (chronic obstructive pulmonary disease) Status: Chronic (2) Chronic respiratory failure with hypoxia Status: Chronic (3) Chronic renal failure, stage 3 (moderate) Status: Chronic Comment: 3-4 (4) Pulmonary hypertension Status: Chronic Comment: PA pressure 57 in November 2017 (5) Gout Status: Chronic Qualifiers: (6) Hypertension Status: Chronic Qualifiers: (7) History of TIA (transient ischemic attack) Status: Chronic Comment: 1998 (8) History of kidney cancer Status: Chronic Comment: S/P nephrectomy History of Present Illness Date of Admission: 09/15/18 Chief Complaint: Shortness of breath. The patient is a 82 year old F with past medical history as mentioned above presented to the emergency room because of shortness of breath. Her symptoms started last night with exertional shortness of breath, she can walk only for a few steps before she gets short of breath, aggravated by walking for more distance, relieved by rest, associated with mild orthopnea and cough with clear sputum. She denied leg edema. She stated that she takes her Lasix daily as supposed to be. She does have chronic hypoxic respiratory failure and she has been on oxygen at home at 4 L. She denies fever or chills. She denied chest pain, palpitation, dizziness or lightheadedness. In the emergency department, she was afebrile, blood pressure was slightly elevated, pulse ox was 97% on 4 L. Her routine blood work was remarkable for BUN of 22 and creatinine of 1.78, otherwise normal. Troponin was 0.038. BNP was 618. Chest x-ray revealed bilateral pulmonary vascular congestion with fluid in the fissure on the right side. EKG revealed normal sinus rhythm with sinus arrhythmia, no acute ischemic changes. She is being admitted for acute on chronic diastolic CHF. Past Medical History Past Medical History (Chronic Problems): Chronic Problems (Last Updated 08/17/18 @ 13:56 by Antonette Brown MD) COPD (chronic obstructive pulmonary disease) (Chronic) Chronic respiratory failure with hypoxia (Chronic) Chronic renal failure, stage 3 (moderate) (Chronic) 3-4 Hormone replacement therapy (Chronic) Pulmonary hypertension (Chronic) PA pressure 57 in November 2017 Stasis dermatitis (Chronic) Obesity, morbid, BMI 40.0-49.9 (Chronic) Gout (Chronic) Hypertension (Chronic) History of TIA (transient ischemic attack) (Chronic) 1998 History of kidney cancer (Chronic) S/P nephrectomy Medical History: Medical History (Last Updated 08/17/18 @ 13:56 by Antonette Brown MD) Cancer of right kidney 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 Impingement syndrome of left shoulder M75.42 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 DJD (degenerative joint disease) M19.90 Venous insufficiency I87.2 Elbow fracture, right S42.401A Allergies clindamycin [From Cleocin] Allergy (Verified 09/15/18 10:54) Unknown oxycodone HCl [From OxyContin] Allergy (Verified 09/15/18 10:54) Anaphylaxis Sulfa (Sulfonamide Antibiotics) Allergy (Verified 09/15/18 10:54) Anaphylaxis vancomycin Allergy (Verified 09/15/18 10:54) Hives guaifenesin [From Entex LA] Adverse Reaction (Verified 09/15/18 10:54) Unknown phenylephrine [From Entex LA] Adverse Reaction (Verified 09/15/18 10:54) Unknown phenylpropanolamine [From Entex LA] Adverse Reaction (Verified 09/15/18 10:54) Unknown BETA BLOCKERS Adverse Reaction (Uncoded 09/15/18 10:54) Unknown Home Medications: Ambulatory Orders Medication Instructions Recorded Estrogens, Conjugated [Premarin] 0.3 mg PO DAILY 04/04/15 MedroxyPROGESTERone [Provera] 5 mg PO DAILY 05/18/15 Aspirin 325 mg PO DAILY@0800 04/12/18 Felodipine [Plendil] 10 mg PO DAILY 08/16/18 Umeclidinium Brm/Vilanterol Tr 1 puff INHALATION DAILY 08/16/18 [Anoro Ellipta 62.5-25 Mcg INH] Furosemide [Lasix] 40 mg PO DAILY #30 tablet 08/19/18 hydrALAZINE [Apresoline] 25 mg PO TID #90 tablet 08/19/18 Cholecalciferol (Vitamin D3) 2,000 unit PO DAILY 09/15/18 [Vitamin D3] Hydrocodone/Acetaminophen [[place] 1 tab PO TID PRN PRN 09/15/18 5-325 Tablet] Surgical History: Surgical History (Last Reviewed 08/16/18 @ 18:39 by Violeta Dowling DO) H/O rotator cuff surgery Z98.890 right History of appendectomy Z90.49 age 18 History of left knee replacement Z96.652 2007 History of nephrectomy Z90.5 1995 for cancer History of total right knee replacement Z96.651 2010 Hx of cholecystectomy Z90.49 2016 Hx of removal of ovary Surgical History: - - Tonsillectomy, appendectomy, cholecystectomy, bilateral shoulder rotator cuff repair, right elbow fracture with surgery with pin in place, bilateral total knee replacement. Renal cell carcinoma, Surgery for SBO, Single salpingectomy and oophorectomy for ectopic . Lives: With Family Smoking Status: Never smoker Alcohol: None Drugs: None - *Family History Paternal Family History: Family History (Last Reviewed 08/16/18 @ 18:39 by Violeta Dowling DO) Mother CAD (coronary artery disease) Father Colon cancer History Items: Cancer - Pancreatic CA, age 3838 years old., Diabetes, Heart Disease, Hypertension Maternal Family History: Family History (Last Reviewed 08/16/18 @ 18:39 by Violeta Dowling DO) Mother CAD (coronary artery disease) Father Colon cancer History Items: Heart Disease, Hypertension Review of Systems Constitutional: Denies: Anorexia, Chills, Fever, Weakness Eyes: Denies: Blurred vision, Double vision, Redness HEENT: Denies: Difficulty Hearing, Ear Pain, Eye Pain, Nasal Congestion, Sore Throat Cardiovascular: Reports: Orthopnea. Denies: Chest Pain, Chest Pressure, Chest Tightness, Edema, Light Headedness, Paroxysmal Noc. Dyspnea, Syncope Respiratory: Reports: Cough, Shortness of breath upon exertion, Sputum production. Denies: Pleuritic Pain, Wheezing Gastrointestinal: Denies: Abdominal Pain, Constipation, Diarrhea, Nausea, Vomiting Genitourinary: Denies: Dysuria, Frequency, Hematuria Musculoskeletal: Denies: Arm Pain, Back Pain, Foot Pain Skin: Denies: Dryness, Rash Neurological: Denies: Balance problems, Change in Speech, Slurred speech, Confusion, Headaches, Incoordination, Numbness Psychiatric: Denies: Anxiety, Depression Endocrine: Denies: Change in Body Habitus, Polydipsia VTE Information - Inpt Only VTE Present on Admission: No VTE Mechan Device Prophylaxis: None VTE Pharm Prophylaxis ordered?: Yes - Physical Exam General: Alert, Oriented x3, Cooperative, - - Minimally short of breath. HEENT: Atraumatic, PERRLA, EOMI, Normocephalic Oral: Moist Mucosa, No Gingival or Mucosal Lesions/ Ulcerations Neck: Supple, No JVD, Negative Carotid Bruits, Trachea Midline, Thyroid Normal Size and Texture Lungs: No wheeze, No rales, Diminished, Rales, Short of Breath, - - Decreased breath sounds bilateral, bilateral basal crackles. Cardiovascular: Regular rate, Regular Rhythm, Normal S1, Normal S2, PMI Normal Abdomen: Bowel Sounds Present, Soft, Non Tender, Non-Distended, No Hepato- splenomegaly, Obese Extremities: No clubbing, No cyanosis, No edema Skin: No rashes, No breakdown Lymphatic: No Cervical, Supraclavicular, or Inguinal Adenopathy Neurological: Cranial nerves II-XII grossly intact, Motor Exam 5/5 strength throughout Psych/Mental Status: Normal Affect, Appropriate, Alert and oriented to time, place, person, mood and affect Vital Signs Temp Pulse Resp BP Pulse Ox 98.5 F 93 23 H 158/91 H 97 09/15/18 13:14 09/15/18 13:14 09/15/18 13:14 09/15/18 13:14 09/15/18 13:14 Oxygen Flow Rate (L/min) 4 Oxygen Delivery Method Nasal Cannula Weight: 249 lb Body Mass Index (BMI) 40.1 Laboratory Tests Past 24 Hrs 09/15/18 09/15/18 09/15/18 12:05 12:05 12:05 WBC 9.3 RBC 4.58 Hgb 13.1 Hct 41.1 MCV 89.7 MCH 28.6 MCHC 31.9 L RDW 16.1 H RDW Differential 52.2 H Plt Count 288 MPV 9.7 Immature Gran % (Auto) 0.100 Neut % (Auto) 78.8 H Lymph % (Auto) 9.5 L [place] % (Auto) 10.1 H Eos % (Auto) 1.2 Baso % (Auto) 0.3 Absolute Neuts (auto) 7.3 Absolute Lymphs (auto) 0.89 Total Counted Not Reportable PT 14.5 INR 1.1 Sodium 144 Potassium 3.9 Chloride 109 H Carbon Dioxide 25.0 Anion Gap 10 BUN 22 H Creatinine 1.78 H Estim Creat Clear Calc 23.60 Est GFR (MDRD) Af Amer 35 L Est GFR (MDRD) Non-Af 29 L BUN/Creatinine Ratio 12.4 Glucose 131 H Calcium 8.7 Troponin I 0.038 B-Natriuretic Peptide 09/15/18 12:05 WBC RBC Hgb Hct MCV MCH MCHC RDW RDW Differential Plt Count MPV Immature Gran % (Auto) Neut % (Auto) Lymph % (Auto) [place] % (Auto) Eos % (Auto) Baso % (Auto) Absolute Neuts (auto) Absolute Lymphs (auto) Total Counted PT INR Sodium Potassium Chloride Carbon Dioxide Anion Gap BUN Creatinine Estim Creat Clear Calc Est GFR (MDRD) Af Amer Est GFR (MDRD) Non-Af BUN/Creatinine Ratio Glucose Calcium Troponin I B-Natriuretic Peptide 618.3 H Clinical Impression(s) from Imaging Studies Chest X-Ray 09/15/18 11:37 IMPRESSION: Suspicious mild CHF when compared to 08/18/2018. Electronically Signed: Alexis Millan MD at 12:55 EST , Service support , Assessment/Plan This is an 82 years old female patient presented to the emergency room because of exertional shortness of breath and she was found to have chest x-ray findings consistent with acute on chronic diastolic CHF and she is being admitted for treatment. #1 acute on chronic diastolic CHF/preserved ejection fraction: 6 reviewed, BNP is elevated. EKG revealed sinus rhythm with marketed sinus arrhythmia. Troponin is negative. She had 2D echocardiogram back on November, that revealed ejection fraction of 60%, pulmonary artery pressure of 59 consistent with moderate pulmonary hypertension. She had nuclear stress test on April, that revealed no evidence of stress-induced myocardial perfusion changes and her ejection fraction was 57%. Plan: Admit to PCU, cardiac monitoring, serial cardiac enzymes, fluid restriction to less than 1500 cc daily, IV Lasix twice daily, continue hydralazine and aspirin, repeat CBC and BMP tomorrow morning. Incentive spirometer, bronchodilators, and Protopic chart, PT OT evaluation and treatment. #2 COPD/chronic hypoxic respiratory failure: Patient has been on home oxygen at 4 L. At this time, she is dyspneic and tachypneic, on 4 L. Plan for IV diuresis, bronchodilators, incentive spirometer, chest physiotherapy. #3 stage III chronic kidney disease: Baseline creatinine has been around 1.2-1.8 mg/dL. Admission creatinine is 1.78, stable at baseline. Expect creatinine to go up with IV diuresis, repeat BMP tomorrow morning. #4 hypertension: Blood pressure slightly elevated, continue felodipine and hydralazine, IV Lasix. #5 gout: Stable, no acute issues. She is not on any medication for maintenance. #6 history of renal cell carcinoma: Status post nephrectomy, kidney function stable as above. #7 history of TIA: Stable, continue aspirin. #8 DVT prophylaxis: Subcu heparin. This note was generated with [employer] dictation software. It may contain incorrect words, spelling, and punctuation that were not noted in checking the note before signing. Code Visit Inpatient E&M: 85911 Init Hosp L3
[2018-09-15] MEDS: Heparin Injection (Vial) 5,000 UNIT/ML VIAL 5000 UNIT SC ×2 (16:06→21:35)
[2018-09-15] MEDS: Acetaminophen 325 MG Tablet 650 MG PO (17:12)
[2018-09-15] MEDS: hydrALAZINE 25 MG Tablet PO ×2 (18:14→22:50)
[2018-09-15] MEDS: Ipratropium/Albuterol Sulfate 3 ML AMPUL.NEB INHALATION (20:26)
[2018-09-16] VITALS (22 sets, daily range): BP systolic 142–167; BP diastolic 63–91; PULSE 88–120; RESP 16–28; TEMP 36.6–37.1; O2SAT 92–95
[2018-09-16] MEDS: hydrALAZINE 20 MG/ML Vial 10 MG IV (01:21)
[2018-09-16] MEDS: 0.9% NaCl Peripheral Flush Adult/Peds IV ×3 (01:22→18:26)
[2018-09-16] MEDS: Ipratropium/Albuterol Sulfate 3 ML AMPUL.NEB INHALATION ×4 (01:35→18:46)
--- NOTE | 2018-09-16 05:55 | EKG12_ITS ---
Test Reason : AM EKG Blood Pressure : / mmHG Vent. Rate : 105 BPM Atrial Rate : 105 BPM P-R Int : 184 ms QRS Dur : 084 ms QT Int : 340 ms P-R-T Axes : 068 064 061 degrees QTc Int : 449 ms Sinus tachycardia Otherwise normal ECG When compared with ECG of 15-SEP-2018 11:53, MANUAL COMPARISON REQUIRED, DATA IS UNCONFIRMED Confirmed by JAYESH SHELDON, ZACH ([id number]), supervising editor news reel SUNSHINE STODDARD ([id number]) on 09/20/2018 10:20:35 AM Referred By: DR WILKINS Confirmed By:ZACH MCCONNELL MD
[2018-09-16] MEDS: hydrALAZINE 25 MG Tablet PO ×3 (06:38→22:20)
[2018-09-16] MEDS: Heparin Injection (Vial) 5,000 UNIT/ML VIAL 5000 UNIT SC ×3 (06:40→22:23)
[2018-09-16] MEDS: Acetaminophen 325 MG Tablet 650 MG PO ×2 (06:44→14:53)
[2018-09-16 07:08] LABS: Absolute Lymphocyte Count 1.17 X10^3/ul (0.83-4.51); Basophil# 0.04 X10^3/uL; Basophil% 0.5 % (0-1); Eosinophil# 0.11 X10^3/uL; Eosinophils% 1.3 % (0-5); Hematocrit 39.7 % (37-47); Hemoglobin 12.5 g/dl (12.0-15.0); Lymphocyte # 1.17 X10^3/ul (4.0); Mean Corp Hgb Conc 31.5 g/gl (32-36); Mean Corpuscular Hgb 28.3 pg (27.0-32.0); Monocyte# 1.01 X10^3/uL; Monocyte% 12.1 % (0-10); Neutrophil # 6.02 X10^3/uL (2.7-7.7); Neutrophil % 71.7 % (47-70); POSITIVE COUNT NO; POSITIVE DIFFERENTIAL NO; POSITIVE MORPHOLOGY NO; Platelet Count 289 K/mm3 (150-450); RBC Distribution Width CV 15.9 % (11.6-14.6); Red Blood Count 4.41 M/mm3 (4.2-5.4); White Blood Count 8.4 K/mm3 (4.4-11.0)
[2018-09-16 07:26] LABS: Anion Gap 10 (5-15); BUN 20 mg/dL (7-18); BUN/Creat Ratio 12.7 RATIO (10-20); Calcium,Total 8.7 mg/dL (8.5-10.1); Chloride 109 mmol/L (98-107); Creatinine, Serum 1.58 mg/dL (0.55-1.02); EST Glomerular Filtration Rate 33 mL/min (>60); Est Glom Filt Rate - Afr Amer 40 mL/min (>60); Estimated Creatinine Clearance 26.58 ml/min; Glucose 101 mg/dL (74-106); Magnesium 2.1 mg/dL (1.6-2.6); Potassium 3.8 mmol/L (3.5-5.1); Sodium Level 143 mmol/L (136-145)
--- NOTE | 2018-09-16 07:55 | PCM.PROGNOTE ---
Subjective: Chief complaint: Follow-up after admission for acute on chronic diastolic CHF. Patient seen and examined. No acute events overnight. This morning, she complained of headache. Shortness of breath is getting better, still having mild cough. Denied chest pain. Her vital signs are stable. - Physical Exam General: Alert, Oriented x3, Cooperative, No apparent distress HEENT: Atraumatic, PERRLA, EOMI, Normocephalic Oral: Moist Mucosa, No Gingival or Mucosal Lesions/ Ulcerations Neck: Supple, No JVD, Negative Carotid Bruits, Trachea Midline, Thyroid Normal Size and Texture Lungs: No rhonchi, No wheeze, Diminished, Rales, - - Decreased breath sounds bilateral, bilateral faint basal crackles. Cardiovascular: Regular rate, Regular Rhythm, Normal S1, Normal S2, PMI Normal Abdomen: Bowel Sounds Present, Soft, Non Tender, Non-Distended, No Hepato-splenomegaly Extremities: No clubbing, No cyanosis, No edema Skin: No rashes, No breakdown Lymphatic: No Cervical, Supraclavicular, or Inguinal Adenopathy Neurological: Cranial nerves II-XII grossly intact, Neuro grossly intact Psych/Mental Status: Normal Affect, Appropriate, Alert and oriented to time, place, person, mood and affect Vital Signs Temp Pulse Resp BP Pulse Ox 98.2 F 102 H 20 H 143/84 H 94 09/16/18 06:34 09/16/18 07:07 09/16/18 06:34 09/16/18 06:38 09/16/18 06:34 Oxygen Flow Rate (L/min) 3 Oxygen Delivery Method Nasal Cannula Weight: 236 lb 8.896 oz Body Mass Index (BMI) 38.8 Intake and Output for Last 24 Hours 09/14/18 09/15/18 09/16/18 23:59 23:59 23:59 Intake Total 300 / 300 100 / 100 Output Total 1700 / 1700 Balance -1400 / -1400 100 / 100 Laboratory Tests Past 24 Hrs 09/15/18 09/15/18 09/15/18 12:05 12:05 12:05 WBC 9.3 RBC 4.58 Hgb 13.1 Hct 41.1 MCV 89.7 MCH 28.6 MCHC 31.9 L RDW 16.1 H RDW Differential 52.2 H Plt Count 288 MPV 9.7 Immature Gran % (Auto) 0.100 Neut % (Auto) 78.8 H Lymph % (Auto) 9.5 L [place] % (Auto) 10.1 H Eos % (Auto) 1.2 Baso % (Auto) 0.3 Absolute Neuts (auto) 7.3 Absolute Lymphs (auto) 0.89 Total Counted Not Reportable PT 14.5 INR 1.1 Sodium 144 Potassium 3.9 Chloride 109 H Carbon Dioxide 25.0 Anion Gap 10 BUN 22 H Creatinine 1.78 H Estim Creat Clear Calc 23.60 Est GFR (MDRD) Af Amer 35 L Est GFR (MDRD) Non-Af 29 L BUN/Creatinine Ratio 12.4 Glucose 131 H Calcium 8.7 Magnesium Troponin I 0.038 B-Natriuretic Peptide 09/15/18 09/15/18 09/15/18 12:05 15:33 17:59 WBC RBC Hgb Hct MCV MCH MCHC RDW RDW Differential Plt Count MPV Immature Gran % (Auto) Neut % (Auto) Lymph % (Auto) [place] % (Auto) Eos % (Auto) Baso % (Auto) Absolute Neuts (auto) Absolute Lymphs (auto) Total Counted PT INR Sodium Potassium Chloride Carbon Dioxide Anion Gap BUN Creatinine Estim Creat Clear Calc Est GFR (MDRD) Af Amer Est GFR (MDRD) Non-Af BUN/Creatinine Ratio Glucose Calcium Magnesium Troponin I 0.051 H 0.056 H B-Natriuretic Peptide 618.3 H 09/16/18 09/16/18 06:45 06:45 WBC 8.4 RBC 4.41 Hgb 12.5 Hct 39.7 MCV 90.0 MCH 28.3 MCHC 31.5 L RDW 15.9 H RDW Differential 52.0 H Plt Count 289 MPV 10.0 Immature Gran % (Auto) 0.400 Neut % (Auto) 71.7 H Lymph % (Auto) 14.0 L [place] % (Auto) 12.1 H Eos % (Auto) 1.3 Baso % (Auto) 0.5 Absolute Neuts (auto) 6.0 Absolute Lymphs (auto) 1.17 Total Counted Not Reportable PT INR Sodium 143 Potassium 3.8 Chloride 109 H Carbon Dioxide 24.0 Anion Gap 10 BUN 20 H Creatinine 1.58 H Estim Creat Clear Calc 26.58 Est GFR (MDRD) Af Amer 40 L Est GFR (MDRD) Non-Af 33 L BUN/Creatinine Ratio 12.7 Glucose 101 Calcium 8.7 Magnesium 2.1 Troponin I B-Natriuretic Peptide Medical Necessity - Tobacco Use Smoking Status: Former smoker Assessment/Plan This is an 82 years old female patient presented to the emergency room because of exertional shortness of breath and she was found to have chest x-ray findings consistent with acute on chronic diastolic CHF and she is being admitted for treatment. #1 acute on chronic diastolic CHF/preserved ejection fraction: She is on IV Lasix, continued on oral hydralazine. Troponin is minimally elevated but patient denies any chest pain which could be due to heart strain secondary to acute CHF. Her symptoms started to improve. She had 2D echocardiogram back on November, that revealed ejection fraction of 60%, pulmonary artery pressure of 59 consistent with moderate pulmonary hypertension. She had nuclear stress test on April, that revealed no evidence of stress-induced myocardial perfusion changes and her ejection fraction was 57%. Plan to continue same treatment, repeat BMP tomorrow morning. #2 COPD/chronic hypoxic respiratory failure: Patient has been on home oxygen at 4 L. Shortness of breath is getting better, pulse ox is maintained on 3 L at this time. Plan as above. #3 stage III chronic kidney disease: Baseline creatinine has been around 1.2-1.8 mg/dL. Admission creatinine is 1.78, today's creatinine is 1.58, stable at baseline. #4 hypertension: Blood pressure under better control, continue felodipine and hydralazine, IV Lasix. #5 gout: Stable, no acute issues. She is not on any medication for maintenance. #6 history of renal cell carcinoma: Status post nephrectomy, kidney function stable as above. #7 history of TIA: Stable, continue aspirin. #8 DVT prophylaxis: Subcu heparin. This note was generated with [employer] dictation software. It may contain incorrect words, spelling, and punctuation that were not noted in checking the note before signing. Code Visit Inpatient E&M: 56242 Subs Hosp L2
[2018-09-16] MEDS: amLODIPine 10 MG Tablet PO (08:17)
[2018-09-16] MEDS: Aspirin 325 MG Tablet PO (08:17)
[2018-09-16] MEDS: Furosemide 40 MG/4 ML Vial IV ×2 (08:17→18:26)
--- NOTE | 2018-09-16 09:41 | CASEMGMT ---
BRUNO JEFFERY Re-admission note: Admitted 08/16/18 through -08/19/18 for dx: Acute CHF and Acute on Chronic Kidney Injury on top of Chronic Kidney Disease. Was already on home O2. Lives with her son, John. Discharged home w/instructions to f/u with her PCP and Dr Andino. Re-admitted 09/15/18 with Acute on Chronic Diastolic CHF. Pt states since discharged home that she has been doing really good until she started becoming short of breath again. States she was taking her medications as prescribed. Pt states she did follow up with her PCP, Dr Mendieta, after being discharged and also saw Dr Andino's SCROLL ASSEMBLER. States next appt with Dr Andino is scheduled for November. She states she uses 4L/M oxygen @ home and gets it through [facility] [facility]. Denies needs on discharge, stating she is very independent @ home and has good family support. States she is able to shower independently and that she waits until her son returns home from work before showering just in case I would need something or would fall. Denies need for HHC or therapy. Noted HCPOA paperwork on file, but LW not found. Pt made aware. States she will see if her son can bring it in. CM to follow for any discharge planning/needs that may arise. Plan: Home Rolando STEELE RN, CM
[2018-09-16] MEDS: dilTIAZem 60 MG Tablet PO ×2 (14:53→22:24)
--- NOTE | 2018-09-16 15:06 | CASEMGMT ---
Patient has a healthcare poa on file. She has a healthcare lw that is not on file, but will have her son bring it in. Bella LACEY SCIENTIFIC SOFTWARE DEVELOPER
[2018-09-16 16:02] LABS: Uric Acid 10.8 mg/dL (2.6-6.0)
[2018-09-16] MEDS: predniSONE 20 MG Tablet 40 MG PO (16:02)
[2018-09-17] VITALS (17 sets, daily range): BP systolic 131–146; BP diastolic 54–66; PULSE 74–107; RESP 17–24; TEMP 36.4–36.9; O2SAT 90–97
[2018-09-17] MEDS: Ipratropium/Albuterol Sulfate 3 ML AMPUL.NEB INHALATION ×4 (00:52→18:32)
[2018-09-17] MEDS: hydrALAZINE 25 MG Tablet PO ×3 (04:55→21:27)
[2018-09-17] MEDS: dilTIAZem 60 MG Tablet PO ×3 (04:56→21:27)
[2018-09-17] MEDS: Heparin Injection (Vial) 5,000 UNIT/ML VIAL 5000 UNIT SC ×3 (04:56→21:27)
[2018-09-17 06:45] LABS: Anion Gap 11 (5-15); BUN 30 mg/dL (7-18); BUN/Creat Ratio 15.2 RATIO (10-20); Calcium,Total 8.1 mg/dL (8.5-10.1); Chloride 108 mmol/L (98-107); Creatinine, Serum 1.98 mg/dL (0.55-1.02); EST Glomerular Filtration Rate 26 mL/min (>60); Est Glom Filt Rate - Afr Amer 31 mL/min (>60); Estimated Creatinine Clearance 21.21 ml/min; Glucose 134 mg/dL (74-106); Magnesium 2.1 mg/dL (1.6-2.6); Potassium 3.8 mmol/L (3.5-5.1); Sodium Level 142 mmol/L (136-145)
--- NOTE | 2018-09-17 08:12 | PN_ITS ---
Subjective: Chief complaint: Follow-up after admission for acute on chronic diastolic CHF. After admission, patient started complaining of right foot pain, found to have elevated uric acid and attributed to acute gouty arthritis of the right foot. Patient seen and examined. No acute events overnight. Shortness of breath continued to improve. Complaining of mild cough. Yesterday, she started complaining of right foot pain. Her uric acid was elevated and she does have a history of recurrent gout. She was diagnosed with gout and started on prednison e. Her vital signs are stable. - Physical Exam General: Alert, Oriented x3, Cooperative, No apparent distress HEENT: Atraumatic, PERRLA, EOMI, Normocephalic Oral: Moist Mucosa, No Gingival or Mucosal Lesions/ Ulcerations Neck: Supple, No JVD, Negative Carotid Bruits, Trachea Midline, Thyroid Normal Size and Texture Lungs: Clear to auscultation, No wheeze, No rales, Diminished, Rhonchi Cardiovascular: Regular rate, Regular Rhythm, Normal S1, Normal S2, PMI Normal Abdomen: Bowel Sounds Present, Soft, Non Tender, Non-Distended, No Hepato- splenomegaly Extremities: No clubbing, No cyanosis, No edema Skin: No rashes, No breakdown Musculoskeletal: - - Plantar foot tenderness. Minimal redness at the first metatarsophalangeal joint. Lymphatic: No Cervical, Supraclavicular, or Inguinal Adenopathy Neurological: Cranial nerves II-XII grossly intact, Neuro grossly intact Psych/Mental Status: Normal Affect, Appropriate, Alert and oriented to time, place, person, mood and affect Vital Signs Temp Pulse Resp BP Pulse Ox 98.1 F 81 18 131/61 H 90 09/17/18 04:20 09/17/18 07:14 09/17/18 06:59 09/17/18 04:55 09/17/18 06:59 Oxygen Flow Rate (L/min) 3 Oxygen Delivery Method Nasal Cannula Weight: 238 lb 12.17 oz Body Mass Index (BMI) 38.8 Intake and Output for Last 24 Hours 09/15/18 09/16/18 09/17/18 23:59 23:59 23:59 Intake Total 300 / 300 890 / 890 100 / 100 Output Total 1700 / 1700 1025 / 1025 150 / 150 Balance -1400 / -1400 -135 / -135 -50 / -50 Laboratory Tests Past 24 Hrs 09/16/18 09/17/18 06:45 05:10 Sodium 142 Potassium 3.8 Chloride 108 H Carbon Dioxide 23.0 Anion Gap 11 BUN 30 H Creatinine 1.98 H Estim Creat Clear Calc 21.21 Est GFR (MDRD) Af Amer 31 L Est GFR (MDRD) Non-Af 26 L BUN/Creatinine Ratio 15.2 Glucose 134 H Uric Acid 10.8 H Calcium 8.1 L Magnesium 2.1 Medical Necessity - Tobacco Use Smoking Status: Former smoker Assessment/Plan This is an 82 years old female patient presented to the emergency room because of exertional shortness of breath and she was found to have chest x-ray findings consistent with acute on chronic diastolic CHF and she is being admitted for treatment. #1 acute on chronic diastolic CHF/preserved ejection fraction: She is on IV Lasix, continued on oral hydralazine. Symptoms improved, pulse ox maintained on 3 L of oxygen. She had 2D echocardiogram back on November, that revealed ejection fraction of 60%, pulmonary artery pressure of 59 consistent with moderate pulmonary hypertension. Serum creatinine start to go up. Her weight decreased by 11 pounds. Plan: DC IV Lasix, start oral Lasix, repeat BMP tomorrow, anticipate discharge home tomorrow. #2 acute gouty arthritis of the right foot/right big toe: Uric acid was elevated. Patient has history of recurrent gouty arthritis. She was started on prednisone yesterday, symptoms are improving. Plan to continue prednisone for 5 days. #2 COPD/chronic hypoxic respiratory failure: Patient has been on home oxygen at 4 L. Shortness of breath is getting better, pulse ox is maintained on 3 L at this time. Plan as above. #3 stage III chronic kidney disease: Baseline creatinine has been around 1.2-1.8 mg/dL. Admission creatinine is 1.78, today's creatinine is 1.98, start to go up because of IV Lasix, plan as above. #4 hypertension: Blood pressure under better control, continue felodipine and hydralazine. #5 gout: Stable, no acute issues. She is not on any medication for maintenance. #6 history of renal cell carcinoma: Status post nephrectomy, kidney function started to go up, start to DC IV Lasix, start oral Lasix. #7 history of TIA: Stable, continue aspirin. #8 DVT prophylaxis: Subcu heparin. This note was generated with [employer] dictation software. It may contain incorrect words, spelling, and punctuation that were not noted in checking the note before signing. Code Visit Inpatient E&M: 78554 Subs Hosp L2
[2018-09-17] MEDS: amLODIPine 10 MG Tablet PO (09:17)
[2018-09-17] MEDS: predniSONE 20 MG Tablet 40 MG PO (09:18)
[2018-09-17] MEDS: Furosemide 40 MG Tablet PO (09:18)
[2018-09-17] MEDS: Aspirin 325 MG Tablet PO (09:18)
[2018-09-17] MEDS: Furosemide 20 MG Tablet PO (21:28)
[2018-09-18] VITALS (19 sets, daily range): BP systolic 131–158; BP diastolic 54–95; PULSE 69–96; RESP 16–20; TEMP 36.5–36.8; O2SAT 93–95
[2018-09-18] MEDS: Ipratropium/Albuterol Sulfate 3 ML AMPUL.NEB INHALATION ×4 (00:02→19:32)
[2018-09-18] MEDS: hydrALAZINE 25 MG Tablet PO ×3 (05:48→21:39)
[2018-09-18] MEDS: dilTIAZem 60 MG Tablet PO ×3 (05:49→21:39)
[2018-09-18] MEDS: Heparin Injection (Vial) 5,000 UNIT/ML VIAL 5000 UNIT SC ×3 (05:49→21:39)
[2018-09-18 07:04] LABS: Anion Gap 11 (5-15); BUN 46 mg/dL (7-18); BUN/Creat Ratio 18.5 RATIO (10-20); Calcium,Total 8.4 mg/dL (8.5-10.1); Chloride 106 mmol/L (98-107); Creatinine, Serum 2.48 mg/dL (0.55-1.02); EST Glomerular Filtration Rate 20 mL/min (>60); Est Glom Filt Rate - Afr Amer 24 mL/min (>60); Estimated Creatinine Clearance 16.94 ml/min; Glucose 120 mg/dL (74-106); Potassium 4.3 mmol/L (3.5-5.1); Sodium Level 142 mmol/L (136-145)
--- NOTE | 2018-09-18 08:14 | PN_ITS ---
Subjective: Chief complaint: Follow-up after admission for acute on chronic diastolic CHF. After admission, patient started complaining of right foot pain, found to have elevated uric acid and attributed to acute gouty arthritis of the right foot. Patient seen and examined. No acute events overnight. Her symptoms continued to improve, having less shortness of breath. Right foot pain improved. Her vital signs are stable. - Physical Exam General: Alert, Oriented x3, Cooperative, No apparent distress HEENT: Atraumatic, PERRLA, EOMI, Normocephalic Oral: Moist Mucosa Neck: Supple, No JVD, Negative Carotid Bruits, Trachea Midline, Thyroid Normal Size and Texture Lungs: Clear to auscultation, No wheeze, No rales, Diminished, Rhonchi Cardiovascular: Regular rate, Regular Rhythm, Normal S1, Normal S2, PMI Normal Abdomen: Bowel Sounds Present, Soft, Non Tender, Non-Distended, No Hepato- splenomegaly, Obese Extremities: No clubbing, No cyanosis, No edema Skin: No rashes, No breakdown Lymphatic: No Cervical, Supraclavicular, or Inguinal Adenopathy Neurological: Cranial nerves II-XII grossly intact, Neuro grossly intact Psych/Mental Status: Normal Affect, Appropriate, Alert and oriented to time, place, person, mood and affect Vital Signs Temp Pulse Resp BP Pulse Ox 97.9 F 72 16 154/69 H 95 09/18/18 03:00 09/18/18 06:59 09/18/18 06:59 09/18/18 05:48 09/18/18 06:59 Oxygen Flow Rate (L/min) 3 Oxygen Delivery Method Nasal Cannula Weight: 242 lb 4.608 oz Body Mass Index (BMI) 38.8 Intake and Output for Last 24 Hours 09/16/18 09/17/18 09/18/18 23:59 23:59 23:59 Intake Total 890 / 890 420 / 420 300 / 300 Output Total 1025 / 1025 400 / 400 100 / 100 Balance -135 / -135 20 / 20 200 / 200 Laboratory Tests Past 24 Hrs 09/18/18 05:12 Sodium 142 Potassium 4.3 Chloride 106 Carbon Dioxide 25.0 Anion Gap 11 BUN 46 H Creatinine 2.48 H Estim Creat Clear Calc 16.94 Est GFR (MDRD) Af Amer 24 L Est GFR (MDRD) Non-Af 20 L BUN/Creatinine Ratio 18.5 Glucose 120 H Calcium 8.4 L Medical Necessity - Tobacco Use Smoking Status: Former smoker Assessment/Plan This is an 82 years old female patient presented to the emergency room because of exertional shortness of breath and she was found to have chest x-ray findings consistent with acute on chronic diastolic CHF and she is being admitted for treatment. #1 acute on chronic diastolic CHF/preserved ejection fraction: She is on oral Lasix, continued on oral hydralazine. Symptoms improved, pulse ox maintained on 3 L of oxygen. She had 2D echocardiogram back on November, that revealed ejection fraction of 60%, pulmonary artery pressure of 59 consistent with moderate pulmonary hypertension. Serum creatinine continued to worsen in spite of discontinuing IV Lasix. Plan: DC the night dose of Lasix, continue Lasix 40 mg p.o. daily, repeat BMP tomorrow morning, DC home tomorrow morning. #2 acute gouty arthritis of the right foot/right big toe: Uric acid was elevated. Patient has history of recurrent gouty arthritis. She was started on prednisone yesterday, symptoms are improving. Plan to continue prednisone for 5 days. #2 COPD/chronic hypoxic respiratory failure: Patient has been on home oxygen at 4 L. Shortness of breath is getting better, pulse ox is maintained on 3 L at this time. Plan as above. #3 Acute kidney injury on top of stage III chronic kidney disease: Baseline creatinine has been around 1.2-1.8 mg/dL. Admission creatinine is 1.78, today's creatinine is 2.48 and it is likely because of Lasix. Plan as above. #4 hypertension: Blood pressure under better control, continue felodipine and hydralazine. #5 gout: Stable, no acute issues. She is not on any medication for maintenance. #6 history of renal cell carcinoma: Status post nephrectomy, kidney function continued to worsen, plan as above. #7 history of TIA: Stable, continue aspirin. #8 DVT prophylaxis: Subcu heparin. This note was generated with [employer] dictation software. It may contain incorrect words, spelling, and punctuation that were not noted in checking the note before signing. Code Visit Inpatient E&M: 96544 Subs Hosp L2
[2018-09-18] MEDS: Aspirin 325 MG Tablet PO (09:01)
[2018-09-18] MEDS: predniSONE 20 MG Tablet 40 MG PO (09:02)
[2018-09-18] MEDS: Magnesium Hydroxide 30 ML UDC PO (09:02)
[2018-09-18] MEDS: Furosemide 40 MG Tablet PO (09:02)
[2018-09-18] MEDS: amLODIPine 10 MG Tablet PO (09:02)
[2018-09-19] VITALS (22 sets, daily range): BP systolic 136–150; BP diastolic 55–88; PULSE 71–91; RESP 16–26; TEMP 36.2–36.7; O2SAT 91–95
[2018-09-19] MEDS: dilTIAZem 60 MG Tablet PO ×3 (05:24→21:00)
[2018-09-19] MEDS: hydrALAZINE 25 MG Tablet PO ×3 (05:24→20:59)
[2018-09-19] MEDS: Heparin Injection (Vial) 5,000 UNIT/ML VIAL 5000 UNIT SC ×3 (05:24→20:59)
[2018-09-19 06:49] LABS: Anion Gap 12 (5-15); BUN 67 mg/dL (7-18); BUN/Creat Ratio 21.8 RATIO (10-20); Calcium,Total 8.5 mg/dL (8.5-10.1); Chloride 107 mmol/L (98-107); Creatinine, Serum 3.08 mg/dL (0.55-1.02); EST Glomerular Filtration Rate 15 mL/min (>60); Est Glom Filt Rate - Afr Amer 19 mL/min (>60); Estimated Creatinine Clearance 13.64 ml/min; Glucose 121 mg/dL (74-106); Sodium Level 142 mmol/L (136-145)
[2018-09-19] MEDS: Ipratropium/Albuterol Sulfate 3 ML AMPUL.NEB INHALATION ×3 (07:37→19:16)
--- NOTE | 2018-09-19 08:18 | PN_ITS ---
Subjective: Chief complaint: Follow-up after admission for acute on chronic diastolic CHF, acute gouty arthritis of the right foot and acute kidney injury on top of stage III chronic kidney disease. Patient seen and examined. No acute events overnight. Today, she complained of worsening right foot pain. Breathing is stable. Her vital signs are stable. - Physical Exam General: Alert, Oriented x3, Cooperative, No apparent distress HEENT: Atraumatic, PERRLA, EOMI, Normocephalic Oral: Moist Mucosa, No Gingival or Mucosal Lesions/ Ulcerations Neck: Supple, No JVD, Negative Carotid Bruits, Trachea Midline, Thyroid Normal Size and Texture Lungs: Clear to auscultation, No rhonchi, No wheeze, No rales, Diminished Cardiovascular: Regular rate, Regular Rhythm, Normal S1, Normal S2, PMI Normal Abdomen: Bowel Sounds Present, Soft, Non Tender, Non-Distended Extremities: No clubbing, No cyanosis, No edema Skin: No rashes, No breakdown Lymphatic: No Cervical, Supraclavicular, or Inguinal Adenopathy Neurological: Cranial nerves II-XII grossly intact, Neuro grossly intact Psych/Mental Status: Normal Affect, Appropriate, Alert and oriented to time, place, person, mood and affect Vital Signs Temp Pulse Resp BP Pulse Ox 97.8 F 76 16 139/55 H 91 09/19/18 05:20 09/19/18 07:37 09/19/18 07:37 09/19/18 05:24 09/19/18 07:37 Oxygen Flow Rate (L/min) 3 Oxygen Delivery Method Nasal Cannula Weight: 243 lb 13.3 oz Body Mass Index (BMI) 38.8 Intake and Output for Last 24 Hours 09/17/18 09/18/18 09/19/18 23:59 23:59 23:59 Intake Total 420 / 420 1160 / 1160 160 / 160 Output Total 400 / 400 500 / 500 150 / 150 Balance 660 / 660 10 / 10 Laboratory Tests Past 24 Hrs 09/19/18 05:10 Sodium 142 Potassium 5.0 Chloride 107 Carbon Dioxide 23.0 Anion Gap 12 BUN 67 H Creatinine 3.08 H Estim Creat Clear Calc 13.64 Est GFR (MDRD) Af Amer 19 L Est GFR (MDRD) Non-Af 15 L BUN/Creatinine Ratio 21.8 H Glucose 121 H Calcium 8.5 Medical Necessity - Tobacco Use Smoking Status: Former smoker Assessment/Plan This is an 82 years old female patient presented to the emergency room because of exertional shortness of breath and she was found to have chest x-ray findings consistent with acute on chronic diastolic CHF, also found to have acute kidney injury on top of stage III chronic kidney disease and she developed acute gouty arthritis of the right foot after admission. #1 acute on chronic diastolic CHF/preserved ejection fraction: IV Lasix discontinued and oral Lasix dose decreased, she is down to her regular dose of Lasix at home at 40 mg p.o. daily, continued on oral hydralazine. Symptoms imp roved, pulse ox maintained on 3 L of oxygen. She had 2D echocardiogram back on November, that revealed ejection fraction of 60%, pulmonary artery pressure of 59 consistent with moderate pulmonary hypertension. Serum creatinine continued to worsen in spite of discontinuing IV Lasix. Plan: Continue Lasix, nephrology consult. #2 acute gouty arthritis of the right foot/right big toe: She is on prednisone. Uric acid was elevated. Patient has history of recurrent gouty arthritis. Today, she reported worsening of right foot pain. Plan to continue same treatment. #2 COPD/chronic hypoxic respiratory failure: Patient has been on home oxygen at 4 L. Shortness of breath is getting better, pulse ox is maintained on 3 L at this time. Plan as above. #3 Acute kidney injury on top of stage III chronic kidney disease: Baseline creatinine has been around 1.2-1.8 mg/dL. Admission creatinine is 1.78, today's creatinine is 3.08, worse than yesterday. It is likely because of diuresis with Lasix in addition to that patient has only single kidney. Plan: Nephrology consult. #4 hypertension: Blood pressure under better control, continue felodipine and hydralazine. #5 gout: Stable, no acute issues. She is not on any medication for maintenance because she has an active gouty arthritis. #6 history of renal cell carcinoma: Status post nephrectomy, kidney function continued to worsen, plan as above. #7 history of TIA: Stable, continue aspirin. #8 DVT prophylaxis: Subcu heparin. This note was generated with [employer] dictation software. It may contain incorrect words, spelling, and punctuation that were not noted in checking the note before signing. Code Visit Inpatient E&M: 32388 Subs Hosp L2
[2018-09-19] MEDS: Aspirin 325 MG Tablet PO (08:53)
[2018-09-19] MEDS: predniSONE 20 MG Tablet 40 MG PO (08:54)
[2018-09-19] MEDS: amLODIPine 10 MG Tablet PO (10:34)
[2018-09-19] MEDS: Furosemide 40 MG Tablet PO (10:34)
[2018-09-19] MEDS: Magnesium Hydroxide 30 ML UDC PO (10:38)
--- NOTE | 2018-09-19 16:05 | PCM.CONS.R ---
Problem List (1) Acute kidney injury superimposed on chronic kidney disease Status: Chronic Consultation - Renal PCP/ Referring MD: Requesting physician: [] Primary care physician: Dustin Mendieta MD - History of Present Illness History of Present Illness: The patient is a 82 year old F past medical history of renal cell carcinoma status post nephrectomy , chronic kidney disease stage III , chronic respiratory failure , pulmonary hypertension , gout , obesity , and TIA . Patient presented with progressive shortness of breath . Patient was taken Lasix daily at home . She says she continued taking Lasix at home. Chest x-ray at admission shows mild vascular congestion. Last echocardiogram showed ejection fraction 60%, diastolic dysfunction and moderate pulmonary hypertension. Tricuspid valve regurgitation +2. Patient initially was treated with IV Lasix while inpatient then switched to p.o. Lasix for the last 3 days. Renal team was consulted for worsening kidney function. Patient's weight remained the same no improvement. She still shortness of breath. Still requiring oxygen. No NSAIDs used. No IV contrast exposure. Currently taking Lasix 40 mg once a day. Urine output 400-500 for the last 3 days. Review of system: 12 system review is negative except for shortness of breath and fatigue [] - Allergies Allergies: Allergies clindamycin [From Cleocin] Allergy (Verified 09/15/18 10:54) Unknown oxycodone HCl [From OxyContin] Allergy (Verified 09/15/18 10:54) Anaphylaxis Sulfa (Sulfonamide Antibiotics) Allergy (Verified 09/15/18 10:54) Anaphylaxis vancomycin Allergy (Verified 09/15/18 10:54) Hives guaifenesin [From Entex LA] Adverse Reaction (Verified 09/15/18 10:54) Unknown phenylephrine [From Entex LA] Adverse Reaction (Verified 09/15/18 10:54) Unknown phenylpropanolamine [From Entex LA] Adverse Reaction (Verified 09/15/18 10:54) Unknown BETA BLOCKERS Adverse Reaction (Uncoded 09/15/18 10:54) Unknown - Current Medications Current Medications: Current Medications Acetaminophen (Tylenol) 650 mg PO Q6H PRN PRN PRN Reason: Mild Pain (scale 0-3)/T>100.7 Last Admin: 09/16/18 14:53 Dose: 650 mg Hydrocodone Bitart/Acetaminophen ([place] 5mg-325mg) 1 tablet PO TID PRN PRN PRN Reason: PAIN Albuterol Sulfate (Ventolin Aerosols) 2.5 mg INHALATION Q4H PRN PRN PRN Reason: Shortness of breath, wheezing Albuterol/Ipratropium (Duoneb) 3 ml INHALATION Q6H.RT [facility] Last Admin: 09/19/18 13:04 Dose: 3 ml Amlodipine Besylate (Norvasc) 10 mg PO DAILY [facility] Last Admin: 09/19/18 10:34 Dose: 10 mg Aspirin (Aspirin) 325 mg PO DAILY@0800 [facility] Last Admin: 09/19/18 08:53 Dose: 325 mg Diltiazem HCl (Cardizem) 60 mg PO Q8 [facility] Last Admin: 09/19/18 14:18 Dose: 60 mg Estrogens Conjugated (Premarin) 0.3 mg PO QHS [facility] Last Admin: 09/18/18 21:39 Dose: 0.3 mg Furosemide (Lasix) 60 mg IV BID@1000,1800 [facility] Heparin Sodium (Porcine) (Heparin Na) 5,000 unit SC Q8 [facility] Last Admin: 09/19/18 14:18 Dose: 5,000 unit Hydralazine HCl (Apresoline) 25 mg PO TID [facility] Last Admin: 09/19/18 14:18 Dose: 25 mg Hydralazine HCl (Apresoline Iv) 10 mg IV Q8H PRN PRN PRN Reason: SBP>160 Last Admin: 09/16/18 01:21 Dose: 10 mg Magnesium Hydroxide (Milk Of Magnesia) 30 ml PO DAILY PRN PRN Reason: Constipation Last Admin: 09/19/18 10:38 Dose: 30 ml Medroxyprogesterone Acetate (Cycrin,Provera) 5 mg PO QHS [facility] Ondansetron HCl (Zofran) 4 mg IV Q8H PRN PRN PRN Reason: Nausea Prednisone () 40 mg PO DAILY@0800 [facility] Last Admin: 09/19/18 08:54 Dose: 40 mg Sodium Chloride () 5 - 15 ml IV UD PRN PRN Reason: SALINE FLUSH Last Admin: 09/16/18 18:26 Dose: 10 ml Zolpidem Tartrate (Ambien (Generic)) 5 mg PO QHS PRN PRN PRN Reason: INSOMNIA - Past Medical History Past Medical History (Chronic Problems): Chronic Problems (Last Updated 08/17/18 @ 13:56 by Antonette Brown MD) Acute kidney injury superimposed on chronic kidney disease (Chronic) COPD (chronic obstructive pulmonary disease) (Chronic) Chronic respiratory failure with hypoxia (Chronic) Chronic renal failure, stage 3 (moderate) (Chronic) 3-4 Hormone replacement therapy (Chronic) Pulmonary hypertension (Chronic) PA pressure 57 in November 2017 Stasis dermatitis (Chronic) Obesity, morbid, BMI 40.0-49.9 (Chronic) Gout (Chronic) Hypertension (Chronic) History of TIA (transient ischemic attack) (Chronic) 1998 History of kidney cancer (Chronic) S/P nephrectomy - Past Surgical History Surgical History: - - Tonsillectomy, appendectomy, cholecystectomy, bilateral shoulder rotator cuff repair, right elbow fracture with surgery with pin in place, bilateral total knee replacement. Renal cell carcinoma, Surgery for SBO, Single salpingectomy and oophorectomy for ectopic . - Social History Smoking Status: Former smoker Alcohol: None Drugs: None - Family History Paternal Family History: Family History (Last Reviewed 08/16/18 @ 18:39 by Violeta Dowling DO) Mother CAD (coronary artery disease) Father Colon cancer History Items: Cancer - Pancreatic CA, age 3838 years old., Diabetes, Heart Disease, Hypertension Maternal Family History: Family History (Last Reviewed 08/16/18 @ 18:39 by Violeta Dowling DO) Mother CAD (coronary artery disease) Father Colon cancer History Items: Heart Disease, Hypertension - Physical Exam General: Alert, Oriented x3 HEENT: Atraumatic Oral: Moist Mucosa Neck: Supple, No JVD Lungs: - - Bilateral lung base crackles Cardiovascular: Regular rate, Regular Rhythm, Normal S1 Abdomen: Bowel Sounds Present, Soft, Non Tender Extremities: No clubbing, No cyanosis, - - +1 edema of lower extremities Skin: No rashes Musculoskeletal: No Tenderness to Palpation of Joints or Extremities Lymphatic: No Cervical, Supraclavicular, or Inguinal Adenopathy Neurological: Cranial nerves II-XII grossly intact, Neuro grossly intact Psych/Mental Status: Normal Affect Vital Signs Temp Pulse Resp BP Pulse Ox 97.2 F L 84 26 H 136/75 H 94 09/19/18 10:32 09/19/18 15:13 09/19/18 13:05 09/19/18 14:18 09/19/18 10:32 Oxygen Flow Rate (L/min) 3 Oxygen Delivery Method Nasal Cannula Weight: 110.6 kg Body Mass Index (BMI) 38.8 Intake and Output for Last 24 Hours 09/17/18 09/18/18 09/19/18 23:59 23:59 23:59 Intake Total 420 / 420 1160 / 1160 480 / 480 Output Total 400 / 400 500 / 500 400 / 400 Balance 20 / 20 660 / 660 80 / 80 Laboratory Tests Past 24 Hrs 09/19/18 05:10 Sodium 142 Potassium 5.0 Chloride 107 Carbon Dioxide 23.0 Anion Gap 12 BUN 67 H Creatinine 3.08 H Estim Creat Clear Calc 13.64 Est GFR (MDRD) Af Amer 19 L Est GFR (MDRD) Non-Af 15 L BUN/Creatinine Ratio 21.8 H Glucose 121 H Calcium 8.5 Assessment/Plan 1-acute kidney injury on chronic kidney disease. CKD is most probably from nephrectomy. Baseline creatinine seems around 1.4-1.6. Worsening kidney function is most probably from cardiorenal syndrome. Creatinine has been rising steadily from 1.98->2.4->3.8. Patient is breathing is not better, which is not decreasing. I will increase Lasix dose to 60 mg twice a day. I will continue to monitor kidney function and electrolytes closely while on diuretics. Please avoid MOISES inhibitor or ARB for now. Check renal function in a.m.. 2-hypertension: Blood pressure is well controlled. Continue same blood pressure medication. Please avoid MOISES inhibitor or ARB 3-acute on chronic respiratory failure due to most probably CHF. I will increase Lasix dose as above. Nasal cannula support as per the primary service. Low-salt diet. Limit fluid intake to 50 ounces daily. Thank you for the consult. We will continue to follow
--- NOTE | 2018-09-19 16:11 | CON.PCM_ITS ---
Problem List (1) Acute kidney injury superimposed on chronic kidney disease Status: Chronic Consultation - Renal PCP/ Referring MD: Requesting physician: [] Primary care physician: Dustin Mendieta MD - History of Present Illness History of Present Illness: The patient is a 82 year old F past medical history of renal cell carcinoma status post nephrectomy , chronic kidney disease stage III , chronic respiratory failure , pulmonary hypertension , gout , obesity , and TIA . Patient presented with progressive shortness of breath . Patient was taken Lasix daily at home . She says she continued taking Lasix at home. Chest x-ray at admission shows mild vascular congestion. Last echocardiogram showed ejection fraction 60%, diastolic dysfunction and moderate pulmonary hypertension. Tricu spid valve regurgitation +2. Patient initially was treated with IV Lasix while inpatient then switched to p.o. Lasix for the last 3 days. Renal team was consulted for worsening kidney function. Patient's weight remained the same no improvement. She still shortness of breath. Still requiring oxygen. No NSAIDs used. No IV contrast exposure. Currently taking Lasix 40 mg once a day. Urine output 400-500 for the last 3 days. Review of system: 12 system review is negative except for shortness of breath and fatigue [] - Allergies Allergies: Allergies clindamycin [From Cleocin] Allergy (Verified 09/15/18 10:54) Unknown oxycodone HCl [From OxyContin] Allergy (Verified 09/15/18 10:54) Anaphylaxis Sulfa (Sulfonamide Antibiotics) Allergy (Verified 09/15/18 10:54) Anaphylaxis vancomycin Allergy (Verified 09/15/18 10:54) Hives guaifenesin [From Entex LA] Adverse Reaction (Verified 09/15/18 10:54) Unknown phenylephrine [From Entex LA] Adverse Reaction (Verified 09/15/18 10:54) Unknown phenylpropanolamine [From Entex LA] Adverse Reaction (Verified 09/15/18 10:54) Unknown BETA BLOCKERS Adverse Reaction (Uncoded 09/15/18 10:54) Unknown - Current Medications Current Medications: Current Medications Acetaminophen (Tylenol) 650 mg PO Q6H PRN PRN PRN Reason: Mild Pain (scale 0-3)/T>100.7 Last Admin: 09/16/18 14:53 Dose: 650 mg Hydrocodone Bitart/Acetaminophen ([place] 5mg-325mg) 1 tablet PO TID PRN PRN PRN Reason: PAIN Albuterol Sulfate (Ventolin Aerosols) 2.5 mg INHALATION Q4H PRN PRN PRN Reason: Shortness of breath, wheezing Albuterol/Ipratropium (Duoneb) 3 ml INHALATION Q6H.RT [facility] Last Admin: 09/19/18 13:04 Dose: 3 ml Amlodipine Besylate (Norvasc) 10 mg PO DAILY [facility] Last Admin: 09/19/18 10:34 Dose: 10 mg Aspirin (Aspirin) 325 mg PO DAILY@0800 [facility] Last Admin: 09/19/18 08:53 Dose: 325 mg Diltiazem HCl (Cardizem) 60 mg PO Q8 [facility] Last Admin: 09/19/18 14:18 Dose: 60 mg Estrogens Conjugated (Premarin) 0.3 mg PO QHS [facility] Last Admin: 09/18/18 21:39 Dose: 0.3 mg Furosemide (Lasix) 60 mg IV BID@1000,1800 [facility] Heparin Sodium (Porcine) (Heparin Na) 5,000 unit SC Q8 [facility] Last Admin: 09/19/18 14:18 Dose: 5,000 unit Hydralazine HCl (Apresoline) 25 mg PO TID [facility] Last Admin: 09/19/18 14:18 Dose: 25 mg Hydralazine HCl (Apresoline Iv) 10 mg IV Q8H PRN PRN PRN Reason: SBP>160 Last Admin: 09/16/18 01:21 Dose: 10 mg Magnesium Hydroxide (Milk Of Magnesia) 30 ml PO DAILY PRN PRN Reason: Constipation Last Admin: 09/19/18 10:38 Dose: 30 ml Medroxyprogesterone Acetate (Cycrin,Provera) 5 mg PO QHS [facility] Ondansetron HCl (Zofran) 4 mg IV Q8H PRN PRN PRN Reason: Nausea Prednisone () 40 mg PO DAILY@0800 [facility] Last Admin: 09/19/18 08:54 Dose: 40 mg Sodium Chloride () 5 - 15 ml IV UD PRN PRN Reason: SALINE FLUSH Last Admin: 09/16/18 18:26 Dose: 10 ml Zolpidem Tartrate (Ambien (Generic)) 5 mg PO QHS PRN PRN PRN Reason: INSOMNIA - Past Medical History Past Medical History (Chronic Problems): Chronic Problems (Last Updated 08/17/18 @ 13:56 by Antonette Brown MD) Acute kidney injury superimposed on chronic kidney disease (Chronic) COPD (chronic obstructive pulmonary disease) (Chronic) Chronic respiratory failure with hypoxia (Chronic) Chronic renal failure, stage 3 (moderate) (Chronic) 3-4 Hormone replacement therapy (Chronic) Pulmonary hypertension (Chronic) PA pressure 57 in November 2017 Stasis dermatitis (Chronic) Obesity, morbid, BMI 40.0-49.9 (Chronic) Gout (Chronic) Hypertension (Chronic) History of TIA (transient ischemic attack) (Chronic) 1998 History of kidney cancer (Chronic) S/P nephrectomy - Past Surgical History Surgical History: - - Tonsillectomy, appendectomy, cholecystectomy, bilateral shoulder rotator cuff repair, right elbow fracture with surgery with pin in place, bilateral total knee replacement. Renal cell carcinoma, Surgery for SBO, Single salpingectomy and oophorectomy for ectopic . - Social History Smoking Status: Former smoker Alcohol: None Drugs: None - Family History Paternal Family History: Family History (Last Reviewed 08/16/18 @ 18:39 by Violeta Dowling DO) Mother CAD (coronary artery disease) Father Colon cancer History Items: Cancer - Pancreatic CA, age 3840 years old., Diabetes, Heart Disease, Hypertension Maternal Family History: Family History (Last Reviewed 08/16/18 @ 18:39 by Violeta Dowling DO) Mother CAD (coronary artery disease) Father Colon cancer History Items: Heart Disease, Hypertension - Physical Exam General: Alert, Oriented x3 HEENT: Atraumatic Oral: Moist Mucosa Neck: Supple, No JVD Lungs: - - Bilateral lung base crackles Cardiovascular: Regular rate, Regular Rhythm, Normal S1 Abdomen: Bowel Sounds Present, Soft, Non Tender Extremities: No clubbing, No cyanosis, - - +1 edema of lower extremities Skin: No rashes Musculoskeletal: No Tenderness to Palpation of Joints or Extremities Lymphatic: No Cervical, Supraclavicular, or Inguinal Adenopathy Neurological: Cranial nerves II-XII grossly intact, Neuro grossly intact Psych/Mental Status: Normal Affect Vital Signs Temp Pulse Resp BP Pulse Ox 97.2 F L 84 26 H 136/75 H 94 09/19/18 10:32 09/19/18 15:13 09/19/18 13:05 09/19/18 14:18 09/19/18 10:32 Oxygen Flow Rate (L/min) 3 Oxygen Delivery Method Nasal Cannula Weight: 110.6 kg Body Mass Index (BMI) 38.8 Intake and Output for Last 24 Hours 09/17/18 09/18/18 09/19/18 23:59 23:59 23:59 Intake Total 420 / 420 1160 / 1160 480 / 480 Output Total 400 / 400 500 / 500 400 / 400 Balance 20 / 20 660 / 660 80 / 80 Laboratory Tests Past 24 Hrs 09/19/18 05:10 Sodium 142 Potassium 5.0 Chloride 107 Carbon Dioxide 23.0 Anion Gap 12 BUN 67 H Creatinine 3.08 H Estim Creat Clear Calc 13.64 Est GFR (MDRD) Af Amer 19 L Est GFR (MDRD) Non-Af 15 L BUN/Creatinine Ratio 21.8 H Glucose 121 H Calcium 8.5 Assessment/Plan 1-acute kidney injury on chronic kidney disease. CKD is most probably from nephrectomy. Baseline creatinine seems around 1.4-1.6. Worsening kidney function is most probably from cardiorenal syndrome. Creatinine has been rising steadily from 1.98->2.4->3.8. Patient is breathing is not better, which is not decreasing. I will increase Lasix dose to 60 mg twice a day. I will continue to monitor kidney function and electrolytes closely while on diuretics. Please avoid MOISES inhibitor or ARB for now. Check renal function in a.m.. 2-hypertension: Blood pressure is well controlled. Continue same blood pressure medication. Please avoid MOISES inhibitor or ARB 3-acute on chronic respiratory failure due to most probably CHF. I will increase Lasix dose as above. Nasal cannula support as per the primary service. Low-salt diet. Limit fluid intake to 50 ounces daily. Thank you for the consult. We will continue to follow
[2018-09-19] MEDS: 0.9% NaCl Peripheral Flush Adult/Peds IV (17:58)
[2018-09-19] MEDS: Furosemide 100 MG/10 ML Vial 60 MG IV (17:58)
[2018-09-20] VITALS (20 sets, daily range): BP systolic 135–172; BP diastolic 51–70; PULSE 66–84; RESP 16–24; TEMP 36.5–36.7; O2SAT 94–995
--- NOTE | 2018-09-20 00:57 | NURSING ---
Pt c/o sudden onset SOB after woke up coughing and having difficulty getting up sputum, coughed it up. SPO2- 96% on 4L, hr 75 , bp 172/69, Resps 24, Called RT to janet. Pt due for tx now. Lungs diminished t/o. Did hear some fine crackles in rt post base.
[2018-09-20] MEDS: Ipratropium/Albuterol Sulfate 3 ML AMPUL.NEB INHALATION ×4 (01:00→19:00)
--- NOTE | 2018-09-20 01:05 | NURSING ---
Pt reports feels better now. SOB decreased. Getting breathing tx. VS improved.
[2018-09-20] MEDS: Heparin Injection (Vial) 5,000 UNIT/ML VIAL 5000 UNIT SC ×3 (06:03→21:01)
[2018-09-20] MEDS: dilTIAZem 60 MG Tablet PO ×3 (06:03→21:02)
[2018-09-20] MEDS: hydrALAZINE 25 MG Tablet PO ×3 (06:03→21:01)
[2018-09-20] MEDS: 0.9% NaCl Peripheral Flush Adult/Peds IV ×2 (06:08→07:58)
[2018-09-20 06:28] LABS: Anion Gap 12 (5-15); BUN 83 mg/dL (7-18); BUN/Creat Ratio 25.7 RATIO (10-20); Calcium,Total 8.5 mg/dL (8.5-10.1); Chloride 106 mmol/L (98-107); Creatinine, Serum 3.23 mg/dL (0.55-1.02); EST Glomerular Filtration Rate 15 mL/min (>60); Est Glom Filt Rate - Afr Amer 18 mL/min (>60); Glucose 118 mg/dL (74-106); Potassium 5.4 mmol/L (3.5-5.1); Sodium Level 141 mmol/L (136-145)
[2018-09-20] MEDS: Aspirin 325 MG Tablet PO (07:51)
[2018-09-20] MEDS: predniSONE 20 MG Tablet 40 MG PO (07:51)
[2018-09-20] MEDS: amLODIPine 10 MG Tablet PO (07:52)
[2018-09-20] MEDS: Furosemide 100 MG/10 ML Vial 60 MG IV (07:52)
--- NOTE | 2018-09-20 08:45 | RAD_ITS ---
STUDY: X-RAY CHEST REASON FOR EXAM: Female, 82 years old. SOB. TECHNIQUE: PA and lateral chest. COMPARISON: 09/15/2018. 08/16/2018. CTA chest 04/11/2018. FINDINGS: Interstitial prominence is again noted without significant change compared to recent studies. There is no demonstrated pleural abnormality. Normal size heart. Normal mediastinum and awilda. Normal visualized pulmonary arteries. Normal visualized aortic arch and descending thoracic aorta. Normal visualized thoracic spine. Normal visualized ribs, clavicles, and shoulders. There is no demonstrated abnormality of the visualized soft tissue structures of the upper abdomen. RAD/Chest PA and Lateral IMPRESSION: Question mild pulmonary edema superimposed on mild chronic interstitial fibrosis. Electronically Signed: Bianca Rutherford MD at 23:56 EST Tel , Service support ,
[2018-09-20] MEDS: Sodium Polystyrene Sulfonate 15 GM/60 ML UDC PO (10:15)
--- NOTE | 2018-09-20 11:14 | PCM.PN.REN ---
Subjective: more SOB this am. On NC at 4 l/m no chest pain. No nausea No vomiting - Physical Exam General: Alert, Oriented x3 HEENT: Atraumatic Oral: Moist Mucosa Neck: Supple Lungs: Short of Breath, Tachypneic, - - B/L lungs bases crackles Cardiovascular: Regular rate, Regular Rhythm, Normal S1, Normal S2 Abdomen: Bowel Sounds Present, Soft, Non-Distended Extremities: No clubbing, No cyanosis, Edema - +1 edema Skin: No rashes Musculoskeletal: No Tenderness to Palpation of Joints or Extremities Lymphatic: No Cervical, Supraclavicular, or Inguinal Adenopathy Neurological: Cranial nerves II-XII grossly intact, Neuro grossly intact Psych/Mental Status: Normal Affect Vital Signs Temp Pulse Resp BP Pulse Ox 97.8 F 71 20 H 135/70 H 96 09/20/18 10:14 09/20/18 10:14 09/20/18 10:14 09/20/18 10:14 09/20/18 10:14 Oxygen Flow Rate (L/min) 4 Oxygen Delivery Method Nasal Cannula Weight: 111 kg Body Mass Index (BMI) 38.8 Intake and Output for Last 24 Hours 09/18/18 09/19/18 09/20/18 23:59 23:59 23:59 Intake Total 1160 / 1160 740 / 740 580 / 580 Output Total 500 / 500 650 / 650 775 / 775 Balance 660 / 660 90 / 90 -195 / -195 Laboratory Tests Past 24 Hrs 09/20/18 04:45 Sodium 141 Potassium 5.4 H Chloride 106 Carbon Dioxide 23.0 Anion Gap 12 BUN 83 H Creatinine 3.23 H Estim Creat Clear Calc 13.00 Est GFR (MDRD) Af Amer 18 L Est GFR (MDRD) Non-Af 15 L BUN/Creatinine Ratio 25.7 H Glucose 118 H Calcium 8.5 Medical Necessity - Tobacco Use Smoking Status: Former smoker Assessment/Plan 1-acute kidney injury on chronic kidney disease. CKD is most probably from nephrectomy. Baseline creatinine seems around 1.4-1.6. Worsening kidney function is most probably from cardiorenal syndrome. Cr continues to rise Pt is more SOB and requiring more NC. I will start lasix drip at 10 mg/hour with metolazone 5 mg PO daily I will continue to monitor kidney function and electrolytes closely while on diuretics. Please avoid MOISES inhibitor or ARB for now. Check renal function in a.m.. 2-hypertension: Blood pressure is well controlled. Continue same blood pressure medication. Please avoid MOISES inhibitor or ARB 3-acute on chronic respiratory failure due to most probably CHF. I will increase diuretics as above Nasal cannula support as per the primary service. Low-salt diet. Limit fluid intake to 50 ounces daily. 4- Hyperkalemia: Kayexalate 15 g PO one time Check K in am Thank you for the consult. We will continue to follow
--- NOTE | 2018-09-20 12:22 | PCM.PROGNOTE ---
<Mat Ash - Last Filed: 09/20/18 13:05> Subjective: Pt reports little to no improvement in SOB. She does use home O2 and is stable on her home level. She has some LE edema. She has no CP/pressure/tightness/palp/dizziness/LH. She states she is urinating very little, she does not feel that she is retaining and post void did not show retention. - Physical Exam General: Alert, Oriented x3, Cooperative HEENT: Atraumatic, PERRLA, EOMI, Normocephalic Neck: Supple, No JVD, Negative Carotid Bruits Lungs: Diminished Cardiovascular: Regular rate, No murmurs Abdomen: Bowel Sounds Present, Soft, Non Tender, Obese Extremities: Capillary Refill Less than 3 Seconds, Edema - 1-2+ pitting edema BLE Skin: No rashes, No breakdown Musculoskeletal: No Tenderness to Palpation of Joints or Extremities Neurological: Cranial nerves II-XII grossly intact Psych/Mental Status: Normal Affect, Appropriate, Alert and oriented to time, place, person, mood and affect Vital Signs Temp Pulse Resp BP Pulse Ox 97.8 F 75 20 H 135/70 H 96 09/20/18 10:14 09/20/18 11:00 09/20/18 10:14 09/20/18 10:14 09/20/18 10:14 Oxygen Flow Rate (L/min) 4 Oxygen Delivery Method Nasal Cannula Weight: 244 lb 11.41 oz Body Mass Index (BMI) 38.8 Intake and Output for Last 24 Hours 09/18/18 09/19/18 09/20/18 23:59 23:59 23:59 Intake Total 1160 / 1160 740 / 740 580 / 580 Output Total 500 / 500 650 / 650 775 / 775 Balance 660 / 660 90 / 90 -195 / -195 Laboratory Tests Past 24 Hrs 09/20/18 04:45 Sodium 141 Potassium 5.4 H Chloride 106 Carbon Dioxide 23.0 Anion Gap 12 BUN 83 H Creatinine 3.23 H Estim Creat Clear Calc 13.00 Est GFR (MDRD) Af Amer 18 L Est GFR (MDRD) Non-Af 15 L BUN/Creatinine Ratio 25.7 H Glucose 118 H Calcium 8.5 Medical Necessity - Tobacco Use Smoking Status: Former smoker Assessment/Plan 1. Acute on chronic diastolic CHF exacerbation, complicated by moderate pulmonary htn - little diuresis, and little improvement. Nephro is starting lasix drip and metolazone. 2. PEACE on CKD III - worsening, tho as above she has not diuresed so additional lasix will be given 3. Acute gouty arthritis right foot/right big toe - prednisone. elevate Urate. 4. COPD with chronic hypoxic resp failure - baseline is 4lpm. stable at baseline. 5. HTN - stable 6. Hx renal cell carcinoma with prior right nephrectomy. DVT ppx: heparin DC planning: ptot evals. pt plans to go home. This patient was seen by Mat Ash PA-C under the supervision of Doctor Young. <John Vidal - Last Filed: 09/20/18 16:31> Subjective: Seen and examined. Patient gets easily short of breath even on going to bathroom. She further says he is short of breath because she went for chest x-ray Bilateral lower extremity [place] wrap bandage. On Lasix - Physical Exam General: Alert, Oriented x3, Cooperative HEENT: Atraumatic, PERRLA, EOMI, Normocephalic Neck: Supple, No JVD, Negative Carotid Bruits Lungs: Diminished, Rales, Rhonchi, Short of Breath, Tachypneic Cardiovascular: Regular rate, Regular Rhythm, Normal S1, Normal S2, No murmurs Abdomen: Bowel Sounds Present, Soft, Non Tender Extremities: Capillary Refill Less than 3 Seconds, Edema Skin: No rashes, No breakdown, - - [place] wrap bandage Musculoskeletal: No Tenderness to Palpation of Joints or Extremities, Arthritic Changes Neurological: Cranial nerves II-XII grossly intact Psych/Mental Status: Normal Affect, Appropriate Vital Signs Temp Pulse Resp BP Pulse Ox 98.1 F 75 20 H 150/51 H 99 09/20/18 14:40 09/20/18 15:40 09/20/18 14:40 09/20/18 14:40 09/20/18 14:40 Oxygen Flow Rate (L/min) 3 Oxygen Delivery Method Nasal Cannula Weight: 244 lb 11.41 oz Body Mass Index (BMI) 38.8 Intake and Output for Last 24 Hours 09/18/18 09/19/18 09/20/18 23:59 23:59 23:59 Intake Total 1160 / 1160 740 / 740 580 / 580 Output Total 500 / 500 650 / 650 775 / 775 Balance 660 / 660 90 / 90 -195 / -195 Laboratory Tests Past 24 Hrs 09/20/18 04:45 Sodium 141 Potassium 5.4 H Chloride 106 Carbon Dioxide 23.0 Anion Gap 12 BUN 83 H Creatinine 3.23 H Estim Creat Clear Calc 13.00 Est GFR (MDRD) Af Amer 18 L Est GFR (MDRD) Non-Af 15 L BUN/Creatinine Ratio 25.7 H Glucose 118 H Calcium 8.5 Assessment/Plan This patient was seen in conjunction with Mat COOK. I have independently interviewed and examined the patient and reviewed pertinent history, examination findings, laboratory and plan of management. I have reviewed the note and agree with the documented findings with the few additional points. In brief, patient is admitted for acute on chronic heart failure with preserved EF and moderate pulmonary hypertension. 2D echo in November 2017 shows EF 60% with stage I diastolic dysfunction, mild concentric LVH. Moderate TR, RVSP 59 mmHg consistently moderate pulmonary hypertension. Mild eccentric MR. LA moderately enlarged. Patient seen by order desk caller. Started on Lasix drip and Zaroxolyn. Patient has other comorbidities of gouty arthritis on prednisone. Patient has chronic hypoxic respiratory failure on 4 L baseline oxygen requirement I have discussed my assessment with Mat COOK and orders have been reviewed. Code Visit Inpatient E&M: 68014 Subs Hosp L3
[2018-09-20] MEDS: Furosemide 500 MG in Empty Viaflex 50 mL 1 EACH CONT INF (12:25)
--- NOTE | 2018-09-20 12:25 | PN_ITS ---
<Mat Ash - Last Filed: 09/20/18 13:05> Subjective: Pt reports little to no improvement in SOB. She does use home O2 and is stable on her home level. She has some LE edema. She has no CP/pressure/tightness/palp/dizziness/LH. She states she is urinating very little, she does not feel that she is retaining and post void did not show retention. - Physical Exam General: Alert, Oriented x3, Cooperative HEENT: Atraumatic, PERRLA, EOMI, Normocephalic Neck: Supple, No JVD, Negative Carotid Bruits Lungs: Diminished Cardiovascular: Regular rate, No murmurs Abdomen: Bowel Sounds Present, Soft, Non Tender, Obese Extremities: Capillary Refill Less than 3 Seconds, Edema - 1-2+ pitting edema BLE Skin: No rashes, No breakdown Musculoskeletal: No Tenderness to Palpation of Joints or Extremities Neurological: Cranial nerves II-XII grossly intact Psych/Mental Status: Normal Affect, Appropriate, Alert and oriented to time, place, person, mood and affect Vital Signs Temp Pulse Resp BP Pulse Ox 97.8 F 75 20 H 135/70 H 96 09/20/18 10:14 09/20/18 11:00 09/20/18 10:14 09/20/18 10:14 09/20/18 10:14 Oxygen Flow Rate (L/min) 4 Oxygen Delivery Method Nasal Cannula Weight: 244 lb 11.41 oz Body Mass Index (BMI) 38.8 Intake and Output for Last 24 Hours 09/18/18 09/19/18 09/20/18 23:59 23:59 23:59 Intake Total 1160 / 1160 740 / 740 580 / 580 Output Total 500 / 500 650 / 650 775 / 775 Balance 660 / 660 90 / 90 -195 / -195 Laboratory Tests Past 24 Hrs 09/20/18 04:45 Sodium 141 Potassium 5.4 H Chloride 106 Carbon Dioxide 23.0 Anion Gap 12 BUN 83 H Creatinine 3.23 H Estim Creat Clear Calc 13.00 Est GFR (MDRD) Af Amer 18 L Est GFR (MDRD) Non-Af 15 L BUN/Creatinine Ratio 25.7 H Glucose 118 H Calcium 8.5 Medical Necessity - Tobacco Use Smoking Status: Former smoker Assessment/Plan 1. Acute on chronic diastolic CHF exacerbation, complicated by moderate pulmonary htn - little diuresis, and little improvement. Nephro is starting lasix drip and metolazone. 2. PEACE on CKD III - worsening, tho as above she has not diuresed so additional lasix will be given 3. Acute gouty arthritis right foot/right big toe - prednisone. elevate Urate. 4. COPD with chronic hypoxic resp failure - baseline is 4lpm. stable at b aseline. 5. HTN - stable 6. Hx renal cell carcinoma with prior right nephrectomy. DVT ppx: heparin DC planning: ptot evals. pt plans to go home. This patient was seen by Mat Ash PA-C under the supervision of Doctor Young. <John Vidal - Last Filed: 09/20/18 16:31> Subjective: Seen and examined. Patient gets easily short of breath even on going to bathroom. She further says he is short of breath because she went for chest x- ray Bilateral lower extremity [place] wrap bandage. On Lasix - Physical Exam General: Alert, Oriented x3, Cooperative HEENT: Atraumatic, PERRLA, EOMI, Normocephalic Neck: Supple, No JVD, Negative Carotid Bruits Lungs: Diminished, Rales, Rhonchi, Short of Breath, Tachypneic Cardiovascular: Regular rate, Regular Rhythm, Normal S1, Normal S2, No murmurs Abdomen: Bowel Sounds Present, Soft, Non Tender Extremities: Capillary Refill Less than 3 Seconds, Edema Skin: No rashes, No breakdown, - - [place] wrap bandage Musculoskeletal: No Tenderness to Palpation of Joints or Extremities, Arthritic Changes Neurological: Cranial nerves II-XII grossly intact Psych/Mental Status: Normal Affect, Appropriate Vital Signs Temp Pulse Resp BP Pulse Ox 98.1 F 75 20 H 150/51 H 99 09/20/18 14:40 09/20/18 15:40 09/20/18 14:40 09/20/18 14:40 09/20/18 14:40 Oxygen Flow Rate (L/min) 3 Oxygen Delivery Method Nasal Cannula Weight: 244 lb 11.41 oz Body Mass Index (BMI) 38.8 Intake and Output for Last 24 Hours 09/18/18 09/19/18 09/20/18 23:59 23:59 23:59 Intake Total 1160 / 1160 740 / 740 580 / 580 Output Total 500 / 500 650 / 650 775 / 775 Balance 660 / 660 90 / 90 -195 / -195 Laboratory Tests Past 24 Hrs 09/20/18 04:45 Sodium 141 Potassium 5.4 H Chloride 106 Carbon Dioxide 23.0 Anion Gap 12 BUN 83 H Creatinine 3.23 H Estim Creat Clear Calc 13.00 Est GFR (MDRD) Af Amer 18 L Est GFR (MDRD) Non-Af 15 L BUN/Creatinine Ratio 25.7 H Glucose 118 H Calcium 8.5 Assessment/Plan This patient was seen in conjunction with Mat COOK. I have independently interviewed and examined the patient and reviewed pertinent history, examination findings, laboratory and plan of management. I have reviewed the note and agree with the documented findings with the few additional points. In brief, patient is admitted for acute on chronic heart failure with preserved EF and moderate pulmonary hypertension. 2D echo in November 2017 shows EF 60% with stage I diastolic dysfunction, mild concentric LVH. Moderate TR, RVSP 59 mmHg consistently moderate pulmonary hypertension. Mild eccentric MR. LA moderately enlarged. Patient seen by absorption plant operator. Started on Lasix drip and Zaroxolyn. Patient has other comorbidities of gouty arthritis on prednisone. Patient has chronic hypoxic respiratory failure on 4 L baseline oxygen requirement I have discussed my assessment with Mat COOK and orders have been reviewed. Code Visit Inpatient E&M: 02740 Subs Hosp L3
[2018-09-21] VITALS (20 sets, daily range): BP systolic 130–170; BP diastolic 56–98; PULSE 70–89; RESP 17–20; TEMP 36.4–36.7; O2SAT 93–98
[2018-09-21] MEDS: Ipratropium/Albuterol Sulfate 3 ML AMPUL.NEB INHALATION ×4 (00:20→18:42)
[2018-09-21] MEDS: dilTIAZem 60 MG Tablet PO ×3 (06:29→21:20)
[2018-09-21] MEDS: hydrALAZINE 25 MG Tablet PO ×3 (06:29→21:19)
[2018-09-21] MEDS: Heparin Injection (Vial) 5,000 UNIT/ML VIAL 5000 UNIT SC ×3 (06:29→21:20)
[2018-09-21 07:21] LABS: Anion Gap 9 (5-15); BUN 87 mg/dL (7-18); BUN/Creat Ratio 28.3 RATIO (10-20); Calcium,Total 8.8 mg/dL (8.5-10.1); Chloride 106 mmol/L (98-107); Creatinine, Serum 3.07 mg/dL (0.55-1.02); EST Glomerular Filtration Rate 16 mL/min (>60); Est Glom Filt Rate - Afr Amer 19 mL/min (>60); Estimated Creatinine Clearance 13.68 ml/min; Glucose 91 mg/dL (74-106); Potassium 4.9 mmol/L (3.5-5.1); Sodium Level 141 mmol/L (136-145)
[2018-09-21] MEDS: metOLazone 5 MG Tablet PO (08:27)
[2018-09-21] MEDS: amLODIPine 10 MG Tablet PO (08:27)
[2018-09-21] MEDS: predniSONE 20 MG Tablet 30 MG PO (08:28)
[2018-09-21] MEDS: Aspirin 325 MG Tablet PO (08:28)
--- NOTE | 2018-09-21 11:58 | PCM.PN.REN ---
Subjective: Pt is feeling much better today. less SOB. on NC at 3 l/m - Physical Exam General: Alert, Oriented x3 HEENT: Atraumatic Oral: Moist Mucosa Neck: Supple, No JVD Lungs: - - B/ lungs bases crackles Cardiovascular: Regular rate, Regular Rhythm, Normal S1, Normal S2 Abdomen: Bowel Sounds Present, Soft, Non Tender Extremities: No clubbing, No cyanosis, Edema - +1 edema of LE Skin: No rashes Musculoskeletal: No Tenderness to Palpation of Joints or Extremities Lymphatic: No Cervical, Supraclavicular, or Inguinal Adenopathy Neurological: Cranial nerves II-XII grossly intact, Neuro grossly intact Psych/Mental Status: Normal Affect Vital Signs Temp Pulse Resp BP Pulse Ox 98.0 F 81 20 H 150/73 H 95 09/21/18 08:25 09/21/18 08:25 09/21/18 08:25 09/21/18 08:25 09/21/18 08:25 Oxygen Flow Rate (L/min) 3 Oxygen Delivery Method Nasal Cannula Weight: 111.4 kg Body Mass Index (BMI) 38.8 Intake and Output for Last 24 Hours 09/19/18 09/20/18 09/21/18 23:59 23:59 23:59 Intake Total 740 / 740 584 / 584 728.6 / 728.6 Output Total 650 / 650 1075 / 1075 1999 / 1999 Balance 90 / 90 -491 / -491 -1271.4 / -1271.4 Laboratory Tests Past 24 Hrs 09/21/18 06:50 Sodium 141 Potassium 4.9 Chloride 106 Carbon Dioxide 26.0 Anion Gap 9 BUN 87 H Creatinine 3.07 H Estim Creat Clear Calc 13.68 Est GFR (MDRD) Af Amer 19 L Est GFR (MDRD) Non-Af 16 L BUN/Creatinine Ratio 28.3 H Glucose 91 Calcium 8.8 Medical Necessity - Tobacco Use Smoking Status: Former smoker Assessment/Plan 1-Acute kidney injury on chronic kidney disease. CKD is most probably from nephrectomy. Baseline creatinine seems around 1.4-1.6. Worsening kidney function is most probably from cardiorenal syndrome. Cr started to improve. I will continue the same lasix drip and metolazone I will continue to monitor kidney function and electrolytes closely while on diuretics. Please avoid MOISES inhibitor or ARB for now. Check renal function in a.m.. 2-hypertension: Blood pressure is at acceptable level Continue same blood pressure medications. Please avoid MOISES inhibitor or ARB 3-acute on chronic respiratory failure due to most probably CHF. better. continue diuresis as above Nasal cannula support as per the primary service. Low-salt diet. Limit fluid intake to 50 ounces daily. 4- Hyperkalemia: resolved . Thank you for the consult. We will continue to follow
--- NOTE | 2018-09-21 12:37 | ECHOD_ITS ---
Reason For Study: CHF Procedure This was a 2D Doppler, Color Flow transthoracic echocardiogram. The study was technically difficult. Due to body habitus. Definity deferred due to increased PAP. Exam performed portable in patient room. Left Ventricle Normal LV size. Left ventricular systolic function is normal. The estimated ejection fraction is 65 %. No regional wall motion abnormalities noted. Right Ventricle Mildly dilated right ventricle. Normal systolic function. Atria The left atrium is mildly enlarged. The right atrium is mildly enlarged. No doppler evidence for ASD. Mitral Valve There is moderate mitral annular calcification. Extension of the mitral annular calcification onto the posterior mitral valve leaflet. Trivial mitral valve insufficiency. Tricuspid Valve Normal tricuspid valve. Trivial tricuspid valve insufficiency. Right ventricular systolic pressure estimated to be 72 mmHg. Aortic Valve Trisinus/trileaflet aortic valve. Mild focal aortic valve calcification. Pulmonic Valve The pulmonic valve is not well visualized. Great Vessels Normal sized aortic root. Calcified aortic root. Pericardium/Pleural No pericardial effusion. MMode/2D Measurements & Calculations LVIDd: 4.8 cm IVSd: 1.1 cm LVOT diam: 2.0 cm LVIDs: 2.9 cm LVPWd: 0.98 cm LVOT area: 3.3 cm2 RVDd: 4.5 cm FS: 38.7 % Ao root diam: 3.3 cm LAV(MOD-bp): 88.0 ml LA A4 area: 25.2 cm2 LAV(MOD-bp) Indexed: 40.4 ml/m2 LAV(MOD-sp2): 84.1 ml LAV(MOD-sp4): 80.0 ml LA dimension(2D): 3.8 cm RA A4 area: 20.2 cm2 Doppler Measurements & Calculations MV E max jeronimo: 119.9 cm/sec Lat Peak E' Jeronimo: 11.9 cm/sec Med Peak E' Jeronimo: 9.3 cm/sec MV A max jeronimo: 90.9 cm/sec E/E' lat: 10.1 E/E' med: 12.9 MV E/A: 1.3 Ao V2 max: 224.0 cm/sec LV V1 max: 141.0 cm/sec SV(LVOT): 87.5 ml Ao max P.1 mmHg LV V1 max P.0 mmHg Ao V2 mean: 156.6 cm/sec LV V1 mean P.0 mmHg Ao mean P.0 mmHg LV V1 mean: 94.5 cm/sec Ao V2 VTI: 41.5 cm LV V1 VTI: 26.6 cm LUCILLE(I,D): 2.1 cm2 LUCILLE(V,D): 2.1 cm2 PA V2 max: 131.8 cm/sec TR max jeronimo: 377.9 cm/sec TR max P.1 mmHg Interpretation Summary The study was technically difficult. Left ventricular systolic function is normal. The estimated ejection fraction is 65 %. Mildly dilated right ventricle. The left atrium is mildly enlarged. The right atrium is mildly enlarged. There is moderate mitral annular calcification. Extension of the mitral annular calcification onto the posterior mitral valve leaflet. Trivial mitral valve insufficiency. Trivial tricuspid valve insufficiency. Mild focal aortic valve calcification. Calcified aortic root. Right ventricular systolic pressure estimated to be 72 mmHg with pulmonary hypertension. Transmitral diastolic flow velocities suggest diastolic dysfunction (pseudonormal pattern). Ordering Physician: Mat Ash Referring Physician: Dustin Mendieta Performed By: Caroline Howell, RASHAAD, RVT
--- NOTE | 2018-09-21 12:48 | PCM.PROGNOTE ---
<Mat Ash - Last Filed: 09/21/18 12:48> Subjective: Pt states that she has not felt this good in months, in terms of breathing. Chest heaviness is gone. Some LE edema remains. She occasionally has a productive cough. She is able to produce more urine now. - Physical Exam General: Alert, Oriented x3, Cooperative HEENT: Atraumatic, PERRLA, EOMI, Normocephalic Neck: Supple, No JVD, Negative Carotid Bruits Lungs: Diminished, Rales Cardiovascular: Regular rate, No murmurs Abdomen: Bowel Sounds Present, Soft, Non Tender Extremities: Capillary Refill Less than 3 Seconds, Edema Skin: No rashes, No breakdown Musculoskeletal: No Tenderness to Palpation of Joints or Extremities Neurological: Cranial nerves II-XII grossly intact Psych/Mental Status: Normal Affect, Appropriate, Alert and oriented to time, place, person, mood and affect Vital Signs Temp Pulse Resp BP Pulse Ox 98.0 F 70 20 H 150/73 H 95 09/21/18 08:25 09/21/18 11:29 09/21/18 08:25 09/21/18 08:25 09/21/18 08:25 Oxygen Flow Rate (L/min) 3 Oxygen Delivery Method Nasal Cannula Weight: 245 lb 9.519 oz Body Mass Index (BMI) 38.8 Intake and Output for Last 24 Hours 09/19/18 09/20/18 09/21/18 23:59 23:59 23:59 Intake Total 740 / 740 584 / 584 1019.4 / 1019.4 Output Total 650 / 650 1075 / 1075 3200 / 3200 Balance 90 / 90 -491 / -491 -2180.6 / -2180.6 Laboratory Tests Past 24 Hrs 09/21/18 06:50 Sodium 141 Potassium 4.9 Chloride 106 Carbon Dioxide 26.0 Anion Gap 9 BUN 87 H Creatinine 3.07 H Estim Creat Clear Calc 13.68 Est GFR (MDRD) Af Amer 19 L Est GFR (MDRD) Non-Af 16 L BUN/Creatinine Ratio 28.3 H Glucose 91 Calcium 8.8 Medical Necessity - Tobacco Use Smoking Status: Former smoker Assessment/Plan 1. Acute on chronic diastolic CHF exacerbation, complicated by moderate pulmonary htn - now improving significantly with better output on lasix drip and metolazone. Continue overnight. Repeat echo. Last stress 04/24 - negative. Follows [facility]. 2. PEACE on CKD III - starting to improve. 3. Acute gouty arthritis right foot/right big toe - significantly improved. Will taper prednisone. 4. COPD with chronic hypoxic resp failure - baseline is 4lpm. stable at baseline. 5. HTN - stable 6. Hx renal cell carcinoma with prior right nephrectomy. DVT ppx: heparin DC planning: ptot evals. pt plans to go home. This patient was seen by Mat Ash PA-C under the supervision of Doctor Young. <John Vidal - Last Filed: 09/21/18 13:53> Subjective: Seen and examined. Patient had significant improvement in shortness of breath, lower extremity edema on Lasix drip. She feels very happy. Negative fluid balance of 2180 mL - Physical Exam General: Alert, Oriented x3, Cooperative HEENT: Atraumatic, PERRLA, EOMI, Normocephalic Neck: Supple, No JVD, Negative Carotid Bruits Lungs: Diminished, Rales, Short of Breath Cardiovascular: Regular rate, Regular Rhythm, Normal S1, Normal S2, No murmurs Abdomen: Bowel Sounds Present, Soft, Non Tender, Non-Distended Extremities: Capillary Refill Less than 3 Seconds, Edema Skin: No rashes, No breakdown, - - [place] wrap bandage on lower extremities Musculoskeletal: No Tenderness to Palpation of Joints or Extremities, Arthritic Changes, Muscle Wasting Neurological: Cranial nerves II-XII grossly intact Psych/Mental Status: Normal Affect, Appropriate Vital Signs Temp Pulse Resp BP Pulse Ox 98.0 F 70 20 H 150/73 H 95 09/21/18 08:25 09/21/18 11:29 09/21/18 08:25 09/21/18 08:25 09/21/18 08:25 Oxygen Flow Rate (L/min) 3 Oxygen Delivery Method Nasal Cannula Weight: 245 lb 9.519 oz Body Mass Index (BMI) 38.8 Intake and Output for Last 24 Hours 09/19/18 09/20/18 09/21/18 23:59 23:59 23:59 Intake Total 740 / 740 584 / 584 1019.4 / 1019.4 Output Total 650 / 650 1075 / 1075 3200 / 3200 Balance 90 / 90 -491 / -491 -2180.6 / -2180.6 Laboratory Tests Past 24 Hrs 09/21/18 06:50 Sodium 141 Potassium 4.9 Chloride 106 Carbon Dioxide 26.0 Anion Gap 9 BUN 87 H Creatinine 3.07 H Estim Creat Clear Calc 13.68 Est GFR (MDRD) Af Amer 19 L Est GFR (MDRD) Non-Af 16 L BUN/Creatinine Ratio 28.3 H Glucose 91 Calcium 8.8 Assessment/Plan This patient was seen in conjunction with Mat COOK. I have independently interviewed and examined the patient and reviewed pertinent history, examination findings, laboratory and plan of management. I have reviewed the note and agree with the documented findings with the few additional points. In brief, patient is admitted for acute on chronic heart failure with preserved EF and moderate pulmonary hypertension. 2D echo in November 2017 shows EF 60% with stage I diastolic dysfunction, mild concentric LVH. Moderate TR, RVSP 59 mmHg consistently moderate pulmonary hypertension. Mild eccentric MR. LA moderately enlarged. Patient seen by system support analyst. Started on Lasix drip and Zaroxolyn. Dr. Holland suggested ischemic workup patient already had negative stress test in April 2018 and 2D echo in November 2017 as mentioned above. Serial troponins were borderline mainly because of kidney failure. patient denies chest pain. Feels improvement on chest congestion. Repeat 2D echo ordered Patient has other comorbidities of gouty arthritis on prednisone. Patient has chronic hypoxic respiratory failure on 4 L baseline oxygen requirement I have discussed my assessment with Mat COOK and orders have been reviewed. Code Visit Inpatient E&M: 90466 Subs Hosp L3
[2018-09-21] MEDS: hydrALAZINE 20 MG/ML Vial 10 MG IV (16:59)
[2018-09-22] VITALS (20 sets, daily range): BP systolic 136–148; BP diastolic 57–76; PULSE 71–101; RESP 18–22; TEMP 36.4–36.8; O2SAT 94–96
[2018-09-22] MEDS: Ipratropium/Albuterol Sulfate 3 ML AMPUL.NEB INHALATION ×4 (00:42→19:39)
[2018-09-22] MEDS: hydrALAZINE 25 MG Tablet PO ×3 (06:05→22:10)
[2018-09-22] MEDS: dilTIAZem 60 MG Tablet PO ×3 (06:05→22:10)
[2018-09-22] MEDS: Heparin Injection (Vial) 5,000 UNIT/ML VIAL 5000 UNIT SC ×3 (06:05→22:11)
[2018-09-22 06:08] LABS: Anion Gap 11 (5-15); BUN 93 mg/dL (7-18); BUN/Creat Ratio 32.3 RATIO (10-20); Calcium,Total 8.9 mg/dL (8.5-10.1); Chloride 102 mmol/L (98-107); Creatinine, Serum 2.88 mg/dL (0.55-1.02); EST Glomerular Filtration Rate 17 mL/min (>60); Est Glom Filt Rate - Afr Amer 20 mL/min (>60); Estimated Creatinine Clearance 14.58 ml/min; Glucose 97 mg/dL (74-106); Potassium 4.1 mmol/L (3.5-5.1); Sodium Level 142 mmol/L (136-145)
[2018-09-22] MEDS: Furosemide 500 MG in Empty Viaflex 50 mL 1 EACH CONT INF (06:39)
[2018-09-22 07:29] LABS: Magnesium 2.5 mg/dL (1.6-2.6)
--- NOTE | 2018-09-22 09:46 | PCM.PN.REN ---
Objective: Patient said her breathing continues to improve. She made almost 5 L of urine output in the last 24-hour. Patient on Lasix drip at 10 mg/h with metolazone 5 mg p.o. daily. Edema is improving On nasal cannula 3 L/min - Physical Exam General: Alert, Oriented x3 HEENT: Atraumatic Oral: Moist Mucosa Neck: Supple, No JVD Lungs: - - Bilateral lung bases crackle Cardiovascular: Regular rate, Regular Rhythm, Normal S1, Normal S2 Abdomen: Bowel Sounds Present, Soft, Non Tender Extremities: Edema - +1 edema of lower extremities Skin: No rashes Musculoskeletal: No Tenderness to Palpation of Joints or Extremities Lymphatic: No Cervical, Supraclavicular, or Inguinal Adenopathy Neurological: Cranial nerves II-XII grossly intact, Neuro grossly intact Psych/Mental Status: Normal Affect Vital Signs Temp Pulse Resp BP Pulse Ox 97.5 F L 91 22 H 140/75 H 96 09/22/18 06:05 09/22/18 07:21 09/22/18 07:07 09/22/18 06:05 09/22/18 07:07 Oxygen Flow Rate (L/min) 3 Oxygen Delivery Method Nasal Cannula Weight: 109.4 kg Body Mass Index (BMI) 38.8 Intake and Output for Last 24 Hours 09/20/18 09/21/18 09/22/18 23:59 23:59 23:59 Intake Total 584 / 584 1398.6 / 1398.6 148.7 / 148.7 Output Total 1075 / 1075 4900 / 4900 1250 / 1250 Balance -491 / -491 -3501.4 / -3501.4 -1101.3 / -1101.3 Laboratory Tests Past 24 Hrs 09/22/18 09/22/18 05:10 05:10 Sodium 142 Potassium 4.1 Chloride 102 Carbon Dioxide 29.0 Anion Gap 11 BUN 93 H Creatinine 2.88 H Estim Creat Clear Calc 14.58 Est GFR (MDRD) Af Amer 20 L Est GFR (MDRD) Non-Af 17 L BUN/Creatinine Ratio 32.3 H Glucose 97 Calcium 8.9 Magnesium 2.5 Medical Necessity - Tobacco Use Smoking Status: Former smoker Assessment/Plan 1-Acute kidney injury on chronic kidney disease. CKD is most probably from nephrectomy. Baseline creatinine seems around 1.4-1.6. Acute kidney injury is most probably from cardiorenal syndrome. Creatinine continued to improve slowly with diuresis. Patient responding well to the current diuretics. I will stop metolazone and Lasix drip. I will start the patient on Bumex 2 mg twice a day I will continue to monitor kidney function and electrolytes closely while on diuretics. Please avoid MOISES inhibitor or ARB for now. Check renal function in a.m.. 2-hypertension: Blood pressure is at acceptable level Continue same blood pressure medications. Please avoid MOISES inhibitor or ARB 3-acute on chronic respiratory failure due to most probably CHF. better. Diuretics as above Nasal cannula support as per the primary service. Low-salt diet. Limit fluid intake to 50 ounces daily. 4- Hyperkalemia: resolved . Thank you for the consult. We will continue to follow
[2018-09-22] MEDS: predniSONE 20 MG Tablet 30 MG PO (10:08)
[2018-09-22] MEDS: amLODIPine 10 MG Tablet PO (10:09)
[2018-09-22] MEDS: 0.9% NaCl Peripheral Flush Adult/Peds IV ×2 (10:09→22:12)
[2018-09-22] MEDS: Aspirin 325 MG Tablet PO (10:09)
--- NOTE | 2018-09-22 10:30 | CASEMGMT ---
Pt has not seen therapy since 09/16/18 and per nurse has been up ad reema in room without difficulty. SStgricel RN CM
[2018-09-22] MEDS: Bumetanide 2 MG Tablet PO ×2 (10:55→17:45)
--- NOTE | 2018-09-22 12:58 | PCM.PROGNOTE ---
<Mat Ash - Last Filed: 09/22/18 12:58> Subjective: Pt did notice some palpitations this morning, and had episodes of Vtach on the monitor. She has no CP. Her SOB continues to improve, as well as her LE edema. No dizziness/LH. - Physical Exam General: Alert, Oriented x3, Cooperative HEENT: Atraumatic, PERRLA, EOMI, Normocephalic Neck: Supple, No JVD, Negative Carotid Bruits Lungs: Rales - R>L base, improved Cardiovascular: Regular rate, No murmurs Abdomen: Bowel Sounds Present, Soft, Non Tender Extremities: No edema, Capillary Refill Less than 3 Seconds Skin: No rashes, No breakdown Musculoskeletal: No Tenderness to Palpation of Joints or Extremities Neurological: Cranial nerves II-XII grossly intact Psych/Mental Status: Normal Affect, Appropriate, Alert and oriented to time, place, person, mood and affect Vital Signs Temp Pulse Resp BP Pulse Ox 97.7 F L 80 18 140/68 H 94 09/22/18 10:06 09/22/18 11:22 09/22/18 10:06 09/22/18 11:15 09/22/18 10:06 Oxygen Flow Rate (L/min) 3 Oxygen Delivery Method Nasal Cannula Weight: 241 lb 2.971 oz Body Mass Index (BMI) 38.8 Intake and Output for Last 24 Hours 09/20/18 09/21/18 09/22/18 23:59 23:59 23:59 Intake Total 584 / 584 1398.6 / 1398.6 1002.7 / 1002.7 Output Total 1075 / 1075 4900 / 4900 2250 / 2250 Balance -491 / -491 -3501.4 / -3501.4 -1247.3 / -1247.3 Laboratory Tests Past 24 Hrs 09/22/18 09/22/18 05:10 05:10 Sodium 142 Potassium 4.1 Chloride 102 Carbon Dioxide 29.0 Anion Gap 11 BUN 93 H Creatinine 2.88 H Estim Creat Clear Calc 14.58 Est GFR (MDRD) Af Amer 20 L Est GFR (MDRD) Non-Af 17 L BUN/Creatinine Ratio 32.3 H Glucose 97 Calcium 8.9 Magnesium 2.5 Medical Necessity - Tobacco Use Smoking Status: Former smoker Assessment/Plan 1. Acute on chronic diastolic CHF exacerbation, complicated by moderate pulmonary htn - improved. Neprho has changed her to bumex po. Repeat echo with increased pulmonary pressures. Last stress 04/24 - negative. Follows [facility]. 2. Intermittent Vtach episodes - she was started on cardizem on the , however she continues to have episodes of vtach, and noticed palpitations this AM. I discussed her case with Dr. Vidal who advised 150 amio bolus then 200 mg BID amio and outpatient follow up. She is allergic to beta blockers. 3. PEACE on CKD III - improved. Nephro following. 4. Acute gouty arthritis right foot/right big toe - significantly improved. Will taper prednisone. 5. COPD with chronic hypoxic resp failure - baseline is 4lpm. stable at baseline. 6. HTN - stable 7. Hx renal cell carcinoma with prior right nephrectomy. DVT ppx: heparin DC planning: Monitor heart rate overnight. Likely home tomorrow. This patient was seen by Mat Ash PA-C under the supervision of Doctor Young. <John Vidal - Last Filed: 09/22/18 16:49> Subjective: Seen and examined. Patient shortness of breath better. Patient had NSVT episode of about 12 beats in the morning. Discussed with the camera prototyping engineer. Started on amiodarone. Lasix drip switched to oral Bumex. Objective: General: Alert, Oriented x3, Cooperative HEENT: Atraumatic, PERRLA, EOMI, Normocephalic Neck: Supple, No JVD, Negative Carotid Bruits Lungs: Diminished, Rales, Short of Breath Cardiovascular: Regular rate, Regular Rhythm, Normal S1, Normal S2, no murmur/rub/gallop. Short run of NSVT in the morning. Abdomen: Bowel Sounds Present, Soft, Non Tender, Non-Distended Extremities: Capillary Refill Less than 3 Seconds, Edema Skin: No rashes, No breakdown, - - [place] wrap bandage on lower extremities Musculoskeletal: No Tenderness to Palpation of Joints or Extremities, Arthritic Changes, Muscle Wasting Neurological: Cranial nerves II-XII grossly intact Psych/Mental Status: Normal Affect, Appropriate - Physical Exam Vital Signs Temp Pulse Resp BP Pulse Ox 98.2 F 82 18 136/61 H 94 09/22/18 16:05 09/22/18 16:05 09/22/18 16:05 09/22/18 16:05 09/22/18 16:05 Oxygen Flow Rate (L/min) 3 Oxygen Delivery Method Nasal Cannula Weight: 241 lb 2.971 oz Body Mass Index (BMI) 38.8 Intake and Output for Last 24 Hours 09/20/18 09/21/18 09/22/18 23:59 23:59 23:59 Intake Total 584 / 584 1398.6 / 1398.6 1002.7 / 1002.7 Output Total 1075 / 1075 4900 / 4900 2250 / 2250 Balance -491 / -491 -3501.4 / -3501.4 -1247.3 / -1247.3 Laboratory Tests Past 24 Hrs 09/22/18 09/22/18 05:10 05:10 Sodium 142 Potassium 4.1 Chloride 102 Carbon Dioxide 29.0 Anion Gap 11 BUN 93 H Creatinine 2.88 H Estim Creat Clear Calc 14.58 Est GFR (MDRD) Af Amer 20 L Est GFR (MDRD) Non-Af 17 L BUN/Creatinine Ratio 32.3 H Glucose 97 Calcium 8.9 Magnesium 2.5 Assessment/Plan This patient was seen in conjunction with Mat COOK. I have independently interviewed and examined the patient and reviewed pertinent history, examination findings, laboratory and plan of management. I have reviewed the note and agree with the documented findings with the few additional points. In brief, patient is admitted for acute on chronic heart failure with preserved EF and moderate pulmonary hypertension. 2D echo in November 2017 shows EF 60% with stage I diastolic dysfunction, mild concentric LVH. Moderate TR, RVSP 59 mmHg consistently moderate pulmonary hypertension. Mild eccentric MR. LA moderately enlarged. Patient seen by wheelchair van driver. Started on Lasix drip and Zaroxolyn. Dr. Holland suggested ischemic workup patient already had negative stress test in April 2018 and 2D echo in November 2017 as mentioned above. Serial troponins were borderline mainly because of kidney failure. patient denies chest pain. Feels improvement on chest congestion. Repeat 2D echo shows EF 65% with no regional wall motion abnormalities. Mildly dilated RV with normal systolic function. LA mildly enlarged. RA mildly enlarged. Trivial MR with moderate mitral annular calcification with extension into posterior mitral valve leaflet. Trivial TR with RVSP 72 mmHg. Patient has other comorbidities of gouty arthritis on prednisone. Patient has chronic hypoxic respiratory failure on 4 L baseline oxygen requirement. NSVT: Patient is started on amiodarone 150 mg IV and then 200 mg twice daily after discussion with camera prototyping engineer. Patient follows Dr. vidal. Plan of care and management discussed with the patient and her son present in the room. I have discussed my assessment with Mat COOK and orders have been reviewed. Active Medications Acetaminophen (Tylenol) 650 mg PO Q6H PRN PRN PRN Reason: Mild Pain (scale 0-3)/T>100.7 Last Admin: 09/16/18 14:53 Dose: 650 mg Hydrocodone Bitart/Acetaminophen ([place] 5mg-325mg) 1 tablet PO TID PRN PRN PRN Reason: PAIN Albuterol Sulfate (Ventolin Aerosols) 2.5 mg INHALATION Q4H PRN PRN PRN Reason: Shortness of breath, wheezing Albuterol/Ipratropium (Duoneb) 3 ml INHALATION Q6H.RT [facility] Last Admin: 09/22/18 12:59 Dose: 3 ml Amiodarone HCl (Cordarone) 200 mg PO BID [facility] Last Admin: 09/22/18 14:03 Dose: 200 mg Amlodipine Besylate (Norvasc) 10 mg PO DAILY [facility] Last Admin: 09/22/18 10:09 Dose: 10 mg Aspirin (Aspirin) 325 mg PO DAILY@0800 [facility] Last Admin: 09/22/18 10:09 Dose: 325 mg Bumetanide (Bumex) 2 mg PO BIDLX [facility] Last Admin: 09/22/18 10:55 Dose: 2 mg Diltiazem HCl (Cardizem) 60 mg PO Q8 [facility] Last Admin: 09/22/18 14:03 Dose: 60 mg Estrogens Conjugated (Premarin) 0.3 mg PO QHS [facility] Last Admin: 09/21/18 21:20 Dose: 0.3 mg Heparin Sodium (Porcine) (Heparin Na) 5,000 unit SC Q8 [facility] Last Admin: 09/22/18 14:03 Dose: 5,000 unit Hydralazine HCl (Apresoline) 25 mg PO TID [facility] Last Admin: 09/22/18 14:03 Dose: 25 mg Hydralazine HCl (Apresoline Iv) 10 mg IV Q8H PRN PRN PRN Reason: SBP>160 Last Admin: 09/21/18 16:59 Dose: 10 mg Magnesium Hydroxide (Milk Of Magnesia) 30 ml PO DAILY PRN PRN Reason: Constipation Last Admin: 09/19/18 10:38 Dose: 30 ml Medroxyprogesterone Acetate (Cycrin,Provera) 5 mg PO QHS [facility] Last Admin: 09/21/18 21:20 Dose: 5 mg Ondansetron HCl (Zofran) 4 mg IV Q8H PRN PRN PRN Reason: Nausea Prednisone () 30 mg PO DAILY@0800 [facility] Last Admin: 09/22/18 10:08 Dose: 30 mg Sodium Chloride () 5 - 15 ml IV UD PRN PRN Reason: SALINE FLUSH Last Admin: 09/22/18 10:09 Dose: 10 ml Zolpidem Tartrate (Ambien (Generic)) 5 mg PO QHS PRN PRN PRN Reason: INSOMNIA Code Visit Inpatient E&M: 36966 Subs Hosp L3
--- NOTE | 2018-09-22 13:02 | PN_ITS ---
<Mat Ash - Last Filed: 09/22/18 12:58> Subjective: Pt did notice some palpitations this morning, and had episodes of Vtach on the monitor. She has no CP. Her SOB continues to improve, as well as her LE edema. No dizziness/LH. - Physical Exam General: Alert, Oriented x3, Cooperative HEENT: Atraumatic, PERRLA, EOMI, Normocephalic Neck: Supple, No JVD, Negative Carotid Bruits Lungs: Rales - R>L base, improved Cardiovascular: Regular rate, No murmurs Abdomen: Bowel Sounds Present, Soft, Non Tender Extremities: No edema, Capillary Refill Less than 3 Seconds Skin: No rashes, No breakdown Musculoskeletal: No Tenderness to Palpation of Joints or Extremities Neurological: Cranial nerves II-XII grossly intact Psych/Mental Status: Normal Affect, Appropriate, Alert and oriented to time, place, person, mood and affect Vital Signs Temp Pulse Resp BP Pulse Ox 97.7 F L 80 18 140/68 H 94 09/22/18 10:06 09/22/18 11:22 09/22/18 10:06 09/22/18 11:15 09/22/18 10:06 Oxygen Flow Rate (L/min) 3 Oxygen Delivery Method Nasal Cannula Weight: 241 lb 2.971 oz Body Mass Index (BMI) 38.8 Intake and Output for Last 24 Hours 09/20/18 09/21/18 09/22/18 23:59 23:59 23:59 Intake Total 584 / 584 1398.6 / 1398.6 1002.7 / 1002.7 Output Total 1075 / 1075 4900 / 4900 2250 / 2250 Balance -491 / -491 -3501.4 / -3501.4 -1247.3 / -1247.3 Laboratory Tests Past 24 Hrs 09/22/18 09/22/18 05:10 05:10 Sodium 142 Potassium 4.1 Chloride 102 Carbon Dioxide 29.0 Anion Gap 11 BUN 93 H Creatinine 2.88 H Estim Creat Clear Calc 14.58 Est GFR (MDRD) Af Amer 20 L Est GFR (MDRD) Non-Af 17 L BUN/Creatinine Ratio 32.3 H Glucose 97 Calcium 8.9 Magnesium 2.5 Medical Necessity - Tobacco Use Smoking Status: Former smoker Assessment/Plan 1. Acute on chronic diastolic CHF exacerbation, complicated by moderate pulmonary htn - improved. Neprho has changed her to bumex po. Repeat echo with increased pulmonary pressures. Last stress 04/24 - negative. Follows [facility]. 2. Intermittent Vtach episodes - she was started on cardizem on the , however she continues to have episodes of vtach, and noticed palpitations this AM. I discussed her case with Dr. Vidal who advised 150 amio bolus then 200 mg BID amio and outpatient follow up. She is allergic to beta blockers. 3. PEACE on CKD III - improved. Nephro following. 4. Acute gouty arthritis right foot/right big toe - significantly improved. Will taper prednisone. 5. COPD with chronic hypoxic resp failure - baseline is 4lpm. stable at baseline. 6. HTN - stable 7. Hx renal cell carcinoma with prior right nephrectomy. DVT ppx: heparin DC planning: Monitor heart rate overnight. Likely home tomorrow. This patient was seen by Mat Ash PA-C under the supervision of Doctor Young. <John Vidal - Last Filed: 09/22/18 16:49> Subjective: Seen and examined. Patient shortness of breath better. Patient had NSVT episode of about 12 beats in the morning. Discussed with the electrical troubleshooter. Started on amiodarone. Lasix drip switched to oral Bumex. Objective: General: Alert, Oriented x3, Cooperative HEENT: Atraumatic, PERRLA, EOMI, Normocephalic Neck: Supple, No JVD, Negative Carotid Bruits Lungs: Diminished, Rales, Short of Breath Cardiovascular: Regular rate, Regular Rhythm, Normal S1, Normal S2, no murmur/rub/gallop. Short run of NSVT in the morning. Abdomen: Bowel Sounds Present, Soft, Non Tender, Non-Distended Extremities: Capillary Refill Less than 3 Seconds, Edema Skin: No rashes, No breakdown, - - [place] wrap bandage on lower extremities Musculoskeletal: No Tenderness to Palpation of Joints or Extremities, Arthritic Changes, Muscle Wasting Neurological: Cranial nerves II-XII grossly intact Psych/Mental Status: Normal Affect, Appropriate - Physical Exam Vital Signs Temp Pulse Resp BP Pulse Ox 98.2 F 82 18 136/61 H 94 09/22/18 16:05 09/22/18 16:05 09/22/18 16:05 09/22/18 16:05 09/22/18 16:05 Oxygen Flow Rate (L/min) 3 Oxygen Delivery Method Nasal Cannula Weight: 241 lb 2.971 oz Body Mass Index (BMI) 38.8 Intake and Output for Last 24 Hours 09/20/18 09/21/18 09/22/18 23:59 23:59 23:59 Intake Total 584 / 584 1398.6 / 1398.6 1002.7 / 1002.7 Output Total 1075 / 1075 4900 / 4900 2250 / 2250 Balance -491 / -491 -3501.4 / -3501.4 -1247.3 / -1247.3 Laboratory Tests Past 24 Hrs 09/22/18 09/22/18 05:10 05:10 Sodium 142 Potassium 4.1 Chloride 102 Carbon Dioxide 29.0 Anion Gap 11 BUN 93 H Creatinine 2.88 H Estim Creat Clear Calc 14.58 Est GFR (MDRD) Af Amer 20 L Est GFR (MDRD) Non-Af 17 L BUN/Creatinine Ratio 32.3 H Glucose 97 Calcium 8.9 Magnesium 2.5 Assessment/Plan This patient was seen in conjunction with aMt COOK. I have independently interviewed and examined the patient and reviewed pertinent history, examination findings, laboratory and plan of management. I have reviewed the note and agree with the documented findings with the few additional points. In brief, patient is admitted for acute on chronic heart failure with preserved EF and moderate pulmonary hypertension. 2D echo in November 2017 shows EF 60% with stage I diastolic dysfunction, mild concentric LVH. Moderate TR, RVSP 59 mmHg consistently moderate pulmonary hypertension. Mild eccentric MR. LA moderately enlarged. Patient seen by taper and floater. Started on Lasix drip and Zaroxolyn. Dr. Holland suggested ischemic workup patient already had negative stress test in April 2018 and 2D echo in November 2017 as mentioned above. Serial troponins were borderline mainly because of kidney failure. patient denies chest pain. Feels improvement on chest congestion. Repeat 2D echo shows EF 65% with no regional wall motion abnormalities. Mildly dilated RV with normal systolic function. LA mildly enlarged. RA mildly enlarged. Trivial MR with moderate mitral annular calcification with extension into posterior mitral valve leaflet. Trivial TR with RVSP 72 mmHg. Patient has other comorbidities of gouty arthritis on prednisone. Patient has chronic hypoxic respiratory failure on 4 L baseline oxygen requirement. NSVT: Patient is started on amiodarone 150 mg IV and then 200 mg twice daily after discussion with electrical troubleshooter. Patient follows Dr. vidal. Plan of care and management discussed with the patient and her son present in the room. I have discussed my assessment with Mat COOK and orders have been reviewed. Active Medications Acetaminophen (Tylenol) 650 mg PO Q6H PRN PRN PRN Reason: Mild Pain (scale 0-3)/T>100.7 Last Admin: 09/16/18 14:53 Dose: 650 mg Hydrocodone Bitart/Acetaminophen (Hobart 5mg-325mg) 1 tablet PO TID PRN PRN PRN Reason: PAIN Albuterol Sulfate (Ventolin Aerosols) 2.5 mg INHALATION Q4H PRN PRN PRN Reason: Shortness of breath, wheezing Albuterol/Ipratropium (Duoneb) [address] [facility] Last Admin: 09/22/18 12:59 Dose: 3 ml Amiodarone HCl (Cordarone) [address] [facility] Last Admin: 09/22/18 14:03 Dose: 200 mg Amlodipine Besylate (Norvasc) [address] [facility] Last Admin: 09/22/18 10:09 Dose: 10 mg Aspirin (Aspirin) 325 mg PO DAILY@0800 [facility] Last Admin: 09/22/18 10:09 Dose: 325 mg Bumetanide (Bumex) [address] [facility] Last Admin: 09/22/18 10:55 Dose: 2 mg Diltiazem HCl (Cardizem) [address] [facility] Last Admin: 09/22/18 14:03 Dose: 60 mg Estrogens Conjugated (Premarin) 0.[address] [facility] Last Admin: 09/21/18 21:20 Dose: 0.3 mg Heparin Sodium (Porcine) (Heparin Na) 5,[address] [facility] Last Admin: 09/22/18 14:03 Dose: 5,000 unit Hydralazine HCl (Apresoline) [address] [facility] Last Admin: 09/22/18 14:03 Dose: 25 mg Hydralazine HCl (Apresoline Iv) 10 mg IV Q8H PRN PRN PRN Reason: SBP>160 Last Admin: 09/21/18 16:59 Dose: 10 mg Magnesium Hydroxide (Milk Of Magnesia) 30 ml PO DAILY PRN PRN Reason: Constipation Last Admin: 09/19/18 10:38 Dose: 30 ml Medroxyprogesterone Acetate (Cycrin,Provera) [address] [facility] Last Admin: 09/21/18 21:20 Dose: 5 mg Ondansetron HCl (Zofran) 4 mg IV Q8H PRN PRN PRN Reason: Nausea Prednisone () 30 mg PO DAILY@0800 [facility] Last Admin: 09/22/18 10:08 Dose: 30 mg Sodium Chloride () 5 - 15 ml IV UD PRN PRN Reason: SALINE FLUSH Last Admin: 09/22/18 10:09 Dose: 10 ml Zolpidem Tartrate (Ambien (Generic)) 5 mg PO QHS PRN PRN PRN Reason: INSOMNIA Code Visit Inpatient E&M: 63922 Subs Hosp L3
[2018-09-22] MEDS: Amiodarone 200 MG Tablet PO ×2 (14:03→22:10)
[2018-09-23] VITALS (12 sets, daily range): BP systolic 134–146; BP diastolic 63–80; PULSE 75–89; RESP 18–24; TEMP 36.4–36.7; O2SAT 91–97
[2018-09-23] MEDS: Ipratropium/Albuterol Sulfate 3 ML AMPUL.NEB INHALATION ×3 (00:28→12:52)
[2018-09-23] MEDS: hydrALAZINE 25 MG Tablet PO ×2 (05:49→13:06)
[2018-09-23] MEDS: Heparin Injection (Vial) 5,000 UNIT/ML VIAL 5000 UNIT SC (05:50)
[2018-09-23] MEDS: dilTIAZem 60 MG Tablet PO ×2 (05:50→13:06)
[2018-09-23 06:27] LABS: Anion Gap 11 (5-15); BUN 96 mg/dL (7-18); Chloride 101 mmol/L (98-107); Creatinine, Serum 2.67 mg/dL (0.55-1.02); EST Glomerular Filtration Rate 18 mL/min (>60); Est Glom Filt Rate - Afr Amer 22 mL/min (>60); Estimated Creatinine Clearance 15.47 ml/min; Glucose 102 mg/dL (74-106); Potassium 4.2 mmol/L (3.5-5.1); Sodium Level 141 mmol/L (136-145)
[2018-09-23] MEDS: Bumetanide 2 MG Tablet PO (09:22)
[2018-09-23] MEDS: predniSONE 20 MG Tablet 30 MG PO (09:22)
[2018-09-23] MEDS: Aspirin 325 MG Tablet PO (09:22)
[2018-09-23] MEDS: amLODIPine 10 MG Tablet PO (09:22)
[2018-09-23] MEDS: Amiodarone 200 MG Tablet PO (09:22)
--- NOTE | 2018-09-23 10:22 | PCM.DC ---
- Discharge Diagnoses Current Active Problems: Current Active and Chronic Problems (Last Updated 08/17/18 @ 13:56 by Antonette Brown MD) Acute kidney injury superimposed on chronic kidney disease (Chronic) COPD (chronic obstructive pulmonary disease) (Chronic) You will use the following diet at home:: Renal (restricted protein/sodium) Discharge Activity: Return to Normal Activity Call your doctor if you observe: Inability to urinate, Shortness of breath, Dizziness, Fainting spells, Chest pain Allergies/Adverse Reactions: Allergies clindamycin [From Cleocin] Allergy (Verified 09/15/18 10:54) Unknown oxycodone HCl [From OxyContin] Allergy (Verified 09/15/18 10:54) Anaphylaxis Sulfa (Sulfonamide Antibiotics) Allergy (Verified 09/15/18 10:54) Anaphylaxis vancomycin Allergy (Verified 09/15/18 10:54) Hives guaifenesin [From Entex LA] Adverse Reaction (Verified 09/15/18 10:54) Unknown phenylephrine [From Entex LA] Adverse Reaction (Verified 09/15/18 10:54) Unknown phenylpropanolamine [From Entex LA] Adverse Reaction (Verified 09/15/18 10:54) Unknown BETA BLOCKERS Adverse Reaction (Uncoded 09/15/18 10:54) Unknown Medications to take at Discharge Estrogens, Conjugated [Premarin] 0.3 mg PO QHS 04/04/15 MedroxyPROGESTERone [Provera] 5 mg PO QHS 05/18/15 Aspirin 325 mg PO DAILY@0800 04/12/18 Felodipine [Plendil] 10 mg PO DAILY 08/16/18 Umeclidinium Brm/Vilanterol Tr [Anoro Ellipta 62.5-25 Mcg INH] 1 puff INHALATION DAILY 08/16/18 Cholecalciferol (Vitamin D3) [Vitamin D3] 2,000 unit PO DAILY 09/15/18 Hydrocodone/Acetaminophen [[place] 5-325 Tablet] 1 tab PO TID PRN PRN 09/15/18 hydrALAZINE [Apresoline] 25 mg PO TID 09/15/18 Amiodarone HCl [Cordarone] 200 mg PO BID #60 tablet 09/23/18 Bumetanide [Bumex] 2 mg PO BIDLX #60 tablet 09/23/18 Diltiazem [Cardizem] 60 mg PO Q8 #90 tablet 09/23/18 Prednisone See Taper PO DAILY #9 tablet 09/23/18 The following prescriptions were given: Bumetanide [Bumex] 2 mg PO BIDLX #60 tablet Diltiazem [Cardizem] 60 mg PO Q8 #90 tablet Prednisone See Taper PO DAILY #9 tablet Amiodarone HCl [Cordarone] 200 mg PO BID #60 tablet Primary Care Physician: Dustin Mendieta MD [Primary Care Provider] - Please follow up with your Primary Care Physician in: 1 Week Test Results: Test results from this visit will be discussed in further detail at your follow-up appointment, if applicable. Please Follow Up With: Ferdinand Aleman MD When: 1 Week Please Follow Up With: Alistair Duffy MD When: 1-2 Weeks Please Follow Up With: Abdiel Mosley DO When: As scheduled, 10/12/18 Proposed Discharge Date: 09/23/18
--- NOTE | 2018-09-23 10:25 | DCINST_ITS ---
- Discharge Diagnoses Current Active Problems: Current Active and Chronic Problems (Last Updated 08/17/18 @ 13:56 by Antonette Brown MD) Acute kidney injury superimposed on chronic kidney disease (Chronic) COPD (chronic obstructive pulmonary disease) (Chronic) You will use the following diet at home:: Renal (restricted protein/sodium) Discharge Activity: Return to Normal Activity Call your doctor if you observe: Inability to urinate, Shortness of breath, Dizziness, Fainting spells, Chest pain Allergies/Adverse Reactions: Allergies clindamycin [From Cleocin] Allergy (Verified 09/15/18 10:54) Unknown oxycodone HCl [From OxyContin] Allergy (Verified 09/15/18 10:54) Anaphylaxis Sulfa (Sulfonamide Antibiotics) Allergy (Verified 09/15/18 10:54) Anaphylaxis vancomycin Allergy (Verified 09/15/18 10:54) Hives guaifenesin [From Entex LA] Adverse Reaction (Verified 09/15/18 10:54) Unknown phenylephrine [From Entex LA] Adverse Reaction (Verified 09/15/18 10:54) Unknown phenylpropanolamine [From Entex LA] Adverse Reaction (Verified 09/15/18 10:54) Unknown BETA BLOCKERS Adverse Reaction (Uncoded 09/15/18 10:54) Unknown Medications to take at Discharge Estrogens, Conjugated [Premarin] 0.3 mg PO QHS 04/04/15 MedroxyPROGESTERone [Provera] 5 mg PO QHS 05/18/15 Aspirin 325 mg PO DAILY@0800 04/12/18 Felodipine [Plendil] 10 mg PO DAILY 08/16/18 Umeclidinium Brm/Vilanterol Tr [Anoro Ellipta 62.5-25 Mcg INH] 1 puff INHALATION DAILY 08/16/18 Cholecalciferol (Vitamin D3) [Vitamin D3] 2,000 unit PO DAILY 09/15/18 Hydrocodone/Acetaminophen [[place] 5-325 Tablet] 1 tab PO TID PRN PRN 09/15/18 hydrALAZINE [Apresoline] 25 mg PO TID 09/15/18 Amiodarone HCl [Cordarone] 200 mg PO BID #60 tablet 09/23/18 Bumetanide [Bumex] 2 mg PO BIDLX #60 tablet 09/23/18 Diltiazem [Cardizem] 60 mg PO Q8 #90 tablet 09/23/18 Prednisone See Taper PO DAILY #9 tablet 09/23/18 The following prescriptions were given: Bumetanide [Bumex] 2 mg PO BIDLX #60 tablet Diltiazem [Cardizem] 60 mg PO Q8 #90 tablet Prednisone See Taper PO DAILY #9 tablet Amiodarone HCl [Cordarone] 200 mg PO BID #60 tablet Primary Care Physician: Dustin Mendieta MD [Primary Care Provider] - Please follow up with your Primary Care Physician in: 1 Week Test Results: Test results from this visit will be discussed in further detail at your follow- up appointment, if applicable. Please Follow Up With: Ferdinand Aleman MD When: 1 Week Please Follow Up With: Alistair Duffy MD When: 1-2 Weeks Please Follow Up With: Abdiel Mosley DO When: As scheduled, 10/12/18 Proposed Discharge Date: 09/23/18
--- NOTE | 2018-09-23 10:27 | PCM.DC.SUM ---
<Wendy Cummings - Last Filed: 09/23/18 10:50> Discharge Date and Diagnosis Date of Admission: 09/15/18 Date of Discharge: 09/23/18 - Primary Discharge Diagnosis 1. Acute on chronic diastolic CHF 2. Intermittent V. tach 3. Pulmonary hypertension 4. Acute kidney injury on chronic kidney disease stage III 5. Acute gouty arthritis right foot/right great toe 6. Chronic COPD with chronic hypoxic respiratory failure 7. Hypertension 8. History of renal cell carcinoma status post right nephrectomy 9. Obesity - Secondary Discharge Diagnosis Chronic Problems (Last Updated 08/17/18 @ 13:56 by Antonette Brown MD) Acute kidney injury superimposed on chronic kidney disease (Chronic) COPD (chronic obstructive pulmonary disease) (Chronic) Chronic respiratory failure with hypoxia (Chronic) Chronic renal failure, stage 3 (moderate) (Chronic) 3-4 Hormone replacement therapy (Chronic) Pulmonary hypertension (Chronic) PA pressure 57 in November 2017 Stasis dermatitis (Chronic) Obesity, morbid, BMI 40.0-49.9 (Chronic) Gout (Chronic) Hypertension (Chronic) History of TIA (transient ischemic attack) (Chronic) 1998 History of kidney cancer (Chronic) S/P nephrectomy Hospital Course and Treatment Imaging Results: Diagnostic Data Chest X-Ray 09/20/18 08:45 IMPRESSION: Question mild pulmonary edema superimposed on mild chronic interstitial fibrosis. Electronically Signed: Bianca Rutherford MD at 23:56 EST Tel , Service support , Dr. Aleman- Nephrology Operations: None Procedures: 2-D Echocardiogram Summary of Care Provided: The patient is a 83 year old F admitted 09/15/2017 due to shortness of breath. 1. Acute on chronic diastolic CHF-BNP 618 on admission. Chest x-ray on admission consistent with CHF. Echocardiogram showed an EF of 65%, RVSP estimated to be 72 mmHg. Patient had a negative stress test April 2018. Her home Lasix regimen was discontinued. She will be discharged on Bumex 2 mg twice daily. Follow-up with Dr. Mirza in 1-2 weeks. Pulmonary pressures increased from prior echo in November 2017 which showed RVSP 59 mmHg at that time. 2. Intermittent V. tach-patient was started on Cardizem 60 mg p.o. every 8 hours as well as amiodarone 200 mg twice daily. Patient has an allergy to beta-blockers. No further V. tach overnight. Follow-up with cardiology as noted above. 3. Acute kidney injury on chronic kidney disease stage III -Improved. History of nephrectomy due to renal cell carcinoma. Baseline creatinine 1.3-1.4. Patient follows with Dr. Aleman. Follow-up with nephrology in 1 week. 4. Acute gouty arthritis right foot/right big toe-complete prednisone taper at discharge. Encourage patient to discuss preventative regimen with primary care physician given recurrence of acute gout. 5. Chronic hypoxic respiratory failure due to chronic COPD-patient chronically wears 4 L nasal cannula. Patient follows with pulmonary medicine as outpatient. Follow-up with Dr. Mosley as scheduled 10/12/18. 6. Hypertension-continue hydralazine, felodipine regimen. 7. History of TIA-continue aspirin. 8. Obesity-encouraged diet/lifestyle modifications. General: Alert, Oriented x3, Cooperative HEENT: Atraumatic, PERRLA, EOMI, Normocephalic Oral: Moist mucosa Neck: Supple, No JVD, Negative Carotid Bruits Lungs: Diminished, faint rales Cardiovascular: Regular rate, Regular Rhythm, Normal S1, Normal S2, No murmurs Abdomen: Bowel Sounds Present, Soft, Non Tender, Non-Distended, Obese Extremities: No clubbing, No cyanosis, No edema, Capillary Refill Less than 3 Seconds Skin: No rashes, No breakdown Musculoskeletal: No Tenderness to Palpation of Joints or Extremities Neurological: Cranial nerves II-XII grossly intact, Neuro grossly intact Psych/Mental Status: Normal Affect, Appropriate Patient seen and examined prior to discharge. Physical assessment as noted above. Patient is stable for discharge with follow up recommendations as noted above. This patient was seen by ZAK Donaldson under the supervision of Dr. Vidal. - Physical Exam Vital Signs Temp Pulse Resp BP Pulse Ox 97.6 F L 75 18 134/63 H 95 09/23/18 09:21 09/23/18 09:21 09/23/18 09:21 09/23/18 09:21 09/23/18 09:21 Oxygen Flow Rate (L/min) 3 Oxygen Delivery Method Nasal Cannula Weight: 238 lb 12.17 oz Body Mass Index (BMI) 38.8 Intake and Output for Last 24 Hours 09/21/18 09/22/18 09/23/18 23:59 23:59 23:59 Intake Total 1398.6 / 1398.6 1336.7 / 1336.7 280 / 280 Output Total 4900 / 4900 3150 / 3150 1400 / 1400 Balance -3501.4 / -3501.4 -1813.3 / -1813.3 -1120 / -1120 Laboratory Tests Past 24 Hrs 09/23/18 05:40 Sodium 141 Potassium 4.2 Chloride 101 Carbon Dioxide 29.0 Anion Gap 11 BUN 96 H Creatinine 2.67 H Estim Creat Clear Calc 15.47 Est GFR (MDRD) Af Amer 22 L Est GFR (MDRD) Non-Af 18 L BUN/Creatinine Ratio 36.0 H Glucose 102 Calcium 9.0 Discharge Diet: Renal Diet Discharge Activity: Return to Normal Activity Call your doctor if you observe: Inability to urinate, Shortness of breath, Dizziness, Fainting spells, Chest pain Home Medications: Medications to take at Discharge Estrogens, Conjugated [Premarin] 0.3 mg PO QHS 04/04/15 MedroxyPROGESTERone [Provera] 5 mg PO QHS 05/18/15 Aspirin 325 mg PO DAILY@0800 04/12/18 Felodipine [Plendil] 10 mg PO DAILY 08/16/18 Umeclidinium Brm/Vilanterol Tr [Anoro Ellipta 62.5-25 Mcg INH] 1 puff INHALATION DAILY 08/16/18 Cholecalciferol (Vitamin D3) [Vitamin D3] 2,000 unit PO DAILY 09/15/18 Hydrocodone/Acetaminophen [[place] 5-325 Tablet] 1 tab PO TID PRN PRN 09/15/18 hydrALAZINE [Apresoline] 25 mg PO TID 09/15/18 Amiodarone HCl [Cordarone] 200 mg PO BID #60 tablet 09/23/18 Bumetanide [Bumex] 2 mg PO BIDLX #60 tablet 09/23/18 Diltiazem [Cardizem] 60 mg PO Q8 #90 tablet 09/23/18 Prednisone See Taper PO DAILY #9 tablet 09/23/18 Following Prescrptions Were Given to Patient: Bumetanide [Bumex] 2 mg PO BIDLX #60 tablet Diltiazem [Cardizem] 60 mg PO Q8 #90 tablet Prednisone See Taper PO DAILY #9 tablet Amiodarone HCl [Cordarone] 200 mg PO BID #60 tablet Primary Care Physician: Dustin Mendieta MD [Primary Care Provider] - Please follow up with your Primary Care Physician in: 1 Week Please Follow Up With: Ferdinand Aleman MD When: 1 Week Please Follow Up With: Alistair Vidal MD When: 1-2 Weeks Please Follow Up With: Abdiel Mosley DO When: As scheduled, 10/12/18 Disposition: Home Minutes spent on discharge:: 35 Patient Condition:: Stable Medical Necessity - Tobacco Use Smoking Status: Former smoker Meaningful Use Info Meaningful Use Diagnoses (Choose all that apply): CHF - CHF [place]/ARB ordered at discharge?: No Reason [place]O/ARB not ordered?: Worsening renal function Documented LVEF (%): 65 <John Vidal - Last Filed: 09/23/18 18:14> Discharge Date and Diagnosis - Secondary Discharge Diagnosis Chronic Problems (Last Updated 08/17/18 @ 13:56 by Antonette Brown MD) Acute kidney injury superimposed on chronic kidney disease (Chronic) COPD (chronic obstructive pulmonary disease) (Chronic) Chronic respiratory failure with hypoxia (Chronic) Chronic renal failure, stage 3 (moderate) (Chronic) 3-4 Hormone replacement therapy (Chronic) Pulmonary hypertension (Chronic) PA pressure 57 in November 2017 Stasis dermatitis (Chronic) Obesity, morbid, BMI 40.0-49.9 (Chronic) Gout (Chronic) Hypertension (Chronic) History of TIA (transient ischemic attack) (Chronic) 1998 History of kidney cancer (Chronic) S/P nephrectomy Hospital Course and Treatment Summary of Care Provided: This patient was seen in conjunction with APPAREL RENTAL CLERK, Wendy. I have independently interviewed and examined the patient and reviewed pertinent history, examination findings, laboratory and plan of management. I have reviewed the note and agree with the documented findings with the few additional points. In brief, patient is admitted for acute on chronic heart failure with preserved EF and moderate pulmonary hypertension. 2D echo in November 2017 shows EF 60% with stage I diastolic dysfunction, mild concentric LVH. Moderate TR, RVSP 59 mmHg consistently moderate pulmonary hypertension. Mild eccentric MR. LA moderately enlarged. Patient seen by irrigator valve pipe. Started on Lasix drip and Zaroxolyn. Dr. Holland suggested ischemic workup patient already had negative stress test in April 2018 and 2D echo in November 2017 as mentioned above. Serial troponins were borderline mainly because of kidney failure. patient denies chest pain. Feels improvement on chest congestion. Repeat 2D echo shows EF 65% with no regional wall motion abnormalities. Mildly dilated RV with normal systolic function. LA mildly enlarged. RA mildly enlarged. Trivial MR with moderate mitral annular calcification with extension into posterior mitral valve leaflet. Trivial TR with RVSP 72 mmHg. Patient has other comorbidities of gouty arthritis on prednisone. Patient has chronic hypoxic respiratory failure on 4 L baseline oxygen requirement. NSVT: Patient is started on amiodarone 150 mg IV and then 200 mg twice daily after discussion with headlight assembler. Patient follows Dr. vidal. Plan of care and management discussed with the patient and her son present in the room. Discharge medication reconciliation done. Patient is discharged on amiodarone and Cardizem. Blood pressure is controlled. Discharge on Bumex 2 mg twice daily. Discharge medication reconciliation done. Discharge follow-up instructions completed. Discharge process discussed with the patient. Total time spent, exact 35 minutes on discharge meds reconciliation, examination, review of imaging and blood test and discussion with the patient on follow-up instructions. I have discussed my assessment with APPAREL RENTAL CLERKWendy and orders have been reviewed. [] Subjective: Seen and examined. Patient is happy to feel the progress of getting better. She further said she has not felt like this in last 2 months. Shortness of breath much better. - Physical Exam General: Alert, Oriented x3, Cooperative HEENT: Atraumatic, PERRLA, EOMI, Normocephalic Neck: Supple, No JVD, Negative Carotid Bruits Lungs: Diminished, Rales - Mild coarse rales present, Rhonchi Cardiovascular: Regular rate, Regular Rhythm, Normal S1, Normal S2, No murmurs Abdomen: Bowel Sounds Present, Soft, Non Tender Extremities: Capillary Refill Less than 3 Seconds, Edema Skin: No rashes, No breakdown Musculoskeletal: Arthritic Changes, Muscle Wasting, - - [place] wrap bandage around lower extremities Neurological: Cranial nerves II-XII grossly intact Psych/Mental Status: Normal Affect, Appropriate Vital Signs Temp Pulse Resp BP Pulse Ox 98.0 F 82 18 139/80 H 95 09/23/18 13:05 09/23/18 13:06 09/23/18 13:05 09/23/18 13:05 09/23/18 13:05 Oxygen Flow Rate (L/min) 3 Oxygen Delivery Method Nasal Cannula Weight: 238 lb 12.17 oz Body Mass Index (BMI) 38.8 Intake and Output for Last 24 Hours 09/21/18 09/22/18 09/23/18 23:59 23:59 23:59 Intake Total 1398.6 / 1398.6 1336.7 / 1336.7 910 / 910 Output Total 4900 / 4900 3150 / 3150 2099 / 2099 Balance -3501.4 / -3501.4 -1813.3 / -1813.3 -1190 / -1190 Laboratory Tests Past 24 Hrs 09/23/18 05:40 Sodium 141 Potassium 4.2 Chloride 101 Carbon Dioxide 29.0 Anion Gap 11 BUN 96 H Creatinine 2.67 H Estim Creat Clear Calc 15.47 Est GFR (MDRD) Af Amer 22 L Est GFR (MDRD) Non-Af 18 L BUN/Creatinine Ratio 36.0 H Glucose 102 Calcium 9.0 Code Visit Inpatient E&M: 23112 Disch Hosp
--- NOTE | 2018-09-23 10:42 | CASEMGMT ---
This RN CM to room to speak with pt regarding discharge plan and pt states no concerns with going home at time of discharge. Pt states no needs at this time. Pt states that Dr. Aleman states she will be starting dialysis in the near future. Pt states no further questions/concerns/needs at this time. SStaten BRUNO JEFFERY
--- NOTE | 2018-09-23 10:46 | DS.PCM_ITS ---
<Wendy Cummings - Last Filed: 09/23/18 10:50> Discharge Date and Diagnosis Date of Admission: 09/15/18 Date of Discharge: 09/23/18 - Primary Discharge Diagnosis 1. Acute on chronic diastolic CHF 2. Intermittent V. tach 3. Pulmonary hypertension 4. Acute kidney injury on chronic kidney disease stage III 5. Acute gouty arthritis right foot/right great toe 6. Chronic COPD with chronic hypoxic respiratory failure 7. Hypertension 8. History of renal cell carcinoma status post right nephrectomy 9. Obesity - Secondary Discharge Diagnosis Chronic Problems (Last Updated 08/17/18 @ 13:56 by Antonette Brown MD) Acute kidney injury superimposed on chronic kidney disease (Chronic) COPD (chronic obstructive pulmonary disease) (Chronic) Chronic respiratory failure with hypoxia (Chronic) Chronic renal failure, stage 3 (moderate) (Chronic) 3-4 Hormone replacement therapy (Chronic) Pulmonary hypertension (Chronic) PA pressure 57 in November 2017 Stasis dermatitis (Chronic) Obesity, morbid, BMI 40.0-49.9 (Chronic) Gout (Chronic) Hypertension (Chronic) History of TIA (transient ischemic attack) (Chronic) 1998 History of kidney cancer (Chronic) S/P nephrectomy Hospital Course and Treatment Imaging Results: Diagnostic Data Chest X-Ray 09/20/18 08:45 IMPRESSION: Question mild pulmonary edema superimposed on mild chronic interstitial fibrosis. Electronically Signed: Bianca Rutherford MD at 23:56 EST Tel , Service support , Dr. Aleman- Nephrology Operations: None Procedures: 2-D Echocardiogram Summary of Care Provided: The patient is a 83 year old F admitted 09/15/2017 due to shortness of breath. 1. Acute on chronic diastolic CHF-BNP 618 on admission. Chest x-ray on admission consistent with CHF. Echocardiogram showed an EF of 65%, RVSP estimated to be 72 mmHg. Patient had a negative stress test April 2018. Her home Lasix regimen was discontinued. She will be discharged on Bumex 2 mg twice daily. Follow-up with Dr. Mirza in 1-2 weeks. Pulmonary pressures increased from prior echo in November 2017 which showed RVSP 59 mmHg at that time. 2. Intermittent V. tach-patient was started on Cardizem 60 mg p.o. every 8 hours as well as amiodarone 200 mg twice daily. Patient has an allergy to beta- blockers. No further V. tach overnight. Follow-up with cardiology as noted above. 3. Acute kidney injury on chronic kidney disease stage III -Improved. History of nephrectomy due to renal cell carcinoma. Baseline creatinine 1.3-1.4. Patient follows with Dr. Aleman. Follow-up with nephrology in 1 week. 4. Acute gouty arthritis right foot/right big toe-complete prednisone taper at discharge. Encourage patient to discuss preventative regimen with primary care physician given recurrence of acute gout. 5. Chronic hypoxic respiratory failure due to chronic COPD-patient chronically wears 4 L nasal cannula. Patient follows with pulmonary medicine as outpatient. Follow-up with Dr. Mosley as scheduled 10/12/18. 6. Hypertension-continue hydralazine, felodipine regimen. 7. History of TIA-continue aspirin. 8. Obesity-encouraged diet/lifestyle modifications. General: Alert, Oriented x3, Cooperative HEENT: Atraumatic, PERRLA, EOMI, Normocephalic Oral: Moist mucosa Neck: Supple, No JVD, Negative Carotid Bruits Lungs: Diminished, faint rales Cardiovascular: Regular rate, Regular Rhythm, Normal S1, Normal S2, No murmurs Abdomen: Bowel Sounds Present, Soft, Non Tender, Non-Distended, Obese Extremities: No clubbing, No cyanosis, No edema, Capillary Refill Less than 3 Seconds Skin: No rashes, No breakdown Musculoskeletal: No Tenderness to Palpation of Joints or Extremities Neurological: Cranial nerves II-XII grossly intact, Neuro grossly intact Psych/Mental Status: Normal Affect, Appropriate Patient seen and examined prior to discharge. Physical assessment as noted above. Patient is stable for discharge with follow up recommendations as noted above. This patient was seen by ZAK Donaldson under the supervision of Dr. Vidal. - Physical Exam Vital Signs Temp Pulse Resp BP Pulse Ox 97.6 F L 75 18 134/63 H 95 09/23/18 09:21 09/23/18 09:21 09/23/18 09:21 09/23/18 09:21 09/23/18 09:21 Oxygen Flow Rate (L/min) 3 Oxygen Delivery Method Nasal Cannula Weight: 238 lb 12.17 oz Body Mass Index (BMI) 38.8 Intake and Output for Last 24 Hours 09/21/18 09/22/18 09/23/18 23:59 23:59 23:59 Intake Total 1398.6 / 1398.6 1336.7 / 1336.7 280 / 280 Output Total 4900 / 4900 3150 / 3150 1400 / 1400 Balance -3501.4 / -3501.4 -1813.3 / -1813.3 -1120 / -1120 Laboratory Tests Past 24 Hrs 09/23/18 05:40 Sodium 141 Potassium 4.2 Chloride 101 Carbon Dioxide 29.0 Anion Gap 11 BUN 96 H Creatinine 2.67 H Estim Creat Clear Calc 15.47 Est GFR (MDRD) Af Amer 22 L Est GFR (MDRD) Non-Af 18 L BUN/Creatinine Ratio 36.0 H Glucose 102 Calcium 9.0 Discharge Diet: Renal Diet Discharge Activity: Return to Normal Activity Call your doctor if you observe: Inability to urinate, Shortness of breath, Dizziness, Fainting spells, Chest pain Home Medications: Medications to take at Discharge Estrogens, Conjugated [Premarin] 0.3 mg PO QHS 04/04/15 MedroxyPROGESTERone [Provera] 5 mg PO QHS 05/18/15 Aspirin 325 mg PO DAILY@0800 04/12/18 Felodipine [Plendil] 10 mg PO DAILY 08/16/18 Umeclidinium Brm/Vilanterol Tr [Anoro Ellipta 62.5-25 Mcg INH] 1 puff INHALATION DAILY 08/16/18 Cholecalciferol (Vitamin D3) [Vitamin D3] 2,000 unit PO DAILY 09/15/18 Hydrocodone/Acetaminophen [[place] 5-325 Tablet] 1 tab PO TID PRN PRN 09/15/18 hydrALAZINE [Apresoline] 25 mg PO TID 09/15/18 Amiodarone HCl [Cordarone] 200 mg PO BID #60 tablet 09/23/18 Bumetanide [Bumex] 2 mg PO BIDLX #60 tablet 09/23/18 Diltiazem [Cardizem] 60 mg PO Q8 #90 tablet 09/23/18 Prednisone See Taper PO DAILY #9 tablet 09/23/18 Following Prescrptions Were Given to Patient: Bumetanide [Bumex] 2 mg PO BIDLX #60 tablet Diltiazem [Cardizem] 60 mg PO Q8 #90 tablet Prednisone See Taper PO DAILY #9 tablet Amiodarone HCl [Cordarone] 200 mg PO BID #60 tablet Primary Care Physician: Dustin Mendieta MD [Primary Care Provider] - Please follow up with your Primary Care Physician in: 1 Week Please Follow Up With: Ferdinand Aleman MD When: 1 Week Please Follow Up With: Alistair Vidal MD When: 1-2 Weeks Please Follow Up With: Abdiel Mosley DO When: As scheduled, 10/12/18 Disposition: Home Minutes spent on discharge:: 35 Patient Condition:: Stable Medical Necessity - Tobacco Use Smoking Status: Former smoker Meaningful Use Info Meaningful Use Diagnoses (Choose all that apply): CHF - CHF [place]/ARB ordered at discharge?: No Reason [place]/ARB not ordered?: Worsening renal function Documented LVEF (%): 65 <John Vidal - Last Filed: 09/23/18 18:14> Discharge Date and Diagnosis - Secondary Discharge Diagnosis Chronic Problems (Last Updated 08/17/18 @ 13:56 by Antonette Brown MD) Acute kidney injury superimposed on chronic kidney disease (Chronic) COPD (chronic obstructive pulmonary disease) (Chronic) Chronic respiratory failure with hypoxia (Chronic) Chronic renal failure, stage 3 (moderate) (Chronic) 3-4 Hormone replacement therapy (Chronic) Pulmonary hypertension (Chronic) PA pressure 57 in November 2017 Stasis dermatitis (Chronic) Obesity, morbid, BMI 40.0-49.9 (Chronic) Gout (Chronic) Hypertension (Chronic) History of TIA (transient ischemic attack) (Chronic) 1998 History of kidney cancer (Chronic) S/P nephrectomy Hospital Course and Treatment Summary of Care Provided: This patient was seen in conjunction with SOLDERING INSPECTOR, Wendy. I have independently interviewed and examined the patient and reviewed pertinent history, examination findings, laboratory and plan of management. I have reviewed the note and agree with the documented findings with the few additional points. In brief, patient is admitted for acute on chronic heart failure with preserved EF and moderate pulmonary hypertension. 2D echo in November 2017 shows EF 60% with stage I diastolic dysfunction, mild concentric LVH. Moderate TR, RVSP 59 mmHg consistently moderate pulmonary hypertension. Mild eccentric MR. LA moderately enlarged. Patient seen by medical and scientific illustrator. Started on Lasix drip and Zaroxolyn. Dr. Holland suggested ischemic workup patient already had negative stress test in April 2018 and 2D echo in November 2017 as mentioned above. Serial troponins were borderline mainly because of kidney failure. patient denies chest pain. Feels improvement on chest congestion. Repeat 2D echo shows EF 65% with no regional wall motion abnormalities. Mildly dilated RV with normal systolic function. LA mildly enlarged. RA mildly enlarged. Trivial MR with moderate mitral annular calcification with extension into posterior mitral valve leaflet. Trivial TR with RVSP 72 mmHg. Patient has other comorbidities of gouty arthritis on prednisone. Patient has chronic hypoxic respiratory failure on 4 L baseline oxygen requirement. NSVT: Patient is started on amiodarone 150 mg IV and then 200 mg twice daily after discussion with equine science instructor. Patient follows Dr. vidal. Plan of care and management discussed with the patient and her son present in the room. Discharge medication reconciliation done. Patient is discharged on amiodarone and Cardizem. Blood pressure is controlled. Discharge on Bumex 2 mg twice daily. Discharge medication reconciliation done. Discharge follow-up instructions completed. Discharge process discussed with the patient. Total time spent, exact 35 minutes on discharge meds reconciliation, examination, review of imaging and blood test and discussion with the patient on follow-up instructions. I have discussed my assessment with SOLDERING INSPECTORWendy and orders have been reviewed. [] Subjective: Seen and examined. Patient is happy to feel the progress of getting better. She further said she has not felt like this in last 2 months. Shortness of breath much better. - Physical Exam General: Alert, Oriented x3, Cooperative HEENT: Atraumatic, PERRLA, EOMI, Normocephalic Neck: Supple, No JVD, Negative Carotid Bruits Lungs: Diminished, Rales - Mild coarse rales present, Rhonchi Cardiovascular: Regular rate, Regular Rhythm, Normal S1, Normal S2, No murmurs Abdomen: Bowel Sounds Present, Soft, Non Tender Extremities: Capillary Refill Less than 3 Seconds, Edema Skin: No rashes, No breakdown Musculoskeletal: Arthritic Changes, Muscle Wasting, - - [place] wrap bandage around lower extremities Neurological: Cranial nerves II-XII grossly intact Psych/Mental Status: Normal Affect, Appropriate Vital Signs Temp Pulse Resp BP Pulse Ox 98.0 F 82 18 139/80 H 95 09/23/18 13:05 09/23/18 13:06 09/23/18 13:05 09/23/18 13:05 09/23/18 13:05 Oxygen Flow Rate (L/min) 3 Oxygen Delivery Method Nasal Cannula Weight: 238 lb 12.17 oz Body Mass Index (BMI) 38.8 Intake and Output for Last 24 Hours 09/21/18 09/22/18 09/23/18 23:59 23:59 23:59 Intake Total 1398.6 / 1398.6 1336.7 / 1336.7 910 / 910 Output Total 4900 / 4900 3150 / 3150 2099 / 2099 Balance -3501.4 / -3501.4 -1813.3 / -1813.3 -1190 / -1190 Laboratory Tests Past 24 Hrs 09/23/18 05:40 Sodium 141 Potassium 4.2 Chloride 101 Carbon Dioxide 29.0 Anion Gap 11 BUN 96 H Creatinine 2.67 H Estim Creat Clear Calc 15.47 Est GFR (MDRD) Af Amer 22 L Est GFR (MDRD) Non-Af 18 L BUN/Creatinine Ratio 36.0 H Glucose 102 Calcium 9.0 Code Visit Inpatient E&M: 42302 Disch Hosp
== END 2018-09-23 15:10 | disposition home or self-care (01) | DRG 291 ==
LOC: ED 11:47 → PCU 13:31
PROVIDERS: Family Medicine; Physician Assistant; Admitting Provider Hospitalist; Emergency Provider Emergency Medicine; Family Provider Family Medicine; PCP Family Medicine; Visit Provider Internal Medicine
DX: I13.0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 heart and chronic kidney disease with heart failure and stage 1 through stage 4 chronic kidney disease, or unspecified chronic kidney disease (principal); I50.33 Acute on chronic diastolic (congestive) heart failure; J96.11 Chronic respiratory failure with hypoxia; N17.9 Acute kidney failure, unspecified; I47.2 Ventricular tachycardia; N18.3 Chronic kidney disease, stage 3 (moderate); Z99.81 Dependence on supplemental oxygen; M10.9 Gout, unspecified; I27.20 Pulmonary hypertension, unspecified; J44.9 Chronic obstructive pulmonary disease, unspecified; E66.01 Morbid (severe) obesity due to excess calories; I87.2 Venous insufficiency (chronic) (peripheral); Z68.38 Body mass index [BMI] 38.0-38.9, adult; Z90.5 Acquired absence of kidney; Z85.528 Personal history of other malignant neoplasm of kidney; Z87.891 Personal history of nicotine dependence; Z79.899 Other long term (current) drug therapy; Z79.82 Long term (current) use of aspirin; Z86.73 Personal history of transient ischemic attack (TIA), and cerebral infarction without residual deficits
CPT/HCPCS: 36415; 71046; 80048; 83735; 83880; 84484; 84550; 85025; 85610; 93005; 93306; 94640; 94667; 94668; 97802; 99283; A4216; J1940

== ENCOUNTER 2018-09-28 19:08 | Inpatient (IN) | payer MEDICARE, OTHER, SELFPAY ==
[2018-09-15 13:54] VITALS: BMI 38.8
[2018-09-28 20:06] VITALS: BMI 37.2
[2018-09-28 20:15] VITALS: BP 130/53; PULSE 52; RESP 20; TEMP 36.5; O2SAT 97
--- NOTE | 2018-09-28 20:28 | PCM.HP.STD ---
Problem List (1) Near syncope Status: Acute (2) Acute kidney injury superimposed on chronic kidney disease Status: Chronic (3) COPD (chronic obstructive pulmonary disease) Status: Chronic (4) Chronic respiratory failure with hypoxia Status: Chronic (5) Chronic renal failure, stage 3 (moderate) Status: Chronic Comment: 3-4 (6) Hormone replacement therapy Status: Chronic (7) Pulmonary hypertension Status: Chronic Comment: PA pressure 57 in November 2017 (8) Stasis dermatitis Status: Chronic (9) Obesity, morbid, BMI 40.0-49.9 Status: Chronic (10) Gout Status: Chronic Qualifiers: (11) Hypertension Status: Chronic Qualifiers: (12) History of TIA (transient ischemic attack) Status: Chronic Comment: 1998 (13) History of kidney cancer Status: Chronic Comment: S/P nephrectomy (14) UTI (urinary tract infection) Status: Acute History of Present Illness Date of Admission: 09/28/18 Chief Complaint: Dizzy feeling, nonspecific symptoms today morning The patient is a 83 year old F with multiple comorbidities including chronic heart failure with preserved EF and moderate pulmonary hypertension who was discharged on 09/23/2018 after 8 days of hospital stay for management of acute on chronic diastolic heart failure, intermittent V. tach, AK I on CKD stage III gouty arthritis. She is a direct transfer from [facility] ER for management of nonspecific symptoms including UTI as detailed below Today in the morning, she has not felt right although not able to describe exactly but felt foggy after she took morning medications around 10 AM. She felt a little bit dizzy but denies vertigo, change in visual field, chest pressure, shortness of breath, palpitation or nausea or vomiting. She did not had urine output since morning and had a little bit dark urine after straight cath in the ER. Basic lab work done in ER shows leukocytosis 11.6 thousand, 13% band. UA WBC 5-10 cells, bacteria 4+ looks trace. Creatinine 2.93, BUN 80, increased from BUN/creatinine 96/2.67 at the time of discharge on 09/23/2018. She was given 500 mL normal saline, total of 2 dosages and 2 g Rocephin in ER and transferred directly to PCU for further management. Past Medical History Past Medical History (Chronic Problems): Chronic Problems (Last Updated 08/17/18 @ 13:56 by Antonette Brown MD) Acute kidney injury superimposed on chronic kidney disease (Chronic) COPD (chronic obstructive pulmonary disease) (Chronic) Chronic respiratory failure with hypoxia (Chronic) Chronic renal failure, stage 3 (moderate) (Chronic) 3-4 Hormone replacement therapy (Chronic) Pulmonary hypertension (Chronic) PA pressure 57 in November 2017 Stasis dermatitis (Chronic) Obesity, morbid, BMI 40.0-49.9 (Chronic) Gout (Chronic) Hypertension (Chronic) History of TIA (transient ischemic attack) (Chronic) 1998 History of kidney cancer (Chronic) S/P nephrectomy Medical History: Medical History (Last Updated 08/17/18 @ 13:56 by Antonette Brown MD) Cancer of right kidney 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 Impingement syndrome of left shoulder M75.42 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 DJD (degenerative joint disease) M19.90 Venous insufficiency I87.2 Elbow fracture, right S42.401A Allergies clindamycin [From Cleocin] Allergy (Verified 09/15/18 10:54) Unknown oxycodone HCl [From OxyContin] Allergy (Verified 09/15/18 10:54) Anaphylaxis Sulfa (Sulfonamide Antibiotics) Allergy (Verified 09/15/18 10:54) Anaphylaxis vancomycin Allergy (Verified 09/15/18 10:54) Hives guaifenesin [From Entex LA] Adverse Reaction (Verified 09/15/18 10:54) Unknown phenylephrine [From Entex LA] Adverse Reaction (Verified 09/15/18 10:54) Unknown phenylpropanolamine [From Entex LA] Adverse Reaction (Verified 09/15/18 10:54) Unknown BETA BLOCKERS Adverse Reaction (Uncoded 09/15/18 10:54) Unknown Home Medications: Ambulatory Orders Medication Instructions Recorded Estrogens, Conjugated [Premarin] 0.3 mg PO QHS 04/04/15 MedroxyPROGESTERone [Provera] 5 mg PO QHS 05/18/15 Aspirin 325 mg PO DAILY@0800 04/12/18 Felodipine [Plendil] 10 mg PO DAILY 08/16/18 Umeclidinium Brm/Vilanterol Tr 1 puff INHALATION DAILY 08/16/18 [Anoro Ellipta 62.5-25 Mcg INH] Cholecalciferol (Vitamin D3) 2,000 unit PO DAILY 09/15/18 [Vitamin D3] Hydrocodone/Acetaminophen [[place] 1 tab PO TID PRN PRN 09/15/18 5-325 Tablet] hydrALAZINE [Apresoline] 25 mg PO TID 09/15/18 Amiodarone HCl [Cordarone] 200 mg PO BID #60 tablet 09/23/18 Bumetanide [Bumex] 2 mg PO BIDLX #60 tablet 09/23/18 Diltiazem [Cardizem] 60 mg PO Q8 #90 tablet 09/23/18 Prednisone See Taper PO DAILY #9 tablet 09/23/18 Surgical History: Surgical History (Last Reviewed 08/16/18 @ 18:39 by Violeta Dowling DO) H/O rotator cuff surgery Z98.890 right History of appendectomy Z90.49 age 18 History of left knee replacement Z96.652 2007 History of nephrectomy Z90.5 1995 for cancer History of total right knee replacement Z96.651 2009 Hx of cholecystectomy Z90.49 2016 Hx of removal of ovary Surgical History: - - Tonsillectomy, appendectomy, cholecystectomy, bilateral shoulder rotator cuff repair, right elbow fracture with surgery with pin in place, bilateral total knee replacement. Renal cell carcinoma, Surgery for SBO, Single salpingectomy and oophorectomy for ectopic . Smoking Status: Former smoker - *Family History Paternal Family History: Family History (Last Reviewed 08/16/18 @ 18:39 by Violeta Dowling DO) Mother CAD (coronary artery disease) Father Colon cancer History Items: Cancer - Pancreatic CA, age 3838 years old., Diabetes, Heart Disease, Hypertension Maternal Family History: Family History (Last Reviewed 08/16/18 @ 18:39 by Violeta Dowling DO) Mother CAD (coronary artery disease) Father Colon cancer History Items: Heart Disease, Hypertension Review of Systems Constitutional: Reports: Malaise, Weakness Eyes: Denies: Conjunctivae Inflammation, Double vision HEENT: Denies: Head Aches, Sinus Congestion, Sinus Drainage Cardiovascular: Denies: Chest Pain, Palpitations Respiratory: Denies: Cough, Shortness of Breath, Shortness of breath at rest, Sputum production Gastrointestinal: Denies: Abdominal Pain, Nausea, Vomiting Genitourinary: Denies: Dysuria Musculoskeletal: Reports: Back Pain. Denies: Joint Pain, Joint Tenderness Skin: Denies: Rash, Wounds Neurological: Reports: Balance problems - Tonic, Blurred vision. Denies: Double vision, Change in Speech, Slurred speech, Focal weakness, Numbness, Tingling Psychiatric: Denies: Anxiety, Depression, Homicidal Ideations, Suicidal Ideations Hematologic/ Lymphatic: Denies: Easy Bruising, Easy Bleeding VTE Information - Inpt Only VTE Present on Admission: No VTE Mechan Device Prophylaxis: None VTE Pharm Prophylaxis ordered?: Yes Patient Problems: Active and Suspected Problems (Last Updated 08/17/18 @ 13:56 by Antonette Brown MD) Near syncope (Acute) UTI (urinary tract infection) (Acute) - Physical Exam General: Alert, Oriented x3, Cooperative HEENT: Atraumatic, PERRLA, EOMI, Normocephalic Neck: Supple, No JVD, Negative Carotid Bruits Lungs: No wheeze, Diminished - Air entry bilaterally equal but slightly diminished in both lung bases, Rales - Rales present in both lung bases, baseline from her last discharge Cardiovascular: Regular rate, Regular Rhythm, Normal S1, Normal S2, No murmurs Abdomen: Bowel Sounds Present, Soft, Non Tender, Non-Distended Extremities: No edema, Capillary Refill Less than 3 Seconds Skin: No rashes, No breakdown Musculoskeletal: No Tenderness to Palpation of Joints or Extremities, Arthritic Changes Lymphatic: No Cervical, Supraclavicular, or Inguinal Adenopathy Neurological: Cranial nerves II-XII grossly intact, Deep Tendon Reflexes 2+/4 and Symmetrical, Neuro grossly intact Psych/Mental Status: Normal Affect, Appropriate Body Mass Index (BMI) 38.8 Assessment/Plan All Active Problems (Last Updated 08/17/18 @ 13:56 by Antonette Brown MD) Near syncope (Acute) UTI (urinary tract infection) (Acute) The patient is a 83 year old F with multiple comorbidities including chronic heart failure with preserved EF and moderate pulmonary hypertension who was discharged on 09/23/2018 after 8 days of hospital stay for management of acute on chronic diastolic heart failure, intermittent V. tach, AK I on CKD stage III gouty arthritis. She is a direct transfer from [facility] for management of nonspecific symptoms including UTI as detailed below Today in the morning, she has not felt right although not able to describe exactly but felt foggy after she took morning medications around 10 AM. She felt a little bit dizzy but denies vertigo, change in visual field, chest pressure, shortness of breath, palpitation or nausea or vomiting. She did not had urine output since morning and had a little bit dark urine after straight cath in the ER. Basic lab work done in ER shows leukocytosis 11.6 thousand, 13% band. UA WBC 5-10 cells, bacteria 4+ looks trace. Creatinine 2.93, BUN 80, increased from BUN/creatinine 96/2.67 at the time of discharge on 09/23/2018. She was given 500 mL normal saline, total of 2 dosages and 2 g Rocephin in ER and transferred directly to PCU for further management. 1. Nonspecific symptoms including dizziness/foggy vision probably secondary to UTI: Patient is being admitted in PCU. Patient was given 1 L of normal saline in the [facility] ER. Chest x-ray PA and lateral ordered. Troponin negative. N-terminal proBNP 6219. 2. Asymptomatic bacteriuria/possible UTI: Repeat UA and urine culture ordered. Continue empirically Rocephin started in [facility] ER. 3. Arrhythmia: Sinus bradycardia, NSVT: EKG and altered mental orbital ER shows sinus bradycardia at 54 bpm, normal VT interval, normal QRS interval nonspecific ST-T changes. QTc 445 ms. Repeat twelve-lead EKG. The patient was started on amiodarone 200 mg twice daily last week during previous admission for NSVT in consultation with Dr. vidal. Patient was also on Cardizem 60 mg p.o. every 8 hourly. Hold rate slowing medications including Cardizem and amiodarone. 4. Chronic heart failure with preserved EF with moderate pulmonary hypertension: Patient had echo in November 2017 shows EF 60% with stage I diastolic dysfunction, mild concentric LVH. Moderate TR, RVSP 59 mmHg consistently moderate pulmonary hypertension. Mild eccentric MR. LA moderately enlarged. Patient had negative nuclear stress test in April 07, 2018. Repeat 2D echo on September 21, 2018 shows EF 65% with no regional wall motion abnormalities. Mildly dilated RV with normal systolic function. LA mildly enlarged. RA mildly enlarged. Trivial MR with moderate mitral annular calcification with extension into posterior mitral valve leaflet. Trivial TR with RVSP 72 mmHg. Patient was seen by sales agent insurance was treated with Lasix drip and Zaroxolyn for 3 days and then switched to oral bumetanide 2 mg twice daily. BUN/creatinine 80/2.93 is increased from her baseline. Hold diuretics and repeat BMP tomorrow a.m. Follow-up chest x-ray. 5. Acute kidney injury on CKD stage III, possible secondary to diuretics: Hold diuretics and follow-up BMP. consult [facility] who saw her last time. 6. COPD with chronic hypoxic respiratory failure: Stable. Continue oxygen 7. Other chronic comorbidities include hypertension, history of kidney cancer status post nephrectomy, gout, morbid obesity: Home medication reconciliation done DVT prophylaxis: On heparin 5000 UNITS subcutaneous twice daily. Discontinue if platelet count drops less than 90,000 or hemoglobin less than 8 g% Code Visit Inpatient E&M: 12960 Init Hosp L3
--- NOTE | 2018-09-28 20:31 | HP.PCM_ITS ---
Problem List (1) Near syncope Status: Acute (2) Acute kidney injury superimposed on chronic kidney disease Status: Chronic (3) COPD (chronic obstructive pulmonary disease) Status: Chronic (4) Chronic respiratory failure with hypoxia Status: Chronic (5) Chronic renal failure, stage 3 (moderate) Status: Chronic Comment: 3-4 (6) Hormone replacement therapy Status: Chronic (7) Pulmonary hypertension Status: Chronic Comment: PA pressure 57 in November 2017 (8) Stasis dermatitis Status: Chronic (9) Obesity, morbid, BMI 40.0-49.9 Status: Chronic (10) Gout Status: Chronic Qualifiers: (11) Hypertension Status: Chronic Qualifiers: (12) History of TIA (transient ischemic attack) Status: Chronic Comment: 1998 (13) History of kidney cancer Status: Chronic Comment: S/P nephrectomy (14) UTI (urinary tract infection) Status: Acute History of Present Illness Date of Admission: 09/28/18 Chief Complaint: Dizzy feeling, nonspecific symptoms today morning The patient is a 83 year old F with multiple comorbidities including chronic heart failure with preserved EF and moderate pulmonary hypertension who was discharged on 09/23/2018 after 8 days of hospital stay for management of acute on chronic diastolic heart failure, intermittent V. tach, AK I on CKD stage III gouty arthritis. She is a direct transfer from [facility] ER for management of nonspecific symptoms including UTI as detailed below Today in the morning, she has not felt right although not able to describe exactly but felt foggy after she took morning medications around 10 AM. She felt a little bit dizzy but denies vertigo, change in visual field, chest pressure, shortness of breath, palpitation or nausea or vomiting. She did not had urine output since morning and had a little bit dark urine after straight cath in the ER. Basic lab work done in ER shows leukocytosis 11.6 thousand, 13% band. UA WBC 5-10 cells, bacteria 4+ looks trace. Creatinine 2.93, BUN 80, increased from BUN/creatinine 96/2.67 at the time of discharge on 09/23/2018. She was given 500 mL normal saline, total of 2 dosages and 2 g Rocephin in ER and transferred directly to PCU for further management. Past Medical History Past Medical History (Chronic Problems): Chronic Problems (Last Updated 08/17/18 @ 13:56 by Antonette Brown MD) Acute kidney injury superimposed on chronic kidney disease (Chronic) COPD (chronic obstructive pulmonary disease) (Chronic) Chronic respiratory failure with hypoxia (Chronic) Chronic renal failure, stage 3 (moderate) (Chronic) 3-4 Hormone replacement therapy (Chronic) Pulmonary hypertension (Chronic) PA pressure 57 in November 2017 Stasis dermatitis (Chronic) Obesity, morbid, BMI 40.0-49.9 (Chronic) Gout (Chronic) Hypertension (Chronic) History of TIA (transient ischemic attack) (Chronic) 1998 History of kidney cancer (Chronic) S/P nephrectomy Medical History: Medical History (Last Updated 08/17/18 @ 13:56 by Antonette Brown MD) Cancer of right kidney 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 Impingement syndrome of left shoulder M75.42 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 DJD (degenerative joint disease) M19.90 Venous insufficiency I87.2 Elbow fracture, right S42.401A Allergies clindamycin [From Cleocin] Allergy (Verified 09/15/18 10:54) Unknown oxycodone HCl [From OxyContin] Allergy (Verified 09/15/18 10:54) Anaphylaxis Sulfa (Sulfonamide Antibiotics) Allergy (Verified 09/15/18 10:54) Anaphylaxis vancomycin Allergy (Verified 09/15/18 10:54) Hives guaifenesin [From Entex LA] Adverse Reaction (Verified 09/15/18 10:54) Unknown phenylephrine [From Entex LA] Adverse Reaction (Verified 09/15/18 10:54) Unknown phenylpropanolamine [From Entex LA] Adverse Reaction (Verified 09/15/18 10:54) Unknown BETA BLOCKERS Adverse Reaction (Uncoded 09/15/18 10:54) Unknown Home Medications: Ambulatory Orders Medication Instructions Recorded Estrogens, Conjugated [Premarin] 0.3 mg PO QHS 04/04/15 MedroxyPROGESTERone [Provera] 5 mg PO QHS 05/18/15 Aspirin 325 mg PO DAILY@0800 04/12/18 Felodipine [Plendil] 10 mg PO DAILY 08/16/18 Umeclidinium Brm/Vilanterol Tr 1 puff INHALATION DAILY 08/16/18 [Anoro Ellipta 62.5-25 Mcg INH] Cholecalciferol (Vitamin D3) 2,000 unit PO DAILY 09/15/18 [Vitamin D3] Hydrocodone/Acetaminophen [[place] 1 tab PO TID PRN PRN 09/15/18 5-325 Tablet] hydrALAZINE [Apresoline] 25 mg PO TID 09/15/18 Amiodarone HCl [Cordarone] 200 mg PO BID #60 tablet 09/23/18 Bumetanide [Bumex] 2 mg PO BIDLX #60 tablet 09/23/18 Diltiazem [Cardizem] 60 mg PO Q8 #90 tablet 09/23/18 Prednisone See Taper PO DAILY #9 tablet 09/23/18 Surgical History: Surgical History (Last Reviewed 08/16/18 @ 18:39 by Violeta Dowling DO) H/O rotator cuff surgery Z98.890 right History of appendectomy Z90.49 age 18 History of left knee replacement Z96.652 2007 History of nephrectomy Z90.5 1995 for cancer History of total right knee replacement Z96.651 2009 Hx of cholecystectomy Z90.49 2016 Hx of removal of ovary Surgical History: - - Tonsillectomy, appendectomy, cholecystectomy, bilateral shoulder rotator cuff repair, right elbow fracture with surgery with pin in p lace, bilateral total knee replacement. Renal cell carcinoma, Surgery for SBO, Single salpingectomy and oophorectomy for ectopic . Smoking Status: Former smoker - *Family History Paternal Family History: Family History (Last Reviewed 08/16/18 @ 18:39 by Violeta Dowling DO) Mother CAD (coronary artery disease) Father Colon cancer History Items: Cancer - Pancreatic CA, age 3838 years old., Diabetes, Heart Disease, Hypertension Maternal Family History: Family History (Last Reviewed 08/16/18 @ 18:39 by Violeta Dowling DO) Mother CAD (coronary artery disease) Father Colon cancer History Items: Heart Disease, Hypertension Review of Systems Constitutional: Reports: Malaise, Weakness Eyes: Denies: Conjunctivae Inflammation, Double vision HEENT: Denies: Head Aches, Sinus Congestion, Sinus Drainage Cardiovascular: Denies: Chest Pain, Palpitations Respiratory: Denies: Cough, Shortness of Breath, Shortness of breath at rest, Sputum production Gastrointestinal: Denies: Abdominal Pain, Nausea, Vomiting Genitourinary: Denies: Dysuria Musculoskeletal: Reports: Back Pain. Denies: Joint Pain, Joint Tenderness Skin: Denies: Rash, Wounds Neurological: Reports: Balance problems - Tonic, Blurred vision. Denies: Double vision, Change in Speech, Slurred speech, Focal weakness, Numbness, Tingling Psychiatric: Denies: Anxiety, Depression, Homicidal Ideations, Suicidal Ideations Hematologic/ Lymphatic: Denies: Easy Bruising, Easy Bleeding VTE Information - Inpt Only VTE Present on Admission: No VTE Mechan Device Prophylaxis: None VTE Pharm Prophylaxis ordered?: Yes Patient Problems: Active and Suspected Problems (Last Updated 08/17/18 @ 13:56 by Antonette Brown MD) Near syncope (Acute) UTI (urinary tract infection) (Acute) - Physical Exam General: Alert, Oriented x3, Cooperative HEENT: Atraumatic, PERRLA, EOMI, Normocephalic Neck: Supple, No JVD, Negative Carotid Bruits Lungs: No wheeze, Diminished - Air entry bilaterally equal but slightly diminished in both lung bases, Rales - Rales present in both lung bases, baseline from her last discharge Cardiovascular: Regular rate, Regular Rhythm, Normal S1, Normal S2, No murmurs Abdomen: Bowel Sounds Present, Soft, Non Tender, Non-Distended Extremities: No edema, Capillary Refill Less than 3 Seconds Skin: No rashes, No breakdown Musculoskeletal: No Tenderness to Palpation of Joints or Extremities, Arthritic Changes Lymphatic: No Cervical, Supraclavicular, or Inguinal Adenopathy Neurological: Cranial nerves II-XII grossly intact, Deep Tendon Reflexes 2+/4 and Symmetrical, Neuro grossly intact Psych/Mental Status: Normal Affect, Appropriate Body Mass Index (BMI) 38.8 Assessment/Plan All Active Problems (Last Updated 08/17/18 @ 13:56 by Antonette Brown MD) Near syncope (Acute) UTI (urinary tract infection) (Acute) The patient is a 83 year old F with multiple comorbidities including chronic heart failure with preserved EF and moderate pulmonary hypertension who was discharged on 09/23/2018 after 8 days of hospital stay for management of acute on chronic diastolic heart failure, intermittent V. tach, AK I on CKD stage III gouty arthritis. She is a direct transfer from [facility] for management of nonspecific symptoms including UTI as detailed below Today in the morning, she has not felt right although not able to describe exactly but felt foggy after she took morning medications around 10 AM. She felt a little bit dizzy but denies vertigo, change in visual field, chest pressure, shortness of breath, palpitation or nausea or vomiting. She did not had urine output since morning and had a little bit dark urine after straight cath in the ER. Basic lab work done in ER shows leukocytosis 11.6 thousand, 13% band. UA WBC 5-10 cells, bacteria 4+ looks trace. Creatinine 2.93, BUN 80, increased from BUN/creatinine 96/2.67 at the time of discharge on 09/23/2018. She was given 500 mL normal saline, total of 2 dosages and 2 g Rocephin in ER and transferred directly to PCU for further management. 1. Nonspecific symptoms including dizziness/foggy vision probably secondary to UTI: Patient is being admitted in PCU. Patient was given 1 L of normal saline in the [facility] ER. Chest x-ray PA and lateral ordered. Troponin negative. N-terminal proBNP 6219. 2. Asymptomatic bacteriuria/possible UTI: Repeat UA and urine culture ordered. Continue empirically Rocephin started in [facility] ER. 3. Arrhythmia: Sinus bradycardia, NSVT: EKG and altered mental orbital ER shows sinus bradycardia at 54 bpm, normal RI interval, normal QRS interval nonspecific ST-T changes. QTc 445 ms. Repeat twelve-lead EKG. The patient was started on amiodarone 200 mg twice daily last week during previous admission for NSVT in consultation with Dr. vidal. Patient was also on Cardizem 60 mg p.o . every 8 hourly. Hold rate slowing medications including Cardizem and amiodarone. 4. Chronic heart failure with preserved EF with moderate pulmonary hypertension: Patient had echo in November 2017 shows EF 60% with stage I diastolic dysfunction, mild concentric LVH. Moderate TR, RVSP 59 mmHg consistently moderate pulmonary hypertension. Mild eccentric MR. LA moderately enlarged. Patient had negative nuclear stress test in April 07, 2018. Repeat 2D echo on September 21, 2018 shows EF 65% with no regional wall motion abnormalities. Mildly dilated RV with normal systolic function. LA mildly enlarged. RA mildly enlarged. Trivial MR with moderate mitral annular calcification with extension into posterior mitral valve leaflet. Trivial TR with RVSP 72 mmHg. Patient was seen by sleeping car service attendant was treated with Lasix drip and Zaroxolyn for 3 days and then switched to oral bumetanide 2 mg twice daily. BUN/creatinine 80/2.93 is increased from her baseline. Hold diuretics and repeat BMP tomorrow a.m. Follow-up chest x-ray. 5. Acute kidney injury on CKD stage III, possible secondary to diuretics: Hold diuretics and follow-up BMP. consult [facility] who saw her last time. 6. COPD with chronic hypoxic respiratory failure: Stable. Continue oxygen 7. Other chronic comorbidities include hypertension, history of kidney cancer status post nephrectomy, gout, morbid obesity: Home medication reconciliation done DVT prophylaxis: On heparin 5000 UNITS subcutaneous twice daily. Discontinue if platelet count drops less than 90,000 or hemoglobin less than 8 g% Code Visit Inpatient E&M: 78078 Init Hosp L3
[2018-09-28 20:45] VITALS: BMI 37.2
[2018-09-28 20:56] VITALS: PULSE 59
--- NOTE | 2018-09-28 21:01 | EKG12_ITS ---
Test Reason : ARRYTHMIA Blood Pressure : / mmHG Vent. Rate : 057 BPM Atrial Rate : 057 BPM P-R Int : 168 ms QRS Dur : 090 ms QT Int : 462 ms P-R-T Axes : 076 061 010 degrees QTc Int : 449 ms Sinus bradycardia Otherwise normal ECG Confirmed by BETTY SHELDON, SIMIN ([id number]), editor publications [employer] STODDARD ([id number]) on 10/01/2018 2:41:36 PM Referred By: Antonette Brown Confirmed By:SIMIN HERNÁNDEZ MD
--- NOTE | 2018-09-28 21:15 | RAD_ITS ---
STUDY: X-RAY CHEST REASON FOR EXAM: Female, 83 years old. CHF TECHNIQUE: Frontal and lateral views of the chest. COMPARISON: 09/20/2018 FINDINGS: Interval improvement in pulmonary edema. Improving right basilar alveolar disease. There is no demonstrated pleural abnormality. Normal size heart. Normal mediastinum and awilda. Normal visualized pulmonary arteries. Normal visualized aortic arch and descending thoracic aorta. There are diffuse degenerative changes of the visualized thoracic spine. There is degenerative osteoarthritis of the bilateral shoulders. Right rotator cuff repair. Abdominal clips. RAD/Chest PA and Lateral IMPRESSION: Interval improvement in pulmonary edema. Improving right basilar alveolar disease. Electronically Signed: Yair Gage MD at 22:07 EST Tel , Service support ,
[2018-09-28 21:27] LABS: Mucous, Urine 0 SEEN /hpf (<or=2+); Red Blood Cells-Urine 0 SEEN /hpf (0-5)
[2018-09-28 21:37] LABS: Color, Urine Yellow (Yellow); Glucose, Dipstick Normal (Normal); Ketone-Dipstick Negative (Negative); Leukocyte Esterase-Dipstick 100 /ul (Negative); Nitrite-Dipstick Negative (Negative); Occult Blood-Urine Negative /ul (Negative); Protein-Dipstick 100 mg/dl (Negative); Urine Bilirubin Dipstick Negative (Negative); Urine Clarity Clear (Clear); Urine Urobilinogen Normal (Normal)
[2018-09-28 21:55] LABS: White Blood Cells 5-10 SEEN /hpf (0-5)
[2018-09-28 21:56] LABS: Bacteria RARE /hpf (None Seen); Squamous Epithelial Cells - UA 0-5 SEEN /hpf (5-10)
[2018-09-28 23:13] VITALS: PULSE 60
[2018-09-28] MEDS: Heparin Injection (Vial) 5,000 UNIT/ML VIAL 5000 UNIT SC (23:20)
[2018-09-28 23:25] VITALS: BP 120/53; PULSE 61; RESP 20; TEMP 36.6; O2SAT 96
[2018-09-28 23:27] VITALS: BP 120/53; PULSE 61
[2018-09-29] VITALS (20 sets, daily range): BP systolic 124–152; BP diastolic 47–92; PULSE 68–112; RESP 18–20; TEMP 36.3–37; O2SAT 95–99
[2018-09-29 05:45] LABS: Absolute Lymphocyte Count 1.71 X10^3/ul (0.83-4.51); Absolute Neutrophil Count 5.5 X10^3/uL (2.0-7.7); Basophil# 0.03 X10^3/uL; Basophil% 0.4 % (0-1); Eosinophil# 0.12 X10^3/uL; Eosinophils% 1.5 % (0-5); Hemoglobin 12.5 g/dl (12.0-15.0); Lymphocyte # 1.71 X10^3/ul (4.0); Lymphocyte % 21.1 % (19-41); Mean Corp Hgb Conc 32.1 g/gl (32-36); Mean Corpuscular Hgb 28.5 pg (27.0-32.0); Mean Corpuscular Volume 88.8 fL (81-99); Mean Platelet Vol. 10.9 fl (6.2-12.0); Monocyte% 8.7 % (0-10); Neutrophil # 5.49 X10^3/uL (2.7-7.7); Neutrophil % 67.8 % (47-70); Platelet Count 219 K/mm3 (150-450); RBC Distribution Width CV 15.6 % (11.6-14.6); RBC Distribution Width SD 49.8 fl (35.1-43.9); Red Blood Count 4.39 M/mm3 (4.2-5.4); White Blood Count 8.1 K/mm3 (4.4-11.0)
[2018-09-29 06:00] LABS: Anion Gap 9 (5-15); BUN 76 mg/dL (7-18); Chloride 105 mmol/L (98-107); Creatinine, Serum 2.62 mg/dL (0.55-1.02); EST Glomerular Filtration Rate 19 mL/min (>60); Est Glom Filt Rate - Afr Amer 23 mL/min (>60); Estimated Creatinine Clearance 15.76 ml/min; Glucose 98 mg/dL (74-106); POSITIVE COUNT NO; POSITIVE DIFFERENTIAL NO; POSITIVE MORPHOLOGY NO; Potassium 3.4 mmol/L (3.5-5.1); Sodium Level 145 mmol/L (136-145)
[2018-09-29] MEDS: hydrALAZINE 25 MG Tablet PO ×3 (07:29→21:42)
[2018-09-29] MEDS: Ceftriaxone 1 GM/50 ML BAG IV (09:00)
[2018-09-29] MEDS: Aspirin 325 MG Tablet PO (09:01)
[2018-09-29] MEDS: Heparin Injection (Vial) 5,000 UNIT/ML VIAL 5000 UNIT SC ×2 (09:01→21:43)
--- NOTE | 2018-09-29 09:16 | PCM.CONS.R ---
Problem List (1) Acute kidney injury superimposed on chronic kidney disease Status: Chronic Consultation - Renal PCP/ Referring MD: Requesting physician: [] Primary care physician: Dustin Mendieta MD - History of Present Illness History of Present Illness: The patient is a 83 year old F past medical history of 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 Patient was recently discharged from the hospital after she was treated for CHF decompensation along with acute kidney injury IN chronic kidney disease and hyperkalemia . Acute kidney injury in the previous admissions was contributed to cardiorenal syndrome . Patient improved with diuretics . Creatinine on discharge was 2.6 mg a deciliter . Patient was discharged with Bumex 2 mg twice a day . Patient states she has been doing well at home up until yesterday when she felt very weak and her body was about to give up . Patient presented to [facility] where her kidney function was found to be worse with a creatinine 2.9 mg a deciliter Along with UTI . Patient was given 1 L of normal saline and Rocephin and transferred to [facility] . Patient states she is feeling slightly better today but still weak . Heart rate was found to be low yesterday at 55 . Patient has been on amiodarone at home along with calcium channel bill diltiazem . No NSAIDs used , no dysuria , breathing stable . No chest pain Review of system : 12 systems review is negative except what mentioned in HPI [] - Allergies Allergies: Allergies clindamycin [From Cleocin] Allergy (Verified 09/15/18 10:54) Unknown oxycodone HCl [From OxyContin] Allergy (Verified 09/15/18 10:54) Anaphylaxis Sulfa (Sulfonamide Antibiotics) Allergy (Verified 09/15/18 10:54) Anaphylaxis vancomycin Allergy (Verified 09/15/18 10:54) Hives guaifenesin [From Entex LA] Adverse Reaction (Verified 09/15/18 10:54) Unknown phenylephrine [From Entex LA] Adverse Reaction (Verified 09/15/18 10:54) Unknown phenylpropanolamine [From Entex LA] Adverse Reaction (Verified 09/15/18 10:54) Unknown BETA BLOCKERS Adverse Reaction (Uncoded 09/15/18 10:54) Unknown - Current Medications Current Medications: Current Medications Hydrocodone Bitart/Acetaminophen ([place] 5mg-325mg) 1 tablet PO TID PRN PRN PRN Reason: PAIN Al Hydroxide/Mg Hydroxide (Mylanta Ii) 30 ml PO Q6H PRN PRN PRN Reason: Gastric burning Albuterol/Ipratropium (Duoneb) 3 ml INHALATION Q4H PRN PRN Reason: sob Albuterol/Ipratropium (Duoneb) 3 ml INHALATION Q6HWA.RT [facility] Last Admin: 09/29/18 07:00 Dose: Not Given Aspirin (Aspirin) 325 mg PO DAILY@0800 [facility] Last Admin: 09/29/18 09:01 Dose: 325 mg Cholecalciferol (Vitamin D) 2,000 unit PO DAILY [facility] Last Admin: 09/29/18 09:01 Dose: 2,000 unit Heparin Sodium (Porcine) (Heparin Na) 5,000 unit SC Q12 [facility] Last Admin: 09/29/18 09:01 Dose: 5,000 unit Hydralazine HCl (Apresoline) 25 mg PO TID [facility] Last Admin: 09/29/18 07:29 Dose: 25 mg Ceftriaxone Sodium (Rocephin) 1 gm in 50 mls @ 100 mls/hr IV Q24H [facility] Last Admin: 09/29/18 09:00 Dose: 100 mls/hr Magnesium Hydroxide (Milk Of Magnesia) 30 ml PO DAILY PRN PRN Reason: Constipation Ondansetron HCl (Zofran) 4 mg IV Q8H PRN PRN PRN Reason: NAUSEA Zolpidem Tartrate (Ambien (Generic)) 5 mg PO QHS PRN PRN PRN Reason: INSOMNIA - Past Medical History Past Medical History (Chronic Problems): Chronic Problems (Last Updated 08/17/18 @ 13:56 by Antonette Brown MD) Acute kidney injury superimposed on chronic kidney disease (Chronic) COPD (chronic obstructive pulmonary disease) (Chronic) Chronic respiratory failure with hypoxia (Chronic) Chronic renal failure, stage 3 (moderate) (Chronic) 3-4 Hormone replacement therapy (Chronic) Pulmonary hypertension (Chronic) PA pressure 57 in November 2017 Stasis dermatitis (Chronic) Obesity, morbid, BMI 40.0-49.9 (Chronic) Gout (Chronic) Hypertension (Chronic) History of TIA (transient ischemic attack) (Chronic) 1998 History of kidney cancer (Chronic) S/P nephrectomy - Past Surgical History Surgical History: - - Tonsillectomy, appendectomy, cholecystectomy, bilateral shoulder rotator cuff repair, right elbow fracture with surgery with pin in place, bilateral total knee replacement. Renal cell carcinoma, Surgery for SBO, Single salpingectomy and oophorectomy for ectopic . - Social History Smoking Status: Former smoker - Family History Paternal Family History: Family History (Last Reviewed 08/16/18 @ 18:39 by Violeta Dowling DO) Mother CAD (coronary artery disease) Father Colon cancer History Items: Cancer - Pancreatic CA, age 3838 years old., Diabetes, Heart Disease, Hypertension Maternal Family History: Family History (Last Reviewed 08/16/18 @ 18:39 by Violeta Dowling DO) Mother CAD (coronary artery disease) Father Colon cancer History Items: Heart Disease, Hypertension Patient Problems: Active and Suspected Problems (Last Updated 08/17/18 @ 13:56 by Antonette Brown MD) Near syncope (Acute) UTI (urinary tract infection) (Acute) - Physical Exam General: Alert, Oriented x3 HEENT: Atraumatic Vital Signs Temp Pulse Resp BP Pulse Ox 97.8 F 75 18 124/74 H 97 09/29/18 07:08 09/29/18 08:07 09/29/18 08:07 09/29/18 07:29 09/29/18 08:07 Oxygen Flow Rate (L/min) 3 Oxygen Delivery Method Nasal Cannula Weight: 104.6 kg Body Mass Index (BMI) 37.2 Intake and Output for Last 24 Hours 09/27/18 09/28/18 09/29/18 23:59 23:59 23:59 Intake Total 200 / 200 100 / 100 Output Total 150 / 150 300 / 300 Balance 50 / 50 -200 / -200 Laboratory Tests Past 24 Hrs 09/28/18 09/29/18 09/29/18 21:15 05:20 05:20 WBC 8.1 RBC 4.39 Hgb 12.5 Hct 39.0 MCV 88.8 MCH 28.5 MCHC 32.1 RDW 15.6 H RDW Differential 49.8 H Plt Count 219 MPV 10.9 Immature Gran % (Auto) 0.500 Neut % (Auto) 67.8 Lymph % (Auto) 21.1 [place] % (Auto) 8.7 Eos % (Auto) 1.5 Baso % (Auto) 0.4 Absolute Neuts (auto) 5.5 Absolute Lymphs (auto) 1.71 Total Counted Not Reportable Sodium 145 Potassium 3.4 L Chloride 105 Carbon Dioxide 31.0 Anion Gap 9 BUN 76 H Creatinine 2.62 H Estim Creat Clear Calc 15.76 Est GFR (MDRD) Af Amer 23 L Est GFR (MDRD) Non-Af 19 L BUN/Creatinine Ratio 29.0 H Glucose 98 Calcium 8.0 L Urine Color Yellow Urine Clarity Clear Urine pH 5.0 Ur Specific [place] 1.020 Urine Protein 100 H Urine Glucose (UA) Normal Urine Ketones Negative Urine Occult Blood Negative Urine Nitrite Negative Urine Bilirubin Negative Urine Urobilinogen Normal Ur Leukocyte Esterase 100 H Urine RBC 0 SEEN Urine WBC 5-10 SEEN Ur Squamous Epith Cells 0-5 SEEN Urine Bacteria RARE Urine Mucus 0 SEEN Assessment/Plan All Active Problems (Last Updated 08/17/18 @ 13:56 by Antonette Brown MD) Near syncope (Acute) UTI (urinary tract infection) (Acute) 1-acute kidney injury on chronic kidney disease. 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 Baseline creatinine seems around 1.6. Patient had history of recent AK I from cardiorenal syndrome. Acute kidney injury for this admission is most probably prerenal from hemodynamic instability along with diuretics. Creatinine peaked at 2.9 mg a deciliter. Creatinine improved to the previous level at 2.6 with holding diuretics and IV fluid. I will restart the patient on lower dose of Bumex 1 mg twice a day. I will continue to monitor electrolytes and kidney function closely while on diuretics. Please keep mean arterial pressure more than 65. Avoid NSAIDs and nephrotoxic. 2-hypertension: Blood pressure is well controlled. I will start diuretics to avoid pressor patient I will continue the same dose of hydralazine. 3-CHF with preserved ejection fraction: Compensated now. I will start diuretics. 4-UTI: Antibiotics as per the primary service physician. Thank you for the consult. Renal team will continue to follow
--- NOTE | 2018-09-29 09:20 | CON.PCM_ITS ---
Problem List (1) Acute kidney injury superimposed on chronic kidney disease Status: Chronic Consultation - Renal PCP/ Referring MD: Requesting physician: [] Primary care physician: Dustin Mendieta MD - History of Present Illness History of Present Illness: The patient is a 83 year old F past medical history of 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 Patient was recently discharged from the hospital after she was treated for CHF decompensation along with acute kidney injury IN chronic kidney disease and hyperkalemia . Acute kidney injury in the previous admissions was contributed to cardiorenal syndrome . Patient improved with diuretics . Creatinine on discharge was 2.6 mg a deciliter . Patient was discharged with Bumex 2 mg twice a day . Patient states she has been doing well at home up until yesterday when she felt very weak and her body was about to give up . Patient presented to [facility] where her kidney function was found to be worse with a creatinine 2.9 mg a deciliter Along with UTI . Patient was given 1 L of normal saline and Rocephin and transferred to [facility] . Patient states she is feeling slightly better today but still weak . Heart rate was found to be low yesterday at 55 . Patient has been on amiodarone at home along with calcium channel bill diltiazem . No NSAIDs used , no dysuria , breathing stable . No chest pain Review of system : 12 systems review is negative except what mentioned in HPI [] - Allergies Allergies: Allergies clindamycin [From Cleocin] Allergy (Verified 09/15/18 10:54) Unknown oxycodone HCl [From OxyContin] Allergy (Verified 09/15/18 10:54) Anaphylaxis Sulfa (Sulfonamide Antibiotics) Allergy (Verified 09/15/18 10:54) Anaphylaxis vancomycin Allergy (Verified 09/15/18 10:54) Hives guaifenesin [From Entex LA] Adverse Reaction (Verified 09/15/18 10:54) Unknown phenylephrine [From Entex LA] Adverse Reaction (Verified 09/15/18 10:54) Unknown phenylpropanolamine [From Entex LA] Adverse Reaction (Verified 09/15/18 10:54) Unknown BETA BLOCKERS Adverse Reaction (Uncoded 09/15/18 10:54) Unknown - Current Medications Current Medications: Current Medications Hydrocodone Bitart/Acetaminophen ([place] 5mg-325mg) 1 tablet PO TID PRN PRN PRN Reason: PAIN Al Hydroxide/Mg Hydroxide (Mylanta Ii) 30 ml PO Q6H PRN PRN PRN Reason: Gastric burning Albuterol/Ipratropium (Duoneb) 3 ml INHALATION Q4H PRN PRN Reason: sob Albuterol/Ipratropium (Duoneb) 3 ml INHALATION Q6HWA.RT [facility] Last Admin: 09/29/18 07:00 Dose: Not Given Aspirin (Aspirin) 325 mg PO DAILY@0800 [facility] Last Admin: 09/29/18 09:01 Dose: 325 mg Cholecalciferol (Vitamin D) 2,000 unit PO DAILY [facility] Last Admin: 09/29/18 09:01 Dose: 2,000 unit Heparin Sodium (Porcine) (Heparin Na) 5,000 unit SC Q12 [facility] Last Admin: 09/29/18 09:01 Dose: 5,000 unit Hydralazine HCl (Apresoline) 25 mg PO TID [facility] Last Admin: 09/29/18 07:29 Dose: 25 mg Ceftriaxone Sodium (Rocephin) 1 gm in 50 mls @ 100 mls/hr IV Q24H [facility] Last Admin: 09/29/18 09:00 Dose: 100 mls/hr Magnesium Hydroxide (Milk Of Magnesia) 30 ml PO DAILY PRN PRN Reason: Constipation Ondansetron HCl (Zofran) 4 mg IV Q8H PRN PRN PRN Reason: NAUSEA Zolpidem Tartrate (Ambien (Generic)) 5 mg PO QHS PRN PRN PRN Reason: INSOMNIA - Past Medical History Past Medical History (Chronic Problems): Chronic Problems (Last Updated 08/17/18 @ 13:56 by Antonette Brown MD) Acute kidney injury superimposed on chronic kidney disease (Chronic) COPD (chronic obstructive pulmonary disease) (Chronic) Chronic respiratory failure with hypoxia (Chronic) Chronic renal failure, stage 3 (moderate) (Chronic) 3-4 Hormone replacement therapy (Chronic) Pulmonary hypertension (Chronic) PA pressure 57 in November 2017 Stasis dermatitis (Chronic) Obesity, morbid, BMI 40.0-49.9 (Chronic) Gout (Chronic) Hypertension (Chronic) History of TIA (transient ischemic attack) (Chronic) 1998 History of kidney cancer (Chronic) S/P nephrectomy - Past Surgical History Surgical History: - - Tonsillectomy, appendectomy, cholecystectomy, bilateral shoulder rotator cuff repair, right elbow fracture with surgery with pin in place, bilateral total knee replacement. Renal cell carcinoma, Surgery for SBO, Single salpingectomy and oophorectomy for ectopic . - Social History Smoking Status: Former smoker - Family History Paternal Family History: Family History (Last Reviewed 08/16/18 @ 18:39 by Violeta Dowling DO) Mother CAD (coronary artery disease) Father Colon cancer History Items: Cancer - Pancreatic CA, age 3840 years old., Diabetes, Heart Disease, Hypertension Maternal Family History: Family History (Last Reviewed 08/16/18 @ 18:39 by Violeta Dowling DO) Mother CAD (coronary artery disease) Father Colon cancer History Items: Heart Disease, Hypertension Patient Problems: Active and Suspected Problems (Last Updated 08/17/18 @ 13:56 by Antonette Brown MD) Near syncope (Acute) UTI (urinary tract infection) (Acute) - Physical Exam General: Alert, Oriented x3 HEENT: Atraumatic Vital Signs Temp Pulse Resp BP Pulse Ox 97.8 F 75 18 124/74 H 97 09/29/18 07:08 09/29/18 08:07 09/29/18 08:07 09/29/18 07:29 09/29/18 08:07 Oxygen Flow Rate (L/min) 3 Oxygen Delivery Method Nasal Cannula Weight: 104.6 kg Body Mass Index (BMI) 37.2 Intake and Output for Last 24 Hours 09/27/18 09/28/18 09/29/18 23:59 23:59 23:59 Intake Total 200 / 200 100 / 100 Output Total 150 / 150 300 / 300 Balance 50 / 50 -200 / -200 Laboratory Tests Past 24 Hrs 09/28/18 09/29/18 09/29/18 21:15 05:20 05:20 WBC 8.1 RBC 4.39 Hgb 12.5 Hct 39.0 MCV 88.8 MCH 28.5 MCHC 32.1 RDW 15.6 H RDW Differential 49.8 H Plt Count 219 MPV 10.9 Immature Gran % (Auto) 0.500 Neut % (Auto) 67.8 Lymph % (Auto) 21.1 [place] % (Auto) 8.7 Eos % (Auto) 1.5 Baso % (Auto) 0.4 Absolute Neuts (auto) 5.5 Absolute Lymphs (auto) 1.71 Total Counted Not Reportable Sodium 145 Potassium 3.4 L Chloride 105 Carbon Dioxide 31.0 Anion Gap 9 BUN 76 H Creatinine 2.62 H Estim Creat Clear Calc 15.76 Est GFR (MDRD) Af Amer 23 L Est GFR (MDRD) Non-Af 19 L BUN/Creatinine Ratio 29.0 H Glucose 98 Calcium 8.0 L Urine Color Yellow Urine Clarity Clear Urine pH 5.0 Ur Specific [place] 1.020 Urine Protein 100 H Urine Glucose (UA) Normal Urine Ketones Negative Urine Occult Blood Negative Urine Nitrite Negative Urine Bilirubin Negative Urine Urobilinogen Normal Ur Leukocyte Esterase 100 H Urine RBC 0 SEEN Urine WBC 5-10 SEEN Ur Squamous Epith Cells 0-5 SEEN Urine Bacteria RARE Urine Mucus 0 SEEN Assessment/Plan All Active Problems (Last Updated 08/17/18 @ 13:56 by Antonette Brown MD) Near syncope (Acute) UTI (urinary tract infection) (Acute) 1-acute kidney injury on chronic kidney disease. 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 Baseline creatinine seems around 1.6. Patient had history of recent AK I from cardiorenal syndrome. Acute kidney injury for this admission is most probably prerenal from hemodynamic instability along with diuretics. Creatinine peaked at 2.9 mg a deciliter. Creatinine improved to the previous level at 2.6 with holding diuretics and IV fluid. I will restart the patient on lower dose of Bumex 1 mg twice a day. I will continue to monitor electrolytes and kidney function closely while on diuretics. Please keep mean arterial pressure more than 65. Avoid NSAIDs and nephrotoxic. 2-hypertension: Blood pressure is well controlled. I will start diuretics to avoid pressor patient I will continue the same dose of hydralazine. 3-CHF with preserved ejection fraction: Compensated now. I will start diuretics. 4-UTI: Antibiotics as per the primary service physician. Thank you for the consult. Renal team will continue to follow
--- NOTE | 2018-09-29 10:45 | PCM.PN.HOSP ---
Patient Problems: Active and Suspected Problems (Last Updated 08/17/18 @ 13:56 by Antonette Brown MD) Near syncope (Acute) Subjective: Feels good. No further dizziness. Dizziness began yesterday. Vitals/I&O's: Vital Signs Temp Pulse Resp BP Pulse Ox 36.6 C 75 18 124/74 H 97 09/29/18 07:08 09/29/18 08:07 09/29/18 08:07 09/29/18 07:29 09/29/18 08:07 Oxygen Flow Rate (L/min) 3 Oxygen Delivery Method Nasal Cannula Weight: 104.6 kg Body Mass Index (BMI) 37.2 Intake and Output for Last 24 Hours 09/27/18 09/28/18 09/29/18 23:59 23:59 23:59 Intake Total 200 / 200 100 / 100 Output Total 150 / 150 300 / 300 Balance 50 / 50 -200 / -200 General: Alert, No apparent distress HEENT: Atraumatic, Normocephalic Oral: Moist Mucosa, No Gingival or Mucosal Lesions/ Ulcerations Neck: No Nodes, Thyroid Normal Size and Texture Lungs: Clear to auscultation, Normal air movement, No rhonchi, No wheeze Cardiovascular: Regular rate, Regular Rhythm, Normal S1, Normal S2, No murmurs Abdomen: Bowel Sounds Present, Soft, Non Tender, Non-Distended, No Hepato-splenomegaly Extremities: No edema, No Calf Tenderness Psych/Mental Status: Normal Affect, Appropriate Laboratory Results 09/28/18 21:15: Urine Color Yellow, Urine Clarity Clear, Urine pH 5.0, Ur Specific [place] 1.020, Urine Protein 100 H, Urine Glucose (UA) Normal, Urine Ketones Negative, Urine Occult Blood Negative, Urine Nitrite Negative, Urine Bilirubin Negative, Urine Urobilinogen Normal, Ur Leukocyte Esterase 100 H, Urine RBC 0 SEEN, Urine WBC 5-10 SEEN, Ur Squamous Epith Cells 0-5 SEEN, Urine Bacteria RARE, Urine Mucus 0 SEEN 09/29/18 05:20: WBC 8.1, RBC 4.39, Hgb 12.5, Hct 39.0, MCV 88.8, MCH 28.5, MCHC 32.1, RDW 15.6 H, RDW Differential 49.8 H, Plt Count 219, MPV 10.9, Immature Gran % (Auto) 0.500, Neut % (Auto) 67.8, Lymph % (Auto) 21.1, [place] % (Auto) 8.7, Eos % (Auto) 1.5, Baso % (Auto) 0.4, Absolute Neuts (auto) 5.5, Absolute Lymphs (auto) 1.71, Total Counted Not Reportable 09/29/18 05:20: Sodium 145, Potassium 3.4 L, Chloride 105, Carbon Dioxide 31.0, Anion Gap 9, BUN 76 H, Creatinine 2.62 H, Estim Creat Clear Calc 15.76, Est GFR (MDRD) Af Amer 23 L, Est GFR (MDRD) Non-Af 19 L, BUN/Creatinine Ratio 29.0 H, Glucose 98, Calcium 8.0 L Current Medications Hydrocodone Bitart/Acetaminophen ([place] 5mg-325mg) 1 tablet PO TID PRN PRN PRN Reason: PAIN Al Hydroxide/Mg Hydroxide (Mylanta Ii) 30 ml PO Q6H PRN PRN PRN Reason: Gastric burning Albuterol/Ipratropium (Duoneb) 3 ml INHALATION Q4H PRN PRN Reason: sob Albuterol/Ipratropium (Duoneb) 3 ml INHALATION Q6HWA.RT [facility] Last Admin: 09/29/18 07:00 Dose: Not Given Amiodarone HCl (Cordarone) 200 mg PO BID [facility] Aspirin (Aspirin) 325 mg PO DAILY@0800 [facility] Last Admin: 09/29/18 09:01 Dose: 325 mg Bumetanide (Bumex) 1 mg PO BIDLX [facility] Cholecalciferol (Vitamin D) 2,000 unit PO DAILY [facility] Last Admin: 09/29/18 09:01 Dose: 2,000 unit Heparin Sodium (Porcine) (Heparin Na) 5,000 unit SC Q12 [facility] Last Admin: 09/29/18 09:01 Dose: 5,000 unit Hydralazine HCl (Apresoline) 25 mg PO TID [facility] Last Admin: 09/29/18 07:29 Dose: 25 mg Ceftriaxone Sodium (Rocephin) 1 gm in 50 mls @ 100 mls/hr IV Q24H [facility] Last Admin: 09/29/18 09:00 Dose: 100 mls/hr Magnesium Hydroxide (Milk Of Magnesia) 30 ml PO DAILY PRN PRN Reason: Constipation Nystatin (Mycostatin Powder) 1 applic TOPICAL TID KARL; Protocol Ondansetron HCl (Zofran) 4 mg IV Q8H PRN PRN PRN Reason: NAUSEA Zolpidem Tartrate (Ambien (Generic)) 5 mg PO QHS PRN PRN PRN Reason: INSOMNIA Medical Necessity - Tobacco Use Smoking Status: Former smoker Tobacco Use: Non-smoker Assessment/Plan All Active Problems (Last Updated 08/17/18 @ 13:56 by Antonette Brown MD) Near syncope (Acute) UTI (urinary tract infection) (Ruled-out) 1. Bradycardia Unclear if etiology of symptoms Improved Was discharged with Amiodarone 200 BID and Dilt 60 Q8 on the . Will resume amiodarone and continue to monitor, continue to hold dilt Patient to follow up with cardiology as outpt. If bradycardia resumes, or if develops VT again, then will consult cardiology during this admission. 2. CKD IV Solitary kidney Creatinine overall stable from earlier this month, but still up from August Nephrology on consult 3. HFpEF compensated at this time. Resumed back on Bumex, but daily Not a candidate for ACEi/ARB given CKD 4. VT As above, resume amiodarone 5. Near syncope Etiology unclear Reviewed UA from OSH and was unremarkable. UA here unremarkable for infection, too. DC abx Unclear if related to bradycardia v dehydration or other process (BPPV, etc.) 6. DVT proph: SQ heparin. Code Visit Inpatient E&M: 09815 Subs Hosp L2
--- NOTE | 2018-09-29 10:59 | PN_ITS ---
Patient Problems: Active and Suspected Problems (Last Updated 08/17/18 @ 13:56 by Antonette Brown MD) Near syncope (Acute) Subjective: Feels good. No further dizziness. Dizziness began yesterday. Vitals/I&O's: Vital Signs Temp Pulse Resp BP Pulse Ox 36.6 C 75 18 124/74 H 97 09/29/18 07:08 09/29/18 08:07 09/29/18 08:07 09/29/18 07:29 09/29/18 08:07 Oxygen Flow Rate (L/min) 3 Oxygen Delivery Method Nasal Cannula Weight: 104.6 kg Body Mass Index (BMI) 37.2 Intake and Output for Last 24 Hours 09/27/18 09/28/18 09/29/18 23:59 23:59 23:59 Intake Total 200 / 200 100 / 100 Output Total 150 / 150 300 / 300 Balance 50 / 50 -200 / -200 General: Alert, No apparent distress HEENT: Atraumatic, Normocephalic Oral: Moist Mucosa, No Gingival or Mucosal Lesions/ Ulcerations Neck: No Nodes, Thyroid Normal Size and Texture Lungs: Clear to auscultation, Normal air movement, No rhonchi, No wheeze Cardiovascular: Regular rate, Regular Rhythm, Normal S1, Normal S2, No murmurs Abdomen: Bowel Sounds Present, Soft, Non Tender, Non-Distended, No Hepato- splenomegaly Extremities: No edema, No Calf Tenderness Psych/Mental Status: Normal Affect, Appropriate Laboratory Results 09/28/18 21:15: Urine Color Yellow, Urine Clarity Clear, Urine pH 5.0, Ur Specific [place] 1.020, Urine Protein 100 H, Urine Glucose (UA) Normal, Urine Ketones Negative, Urine Occult Blood Negative, Urine Nitrite Negative, Urine Bilirubin Negative, Urine Urobilinogen Normal, Ur Leukocyte Esterase 100 H, Urine RBC 0 SEEN, Urine WBC 5-10 SEEN, Ur Squamous Epith Cells 0-5 SEEN, Urine Bacteria RARE, Urine Mucus 0 SEEN 09/29/18 05:20: WBC 8.1, RBC 4.39, Hgb 12.5, Hct 39.0, MCV 88.8, MCH 28.5, MCHC 32.1, RDW 15.6 H, RDW Differential 49.8 H, Plt Count 219, MPV 10.9, Immature Gran % (Auto) 0.500, Neut % (Auto) 67.8, Lymph % (Auto) 21.1, [place] % (Auto) 8.7, Eos % (Auto) 1.5, Baso % (Auto) 0.4, Absolute Neuts (auto) 5.5, Absolute Lymphs (auto) 1.71, Total Counted Not Reportable 09/29/18 05:20: Sodium 145, Potassium 3.4 L, Chloride 105, Carbon Dioxide 31.0, Anion Gap 9, BUN 76 H, Creatinine 2.62 H, Estim Creat Clear Calc 15.76, Est GFR (MDRD) Af Amer 23 L, Est GFR (MDRD) Non-Af 19 L, BUN/Creatinine Ratio 29.0 H, Glucose 98, Calcium 8.0 L Current Medications Hydrocodone Bitart/Acetaminophen ([place] 5mg-325mg) 1 tablet PO TID PRN PRN PRN Reason: PAIN Al Hydroxide/Mg Hydroxide (Mylanta Ii) 30 ml PO Q6H PRN PRN PRN Reason: Gastric burning Albuterol/Ipratropium (Duoneb) 3 ml INHALATION Q4H PRN PRN Reason: sob Albuterol/Ipratropium (Duoneb) 3 ml INHALATION Q6HWA.RT [facility] Last Admin: 09/29/18 07:00 Dose: Not Given Amiodarone HCl (Cordarone) 200 mg PO BID [facility] Aspirin (Aspirin) 325 mg PO DAILY@0800 [facility] Last Admin: 09/29/18 09:01 Dose: 325 mg Bumetanide (Bumex) 1 mg PO BIDLX [facility] Cholecalciferol (Vitamin D) 2,000 unit PO DAILY [facility] Last Admin: 09/29/18 09:01 Dose: 2,000 unit Heparin Sodium (Porcine) (Heparin Na) 5,000 unit SC Q12 [facility] Last Admin: 09/29/18 09:01 Dose: 5,000 unit Hydralazine HCl (Apresoline) 25 mg PO TID [facility] Last Admin: 09/29/18 07:29 Dose: 25 mg Ceftriaxone Sodium (Rocephin) 1 gm in 50 mls @ 100 mls/hr IV Q24H [facility] Last Admin: 09/29/18 09:00 Dose: 100 mls/hr Magnesium Hydroxide (Milk Of Magnesia) 30 ml PO DAILY PRN PRN Reason: Constipation Nystatin (Mycostatin Powder) 1 applic TOPICAL TID [facility]; Protocol Ondansetron HCl (Zofran) 4 mg IV Q8H PRN PRN PRN Reason: NAUSEA Zolpidem Tartrate (Ambien (Generic)) 5 mg PO QHS PRN PRN PRN Reason: INSOMNIA Medical Necessity - Tobacco Use Smoking Status: Former smoker Tobacco Use: Non-smoker Assessment/Plan All Active Problems (Last Updated 08/17/18 @ 13:56 by Antonette Brown MD) Near syncope (Acute) UTI (urinary tract infection) (Ruled-out) 1. Bradycardia Unclear if etiology of symptoms Improved Was discharged with Amiodarone 200 BID and Dilt 60 Q8 on the . Will resume amiodarone and continue to monitor, continue to hold dilt Patient to follow up with cardiology as outpt. If bradycardia resumes, or if develops VT again, then will consult cardiology during this admission. 2. CKD IV Solitary kidney Creatinine overall stable from earlier this month, but still up from August Nephrology on consult 3. HFpEF compensated at this time. Resumed back on Bumex, but daily Not a candidate for ACEi/ARB given CKD 4. VT As above, resume amiodarone 5. Near syncope Etiology unclear Reviewed UA from OSH and was unremarkable. UA here unremarkable for infection, too. DC abx Unclear if related to bradycardia v dehydration or other process (BPPV, etc.) 6. DVT proph: SQ heparin. Code Visit Inpatient E&M: 62957 Subs Hosp L2
[2018-09-29] MEDS: Nystatin Powder 15gm Bottle 1 APPLIC TOPICAL ×2 (11:06→21:44)
[2018-09-29] MEDS: Bumetanide 0.5 MG Tablet 1 MG PO ×2 (11:06→17:31)
[2018-09-29] MEDS: Amiodarone 200 MG Tablet PO ×2 (11:06→20:43)
--- NOTE | 2018-09-29 13:11 | CASEMGMT ---
Readmission chart review: See CM assessment from 08/17/19 completed by Heavenly CURRY. Pt was initially admitted 08/16/18-08/19/18 for acute on chronic resp failure and acute CHF. Pt declined needs at that time. Pt is already on home oxygen 4liters thru [employer]. Pt was then readmitted 09/15/18-09/23/18 for acute on chronic diastolic CHF, PEACE on CKD stage 3 and intermittent vtach. Pt was up in room without assist and declined HHC at that time. Nephro had stated that pt would be candidate for OP dialysis in the 'near future.' Pt was then admitted this time 09/28/18 for Afib, bradycardia and UTI. CM to follow for PT/OT evals, kidney function and any further discharge planning/needs. Naida CARR CM
[2018-09-30] VITALS (17 sets, daily range): BP systolic 134–154; BP diastolic 65–98; PULSE 68–109; RESP 16–18; TEMP 36.4–37.2; O2SAT 94–96
[2018-09-30] MEDS: HYDROcodone Bitartrate/Apap 5/325 Tablet PO (02:54)
[2018-09-30] MEDS: Nystatin Powder 15gm Bottle 1 APPLIC TOPICAL ×2 (05:20→20:58)
[2018-09-30] MEDS: hydrALAZINE 25 MG Tablet PO ×3 (05:20→20:58)
[2018-09-30 06:03] LABS: Anion Gap 8 (5-15); BUN 67 mg/dL (7-18); Calcium,Total 8.2 mg/dL (8.5-10.1); Chloride 108 mmol/L (98-107); Creatinine, Serum 2.48 mg/dL (0.55-1.02); EST Glomerular Filtration Rate 20 mL/min (>60); Est Glom Filt Rate - Afr Amer 24 mL/min (>60); Estimated Creatinine Clearance 16.65 ml/min; Glucose 95 mg/dL (74-106); Potassium 4.6 mmol/L (3.5-5.1); Sodium Level 145 mmol/L (136-145)
[2018-09-30] MEDS: Bumetanide 0.5 MG Tablet 1 MG PO ×3 (08:58→20:57)
[2018-09-30] MEDS: Aspirin 325 MG Tablet PO (08:58)
[2018-09-30] MEDS: Amiodarone 200 MG Tablet PO ×2 (08:59→20:57)
[2018-09-30] MEDS: Heparin Injection (Vial) 5,000 UNIT/ML VIAL 5000 UNIT SC ×2 (08:59→20:58)
--- NOTE | 2018-09-30 09:37 | PCM.PN.REN ---
Patient Problems: Active and Suspected Problems (Last Updated 08/17/18 @ 13:56 by Antonette Brown MD) Near syncope (Acute) Subjective: Pt is doing well. complaining of right foot pain. breathing is stable . on NC 2.5 l/m - Physical Exam General: Alert, Oriented x3 HEENT: Atraumatic Oral: Moist Mucosa Neck: Supple, No JVD Lungs: - - RLL crackles, decreased BS over the LLL Cardiovascular: Regular rate, Regular Rhythm, Normal S1, Normal S2 Abdomen: Bowel Sounds Present, Soft, Non Tender Extremities: No clubbing, No cyanosis, No edema Skin: No rashes Lymphatic: No Cervical, Supraclavicular, or Inguinal Adenopathy Neurological: Cranial nerves II-XII grossly intact, Neuro grossly intact Psych/Mental Status: Normal Affect Vital Signs Temp Pulse Resp BP Pulse Ox 97.5 F L 97 16 154/65 H 96 09/30/18 08:54 09/30/18 08:54 09/30/18 08:54 09/30/18 08:54 09/30/18 08:54 Oxygen Flow Rate (L/min) 3 Oxygen Delivery Method Nasal Cannula Weight: 104.6 kg Body Mass Index (BMI) 37.2 Intake and Output for Last 24 Hours 09/28/18 09/29/18 09/30/18 23:59 23:59 23:59 Intake Total 200 / 200 1080 / 1080 60 / 60 Output Total 150 / 150 1725 / 1725 400 / 400 Balance 50 / 50 -645 / -645 -340 / -340 Laboratory Tests Past 24 Hrs 09/30/18 05:00 Sodium 145 Potassium 4.6 Chloride 108 H Carbon Dioxide 29.0 Anion Gap 8 BUN 67 H Creatinine 2.48 H Estim Creat Clear Calc 16.65 Est GFR (MDRD) Af Amer 24 L Est GFR (MDRD) Non-Af 20 L BUN/Creatinine Ratio 27.0 H Glucose 95 Calcium 8.2 L Magnesium 2.0 Medical Necessity - Tobacco Use Smoking Status: Former smoker Tobacco Use: Non-smoker Assessment/Plan All Active Problems (Last Updated 08/17/18 @ 13:56 by Antonette Brown MD) Near syncope (Acute) UTI (urinary tract infection) (Ruled-out) 1-Acute kidney injury on chronic kidney disease. 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 Baseline creatinine seems around 1.6 mg/dL. Patient had history of recent PEACE from cardiorenal syndrome. Acute kidney injury for this admission is most probably prerenal from hemodynamic instability along with diuretics. Creatinine peaked at 2.9 mg a deciliter. Creatinine improved with IVF. Cr 2.4 mg/dL Bumex was resumed yesterday at 1 mg PO BID to avoid CHF exacerbation. Pt made only 1300 cc of urine in the last 24 hours. Lungs auscultation still reveals crackles. I will increase Bumex to 1 mg TID I will continue to monitor electrolytes and kidney function closely while on diuretics. Please keep mean arterial pressure more than 65. NSAIDs and nephrotoxic. 2-hypertension: Blood pressure is well controlled. I will continue the same dose of hydralazine. Will increase bumex dose was above for better diuresis 3-CHF with preserved ejection fraction: Will increase bumex dose as above 4-UTI: Antibiotics as per the primary service physician. Thank you for the consult. Renal team will continue to follow
--- NOTE | 2018-09-30 11:15 | PCM.PN.HOSP ---
Patient Problems: Active and Suspected Problems (Last Updated 08/17/18 @ 13:56 by Antonette Brown MD) Near syncope (Acute) Subjective: Feels better. Complains of a gout flare on the dorsum of her right foot along her MTPs. Wants to be released to walk independently. Vitals/I&O's: Vital Signs Temp Pulse Resp BP Pulse Ox 36.4 C L 97 16 154/65 H 96 09/30/18 08:54 09/30/18 08:54 09/30/18 08:54 09/30/18 08:54 09/30/18 08:54 Oxygen Flow Rate (L/min) 3 Oxygen Delivery Method Nasal Cannula Weight: 104.6 kg Body Mass Index (BMI) 37.2 Intake and Output for Last 24 Hours 09/28/18 09/29/18 09/30/18 23:59 23:59 23:59 Intake Total 200 / 200 1080 / 1080 60 / 60 Output Total 150 / 150 1725 / 1725 400 / 400 Balance 50 / 50 -645 / -645 -340 / -340 General: Alert, No apparent distress HEENT: Atraumatic, Normocephalic Oral: Moist Mucosa, No Gingival or Mucosal Lesions/ Ulcerations Neck: No Nodes, Thyroid Normal Size and Texture Lungs: Clear to auscultation, Normal air movement, No rhonchi, No wheeze Cardiovascular: Regular rate, Regular Rhythm, Normal S1, Normal S2 Abdomen: Bowel Sounds Present, Soft, Non Tender, Non-Distended Extremities: No edema, No Calf Tenderness Skin: No rashes, No breakdown Musculoskeletal: - - TTP along right MTPs. Psych/Mental Status: Normal Affect, Appropriate Microbiology Past 72 Hours 09/28/18 21:15 Urine, Clean Catch Urine Culture - Final Mixed Gram Positive Organisms Laboratory Results 09/30/18 05:00: Sodium 145, Potassium 4.6, Chloride 108 H, Carbon Dioxide 29.0, Anion Gap 8, BUN 67 H, Creatinine 2.48 H, Estim Creat Clear Calc 16.65, Est GFR (MDRD) Af Amer 24 L, Est GFR (MDRD) Non-Af 20 L, BUN/Creatinine Ratio 27.0 H, Glucose 95, Calcium 8.2 L, Magnesium 2.0 Current Medications Hydrocodone Bitart/Acetaminophen ([place] 5mg-325mg) 1 tablet PO TID PRN PRN PRN Reason: PAIN Last Admin: 09/30/18 02:54 Dose: 1 tablet Al Hydroxide/Mg Hydroxide (Mylanta Ii) 30 ml PO Q6H PRN PRN PRN Reason: Gastric burning Albuterol/Ipratropium (Duoneb) 3 ml INHALATION Q4H PRN PRN Reason: sob Albuterol/Ipratropium (Duoneb) 3 ml INHALATION Q6HWA.RT [facility] Last Admin: 09/30/18 07:15 Dose: Not Given Amiodarone HCl (Cordarone) 200 mg PO BID [facility] Last Admin: 09/30/18 08:59 Dose: 200 mg Aspirin (Aspirin) 325 mg PO DAILY@0800 [facility] Last Admin: 09/30/18 08:58 Dose: 325 mg Bumetanide (Bumex) 1 mg PO TID [facility] Cholecalciferol (Vitamin D) 2,000 unit PO DAILY [facility] Last Admin: 09/30/18 08:58 Dose: 2,000 unit Heparin Sodium (Porcine) (Heparin Na) 5,000 unit SC Q12 [facility] Last Admin: 09/30/18 08:59 Dose: 5,000 unit Hydralazine HCl (Apresoline) 25 mg PO TID [facility] Last Admin: 09/30/18 05:20 Dose: 25 mg Magnesium Hydroxide (Milk Of Magnesia) 30 ml PO DAILY PRN PRN Reason: Constipation Nystatin (Mycostatin Powder) 1 applic TOPICAL TID [facility]; Protocol Last Admin: 09/30/18 05:20 Dose: 1 applic Ondansetron HCl (Zofran) 4 mg IV Q8H PRN PRN PRN Reason: NAUSEA Zolpidem Tartrate (Ambien (Generic)) 5 mg PO QHS PRN PRN PRN Reason: INSOMNIA Medical Necessity - Tobacco Use Smoking Status: Former smoker Tobacco Use: Non-smoker Assessment/Plan All Active Problems (Last Updated 08/17/18 @ 13:56 by Antonette Brown MD) Near syncope (Acute) UTI (urinary tract infection) (Ruled-out) 1. Bradycardia Unclear if etiology of symptoms Improved Was discharged with Amiodarone 200 BID and Dilt 60 Q8 on the . Will resume amiodarone and continue to monitor, continue to hold dilt Patient to follow up with cardiology as outpt. If bradycardia resumes, or if develops VT again, then will consult cardiology during this admission. So far continues to be resolved even with the resumption of amiodarone. 2. CKD IV Solitary kidney Creatinine overall stable from earlier this month, but still up from August Nephrology on consult 3. HFpEF compensated at this time. Resumed back on Bumex, today, increased to TID Not a candidate for ACEi/ARB given CKD 4. VT As above, resume amiodarone 5. Near syncope Etiology unclear Reviewed UA from OSH and was unremarkable. UA here unremarkable for infection, too. DC abx Unclear if related to bradycardia v dehydration or other process (BPPV, etc.) 6. Acute Gout flare Will start prednisone taper (no colchicine given CKD) 7. DVT proph: SQ heparin. 8. Disposition: anticipate discharge in next 24-48 h Code Visit Inpatient E&M: 76431 Subs Hosp L2
--- NOTE | 2018-09-30 11:20 | PN_ITS ---
Patient Problems: Active and Suspected Problems (Last Updated 08/17/18 @ 13:56 by Antonette Brown MD) Near syncope (Acute) Subjective: Feels better. Complains of a gout flare on the dorsum of her right foot along her MTPs. Wants to be released to walk independently. Vitals/I&O's: Vital Signs Temp Pulse Resp BP Pulse Ox 36.4 C L 97 16 154/65 H 96 09/30/18 08:54 09/30/18 08:54 09/30/18 08:54 09/30/18 08:54 09/30/18 08:54 Oxygen Flow Rate (L/min) 3 Oxygen Delivery Method Nasal Cannula Weight: 104.6 kg Body Mass Index (BMI) 37.2 Intake and Output for Last 24 Hours 09/28/18 09/29/18 09/30/18 23:59 23:59 23:59 Intake Total 200 / 200 1080 / 1080 60 / 60 Output Total 150 / 150 1725 / 1725 400 / 400 Balance 50 / 50 -645 / -645 -340 / -340 General: Alert, No apparent distress HEENT: Atraumatic, Normocephalic Oral: Moist Mucosa, No Gingival or Mucosal Lesions/ Ulcerations Neck: No Nodes, Thyroid Normal Size and Texture Lungs: Clear to auscultation, Normal air movement, No rhonchi, No wheeze Cardiovascular: Regular rate, Regular Rhythm, Normal S1, Normal S2 Abdomen: Bowel Sounds Present, Soft, Non Tender, Non-Distended Extremities: No edema, No Calf Tenderness Skin: No rashes, No breakdown Musculoskeletal: - - TTP along right MTPs. Psych/Mental Status: Normal Affect, Appropriate Microbiology Past 72 Hours 09/28/18 21:15 Urine, Clean Catch Urine Culture - Final Mixed Gram Positive Organisms Laboratory Results 09/30/18 05:00: Sodium 145, Potassium 4.6, Chloride 108 H, Carbon Dioxide 29.0, Anion Gap 8, BUN 67 H, Creatinine 2.48 H, Estim Creat Clear Calc 16.65, Est GFR (MDRD) Af Amer 24 L, Est GFR (MDRD) Non-Af 20 L, BUN/Creatinine Ratio 27.0 H, Glucose 95, Calcium 8.2 L, Magnesium 2.0 Current Medications Hydrocodone Bitart/Acetaminophen ([place] 5mg-325mg) 1 tablet PO TID PRN PRN PRN Reason: PAIN Last Admin: 09/30/18 02:54 Dose: 1 tablet Al Hydroxide/Mg Hydroxide (Mylanta Ii) 30 ml PO Q6H PRN PRN PRN Reason: Gastric burning Albuterol/Ipratropium (Duoneb) 3 ml INHALATION Q4H PRN PRN Reason: sob Albuterol/Ipratropium (Duoneb) 3 ml INHALATION Q6HWA.RT [facility] Last Admin: 09/30/18 07:15 Dose: Not Given Amiodarone HCl (Cordarone) 200 mg PO BID [facility] Last Admin: 09/30/18 08:59 Dose: 200 mg Aspirin (Aspirin) 325 mg PO DAILY@0800 [facility] Last Admin: 09/30/18 08:58 Dose: 325 mg Bumetanide (Bumex) 1 mg PO TID [facility] Cholecalciferol (Vitamin D) 2,000 unit PO DAILY [facility] Last Admin: 09/30/18 08:58 Dose: 2,000 unit Heparin Sodium (Porcine) (Heparin Na) 5,000 unit SC Q12 [facility] Last Admin: 09/30/18 08:59 Dose: 5,000 unit Hydralazine HCl (Apresoline) 25 mg PO TID [facility] Last Admin: 09/30/18 05:20 Dose: 25 mg Magnesium Hydroxide (Milk Of Magnesia) 30 ml PO DAILY PRN PRN Reason: Constipation Nystatin (Mycostatin Powder) 1 applic TOPICAL TID [facility]; Protocol Last Admin: 09/30/18 05:20 Dose: 1 applic Ondansetron HCl (Zofran) 4 mg IV Q8H PRN PRN PRN Reason: NAUSEA Zolpidem Tartrate (Ambien (Generic)) 5 mg PO QHS PRN PRN PRN Reason: INSOMNIA Medical Necessity - Tobacco Use Smoking Status: Former smoker Tobacco Use: Non-smoker Assessment/Plan All Active Problems (Last Updated 08/17/18 @ 13:56 by Antonette Brown MD) Near syncope (Acute) UTI (urinary tract infection) (Ruled-out) 1. Bradycardia Unclear if etiology of symptoms Improved Was discharged with Amiodarone 200 BID and Dilt 60 Q8 on the . Will resume amiodarone and continue to monitor, continue to hold dilt Patient to follow up with cardiology as outpt. If bradycardia resumes, or if develops VT again, then will consult cardiology during this admission. So far continues to be resolved even with the resumption of amiodarone. 2. CKD IV Solitary kidney Creatinine overall stable from earlier this month, but still up from August Nephrology on consult 3. HFpEF compensated at this time. Resumed back on Bumex, today, increased to TID Not a candidate for ACEi/ARB given CKD 4. VT As above, resume amiodarone 5. Near syncope Etiology unclear Reviewed UA from OSH and was unremarkable. UA here unremarkable for infection, too. DC abx Unclear if related to bradycardia v dehydration or other process (BPPV, etc.) 6. Acute Gout flare Will start prednisone taper (no colchicine given CKD) 7. DVT proph: SQ heparin. 8. Disposition: anticipate discharge in next 24-48 h Code Visit Inpatient E&M: [id number] Subs Hosp L2
[2018-09-30] MEDS: predniSONE 20 MG Tablet 40 MG PO (13:00)
[2018-09-30] MEDS: Ipratropium/Albuterol Sulfate 3 ML AMPUL.NEB INHALATION ×2 (13:20→20:00)
[2018-10-01] VITALS (18 sets, daily range): BP systolic 122–157; BP diastolic 56–83; PULSE 74–122; RESP 16–18; TEMP 36.6–37; O2SAT 94–97
[2018-10-01] MEDS: hydrALAZINE 25 MG Tablet PO ×3 (05:18→21:30)
[2018-10-01] MEDS: Bumetanide 0.5 MG Tablet 1 MG PO ×3 (05:19→21:28)
[2018-10-01 06:23] LABS: Anion Gap 8 (5-15); BUN 64 mg/dL (7-18); BUN/Creat Ratio 28.7 RATIO (10-20); Calcium,Total 8.5 mg/dL (8.5-10.1); Chloride 109 mmol/L (98-107); Creatinine, Serum 2.23 mg/dL (0.55-1.02); EST Glomerular Filtration Rate 22 mL/min (>60); Est Glom Filt Rate - Afr Amer 27 mL/min (>60); Estimated Creatinine Clearance 18.52 ml/min; Glucose 123 mg/dL (74-106); Potassium 4.4 mmol/L (3.5-5.1); Sodium Level 142 mmol/L (136-145)
[2018-10-01] MEDS: Ipratropium/Albuterol Sulfate 3 ML AMPUL.NEB INHALATION ×3 (06:37→19:30)
[2018-10-01] MEDS: Aspirin 325 MG Tablet PO (09:32)
[2018-10-01] MEDS: predniSONE 20 MG Tablet 40 MG PO (09:33)
[2018-10-01] MEDS: Heparin Injection (Vial) 5,000 UNIT/ML VIAL 5000 UNIT SC ×2 (09:33→21:30)
[2018-10-01] MEDS: Amiodarone 200 MG Tablet PO (09:33)
--- NOTE | 2018-10-01 12:19 | PCM.PN.HOSP ---
Patient Problems: Active and Suspected Problems (Last Updated 08/17/18 @ 13:56 by Antonette Brown MD) Near syncope (Acute) Subjective: Feels better. Gout flare pain resolved. Vitals/I&O's: Vital Signs Temp Pulse Resp BP Pulse Ox 36.6 C 104 H 16 128/72 H 95 10/01/18 09:26 10/01/18 09:26 10/01/18 09:26 10/01/18 09:26 10/01/18 09:26 Oxygen Flow Rate (L/min) 2.5 Oxygen Delivery Method Nasal Cannula Weight: 104.6 kg Body Mass Index (BMI) 37.2 Intake and Output for Last 24 Hours 09/29/18 09/30/18 10/01/18 23:59 23:59 23:59 Intake Total 1080 / 1080 900 / 900 Output Total 1725 / 1725 2125 / 2125 675 / 675 Balance -645 / -645 -1225 / -1225 -675 / -675 General: Alert, No apparent distress HEENT: Atraumatic, Normocephalic Oral: Moist Mucosa, No Gingival or Mucosal Lesions/ Ulcerations Neck: No Nodes, Thyroid Normal Size and Texture Lungs: Clear to auscultation, Normal air movement, No rhonchi, No wheeze Cardiovascular: Regular rate, Regular Rhythm, Normal S1, Normal S2 Abdomen: Bowel Sounds Present, Soft, Non Tender, Non-Distended, No Hepato-splenomegaly Extremities: No edema, No Calf Tenderness Microbiology Past 72 Hours 09/28/18 21:15 Urine, Clean Catch Urine Culture - Final Mixed Gram Positive Organisms Laboratory Results 10/01/18 05:05: Sodium 142, Potassium 4.4, Chloride 109 H, Carbon Dioxide 25.0, Anion Gap 8, BUN 64 H, Creatinine 2.23 H, Estim Creat Clear Calc 18.52, Est GFR (MDRD) Af Amer 27 L, Est GFR (MDRD) Non-Af 22 L, BUN/Creatinine Ratio 28.7 H, Glucose 123 H, Calcium 8.5 Current Medications Hydrocodone Bitart/Acetaminophen ([place] 5mg-325mg) 1 tablet PO TID PRN PRN PRN Reason: PAIN Last Admin: 09/30/18 02:54 Dose: 1 tablet Al Hydroxide/Mg Hydroxide (Mylanta Ii) 30 ml PO Q6H PRN PRN PRN Reason: Gastric burning Albuterol/Ipratropium (Duoneb) 3 ml INHALATION Q4H PRN PRN Reason: sob Albuterol/Ipratropium (Duoneb) 3 ml INHALATION Q6HWA.RT [facility] Last Admin: 10/01/18 06:37 Dose: 3 ml Amiodarone HCl (Cordarone) 200 mg PO BID [facility] Last Admin: 10/01/18 09:33 Dose: 200 mg Aspirin (Aspirin) 325 mg PO DAILY@0800 [facility] Last Admin: 10/01/18 09:32 Dose: 325 mg Bumetanide (Bumex) 1 mg PO TID [facility] Last Admin: 10/01/18 05:19 Dose: 1 mg Cholecalciferol (Vitamin D) 2,000 unit PO DAILY [facility] Last Admin: 10/01/18 09:33 Dose: 2,000 unit Heparin Sodium (Porcine) (Heparin Na) 5,000 unit SC Q12 [facility] Last Admin: 10/01/18 09:33 Dose: 5,000 unit Hydralazine HCl (Apresoline) 25 mg PO TID [facility] Last Admin: 10/01/18 05:18 Dose: 25 mg Magnesium Hydroxide (Milk Of Magnesia) 30 ml PO DAILY PRN PRN Reason: Constipation Nystatin (Mycostatin Powder) 1 applic TOPICAL TID [facility]; Protocol Last Admin: 10/01/18 05:20 Dose: Not Given Ondansetron HCl (Zofran) 4 mg IV Q8H PRN PRN PRN Reason: NAUSEA Prednisone () 40 mg PO DAILY@0800 [facility] Last Admin: 10/01/18 09:33 Dose: 40 mg Zolpidem Tartrate (Ambien (Generic)) 5 mg PO QHS PRN PRN PRN Reason: INSOMNIA Medical Necessity - Tobacco Use Smoking Status: Former smoker Tobacco Use: Non-smoker Assessment/Plan All Active Problems (Last Updated 08/17/18 @ 13:56 by Antonette Brown MD) Near syncope (Acute) UTI (urinary tract infection) (Ruled-out) 1. Bradycardia Unclear if etiology of symptoms Improved Was discharged with Amiodarone 200 BID and Dilt 60 Q8 on the . Will resume amiodarone and continue to monitor, continue to hold dilt HR going up, with some episodes of NSVT. Consult cardiology. 2. CKD IV Solitary kidney Creatinine overall stable from earlier this month, but still up from August Nephrology on consult Creatinine slightly improved. 3. HFpEF compensated at this time. Resumed back on Bumex, today, increased to TID Not a candidate for ACEi/ARB given CKD 4. VT As above, resume amiodarone 5. Near syncope Etiology unclear Reviewed UA from OSH and was unremarkable. UA here unremarkable for infection, too. DC abx Unclear if related to bradycardia v dehydration or other process (BPPV, etc.) 6. Acute Gout flare Will start prednisone taper (no colchicine given CKD) 7. DVT proph: SQ heparin. 8. Disposition: anticipate discharge in next 24-48 h Code Visit Inpatient E&M: 78775 Subs Hosp L2
--- NOTE | 2018-10-01 12:25 | PCM.PN.REN ---
Patient Problems: Active and Suspected Problems (Last Updated 08/17/18 @ 13:56 by Antonette Brown MD) Near syncope (Acute) Subjective: Doing well. less SOB - Physical Exam General: Alert, Oriented x3 HEENT: Atraumatic Oral: Moist Mucosa Neck: Supple, No JVD Lungs: Clear to auscultation, Normal air movement Cardiovascular: Regular rate, Regular Rhythm, Normal S1 Abdomen: Bowel Sounds Present, Soft, Non Tender Extremities: No clubbing, No cyanosis, Edema - trace edema Musculoskeletal: No Tenderness to Palpation of Joints or Extremities Lymphatic: No Cervical, Supraclavicular, or Inguinal Adenopathy Neurological: Cranial nerves II-XII grossly intact, Neuro grossly intact Psych/Mental Status: Normal Affect Vital Signs Temp Pulse Resp BP Pulse Ox 97.9 F 104 H 16 128/72 H 95 10/01/18 09:26 10/01/18 09:26 10/01/18 09:26 10/01/18 09:26 10/01/18 09:26 Oxygen Flow Rate (L/min) 2.5 Oxygen Delivery Method Nasal Cannula Weight: 104.6 kg Body Mass Index (BMI) 37.2 Intake and Output for Last 24 Hours 09/29/18 09/30/18 10/01/18 23:59 23:59 23:59 Intake Total 1080 / 1080 900 / 900 Output Total 1725 / 1725 2125 / 2125 675 / 675 Balance -645 / -645 -1225 / -1225 -675 / -675 Microbiology Past 72 Hours 09/28/18 21:15 Urine Culture - Final Urine, Clean Catch Mixed Gram Positive Organisms Laboratory Tests Past 24 Hrs 10/01/18 05:05 Sodium 142 Potassium 4.4 Chloride 109 H Carbon Dioxide 25.0 Anion Gap 8 BUN 64 H Creatinine 2.23 H Estim Creat Clear Calc 18.52 Est GFR (MDRD) Af Amer 27 L Est GFR (MDRD) Non-Af 22 L BUN/Creatinine Ratio 28.7 H Glucose 123 H Calcium 8.5 Medical Necessity - Tobacco Use Smoking Status: Former smoker Tobacco Use: Non-smoker Assessment/Plan All Active Problems (Last Updated 08/17/18 @ 13:56 by Antonette Brown MD) Near syncope (Acute) UTI (urinary tract infection) (Ruled-out) 1-Acute kidney injury on chronic kidney disease. 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 Baseline creatinine seems around 1.6 mg/dL. Patient had history of recent PEACE from cardiorenal syndrome. Acute kidney injury for this admission is most probably prerenal from hemodynamic instability along with diuretics. Creatinine peaked at 2.9 mg a deciliter. Creatinine improved with IVF. Cr 2.2 mg/dL continue the same dose of Bumex. I will continue to monitor electrolytes and kidney function closely while on diuretics. Please keep mean arterial pressure more than 65. NSAIDs and nephrotoxic. 2-hypertension: Blood pressure is well controlled. I will continue the same dose of hydralazine. Will increase bumex dose was above for better diuresis 3-CHF with preserved ejection fraction: continue diuresis with bumex HR control as per the cardiology team Thank you for the consult. Renal team will continue to follow
--- NOTE | 2018-10-01 13:27 | CASEMGMT ---
This RN CM to room to discuss discharge plan/needs with pt at this time. Pt has been up walking the halls with family. Therapy does not recommend any further therapy at this time. Pt declines HHC or OP therapy at this time. This RN JOSE D did discuss CCN with pt at this time and pt appreciates the offer but declines at this time. Pt states that she will call PCP or this RN CM back if she feels she needs CCN set up in the future. Pt states that she takes her own vitals 4x/day and takes these to physician appt's. Pt states that she 'knows her body' and feels that she was just started on too many new meds at the same time. Pt states that she has family at home to help, if needed. Pt provided with this RN JOSE D's card at this time. Pt voices no further questions/concerns/needs at this time. SStaten BRUNO JEFFERY
--- NOTE | 2018-10-01 14:16 | PCM.CONS.C ---
Problem List (1) Paroxysmal ventricular tachycardia Status: Acute (2) Diastolic CHF, acute on chronic Status: Chronic (3) Pulmonary hypertension Status: Chronic Comment: PA pressure 57 in November 2017 (4) Hypertension Status: Chronic Qualifiers: (5) COPD (chronic obstructive pulmonary disease) Status: Chronic (6) Acute kidney injury superimposed on chronic kidney disease Status: Chronic (7) UTI (urinary tract infection) Status: Acute Reason for Consult Date of Consultation: 10/01/18 History of Present Illness: The patient is a 83 year old white female with a past medical history of underlying diastolic mediated CHF, pulmonary hypertension, essential hypertension, COPD, renal cell carcinoma status post nephrectomy, chronic renal insufficiency, who was referred for concerns of recurrent nonsustained ventricular tachycardia. She had recently been evaluated for a variety of medical issues including concerns of epceu-vw-vjnesai diastolic mediated CHF. Apparently during that hospitalization and her concerns of nonsustained ventricular tachycardia. Based upon previous medical records it appears that there was a conversation with Dr. Duffy that led to the initiation of additional medical management including amiodarone therapy. The patient was eventually released home. However she presented back based upon can sequence of not feeling well and alteration vital signs with bradycardia and what appeared to be vwjsj-kt-ldykfkz renal insufficiency. Since her admission to the hospital she has been undergoing medical management. She has been on telemetry monitoring. She has been in sinus rhythm. However she has been noted to Have episodes of underlying nonsustained wide complex tachycardia compatible with nonsustained VT. She has denied any symptoms associated with this. At the same time she states she has not had any acute chest discomfort. She believes her breathing is better overall. She states she has never had any significant lower extremity peripheral pitting edema. She has denied near syncope or syncope. She states she feels better but she is very concerned about her big 3 problems which include her heart, lungs, and kidneys. She states she is hesitant to go home again until her major medical issues are improved and she feels better. She wants to avoid returning to the hospital again if at all possible. [] Past Medical History Allergies/Adverse Reactions: Allergies clindamycin [From Cleocin] Allergy (Verified 09/15/18 10:54) Unknown oxycodone HCl [From OxyContin] Allergy (Verified 09/15/18 10:54) Anaphylaxis Sulfa (Sulfonamide Antibiotics) Allergy (Verified 09/15/18 10:54) Anaphylaxis vancomycin Allergy (Verified 09/15/18 10:54) Hives guaifenesin [From Entex LA] Adverse Reaction (Verified 09/15/18 10:54) Unknown phenylephrine [From Entex LA] Adverse Reaction (Verified 09/15/18 10:54) Unknown phenylpropanolamine [From Entex LA] Adverse Reaction (Verified 09/15/18 10:54) Unknown BETA BLOCKERS Adverse Reaction (Uncoded 09/15/18 10:54) Unknown Home Medications: Ambulatory Orders Medication Instructions Recorded Estrogens, Conjugated [Premarin] 0.3 mg PO QHS 04/04/15 MedroxyPROGESTERone [Provera] 5 mg PO QHS 05/18/15 Aspirin 325 mg PO DAILY@0800 04/12/18 Felodipine [Plendil] 10 mg PO DAILY 08/16/18 Umeclidinium Brm/Vilanterol Tr 1 puff INHALATION DAILY 08/16/18 [Anoro Ellipta 62.5-25 Mcg INH] Cholecalciferol (Vitamin D3) 2,000 unit PO DAILY 09/15/18 [Vitamin D3] Hydrocodone/Acetaminophen [[place]uff 1 tab PO TID PRN PRN 09/15/18 5-325 Tablet] hydrALAZINE [Apresoline] 25 mg PO TID 09/15/18 Amiodarone HCl [Cordarone] 200 mg PO BID #60 tablet 09/23/18 Bumetanide [Bumex] 2 mg PO BIDLX #60 tablet 09/23/18 Diltiazem [Cardizem] 60 mg PO Q8 #90 tablet 09/23/18 Past Medical History (Chronic Problems): Chronic Problems (Last Updated 08/17/18 @ 13:56 by Antonette Brown MD) Diastolic CHF, acute on chronic (Chronic) Acute kidney injury superimposed on chronic kidney disease (Chronic) COPD (chronic obstructive pulmonary disease) (Chronic) Chronic respiratory failure with hypoxia (Chronic) Chronic renal failure, stage 3 (moderate) (Chronic) 3-4 Hormone replacement therapy (Chronic) Pulmonary hypertension (Chronic) PA pressure 57 in November 2017 Stasis dermatitis (Chronic) Obesity, morbid, BMI 40.0-49.9 (Chronic) Gout (Chronic) Hypertension (Chronic) History of TIA (transient ischemic attack) (Chronic) 1998 History of kidney cancer (Chronic) S/P nephrectomy Surgical History: - - Tonsillectomy, appendectomy, cholecystectomy, bilateral shoulder rotator cuff repair, right elbow fracture with surgery with pin in place, bilateral total knee replacement. Renal cell carcinoma, Surgery for SBO, Single salpingectomy and oophorectomy for ectopic . - *Family History Paternal Family History: Family History (Last Reviewed 08/16/18 @ 18:39 by Violeta Dowling DO) Mother CAD (coronary artery disease) Father Colon cancer History Items: Cancer - Pancreatic CA, age 3838 years old., Diabetes, Heart Disease, Hypertension Maternal Family History: Family History (Last Reviewed 08/16/18 @ 18:39 by Violeta Dowling DO) Mother CAD (coronary artery disease) Father Colon cancer History Items: Heart Disease, Hypertension Smoking Status: Former smoker Tobacco Use: Non-smoker Review of Systems - Review of Systems General: Denies: Fever, Night Sweats, Fatigue Cardiovascular: Reports: Shortness of Breath. Denies: Chest Discomfort, Orthopnea, PND, Peripheral Edema, Palpitations, Lightheadedness, Dizziness, Near Syncope, Syncope Respiratory: Reports: Shortness of Breath. Denies: Cough, Sputum Production, Hemoptysis Gastrointestinal: Denies: Hematemesis, Hematochezia, Melena Genitourinary: Denies: Dysuria, Hematuria Skin: Denies: Rash Subjectve: This is an 83-year-old white female who appears to be resting comfortably at the moment in no acute distress. Objective: Vital Signs Temp Pulse Resp BP Pulse Ox 97.9 F 74 18 128/72 H 95 10/01/18 09:26 10/01/18 13:47 10/01/18 13:47 10/01/18 09:26 10/01/18 09:26 Oxygen Flow Rate (L/min) 2.5 Oxygen Delivery Method Nasal Cannula Weight: 230 lb 9.656 oz Body Mass Index (BMI) 37.2 Intake and Output for Last 24 Hours 09/29/18 09/30/18 10/01/18 23:59 23:59 23:59 Intake Total 1080 / 1080 900 / 900 120 / 120 Output Total 1725 / 1725 2125 / 2125 925 / 925 Balance -645 / -645 -1225 / -1225 -805 / -805 General: Awake, Alert, Oriented x 3, Cooperative, No Acute Distress HEENT: Atraumatic, Normocephalic, PERRL, EOMI, Sclera Non Icteric Oral: Moist Mucosa Neck: Supple, Good ROM, No JVD Lungs: Rales - Right Base Cardiovascular: Regular Rhythm, Premature Ectopic Beats, Normal S1, Normal S2 Vascular: No Carotid Bruits Abdomen: Bowel Sounds Present, Soft, Non Tender Extremities: No Cyanosis, No Clubbing, Trace RLE Edema, Trace LLE Edema Psych/Mental Status: Appropriate 10/01/18 05:05: Sodium 142, Potassium 4.4, Chloride 109 H, Carbon Dioxide 25.0, Anion Gap 8, BUN 64 H, Creatinine 2.23 H, Est GFR (MDRD) Af Amer 27 L, Est GFR (MDRD) Non-Af 22 L, BUN/Creatinine Ratio 28.7 H, Glucose 123 H, Calcium 8.5 Rhythm:Sinus rhythm; nonsustained wide complex tachycardia compatible of nonsustained ventricular tachycardia EKG:Sinus rhythm/sinus bradycardia ECHO:09/21/2018: Left ventricle normal with an LVEF 65%; mildly dilated right ventricle; mild biatrial enlargement; moderate mitral annular calcification; trivial MR/TR; mild focal aortic valve calcification; calcified aortic root; estimated RV systolic pressure of 72 mmHg compatible pulmonary hypertension; decreased diastolic compliance Stress test: 04/2018: Pharmacologic stress nuclear imaging study: Myocardial perfusion findings compatible with body motion during image acquisition and at rest implanted cardio perfusion changes which appear to improve and or normalized following stress appearing compatible with body motion artifact and/or shifting soft tissue attenuation/artifact but no myocardial perfusion changes considered diagnostic for associated stress induced myocardial ischemia with a gated LVEF of 57%. CXR:Preliminary evaluation: Question of increased pulmonary vascularity: Please see official report Assessment/Plan 1. Nonsustained ventricular tachycardia The patient presents with that finding of nonsustained ventricular tachycardia. Apparently this is not new for her. She has recently initiated medical management. This included a amiodarone therapy. She has undergone noninvasive evaluation recently and in the fall of 2017 as noted above. At the present time she appears without any acute symptoms. She will continue to be monitored. Ideally it would not be unreasonable to consider further evaluation of her coronary anatomy with diagnostic cardiac catheterization despite her previous noninvasive findings. However there is hesitancy and doing so based on her underlying solitary kidney with acute and chronic renal insufficiency. This at the present time she will need to continue medical management. As part of her evaluation care her case was, with her permission, discussed with [facility] electrophysiology-Dr. Christophe Aguayo - who status post discussing the case recommended at this time avoidance of, based on the patient's past history or jose antonio dysrhythmias, beta blockers or calcium channel antagonist that would lead to bradycardia, and/instead increase her amiodarone therapy up to a total of 800 mg a day and follow her cardiac rate and rhythm. If she has recurrent jose antonio dysrhythmia events than she may need to be considered for permanent pacemaker backup. If she has continued ventricular dysrhythmia events then she may need to be considered for further EP evaluation. He did not recommend immediate EP evaluation or immediate ICD implantation at this time especially noting her previous noninvasive test results. 2. Bxdio-ci-lkeukyj diastolic mediated CHF The patient will continue to be followed. She will continue medical management. Her medicines will need to be adjusted and around her vital signs and renal function, etc. to hopefully maintain a euvolemic state. 3. Pulmonary hypertension This may be secondary to a combination of the patient's cardiac condition but also her pulmonary condition with a history of COPD. She will need to continue medical management for this as best as possible. 4. Essential hypertension The patient's blood pressure can be monitored. She should continue medical therapy with avoidance of medications that would significantly negatively impact her cardiac rate as well as her renal function. 5. COPD The patient has a history of COPD. She will continue by Wound Care per internal medicine. 6. Renal insufficiency. The patient has ciong-[id number] renal insufficiency. Again there is hesitancy and performing any type of IV contrast related study based upon the concerns of IV contrast related neuropathy-especially noting the patient has only 1 kidney. 7. UTI The patient will continue evaluation care for underlying neurologic issues such as UTI per internal medicine. This note was generated using a voice recognition system and there may be incorrect words, spelling or punctuation that were not noted when reviewing the office note prior to saving.
[2018-10-01] MEDS: Nystatin Powder 15gm Bottle 1 APPLIC TOPICAL ×2 (15:13→21:30)
[2018-10-01] MEDS: Amiodarone 200 MG Tablet 400 MG PO (21:28)
[2018-10-02] VITALS (31 sets, daily range): BP systolic 108–150; BP diastolic 59–91; PULSE 83–143; RESP 14–27; TEMP 36.4–37; O2SAT 93–97
[2018-10-02] MEDS: Nystatin Powder 15gm Bottle 1 APPLIC TOPICAL ×3 (06:21→21:24)
[2018-10-02] MEDS: hydrALAZINE 25 MG Tablet PO ×3 (06:22→21:23)
[2018-10-02] MEDS: Bumetanide 0.5 MG Tablet 1 MG PO ×2 (06:22→19:25)
[2018-10-02] MEDS: Ipratropium/Albuterol Sulfate 3 ML AMPUL.NEB INHALATION ×3 (06:58→23:17)
[2018-10-02 07:21] LABS: Anion Gap 12 (5-15); BUN 73 mg/dL (7-18); Calcium,Total 8.6 mg/dL (8.5-10.1); Chloride 108 mmol/L (98-107); Creatinine, Serum 2.52 mg/dL (0.55-1.02); EST Glomerular Filtration Rate 20 mL/min (>60); Est Glom Filt Rate - Afr Amer 24 mL/min (>60); Estimated Creatinine Clearance 16.39 ml/min; Glucose 111 mg/dL (74-106); Potassium 4.1 mmol/L (3.5-5.1); Sodium Level 145 mmol/L (136-145)
[2018-10-02] MEDS: predniSONE 20 MG Tablet 40 MG PO (08:59)
[2018-10-02] MEDS: Amiodarone 200 MG Tablet 400 MG PO (08:59)
[2018-10-02] MEDS: Aspirin 325 MG Tablet PO (08:59)
[2018-10-02] MEDS: Heparin Injection (Vial) 5,000 UNIT/ML VIAL 5000 UNIT SC ×2 (10:02→21:25)
--- NOTE | 2018-10-02 11:32 | PCM.PN.HOSP ---
Patient Problems: Active and Suspected Problems (Last Updated 08/17/18 @ 13:56 by Antonette Brown MD) Paroxysmal ventricular tachycardia (Acute) Near syncope (Acute) UTI (urinary tract infection) (Acute) Subjective: Feels well. Slightly fatigued with ambulation. No chest pain. Objective: Had NSVT with walking today. Still tachycardic on telemetry. Vitals/I&O's: Vital Signs Temp Pulse Resp BP Pulse Ox 36.9 C 98 18 135/66 H 95 10/02/18 09:03 10/02/18 11:04 10/02/18 09:03 10/02/18 09:03 10/02/18 09:09 Oxygen Flow Rate (L/min) 2 Oxygen Delivery Method Nasal Cannula Weight: 104.6 kg Body Mass Index (BMI) 37.2 Intake and Output for Last 24 Hours 09/30/18 10/01/18 10/02/18 23:59 23:59 23:59 Intake Total 900 / 900 840 / 840 Output Total 2125 / 2125 1775 / 1775 800 / 800 Balance -1225 / -1225 -935 / -935 -800 / -800 General: Alert, No apparent distress HEENT: Atraumatic, Normocephalic Oral: Moist Mucosa, No Gingival or Mucosal Lesions/ Ulcerations Neck: No Nodes, Thyroid Normal Size and Texture Lungs: Clear to auscultation, No rhonchi, No wheeze, Diminished Cardiovascular: Irregular Rate, Tachycardic Abdomen: Bowel Sounds Present, Soft, Non Tender, Non-Distended, No Hepato-splenomegaly Extremities: No edema, No Calf Tenderness Skin: No rashes, No breakdown Psych/Mental Status: Normal Affect, Appropriate Microbiology Past 72 Hours 09/28/18 21:15 Urine, Clean Catch Urine Culture - Final Mixed Gram Positive Organisms Laboratory Results 10/02/18 05:34: Sodium 145, Potassium 4.1, Chloride 108 H, Carbon Dioxide 25.0, Anion Gap 12, BUN 73 H, Creatinine 2.52 H, Estim Creat Clear Calc 16.39, Est GFR (MDRD) Af Amer 24 L, Est GFR (MDRD) Non-Af 20 L, BUN/Creatinine Ratio 29.0 H, Glucose 111 H, Calcium 8.6 Current Medications Hydrocodone Bitart/Acetaminophen ([place]erson 5mg-325mg) 1 tablet PO TID PRN PRN PRN Reason: PAIN Last Admin: 09/30/18 02:54 Dose: 1 tablet Al Hydroxide/Mg Hydroxide (Mylanta Ii) 30 ml PO Q6H PRN PRN PRN Reason: Gastric burning Albuterol/Ipratropium (Duoneb) 3 ml INHALATION Q4H PRN PRN Reason: sob Albuterol/Ipratropium (Duoneb) 3 ml INHALATION Q6HWA.RT [facility] Last Admin: 10/02/18 06:58 Dose: 3 ml Amiodarone HCl (Cordarone) 400 mg PO BID [facility] Last Admin: 10/02/18 08:59 Dose: 400 mg Aspirin (Aspirin) 325 mg PO DAILY@0800 [facility] Last Admin: 10/02/18 08:59 Dose: 325 mg Bumetanide (Bumex) 1 mg PO BIDLX [facility] Cholecalciferol (Vitamin D) 2,000 unit PO DAILY [facility] Last Admin: 10/02/18 09:00 Dose: 2,000 unit Heparin Sodium (Porcine) (Heparin Na) 5,000 unit SC Q12 [facility] Last Admin: 10/02/18 10:02 Dose: 5,000 unit Hydralazine HCl (Apresoline) 25 mg PO TID [facility] Last Admin: 10/02/18 06:22 Dose: 25 mg Isosorbide Dinitrate (Isordil) 10 mg PO TID [facility] Magnesium Hydroxide (Milk Of Magnesia) 30 ml PO DAILY PRN PRN Reason: Constipation Nystatin (Mycostatin Powder) 1 applic TOPICAL TID [facility]; Protocol Last Admin: 10/02/18 06:21 Dose: 1 applic Ondansetron HCl (Zofran) 4 mg IV Q8H PRN PRN PRN Reason: NAUSEA Prednisone () 40 mg PO DAILY@0800 [facility] Last Admin: 10/02/18 08:59 Dose: 40 mg Zolpidem Tartrate (Ambien (Generic)) 5 mg PO QHS PRN PRN PRN Reason: INSOMNIA Medical Necessity - Tobacco Use Smoking Status: Former smoker Tobacco Use: Non-smoker Assessment/Plan All Active Problems (Last Updated 08/17/18 @ 13:56 by Antonette Brown MD) Paroxysmal ventricular tachycardia (Acute) Near syncope (Acute) UTI (urinary tract infection) (Acute) 1. Bradycardia Unclear if etiology of symptoms Resolved Was discharged with Amiodarone 200 BID and Dilt 60 Q8 on the . Will resume amiodarone and continue to monitor, continue to hold dilt HR going up, with some episodes of NSVT. 2. NSVT tachycardic Amio increased to 400 BID on 10/01 Dr. Mirza spoke with Dr. Tyson at [facility] who did not feel the patient required an immediate EP eval 3. CKD IV Solitary kidney Creatinine slightly up today Nephrology on consult 4. HFpEF compensated at this time. EF 65% from echo on 09.21.2018 Bumex dropped back to BID today given slight worsening of creatinine. Not a candidate for ACEi/ARB given CKD Complicated by pulmonary HTN (RVSP 72mm HG) 5. Pulmonary HTN Group 2 given CHF Treat the underlying cause Outpt PSG to eval for VERNA 6. Near syncope Etiology unclear Reviewed UA from OSH and was unremarkable. UA here unremarkable for infection, too. DC abx Unclear if related to bradycardia v dehydration or other process (BPPV, etc.) 7. Acute Gout flare Resolved since 10/01 Prednisone taper 8. DVT proph: SQ heparin. 9. Disposition: on hold given the patient's fluctuating heart rate. Code Visit Inpatient E&M: 77099 Subs Hosp L2
--- NOTE | 2018-10-02 11:41 | PN_ITS ---
Patient Problems: Active and Suspected Problems (Last Updated 08/17/18 @ 13:56 by Antonette Brown MD) Paroxysmal ventricular tachycardia (Acute) Near syncope (Acute) UTI (urinary tract infection) (Acute) Subjective: Feels well. Slightly fatigued with ambulation. No chest pain. Objective: Had NSVT with walking today. Still tachycardic on telemetry. Vitals/I&O's: Vital Signs Temp Pulse Resp BP Pulse Ox 36.9 C 98 18 135/66 H 95 10/02/18 09:03 10/02/18 11:04 10/02/18 09:03 10/02/18 09:03 10/02/18 09:09 Oxygen Flow Rate (L/min) 2 Oxygen Delivery Method Nasal Cannula Weight: 104.6 kg Body Mass Index (BMI) 37.2 Intake and Output for Last 24 Hours 09/30/18 10/01/18 10/02/18 23:59 23:59 23:59 Intake Total 900 / 900 840 / 840 Output Total 2125 / 2125 1775 / 1775 800 / 800 Balance -1225 / -1225 -935 / -935 -800 / -800 General: Alert, No apparent distress HEENT: Atraumatic, Normocephalic Oral: Moist Mucosa, No Gingival or Mucosal Lesions/ Ulcerations Neck: No Nodes, Thyroid Normal Size and Texture Lungs: Clear to auscultation, No rhonchi, No wheeze, Diminished Cardiovascular: Irregular Rate, Tachycardic Abdomen: Bowel Sounds Present, Soft, Non Tender, Non-Distended, No Hepato- splenomegaly Extremities: No edema, No Calf Tenderness Skin: No rashes, No breakdown Psych/Mental Status: Normal Affect, Appropriate Microbiology Past 72 Hours 09/28/18 21:15 Urine, Clean Catch Urine Culture - Final Mixed Gram Positive Organisms Laboratory Results 10/02/18 05:34: Sodium 145, Potassium 4.1, Chloride 108 H, Carbon Dioxide 25.0, Anion Gap 12, BUN 73 H, Creatinine 2.52 H, Estim Creat Clear Calc 16.39, Est GFR (MDRD) Af Amer 24 L, Est GFR (MDRD) Non-Af 20 L, BUN/Creatinine Ratio 29.0 H, Glucose 111 H, Calcium 8.6 Current Medications Hydrocodone Bitart/Acetaminophen ([place] 5mg-325mg) 1 tablet PO TID PRN PRN PRN Reason: PAIN Last Admin: 09/30/18 02:54 Dose: 1 tablet Al Hydroxide/Mg Hydroxide (Mylanta Ii) 30 ml PO Q6H PRN PRN PRN Reason: Gastric burning Albuterol/Ipratropium (Duoneb) 3 ml INHALATION Q4H PRN PRN Reason: sob Albuterol/Ipratropium (Duoneb) 3 ml INHALATION Q6HWA.RT [facility] Last Admin: 10/02/18 06:58 Dose: 3 ml Amiodarone HCl (Cordarone) 400 mg PO BID [facility] Last Admin: 10/02/18 08:59 Dose: 400 mg Aspirin (Aspirin) 325 mg PO DAILY@0800 [facility] Last Admin: 10/02/18 08:59 Dose: 325 mg Bumetanide (Bumex) 1 mg PO BIDLX [facility] Cholecalciferol (Vitamin D) 2,000 unit PO DAILY [facility] Last Admin: 10/02/18 09:00 Dose: 2,000 unit Heparin Sodium (Porcine) (Heparin Na) 5,000 unit SC Q12 [facility] Last Admin: 10/02/18 10:02 Dose: 5,000 unit Hydralazine HCl (Apresoline) 25 mg PO TID [facility] Last Admin: 10/02/18 06:22 Dose: 25 mg Isosorbide Dinitrate (Isordil) 10 mg PO TID [facility] Magnesium Hydroxide (Milk Of Magnesia) 30 ml PO DAILY PRN PRN Reason: Constipation Nystatin (Mycostatin Powder) 1 applic TOPICAL TID [facility]; Protocol Last Admin: 10/02/18 06:21 Dose: 1 applic Ondansetron HCl (Zofran) 4 mg IV Q8H PRN PRN PRN Reason: NAUSEA Prednisone () 40 mg PO DAILY@0800 [facility] Last Admin: 10/02/18 08:59 Dose: 40 mg Zolpidem Tartrate (Ambien (Generic)) 5 mg PO QHS PRN PRN PRN Reason: INSOMNIA Medical Necessity - Tobacco Use Smoking Status: Former smoker Tobacco Use: Non-smoker Assessment/Plan All Active Problems (Last Updated 08/17/18 @ 13:56 by Antonette Brown MD) Paroxysmal ventricular tachycardia (Acute) Near syncope (Acute) UTI (urinary tract infection) (Acute) 1. Bradycardia Unclear if etiology of symptoms Resolved Was discharged with Amiodarone 200 BID and Dilt 60 Q8 on the . Will resume amiodarone and continue to monitor, continue to hold dilt HR going up, with some episodes of NSVT. 2. NSVT tachycardic Amio increased to 400 BID on 10/01 Dr. Mirza spoke with Dr. Tyson at [facility] who did not feel the patient required an immediate EP eval 3. CKD IV Solitary kidney Creatinine slightly up today Nephrology on consult 4. HFpEF compensated at this time. EF 65% from echo on 09.21.2018 Bumex dropped back to BID today given slight worsening of creatinine. Not a candidate for ACEi/ARB given CKD Complicated by pulmonary HTN (RVSP 72mm HG) 5. Pulmonary HTN Group 2 given CHF Treat the underlying cause Outpt PSG to eval for VERNA 6. Near syncope Etiology unclear Reviewed UA from OSH and was unremarkable. UA here unremarkable for infection, too. DC abx Unclear if related to bradycardia v dehydration or other process (BPPV, etc.) 7. Acute Gout flare Resolved since 10/01 Prednisone taper 8. DVT proph: SQ heparin. 9. Disposition: on hold given the patient's fluctuating heart rate. Code Visit Inpatient E&M: 69161 Subs Hosp L2
--- NOTE | 2018-10-02 13:15 | PN.CARD_ITS ---
Subjectve: The patient denies any ongoing chest pain. She denies any acute change in her respiratory status. She cannot sense her underlying ectopy and the sense of palpitations or rapid heart rate. There has been no report of near syncope or syncope. She has been up and ambulating. Objective: Vital Signs Temp Pulse Resp BP Pulse Ox 98.5 F 98 18 135/66 H 95 10/02/18 09:03 10/02/18 11:04 10/02/18 09:03 10/02/18 09:03 10/02/18 09:09 Oxygen Flow Rate (L/min) 2 Oxygen Delivery Method Nasal Cannula Weight: 230 lb 9.656 oz Body Mass Index (BMI) 37.2 Intake and Output for Last 24 Hours 09/30/18 10/01/18 10/02/18 23:59 23:59 23:59 Intake Total 900 / 900 840 / 840 Output Total 2125 / 2125 1775 / 1775 800 / 800 Balance -1225 / -1225 -935 / -935 -800 / -800 General: Awake, Alert, Oriented x 3, Cooperative, No Acute Distress, Obese HEENT: Atraumatic, Normocephalic, PERRL, EOMI, Sclera Non Icteric Neck: No JVD Lungs: Inspiratory Wheezes - Frank Cardiovascular: Regular Rhythm, Premature Ectopic Beats, Normal S1, Normal S2 Abdomen: Bowel Sounds Present, Soft, Non Tender Psych/Mental Status: Appropriate 10/02/18 05:34: Sodium 145, Potassium 4.1, Chloride 108 H, Carbon Dioxide 25.0, Anion Gap 12, BUN 73 H, Creatinine 2.52 H, Est GFR (MDRD) Af Amer 24 L, Est GFR (MDRD) Non-Af 20 L, BUN/Creatinine Ratio 29.0 H, Glucose 111 H, Calcium 8.6 Rhythm:Sinus rhythm; repetitive episodes of nonsustained wide complex tachycardia concerning for nonsustained ventricular tachycardia Medical Necessity - Tobacco Use Smoking Status: Former smoker Tobacco Use: Non-smoker Assessment/Plan 1. Nonsustained ventricular tachycardia The patient presents with that finding of nonsustained ventricular tachycardia. At the present time her amiodarone dose was increased. This was changed to 400 mg b.i.d. She received the first dose yesterday evening and a second dose this morning. She continues with evidence of nonsustained wide complex tachycardia compatible with nonsustained ventricular tachycardia. She appears to be without any obvious symptoms or hemodynamic compromise thus far. At the present time she will continue to be monitored while her dose is increa sed. If her ventricular dysrhythmias does not appear to come under better control than her case may need to be discussed once again with electrophysiology for further recommendations regarding evaluation and care. 2. [id number] diastolic mediated CHF The patient will continue to be followed. She will continue medical management. As she appears to have been symptomatically improved and noting her creatinine levels increasing her medications will be adjusted. Her diuretic therapy will be changed from t.i.d. to b.i.d. Her renal function will be followed. 3. Pulmonary hypertension This may be secondary to a combination of the patient's cardiac condition but also her pulmonary condition with a history of COPD. She will need to continue medical management for this as best as possible. 4. Essential hypertension The patient's blood pressure can be monitored. She should continue medical therapy with avoidance of medications that would significantly negatively impact her cardiac rate as well as her renal function. 5. COPD The patient has a history of COPD. She will continue by Wound Care per internal medicine. 6. Renal insufficiency. The patient has [id number] renal insufficiency. Again there is hesitancy and performing any type of IV contrast related study based upon the concerns of IV contrast related neuropathy-especially noting the patient has only 1 kidney. As her creatinine level has increased her diuretic therapy will be decreased. Her clinical status and renal function will need to be followed. 7. UTI The patient will continue evaluation care for underlying neurologic issues such as UTI per internal medicine. This note was generated using a voice recognition system and there may be incorrect words, spelling or punctuation that were not noted when reviewing the office note prior to saving.
[2018-10-02] MEDS: Isosorbide DN 10 MG Tablet PO ×2 (13:49→21:25)
--- NOTE | 2018-10-02 14:24 | NURSING ---
Student nurse charting reviewed.
--- NOTE | 2018-10-02 15:11 | NURSING ---
This RN assuming care.
--- NOTE | 2018-10-02 16:04 | PCM.PN.REN ---
Patient Problems: Active and Suspected Problems (Last Updated 08/17/18 @ 13:56 by Antonette Brown MD) Paroxysmal ventricular tachycardia (Acute) Near syncope (Acute) UTI (urinary tract infection) (Acute) Subjective: Pt is doing well. breathing is stable. No nausea No vomiting - Physical Exam General: Alert, Oriented x3 HEENT: Atraumatic Oral: Moist Mucosa Neck: Supple, No JVD, Negative Carotid Bruits Lungs: - - decrease BS over both lung bases Cardiovascular: Regular rate, Regular Rhythm, Normal S1, Normal S2 Abdomen: Bowel Sounds Present, Soft, Non Tender Extremities: No clubbing, No cyanosis, Edema - trace edema of LE Skin: No rashes Musculoskeletal: No Tenderness to Palpation of Joints or Extremities Lymphatic: No Cervical, Supraclavicular, or Inguinal Adenopathy Neurological: Cranial nerves II-XII grossly intact, Neuro grossly intact Psych/Mental Status: Normal Affect Vital Signs Temp Pulse Resp BP Pulse Ox 97.7 F L 91 20 H 119/69 95 10/02/18 15:54 10/02/18 15:54 10/02/18 15:54 10/02/18 15:54 10/02/18 15:54 Oxygen Flow Rate (L/min) 2.5 Oxygen Delivery Method Nasal Cannula Weight: 104.6 kg Body Mass Index (BMI) 37.2 Intake and Output for Last 24 Hours 09/30/18 10/01/18 10/02/18 23:59 23:59 23:59 Intake Total 900 / 900 840 / 840 480 / 480 Output Total 2125 / 2125 1775 / 1775 1200 / 1200 Balance -1225 / -1225 -935 / -935 -720 / -720 Microbiology Past 72 Hours 09/28/18 21:15 Urine Culture - Final Urine, Clean Catch Mixed Gram Positive Organisms Laboratory Tests Past 24 Hrs 10/02/18 05:34 Sodium 145 Potassium 4.1 Chloride 108 H Carbon Dioxide 25.0 Anion Gap 12 BUN 73 H Creatinine 2.52 H Estim Creat Clear Calc 16.39 Est GFR (MDRD) Af Amer 24 L Est GFR (MDRD) Non-Af 20 L BUN/Creatinine Ratio 29.0 H Glucose 111 H Calcium 8.6 Medical Necessity - Tobacco Use Smoking Status: Former smoker Tobacco Use: Non-smoker Assessment/Plan All Active Problems (Last Updated 08/17/18 @ 13:56 by Antonette Brown MD) Paroxysmal ventricular tachycardia (Acute) Near syncope (Acute) UTI (urinary tract infection) (Acute) 1-Acute kidney injury on chronic kidney disease. 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 Baseline creatinine seems around 1.6 mg/dL. Patient had history of recent [place] from cardiorenal syndrome. Acute kidney injury for this admission is most probably prerenal from hemodynamic instability along with diuretics. Creatinine peaked at 2.9 mg a deciliter. Creatinine improved with holding bumex and IVF. Bumex had ti be started again . Current dose 1 mg TID. Cr increased in the last 24 hour . last trend 2.2->2.5 mg/dL I agree with decreasing the dose to 1 mg PO TID. We will have to accept higher baseline Cr to help controlling the volume status I will continue to monitor volume stattus,electrolytes and kidney function closely while on diuretics. Please keep mean arterial pressure more than 65. NSAIDs and nephrotoxic. Check renal function in am 2-hypertension: Blood pressure is well controlled. I will continue the same dose of hydralazine. Will increase bumex dose was above for better diuresis 3-CHF with preserved ejection fraction: continue diuresis with bumex HR control as per the cardiology team Thank you for the consult. Renal team will continue to follow
[2018-10-03] VITALS (38 sets, daily range): BP systolic 108–150; BP diastolic 56–81; PULSE 77–121; RESP 13–26; TEMP 36.4–36.9; O2SAT 24–98
[2018-10-03] MEDS: Nystatin Powder 15gm Bottle 1 APPLIC TOPICAL ×3 (05:39→21:29)
[2018-10-03] MEDS: Isosorbide DN 10 MG Tablet PO ×3 (05:41→21:28)
[2018-10-03] MEDS: hydrALAZINE 25 MG Tablet PO ×3 (05:41→21:29)
[2018-10-03 06:16] LABS: Anion Gap 13 (5-15); BUN 80 mg/dL (7-18); BUN/Creat Ratio 29.6 RATIO (10-20); Calcium,Total 8.5 mg/dL (8.5-10.1); Chloride 109 mmol/L (98-107); EST Glomerular Filtration Rate 18 mL/min (>60); Est Glom Filt Rate - Afr Amer 22 mL/min (>60); Glucose 102 mg/dL (74-106); Potassium 4.1 mmol/L (3.5-5.1); Sodium Level 144 mmol/L (136-145)
[2018-10-03] MEDS: Ipratropium/Albuterol Sulfate 3 ML AMPUL.NEB INHALATION ×3 (06:43→19:22)
[2018-10-03] MEDS: Aspirin 325 MG Tablet PO (07:57)
[2018-10-03] MEDS: predniSONE 20 MG Tablet 30 MG PO (07:57)
[2018-10-03] MEDS: Bumetanide 0.5 MG Tablet 1 MG PO (09:04)
[2018-10-03] MEDS: Heparin Injection (Vial) 5,000 UNIT/ML VIAL 5000 UNIT SC ×2 (09:05→21:29)
--- NOTE | 2018-10-03 11:55 | PCM.PN.CARD ---
Subjectve: The patient states that overall she is feeling better. However she still appears to get short of breath and dyspneic with activity. She has continued to have evidence of underlying ventricular ectopy. However this appears to be decreased since she has been placed on IV amiodarone in comparison to her oral amiodarone therapy. Objective: Vital Signs Temp Pulse Resp BP Pulse Ox 98.3 F 95 21 H 142/68 H 97 10/03/18 11:00 10/03/18 11:32 10/03/18 11:00 10/03/18 11:00 10/03/18 11:00 Oxygen Flow Rate (L/min) 2.5 Oxygen Delivery Method Nasal Cannula Weight: 230 lb 9.656 oz Body Mass Index (BMI) 37.2 Intake and Output for Last 24 Hours 10/01/18 10/02/18 10/03/18 23:59 23:59 23:59 Intake Total 840 / 840 820.2 / 820.2 180 / 180 Output Total 1775 / 1775 1650 / 1650 600 / 600 Balance -935 / -935 -829.8 / -829.8 -420 / -420 General: Awake, Alert, Oriented x 3, Cooperative, Obese HEENT: Atraumatic, Normocephalic, PERRL, EOMI, Sclera Non Icteric Oral: Moist Mucosa Neck: Supple, Good ROM, No JVD Lungs: Clear to auscultation Cardiovascular: Regular Rhythm, Premature Ectopic Beats, Normal S1, Normal S2 Abdomen: Bowel Sounds Present, Soft, Non Tender Extremities: Trace RLE Edema, Trace LLE Edema Psych/Mental Status: Appropriate 10/03/18 04:55: Sodium 144, Potassium 4.1, Chloride 109 H, Carbon Dioxide 22.0, Anion Gap 13, BUN 80 H, Creatinine 2.70 H, Est GFR (MDRD) Af Amer 22 L, Est GFR (MDRD) Non-Af 18 L, BUN/Creatinine Ratio 29.6 H, Glucose 102, Calcium 8.5 Rhythm:Sinus rhythm; PVCs; nonsustained wide complex tachycardia compatible nonsustained VT Medical Necessity - Tobacco Use Smoking Status: Former smoker Tobacco Use: Non-smoker Assessment/Plan 1. Nonsustained ventricular tachycardia The patient presents with that finding of nonsustained ventricular tachycardia. At the present time her amiodarone dose was increased. This was changed to 400 mg b.i.d. However, despite increasing her oral amiodarone dose she continued with frequent episodes of non sustained wide complex tachycardia compatible with nonsustained ventricular tachycardia. Thus she was placed on IV amiodarone. Since doing so it appears her frequency of her nonsustained wide complex tachycardia has diminished. As noted before, her case may need to be discussed once again with electrophysiology for consideration on how to proceed with her cardiac dysrhythmia, medications, further evaluation, etc. 2. Cuipy-pd-jvlgvcc diastolic mediated CHF The patient will continue to be followed. She will continue medical management. She appears to be symptomatically improved, however, her creatinine level continues to increase. Thus she appears to be symptomatically improved, based on her increasing creatinine level, her diuretic therapy will be decreased once again. She states she has been told by nephrology that she may need future hemodialysis. 3. Pulmonary hypertension This may be secondary to a combination of the patient's cardiac condition but also her pulmonary condition with a history of COPD. She will need to continue medical management for this as best as possible. 4. Essential hypertension The patient's blood pressure can be monitored. She should continue medical therapy with avoidance of medications that would significantly negatively impact her cardiac rate as well as her renal function. 5. COPD The patient has a history of COPD. She will continue by Wound Care per internal medicine. 6. Renal insufficiency. The patient has zoodn-ig-terrtkj renal insufficiency. Again there is hesitancy and performing any type of IV contrast related study based upon the concerns of IV contrast related neuropathy-especially noting the patient has only 1 kidney. As her creatinine level has increased her diuretic therapy will be decreased. Her clinical status and renal function will need to be followed. Again she states she has been told by nephrology that she may need future hemodialysis. 7. UTI The patient will continue evaluation care for underlying neurologic issues such as UTI per internal medicine. This note was generated using a voice recognition system and there may be incorrect words, spelling or punctuation that were not noted when reviewing the office note prior to saving.
--- NOTE | 2018-10-03 12:21 | PN_ITS ---
Patient Problems: Active and Suspected Problems (Last Updated 08/17/18 @ 13:56 by Antonette Brown MD) Paroxysmal ventricular tachycardia (Acute) Near syncope (Acute) UTI (urinary tract infection) (Acute) Subjective: No new complaints. Vitals/I&O's: Vital Signs Temp Pulse Resp BP Pulse Ox 36.8 C 91 21 H 141/56 H 94 10/03/18 12:00 10/03/18 12:00 10/03/18 12:00 10/03/18 12:00 10/03/18 12:00 Oxygen Flow Rate (L/min) 2.5 Oxygen Delivery Method Nasal Cannula Weight: 104.6 kg Body Mass Index (BMI) 37.2 Intake and Output for Last 24 Hours 10/01/18 10/02/18 10/03/18 23:59 23:59 23:59 Intake Total 840 / 840 820.2 / 820.2 579 / 579 Output Total 1775 / 1775 1650 / 1650 900 / 900 Balance -935 / -935 -829.8 / -829.8 -321 / -321 General: Alert, No apparent distress HEENT: Atraumatic, Normocephalic Oral: Moist Mucosa, No Gingival or Mucosal Lesions/ Ulcerations Neck: No Nodes, Thyroid Normal Size and Texture Lungs: Clear to auscultation, Normal air movement, No rhonchi, No wheeze Cardiovascular: Regular rate, Regular Rhythm, Normal S1, Normal S2, No murmurs Abdomen: Bowel Sounds Present, Soft, Non Tender, Non-Distended Extremities: No edema, No Calf Tenderness Skin: No rashes, No breakdown Psych/Mental Status: Normal Affect, Appropriate Microbiology Past 72 Hours 09/28/18 21:15 Urine, Clean Catch Urine Culture - Final Mixed Gram Positive Organisms Laboratory Results 10/03/18 04:55: Sodium 144, Potassium 4.1, Chloride 109 H, Carbon Dioxide 22.0, Anion Gap 13, BUN 80 H, Creatinine 2.70 H, Estim Creat Clear Calc 15.30, Est GFR (MDRD) Af Amer 22 L, Est GFR (MDRD) Non-Af 18 L, BUN/Creatinine Ratio 29.6 H, Glucose 102, Calcium 8.5 Current Medications Hydrocodone Bitart/Acetaminophen ([place] 5mg-325mg) 1 tablet PO TID PRN PRN PRN Reason: PAIN Last Admin: 09/30/18 02:54 Dose: 1 tablet Al Hydroxide/Mg Hydroxide (Mylanta Ii) 30 ml PO Q6H PRN PRN PRN Reason: Gastric burning Albuterol/Ipratropium (Duoneb) 3 ml INHALATION Q4H PRN PRN Reason: sob Albuterol/Ipratropium (Duoneb) 3 ml INHALATION Q6HWA.RT [facility] Last Admin: 10/03/18 06:43 Dose: 3 ml Aspirin (Aspirin) 325 mg PO DAILY@0800 [facility] Last Admin: 10/03/18 07:57 Dose: 325 mg Bumetanide (Bumex) 1 mg PO DAILY [facility] Cholecalciferol (Vitamin D) 2,000 unit PO DAILY [facility] Last Admin: 10/03/18 09:04 Dose: 2,000 unit Heparin Sodium (Porcine) (Heparin Na) 5,000 unit SC Q12 [facility] Last Admin: 10/03/18 09:05 Dose: 5,000 unit Hydralazine HCl (Apresoline) 25 mg PO TID [facility] Last Admin: 10/03/18 05:41 Dose: 25 mg Amiodarone HCl 360 mg/ (Dextrose) 200 mls @ 16.67 mls/hr CONT INF .Q12H1M [facility] Stop: 10/03/18 14:44 Last Admin: 10/02/18 22:18 Dose: 16.67 mls/hr Isosorbide Dinitrate (Isordil) 10 mg PO TID [facility] Last Admin: 10/03/18 05:41 Dose: 10 mg Magnesium Hydroxide (Milk Of Magnesia) 30 ml PO DAILY PRN PRN Reason: Constipation Nystatin (Mycostatin Powder) 1 applic TOPICAL TID [facility]; Protocol Last Admin: 10/03/18 05:39 Dose: 1 applic Ondansetron HCl (Zofran) 4 mg IV Q8H PRN PRN PRN Reason: NAUSEA Prednisone () 20 mg PO X1 ONE Stop: 10/04/18 08:01 Prednisone () 10 mg PO X1 ONE Stop: 10/05/18 08:01 Zolpidem Tartrate (Ambien (Generic)) 5 mg PO QHS PRN PRN PRN Reason: INSOMNIA Medical Necessity - Tobacco Use Smoking Status: Former smoker Tobacco Use: Non-smoker Assessment/Plan All Active Problems (Last Updated 08/17/18 @ 13:56 by Antonette Brown MD) Paroxysmal ventricular tachycardia (Acute) Near syncope (Acute) UTI (urinary tract infection) (Acute) 1. Bradycardia Unclear if etiology of symptoms Resolved Was discharged with Amiodarone 200 BID and Dilt 60 Q8 on the . Will resume amiodarone and continue to monitor, continue to hold dilt HR going up, with some episodes of NSVT. 2. NSVT Changed from Amio 400 BID to Amio gtt by cardiology. Earlier, Dr. Mirza spoke with Dr. Tyson at [facility] who did not feel the patient required an immediate EP eval 3. CKD IV Solitary kidney Creatinine slightly up today, again Nephrology on consult 4. HFpEF compensated at this time. EF 65% from echo on 09.21.2018 Bumex dropped back to BID today given slight worsening of creatinine. Not a candidate for ACEi/ARB given CKD Complicated by pulmonary HTN (RVSP 72mm HG) 5. Pulmonary HTN Group 2 given CHF Treat the underlying cause Outpt PSG to eval for VERNA 6. Near syncope Etiology unclear Reviewed UA from OSH and was unremarkable. UA here unremarkable for infection, too. DC abx Unclear if related to bradycardia v dehydration or other process (BPPV, etc.) 7. Acute Gout flare Resolved since 10/01 Prednisone taper 8. DVT proph: SQ heparin. 9. Disposition: on hold given the patient's fluctuating heart rate. Home v tertiary facility Code Visit Inpatient E&M: 55402 Subs Hosp L2
[2018-10-04] VITALS (40 sets, daily range): BP systolic 116–162; BP diastolic 51–119; PULSE 78–112; RESP 15–29; TEMP 36.5–37.2; O2SAT 94–100
[2018-10-04] MEDS: hydrALAZINE 25 MG Tablet PO ×3 (05:57→21:13)
[2018-10-04] MEDS: Isosorbide DN 10 MG Tablet PO ×3 (05:57→21:13)
[2018-10-04] MEDS: Nystatin Powder 15gm Bottle 1 APPLIC TOPICAL ×3 (05:58→21:13)
[2018-10-04 06:55] LABS: Anion Gap 11 (5-15); BUN 77 mg/dL (7-18); BUN/Creat Ratio 31.6 RATIO (10-20); Calcium,Total 8.4 mg/dL (8.5-10.1); Chloride 110 mmol/L (98-107); Creatinine, Serum 2.44 mg/dL (0.55-1.02); EST Glomerular Filtration Rate 20 mL/min (>60); Est Glom Filt Rate - Afr Amer 24 mL/min (>60); Estimated Creatinine Clearance 16.93 ml/min; Glucose 82 mg/dL (74-106); Sodium Level 143 mmol/L (136-145)
--- NOTE | 2018-10-04 07:34 | PCM.PN.CARD ---
Subjectve: Patient seen and evaluated. Appears to be doing better this morning. Objective: Vital Signs Temp Pulse Resp BP Pulse Ox 98.0 F 78 20 H 129/65 H 94 10/04/18 04:00 10/04/18 07:14 10/04/18 07:00 10/04/18 07:00 10/04/18 07:00 Oxygen Flow Rate (L/min) 2.5 Oxygen Delivery Method Nasal Cannula Weight: 238 lb 12.17 oz Body Mass Index (BMI) 37.2 Intake and Output for Last 24 Hours 10/02/18 10/03/18 10/04/18 23:59 23:59 23:59 Intake Total 820.2 / 820.2 1092.2 / 1092.2 101 / 101 Output Total 1650 / 1650 1750 / 1750 400 / 400 Balance -829.8 / -829.8 -657.8 / -657.8 -299 / -299 General: Awake, Alert, Oriented x 3 HEENT: PERRL, EOMI, Sclera Non Icteric Neck: Supple, Good ROM, No Lymph Node Enlargement Lungs: Clear to auscultation Cardiovascular: Regular Rhythm, Normal S1, Normal S2, No Murmurs, No Rubs, No Gallops Vascular: No Carotid Bruits, Normal Femoral Pulses, Normal Radial Pulses, Normal Dorsalis Pedal Pulse, Normal Posterior Tibial Pulses Abdomen: Bowel Sounds Present, Soft, Non Tender, No HSM, No Organomegaly Extremities: No Cyanosis, No Clubbing, No edema Musculoskeletal: No Erythema Skin: No Rashes Lymphatic: No Lymph Node Enlargement Neurological: No Focal Motor or Sensory Deficit Psych/Mental Status: Appropriate 10/04/18 06:15: Sodium 143, Potassium 4.0, Chloride 110 H, Carbon Dioxide 22.0, Anion Gap 11, BUN 77 H, Creatinine 2.44 H, Est GFR (MDRD) Af Amer 24 L, Est GFR (MDRD) Non-Af 20 L, BUN/Creatinine Ratio 31.6 H, Glucose 82, Calcium 8.4 L Rhythm: EKG: ECHO: Stress Test: Cardiac Cath: PCI: CT Surgery: Holter monitor: EPS: PPM: CXR: Chest CT Scan: Medical Necessity - Tobacco Use Smoking Status: Former smoker Tobacco Use: Non-smoker Assessment/Plan 1. Nonsustained ventricular tachycardia The patient presents with that finding of nonsustained ventricular tachycardia. Apparently this is not new for her. The plan for now will be to continue with the oral amiodarone at a dose of 400 mg twice a day for another day or so and see how she does. Her telemetry monitoring does show occasional short runs of nonsustained ventricular tachyarrhythmia which asymptomatic. 2. Wvsna-so-cbskndo diastolic mediated CHF The patient will continue to be followed. She will continue medical management. Her medicines will need to be adjusted and around her vital signs and renal function, etc. to hopefully maintain a euvolemic state. 3. Pulmonary hypertension This may be secondary to a combination of the patient's cardiac condition but also her pulmonary condition with a history of COPD. She will need to continue medical management for this as best as possible. 4. Essential hypertension The patient's blood pressure can be monitored. She should continue medical therapy with avoidance of medications that would significantly negatively impact her cardiac rate as well as her renal function. 5. COPD The patient has a history of COPD. She will continue by Wound Care per internal medicine. 6. Renal insufficiency. This appears to be fairly stable at this time. Thank you for allowing me to participate in the care of your patient. Please don't hesitate to call if any issues arise
[2018-10-04] MEDS: Heparin Injection (Vial) 5,000 UNIT/ML VIAL 5000 UNIT SC ×2 (08:59→21:12)
[2018-10-04] MEDS: Bumetanide 0.5 MG Tablet 1 MG PO (09:00)
[2018-10-04] MEDS: predniSONE 20 MG Tablet PO (09:01)
[2018-10-04] MEDS: Aspirin 81 MG TAB.CHEW PO (09:04)
--- NOTE | 2018-10-04 09:54 | PCM.PN.HOSP ---
Patient Problems: Active and Suspected Problems (Last Updated 08/17/18 @ 13:56 by Antonette Brown MD) Paroxysmal ventricular tachycardia (Acute) Near syncope (Acute) UTI (urinary tract infection) (Acute) Subjective: Patient notes feeling well with no acute events overnight per self and per nursing report. She is currently maintained on amiodarone drip and oral regimen with rate currently 100-110 continued in atrial fibrillation. She denies any chest discomfort, dyspnea or palpitations. Patient states that she is chronically on oxygen and she feels as though she is a respiratory baseline. Discussed cardiology possible increase of Lasix regimen given underlying renal disease pending discussions with cardiology to which patient is amenable. Patient denies fevers, chills, nausea, emesis, abdominal pain, chest pain or dyspnea. Objective: Physical Examination: General: awake, alert, oriented x 3 and cooperative, seated upright in bedside chair, in no apparent distress. Skin: normal color, turgor, no icterus, cyanosis. HEENT: AT/NC, EOMI, PERRLA, MMM. Lungs: CTA bilaterally, moderate effort, mild decrease BL bases, no rales, ronchi or wheezing. Heart: Irregular irregular; no gallop, rub audible. Abdomen: soft, obese, NTTP, ND, normal BS. Extremities: no cyanosis, clubbing, BL ankle to distal lion edema. Neurological: patient awake, alert, oriented x 3; cognitive function intact; pupils equally reactive to light and accomodation; cranial nerves II-XII grossly normal, moving all 4 extremities, no focal deficits, strength moderate globally decreased. Psychiatric: affect appears normal, no acute evidence of depressive or anxiety feelings. Vitals/I&O's: Vital Signs Temp Pulse Resp BP Pulse Ox 97.7 F L 84 26 H 145/63 H 97 10/04/18 09:16 10/04/18 09:16 10/04/18 09:16 10/04/18 09:16 10/04/18 09:16 Oxygen Flow Rate (L/min) 2.5 Oxygen Delivery Method Nasal Cannula Weight: 238 lb 12.17 oz Body Mass Index (BMI) 37.2 Intake and Output for Last 24 Hours 10/02/18 10/03/18 10/04/18 23:59 23:59 23:59 Intake Total 820.2 / 820.2 1092.2 / 1092.2 101 / 101 Output Total 1650 / 1650 1750 / 1750 400 / 400 Balance -829.8 / -829.8 -657.8 / -657.8 -299 / -299 Laboratory Results 10/04/18 06:15: Sodium 143, Potassium 4.0, Chloride 110 H, Carbon Dioxide 22.0, Anion Gap 11, BUN 77 H, Creatinine 2.44 H, Estim Creat Clear Calc 16.93, Est GFR (MDRD) Af Amer 24 L, Est GFR (MDRD) Non-Af 20 L, BUN/Creatinine Ratio 31.6 H, Glucose 82, Calcium 8.4 L Current Medications Hydrocodone Bitart/Acetaminophen ([place] 5mg-325mg) 1 tablet PO TID PRN PRN PRN Reason: PAIN Last Admin: 09/30/18 02:54 Dose: 1 tablet Al Hydroxide/Mg Hydroxide (Mylanta Ii) 30 ml PO Q6H PRN PRN PRN Reason: Gastric burning Albuterol/Ipratropium (Duoneb) 3 ml INHALATION Q4H PRN PRN Reason: sob Albuterol/Ipratropium (Duoneb) 3 ml INHALATION Q6HWA.RT [facility] Last Admin: 10/04/18 07:44 Dose: Not Given Aspirin (Aspirin, Baby) 81 mg PO DAILY@0800 [facility] Last Admin: 10/04/18 09:04 Dose: 81 mg Bumetanide (Bumex) 1 mg PO DAILY [facility] Last Admin: 10/04/18 09:00 Dose: 1 mg Cholecalciferol (Vitamin D) 2,000 unit PO DAILY [facility] Last Admin: 10/04/18 08:59 Dose: 2,000 unit Heparin Sodium (Porcine) (Heparin Na) 5,000 unit SC Q12 [facility] Last Admin: 10/04/18 08:59 Dose: 5,000 unit Hydralazine HCl (Apresoline) 25 mg PO TID [facility] Last Admin: 10/04/18 05:57 Dose: 25 mg Amiodarone HCl 360 mg/ (Dextrose) 200 mls @ 16.67 mls/hr CONT INF .Q12H [facility] Last Admin: 10/04/18 01:43 Dose: 16.67 mls/hr Isosorbide Dinitrate (Isordil) 10 mg PO TID [facility] Last Admin: 10/04/18 05:57 Dose: 10 mg Magnesium Hydroxide (Milk Of Magnesia) 30 ml PO DAILY PRN PRN Reason: Constipation Nystatin (Mycostatin Powder) 1 applic TOPICAL TID [facility]; Protocol Last Admin: 10/04/18 05:58 Dose: 1 applic Ondansetron HCl (Zofran) 4 mg IV Q8H PRN PRN PRN Reason: NAUSEA Prednisone () 20 mg PO X1 ONE Stop: 10/04/18 08:01 Last Admin: 10/04/18 09:01 Dose: 20 mg Prednisone () 10 mg PO X1 ONE Stop: 10/05/18 08:01 Zolpidem Tartrate (Ambien (Generic)) 5 mg PO QHS PRN PRN PRN Reason: INSOMNIA Medical Necessity - Tobacco Use Smoking Status: Former smoker Tobacco Use: Non-smoker Assessment/Plan All Active Problems (Last Updated 08/17/18 @ 13:56 by Antonette Brown MD) Paroxysmal ventricular tachycardia (Acute) Near syncope (Acute) UTI (urinary tract infection) (Acute) The patient is an 83 y/o F w/ PMHx: Chronic COPD w/ Chronic Hypoxic Respiratory Failure, Obesity, HTN, HLD, Chronic Diastolic CHF, CKD stage IV, History of Renal CA s/p unilateral nephrectomy, History of TIA, History of NSVT, Gout who presents to the [facility] ED on 09/28/18 with near syncopal event w/ dizziness, lightheadedness w/ recent 09/23/18 discharge for CHF exacerbation, intermittent SVT, PEACE in addition to Gout flare w/ noted bradycardia upon ED presentation. (1) Bradycardia w/ Near Syncopal Event: Recent admission w/ discharge on amiodarone 200 mg BID in addition to diltiazem 60 mg po q 6 hours on 09/23/18, notable bradycardia following, noted concurrent bursts NSVT with amiodarone drip w/ oral transition at higher dosing, discontinuation of diltizem, maintained on telemetry, Cardiology consulted and following. (2) NSVT, Acute on Chronic: Telemetry with short bursts NSVT, asymptomatic, maintained on IV amiodarone now transitioning to oral amiodarone per Cardiology discretion w/ 400 mg BID, Cardiology discussions w/ [facility] EP [employer] w/ deferral of transfer, mag 2.0, recent normal TSH 3.05, maintain on telemetry, attempting oral transition as noted. (3) Chronic Diastolic CHF, Recent Prior Admission Exacerbation: CXR obtained in the ED w/ congestion, improved from prior however. Maintained on cardiac telemetry, prior admission w/ diuresis, regimen decreased given improvement and concurrent PEACE on CKD stage IV, monitor I/Os, continue medical therapy w/ asa, not on statin, not on BB w/ bradycardia as noted, not on ACEI secondary to CKD. 09/21/18 ECHO w/ EF 65% w/ no regional wall motion abnormalities, mildly dilated RV with normal systolic function, LA mildly enlarged. RA mildly enlarged. Trivial MR with moderate mitral annular calcification with extension into posterior mitral valve leaflet. Trivial TR with RVSP 72 mmHg. (4) Acute kidney injury on CKD stage IV, Recent admission w/ Diuresis for CHF exacerbation: Secondary to recent diuresis w/ acute CHF exacerbation. Admission BUN/Cr 67/2.48, increased to 2.70, prior baseline creatinine noted to be 1.6-1.8, 10/04/18 Cr 2.44, improving, nephrology consulted, following. Will continue to closely monitor as potential need to increase diuretic regimen. (5) Recent Acute Gout Flare: Resolved since 10/01/18, maintained on prednisone taper with noted completion 10/05/18. (6) Acute UTI, Ruled OUT: UA upon admission w/ concern for UTI initially, rocephin administered; however, UCx not marked, abx discontinued. 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 (8) Pulmonary HTN: Complicates presentation, RVSP 72 mm Hgb, continue treatment CHF as noted. (9) Hypertension: Continue home regimen including Bumex decreased from prior given AK I, hydralazine, isosorbide, PRN hydralazine. (10) Obesity: Weight loss and lifestyle changes encouraged. (11) DVT Prophylaxis: SCDs, heparin. Code Visit Inpatient E&M: 31208 Subs Hosp L3
--- NOTE | 2018-10-04 10:13 | PN_ITS ---
Patient Problems: Active and Suspected Problems (Last Updated 08/17/18 @ 13:56 by Antonette Brown MD) Paroxysmal ventricular tachycardia (Acute) Near syncope (Acute) UTI (urinary tract infection) (Acute) Subjective: Patient notes feeling well with no acute events overnight per self and per nursing report. She is currently maintained on amiodarone drip and oral regimen with rate currently 100-110 continued in atrial fibrillation. She denies any chest discomfort, dyspnea or palpitations. Patient states that she is chronic ally on oxygen and she feels as though she is a respiratory baseline. Discussed cardiology possible increase of Lasix regimen given underlying renal disease pending discussions with cardiology to which patient is amenable. Patient denies fevers, chills, nausea, emesis, abdominal pain, chest pain or dyspnea. Objective: Physical Examination: General: awake, alert, oriented x 3 and cooperative, seated upright in bedside chair, in no apparent distress. Skin: normal color, turgor, no icterus, cyanosis. HEENT: AT/NC, EOMI, PERRLA, MMM. Lungs: CTA bilaterally, moderate effort, mild decrease BL bases, no rales, ronchi or wheezing. Heart: Irregular irregular; no gallop, rub audible. Abdomen: soft, obese, NTTP, ND, normal BS. Extremities: no cyanosis, clubbing, BL ankle to distal lion edema. Neurological: patient awake, alert, oriented x 3; cognitive function intact; pupils equally reactive to light and accomodation; cranial nerves II-XII grossly normal, moving all 4 extremities, no focal deficits, strength moderate globally decreased. Psychiatric: affect appears normal, no acute evidence of depressive or anxiety feelings. Vitals/I&O's: Vital Signs Temp Pulse Resp BP Pulse Ox 97.7 F L 84 26 H 145/63 H 97 10/04/18 09:16 10/04/18 09:16 10/04/18 09:16 10/04/18 09:16 10/04/18 09:16 Oxygen Flow Rate (L/min) 2.5 Oxygen Delivery Method Nasal Cannula Weight: 238 lb 12.17 oz Body Mass Index (BMI) 37.2 Intake and Output for Last 24 Hours 10/02/18 10/03/18 10/04/18 23:59 23:59 23:59 Intake Total 820.2 / 820.2 1092.2 / 1092.2 101 / 101 Output Total 1650 / 1650 1750 / 1750 400 / 400 Balance -829.8 / -829.8 -657.8 / -657.8 -299 / -299 Laboratory Results 10/04/18 06:15: Sodium 143, Potassium 4.0, Chloride 110 H, Carbon Dioxide 22.0, Anion Gap 11, BUN 77 H, Creatinine 2.44 H, Estim Creat Clear Calc 16.93, Est GFR (MDRD) Af Amer 24 L, Est GFR (MDRD) Non-Af 20 L, BUN/Creatinine Ratio 31.6 H, Glucose 82, Calcium 8.4 L Current Medications Hydrocodone Bitart/Acetaminophen ([place] 5mg-325mg) 1 tablet PO TID PRN PRN PRN Reason: PAIN Last Admin: 09/30/18 02:54 Dose: 1 tablet Al Hydroxide/Mg Hydroxide (Mylanta Ii) 30 ml PO Q6H PRN PRN PRN Reason: Gastric burning Albuterol/Ipratropium (Duoneb) 3 ml INHALATION Q4H PRN PRN Reason: sob Albuterol/Ipratropium (Duoneb) 3 ml INHALATION Q6HWA.RT [facility] Last Admin: 10/04/18 07:44 Dose: Not Given Aspirin (Aspirin, Baby) 81 mg PO DAILY@0800 [facility] Last Admin: 10/04/18 09:04 Dose: 81 mg Bumetanide (Bumex) 1 mg PO DAILY [facility] Last Admin: 10/04/18 09:00 Dose: 1 mg Cholecalciferol (Vitamin D) 2,000 unit PO DAILY [facility] Last Admin: 10/04/18 08:59 Dose: 2,000 unit Heparin Sodium (Porcine) (Heparin Na) 5,000 unit SC Q12 [facility] Last Admin: 10/04/18 08:59 Dose: 5,000 unit Hydralazine HCl (Apresoline) 25 mg PO TID [facility] Last Admin: 10/04/18 05:57 Dose: 25 mg Amiodarone HCl 360 mg/ (Dextrose) 200 mls @ 16.67 mls/hr CONT INF .Q12H [facility] Last Admin: 10/04/18 01:43 Dose: 16.67 mls/hr Isosorbide Dinitrate (Isordil) 10 mg PO TID [facility] Last Admin: 10/04/18 05:57 Dose: 10 mg Magnesium Hydroxide (Milk Of Magnesia) 30 ml PO DAILY PRN PRN Reason: Constipation Nystatin (Mycostatin Powder) 1 applic TOPICAL TID [facility]; Protocol Last Admin: 10/04/18 05:58 Dose: 1 applic Ondansetron HCl (Zofran) 4 mg IV Q8H PRN PRN PRN Reason: NAUSEA Prednisone () 20 mg PO X1 ONE Stop: 10/04/18 08:01 Last Admin: 10/04/18 09:01 Dose: 20 mg Prednisone () 10 mg PO X1 ONE Stop: 10/05/18 08:01 Zolpidem Tartrate (Ambien (Generic)) 5 mg PO QHS PRN PRN PRN Reason: INSOMNIA Medical Necessity - Tobacco Use Smoking Status: Former smoker Tobacco Use: Non-smoker Assessment/Plan All Active Problems (Last Updated 08/17/18 @ 13:56 by Antonette Brown MD) Paroxysmal ventricular tachycardia (Acute) Near syncope (Acute) UTI (urinary tract infection) (Acute) The patient is an 83 y/o F w/ PMHx: Chronic COPD w/ Chronic Hypoxic Respiratory Failure, Obesity, HTN, HLD, Chronic Diastolic CHF, CKD stage IV, History of Renal CA s/p unilateral nephrectomy, History of TIA, History of NSVT, Gout who presents to the [facility] ED on 09/28/18 with near syncopal event w/ dizziness, lightheadedness w/ recent 09/23/18 discharge for CHF exacerbation, intermittent SVT, PEACE in addition to Gout flare w/ noted bradycardia upon ED presentation. (1) Bradycardia w/ Near Syncopal Event: Recent admission w/ discharge on amiodarone 200 mg BID in addition to diltiazem 60 mg po q 6 hours on 09/23/18, notable bradycardia following, noted concurrent bursts NSVT with amiodarone drip w/ oral transition at higher dosing, discontinuation of diltizem, maintained on telemetry, Cardiology consulted and following. (2) NSVT, Acute on Chronic: Telemetry with short bursts NSVT, asymptomatic, maintained on IV amiodarone now transitioning to oral amiodarone per Cardiology discretion w/ 400 mg BID, Cardiology discussions w/ [facility] EP [employer]umper Straight[employer] w/ deferral of transfer, mag 2.0, recent normal TSH 3.05, maintain on telemetry, attempting oral transition as noted. (3) Chronic Diastolic CHF, Recent Prior Admission Exacerbation: CXR obtained in the ED w/ congestion, improved from prior however. Maintained on cardiac telemetry, prior admission w/ diuresis, regimen decreased given improvement and concurrent PEACE on CKD stage IV, monitor I/Os, continue medical therapy w/ asa, not on statin, not on BB w/ bradycardia as noted, not on ACEI secondary to CKD. 09/21/18 ECHO w/ EF 65% w/ no regional wall motion abnormalities, mildly dilated RV with normal systolic function, LA mildly enlarged. RA mildly enlarged. Triv ial MR with moderate mitral annular calcification with extension into posterior mitral valve leaflet. Trivial TR with RVSP 72 mmHg. (4) Acute kidney injury on CKD stage IV, Recent admission w/ Diuresis for CHF exacerbation: Secondary to recent diuresis w/ acute CHF exacerbation. Admission BUN/Cr 67/2.48, increased to 2.70, prior baseline creatinine noted to be 1.6- 1.8, 10/04/18 Cr 2.44, improving, nephrology consulted, following. Will continue to closely monitor as potential need to increase diuretic regimen. (5) Recent Acute Gout Flare: Resolved since 10/01/18, maintained on prednisone taper with noted completion 10/05/18. (6) Acute UTI, Ruled OUT: UA upon admission w/ concern for UTI initially, rocephin administered; however, UCx not marked, abx discontinued. 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 (8) Pulmonary HTN: Complicates presentation, RVSP 72 mm Hgb, continue treatment CHF as noted. (9) Hypertension: Continue home regimen including Bumex decreased from prior given AK I, hydralazine, isosorbide, PRN hydralazine. (10) Obesity: Weight loss and lifestyle changes encouraged. (11) DVT Prophylaxis: SCDs, heparin. Code Visit Inpatient E&M: 03179 Subs Hosp L3
--- NOTE | 2018-10-04 11:04 | PCM.PN.REN ---
Patient Problems: Active and Suspected Problems (Last Updated 08/17/18 @ 13:56 by Antonette Brown MD) Paroxysmal ventricular tachycardia (Acute) Near syncope (Acute) UTI (urinary tract infection) (Acute) Subjective: no new complaints breathing is at baseline requiring 2.5 L O2, she uses about the same at home - Physical Exam General: Alert, Oriented x3, Cooperative HEENT: Atraumatic, PERRLA, EOMI, Normocephalic Neck: Supple, No JVD, Negative Carotid Bruits Lungs: Rales Cardiovascular: Regular rate, No murmurs Abdomen: Bowel Sounds Present, Soft, Non Tender Extremities: No edema, Capillary Refill Less than 3 Seconds Skin: No rashes, No breakdown Musculoskeletal: No Tenderness to Palpation of Joints or Extremities Neurological: Cranial nerves II-XII grossly intact Psych/Mental Status: Normal Affect, Appropriate Vital Signs Temp Pulse Resp BP Pulse Ox 98 F 81 20 H 142/71 H 98 10/04/18 10:09 10/04/18 10:10/04/18 10:10/04/18 10:10/04/18 10:09 Oxygen Flow Rate (L/min) 2.5 Oxygen Delivery Method Nasal Cannula Weight: 108.3 kg Body Mass Index (BMI) 37.2 Intake and Output for Last 24 Hours 10/02/18 10/03/18 10/04/18 23:59 23:59 23:59 Intake Total 820.2 / 820.2 1092.2 / 1092.2 101 / 101 Output Total 1650 / 1650 1750 / 1750 400 / 400 Balance -829.8 / -829.8 -657.8 / -657.8 -299 / -299 Laboratory Tests Past 24 Hrs 10/04/18 06:15 Sodium 143 Potassium 4.0 Chloride 110 H Carbon Dioxide 22.0 Anion Gap 11 BUN 77 H Creatinine 2.44 H Estim Creat Clear Calc 16.93 Est GFR (MDRD) Af Amer 24 L Est GFR (MDRD) Non-Af 20 L BUN/Creatinine Ratio 31.6 H Glucose 82 Calcium 8.4 L Medical Necessity - Tobacco Use Smoking Status: Former smoker Tobacco Use: Non-smoker Assessment/Plan All Active Problems (Last Updated 08/17/18 @ 13:56 by Antonette Brown MD) Paroxysmal ventricular tachycardia (Acute) Near syncope (Acute) UTI (urinary tract infection) (Acute)
[2018-10-04] MEDS: Ipratropium/Albuterol Sulfate 3 ML AMPUL.NEB INHALATION ×3 (13:31→23:40)
[2018-10-05] VITALS (14 sets, daily range): BP systolic 106–151; BP diastolic 51–83; PULSE 72–97; RESP 16–25; TEMP 36.6–36.7; O2SAT 96–99
[2018-10-05] MEDS: hydrALAZINE 25 MG Tablet PO ×2 (05:14→14:01)
[2018-10-05] MEDS: Nystatin Powder 15gm Bottle 1 APPLIC TOPICAL ×2 (05:14→14:00)
[2018-10-05] MEDS: Isosorbide DN 10 MG Tablet PO ×2 (05:14→14:01)
[2018-10-05 06:27] LABS: Absolute Lymphocyte Count 1.92 X10^3/ul (0.83-4.51); Absolute Neutrophil Count 7.7 X10^3/uL (2.0-7.7); Basophil# 0.02 X10^3/uL; Basophil% 0.2 % (0-1); Eosinophil# 0.03 X10^3/uL; Eosinophils% 0.3 % (0-5); Hematocrit 35.3 % (37-47); Hemoglobin 11.4 g/dl (12.0-15.0); Lymphocyte # 1.92 X10^3/ul (4.0); Lymphocyte % 18.2 % (19-41); Mean Corp Hgb Conc 32.3 g/gl (32-36); Mean Corpuscular Hgb 28.7 pg (27.0-32.0); Mean Corpuscular Volume 88.9 fL (81-99); Mean Platelet Vol. 10.5 fl (6.2-12.0); Monocyte# 0.85 X10^3/uL; Monocyte% 8.1 % (0-10); Neutrophil # 7.65 X10^3/uL (2.7-7.7); Neutrophil % 72.5 % (47-70); Platelet Count 252 K/mm3 (150-450); RBC Distribution Width CV 16.1 % (11.6-14.6); RBC Distribution Width SD 51.5 fl (35.1-43.9); Red Blood Count 3.97 M/mm3 (4.2-5.4); White Blood Count 10.5 K/mm3 (4.4-11.0)
[2018-10-05 06:30] LABS: POSITIVE COUNT NO; POSITIVE DIFFERENTIAL NO; POSITIVE MORPHOLOGY NO
[2018-10-05 06:39] LABS: Anion Gap 9 (5-15); BUN 68 mg/dL (7-18); BUN/Creat Ratio 30.8 RATIO (10-20); Calcium,Total 8.4 mg/dL (8.5-10.1); Chloride 111 mmol/L (98-107); Creatinine, Serum 2.21 mg/dL (0.55-1.02); EST Glomerular Filtration Rate 23 mL/min (>60); Est Glom Filt Rate - Afr Amer 27 mL/min (>60); Estimated Creatinine Clearance 18.69 ml/min; Glucose 81 mg/dL (74-106); Potassium 3.9 mmol/L (3.5-5.1); Sodium Level 143 mmol/L (136-145)
[2018-10-05] MEDS: Ipratropium/Albuterol Sulfate 3 ML AMPUL.NEB INHALATION (07:26)
--- NOTE | 2018-10-05 07:30 | PCM.PN.CARD ---
Subjectve: Patient seen and evaluated. Appears to be doing better. Eager to go home. Objective: Vital Signs Temp Pulse Resp BP Pulse Ox 98.0 F 77 21 H 151/83 H 98 10/05/18 04:00 10/05/18 05:14 10/05/18 05:01 10/05/18 05:01 10/05/18 05:01 Oxygen Flow Rate (L/min) 2.5 Oxygen Delivery Method Nasal Cannula Weight: 240 lb 8.389 oz Body Mass Index (BMI) 37.2 Intake and Output for Last 24 Hours 10/03/18 10/04/18 10/05/18 23:59 23:59 23:59 Intake Total 1092.2 / 1092.2 935.1 / 935.1 86.8 / 86.8 Output Total 1750 / 1750 1220 / 1220 425 / 425 Balance -657.8 / -657.8 -284.9 / -284.9 -338.2 / -338.2 General: Awake, Alert, Oriented x 3 HEENT: PERRL, EOMI, Sclera Non Icteric Neck: Supple, Good ROM, No Lymph Node Enlargement Lungs: Clear to auscultation Cardiovascular: Regular Rhythm, Normal S1, Normal S2, No Murmurs, No Rubs, No Gallops Vascular: No Carotid Bruits, Normal Femoral Pulses, Normal Radial Pulses, Normal Dorsalis Pedal Pulse, Normal Posterior Tibial Pulses Abdomen: Bowel Sounds Present, Soft, Non Tender, No HSM, No Organomegaly Extremities: No Cyanosis, No Clubbing, No edema Neurological: No Focal Motor or Sensory Deficit 10/05/18 06:15: WBC 10.5, RBC 3.97 L, Hgb 11.4 L, Hct 35.3 L, MCV 88.9, MCH 28.7, MCHC 32.3, RDW 16.1 H, RDW Differential 51.5 H, Plt Count 252, MPV 10.5, Immature Gran % (Auto) 0.700, Neut % (Auto) 72.5 H, Lymph % (Auto) 18.2 L, Wright % (Auto) 8.1, Eos % (Auto) 0.3, Baso % (Auto) 0.2, Absolute Neuts (auto) 7.7, Total Counted Not Reportable 01/29/19 06:15: Sodium 143, Potassium 3.9, Chloride 111 H, Carbon Dioxide 23.0, Anion Gap 9, BUN 68 H, Creatinine 2.21 H, Est GFR (MDRD) Af Amer 27 L, Est GFR (MDRD) Non-Af 23 L, BUN/Creatinine Ratio 30.8 H, Glucose 81, Calcium 8.4 L Rhythm: EKG: ECHO: Stress Test: Cardiac Cath: PCI: CT Surgery: Holter monitor: EPS: PPM: CXR: Chest CT Scan: Medical Necessity - Tobacco Use Smoking Status: Former smoker Tobacco Use: Non-smoker Assessment/Plan 1. Nonsustained ventricular tachycardia The patient presents with that finding of nonsustained ventricular tachycardia. Apparently this is not new for her. The plan for now will be to continue with the oral amiodarone at a dose of 200 mg twice a day. We will recommend discharging her on this dose and would obtain an outpatient Holter monitor. 2. [id number] diastolic mediated CHF The patient will continue to be followed. She will continue medical management. Her medicines will need to be adjusted and around her vital signs and renal function, etc. to hopefully maintain a euvolemic state. She will remain on Bumex 1 mg a day 3. Pulmonary hypertension This may be secondary to a combination of the patient's cardiac condition but also her pulmonary condition with a history of COPD. She will need to continue medical management for this as best as possible. 4. Essential hypertension The patient's blood pressure can be monitored. She should continue medical therapy with avoidance of medications that would significantly negatively impact her cardiac rate as well as her renal function. We will start her on amlodipine 5 mg a day 5. COPD The patient has a history of COPD. She will continue by Wound Care per internal medicine. 6. Renal insufficiency. This appears to be fairly stable at this time. I think she can be discharged today with close follow-up in my office with the financial service professional within a week. Will arrange. Thank you for allowing me to participate in the care of your patient. Please don't hesitate to call if any issues arise
--- NOTE | 2018-10-05 07:33 | PN.CARD_ITS ---
Subjectve: Patient seen and evaluated. Appears to be doing better. Eager to go home. Objective: Vital Signs Temp Pulse Resp BP Pulse Ox 98.0 F 77 21 H 151/83 H 98 10/05/18 04:00 10/05/18 05:14 10/05/18 05:01 10/05/18 05:01 10/05/18 05:01 Oxygen Flow Rate (L/min) 2.5 Oxygen Delivery Method Nasal Cannula Weight: 240 lb 8.389 oz Body Mass Index (BMI) 37.2 Intake and Output for Last 24 Hours 10/03/18 10/04/18 10/05/18 23:59 23:59 23:59 Intake Total 1092.2 / 1092.2 935.1 / 935.1 86.8 / 86.8 Output Total 1750 / 1750 1220 / 1220 425 / 425 Balance -657.8 / -657.8 -284.9 / -284.9 -338.2 / -338.2 General: Awake, Alert, Oriented x 3 HEENT: PERRL, EOMI, Sclera Non Icteric Neck: Supple, Good ROM, No Lymph Node Enlargement Lungs: Clear to auscultation Cardiovascular: Regular Rhythm, Normal S1, Normal S2, No Murmurs, No Rubs, No Gallops Vascular: No Carotid Bruits, Normal Femoral Pulses, Normal Radial Pulses, Normal Dorsalis Pedal Pulse, Normal Posterior Tibial Pulses Abdomen: Bowel Sounds Present, Soft, Non Tender, No HSM, No Organomegaly Extremities: No Cyanosis, No Clubbing, No edema Neurological: No Focal Motor or Sensory Deficit 10/05/18 06:15: WBC 10.5, RBC 3.97 L, Hgb 11.4 L, Hct 35.3 L, MCV 88.9, MCH 28.7, MCHC 32.3, RDW 16.1 H, RDW Differential 51.5 H, Plt Count 252, MPV 10.5, Immature Gran % (Auto) 0.700, Neut % (Auto) 72.5 H, Lymph % (Auto) 18.2 L, Tucker % (Auto) 8.1, Eos % (Auto) 0.3, Baso % (Auto) 0.2, Absolute Neuts (auto) 7.7, Total Counted Not Reportable 01/29/19 06:15: Sodium 143, Potassium 3.9, Chloride 111 H, Carbon Dioxide 23.0, Anion Gap 9, BUN 68 H, Creatinine 2.21 H, Est GFR (MDRD) Af Amer 27 L, Est GFR (MDRD) Non-Af 23 L, BUN/Creatinine Ratio 30.8 H, Glucose 81, Calcium 8.4 L Rhythm: EKG: ECHO: Stress Test: Cardiac Cath: PCI: CT Surgery: Holter monitor: EPS: PPM: CXR: Chest CT Scan: Medical Necessity - Tobacco Use Smoking Status: Former smoker Tobacco Use: Non-smoker Assessment/Plan 1. Nonsustained ventricular tachycardia The patient presents with that finding of nonsustained ventricular tachycardia. Apparently this is not new for her. The plan for now will be to continue with the oral amiodarone at a dose of 200 mg twice a day. * We will recommend discharging her on this dose and would obtain an outpatient Holter monitor. 2. Pfmvs-mu-zlzlhci diastolic mediated CHF The patient will continue to be followed. She will continue medical management. Her medicines will need to be adjusted and around her vital signs and renal function, etc. to hopefully maintain a euvolemic state. She will remain on Bumex 1 mg a day 3. Pulmonary hypertension This may be secondary to a combination of the patient's cardiac condition but also her pulmonary condition with a history of COPD. She will need to continue medical management for this as best as possible. 4. Essential hypertension The patient's blood pressure can be monitored. She should continue medical therapy with avoidance of medications that would significantly negatively impact her cardiac rate as well as her renal function. * We will start her on amlodipine 5 mg a day 5. COPD The patient has a history of COPD. She will continue by Wound Care per internal medicine. 6. Renal insufficiency. This appears to be fairly stable at this time. I think she can be discharged today with close follow-up in my office with the direct support professional home health within a week. Will arrange. Thank you for allowing me to participate in the care of your patient. Please don't hesitate to call if any issues arise
[2018-10-05] MEDS: Aspirin 81 MG TAB.CHEW PO (08:37)
[2018-10-05] MEDS: predniSONE 10 MG Tablet PO (08:37)
--- NOTE | 2018-10-05 08:53 | CASEMGMT ---
Patient has a healthcare POA and it is on file. She has a healthcare LW, but it is not on file and patient is aware. Bella [employer]
[2018-10-05] MEDS: Heparin Injection (Vial) 5,000 UNIT/ML VIAL 5000 UNIT SC (11:06)
[2018-10-05] MEDS: Bumetanide 0.5 MG Tablet 1 MG PO (11:06)
[2018-10-05] MEDS: amLODIPine 5 MG Tablet PO (11:07)
[2018-10-05] MEDS: Amiodarone 200 MG Tablet PO (11:26)
--- NOTE | 2018-10-05 11:44 | PCM.PN.REN ---
Patient Problems: Active and Suspected Problems (Last Updated 08/17/18 @ 13:56 by Antonette Brown MD) Paroxysmal ventricular tachycardia (Acute) Near syncope (Acute) UTI (urinary tract infection) (Acute) Subjective: no new complaints breathing is ok, close to baseline - Physical Exam General: Alert, Oriented x3, Cooperative HEENT: Atraumatic, PERRLA, EOMI, Normocephalic Neck: Supple, No JVD, Negative Carotid Bruits Lungs: Clear to auscultation, Normal air movement Cardiovascular: Regular rate, No murmurs Abdomen: Bowel Sounds Present, Soft, Non Tender Extremities: No edema, Capillary Refill Less than 3 Seconds Skin: No rashes, No breakdown Musculoskeletal: No Tenderness to Palpation of Joints or Extremities Neurological: Cranial nerves II-XII grossly intact Psych/Mental Status: Normal Affect, Appropriate Vital Signs Temp Pulse Resp BP Pulse Ox 97.8 F 97 16 111/79 97 10/05/18 09:49 10/05/18 09:49 10/05/18 09:49 10/05/18 09:49 10/05/18 09:49 Oxygen Flow Rate (L/min) 2.5 Oxygen Delivery Method Nasal Cannula Weight: 109.1 kg Body Mass Index (BMI) 37.2 Intake and Output for Last 24 Hours 10/03/18 10/04/18 10/05/18 23:59 23:59 23:59 Intake Total 1092.2 / 1092.2 935.1 / 935.1 86.8 / 86.8 Output Total 1750 / 1750 1220 / 1220 425 / 425 Balance -657.8 / -657.8 -284.9 / -284.9 -338.2 / -338.2 Laboratory Tests Past 24 Hrs 10/05/18 10/05/18 06:15 06:15 WBC 10.5 RBC 3.97 L Hgb 11.4 L Hct 35.3 L MCV 88.9 MCH 28.7 MCHC 32.3 RDW 16.1 H RDW Differential 51.5 H Plt Count 252 MPV 10.5 Immature Gran % (Auto) 0.700 Neut % (Auto) 72.5 H Lymph % (Auto) 18.2 L Clinch % (Auto) 8.1 Eos % (Auto) 0.3 Baso % (Auto) 0.2 Absolute Neuts (auto) 7.7 Absolute Lymphs (auto) 1.92 Total Counted Not Reportable Sodium 143 Potassium 3.9 Chloride 111 H Carbon Dioxide 23.0 Anion Gap 9 BUN 68 H Creatinine 2.21 H Estim Creat Clear Calc 18.69 Est GFR (MDRD) Af Amer 27 L Est GFR (MDRD) Non-Af 23 L BUN/Creatinine Ratio 30.8 H Glucose 81 Calcium 8.4 L Medical Necessity - Tobacco Use Smoking Status: Former smoker Tobacco Use: Non-smoker Assessment/Plan All Active Problems (Last Updated 08/17/18 @ 13:56 by Antonette Brown MD) Paroxysmal ventricular tachycardia (Acute) Near syncope (Acute) UTI (urinary tract infection) (Acute) 1-Acute kidney injury on chronic kidney disease. 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 Baseline creatinine seems around 1.6 mg/dL. Patient had history of recent PEACE from cardiorenal syndrome. Acute kidney injury for this admission is most probably prerenal from hemodynamic instability along with diuretics. Creatinine peaked at 2.9 mg a deciliter. today at 2.2. 2-hypertension: Blood pressure is well controlled. 3-CHF with preserved ejection fraction: weight is around 240 lbs. she says this is her baseline weight. takes weights at home everyday. ok to dc on bumex 1 mg daily. increase bumex to 1 mg BID if weight increases by more than 4 lbs. call our office if weight still goes up after. she has an appt already in 4 weeks. will move it ahead, probably in next 1-[address] Aleman, her primary social problems specialist ok to dc today glenn Kaur
--- NOTE | 2018-10-05 11:57 | DCINST_ITS ---
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 (8) Pulmonary HTN (9) Hypertension (10) Obesity You will use the following diet at home:: Cardiac, Renal (restricted protein/sodium) Your food should be the consistency of: Regular Your liquids should be the consistency of: Regular/Thin Discharge Activity: Return to Normal Activity May resume sexual activity in: No Restrictions Weight Bearing Status: Weight bearing as tolerated Keep extremity elevated above heart level: Legs Call your doctor if you observe: Fever of 101 or Higher, Inability to urinate, Inability to have a bowel movement, Shortness of breath, Dizziness, Fainting spells, Swelling in the ankles, Chest pain, - - Weight gain > 4 lbs contact Nephrology office immediately. Instructions: Ventricular Arrhythmia, Discharge Instructions for Acute Kidney Injury Additional Instructions: Per Nephrology given acute kidney injury on chronic disease please continue bumex 1 mg daily but if your weight increases (check daily) by more than 4 lbs immediately contact the office and you may need to be increased to twice daily dosing. Dr. Duffy has started you on new blood pressure regimen in addition to continuation of amiodarone 200 mg twice daily. Please continue also his requested holter monitor with planned evaluation of data with Cardiology follow-up. His office will contact you to arrange appointment. Allergies/Adverse Reactions: Allergies clindamycin [From Cleocin] Allergy (Verified 09/15/18 10:54) Unknown oxycodone HCl [From OxyContin] Allergy (Verified 09/15/18 10:54) Anaphylaxis Sulfa (Sulfonamide Antibiotics) Allergy (Verified 09/15/18 10:54) Anaphylaxis vancomycin Allergy (Verified 09/15/18 10:54) Hives guaifenesin [From Entex LA] Adverse Reaction (Verified 09/15/18 10:54) Unknown phenylephrine [From Entex LA] Adverse Reaction (Verified 09/15/18 10:54) Unknown phenylpropanolamine [From Entex LA] Adverse Reaction (Verified 09/15/18 10:54) Unknown BETA BLOCKERS Adverse Reaction (Uncoded 09/15/18 10:54) Unknown Medications to take at Discharge Estrogens, Conjugated [Premarin] 0.3 mg PO QHS 04/04/15 MedroxyPROGESTERone [Provera] 5 mg PO QHS 05/18/15 Aspirin 325 mg PO DAILY@0800 04/12/18 Umeclidinium Brm/Vilanterol Tr [Anoro Ellipta 62.5-25 Mcg INH] 1 puff INHALATION DAILY 08/16/18 Cholecalciferol (Vitamin D3) [Vitamin D3] 2,000 unit PO DAILY 09/15/18 Hydrocodone/Acetaminophen [[place] 5-325 Tablet] 1 tab PO TID PRN PRN 09/15/18 hydrALAZINE [Apresoline] 25 mg PO TID 09/15/18 Amiodarone HCl [Cordarone] 200 mg PO BID #60 tab 10/05/18 Amlodipine [Norvasc] 5 mg PO DAILY #30 tab 10/05/18 Bumetanide [Bumex] 1 mg PO DAILY #30 tab 10/05/18 Isosorbide DN [Isordil] 10 mg PO TID #90 tab 10/05/18 Nystatin Powder [Mycostatin Powder] 1 applic TOPICAL TID #1 bottle 10/05/18 The following prescriptions were given: Amlodipine [Norvasc] 5 mg PO DAILY #30 tab Bumetanide [Bumex] 1 mg PO DAILY #30 tab Amiodarone HCl [Cordarone] 200 mg PO BID #60 tab Isosorbide DN [Isordil] 10 mg PO TID #90 tab Nystatin Powder [Mycostatin Powder] 1 applic TOPICAL TID #1 bottle Primary Care Physician: Dustin Mendieta MD [Primary Care Provider] - Please follow up with your Primary Care Physician in: Follow-up within 3-5 days to review admission. Test Results: Test results from this visit will be discussed in further detail at your follow- up appointment, if applicable. Please Follow Up With: Alistair Duffy MD When: Follow-up as arranged per Cardiology. Please Follow Up With: Ferdinand Aleman MD When: Follow-up as already arranged per Nephrology. Proposed Discharge Date: 10/05/18
--- NOTE | 2018-10-05 12:03 | DS.PCM_ITS ---
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 (8) Pulmonary HTN (9) Hypertension (10) Obesity - Secondary Discharge Diagnosis Chronic Problems (Last Updated 08/17/18 @ 13:56 by Antonette Brown MD) Diastolic CHF, acute on chronic (Chronic) Acute kidney injury superimposed on chronic kidney disease (Chronic) COPD (chronic obstructive pulmonary disease) (Chronic) Chronic respiratory failure with hypoxia (Chronic) Chronic renal failure, stage 3 (moderate) (Chronic) 3-4 Hormone replacement therapy (Chronic) Pulmonary hypertension (Chronic) PA pressure 57 in November 2017 Stasis dermatitis (Chronic) Obesity, morbid, BMI 40.0-49.9 (Chronic) Gout (Chronic) Hypertension (Chronic) History of TIA (transient ischemic attack) (Chronic) 1998 History of kidney cancer (Chronic) S/P nephrectomy Hospital Course and Treatment Dr. Duffy/Dr. Mirza Cardiology Dr. 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 Recent admission w/ discharge on amiodarone 200 mg BID in addition to diltiazem 60 mg po q 6 hours on 09/23/18, notable bradycardia following, noted concurrent bursts NSVT with amiodarone drip w/ oral transition, discontinuation of diltizem secondary to bradycardia. Patient admitted to PCU, maintained on telemetry, Cardiology consulted with as noted concurrent episodes of NSVT, Acute on Chronic noted on telemetry, asymptomatic, maintained on IV amiodarone w/ 10/05/18 transition to oral amiodarone per Cardiology discretion. During admission Cardiology discussions w/ [facility] EP Soot Blower w/ deferral of transfer, mag 2.0, recent normal TSH 3.05. Cardiology did note following discharge at follow-up would likely do Holter monitor testing to assure resolution. Patient with recent CHF exacerbation during prior admission however upon admission CXR obtained in the ED w/ minimal congestion, improved from prior however. Diuretic regimen had been decreased w/ PEACE on CKD, with admission BUN/Cr 67/2.48, increased to 2.70, prior baseline creatinine noted to be 1.6-1.8, 10/05/18 BUN/Cr 68/2.21, improved, nephrology consulted with discharge on bumex 1 mg daily with close weight monitoring and if > 4 lb weight gain instructions to patient to immediately contact office with likely transition to BID dosing. Patient with recent Acute Gout Flare noted to have resolved since 10/01/18, treated with prednisone taper, completed. Initial concerns upon admission for acute UTI, rocephin initially administered; however, UCx not marked, abx discontinued with UTI ruled out. Patient discharged to home in improved clinical she with follow-up with primary care physician in addition to cardiology. DAY OF DISCHARGE PROGRESS NOTE: Subjective: Patient without acute event overnight per self and nursing report. Patient denies fever, chills, nausea, emesis, abdominal pain, chest pain or dyspnea. Patient agreeable to discharge to home, noting very eager to get home. Son present. Patient will be discharged with follow-up with primary care ph ysician within 3-5 days in addition to up with cardiology with her office planning to contact patient for visit. Also notified patient that would plan Holter monitor testing at outpatient follow-up with cardiology. Objective: T 97.8, heart rate 97, BP 111/79, respiratory rate 16, 97% on home 2.5 L nasal cannula. Physical Examination: General: awake, alert, oriented x 3 and cooperative, seated upright in bedside chair, in no apparent distress. Skin: normal color, turgor, no icterus, cyanosis. HEENT: AT/NC, EOMI, PERRLA, MMM. Lungs: CTA bilaterally, moderate effort, mild decrease BL bases, no rales, ronchi or wheezing. Heart: Irregular irregular; no gallop, rub audible. Abdomen: soft, obese, NTTP, ND, normal BS. Extremities: no cyanosis, clubbing, BL ankle to distal lion edema again e ncouragement for elevation bilateral lower extremity above heart. Neurological: patient awake, alert, oriented x 3; cognitive function intact; pupils equally reactive to light and accomodation; cranial nerves II-XII grossly normal, moving all 4 extremities, no focal deficits, strength improving, moderate globally decreased. Psychiatric: affect appears normal, no acute evidence of depressive or anxiety feelings. Assessment and Plan: Please see hospital summary above. - Physical Exam Vital Signs Temp Pulse Resp BP Pulse Ox 97.8 F 97 16 111/79 97 10/05/18 09:49 10/05/18 09:49 10/05/18 09:49 10/05/18 09:49 10/05/18 09:49 Oxygen Flow Rate (L/min) 2.5 Oxygen Delivery Method Nasal Cannula Weight: 240 lb 8.389 oz Body Mass Index (BMI) 37.2 Intake and Output for Last 24 Hours 10/03/18 10/04/18 10/05/18 23:59 23:59 23:59 Intake Total 1092.2 / 1092.2 935.1 / 935.1 86.8 / 86.8 Output Total 1750 / 1750 1220 / 1220 425 / 425 Balance -657.8 / -657.8 -284.9 / -284.9 -338.2 / -338.2 Laboratory Tests Past 24 Hrs 10/05/18 10/05/18 06:15 06:15 WBC 10.5 RBC 3.97 L Hgb 11.4 L Hct 35.3 L MCV 88.9 MCH 28.7 MCHC 32.3 RDW 16.1 H RDW Differential 51.5 H Plt Count 252 MPV 10.5 Immature Gran % (Auto) 0.700 Neut % (Auto) 72.5 H Lymph % (Auto) 18.2 L [place] % (Auto) 8.1 Eos % (Auto) 0.3 Baso % (Auto) 0.2 Absolute Neuts (auto) 7.7 Absolute Lymphs (auto) 1.92 Total Counted Not Reportable Sodium 143 Potassium 3.9 Chloride 111 H Carbon Dioxide 23.0 Anion Gap 9 BUN 68 H Creatinine 2.21 H Estim Creat Clear Calc 18.69 Est GFR (MDRD) Af Amer 27 L Est GFR (MDRD) Non-Af 23 L BUN/Creatinine Ratio 30.8 H Glucose 81 Calcium 8.4 L Discharge Activity: Return to Normal Activity May resume sexual activity in: No Restrictions Weight Bearing Status: Weight bearing as tolerated Keep extremity elevated above heart level: Legs Call your doctor if you observe: Fever of 101 or Higher, Inability to urinate, Inability to have a bowel movement, Shortness of breath, Dizziness, Fainting spells, Swelling in the ankles, Chest pain, - - Weight gain > 4 lbs contact Nephrology office immediately. Home Medications: Medications to take at Discharge Estrogens, Conjugated [Premarin] 0.3 mg PO QHS 04/04/15 MedroxyPROGESTERone [Provera] 5 mg PO QHS 05/18/15 Aspirin 325 mg PO DAILY@0800 04/12/18 Umeclidinium Brm/Vilanterol Tr [Anoro Ellipta 62.5-25 Mcg INH] 1 puff INHALATION DAILY 08/16/18 Cholecalciferol (Vitamin D3) [Vitamin D3] 2,000 unit PO DAILY 09/15/18 Hydrocodone/Acetaminophen [[place] 5-325 Tablet] 1 tab PO TID PRN PRN 09/15/18 hydrALAZINE [Apresoline] 25 mg PO TID 09/15/18 Amiodarone HCl [Cordarone] 200 mg PO BID #60 tab 10/05/18 Amlodipine [Norvasc] 5 mg PO DAILY #30 tab 10/05/18 Bumetanide [Bumex] 1 mg PO DAILY #30 tab 10/05/18 Isosorbide DN [Isordil] 10 mg PO TID #90 tab 10/05/18 Nystatin Powder [Mycostatin Powder] 1 applic TOPICAL TID #1 bottle 10/05/18 Following Prescrptions Were Given to Patient: Amlodipine [Norvasc] 5 mg PO DAILY #30 tab Bumetanide [Bumex] 1 mg PO DAILY #30 tab Amiodarone HCl [Cordarone] 200 mg PO BID #60 tab Isosorbide DN [Isordil] 10 mg PO TID #90 tab Nystatin Powder [Mycostatin Powder] 1 applic TOPICAL TID #1 bottle Primary Care Physician: Dustin Mendieta MD [Primary Care Provider] - Please follow up with your Primary Care Physician in: Follow-up within 3-5 days to review admission. Please Follow Up With: Alistair Duffy MD When: Follow-up as arranged per Cardiology. Please Follow Up With: Ferdinand Aleman MD When: Follow-up as already arranged per Nephrology. Patient Instructions: Ventricular Arrhythmia, Discharge Instructions for Acute Kidney Injury Disposition: Home Minutes spent on discharge:: 35 Patient Condition:: Fair Medical Necessity - Tobacco Use Smoking Status: Former smoker Tobacco Use: Non-smoker Meaningful Use Info Meaningful Use Diagnoses (Choose all that apply): None applicable Code Visit Inpatient E&M: 38455 Disch Hosp
--- NOTE | 2018-10-06 15:53 | CASEMGMT ---
RN CM Discharge F/U Phone Call LACE: 10 Strata: 3 Discharge date: 10/05/18 Call date: 10/06/18 Call time: 1554 Attempted to reach pt at this time without success, message left for pt to call this RN CM back when able. SStaten RN CM Admission dx: Afib, bradycardia, UTI
--- OUTSIDE RECORDS SUMMARY | 2018-11-30 23:34 | XMS RPT_ITS ---
:1935 Author Organization OHIP Support Name Relationship Address Phone R Unavailable Unavailable Unavailable VIRAL STEVENSONIN Unavailable [address] + [place] [address] STEVENSON TILA Unavailable [address] + [place] [address] R Unavailable Unavailable Unavailable STEVENSONVIRALIN Unavailable [address] + [place] [address] STEVENSON, TILA Unavailable [address] + [place] [address] R Unavailable Unavailable Unavailable STEVENSON BRIGID Unavailable [address] + [place] [address] STEVENSON, TILA Unavailable [address] + [place] [address] R Unavailable Unavailable Unavailable STEVENSON, BRIGID Unavailable [address] + [place] [address] STEVENSON, TILA Unavailable [address] + [place] [address] R Unavailable Unavailable Unavailable STEVENSON, BRIGID Unavailable [address] + [place] [address] STEVENSON, TILA Unavailable [address] + [place] [address] R Unavailable Unavailable Unavailable STEVENSON, BRIGID Unavailable [address] + [place] [address] STEVENSON, TILA Unavailable [address] + [place] [address] R Unavailable Unavailable Unavailable STEVENSON, BRIGID Unavailable [address] + [place] [address] STEVENSON, TILA Unavailable [address] + [place] [address] R Unavailable Unavailable Unavailable STEVENSON, BRIGID Unavailable [address] + [place] [address] STEVENSON, TILA Unavailable [address] + [place] [address] STEVENSON, BRIGID Unavailable Unavailable + STEVENSON, BRIGID Unavailable Unavailable + STEVENSON, BRIGID Unavailable Unavailable + R Unavailable Unavailable Unavailable STEVENSON, BRIGID Unavailable [address] + [place] [address] STEVENSON, TILA Unavailable [address] + [place] [address] R Unavailable Unavailable Unavailable STEVENSON, BRIGID Unavailable [address] + [place] [address] STEVENSON, TILA Unavailable [address] + [place] [address] R Unavailable Unavailable Unavailable STEVENSON, BRIGID Unavailable [address] + [place] [address] STEVENSON, TILA Unavailable [address] + [place] [address] R Unavailable Unavailable Unavailable STEVENSON, BRIGID Unavailable [address] + [place] [address] STEVENSON, TILA Unavailable [address] + [place] [address] R Unavailable Unavailable Unavailable STEVENSON, BRIGID Unavailable [address] + [place] [address] STEVENSON, TILA Unavailable [address] + [place] [address] R Unavailable Unavailable Unavailable SETVENSON, BRIGID Unavailable [address] + [place] [address] STEVENSON, TILA Unavailable [address] + [place] [address] R Unavailable Unavailable Unavailable STEVENSON, BRIGID Unavailable [address] + [place] [address] STEVENSON, TILA Unavailable [address] + [place] [address] R Unavailable Unavailable Unavailable STEVENSON, BRIGID Unavailable [address] + [place] [address] STEVENSON, TILA Unavailable [address] + [place] [address] R Unavailable Unavailable Unavailable STEVENSON, BRIGID Unavailable [address] + [place] [address] STEVENSON, TILA Unavailable [address] + [place] [address] R Unavailable Unavailable Unavailable STEVENSON, BRIGID Unavailable [address] + [place] [address] STEVENSON, TILA Unavailable [address] + [place] [address] R Unavailable Unavailable Unavailable STEVENSON, BRIGID Unavailable [address] + [place] [address] STEVENSON, TILA Unavailable [address] + [place] [address] STEVENSON, BRIGID Unavailable Unavailable + STEVENSON, BRIGID Unavailable Unavailable + STEVENSON, BRIGID Unavailable Unavailable + STEVENSON, BRIGID Unavailable Unavailable + STEVENSON, BRIGID Unavailable Unavailable + STEVENSON, BRIGID Unavailable Unavailable + R Unavailable Unavailable Unavailable STEVENSON, BRIGID Unavailable [address] + [place] [address] STEVENSON, TILA Unavailable [address] + [place] [address] R Unavailable Unavailable Unavailable STEVENSON, BRIGID Unavailable [address] + [place] [address] STEVENSON, TILA Unavailable [address] + [place] [address] R Unavailable Unavailable Unavailable STEVENSON, BRIGID Unavailable [address] + [place] [address] STEVENSON, TILA Unavailable [address] + [place] [address] R Unavailable Unavailable Unavailable STEVENSON, BRIGID Unavailable [address] + [place] [address] STEVENSON, TILA Unavailable [address] + [place] [address] R Unavailable Unavailable Unavailable STEVENSON, BRIGID Unavailable [address] + [place] [address] STEVENSON, TILA Unavailable [address] + [place] [address] R Unavailable Unavailable Unavailable STEVENSON, BRIGID Unavailable [address] + [place] [address] STEVENSON, TILA Unavailable [address] + [place] [address] R Unavailable Unavailable Unavailable STEVENSON, BRIGID Unavailable [address] + [place] [address] STEVENSON, TILA Unavailable [address] + [place] [address] R Unavailable Unavailable Unavailable STEVENSON, BRIGID Unavailable [address] + [place] [address] STEVENSON, TILA Unavailable [address] + [place] [address] R Unavailable Unavailable Unavailable STEVENSON, BRIGID Unavailable [address] + [place] [address] STEVENSON, TILA Unavailable [address] + [place] [address] R Unavailable Unavailable Unavailable STEVENSON, BRIGID Unavailable [address] + [place] [address] STEVENSON, TILA Unavailable [address] + [place] [address] R Unavailable Unavailable Unavailable STEVENSON, BRIGID Unavailable [address] + [place] [address] STEVENSONWILFRIDEN Unavailable [address] + [place] [address] R Unavailable Unavailable Unavailable STEVENSONVIRALIN Unavailable [address] + [place] [address] STEVENSONWILFRIDEN Unavailable [address] + [place] [address] R Unavailable Unavailable Unavailable STEVENSONVIRALIN Unavailable [address] + [place] [address] STEVENSONWILFRIDEN Unavailable [address] + [place] [address] R Unavailable Unavailable Unavailable STEVENSONVIRALIN Unavailable [address] + [place] [address] STEVENSONWILFRIDEN Unavailable [address] + [place] [address] R Unavailable Unavailable Unavailable STEVENSONVIRALIN Unavailable [address] + [place] [address] STEVENSONWILFRIDEN Unavailable [address] + [place] [address] R Unavailable Unavailable Unavailable STEVENSONVIRALIN Unavailable [address] + [place] [address] STEVENSONWILFRIDEN Unavailable [address] + [place] [address] R Unavailable Unavailable Unavailable STEVENSONVIRALIN Unavailable [address] + [place] [address] STEVENSONWILFRIDEN Unavailable [address] + [place] [address] R Unavailable Unavailable Unavailable STEVENSON, BRIGID Unavailable [address] + [place] [address] STEVENSON, TILA Unavailable [address] + [place] [address] R Unavailable Unavailable Unavailable STEVENSON, BRIGID Unavailable [address] + [place] [address] STEVENSON, TILA Unavailable [address] + [place] [address] R Unavailable Unavailable Unavailable STEVENSON, BRIGID Unavailable [address] + [place] [address] STEVENSON, TILA Unavailable [address] + [place] [address] R Unavailable Unavailable Unavailable STEVENSON, BRIGID Unavailable [address] + [place] [address] STEVENSON, TILA Unavailable [address] + [place] [address] R Unavailable Unavailable Unavailable STEVENSON, BRIGID Unavailable [address] + [place] [address] STEVENSON, TILA Unavailable [address] + [place] [address] R Unavailable Unavailable Unavailable STEVENSON, BRIGID Unavailable [address] + [place] [address] STEVENSON, TILA Unavailable [address] + [place] [address] R Unavailable Unavailable Unavailable STEVENSON, BRIGID Unavailable [address] + [place] [address] STEVENSON, TILA Unavailable [address] + [place] [address] R Unavailable Unavailable Unavailable STEVENSON, BRIGID Unavailable [address] + [place] [address] STEVENSON, TILA Unavailable [address] + [place] [address] R Unavailable Unavailable Unavailable STEVENSON, BRIGID Unavailable [address] + [place] [address] STEVENSON, TILA Unavailable [address] + [place] [address] R Unavailable Unavailable Unavailable STEVENSON, BRIGID Unavailable [address] + [place] [address] STEVENSON, TILA Unavailable [address] + [place] [address] R Unavailable Unavailable Unavailable STEVENSON, BRIGID Unavailable [address] + [place] [address] STEVENSON, TILA Unavailable [address] + [place] [address] R Unavailable Unavailable Unavailable STEVENSON, BRIGID Unavailable [address] + [place] [address] STEVENSON, TILA Unavailable [address] + [place] [address] R Unavailable Unavailable Unavailable STEVENSON, BRIGID Unavailable [address] + [place] [address] STEVENSON, TILA Unavailable [address] + [place] [address] R Unavailable Unavailable Unavailable STEVENSON, BRIGID Unavailable [address] + [place] [address] STEVENSON, TILA Unavailable [address] + [place] [address] R Unavailable Unavailable Unavailable STEVENSON, BRIGID Unavailable [address] + [place] [address] STEVENSON, TILA Unavailable [address] + [facility] [address] STEVENSON, BRIGID Unavailable Unavailable + STEVENSON, BRIGID Unavailable Unavailable + STEVENSON, BRIGID Unavailable Unavailable + STEVENSON, BRIGID Unavailable Unavailable + STEVENSON, BRIGID Unavailable Unavailable + STEVENSON, BRIGID Unavailable Unavailable + Care Team Providers Name Role Phone POLI MENDIETA Attending Unavailable LILLYCOUR, POLI Primary Care Unavailable POLI MENDIETA Attending Unavailable LILLYCOUR, POLI Primary Care Unavailable STEPHANIE BRANNON, DR. ANTONETTE Renteria Attending Unavailable LILLYCOKALYAN, POLI Primary Care Unavailable MARIELY BRANNON, FERDINAND Attending Unavailable LILLYCOUR, POLI Primary Care Unavailable TERESA VILLARREAL MD Attending Unavailable LILLYCOKALYAN, POLI Primary Care Unavailable Sementi, Sarah Admitting Unavailable Sementi, Sarah Attending Unavailable ZACOUR, POLI Primary Care Unavailable Sementi, Sarah Consulting Unavailable Sementi, Sarah Admitting Unavailable ZACOUR, POLI Primary Care Unavailable Bakhous, Aziz Consulting Unavailable Ashelfah, Ghasem Attending Unavailable Ashelfah, Ghasem Consulting Unavailable Ashelfah, Ghasem Attending Unavailable Sementi, Sarah Admitting Unavailable ZACOUR, POLI Primary Care Unavailable Bakhous, Aziz Consulting Unavailable Ashelfah, Ghasem Consulting Unavailable Alistair Vidal Attending Unavailable Ashelfah, Ghasem Referring Unavailable Ashelfah, Ghasem Admitting Unavailable Ashelfah, Ghasem Attending Unavailable ZACOUR, POLI Primary Care Unavailable Ashelfah, Ghasem Consulting Unavailable Ashelfah, Ghasem Admitting Unavailable Mat Ash Attending Unavailable ZACOUR, POLI Primary Care Unavailable Bakhous, Aziz Consulting Unavailable Young, John Consulting Unavailable Ashelfah, Ghasem Admitting Unavailable Nilsa Mat Attending Unavailable ZACOUR, POLI Primary Care Unavailable Bakhous, Aziz Consulting Unavailable Young, John Consulting Unavailable Ashelfah, Ghasem Admitting Unavailable NilsaIany Attending Unavailable ZACOUR, POLI Primary Care Unavailable Bakhous, Aziz Consulting Unavailable Young, John Consulting Unavailable ZACOUR, POLI Primary Care Unavailable White, Constance Admitting Unavailable Abdiel Mosley D.O. Consulting Unavailable Ashelfah, Ghasem Attending Unavailable White, Constance Admitting Unavailable Francia Braga [employer]-C Attending Unavailable ZACOUR, POLI Primary Care Unavailable Abdiel Mosley D.O. Consulting Unavailable Imjhonathan Yoichi Consulting Unavailable Ashelfah, Ghasem Admitting Unavailable ZAK Donaldson Attending Unavailable ZACOUR, POLI Primary Care Unavailable Bakhous, Aziz Consulting Unavailable Young, John Consulting Unavailable Ashelfah, Ghasem Admitting Unavailable Young, John Attending Unavailable Ashelfah, Ghasem Referring Unavailable ZACOUR, POLI Primary Care Unavailable Ashelfah, Ghasem Consulting Unavailable Ashelfah, Ghasem Admitting Unavailable Ashelfah, Ghasem Referring Unavailable ZACOUR, POLI Primary Care Unavailable Bakhous, Aziz Consulting Unavailable Laci Pace Attending Unavailable Moodispaw, Cornelius Consulting Unavailable Ashelfah, Ghasem Admitting Unavailable Jopperi, Laci Attending Unavailable Ashelfah, Ghasem Referring Unavailable ZACOUR, POLI Primary Care Unavailable Bakhous, Aziz Consulting Unavailable Jopperi, Laci Consulting Unavailable Ashelfah, Ghasem Admitting Unavailable Jopperi, Laci Attending Unavailable Ashelfah, Ghasem Referring Unavailable ZACOUR, POLI Primary Care Unavailable Bakhous, Aziz Consulting Unavailable Jopperi, Laci Consulting Unavailable Alistair Vidal Attending Unavailable Ashelfah, Ghasem Referring Unavailable Ashelfah, Ghasem Admitting Unavailable Jopperi, Laci Attending Unavailable Ashelfah, Ghasem Referring Unavailable ZACOUR, POLI Primary Care Unavailable Bakhous, Aziz Consulting Unavailable Moodispaw, Cornelius Consulting Unavailable Jopperi, Laci Consulting Unavailable Ashelfah, Ghasem Admitting Unavailable Moodispaw, Cornelius Attending Unavailable Ashelfah, Ghasem Referring Unavailable ZACOUR, POLI Primary Care Unavailable Bakhous, Aziz Consulting Unavailable Moodispaw, Cornelius Consulting Unavailable Jopperi, Laci Consulting Unavailable Ashelfah, Ghasem Admitting Unavailable Jopperi, Laci Attending Unavailable Ashelfah, Ghasem Referring Unavailable ZACOUR, POLI Primary Care Unavailable Bakhous, Aziz Consulting Unavailable Moodispaw, Cornelius Consulting Unavailable Jopperi, Laci Consulting Unavailable Ashelfah, Ghasem Admitting Unavailable Moodispaw, Cornelius Attending Unavailable Ashelfah, Ghasem Referring Unavailable ZACOUR, POLI Primary Care Unavailable Bakhous, Aziz Consulting Unavailable Moodispaw, Cornelius Consulting Unavailable Jopperi, Laci Consulting Unavailable Constance Kaur Admitting Unavailable ZACOUR, POLI Primary Care Unavailable Abdiel Mosley D.O. Consulting Unavailable Paintsil, Oakes Attending Unavailable Imjhonathan, Yoichi Consulting Unavailable Meseret Sommers Attending Unavailable ZACOUR, POLI Referring Unavailable Yayo Wilson Attending Unavailable Meseret Sommers Referring Unavailable Abdiel Mosley D.O. Attending Unavailable ZACOUR, POLI Referring Unavailable ZACOUR, POLI Primary Care Unavailable ZACHARIAH SOLIS Attending Unavailable Meseret Sommers Attending Unavailable ZACOUR, POLI Referring Unavailable Meseret Sommers Attending Unavailable Tootie, Meseret Referring Unavailable ZACOUR, POLI Primary Care Unavailable Meseret Sommers Attending Unavailable Tootie, Meseret Referring Unavailable ZACOUR, POLI Primary Care Unavailable Clive, Madison Attending Unavailable White, Constance Admitting Unavailable Ashelfah, Ghasem [...] Unavailable Abdiel Brown, D.O. Consulting Unavailable Paintsil, Oakes Attending Unavailable Imamura, Yoichi Consulting Unavailable White, Constance Attending Unavailable ZACOUR, POLI Primary Care Unavailable Ashelfah, Ghasem Admitting Unavailable Ashelfah, Ghasem [...] Primary Care Unavailable Ashelfah, Ghasem Consulting Unavailable ZACOUR, POLI Primary Care Unavailable Ashelfah, Ghasem Admitting Unavailable Ferdinand Aleman Consulting Unavailable John Vidal Attending Unavailable Sementi, Sarah Admitting Unavailable Ashelfah, Ghasem Attending Unavailable ZACOUR, POLI Primary Care Unavailable Bakhous, Aziz Consulting Unavailable Ashelfah, Ghasem Consulting Unavailable ZACOUR, POLI Primary Care Unavailable Sementi, Sarah Admitting Unavailable Bakhous, Aziz Consulting Unavailable Ashelfah, Ghasem Attending Unavailable Cornelius Mirza Attending Unavailable White, Constance Referring Unavailable White, Constance Admitting Unavailable Tereletsky, Jeanmarie Attending Unavailable ZACOUR, POLI Primary Care Unavailable Tereletsky, Jeanmarie Consulting Unavailable White, Constance Admitting Unavailable White, Constance Attending Unavailable ZACOUR, POLI Primary Care Unavailable White, Constance Consulting Unavailable ZACOUR, POLI Primary Care Unavailable White, Constance Admitting Unavailable Tereletsky, Jeanmarie Attending Unavailable Abdiel Mosley D.O. Attending Unavailable Meseret Sommers Referring Unavailable Wendy Carter Attending Unavailable Cornelius Mirza Attending Unavailable White, Constance Referring Unavailable PROBLEMS PROBLEMS DATE TYPE CONDITION / CODE ATTENDING STATUS SOURCE 09/15/2018 Unknown 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, Alistair Active 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 and chronic kidney Hospital disease with heart Repository failure and stage 1 through stage 4 chronic kidney disease, or unspecified chronic kidney disease / I13.0(ICD-10) 09/15/2018 Unknown I50.33 - Acute on Clive, Alistair Active [facility] chronic diastolic Community (congestive) heart Hospital failure / Repository I50.33(ICD-10) 05/24/2018 Unknown R06.02 - Shortness MoodisCornelius márquez Active [facility] of breath / Community R06.02(ICD-10) Hospital Repository 05/24/2018 Unknown R07.89 - Other Moodisparefugio, Cornelius Active [facility] chest pain / Community R07.89(ICD-10) Hospital Repository 10/01/2018 Unknown R07.9 - Chest Tereletsky, Active [facility] pain, unspecified Jeanmarie Community / R07.9(ICD-10) Hospital Repository 03/11/2018 Unknown R10.31 - Right IRMA, ZACHARIAH Active [facility] lower quadrant Community pain / Hospital R10.31(ICD-10) Repository 03/02/2018 Unknown J96.11 - Chronic Thomas Daley respiratory D.O. Community failure with Hospital hypoxia / Repository J96.11(ICD-10) 12/25/2017 Unknown G47.19 - Other Sommers, Active [facility] hypersomnia / Mese[facility] Community G47.19(ICD-10) Hospital Repository 12/25/2017 Unknown J44.1 - Chronic Sommers, Active [facility] obstructive [facility] pulmonary disease Hospital with (acute) Repository exacerbation / J44.1(ICD-10) 12/25/2017 Unknown J96.01 - Acute Sommers, Active [facility] respiratory [facility] failure with Hospital hypoxia / Repository J96.01(ICD-10) PROCEDURES PROCEDURES No Procedure Records FoundRESULTS RESULTS BASIC METABOLIC Collected: 10/03/2018 Status: F Source: [facility] PROFILE (BMP) 4:55 AM [facility] REPOSITORY TYPE CODE TESTS RESULT OUT OF RANGE REFERENCE UNITS LAB L501.0100 74-106 mg/dL Normal GLU 102 Result Comment: Fasting Glucose result from 100 to 125 mg/dL suggests IMPAIRED HOMEOSTASIS per A.D.A. criteria. Please note revised GLUCOSE reference range effective 2017. LAB L501.1000 7-18 mg/dL High BUN 80 LAB L501.1100 0.55-1.02 mg/dL High CREAT,SERUM 2.70 Result Comment: The validity of the calculated GFR AND GFRAA in patients over 70 years has not been determined. Clinical correlation is essential. LAB L501.1110 >60 mL/min Low EST GFR 18 Result Comment: Non- GFR Calc LAB L501.1115 >60 mL/min Low EST GFR - AA 22 Result Comment: GFR Calc LAB L501.1255 ml/min Normal Estimated CRCL 15.30 LAB L501.1300 10-20 RATIO High BUN/CRE 29.6 LAB L501.2200 8.5-10 mg/dL Normal .1 CA 8.5 LAB L501.5300 136-14 mmol/L Normal 5 NA 144 LAB L501.5600 3.5-5. mmol/L Normal 1 K 4.1 LAB L501.5900 98-107 mmol/L High CL 109 LAB L501.6100 21.0-3 mmol/L Normal 2.0 CO2 22.0 LAB L501.6200 5-15 Normal GAP 13 Performed By: #### L500.2500 #### [facility] [address] [place], [address] BASIC METABOLIC Collected: 10/02/2018 Status: F Source: [facility] PROFILE (BMP) 5:34 AM [facility] REPOSITORY TYPE CODE TESTS RESULT OUT OF RANGE REFERENCE UNITS LAB L501.0100 74-106 mg/dL High GLU 111 Result Comment: Fasting Glucose result from 100 to 125 mg/dL suggests IMPAIRED HOMEOSTASIS per A.D.A. criteria. Please note revised GLUCOSE reference range effective 2017. LAB L501.1000 7-18 mg/dL High BUN 73 LAB L501.1100 0.55-1.02 mg/dL High CREAT,SERUM 2.52 Result Comment: The validity of the calculated GFR AND GFRAA in patients over 70 years has not been determined. Clinical correlation is essential. LAB L501.1110 >60 mL/min Low EST GFR 20 Result Comment: Non- GFR Calc LAB L501.1115 >60 mL/min Low EST GFR - AA 24 Result Comment: GFR Calc LAB L501.1255 ml/min Normal Estimated CRCL 16.39 LAB L501.1300 10-20 RATIO High BUN/CRE 29.0 LAB L501.2200 8.5-10 mg/dL Normal .1 CA 8.6 LAB L501.5300 136-14 mmol/L Normal 5 NA 145 LAB L501.5600 3.5-5. mmol/L Normal 1 K 4.1 LAB L501.5900 98-107 mmol/L High CL 108 LAB L501.6100 21.0-3 mmol/L Normal 2.0 CO2 25.0 LAB L501.6200 5-15 Normal GAP 12 Performed By: #### L500.2500 #### [facility] [address] [place], [address] CONSULTATION Observed: 10/01/2018 Status: F Source: ROMEL 2:44 PM [facility] REPOSITORY [facility] Medical Records Department [address] [place] [address] Consultation 10/01/18 1416 MR#: [id number] Acct: [id number] Name: MILAGROS STEVENSON Rep #: [id number] : 1935 83 From: Cornelius Mirza MD PCP: Poli Mendieta MD Status: ADM IN Y Location: [place] [id number] Problem List (1) Paroxysmal ventricular tachycardia Status: Acute (2) Diastolic CHF, acute on chronic Status: Chronic (3) Pulmonary hypertension Status: Chronic Comment: PA pressure 57 in November 2017 (4) Hypertension Status: Chronic Qualifiers: (5) COPD (chronic obstructive pulmonary disease) Status: Chronic (6) Acute kidney injury superimposed on chronic kidney disease Status: Chronic (7) UTI (urinary tract infection) Status: Acute Reason for Consult Date of Consultation: 10/01/18 History of Present Illness: The patient is a 83 year old white female with a past medical history of underlying diastolic mediated CHF, pulmonary hypertension, essential hypertension, COPD, renal cell carcinoma status post nephrectomy, chronic renal insufficiency, who was referred for concerns of recurrent nonsustained ventricular tachycardia. She had recently been evaluated for a variety of medical issues including concerns of [id number] diastolic mediated CHF. Apparently during that hospitalization and her concerns of nonsustained ventricular tachycardia. Based upon previous medical records it appears that there was a conversation with Dr. Vidal that led to the initiation of additional medical management including amiodarone therapy. The patient was eventually released home. However she presented back based upon can sequence of not feeling well and alteration vital signs with bradycardia and what appeared to be [id number] renal insufficiency. Since her admission to the hospital she has been undergoing medical management. She has been on telemetry monitoring. She has been in sinus rhythm. However she has been noted to Have episodes of underlying nonsustained wide complex tachycardia compatible with nonsustained VT. She has denied any symptoms associated with this. At the same time she states she has not had any acute chest discomfort. She believes her breathing is better overall. She states she has never had any significant lower extremity peripheral pitting edema. She has denied near syncope or syncope. She states she feels better but she is very concerned about her big 3 problems which include her heart, lungs, and kidneys. She states she is hesitant to go home again until her major medical issues are improved and she feels better. She wants to avoid returning to the hospital again if at all possible. [] Past Medical History Allergies/Adverse Reactions: Allergies clindamycin [From Cleocin] Allergy [...] MedroxyPROGESTERone [Provera] 5 mg PO QHS 05/18/15 Past Medical History (Chronic Problems): Chronic Problems (Last Updated 08/17/18 @ 13:56 by Antonette Brown MD) Diastolic CHF, acute on chronic (Chronic) Acute kidney injury superimposed on chronic kidney [...] History of kidney cancer (Chronic) S/P nephrectomy Surgical History: - - Tonsillectomy, appendectomy, cholecystectomy, bilateral shoulder rotator cuff repair, right elbow fracture with surgery with pin in place, bilateral total knee replacement. Renal cell carcinoma, Surgery for SBO, Single salpingectomy and oophorectomy for ectopic . - *Family History Paternal Family History: Family [...] Colon cancer History Items: Heart Disease, Hypertension Smoking Status: Former smoker Tobacco Use: Non-smoker Review of Systems - Review of Systems General: Denies: Fever, Night Sweats, Fatigue Cardiovascular: Reports: Shortness of Breath. Denies: Chest Discomfort, Orthopnea, PND, Peripheral Edema, Palpitations, Lightheadedness, Dizziness, Near Syncope, Syncope Respiratory: Reports: Shortness of Breath. Denies: Cough, Sputum Production, Hemoptysis Gastrointestinal: Denies: Hematemesis, Hematochezia, Melena Genitourinary: Denies: Dysuria, Hematuria Skin: Denies: Rash Subjectve: This is an 83-year-old white female who appears to be resting comfortably at the moment in no acute distress. Objective: Vital Signs Temp Pulse Resp BP Pulse Ox 97.9 F 74 18 128/72 H 95 10/01/18 09:26 10/01/18 13:47 10/01/18 13:47 10/01/18 09:26 10/01/18 09:26 Oxygen Flow Rate (L/min) 2.5 Oxygen Delivery Method Nasal Cannula Weight: 230 lb 9.656 oz Body Mass Index (BMI) 37.2 Intake and Output for Last 24 Hours Intake Total 1080 / 1080 900 / 900 120 / 120 Output Total 1725 / 1725 2125 / 2125 925 / 925 Balance -645 / -645 -1225 / -1225 -805 / -805 General: Awake, Alert, Oriented x 3, Cooperative, No Acute Distress HEENT: Atraumatic, Normocephalic, PERRL, EOMI, Sclera Non Icteric Oral: Moist Mucosa Neck: Supple, Good ROM, No JVD Lungs: Rales - Right Base Cardiovascular: Regular Rhythm, Premature Ectopic Beats, Normal S1, Normal S2 Vascular: No Carotid Bruits Abdomen: Bowel Sounds Present, Soft, Non Tender Extremities: No Cyanosis, No Clubbing, Trace RLE Edema, Trace LLE Edema Psych/Mental Status: Appropriate 10/01/18 05:05: Sodium 142, Potassium 4.4, Chloride 109 H, Carbon Dioxide 25.0, Anion Gap 8, BUN 64 H, Creatinine 2.23 H, Est GFR (MDRD) Af Amer 27 L, Est GFR (MDRD) Non-Af 22 L, BUN/Creatinine Ratio 28.7 H, Glucose 123 H, Calcium 8.5 Rhythm:Sinus rhythm; nonsustained wide complex tachycardia compatible of nonsustained ventricular tachycardia EKG:Sinus rhythm/sinus bradycardia ECHO:09/21/2018: Left ventricle normal with an LVEF 65%; mildly dilated right ventricle; mild biatrial enlargement; moderate mitral annular calcification; trivial MR/TR; mild focal aortic valve calcification; calcified aortic root; estimated RV systolic pressure of 72 mmHg compatible pulmonary hypertension; decreased diastolic compliance Stress test: 04/2018: Pharmacologic stress nuclear imaging study: Myocardial perfusion findings compatible with body motion during image acquisition and at rest implanted cardio perfusion changes which appear to improve and or normalized following stress appearing compatible with body motion artifact and/or shifting soft tissue attenuation/artifact but no myocardial perfusion changes considered diagnostic for associated stress induced myocardial ischemia with a gated LVEF of 57%. CXR:Preliminary evaluation: Question of increased pulmonary vascularity: Please see official report Assessment/Plan 1. Nonsustained ventricular tachycardia The patient presents with that finding of nonsustained ventricular tachycardia. Apparently this is not new for her. She has recently initiated medical management. This included a amiodarone therapy. She has undergone noninvasive evaluation recently and in the fall of 2017 as noted above. At the present time she appears without any acute symptoms. She will continue to be monitored. Ideally it would not be unreasonable to consider further evaluation of her coronary anatomy with diagnostic cardiac catheterization despite her previous noninvasive findings. However there is hesitancy and doing so based on her underlying solitary kidney with acute and chronic renal insufficiency. This at the present time she will need to continue medical management. As part of her evaluation care her case was, with her permission, discussed with [facility] electrophysiology-Dr. Christophe Aguayo - who status post discussing the case recommended at this time avoidance of, based on the patient's past history or jose antonio dysrhythmias, beta blockers or calcium channel antagonist that would lead to bradycardia, and/instead increase her amiodarone therapy up to a total of 800 mg a day and follow her cardiac rate and rhythm. If she has recurrent jose antonio dysrhythmia events than she may need to be considered for permanent pacemaker backup. If she has continued ventricular dysrhythmia events then she may need to be considered for further EP evaluation. He did not recommend immediate EP evaluation or immediate ICD implantation at this time especially noting her previous noninvasive test results. 2. Wugto-jy-vvtsxog diastolic mediated CHF The patient will continue to be followed. She will continue medical management. Her medicines will need to be adjusted and around her vital signs and renal function, etc. to hopefully maintain a euvolemic state. 3. Pulmonary hypertension This may be secondary to a combination of the patient's cardiac condition but also her pulmonary condition with a history of COPD. She will need to continue medical management for this as best as possible. 4. Essential hypertension The patient's blood pressure can be monitored. She should continue medical therapy with avoidance of medications that would significantly negatively impact her cardiac rate as well as her renal function. 5. COPD The patient has a history of COPD. She will continue by Wound Care per internal medicine. 6. Renal insufficiency. The patient has qltcn-qv-wpbkahr renal insufficiency. Again there is hesitancy and performing any type of IV contrast related study based upon the concerns of IV contrast related neuropathy-especially noting the patient has only 1 kidney. 7. UTI The patient will continue evaluation care for underlying neurologic issues such as UTI per internal medicine. This note was generated using a voice recognition system and there may be incorrect words, spelling or punctuation that were not noted when reviewing the office note prior to saving. 10/01/18 1444 <Electronically signed by Cornelius Mirza MD> Date Cornelius Mirza MD Cosigner Signature (if applicable): Date CC: Ferdinand Aleman MD; Antonette Brown; Cornelius Mirza MD; Poli Mendieta MD Signed BASIC METABOLIC Collected: 10/01/2018 Status: F Source: [place] PROFILE (BMP) 5:05 AM [facility] REPOSITORY TYPE CODE TESTS RESULT OUT OF RANGE REFERENCE UNITS LAB L501.0100 74-106 mg/dL High GLU 123 Result Comment: Fasting Glucose result from 100 to 125 mg/dL suggests IMPAIRED HOMEOSTASIS per A.D.A. criteria. Please note revised GLUCOSE reference range effective 2017. LAB L501.1000 7-18 mg/dL High BUN 64 LAB L501.1100 0.55-1.02 mg/dL High CREAT,SERUM 2.23 Result Comment: The validity of the calculated GFR AND GFRAA in patients over 70 years has not been determined. Clinical correlation is essential. LAB L501.1110 >60 mL/min Low EST GFR 22 Result Comment: Non- GFR Calc LAB L501.1115 >60 mL/min Low EST GFR - AA 27 Result Comment: GFR Calc LAB L501.1255 ml/min Normal Estimated CRCL 18.52 LAB L501.1300 10-20 RATIO High BUN/CRE 28.7 LAB L501.2200 8.5-10 mg/dL Normal .1 CA 8.5 LAB L501.5300 136-14 mmol/L Normal 5 NA 142 LAB L501.5600 3.5-5. mmol/L Normal 1 K 4.4 LAB L501.5900 98-107 mmol/L High CL 109 LAB L501.6100 21.0-3 mmol/L Normal 2.0 CO2 25.0 LAB L501.6200 5-15 Normal GAP 8 Performed By: #### L500.2500 #### [facility] [address] [place], [address] BASIC METABOLIC Collected: 09/30/2018 Status: F Source: [place] PROFILE ([facility]) 5:00 AM [facility] REPOSITORY TYPE CODE TESTS RESULT OUT OF RANGE REFERENCE UNITS LAB L501.0100 74-106 mg/dL Normal GLU 95 Result Comment: Please note revised GLUCOSE reference range effective 2017. LAB L501.1000 7-18 mg/dL High BUN 67 LAB L501.1100 0.55-1.02 mg/dL High CREAT,SERUM 2.48 Result Comment: The validity of the calculated GFR AND GFRAA in patients over 70 years has not been determined. Clinical correlation is essential. LAB L501.1110 >60 mL/min Low EST GFR 20 Result Comment: Non- GFR Calc LAB L501.1115 >60 mL/min Low EST GFR - AA 24 Result Comment: GFR Calc LAB L501.1255 ml/min Normal Estimated CRCL 16.65 LAB L501.1300 10-20 RATIO High BUN/CRE 27.0 LAB L501.2200 8.5-10 mg/dL Low .1 CA 8.2 LAB L501.5300 136-14 mmol/L Normal 5 NA 145 LAB L501.5600 3.5-5. mmol/L Normal 1 K 4.6 Result Comment: Slight Hemolysis, Result may be falsely increased. LAB L501.5900 98-107 mmol/L High CL 108 LAB L501.6100 21.0-32.0 mmol/L Normal CO2 29.0 LAB L501.6200 5-15 Normal 8 GAP Performed By: #### L500.2500, L501.5200 #### [facility] [address] [place], [address] MAGNESIUM Collected: 09/30/2018 Status: F Source: [place] 5:00 AM [facility] REPOSITORY TYPE CODE TESTS RESULT OUT OF RANGE REFERENCE UNITS LAB L501.5200 1.6-2.6 mg/dL Normal MG 2.0 Result Comment: Slight Hemolysis, Result may be falsely increased. Performed By: #### L500.2500, L501.5200 #### [facility] [address] [place], [address] CONSULTATION Observed: 09/29/2018 Status: F Source: [place] 9:29 AM [facility] REPOSITORY [facility] Medical Records Department [address] [place] [address] Consultation 09/29/18 0916 MR#: [id number] Acct: [id number] Name: MLIAGROS STEVENSON Rep #: [id number] : 1935 83 From: Ferdinand Aleman MD PCP: Poli Mendieta MD Status: ADM IN Y Location: [place] [address]1 Problem List (1) Acute kidney injury superimposed on chronic kidney disease Status: Chronic Consultation - Renal PCP/ Referring MD: Requesting physician: [] Primary care physician: Poli Mendieta MD - History of Present Illness History of Present Illness: The patient is a 83 year old F past medical history of 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 Patient was recently discharged from the hospital after she was treated for CHF decompensation along with acute kidney injury IN chronic kidney disease and hyperkalemia . Acute kidney injury in the previous admissions was contributed to cardiorenal syndrome . Patient improved with diuretics . Creatinine on discharge was 2.6 mg a deciliter . Patient was discharged with Bumex 2 mg twice a day . Patient states she has been doing well at home up until yesterday when she felt very weak and her body was about to give up . Patient presented to [facility] where her kidney function was found to be worse with a creatinine 2.9 mg a deciliter Along with UTI . Patient was given 1 L of normal saline and Rocephin and transferred to [facility] . Patient states she is feeling slightly better today but still weak . Heart rate was found to be low yesterday at 55 . Patient has been on amiodarone at home along with calcium channel bill diltiazem . No NSAIDs used , no dysuria , breathing stable . No chest pain Review of system : 12 systems review is negative except what mentioned in HPI [] - Allergies Allergies: Allergies clindamycin [From [...] - Current Medications Current Medications: Current Medications Hydrocodone Bitart/Acetaminophen ([place] 5mg-325mg) 1 tablet PO TID PRN PRN PRN Reason: PAIN Al Hydroxide/Mg Hydroxide (Mylanta Ii) 30 ml PO Q6H PRN PRN PRN Reason: Gastric burning Albuterol/Ipratropium (Duoneb) 3 ml INHALATION Q4H PRN PRN Reason: sob Albuterol/Ipratropium (Duoneb) 3 ml INHALATION Q6HWA.RT KARL Last Admin: 09/29/18 07:00 Dose: Not Given Aspirin (Aspirin) 325 mg PO DAILY@0800 [facility] Last Admin: 09/29/18 09:01 Dose: 325 mg Cholecalciferol (Vitamin D) 2,000 unit PO DAILY [facility] Last Admin: 09/29/18 09:01 Dose: 2,000 unit Heparin Sodium (Porcine) (Heparin Na) 5,000 unit SC Q12 [facility] Last Admin: 09/29/18 09:01 Dose: 5,000 unit Hydralazine HCl (Apresoline) 25 mg PO TID [facility] Last Admin: 09/29/18 07:29 Dose: 25 mg Ceftriaxone Sodium (Rocephin) 1 gm in 50 mls @ 100 mls/hr IV Q24H [facility] Last Admin: 09/29/18 09:00 Dose: 100 mls/hr Magnesium Hydroxide (Milk Of Magnesia) 30 ml PO DAILY PRN PRN Reason: Constipation Ondansetron HCl (Zofran) 4 mg IV Q8H PRN PRN PRN Reason: NAUSEA Zolpidem Tartrate (Ambien (Generic)) 5 mg PO [...] - Social History Smoking Status: Former smoker - Family History [...] Colon cancer History Items: Heart Disease, Hypertension Patient Problems: Active and Suspected Problems (Last Updated 08/17/18 @ 13:56 by Antonette Brown MD) Near syncope (Acute) UTI (urinary tract infection) (Acute) - Physical Exam General: Alert, Oriented x3 HEENT: Atraumatic Vital Signs Temp Pulse Resp BP Pulse Ox 97.8 F 75 18 124/74 H 97 09/29/18 07:08 09/29/18 08:07 09/29/18 08:07 09/29/18 07:29 09/29/18 08:07 Oxygen Flow Rate (L/min) 3 Oxygen Delivery Method Nasal Cannula Weight: 104.6 kg Body Mass Index (BMI) 37.2 Intake and Output for Last 24 Hours Intake Total 200 / 200 100 / 100 Output Total 150 / 150 300 / 300 Balance 50 / 50 -200 / -200 Laboratory Tests Past 24 Hrs Assessment/Plan All Active Problems (Last Updated 08/17/18 @ 13:56 by Antonette Brown MD) Near syncope (Acute) UTI (urinary tract infection) (Acute) 1-acute kidney injury on chronic kidney disease. 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 Baseline creatinine seems around 1.6. Patient had history of recent AK I from cardiorenal syndrome. Acute kidney injury for this admission is most probably prerenal from hemodynamic instability along with diuretics. Creatinine peaked at 2.9 mg a deciliter. Creatinine improved to the previous level at 2.6 with holding diuretics and IV fluid. I will restart the patient on lower dose of Bumex 1 mg twice a day. I will continue to monitor electrolytes and kidney function closely while on diuretics. Please keep mean arterial pressure more than 65. Avoid NSAIDs and nephrotoxic. 2-hypertension: Blood pressure is well controlled. I will start diuretics to avoid pressor patient I will continue the same dose of hydralazine. 3-CHF with preserved ejection fraction: Compensated now. I will start diuretics. 4-UTI: Antibiotics as per the primary service physician. Thank you for the consult. Renal team will continue to follow 09/29/18 0929 <Electronically signed by Ferdinand Aleman MD> Date Ferdinand Aleman MD Cosigner Signature (if applicable): Date CC: Ferdinand Aleman MD; Antonette Brown; Poli Mendieta MD Signed BASIC METABOLIC Collected: 09/29/2018 Status: F Source: [place] PROFILE ([facility]) 5:20 AM [facility] REPOSITORY TYPE CODE TESTS RESULT OUT OF RANGE REFERENCE UNITS LAB L501.0100 74-106 mg/dL Normal GLU 98 Result Comment: Please note revised GLUCOSE reference range effective 2017. LAB L501.1000 7-18 mg/dL High BUN 76 LAB L501.1100 0.55-1.02 mg/dL High CREAT,SERUM 2.62 Result Comment: The validity of the calculated GFR AND GFRAA in patients over 70 years has not been determined. Clinical correlation is essential. LAB L501.1110 >60 mL/min Low EST GFR 19 Result Comment: Non- GFR Calc LAB L501.1115 >60 mL/min Low EST GFR - AA 23 Result Comment: GFR Calc LAB L501.1255 ml/min Normal Estimated CRCL 15.76 LAB L501.1300 10-20 RATIO High BUN/CRE 29.0 LAB L501.2200 8.5-10 mg/dL Low .1 CA 8.0 LAB L501.5300 136-14 mmol/L Normal 5 NA 145 LAB L501.5600 3.5-5. mmol/L Low 1 K 3.4 LAB L501.5900 98-107 mmol/L Normal CL 105 LAB L501.6100 21.0-3 mmol/L Normal 2.0 CO2 31.0 LAB L501.6200 5-15 Normal GAP 9 Performed By: #### L500.2500 #### [facility] [address] [place], [address] CBC W/DIFF, AUTOMATED Collected: 09/29/2018 Status: F Source: [place] 5:20 AM [facility] REPOSITORY TYPE CODE TESTS RESULT OUT OF RANGE REFERENCE UNITS LAB L100.1000 4.4-11.0 K/mm3 Normal WBC 8.1 LAB L100.1200 4.2-5.4 M/mm3 Normal RBC 4.39 LAB L100.1300 12.0-15.0 g/dl Normal HGB 12.5 LAB L100.1400 37-47 % Normal HCT 39.0 LAB L100.1500 81-99 fL Normal MCV 88.8 LAB L100.1600 27.0-32.0 pg Normal MCH 28.5 LAB L100.1700 32-36 g/gl Normal MCHC 32.1 LAB L100.1810 11.6-14.6 % High RDW CV 15.6 LAB L100.1820 35.1-43.9 fl High RDW SD 49.8 LAB L100.1900 150-450 K/mm3 Normal PLT 219 LAB L100.2000 6.2-12.0 fl Normal MPV 10.9 LAB L100.2100 47-70 % Normal NEUT% 67.8 LAB L100.2200 19-41 % Normal LY% 21.1 LAB L100.2300 0-10 % Normal MONO% 8.7 LAB L100.2400 0-5 % Normal EO% 1.5 LAB L100.2500 0-1 % Normal BASO% 0.4 LAB L100.2550 0.0-0.9 % Normal IM GRAN % 0.500 Result Comment: IG% - Immature Granulocytes (promyelocytes, myelocytes and metamyelocytes) > 1% indicates that a LEFT SHIFT is Present. LAB L100.2620 2.0-7.7 X10 3/uL Normal Absolute Neut 5.5 LAB L100.2720 0.83-4.51 X10 3/ul Normal Absolute Lymph 1.71 Performed By: #### L100.0100 #### [facility] [address] [place], [address] URINALYSIS, COMPLETE Collected: 09/28/2018 Status: F Source: [place] 9:15 PM [facility] REPOSITORY Order Comment: Has pt arrived? Y [...] URINE SEEN Performed By: #### L400.0001 #### [facility] [address] [place], [address] Observed: 09/28/2018 Status: F Source: [place] CULTURE, URINE 9:15 PM [facility] REPOSITORY Has pt arrived? Y Urine Culture Below infection level. ORGANISM 1: Mixed Gram Positive Organisms [place] Count <1000 Performed By: #### M100.0650 #### [facility] [address] [place], [address] HISTORY AND PHYSICAL Observed: 09/28/2018 Status: F Source: [place] EXAM 9:05 PM [facility] REPOSITORY [facility] Medical Records Department [address] [place] [address] History and Physical 09/28/182027 MR#: [id number] Acct: [id number] Name: MILAGROS STEVENSON Rep #: [id number] : 1935 83 From: John Vidal MD PCP: Poli Mendieta MD Status: ADM IN Y Location: [place] [address] Problem List (1) Near syncope Status: Acute [...] arthritis. She is a direct transfer from [facility] for management of nonspecific symptoms including UTI [...] arthritis. She is a direct transfer from [facility] ER for management of nonspecific symptoms including [...] 1 L of normal saline in the [facility] ER. Chest x-ray PA and lateral ordered. Troponin negative. N- terminal proBNP 6219. 2. Asymptomatic bacteriuria/possible UTI: Repeat UA and urine culture ordered. Continue empirically Rocephin started in [facility] ER. 3. Arrhythmia: Sinus bradycardia, NSVT: EKG and altered mental orbital ER shows sinus bradycardia at 54 bpm, normal OR interval, normal QRS interval nonspecific ST-T changes. [...] RVSP 72 mmHg. Patient was seen by reformatory attendant was treated with Lasix drip and Zaroxolyn for 3 days and then switched to oral bumetanide 2 mg twice daily. BUN/creatinine 80/2.93 is increased from her baseline. Hold diuretics and repeat BMP tomorrow a.m. Follow- up chest x-ray. 5. Acute kidney injury on CKD stage III, possible secondary to diuretics: Hold diuretics and follow-up BMP. consult [facility] who saw her last time. 6. [...] g% Code Visit Inpatient E AND M: 45601 Init Hosp L3 09/28/185 <Electronically signed by John Vidal MD> Date John Vidal MD Cosigner Signature: Date (if applicable) CC: John Vidal MD; Poli Mendieta MD Signed CHEST PA AND LATERAL Observed: 09/28/2018 Status: F Source: [place] 8:36 PM [facility] REPOSITORY [facility] [place] [address] Chest PA and Lateral MR#: [id number] Acct: [id number] Name: MILAGROS STEVENSON Rep #: [id number] : 1935 F 83 From: Yair Gage MD PCP: Poli Mendieta MD Status: ADM IN Study: Chest PA and Lateral Date of Exam: 09/28/18 Exam# [id number] Ordering Dr: John Vidal MD STUDY: X-RAY [...] CC: John Vidal MD; Poli Mendieta MD Armature And Rotor Winder: Signed Observed: 09/28/2018 Status: F Source: [facility] 2:43 PM [facility] REPOSITORY . MICRO - Microbiology PROCEDURE: Urine Culture [*1] SOURCE: Urine, Clean Catch BODY SITE: COLLECTED DATE/TIME: 09/28/2018 14:43 EST RECEIVED DATE/TIME: 09/28/2018 21:09 EST START DATE/TIME: 09/28/2018 21:10 EST FREE TEXT SOURCE: FINAL REPORTS Final Report [] Verified Date/Time/Personnel: 09/30/2018 08:44 EST >100,000 organisms per mL Escherichia coli PRELIMINARY REPORTS Preliminary Report [] Verified Date/Time/Personnel: 09/29/2018 09:52 EST >100,000 organisms per mL Gram Negative Rods Final identification and STEPHANIE to follow. SUSCEPTIBILITY RESULTS Escherichia coli Antibiotic STEPHANIE Dilutn STEPHANIE Interp Ampicillin >16 Resistant Cefazolin <=8 Susceptible Ciprofloxacin <=1 Susceptible Gentamicin <=4 Susceptible Levofloxacin <=2 Susceptible Meropenem <=1 Susceptible Nitrofurantoin <=32 Susceptible Piperacillin/ <=16 Susceptible Tazobactam Trimethoprim/ >2/38 Resistant Sulfa Performing Locations *1: This test was performed at: [address], [facility] , [facility] Performed By: #### CUR #### [address] [address] UA Collected: 09/28/2018 Status: F Source: [facility] 1:23 PM [facility] REPOSITORY TYPE CODE TESTS RESULT OUT OF [...] Trace Performed By: #### UA, UAMICAO #### [place] [address] .URINALYSIS MICROSCOPIC Collected: 09/28/2018 Status: F Source: [facility] 1:23 [facility] REPOSITORY TYPE CODE TESTS RESULT OUT OF RANGE REFERENCE UNITS LAB WBCUA(LOIN None Seen /hpf C) Unknown UA WBC 5-10 LAB RBCUA(LOIN None Seen /hpf C) UA RBC None Seen LAB EPIUA(LOIN None Seen /hpf C) Unknown UA Squam Epithelial 0-5 LAB BACUA(LOIN /hpf C) Unknown UA Bacteria 4+ Performed By: #### UA, UAMICAO #### [place] [address] MG Collected: 09/28/2018 Status: F Source: [facility] 1:06 [facility] REPOSITORY TYPE CODE TESTS RESULT OUT OF REFERENCE UNITS RANGE LAB MG(LOINC) 1.8-2.4 mg/dL Magnesium Lvl 1.8 Performed By: #### TROP, PBNP, MG, CMP, GFR #### [place] [address] #### CBC, DIFF, MORPH #### [address] [address] CMP Collected: 09/28/2018 Status: F Source: [facility] 1:06 [facility] REPOSITORY Order Comment: Hemolysed - please recollect [...] #### TROP, PBNP, MG, CMP, GFR #### [address] [address] #### CBC, DIFF, MORPH #### [address] [address] .GFR Collected: 09/28/2018 Status: F Source: [facility] 1:06 [facility] REPOSIT[facility] TYPE CODE TESTS RESULT OUT OF REFERENCE UNITS RANGE LAB GFRAA(LOINC ml/min/1.73 ) sqm GFR 19 [place] Result Comment: GFR Population mean for , [...] #### TROP, PBNP, MG, CMP, GFR #### [address] [address] #### CBC, DIFF, MORPH #### [address] [address] XR CHEST 1 VIEW Observed: 09/28/2018 Status: F Source: [facility] 12:36 PM [facility] REPOSITORY ORIGINAL XR CHEST 1 VIEW PORTABLE [...] PM TROP Collected: 09/28/2018 Status: F Source: [facility] [facility] 12:29 [facility] REPOSITORY TYPE CODE TESTS RESULT OUT OF REFERENCE UNITS RANGE LAB TROP(LOINC) 0.000-0.040 ng/mL Troponin 0.032 Result Comment: Troponin I reference range: 0.00-0.040 ng/mL Negative and non-diagnostic. >0.040 ng/mL Consistent with cardiac damage, increased clinical risk and possibility of myocardial infarction. Serial measurements, a rise & fall in test results, clinical history, appropriate symptoms and/or ECG changes may help assess possibility of NC. *Other non-acute coronary syndrome conditions such as CHF, myocarditis, pulmonary emboli, sepsis and cardiac surgery could result in myocardial damage and increased troponin levels. Performed By: #### TROP, PBNP, MG, CMP, GFR #### [place] [address] #### CBC, DIFF, MORPH #### [address] [address] PBNP Collected: 09/28/2018 Status: F Source: [facility] [facility] 12:29 [facility] TYPE CODE TESTS RESULT OUT OF REFERENCE UNITS RANGE LAB PBNP(LOINC) 0-450 pg/mL High N-Terminal 6219 proBNP Result Comment: NT-proBNP results of less than 300 pg/mL effectively rules out acute congestive heart failure with 99% negative predictive value. Performed By: #### TROP, PBNP, MG, CMP, GFR #### [place] [address] #### CBC, DIFF, MORPH #### [address] [address] CBC Collected: 09/28/2018 Status: F Source: [facility] 12:29 [facility] REPOSITORY TYPE CODE TESTS RESULT OUT OF [...] #### TROP, PBNP, MG, CMP, GFR #### [place] [address] #### CBC, DIFF, MORPH #### [address] [address] .MANUAL DIFF Collected: 09/28/2018 Status: F Source: [facility] 12:29 PM [facility] REPOSITORY TYPE CODE TESTS RESULT OUT OF [...] #### TROP, PBNP, MG, CMP, GFR #### [address] [address] #### CBC, DIFF, MORPH #### [address] [address] .MORPH Collected: 09/28/2018 Status: F Source: [facility] 12:29 PM [facility] REPOSITORY TYPE CODE TESTS RESULT OUT OF REFERENCE UNITS RANGE LAB PLTE(LOINC) Platelet Normal Estimate LAB TGR(LOINC) Toxic Gran Slight Performed By: #### TROP, PBNP, MG, CMP, GFR #### [facility] [address] [place] [address] #### CBC, DIFF, MORPH #### [facility] [address] [place], [place] [address] DISCHARGE SUMMARY Observed: 2018 Status: F Source: [place] 6:14 PM [facility] REPOSITORY [facility] Medical Records Department [address] [place] [address] [place] [address] Discharge Summary 09/23/18 1027 MR#: [id number] Acct: [id number] Name: MILAGROS STEVENSON Rep #: [id number] : 1935 83 From: Wendy Cummings WEAVER HAND LOOM-C PCP: Poli Mendieta MD Status: DIS IN Y Location: [facility] [id number] <Wendy Cummings - Last Filed: 09/23/18 10:50> [...] 2 mg twice daily. Follow-up with Dr. Mirza in 1-2 weeks. Pulmonary pressures increased from [...] D3] 2,000 unit PO DAILY 09/15/18 Hydrocodone/Acetaminophen [[place] 5-325 Tablet] 1 tab PO TID PRN PRN 09/15/18 hydrALAZINE [Apresoline] 25 mg PO TID 01/09/19 Amiodarone HCl [Cordarone] 200 mg PO BID [...] This patient was seen in conjunction with Wendy SEGOVIA. I have independently interviewed and examined the [...] MR. LA moderately enlarged. Patient seen by reformatory attendant. Started on Lasix drip and Zaroxolyn. Dr. [...] 200 mg twice daily after discussion with jig fitter. Patient follows Dr. vidal. Plan of care [...] instructions. I have discussed my assessment with WEAVER HAND LOOMWnedy and orders have been reviewed. [] Subjective: [...] 11 Code Visit Inpatient E AND M: 10581 Disch Hosp 09/23/18 1051 <Electronically signed by Wendy CRESPO> Date Wendy CRESPO 09/23/181813<Electronically signed by John Vidal MD> Cosigner Signature (if applicable): Date John Vidal MD CC: ZAK Cummings; John Vidal MD; Poli Mendieta MD Signed DISCHARGE INSTRUCTION Observed: 2018 Status: F Source: [place] 10:33 AM [facility] REPOSITORY [facility] Medical Records Department [address] [place] [address] Instructions for Home/Discharge Instructions 09/23/18 1022 MR#: [id number] Acct: [id number] Name: MILAGROS STEVENSON Rep #: [id number] : 1935 83 From: Wendy CRESPO PCP: Poli Mendieta MD Status: ADM IN ADDENDUM by WEAVER HAND LOOMThea Cummings on 09/23/18 at [address] Mirza, follow up with Dr. Mirza in 1-2 weeks. 09/23/18 1033 Date Wendy [...] D3] 2,000 unit PO DAILY 09/15/18 Hydrocodone/Acetaminophen [[place] 5-325 Tablet] 1 tab PO TID PRN [...] BID #60 tablet Primary Care Physician: Poli Mednieta MD [Primary Care Provider] - Please follow [...] Abdiel Mosley DO When: As scheduled, 10/12/18 Proposed Discharge Date: 09/23/18 09/23/18 1027 <Electronically signed by Wendy CRESPO> Date Wendy CRESPO CC: Ferdinand Aleman MD; Poli Mendieta MD Signed BASIC METABOLIC Collected: 2018 Status: F Source: [place] PROFILE (BMP) 5:40 AM [facility] REPOSITORY TYPE CODE TESTS RESULT OUT OF [...] GAP 11 Performed By: #### L500.2500 #### [facility] [address] [place], [address] BASIC METABOLIC Collected: 09/22/2018 Status: F Source: [place] PROFILE ([facility]) 5:10 AM [facility] REPOSITORY TYPE CODE TESTS RESULT OUT OF [...] GAP 11 Performed By: #### L500.2500 #### [facility] [address] [facility] [place], [address] MAGNESIUM Collected: 09/22/2018 Status: F Source: [place] 5:10 AM [facility] REPOSITORY TYPE CODE TESTS RESULT OUT OF RANGE REFERENCE UNITS LAB L501.5200 1.6-2.6 mg/dL Normal MG 2.5 Performed By: #### L501.5200 #### [facility] [address] [facility] [place], [address] ECHOCARDIOGRAM COMPLETE Observed: 09/21/2018 Status: F Source: [place] 3:36 PM [facility] REPOSITORY [facility] Cardiovascular Services [address] [place] [address] Echo Complete 09/21/18 1409 MR#: [id number] Acct: [id number] Name: MILAGROS STEVENSON Rep #: [id number] : 1935 82 From: Cornelius Mirza MD Attending Dr: John Vidal MD Status: [...] Physician: Poli Mendieta Performed By: Caroline Howell, RDCS, RVT 09/21/18 1536 Date Cornelius Mirza MD CC: JOYCE Ash; John Vidal MD; Poli Mendieta MD Date Dictated: 09/21/18 1409 Date Transcribed: 09/21/181535 Armature And Rotor Winder: Signed BASIC METABOLIC Collected: 09/21/2018 Status: F Source: [place] PROFILE (BMP) 6:50 AM [facility] REPOSITORY TYPE CODE TESTS RESULT OUT OF [...] GAP 9 Performed By: #### L500.2500 #### [facility] [address] [place], [address] 12 LEAD ELECTROCARDIOGRAM Observed: 09/20/2018 Status: F Source: [place] 10:20 AM [facility] REPOSITORY [facility] Cardiovascular Services [address] [place] [address] 12 Lead EKG 09/16/18 0520 MR#: [id number] Acct: [id number] Name: GRAHAMMILAGROS Champion Rep #: [id number] : 1935 82 From: Alistair Vidal MD Attending Dr: John Vidal MD Status: ADM IN Ordering Dr: Antonette Brown MD Date: 09/16/18 Location: [facility] Sex: F C Admitted: 09/15/18 Test Reason [...] COMPARISON REQUIRED, DATA IS UNCONFIRMED Confirmed by CLIVE SHELDON, ALISTAIR ([id number]), dictionary editor SUNSHINE STODDARD ([id number]) on 09/20/2018 10:20:35 AM Referred By: DR BROWN Confirmed By:ALISTAIR VIDAL MD 09/20/18 1020 Date Alistair Vidal MD CC: Antonette Brown; John Vidal MD; Poli Mendieta MD Signed 12 LEAD ELECTROCARDIOGRAM Observed: 09/20/2018 Status: F Source: [place] 10:03 AM [facility] REPOSITORY [facility] Cardiovascular Services [address] [place] [address] 12 Lead EKG 09/15/18 1153 MR#: [id number] Acct: [id number] Name: MILAGROS STEVENSON Rep #: [id number] : 1935 82 From: Alistair Vidal MD Attending Dr: John Vidal MD Status: ADM IN Ordering Dr: Dario Roy MD Date: 09/15/18 Location: [facility] Sex: F C Admitted: 09/15/18 Test Reason [...] ECG Confirmed by CLIVE SHELDON, ALISTAIR ([id number]), dictionary editor SUNSHINE STODDARD ([id number]) on 09/20/2018 10:02:35 AM Referred By: ALBERT Confirmed By:ALISTAIR VIDAL MD 09/20/18 1002 Date Alistair Vidal MD CC: Dario Roy MD; John Vidal MD; Poli Mendieta MD Signed CHEST PA AND LATERAL Observed: 09/20/2018 Status: F Source: [place] 8:45 AM [facility] Imaging Services [address] [place] [address] Chest PA and Lateral MR#: [id number] Acct: [id number] Name: MILAGROS STEVENSON Rep #: [id number] : 1935 F 82 From: Bianca Rutherford MD PCP: Poli Mendieta MD Status: ADM IN Study: Chest PA and Lateral Date of Exam: 09/20/18 Exam# [id number] Ordering Dr: Mat Ash STUDY: X-RAY CHEST [...] , CC: JOYCE Ash; Poli Mendieta MD Armature And Rotor Winder: Signed BASIC METABOLIC Collected: 09/20/2018 Status: F Source: [place] PROFILE (BMP) 4:45 AM [facility] REPOSITORY TYPE CODE TESTS RESULT OUT OF [...] GAP 12 Performed By: #### L500.2500 #### [facility] [address] [place], [address] CONSULTATION Observed: 09/19/2018 Status: F Source: [place] 4:12 PM [facility] REPOSITORY [facility] Medical Records Department [address] [place] [address] Consultation 09/19/18 1605 MR#: [id number] Acct: [id number] Name: MILAGROS STEVENSON Rep #: [id number] : 1935 82 From: Ferdinand Aleman MD PCP: Poli Mendieta MD Status: ADM IN Location: [place] [address] Problem List (1) Acute kidney injury superimposed [...] 09/16/18 14:53 Dose: 650 mg Hydrocodone Bitart/Acetaminophen ([place] 5mg-325mg) 1 tablet PO TID PRN PRN PRN Reason: PAIN Albuterol Sulfate (Ventolin Aerosols) 2.5 mg INHALATION Q4H PRN PRN PRN Reason: Shortness of breath, wheezing Albuterol/Ipratropium (Duoneb) 3 ml INHALATION Q6H.RT [facility] Last Admin: 09/19/18 13:04 Dose: 3 ml Amlodipine Besylate (Norvasc) 10 mg PO DAILY [facility] Last Admin: 09/19/18 10:34 Dose: 10 mg Aspirin (Aspirin) 325 mg PO DAILY@0800 [facility] Last Admin: 09/19/18 08:53 Dose: 325 mg Diltiazem HCl (Cardizem) 60 mg PO Q8 [facility] Last Admin: 09/19/18 14:18 Dose: 60 mg Estrogens Conjugated (Premarin) 0.3 mg PO QHS [facility] Last Admin: 09/18/18 21:39 Dose: 0.3 mg Furosemide (Lasix) 60 mg IV BID@1000,1800 [facility] Heparin Sodium (Porcine) (Heparin Na) 5,000 unit SC Q8 [facility] Last Admin: 09/19/18 14:18 Dose: 5,000 unit Hydralazine HCl (Apresoline) 25 mg PO TID [facility] Last Admin: 09/19/18 14:18 Dose: 25 mg [...] 500 / 500 400 / 400 Balance 20 / 20 660 / 660 80 / [...] consult. We will continue to follow 09/19/18 1612 <Electronically signed by Ferdinand Aleman MD> Date Ferdinand Aleman MD Cosigner Signature (if applicable): Date CC: Ferdinand Aleman MD; Poli Mendieta MD Signed BASIC METABOLIC Collected: 09/19/2018 Status: F Source: [place] PROFILE (BMP) 5:10 AM [facility] REPOSITORY TYPE CODE TESTS RESULT OUT OF [...] GAP 12 Performed By: #### L500.2500 #### [facility] [address] [place], [place], [address] BASIC METABOLIC Collected: 09/18/2018 Status: F Source: [place] PROFILE (BMP) 5:12 AM [facility] REPOSITORY TYPE CODE TESTS RESULT OUT OF [...] GAP 11 Performed By: #### L500.2500 #### [facility] [address] [place], [place], [address] BASIC METABOLIC Collected: 09/17/2018 Status: F Source: [place] PROFILE (BMP) 5:10 AM [facility] REPOSITORY TYPE CODE TESTS RESULT OUT OF [...] 11 Performed By: #### L500.2500, L501.5200 #### [facility] [address] [facility] [place], [place], [address] MAGNESIUM Collected: 09/17/2018 Status: F Source: [place] 5:10 AM [facility] REPOSITORY TYPE CODE TESTS RESULT OUT OF RANGE REFERENCE UNITS LAB L501.5200 1.6-2.6 mg/dL Normal MG 2.1 Performed By: #### L500.2500, L501.5200 #### [facility] [address] [place], [address] CBC W/DIFF, AUTOMATED Collected: 09/16/2018 Status: F Source: [place] 6:45 AM [facility] REPOSITORY TYPE CODE TESTS RESULT OUT OF [...] Lymph 1.17 Performed By: #### L100.0100 #### [facility] [address] [place], [address] BASIC METABOLIC Collected: 09/16/2018 Status: F Source: [place] PROFILE (BMP) 6:45 AM [facility] REPOSITORY TYPE CODE TESTS RESULT OUT OF [...] 10 Performed By: #### L500.2500, L501.5200 #### [facility] [address] [place], [place], [address] MAGNESIUM Collected: 09/16/2018 Status: F Source: [place] 6:45 AM [facility] REPOSITORY TYPE CODE TESTS RESULT OUT OF RANGE REFERENCE UNITS LAB L501.5200 1.6-2.6 mg/dL Normal MG 2.1 Performed By: #### L500.2500, L501.5200 #### [facility] [address] [place], [place], [address] URIC ACID Collected: 09/16/2018 Status: F Source: [place] 6:45 AM [facility] REPOSITORY Order Comment: Comments: add on TYPE CODE TESTS RESULT OUT OF RANGE REFERENCE UNITS LAB L501.1400 2.6-6.0 mg/dL High URIC 10.8 Result Comment: The drugs N-Acetylcysteine and Metamizole may falsely depress this assay. Performed By: #### L501.1400 #### [facility] [address] [place], [place], [address] TROPONIN-I Collected: 09/15/2018 Status: F Source: [place] 5:59 PM [facility] REPOSITORY Order Comment: 'TROP' Serial specimen #1, #2 or #3: 3 TYPE CODE TESTS RESULT OUT OF RANGE REFERENCE UNITS LAB L501.4010 <0.045 ng/mL High 0.056 TROPONIN-I Result Comment: TROPONIN-I EXPECTED VALUES <0.045 Negative 0.045 - 0.590 Consistent with Cardiac Damage > OR = 0.600 Critical Value Not every elevated troponin is indicative of NC. These values should be used with clinical judgement in examining the patient's clinical picture for diagnosis. To establish a diagnosis of NC versus myocardial injury, there must be a demonstrated rise and/or fall in the troponin values, in addition to ischemic symptoms, EKG changes, new regional wall motion abnormality, and/or angiographical evidence. PLEASE NOTE: REFERENCE RANGES EDITED 18 Performed By: #### L501.4010 #### [facility] [address] [facility] [place], [address] EMERGENCY DEPARTMENT Observed: 09/15/2018 Status: F Source: [place] SUMMARY 4:57 PM [facility] REPOSITORY [facility] Medical Records Department [address] [place] [address] Emergency Department Summary 09/15/18 1138 MR#: [id number] Acct: [id number] Name: MILAGROS STEVENSON Rep #: [id number] : 1935 82 From: Dario Roy MD [...] renal insufficiency This note was generated with Mimetas dictation software. It may contain incorrect words, [...] problems, contact your Primary Care Provider. Call [facility] ([phone]) or report to the closest Emergency Room. Call 911 if necessary. 09/15/18 6761 <Electronically signed by Dario Roy MD> Date Dario Roy MD Cosigner Signature (If Indicated): Date CC: Poli Mendieta MD TROPONIN-I Collected: 09/15/2018 Status: F Source: [place] 3:33 PM [facility] REPOSITORY Order Comment: 'TROP' Serial specimen #1, #2 or #3: 2 TYPE CODE TESTS RESULT OUT OF RANGE REFERENCE UNITS LAB L501.4010 <0.045 ng/mL High 0.051 TROPONIN-I Result Comment: TROPONIN-I EXPECTED VALUES <0.045 Negative 0.045 - 0.590 Consistent with Cardiac Damage > OR = 0.600 Critical Value Not every elevated troponin is indicative of NC. These values should be used with clinical judgement in examining the patient's clinical picture for diagnosis. To establish a diagnosis of NC versus myocardial injury, there must be a demonstrated rise and/or fall in the troponin values, in addition to ischemic symptoms, EKG changes, new regional wall motion abnormality, and/or angiographical evidence. PLEASE NOTE: REFERENCE RANGES EDITED 18 Performed By: #### L501.4010 #### [facility] [address] [facility] [place], [address] HISTORY AND PHYSICAL Observed: 09/15/2018 Status: F Source: [place] EXAM 1:43 PM [facility] REPOSITORY [facility] Medical Records Department [address] [place] [address] History and Physical 09/15/18 1318 MR#: [id number] Acct: [id number] Name: MILAGROS STEVENSON Rep #: [id number] : 1935 82 From: Antonette Brown MD PCP: Poli Mendieta MD Status: ADM IN Location: [address] Problem List (1) COPD (chronic obstructive pulmonary [...] Subcu heparin. This note was generated with Mimetas dictation software. It may contain incorrect words, spelling, and punctuation that were not noted in checking the note before signing. Code Visit Inpatient E AND M: 24973 Init Hosp L3 09/15/18 1343 <Electronically signed by Antonette Brown MD> Date Antonette Brown MD Cosigner Signature: Date (if applicable) CC: Antonette Brown; Poli Mendieta MD Signed CBC W/DIFF, AUTOMATED Collected: 09/15/2018 Status: F Source: [place] 12:05 PM [facility] REPOSITORY TYPE CODE TESTS RESULT OUT OF [...] Lymph 0.89 Performed By: #### L100.0100 #### [facility] [address] [facility] [place], [address] PROTHROMBIN TIME W/INR Collected: 09/15/2018 Status: F Source: [place] 12:05 PM [facility] REPOSITORY TYPE CODE TESTS RESULT OUT OF RANGE REFERENCE UNITS LAB L300.4150 11.7-14.9 SECONDS Normal PROTIME 14.5 LAB L300.4200 Normal INR 1.1 Performed By: #### L300.3900 #### [facility] [address] [facility] [place], [address] BASIC METABOLIC Collected: 09/15/2018 Status: F Source: [place] PROFILE (BMP) 12:05 PM [facility] REPOSITORY TYPE CODE TESTS RESULT OUT OF [...] 10 Performed By: #### L500.2500, L501.4010 #### [facility] [address] [facility] [place], [place], [address] TROPONIN-I Collected: 09/15/2018 Status: F Source: [place] 12:05 PM [facility] REPOSITORY TYPE CODE TESTS RESULT OUT OF RANGE REFERENCE UNITS LAB L501.4010 <0.045 ng/mL Normal 0.038 TROPONIN-I Result Comment: TROPONIN-I EXPECTED VALUES <0.045 Negative 0.045 - 0.590 Consistent with Cardiac Damage > OR = 0.600 Critical Value Not every elevated troponin is indicative of NC. These values should be used with clinical judgement in examining the patient's clinical picture for diagnosis. To establish a diagnosis of NC versus myocardial injury, there must be a demonstrated rise and/or fall in the troponin values, in addition to ischemic symptoms, EKG changes, new regional wall motion abnormality, and/or angiographical evidence. PLEASE NOTE: REFERENCE RANGES EDITED 18 Performed By: #### L500.2500, L501.4010 #### [facility] [address] [place], [place], [address] BNP,B-TYPE NATRIURETIC Collected: 09/15/2018 Status: F Source: [place] PEPTIDE 12:05 PM [facility] REPOSITORY TYPE CODE TESTS RESULT OUT OF RANGE REFERENCE UNITS LAB L503.6620 0-100 pg/mL High B-TYPE 618.3 KAVIN PEP Performed By: #### L503.6620 #### [facility] [address] [place], [address] CHEST PA AND LATERAL Observed: 09/15/2018 Status: F Source: [place] 11:38 AM [facility] REPOSITORY [facility] Imaging Services [address] [place] [address] Chest PA and Lateral MR#: [id number] Acct: [id number] Name: MILAGROS STEVENSON Rep #: [id number] : 1935 F 82 From: Alexis Millan MD PCP: Poli Mendieta MD Status: REG ER Study: Chest PA and Lateral Date of Exam: 09/15/18 Exam# [id number] Ordering Dr: Dario Roy MD STUDY: X-RAY [...] CC: Dario Roy MD; Poli Mendieta MD Armature And Rotor Winder: Signed RFP Collected: 09/10/2018 Status: F Source: [place] 11:58 AM [facility] REPOSITORY TYPE CODE TESTS [...] 3.2 Performed By: #### RFP, GFR #### [place] [address] .GFR Collected: 09/10/2018 Status: F Source: [facility] 11:58 AM [facility] REPOSITORY TYPE CODE TESTS RESULT OUT OF REFERENCE UNITS RANGE LAB GFRAA(LOINC ml/min/1.73 ) sqm GFR 41 Brazilian Result Comment: GFR Population mean for , [...] meters Performed By: #### RFP, GFR #### [place] [address] BMP Collected: 09/01/2018 Status: F Source: [place] 10:58 AM [facility] REPOSITORY TYPE CODE TESTS RESULT OUT OF [...] 9.1 Performed By: #### BMP, GFR #### [address] [address] .GFR Collected: 09/01/2018 Status: F Source: [facility] 10:58 AM [facility] REPOSITORY TYPE CODE TESTS RESULT OUT OF REFERENCE UNITS RANGE LAB GFRAA(LOINC ml/min/1.73 ) sqm GFR 41 [place] Result Comment: GFR Population mean for , [...] meters Performed By: #### BMP, GFR #### [place] [address] 12 LEAD ELECTROCARDIOGRAM Observed: 08/20/2018 Status: F Source: [place] 11:05 AM [facility] REPOSITORY [facility] Cardiovascular Services [address] [place] [address] 12 Lead EKG 08/17/18 0713 MR#: [id number] Acct: [id number] Name: MILAGROS STEVENSON Rep #: [id number] : 1935 82 From: Alistair Vidal MD Attending Dr: Antonette Brown Status: DIS IN Ordering Dr: Violeta Dowling DO Date: 08/17/18 Location: [facility] Sex: F C Admitted: 08/16/18 Test Reason [...] COMPARISON REQUIRED, DATA IS UNCONFIRMED Confirmed by CLIVE MD, ALISTAIR ([id number]), dictionary editor SUNSHINE STODDARD ([id number]) on 08/20/2018 11:05:25 AM Referred By: Confirmed By:ALISTAIR VIDAL MD 08/20/18 1105 Date Alistair Vidal MD CC: Sarah Dowling; Antonette Brown; Poli Mendieta MD Signed 12 LEAD ELECTROCARDIOGRAM Observed: 08/20/2018 Status: F Source: [place] 10:37 AM [facility] REPOSITORY [facility] Cardiovascular Services [address] [place], [place] [address] [address] 12 Lead EKG 08/16/18 1453 MR#: [id number] Acct: [id number] Name: MILAGROS STEVENSON Rep #: [id number] : 1935 82 From: Alistair Vidal MD Attending Dr: Antonette Brown Status: DIS IN Ordering Dr: Claudia De León MD Date: 08/16/18 Location: [facility] Sex: F C Admitted: 08/16/18 Test Reason : SOB Blood Pressure : / mmHG Vent. Rate : 075 BPM Atrial Rate : 075 BPM P-R Int : 186 ms QRS Dur : 082 ms QT Int : 380 ms P-R-T Axes : 063 084 052 degrees QTc Int : 424 ms Normal sinus rhythm Normal ECG Confirmed by ALISTAIR VIDAL MD ([id number]), dictionary editor SUNSHINE STODDARD ([id number]) on 08/20/2018 10:37:33 AM Referred By: LD Confirmed By:ALISTAIR VIDAL MD 08/20/18 1037 Date Alistair Vidal MD CC: Antonette Brown; Claudia De León MD; Poli Mendieta MD Signed DISCHARGE SUMMARY Observed: 08/19/2018 Status: F Source: [place] 12:08 PM [facility] Medical Records Department [address] [place] [address] Discharge Summary 08/19/18 1200 MR#: [id number] Acct: [id number] Name: MILAGROS STEVENSON Rep #: [id number] : 1935 82 From: Antonette Brown MD PCP: Poli Mendieta MD Status: DIS IN Y Location: [place] [address] Discharge Date and Diagnosis Date of Admission: [...] Terrell Solano MD at 10:01 EST Tel [phone], Service support , Dr. Bone, nephrology. Operations: [...] DAILY 05/18/15 Aspirin 325 mg PO DAILY@0800 08/06/18 Felodipine [Plendil] 10 mg PO DAILY 08/16/18 [...] 60 Code Visit Inpatient E AND M: 27987 Disch Hosp 08/19/18 1208 <Electronically signed by Antonette Brown MD> Date Antonette Brown MD Cosigner Signature (if applicable): Date CC: Antonette Brown; Gamaliel Bone M.D.; Poli Mendieta MD Signed DISCHARGE INSTRUCTION Observed: 08/19/2018 Status: F Source: [place] 8:00 AM [facility] REPOSITORY [facility] Medical Records Department [address] [place] [address] Instructions for Home/Discharge Instructions 08/19/18 0759 MR#: [id number] Acct: [id number] Name: MILAGROS STEVENSON Rep #: [id number] : 1935 82 From: Antonette Brown MD [...] F Source: [place] PROFILE (BMP) 5:00 AM [facility] REPOSITORY TYPE CODE TESTS RESULT OUT OF [...] GAP 8 Performed By: #### L500.2500 #### [facility] [address] [place], [place], [address] BASIC METABOLIC Collected: 08/18/2018 Status: F Source: [place] PROFILE (BMP) 5:35 AM [facility] REPOSITORY TYPE CODE TESTS RESULT OUT OF [...] GAP 10 Performed By: #### L500.2500 #### [facility] [address] [facility] [place], [address] CHEST 1 VIEW Observed: 08/18/2018 Status: F Source: [place] (PORTABLE) 12:01 AM [facility] REPOSITORY [facility] Imaging Services [address] [facility] [place] [address] Chest 1 View (Portable) MR#: [id number] Acct: [id number] Name: MILAGROS STEVENSON Rep #: [id number] : 1935 F 82 From: Terrell Solano MD PCP: Poli Mendieta MD Status: ADM IN Study: Chest 1 View (Portable) Date of Exam: 08/18/18 Exam# [id number] Ordering Dr: Wendy Cummings STUDY: X-RAY CHEST REASON FOR EXAM: Female, [...] Terrell Solano MD at 10:01 EST Tel [phone], Service support , CC: ZAK Cummings; Poli Mendieta MD Armature And Rotor Winder: Signed URINALYSIS, COMPLETE Collected: 08/17/2018 Status: F Source: [place] 9:00 PM [facility] REPOSITORY Order Comment: How was Urine Obtained? [...] URINE SEEN Performed By: #### L400.0001 #### [facility] [address] [place] [address] [place], [address] CONSULTATION Observed: 08/17/2018 Status: F Source: [place] 4:54 PM [facility] REPOSITORY [facility] Medical Records Department [address] [place] [address] Consultation 12/07/25 1648 MR#: [id number] Acct: [id number] Name: MILAGROS STEVENSON Rep #: [id number] : 1935 82 From: Bhupendra Bone MD PCP: Poli Mendieta MD Status: ADM IN Y Location: [place] [address] Problem List (1) PEACE (acute kidney injury) [...] 0-3)/T>100.7 Albuterol/Ipratropium (Duoneb) 3 ml INHALATION Q6HWA.RT KARL Last Admin: 08/17/18 13:19 Dose: Not Given Amlodipine Besylate (Norvasc) 10 mg PO DAILY [facility] Aspirin (Aspirin) 325 mg PO DAILY@0800 [facility] Last Admin: 08/17/18 08:46 Dose: 325 mg Heparin Sodium (Porcine) (Heparin Na) 5,000 unit SC Q8 [facility] Last Admin: 08/17/18 14:20 Dose: 5,000 unit Hydralazine HCl (Apresoline) 25 mg PO TID [facility] Last Admin: 08/17/18 14:20 Dose: 25 mg [...] Date Recorded By Document 08/17/18 14:32 ANG [id number] 08/17/18 14:33 ANG Orthostatic Vitals Standing -Blood [...] ok now will arrange follow up in [facility] office after dc 08/17/18 4444 <Electronically signed by Bhupendra Bone MD> Date Bhupendra Bone MD Cosigner Signature (if applicable): Date CC: Ferdinand Aleman MD; Poli Mendieta MD Signed COMPREHENSIVE METABOLIC Collected: 08/17/2018 Status: F Source: [facility] 6:25 AM [facility] REPOSITORY TYPE CODE TESTS RESULT OUT OF [...] By: #### L500.4050, L500.4100, L501.2300, L501.5200 #### [facility] [address] [place], [address] LIPID PROFILE Collected: 08/17/2018 Status: F Source: [place] 6:25 AM [facility] REPOSITORY TYPE CODE TESTS RESULT OUT OF [...] By: #### L500.4050, L500.4100, L501.2300, L501.5200 #### [facility] [address] [place], [address] PHOSPHORUS Collected: 08/17/2018 Status: F Source: [place] 6:25 AM [facility] REPOSITORY TYPE CODE TESTS RESULT OUT OF RANGE REFERENCE UNITS LAB L501.2300 2.5-4.9 mg/dL Normal PHOS 3.1 Performed By: #### L500.4050, L500.4100, L501.2300, L501.5200 #### [facility] [address] [place], [address] MAGNESIUM Collected: 08/17/2018 Status: F Source: [place] 6:25 AM [facility] REPOSITORY TYPE CODE TESTS RESULT OUT OF RANGE REFERENCE UNITS LAB L501.5200 1.6-2.6 mg/dL Normal MG 1.8 Performed By: #### L500.4050, L500.4100, L501.2300, L501.5200 #### [facility] [address] [place], [address] TROPONIN-I Collected: 08/17/2018 Status: F Source: [place] 1:00 AM [facility] REPOSITORY Order Comment: 'TROP' Serial specimen #1, [...] Not every elevated troponin is indicative of NC. These values should be used with clinical judgement in examining the patient's clinical picture for diagnosis. To establish a diagnosis of NC versus myocardial injury, there must be a demonstrated rise and/or fall in the troponin values, in addition to ischemic symptoms, EKG changes, new regional wall motion abnormality, and/or angiographical evidence. PLEASE NOTE: REFERENCE RANGES EDITED 18 Performed By: #### L501.4010 #### [facility] [address] [place], [address] KIDNEY AND BLADDER Observed: 08/17/2018 Status: F Source: [place] 12:01 AM [facility] REPOSITORY [facility] Imaging Services [address] [place] [address] Kidney and Bladder MR#: [id number] Acct: [id number] Name: MILAGROS STEVENSON Rep #: [id number] : 1935 F 82 From: Zonia Foreman MD PCP: Poli Mendieta MD Status: ADM IN Study: Kidney and Bladder Date of Exam: 08/17/18 Exam# [id number] Ordering Dr: Violeta Dowling DO STUDY: RENAL [...] , CC: Sarah Dowling; Poli Mendieta MD Armature And Rotor Winder: Signed HISTORY AND PHYSICAL Observed: 08/16/2018 Status: F Source: [place] EXAM 6:48 PM [facility] REPOSITORY [facility] Medical Records Department [address] [address] History and Physical 08/16/18 1826 MR#: [id number] Acct: [id number] Name: MILAGROS STEVENSON Rep #: [id number] : 1935 82 From: Violeta Dowling DO PCP: Poli Mendieta MD Status: ADM IN Location: [place] [address] Problem List (1) Acute diastolic (congestive) heart [...] who presented to the emergency department at [facility] on 08/16/2018 complaining of shortness of [...] . 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 Lives: Alone Smoking Status: Former [...] with heparin and SCDs Code Visit Inpatient Yariel AND Violeta: 36259 Subs Hosp L3 08/16/18 9387 <Electronically signed by Violeta Dowling DO> Date Violeta Dowling DO Cosigner Signature: Date (if applicable) CC: Sarah Dowling; Poli Mendieta MD Signed PHOSPHORUS Collected: 08/16/2018 Status: F Source: [place] 6:46 PM [facility] REPOSITORY Order Comment: 'TROP' Serial specimen #1, #2 or #3: 2 TYPE CODE TESTS RESULT OUT OF RANGE REFERENCE UNITS LAB L501.2300 2.5-4.9 mg/dL Normal PHOS 2.8 Performed By: #### L501.2300, L501.4010, L501.5200, L501.9520 #### [facility] [address] [place], [place], [address] TROPONIN-I Collected: 08/16/2018 Status: F Source: [place] 6:46 PM [facility] REPOSITORY Order Comment: 'TROP' Serial specimen #1, #2 or #3: 2 TYPE CODE TESTS RESULT OUT OF RANGE REFERENCE UNITS LAB L501.4010 <0.045 ng/mL Normal 0.038 TROPONIN-I Result Comment: TROPONIN-I EXPECTED VALUES <0.045 Negative 0.045 - 0.590 Consistent with Cardiac Damage > OR = 0.600 Critical Value Not every elevated troponin is indicative of NC. These values should be used with clinical judgement in examining the patient's clinical picture for diagnosis. To establish a diagnosis of NC versus myocardial injury, there must be a demonstrated rise and/or fall in the troponin values, in addition to ischemic symptoms, EKG changes, new regional wall motion abnormality, and/or angiographical evidence. PLEASE NOTE: REFERENCE RANGES EDITED 18 Performed By: #### L501.2300, L501.4010, L501.5200, L501.9520 #### [facility] [address] [place], [place], [address] MAGNESIUM Collected: 08/16/2018 Status: F Source: [place] 6:46 PM [facility] REPOSITORY Order Comment: 'TROP' Serial specimen #1, #2 or #3: 2 TYPE CODE TESTS RESULT OUT OF RANGE REFERENCE UNITS LAB L501.5200 1.6-2.6 mg/dL Normal MG 1.8 Performed By: #### L501.2300, L501.4010, L501.5200, L501.9520 #### [facility] [address] [place], [address] THYROID STIM HORMONE Collected: 08/16/2018 Status: F Source: [facility] (TSH) 6:46 PM [facility] REPOSITORY Order Comment: 'TROP' Serial specimen #1, #2 or #3: 2 TYPE CODE TESTS RESULT OUT OF RANGE REFERENCE UNITS LAB L501.9520 0.358-3.74 uIU/mL Normal TSH 3.05 Performed By: #### L501.2300, L501.4010, L501.5200, L501.9520 #### [facility] [address] [facility] [place], [address] EMERGENCY DEPARTMENT Observed: 08/16/2018 Status: F Source: [place] SUMMARY 5:24 PM [facility] REPOSITORY [facility] Medical Records Department [address] [facility] [place] [address] Emergency Department Summary 08/16/18 1444 MR#: [id number] Acct: [id number] Name: MILAGROS STEVENSON Rep #: [id number] : 1935 82 From: Claudia De León [...] solitary kidney. This note was generated with Mimetas dictation software. It may contain incorrect words, [...] your Primary Care Provider. Call [facility] ([phone]) or report to the closest Emergency Room. Call 911 if necessary. 08/16/18 1724 <Electronically signed by Claudia De León MD> Date Claudia De León MD Cosigner Signature (If Indicated): Date CC: Poli Mendieta MD CBC W/DIFF, AUTOMATED Collected: 08/16/2018 Status: F Source: [place] 3:00 PM [facility] REPOSITORY TYPE CODE TESTS RESULT OUT OF [...] Lymph 0.98 Performed By: #### L100.0100 #### [facility] [address] [place], [address] BASIC METABOLIC Collected: 08/16/2018 Status: F Source: [place] PROFILE (BMP) 3:00 PM [facility] REPOSITORY TYPE CODE TESTS RESULT OUT OF [...] 6 Performed By: #### L500.2500, L501.4010 #### [facility] [address] [facility] [place], [address] TROPONIN-I Collected: 08/16/2018 Status: F Source: [place] 3:00 PM [facility] REPOSITORY TYPE CODE TESTS RESULT OUT OF RANGE REFERENCE UNITS LAB L501.4010 <0.045 ng/mL Normal 0.034 TROPONIN-I Result Comment: TROPONIN-I EXPECTED VALUES <0.045 Negative 0.045 - 0.590 Consistent with Cardiac Damage > OR = 0.600 Critical Value Not every elevated troponin is indicative of NC. These values should be used with clinical judgement in examining the patient's clinical picture for diagnosis. To establish a diagnosis of NC versus myocardial injury, there must be a demonstrated rise and/or fall in the troponin values, in addition to ischemic symptoms, EKG changes, new regional wall motion abnormality, and/or angiographical evidence. PLEASE NOTE: REFERENCE RANGES EDITED 18 Performed By: #### L500.2500, L501.4010 #### [facility] [address] [place], [address] BNP,B-TYPE NATRIURETIC Collected: 08/16/2018 Status: F Source: [place]PTIDE 3:00 PM [facility] REPOSITORY TYPE CODE TESTS RESULT OUT OF RANGE REFERENCE UNITS LAB L503.6620 0-100 pg/mL High B-TYPE 1349.2 KAVIN PEP Performed By: #### L503.6620 #### [facility] [address] [place], [address] PROTHROMBIN TIME W/INR Collected: 08/16/2018 Status: F Source: [place] 3:00 PM [facility] REPOSITORY TYPE CODE TESTS RESULT OUT OF RANGE REFERENCE UNITS LAB L300.4150 11.7-14.9 SECONDS High PROTIME 15.1 LAB L300.4200 Normal INR 1.2 Performed By: #### L300.3900, L300.4310 #### [facility] [address] [place], [address] PARTIAL THROMBOPLAST Collected: 08/16/2018 Status: F Source: [place] TIME 3:00 PM [facility] REPOSITORY TYPE CODE TESTS RESULT OUT OF RANGE REFERENCE UNITS LAB L300.4310 24.1-36.2 Seconds Normal PTT 29.0 Performed By: #### L300.3900, L300.4310 #### [facility] [address] [place], [address] CHEST PA AND LATERAL Observed: 08/16/2018 Status: F Source: [place] 2:44 PM [facility] REPOSITORY [facility] Imaging Services [address] [place] [address] Chest PA and Lateral MR#: [id number] Acct: [id number] Name: MILAGROS STEVENSON Rep #: [id number] : 1935 F 82 From: Zonia Foreman MD PCP: Poli Mendieta MD Status: REG ER Study: Chest PA and Lateral Date of Exam: 08/16/18 Exam# [id number] Ordering Dr: Claudia De León MD STUDY: [...] Claudia De León MD; Poli Mendieta MD Armature And Rotor Winder: Signed DISCHARGE SUMMARY Observed: 04/14/2018 Status: F Source: [place] 7:07 [facility] REPOSITORY [facility] Medical Records Department [address] [place] [address] Discharge Summary 04/14/18 1903 MR#: [id number] Acct: [id number] Name: MILAGROS STEVENSON Rep #: [id number] : 1935 82 From: Jeanmarie Veras DO PCP: Poli Mendieta MD Status: DIS MARION Y Location: [place] [address] Discharge Date and Diagnosis Date of Admission: [...] F seen in the emergency room at [facility] with chief complaint of chest discomfort [...] applicable Code Visit OBSV E AND M: 85399 Observation care discharge 04/14/18 2604 <Electronically signed by Jeanmarie Veras DO> Date Jeanmarie Veras DO Cosigner Signature (if applicable): Date CC: Poli Mendieta MD; Jeanmarie Veras DO Signed 12 LEAD ELECTROCARDIOGRAM Observed: 04/14/2018 Status: F Source: [place] 11:30 AM [facility] REPOSITORY [facility] Cardiovascular Services [address] [place] [address] 12 Lead EKG 04/12/1847 MR#: [id number] Acct: [id number] Name: MILAGROS STEVENSON Rep #: [id number] : 1935 82 From: Cornelius Mirza MD Attending Dr: Jeanmarie Veras DO Status: DIS MARION Ordering Dr: Constance Kaur Date: 04/12/18 Location: U Sex: F C Admitted: 04/11/18 Test Reason [...] Low voltage QRS (limb leads) Confirmed by BETTY SHELDON, CORNELIUS ([id number]), dictionary editor SUNSHINE STODDARD ([id number]) on 04/14/2018 11:29:45 AM Referred By: DR KAUR Confirmed By:CORNELIUS MIRZA MD 04/14/18 112 Date Cornelius Mirza MD CC: Poli Mendieta MD; Constance Kaur; Jeanmarie Veras DO Signed 12 LEAD ELECTROCARDIOGRAM Observed: 04/14/2018 Status: F Source: [place] 10:53 AM [facility] REPOSITORY [facility] Cardiovascular Services [address] [place] [address] 12 Lead EKG 04/11/182001 MR#: [id number] Acct: [id number] Name: MILAGROS STEVENSON Rep #: [id number] : 1935 82 From: Cornelius Mirza MD Attending Dr: Jeanmarie Veras DO Status: DIS MARION Ordering Dr: Joe Severino DO Date: 04/11/18 Location: U Sex: F C Admitted: 04/11/18 Test Reason [...] ventricular complexes Otherwise normal ECG Confirmed by BETTY SHELDON, CORNELIUS ([id number]), dictionary editor SUNSHINE STODDARD ([id number]) on 04/14/2018 10:53:26 AM Referred By: FAWAD Confirmed By:CORNELIUS MIRZA MD 04/14/18 1053 Date Cornelius Mirza MD CC: Poli Mendieta MD; Jeanmarie Veras DO; Joe Severino DO Signed DISCHARGE INSTRUCTION Observed: 04/12/2018 Status: F Source: [place] 11:48 AM [facility] REPOSITORY [facility] Medical Records Department [address] [place] [address] Instructions for Home/Discharge Instructions 04/12/18 1147 MR#: [id number] Acct: [id number] Name: MILAGROS STEVENSON Rep #: [id number] : 1935 82 From: Jeanmarie Veras DO PCP: Poli Mendieta MD Status: ADM MARION - Discharge Diagnoses Current Active Problems: Current Active and Chronic Problems (Last Reviewed 04/06/18 @ 10:57 by Wendy Carter) Chronic respiratory failure with hypoxia (Chronic) Chest [...] STRESS REPORT Observed: 04/12/2018 Status: F Source: [place] 9:50 AM [facility] REPOSITORY [facility] Cardiovascular Services [address] [place] [address] MR#: [id number] Acct: [id number] Name: MILAGROS STEVENSON Rep #: [id number] : 1935 82 From: Cornelius Mirza MD Primary Care: Poli Mendieta MD Status: [...] 57 %. This note was generated with Arkadiumation software. It may contain incorrect words, spelling, and punctuation that were not noted in checking the note before signing. 04/12/1850 <Electronically signed by Cornelius Mirza MD> Date Cornelius Mirza MD CC: Poli Mendieta MD; Jeanmarie Veras DO Date Dictated: 04/12/18941 Date Transcribed: 04/12/18941 Armature And Rotor Winder: PM Signed TROPONIN-I Collected: 04/12/2018 Status: F Source: [place] 3:55 AM [facility] REPOSITORY Order Comment: 'TROP' Serial specimen #1, #2 or #3: 3 TYPE CODE TESTS RESULT OUT OF RANGE REFERENCE UNITS LAB L501.4010 <0.045 ng/mL Normal < 0.015 TROPONIN-I Result Comment: TROPONIN-I EXPECTED VALUES <0.045 Negative 0.045 - 0.590 Consistent with Cardiac Damage > OR = 0.600 Critical Value Not every elevated troponin is indicative of NC. These values should be used with clinical judgement in examining the patient's clinical picture for diagnosis. To establish a diagnosis of NC versus myocardial injury, there must be a demonstrated rise and/or fall in the troponin values, in addition to ischemic symptoms, EKG changes, new regional wall motion abnormality, and/or angiographical evidence. PLEASE NOTE: REFERENCE RANGES EDITED 18 Performed By: #### L501.4010 #### [facility] [address] [facility] [place], [place], [address] PROTHROMBIN TIME W/INR Collected: 04/12/2018 Status: F Source: [place] 3:55 AM [facility] REPOSITORY TYPE CODE TESTS RESULT OUT OF RANGE REFERENCE UNITS LAB L300.4150 11.7-14.9 SECONDS Normal PROTIME 14.3 LAB L300.4200 Normal INR 1.1 Performed By: #### L300.3900, L300.4310 #### [facility] [address] [facility] [place], [address] PARTIAL THROMBOPLAST Collected: 04/12/2018 Status: F Source: [place] TIME 3:55 AM [facility] REPOSITORY TYPE CODE TESTS RESULT OUT OF RANGE REFERENCE UNITS LAB L300.4310 24.1-36.2 Seconds Normal PTT 28.4 Performed By: #### L300.3900, L300.4310 #### [facility] [address] [place], [place], [address] CBC-COMPLETE BLOOD CNT Collected: 04/12/2018 Status: F Source: [place] NO DIFF 3:55 AM [facility] REPOSITORY TYPE CODE TESTS RESULT OUT OF [...] MPV 10.2 Performed By: #### L100.0500 #### [facility] [address] [place], [place], [address] BASIC METABOLIC Collected: 04/12/2018 Status: F Source: [place] PROFILE (BMP) 3:55 AM [facility] REPOSITORY TYPE CODE TESTS RESULT OUT OF [...] 12 Performed By: #### L500.2500, L500.4100 #### [facility] [address] [facility] [place], [place], [address] LIPID PROFILE Collected: 04/12/2018 Status: F Source: [place] 3:55 AM [facility] REPOSITORY TYPE CODE TESTS RESULT OUT OF [...] 10 Performed By: #### L500.2500, L500.4100 #### [facility] [address] [facility] [place], [place], [address] MAGNESIUM Collected: 04/12/2018 Status: F Source: [place] 12:42 AM [facility] REPOSITORY TYPE CODE TESTS RESULT OUT OF RANGE REFERENCE UNITS LAB L501.5200 1.6-2.6 mg/dL Normal MG 1.8 Performed By: #### L501.5200 #### [facility] [address] [place], [address] TROPONIN-I Collected: 04/12/2018 Status: F Source: [place] 12:42 AM [facility] REPOSITORY Order Comment: 'TROP' Serial specimen #1, #2 or #3: 2 TYPE CODE TESTS RESULT OUT OF RANGE REFERENCE UNITS LAB L501.4010 <0.045 ng/mL Normal < 0.015 TROPONIN-I Result Comment: TROPONIN-I EXPECTED VALUES <0.045 Negative 0.045 - 0.590 Consistent with Cardiac Damage > OR = 0.600 Critical Value Not every elevated troponin is indicative of NC. These values should be used with clinical judgement in examining the patient's clinical picture for diagnosis. To establish a diagnosis of NC versus myocardial injury, there must be a demonstrated rise and/or fall in the troponin values, in addition to ischemic symptoms, EKG changes, new regional wall motion abnormality, and/or angiographical evidence. PLEASE NOTE: REFERENCE RANGES EDITED 18 Performed By: #### L501.4010 #### [facility] [address] [place], [address] HISTORY AND PHYSICAL Observed: 04/12/2018 Status: F Source: [place] EXAM 12:41 AM [facility] REPOSITORY [facility] Medical Records Department [address] [place] [address] History and Physical 04/11/18 2329 MR#: [id number] Acct: [id number] Name: MILAGROS STEVENSON Rep #: [id number] : 1935 82 From: Constance Kaur PCP: Poli Mendieta MD Status: ADM MARION Y Location: [place] [address] Problem List (1) Chest pain Status: Acute [...] (baseline Cr 1.4) who presents to the [facility] ED on 04/11/18 with history of [...] . 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 Follows w/ [facility] Services Coordinator at [facility]. (5) Morbid Obesity: Weight loss and lifestyle [...] minutes. Code Visit OBSV E AND M: 01884 Initial observation care L3 Procedures: 75555 Advncd Care Plan 30 Min 04/12/18 0041 <Electronically signed by Constance Kaur > Date Constance Kaur Cosigner Signature: Date (if applicable) CC: Poli Mendieta MD; Constance Kaur Signed EMERGENCY DEPARTMENT Observed: 04/11/2018 Status: F Source: [place] SUMMARY 11:18 PM [facility] REPOSITORY [facility] Medical Records Department [address] [place] [address] Emergency Department Summary 04/11/18 2313 MR#: [id number] Acct: [id number] Name: MILAGROS STEVENSON Rep #: [id number] : 1935 82 From: Joe Severino DO [...] coronary syndrome] This note was generated with Mimetas dictation software. It may contain incorrect words, [...] your Primary Care Provider. Call [facility] ([phone]) or report to the closest Emergency Room. Call 911 if necessary. 04/11/18 2318 <Electronically signed by Joe Severino DO> Date Joe Severino DO Cosigner Signature (If Indicated): Date CC: Poli Mendieta MD CTA CHEST W/WO Observed: 04/11/2018 Status: F Source: [place] CONTRAST 9:40 PM [facility] REPOSITORY [facility] Imaging Services [address] [place] [address] CTA Chest W/WO Contrast MR#: [id number] Acct: [id number] Name: MILAGROS STEVENSON Rep #: [id number] : 1935 F 82 From: Tracey Villatoro MD PCP: Poli Mendieta MD Status: REG ER Study: CTA Chest W/WO Contrast Date of Exam: 04/11/18 Exam# [id number] Ordering Dr: Joe Severino DO STUDY: CTA [...] CC: Poli Mendieta MD; Joe Severino DO Armature And Rotor Winder: Signed CBC W/DIFF, AUTOMATED Collected: 04/11/2018 Status: F Source: [place] 9:00 PM [facility] REPOSITORY TYPE CODE TESTS RESULT OUT OF [...] Lymph 1.26 Performed By: #### L100.0100 #### [facility] [address] [facility] [place], [place], [address] D-DIMER QUANTITATIVE Collected: 04/11/2018 Status: F Source: [place] (DVT/PE) 9:00 PM [facility] REPOSITORY TYPE CODE TESTS RESULT OUT OF RANGE REFERENCE UNITS LAB L300.8000 0.27-0.49 FEU/ug/m High alert D-DIMER 0.85 QUANT Result Comment: D-Dimer ELEVATED (>0.49): Additional studies and clinical assessments are indicated to conclude diagnosis of: Deep Vein Thrombosis (DVT) or Pulmonary Embolism (PE) CRITICAL VALUE VERIFIED. CALLED TO AMAURY 04/11/18 Corrina Ortiz. RESULTS READ BACK BY SAME . Performed By: #### L300.8000 #### [facility] [address] [place], [place], [address] LIPASE Collected: 04/11/2018 Status: F Source: [place] 9:00 PM [facility] REPOSITORY TYPE CODE TESTS RESULT OUT OF RANGE REFERENCE UNITS LAB L501.2450 73-393 U/L Normal LIPASE 154 Performed By: #### L501.2450 #### [facility] [address] [place], [place], [address] BASIC METABOLIC Collected: 04/11/2018 Status: F Source: [place] PROFILE (BMP) 9:00 PM [facility] REPOSITORY Order Comment: 'TROP' Serial specimen #1, [...] 11 Performed By: #### L500.2500, L501.4010 #### [facility] [address] [place], [place], [address] TROPONIN-I Collected: 04/11/2018 Status: F Source: [place] 9:00 PM [facility] REPOSITORY Order Comment: 'TROP' Serial specimen #1, #2, #3, or #4: 1 TYPE CODE TESTS RESULT OUT OF RANGE REFERENCE UNITS LAB L501.4010 <0.045 ng/mL Normal 0.017 TROPONIN-I Result Comment: TROPONIN-I EXPECTED VALUES <0.045 Negative 0.045 - 0.590 Consistent with Cardiac Damage > OR = 0.600 Critical Value Not every elevated troponin is indicative of NC. These values should be used with clinical judgement in examining the patient's clinical picture for diagnosis. To establish a diagnosis of NC versus myocardial injury, there must be a demonstrated rise and/or fall in the troponin values, in addition to ischemic symptoms, EKG changes, new regional wall motion abnormality, and/or angiographical evidence. PLEASE NOTE: REFERENCE RANGES EDITED 18 Performed By: #### L500.2500, L501.4010 #### [facility] [address] [facility] [place], [address] CHEST 1 VIEW Observed: 04/11/2018 Status: F Source: [place] (PORTABLE) 8:20 PM [facility] REPOSITORY [facility] Imaging Services [address] [place] [address] Chest 1 View (Portable) MR#: [id number] Acct: [id number] Name: MILAGROS STEVENSON Rep #: [id number] : 1935 F 82 From: Mendoza Walters MD PCP: Poli Mendieta MD Status: REG ER Study: Chest 1 View (Portable) Date of Exam: 04/11/18 Exam# [id number] Ordering Dr: Joe Severino DO STUDY: X-RAY CHEST REASON FOR EXAM: Female, 82 years old. Chest pain TECHNIQUE: Single AP portable view of the chest. COMPARISON: Prior study of 12/05/2017 FINDINGS: air sampling and monitoring leads are present. Prominent bronchopulmonary markings are [...] CC: Poli Mendieta MD; Joe Severino DO Armature And Rotor Winder: Signed PULMONARY VISIT REPORT Observed: 04/06/2018 Status: F Source: [place] 11:[address] [facility] Pulmonary Medicine of [address] [place] [address] OFFICE VISIT Date of Service: 04/06/18 MR#: [id number] Acct: [id number] Name: MILAGROS STEVENSON Rep #: [id number] : 1935 Provider: Meseret Sommers Age/Sex: 82/F [place] [facility] Status: Signed Assessment AND Plan 1. Shortness [...] [place] daily. 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: [employer] Accompanied by: Self Is patient in pain?: [...] 12/06/17 [Rx Confirmed 04/06/18] Hydrocodone Bitart/Apap 5-325 [[place] 5MG-325MG] 1 tab PO Q4H PRN PRN [...] R06.02 04/06/18 1155 <Electronically signed by Meseret Sommers WEAVER HAND LOOMMoreC> Date Meseret Sommers NP-C Farzadigner Signature: Date (if applicable) CC: Poli Mendieta MD EMERGENCY DEPARTMENT Observed: 03/11/2018 Status: F Source: [place] SUMMARY 5:12 PM [facility] REPOSITORY [facility] Medical Records Department [address] [place] [address] Emergency Department Summary 03/11/18 1356 MR#: [id number] Acct: [id number] Name: MILAGROS STEVENSON Rep #: [id number] : 1935 82 From: Zachariah Solis MD [...] 13:55 IMPRESSION: Sigmoid diverticulosis. Electronically Signed: Terrell Solano MD at 14:58 EDT Tel [phone], Service support , 03/11/18 13:55 Abdomen/Pelvis without [...] she was still hurting and wanted some [place] because that helped in the past but [...] Strain Abdominal Muscle Prescriptions: Hydrocodone Bitart/Apap 5-325 [[place] 5MG-325MG] 1 tablet PO Q4H PRN PRN 2 Days #10 tablet PRN Reason: Pain Referrals: Poli Mendieta MD [Primary Care Provider] - 3-5 Days if not improving What to do if you have Problems For any increased pain, shortness of breath, bleeding, nausea or vomiting, chest pain, or any unexpected problems, contact your Primary Care Provider. Call [facility] ([phone]) or report to the closest Emergency Room. Call 911 if necessary. 03/11/18 2561 <Electronically signed by Zachariah Solis MD> Date Zachariah Solis MD Cosigner Signature (If Indicated): Date CC: Poli Mendieta MD ABDOMEN/PELVIS WITHOUT Observed: 03/11/2018 Status: F Source: [place] CONT 1:56 PM [facility] REPOSITORY [facility] Imaging Services [address] [place] [address] Abdomen/Pelvis without Cont MR#: [id number] Acct: [id number] Name: MILAGROS STEVENSON Rep #: [id number] : 1935 F 82 From: Terrell Solano MD PCP: Poli Mendieta MD Status: REG ER Study: Abdomen/Pelvis without Cont Date of Exam: 03/11/18 Exam# [id number] Ordering Dr: Zachariah Solis MD STUDY: CT [...] Terrell Solano MD at 14:58 EDT Tel [phone], Service support , CC: Poli Mendieta MD; ZACHARIAH SOLIS MD Armature And Rotor Winder: Signed URINALYSIS, COMPLETE Collected: 03/11/2018 Status: F Source: [place] 1:45 PM [facility] REPOSITORY Order Comment: How was Urine Obtained? SERVER SECURITY ADMINISTRATOR TO SPECIFY TYPE CODE TESTS RESULT OUT [...] 0-5 SEEN Performed By: #### L400.0001 #### [facility] [address] [place], [place], [address] CBC W/DIFF, AUTOMATED Collected: 03/11/2018 Status: F Source: [place] 11:25 AM [facility] REPOSITORY TYPE CODE TESTS RESULT OUT OF [...] Lymph 1.42 Performed By: #### L100.0100 #### [facility] [address] [place], [address] BASIC METABOLIC Collected: 03/11/2018 Status: F Source: [place] PROFILE (BMP) 11:25 AM [facility] REPOSITORY TYPE CODE TESTS RESULT OUT OF [...] 6 GAP Performed By: #### L500.2500 #### [facility] [address] [place], [address] PULMONARY VISIT REPORT Observed: 03/02/2018 Status: F Source: [place] 2:43 PM [facility] REPOSITORY Pulmonary Medicine of [place] [address] [place] [address] OFFICE VISIT Date of Service: 03/02/18 MR#: [id number] Acct: [id number] Name: MILAGROS STEVENSON Rep #: [id number] : 1935 Provider: Abdiel Mosley D.O. Age/Sex: 82/F Location[place] [facility] Status: Signed Assessment AND Plan 1. Chronic hypoxemic respiratory failure J96.11 Plan The patient's recent 6 minute walk test did reveal the need for 4 L/min supplemental oxygen with exertion. However, the patient is currently only utilizing 2 L/min. New orders for supplemental oxygen will be faxed to [facility]. Patient was advised to increase her supplemental [...] stephanie: Order Changed Follow Up 1 Month ([facility]) HPI HPI Comments Details: The patient is [...] 09/11/16 [Rx Confirmed 03/02/18] Hydrocodone Bitart/Apap 5-325 [[place] 5/325] 1 - 2 tab PO Q4H PRN PRN #20 tab 12/23/16 [Rx Confirmed 03/02/18] Felodipine [Plendil] 10 mg PO DAILY 12/02/17 [History Confirmed 03/02/18] Oxygen, Home [Home Oxygen] 2 lpm NASAL CONT #1 unit 12/06/17 [Rx Confirmed 03/02/18] Prednisone [Deltasone] 40 mg PO DAILY #10 tab 12/06/17 [Rx Confirmed 03/02/18] [facility] Medical History Acute respiratory failure with hypoxia [...] 01/27/2018 Status: F Source: [place] 11:32 AM [facility] REPOSITORY [facility] Pulmonary Services/Neurology [address] [place] [address] MR#: [id number] Acct: [id number] Name: MILAGROS STEVENSON Rep #: [id number] : 1935 82 From: Abdiel Mosley DO Referring Dr: Meseret Sommers WEAVER HAND LOOM Date: Ordering Dr: Sex: F C Location: PSN PSN 6 Minute Walk Test - 6 Minute Walk Test 6 Minute Walk Test: 6 Minute Walk Test PSN:6-Minute Walk Test Start: 01/26/18 13:09 Freq: Status: Active Protocol: RESP.6MINW Document 01/26/18 12:45 MEK (Rec: 01/26/18 13:14 [facility] [id number]) 6 Minute Walk Test Date Performed 01/26/18 [...] Abdiel Mosley DO CC: Date Dictated: 01/27/18 1129 Date Transcribed: 01/27/18 112 Armature And Rotor Winder: Abdiel Mosley DO Signed PULMONARY FUNCTION Observed: 01/20/2018 Status: F Source: [place] REPORT COMP 5:47 AM [facility] REPOSITORY [facility] Pulmonary Services/Neurology [address] [place] [address] MR#: [id number] Acct: [id number] Name: MILAGROS STEVENSON Rep #: [id number] : 1935 82 From: Yayo Wilson MD Referring Dr: Meseret Sommers WEAVER HAND LOOM Status: REG CLI Ordering Dr: Date: Location: [facility] Sex: F C COMPLETE PULMONARY FUNCTION TEST INTERPRETATION Brief HPI: Patient is an 82 year old female, currently under the care of Meseret Sommers, who presents to [facility] for complete pulmonary function tests secondary [...] Sommers Date Dictated: 01/20/1844 Date Transcribed: 01/20/18543 Armature And Rotor Winder: MAURICIO Signed PULMONARY VISIT REPORT Observed: 12/25/2017 Status: F Source: [place] 1:27 PM [facility] REPOSITORY Pulmonary Medicine of [address] [place] [address] OFFICE VISIT Date of Service: 12/25/17 MR#: [id number] Acct: [id number] Name: MILAGROS STEVENSON Rep #: [id number] : 1935 Provider: Meseret Sommers Age/Sex: 82/F Location: [facility] Status: Signed Assessment AND Plan 1. Daytime [...] Orders Orders: Follow Up 2 Months (DMB) [facility] Hospital FU: Chief Complaint: Shortness of breath HPI Comments Details: This is a 82 year old F, currently under the care of Poli Mendieta, here to follow up after a recent hospitalization at [facility], from December 02 - December 06, [...] 09/11/16 [Rx Confirmed 12/02/17] Hydrocodone Bitart/Apap 5-325 [[place] 5/325] 1 - 2 tab PO Q4H [...] DAILY #10 tab 12/06/17 [Rx] [facility] Medical History Acute respiratory failure with hypoxia [...] 12/06/2017 Status: F Source: [place] 1:38 PM [facility] REPOSITORY [facility] Medical Records Department [address] [place] [address] Discharge Summary 12/06/17 1330 MR#: [id number] Acct: [id number] Name: MILAGROS STEVENSON Rep #: [id number] : 1935 82 From: Antonette Brown MD PCP: POLI MENDIETA Status: DIS IN Y Location: [place] [address] Discharge Date and Diagnosis Date of Admission: [...] PRN #1 inhaler 09/11/16 Hydrocodone Bitart/Apap 5-325 [[place] 5/325] 1 - 2 tablet PO Q4H [...] the discharge summary. Inpatient E AND M: 47158 Disch Hosp 12/06/17 1338 <Electronically signed by Antonette Brown MD> Date Antonette Brown MD Cosigner Signature (if applicable): Date CC: Abdiel Mosley D.O.; Antonette Brown; POLI MENDIETA Signed DISCHARGE INSTRUCTION Observed: 12/06/2017 Status: F Source: [place] 11:41 AM [facility] REPOSITORY [facility] Medical Records Department [address] [place] [address] Instructions for Home/Discharge Instructions 12/06/17 1140 MR#: [id number] Acct: [id number] Name: MILAGROS STEVENSON Rep #: [id number] : 1935 82 From: Antonette Brown MD [...] PRN #1 inhaler 09/11/16 Hydrocodone Bitart/Apap 5-325 [[place] 5/325] 1 - 2 tablet PO Q4H [...] F Source: [place] PROFILE (BMP) 8:00 AM [facility] REPOSITORY TYPE CODE TESTS RESULT OUT OF [...] GAP 9 Performed By: #### L500.2500 #### [facility] [address] [place], [address] CHEST 1 VIEW Observed: 12/05/2017 Status: F Source: [place] (PORTABLE) 7:29 AM [facility] REPOSITORY [facility] Imaging Services [address] [place] [address] Chest 1 View (Portable) MR#: [id number] Acct: [id number] Name: MILAGROS STEVENSON Jaycee Rep #: [id number] : 1935 F 82 From: Mazin Jiménez MD PCP: POLI MENDIETA Status: ADM IN Study: Chest 1 View (Portable) Date of Exam: 12/05/17 Exam# [id number] Ordering Dr: Abdiel Mosley DO STUDY: X-RAY [...] , CC: Abdiel Mosley D.O.; POLI MENDIETA Armature And Rotor Winder: Signed Observed: 12/05/2017 Status: F Source: [place] CULTURE, SPUTUM 6:00 AM [facility] REPOSITORY Gram Stain Acceptable Specimen? Yes (<25 Epithelial cells per/lpf) Gram Stain No White Blood Cells No Epithelial cells No organisms seen Resp. Culture No Haemophilus, Streptococcus pneumoniae, beta-hemolytic Streptococcus or Staphylococcus aureus isolated. ORGANISM 1: Presumptive C albicans Amount Growth 1+ Performed By: #### M100.0800 #### [facility] [address] [place], [address] RHEUMATOID FACTOR Collected: 12/04/2017 Status: F Source: [place] 7:28 AM [facility] REPOSITORY TYPE CODE TESTS RESULT OUT OF REFERENCE UNITS RANGE LAB L505.7010 <15 IU/mL High RHEUMATOID FAC 56.0 Performed By: #### L505.7010 #### [facility] [address] [place], [address] HARMEET W/ REFLEX MULT Collected: 12/04/2017 Status: F Source: [place] CONFIRM 7:28 AM [facility] REPOSITORY TYPE CODE TESTS RESULT OUT OF RANGE REFERENCE UNITS LAB L3100.5475 Negative Normal Negative HARMEET-DIRECT Performed By: #### L3100.5450, L3900.2100 #### [facility] (refer to report for specific site) refer to report for address and phone number ALPHA ANTITRYPSIN SERUM Collected: 12/04/2017 Status: F Source: [place] 7:28 AM [facility] REPOSITORY TYPE CODE TESTS RESULT OUT OF RANGE REFERENCE UNITS LAB L3900.2100 90-200 mg/dL Normal A- 131 [id number] Result Comment: Performed at: [facility] - [facility] [id number] Adobe Cq Developer: Arnol Rebollar PhD, Phone: [phone] Performed By: #### L3100.5450, L3900.2100 #### [facility] (refer to report for specific site) refer to report for address and phone number ANCA Collected: 12/04/2017 Status: F Source: [place] 7:28 AM [facility] REPOSITORY TYPE CODE TESTS RESULT OUT OF [...] up testing of positive sera with both OR- 3 and MPO-ANCA enzyme immunoassays. As many [...] 12/04/2017 Status: F Source: [place] 7:28 AM [facility] REPOSITORY TYPE CODE TESTS RESULT OUT OF RANGE REFERENCE UNITS LAB L4600.0100 0-19 units Normal ANTI-CCP 8 [id number] Result Comment: Negative <20 Weak positive 20 - 39 Moderate positive 40 - 59 Strong positive >59 Performed at: [facility] [employer] [id number] Adobe Cq Developer: Arnol Rebollar PhD, Phone: [phone] Performed at: [facility] [employer] [id number] Adobe Cq Developer: Yair Gillette MD, Phone: [phone] Performed By: #### L3300.1200, L4600.0100 #### [facility] (refer to report for specific site) refer to report for address and phone number ECHOCARDIOGRAM COMPLETE Observed: 12/03/2017 Status: F Source: [place] 5:31 PM [facility] REPOSITORY [facility] Cardiovascular Services [address] [place] [address] Echo Complete 12/03/17 0938 MR#: [id number] Acct: [id number] Name: MILAGROS STEVENSON Rep #: [id number] : 1935 82 From: Alistair Vidal MD Attending Dr: Savita Lobo M.D. Status: ADM IN Ordering Dr: Constance Kaur Date: 12/02/17 [place] [facility] Sex: F C Admitted: 12/02/17 Reason For [...] POLI MENDIETA Performed By: Delilah De Santiago, RASHAAD, RVT 12/03/17 3464 Date Alistair Vidal MD CC: Constance Kaur; POLI MENDIETA; Savita Lobo M.D. Date Dictated: 12/03/17 0938 Date Transcribed: 12/03/17 1730 Armature And Rotor Winder: Signed 12 LEAD ELECTROCARDIOGRAM Observed: 12/03/2017 Status: F Source: [place] 2:34 PM [facility] REPOSITORY [facility] Cardiovascular Services [address] [place] [address] 12 Lead EKG 12/02/17 1450 MR#: [id number] Acct: [id number] Name: MILAGROS STEVENSON Rep #: [id number] : 1935 82 From: Alistair Vidal MD Attending Dr: Savita Lobo M.D. Status: ADM IN Ordering Dr: Dm Feliciano MD Date: 12/02/17 [place] [facility] Sex: F C Admitted: 12/02/17 Test Reason [...] ECG Confirmed by CLIVE SHELDON, ALISTAIR ([id number]), dictionary editor SUNSHINE STODDARD ([id number]) on 12/03/2017 2:33:54 PM Referred By: JODI Confirmed By:ALISTAIR VIDAL MD 12/03/17 1433 Date Alistair Vidal MD CC: Dm Feliciano MD; POLI MENDIETA; Savita Lobo M.D. Signed CONSULTATION Observed: 12/03/2017 Status: F Source: [place] 1:50 PM [facility] REPOSITORY [facility] Medical Records Department [address] [place] [address] Consultation 12/03/17 0811 MR#: [id number] Acct: [id number] Name: MILAGROS STEVENSON Rep #: [id number] : 1935 82 From: Francia WESTC PCP: POLI MENDIETA Status: ADM IN Y [place] [facility] [id number] ADDENDUM by Abdiel Mosley D.O. on 12/03/17 [...] patient as tolerated. Inpatient E AND M: 15777 Init Hosp L3 12/03/17 1350 <Electronically signed by Abdiel Mosley DO> Date Abdiel Mosley DO cc: Abdiel Mosley D.O.; POLI EMNDIETA * Signed Problem List (1) Acute respiratory [...] been to the pulmonary clinic once, on 1/17/17. She states she had subsequent pulmonary function [...] 15 years and quit in 1994 (7.5 [id number]). 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 Patient states she had no other testing [...] or concerns. This note was generated with Mimetas dictation software. It may contain incorrect words, spelling, and punctuation that were not noted in checking the note before signing. 12/03/17 1229 <Electronically signed by Francia CRESPO> Date Francia CRESPO Cosigner Signature (if applicable): Date CC: Abdiel Mosley D.O.; POLI MENDIETA Signed CHEST WITHOUT Observed: 12/03/2017 Status: F Source: [place] CONTRAST 11:52 AM [facility] REPOSITORY [facility] Imaging Services [address] [place] [address] Chest without Contrast MR#: [id number] Acct: [id number] Name: MILAGROS STEVENSON Rep #: [id number] : 1935 F 82 From: Adonay Martinez MD PCP: POLI MENDIETA Status: ADM IN Study: Chest without Contrast Date of Exam: 12/03/17 Exam# [id number] Ordering Dr: Francia Braga STUDY: CT CHEST [...] , Service support , CC: Francia Braga NP; POLI MENDIETA Armature And Rotor Winder: Signed CBC W/DIFF, AUTOMATED Collected: 12/03/2017 Status: F Source: [place] 5:35 AM [facility] REPOSITORY TYPE CODE TESTS RESULT OUT OF [...] Lymph 0.54 Performed By: #### L100.0100 #### [facility] [address] [place] [address]. [place], [place], [address] BASIC METABOLIC Collected: 12/03/2017 Status: F Source: [place] PROFILE (BMP) 5:35 AM [facility] REPOSITORY TYPE CODE TESTS RESULT OUT OF [...] GAP 8 Performed By: #### L500.2500 #### [facility] [address] [place] [address]. [facility] [address] Observed: 12/02/2017 Status: F Source: [place] RESPIRATORY PANEL 8:10 PM [facility] MOLECULAR REPOSITORY RP PANEL ADENOVIRUS Not Detected [...] acid amplification Performed By: #### M100.638 #### [facility] [address] [place] [address] EMERGENCY DEPARTMENT Observed: 12/02/2017 Status: F Source: [place] SUMMARY 5:07 PM [facility] REPOSITORY [facility] Medical Records Department [address] [place] [address] Emergency Department Summary 12/02/17 1616 MR#: [id number] Acct: [id number] Name: MILAGROS STEVENSON Rep #: [id number] : 1935 82 From: Dm Feliciano MD [...] 2. Hypoxia This note was generated with Mimetas dictation software. It may contain incorrect words, [...] your Primary Care Provider. Call [facility] ([phone]) or report to the closest Emergency Room. Call 911 if necessary. 12/02/17 1632 <Electronically signed by Dm Feliciano MD> Date Dm Knutson Signature (If Indicated): Date CC: POLI MENDIETA HISTORY AND PHYSICAL Observed: 12/02/2017 Status: F Source: [place] EXAM 4:52 PM [facility] REPOSITORY [facility] Medical Records Department [address] [place] [address] History and Physical 12/02/17 1630 MR#: [id number] Acct: [id number] Name: MILAGROS STEVENSON Rep #: [id number] : 1935 82 From: Constance Kaur PCP: [...] (baseline Cr 1.4) who presents to the [facility] ED on 12/02/17 with history of [...] replacement. 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 Will admit to [facility], maintain on oxygen with wean as tolerated [...] 1.4, repeat BMP in AM. Follows w/ [facility] Services Coordinator at [facility]. (4) Obesity: Weight loss and lifestyle changes encouraged, nutrition consulted for education. (5) Hx TIA/CVD: Maintain on asa, BP regimen with goal <140/90, not on statin. (6) GERD: Famotidine. (7) DVT Prophylaxis: SCDs, heparin. Code Visit Inpatient E AND M: 08159 Init Hosp L3 12/02/17 1652 <Electronically signed by Constance Kaur > Date Constance Kaur Cosigner Signature: Date (if applicable) CC: Constance Kaur; POLI MENDIETA Signed CBC W/DIFF, AUTOMATED Collected: 12/02/2017 Status: F Source: [place] 2:36 PM [facility] REPOSITORY TYPE CODE TESTS RESULT OUT OF [...] Lymph 2.03 Performed By: #### L100.0100 #### [facility] [address] [place], [place], [address] BASIC METABOLIC Collected: 12/02/2017 Status: F Source: [place] PROFILE (BMP) 2:36 PM [facility] REPOSITORY Order Comment: 'TROP' Serial specimen #1, [...] 10 Performed By: #### L500.2500, L501.4010 #### [facility] [address] [place], [address] TROPONIN-I Collected: 12/02/2017 Status: F Source: [place] 2:36 PM [facility] REPOSITORY Order Comment: 'TROP' Serial specimen #1, #2, #3, or #4: 1 TYPE CODE TESTS RESULT OUT OF RANGE REFERENCE UNITS LAB L501.4010 <0.06 ng/mL Normal 0.03 TROPONIN-I Result Comment: TROPONIN-I EXPECTED VALUES <0.05 NEGATIVE 0.06 - 0.59 AT RISK OF NC > OR = 0.60 SUGGEST NC Performed By: #### L500.2500, L501.4010 #### [facility] [address] [place], [address] BNP,B-TYPE NATRIURETIC Collected: 12/02/2017 Status: F Source: [place] PEPTIDE 2:36 PM [facility] REPOSITORY TYPE CODE TESTS RESULT OUT OF RANGE REFERENCE UNITS LAB L503.6620 0-100 pg/mL High B-TYPE 252.0 KAVIN PEP Performed By: #### L503.6620 #### [facility] [address] [place], [address] MAGNESIUM Collected: 12/02/2017 Status: F Source: [place] 2:35 PM [facility] REPOSITORY TYPE CODE TESTS RESULT OUT OF RANGE REFERENCE UNITS LAB L501.5200 1.6-2.6 mg/dL Normal MG 2.1 Result Comment: Please note revised Magnesium reference range effective 2017. Performed By: #### L501.5200, L501.9520 #### [facility] [address], [address] THYROID STIM HORMONE Collected: 12/02/2017 Status: F Source: [place] (TSH) 2[facility]35 PM [facility] TYPE CODE TESTS RESULT OUT OF RANGE REFERENCE UNITS LAB L501.9520 0.358-3.74 uIU/mL Normal TSH 2.65 Performed By: #### L501.5200, L501.9520 #### [facility] [address] [place], [address] CHEST 1 VIEW Observed: 12/02/2017 Status: F Source: [place] (PORTABLE) 2:24 PM [facility] REPOSITORY [facility] Imaging Services [address] [place] [address] Chest 1 View (Portable) MR#: [id number] Acct: [id number] Name: MILAGROS STEVENSON Rep #: [id number] : 1935 F 82 From: Edward Barrett MD PCP: POLI MENDIETA Status: REG ER Study: Chest 1 View (Portable) Date of Exam: 12/02/17 Exam# [id number] Ordering Dr: Dm Feliciano MD STUDY: X-RAY [...] , CC: Dm Feliciano MD; POLI MENDIETA Armature And Rotor Winder: Signed XR CHEST 2 VIEWS Observed: 11/24/2017 Status: F Source: [place] 1:34 PM [facility] REPOSITORY ORIGINAL XR CHEST 2 VIEWS CLINICAL [...] 2 VIEWS Observed: 11/10/2017 Status: F Source: [place] 3:41 PM [facility] REPOSITORY ORIGINAL XR CHEST 2 VIEWS CLINICAL [...] SOURCE Drug oxycodone Anaphylaxis Unknown [place] [facility] Allergy/276671342( HCl/[id number] Community SNOM[facility] CT) (RXNORM) Hospital Repository Drug Sulfa Anaphylaxis Unknown [place] 9 Allergy/395964356( (Sulfonamide Community SNOMED CT) Antibiotics)/F Hospital [id number](RXNO Repository RM) Drug guaifenesin/F0 Unknown Unknown [place] 9 Allergy/716355946( 96155980(RXNOR Community SNOMED CT) M) Hospital Repository Drug phenylephrine/ Unknown Unknown [place] 9 Allergy/812236010( O298777428(RXN [facility] SNOM[facility]) ORM) Hospital Repository Drug clindamycin/F0 Unknown Unknown Romel 9 Allergy/301661700( 06135061(RXNOR Community SNOMED [facility]) M) Hospital Repository Drug phenylpropanol Unknown Unknown [place] 9 Allergy/261490611( amine/I5619699 Community SNOMED CT) 34(RXNORM) Hospital Repository Drug vancomycin/F00 Hives Unknown [place] 9 Allergy/059568693( 3130363(RXNORM Community SNOMED CT) ) Hospital Repository Miscellaneous BETA BLOCKERS Unknown Unknown [place] 9 Allergy/486035612( Community SNOM[facility]) Hospital Repository ENCOUNTERS ENCOUNTERS ADMIT/DISCHARGE ACCOUNT NUMBER ADMITTING ENCOUNTER LOCATION SOURCE CLASS 09/28/2018 [id number] Shahriar, Inpatient Romel [place] Ghasem Encounter [facility] ding:Guillermo Repository : [id number]: 1 09/28/2018 [id number] Ashelfah, Ambulatory BMSBuilding: Romel Ghasem BMS.Critical access hospital Repository 09/28/2018 [id number] Ahsanelf, Ambulatory BMSBuilding: Romel Ghasem BMS.Critical access hospital Repository 09/28/2018 [id number] Ashelf, Ambulatory BMSBuilding: Romel Ghasem BMS.Critical access hospital Repository 09/28/2018 [id number] Ahsanelfah, Ambulatory BMSBuilding: [place] Ghasem BMS.[facility] Repository 09/28/2018 [id number] [place]helfah, Ambulatory BMSBuilding: Romel Ghasem BMS.Critical access hospital Repository 09/28/2018 [id number] Stephanie, Ambulatory BMSBuilding: [place] Ghasem BMS.[facility] Repository 09/28/2018 [id number] [place]helf[place], Ambulatory BMSBuilding: Romel Ghasem BMS.Critical access hospital Repository 09/28/2018/09/28/19 [id number] Emergency BBuilding:ER [place] 19 [facility] Repository 09/15/2018 [id number] [place]helf[place], Ambulatory BMSBuilding: [place] Ghasem BMS.Critical access hospital Repository 09/15/2018 [id number] [place]helf[place], Ambulatory BMSBuilding: [place] Ghasem BMS.Critical access hospital Repository 09/15/2018 [id number] [place]helf[place], Ambulatory BMSBuilding: Romel Ghasem BMS.Critical access hospital Repository 09/15/2018 [id number] [place]helf[place], Ambulatory BMSBuilding: [place] Ghasem BMS.Critical access hospital Repository 09/15/2018 [id number] [place]helf[place], Ambulatory BMSBuilding: [place] Ghasem BMS.Critical access hospital Repository 09/15/2018/09/23/19 [id number] Ambulatory BMSBuilding: [place] 19 [facility] Repository 09/15/2018 [id number] [place]helf[place], Ambulatory BMSBuilding: [place] Ghasem BMS.Critical access hospital Repository 09/15/2018 [id number] [place]helf[place], Ambulatory BMSBuilding: [place] Ghasem BMS.Critical access hospital Repository 09/15/2018 [id number] [place]helf[place], Ambulatory BMSBuilding: Romel Ghasem BMS.Critical access hospital Repository 09/15/2018 [id number] [place]helf[place], Ambulatory BMSBuilding: Romel Ghasem BMS.Critical access hospital Repository 09/15/2018/09/23/19 [id number] Ashelfah, Inpatient Romel Romel 19 Ghasem Encounter [facility] Hospital ding:Guillermo Repository : [id number]: 1 09/10/2018/09/10/19 [id number] Ambulatory BBuilding:[facility] Critical access hospital Repository 09/01/2018/09/01/20 [id number] Ambulatory BBuilding:[place] 18 Critical access hospital Repository 08/17/2018 [id number] Ambulatory BMSBuilding: Romel [facility] Repository 08/16/2018 [id number] Sementi, Ambulatory BMSBuilding: Romel Sarah BMS.Critical access hospital Repository 08/16/2018 [id number] Sementi, Ambulatory BMSBuilding: [place] Sarah BMS.Critical access hospital Repository 08/16/2018 [id number] Sementi, Ambulatory BMSBuilding: Romel Sarah BMS.Critical access hospital Repository 08/16/2018 [id number] Sementi, Ambulatory BMSBuilding: Romel Sarah BMS.Critical access hospital Repository 08/16/2018/08/19/20 [id number] Sementi, Inpatient [address] ding:PCURoom Repository : [id number]: 1 04/12/2018/04/12/20 [id number] Ambulatory BMSBuilding: [address] Repository 04/12/2018/04/12/20 [id number] Ambulatory BMSBuilding: [address] Repository 04/11/2018 [id number] White, Ambulatory BMSBuilding: Romel Constance BMS.Critical access hospital Repository 04/11/2018 [id number] White, Ambulatory BMSBuilding: [place] Constance BMS.Critical access hospital Repository 04/11/2018/04/12/20 [id number] White, Ambulatory [address] ding:PCURoom Repository : [id number] 04/06/2018/04/06/20 [id number] Ambulatory BMSBuilding: Romel 18 BMS.[facility] Repository 03/11/2018/03/11/20 [id number] Emergency [address] ding:ED Repository 03/02/2018/03/02/20 [id number] Ambulatory BMSBuilding: Romel 18 BMS.[facility] Repository 01/27/2018 [id number] Ambulatory BMSBuilding: [facility] Repository 01/26/2018 [id number] Ambulatory [facility] ding:PSN Repository 01/20/2018 [id number] Ambulatory BMSBuilding: [facility] Repository 01/19/2018 [id number] Ambulatory [facility] ding:PSN Repository 12/25/2017/12/26/19 [id number] Ambulatory BMSBuilding: Romel BMS.[facility] Repository 12/21/2017 [id number] Ambulatory BMS [facility] Repository 12/02/2017/12/07/19 [id number] White, Inpatient Romel[address] ding:WA2Cycc Repository : [id number]: 1 12/02/2017 [id number] White, Ambulatory BMSBuilding: [place] [facility] Repository 12/02/2017 [id number] White, Ambulatory BMSBuilding: [place] BMS.Critical access hospital Repository 12/02/2017/12/07/19 [id number] Ambulatory BMSBuilding: [address] Repository 12/02/2017 [id number] White, Ambulatory BMSBuilding: [place] Constance BMS.Critical access hospital Repository 12/02/2017 [id number] White, Ambulatory BMSBuilding: Romel BMS.CF.[facility] Repository 12/02/2017 [id number] White, Ambulatory BMSBuilding: Romel BMS.Critical access hospital Repository 12/02/2017 [id number] White, Ambulatory BMSBuilding: [place] BMS..[facility] Repository 12/02/2017 [id number] White, Ambulatory BMSBuilding: Romel BMS.CF.[facility] Repository 12/02/2017 [id number] White, Ambulatory BMSBuilding: [place] Constance BMS..[facility] Repository 12/02/2017 [id number] White, Ambulatory BMSBuilding: Romel Constance BMS.Critical access hospital Repository 12/02/2017 [id number] Ambulatory BMSBuilding: [place] BMS.Critical access hospital Repository 11/24/2017/11/25/19 [id number] Ambulatory [address] ding:[facility] Repository 11/10/2017/11/11/19 [id number] [address] [facility] ding:[facility] Repository PAYERS PAYERS ENCOUNTER GUARANTOR PAYER SUBSCRIBER SOURCE 09/28/2018 EDRA A [id number] Primary EDRA A YODERDOB: Romel BLADIMIR Insurance:MEDICARE [id number] Health Main Campus A [facility] 07493Lrq: (330) Number: Repository [phone] () [id number] Date:2018-09-28 09/28/2018 Secondary EDRA A YODERDOB: [place] Insurance:MUTUAL OF [id number] Health Number: [facility] [id number] Repository Date:1018-83-24[place]DSBKN [place] [address]FJ: 09/28/2018 Tertiary NOT GIVENUNK [place] Insurance:SELF PAY [facility] Number: Effective Repository Date:2018-09-28 09/28/2018 EDRA A [id number] Primary EDRA A YODERDOB: [place] BLADIMIR Insurance:MEDICARE [id number] Health [facility] [address]Kdo: (330) Number: Repository [phone] () [id number] Date:2018-09-28 09/28/2018 Secondary EDRA A YODERDOB: [place] Insurance:MUTUAL OF [id number] Health Number: Hospital [id number] Repository Date:1642-60-26XSOFFY [place] [address]CZ: 09/28/2018 Tertiary NOT GIVENUNK [place] Insurance:SELF PAY [facility] Number: Effective Repository Date:2018-09-28 09/28/2018 EDRA A [id number] Primary EDRA A YODERDOB: [place] BLADIMIR Insurance:MEDICARE [id number] Health Upper [facility] [address]Fpk: (330) Number: Repository [phone] () [id number] Date:2018-09-28 09/28/2018 Secondary EDRA A YODERDOB: [place] Insurance:MUTUAL OF [id number] Health Number: [facility] [id number] Repository Date:9434-97-10SODKFD [place], [place] [address]PP: 09/28/2018 Tertiary NOT GIVENUNK Romel Insurance:SELF PAY [facility] Number: Effective Repository Date:2018-09-28 09/28/2018 EDRA A [id number] Primary EDRA A YODERDOB: Romel BLADIMIR Insurance:MEDICARE [id number] Health Upper [facility] [address]Pgc: (330) Number: Repository [phone] () [id number] Date:2018-09-28 09/28/2018 Secondary EDRA A YODERDOB: [place] Insurance:MUTUAL OF [id number] Health Number: [facility] [id number] Repository Date:1027-57-32IGQVVI [place], [place] [address]PA: 09/28/2018 Tertiary NOT GIVENUNK [place] Insurance:SELF PAY [facility] Number: Effective Repository Date:2018-09-28 09/28/2018 EDRA A [id number] Primary EDRA A YODERDOB: [place] BLADIMIR Insurance:MEDICARE [id number] Health Upper Valley [facility] [address]Hun: (330) Number: Repository [phone] () [id number] Date:2018-09-28 09/28/2018 Secondary EDRA A YODERDOB: Romel Insurance:MUTUAL OF [id number] Health Number: [facility] [id number] Repository Date:9002-66-45QCPALNCAIRO, [place] [address]KD: 09/28/2018 Tertiary NOT GIVENUNK [place] Insurance:SELF PAY [facility] Number: Effective Repository Date:2018-09-28 09/28/2018 EDRA A [id number] Primary EDRA A YODERDOB: [place] BLADIMIR Insurance:MEDICARE [id number] PART A [facility] [address]Psr: (330) Number: Repository [phone] () [id number] Date:2018-09-28 09/28/2018 Secondary EDRA A YODERDOB: [place] Insurance:MUTUAL OF [id number] Health Number: [facility] [id number] Repository Date:0263-01-06KPVUKC [place], [place] [address]JP: 09/28/2018 Tertiary NOT GIVENUNK Romel Insurance:SELF PAY [facility] Number: Effective Repository Date:2018-09-28 09/28/2018 EDRA A [id number] Primary EDRA A YODERDOB: Romel BLADIMIR Insurance:MEDICARE [id number] Health Main Campus A [facility] [address]Jjf: (330) Number: Repository [phone] () [id number] Date:2018-09-28 09/28/2018 Secondary EDRA A YODERDOB: Romel Insurance:MUTUAL OF [id number] Health Number: [facility] [id number] Repository Date:3660-55-91APPSNM [place], [place] [address]NZ: 09/28/2018 Tertiary NOT GIVENUNK Romel Insurance:SELF PAY [facility] Number: Effective Repository Date:2018-09-28 09/28/2018 EDRA A [id number] Primary EDRA A YODERDOB: Romel BLADIMIR Insurance:MEDICARE [id number] Health Main Campus A [facility] [address]9713Vki: (330) Number: Repository [phone] () [id number] Date:2018-09-28 09/28/2018 Secondary EDRA A YODERDOB: [place] Insurance:MUTUAL OF [id number] Health Number: [facility] [id number] Repository Date:9308-31-12SGJSMBCAIRO, [place] [address]CX: 09/28/2018 Tertiary NOT GIVENUNK Romel Insurance:SELF PAY [facility] Number: Effective Repository Date:2018-09-28 09/28/2018 EDRA YODERDOB: Primary EDRA YODERDOB: [facility] Insurance:MEDICARE [id number] [facility] PART B [address] Repository [place], [place] Number: [place] [address]Krr: (353) [id number] [address]Egj: Date:2018-09-28 [id number] ()Tel: [id number] () (WP) Name:[facility] 000-0000 () [address] [address]CW: 09/28/2018 Secondary EDRA YODERDOB: [facility] Insurance:MUTUAL OF [id number] Repository Number: [place] [id number] [address]Etx: (330) Date:2018-09-287257610-14-01Uerg ()Tel: (000) Name:[facility] [place] 000-0000 () [place], [place] [address]PV: 09/15/2018 EDRA A [id number] Primary EDRA A YODERDOB: [place] BLADIMIR Insurance:MEDICARE [id number] [place] PART A [facility] [address]Sye: (330) Number: Repository [phone] () [id number] Date:2018-09-15 09/15/2018 Secondary EDRA A YODERDOB: [place] Insurance:MUTUAL OF [id number] [facility] Number: [facility] [id number] Repository Date:4972-92-40QBVIDYCAIRO, [place] [address]DK: 09/15/2018 Tertiary NOT GIVENUNK [place] Insurance:SELF PAY [facility] Number: Effective Repository Date:2018-09-15 09/15/2018 EDRA A [id number] Primary EDRA A YODERDOB: Romel BLAD[place] Insurance:MEDICARE [id number] PART A [facility] 10378Hyn: (330) Number: Repository [phone] () [id number] Date:2018-09-15 09/15/2018 Secondary EDRA A YODERDOB: Romel Insurance:MUTUAL OF [id number] Health Number: Hospital [id number] Repository Date:1945-66-02IFBQET [place], [place] [address]PW: 09/15/2018 Tertiary NOT GIVENUNK [place] Insurance:SELF PAY [facility] Number: Effective Repository Date:2018-09-15 09/15/2018 EDRA A [id number] Primary EDRA A YODERDOB: Romel BLADIMIR Insurance:MEDICARE [id number] Health Main Campus A [facility] [address]Ubj: (330) Number: Repository [phone] () [id number] Date:2018-09-15 09/15/2018 Secondary EDRA A YODERDOB: Romel Insurance:MUTUAL OF [id number] Health Number: Hospital [id number] Repository Date:3529-26-27PQAQMP [place], [place] [address]LY: 09/15/2018 Tertiary NOT GIVENUNK [place] Insurance:SELF PAY [facility] Number: Effective Repository Date:2018-09-15 09/15/2018 EDRA A [id number] Primary EDRA A YODERDOB: [place] BLADIMIR Insurance:MEDICARE [id number] PART A [facility] [address]Yai: (330) Number: Repository [phone] () [id number] Date:2018-09-15 09/15/2018 Secondary EDRA A YODERDOB: Romel Insurance:MUTUAL OF [id number] Health Number: [facility] [id number] Repository Date:3048-69-72KJGTIKCAIRO, [place] [address]SJ: 09/15/2018 Tertiary NOT GIVENUNK Romel Insurance:SELF PAY [facility] Number: Effective Repository Date:2018-09-15 09/15/2018 EDRA A [id number] Primary EDRA A YODERDOB: Romel BLADIMIR Insurance:MEDICARE [id number] Health [facility] [address]Crw: (330) Number: Repository [phone] () [id number] Date:2018-09-15 09/15/2018 Secondary EDRA A YODERDOB: Romel Insurance:MUTUAL OF [id number] Health Number: [facility] [id number] Repository Date:1081-05-15KSQSDV [place], [place] [address]WF: 09/15/2018 Tertiary NOT GIVENUNK Romel Insurance:SELF PAY [facility] Number: Effective Repository Date:2018-09-15 09/15/2018 EDRA A [id number] Primary EDRA A YODERDOB: Romel BLADIMIR Insurance:MEDICARE [id number] Health Upper [facility] [address]Lmy: (330) Number: Repository [phone] () [id number] Date:2018-09-15 09/15/2018 Secondary EDRA A YODERDOB: [place] Insurance:MUTUAL OF [id number] Health Number: [facility] [id number] Repository Date:8270-68-55AIIGINCAIRO, [place] [address]ZT: 09/15/2018 Tertiary NOT GIVENUNK [place] Insurance:SELF PAY [facility] Number: Effective Repository Date:2018-09-15 09/15/2018 EDRA A [id number] Primary EDRA A YODERDOB: Romel BLADIMIR Insurance:MEDICARE [id number] Health Upper Valley [facility] Center [address]Zcc: (330) Number: Repository [phone] () [id number] Date:2018-09-15 09/15/2018 Secondary EDRA A YODERDOB: Romel Insurance:MUTUAL OF [id number] Health Number: Hospital [id number] Repository Date:9995-44-44FORAPZ [place], [place] [address]FG: 09/15/2018 Tertiary NOT GIVENUNK [place] Insurance:SELF PAY [facility] Number: Effective Repository Date:2018-09-15 09/15/2018 EDRA A [id number] Primary EDRA A YODERDOB: [place] BLADIMIR Insurance:MEDICARE [id number] Health Upper [facility] [address]Uhw: (330) Number: Repository [phone] () [id number] Date:2018-09-15 09/15/2018 Secondary EDRA A YODERDOB: Romel Insurance:MUTUAL OF [id number] Health Number: [facility] [id number] Repository Date:2703-23-80QEJUMT [place], [place] [address]PI: 09/15/2018 Tertiary NOT GIVENUNK [place] Insurance:SELF PAY [facility] Number: Effective Repository Date:2018-09-15 09/15/2018 EDRA A [id number] Primary EDRA A YODERDOB: Romel BLADIMIR Insurance:MEDICARE [id number] Health [facility] [address]Vwq: (330) Number: Repository [phone] () [id number] Date:2018-09-15 09/15/2018 Secondary EDRA A YODERDOB: [place] Insurance:MUTUAL OF [id number] Health Number: [facility] [id number] Repository Date:6859-26-82ODCDEZ [place], [place] [address]FR: 09/15/2018 Tertiary NOT GIVENUNK Romel Insurance:SELF PAY [facility] Number: Effective Repository Date:2018-09-15 09/15/2018 EDRA A [id number] Primary EDRA A YODERDOB: Romel BLADIMIR Insurance:MEDICARE [id number] Health [facility] 31021Qzc: (330) Number: Repository [phone] () [id number] Date:2018-09-15 09/15/2018 Secondary EDRA A YODERDOB: Romel Insurance:MUTUAL OF [id number] Health Number: Hospital [id number] Repository Date:5877-19-95QYRREU [place], [place] [address]QF: 09/15/2018 Tertiary NOT GIVENUNK Romel Insurance:SELF PAY [facility] Number: Effective Repository Date:2018-09-15 09/15/2018 EDRA A [id number] Primary EDRA A YODERDOB: Romel BLADIMIR Insurance:MEDICARE [id number] Health Upper [facility] [address]Rhp: (330) Number: Repository [phone] () [id number] Date:2018-09-15 09/15/2018 Secondary EDRA A YODERDOB: [place] Insurance:MUTUAL OF [id number] Health Number: Hospital [id number] Repository Date:2662-98-28KXGTBXCAIRO, [place] [address]WJ: 09/15/2018 Tertiary NOT GIVENUNK Romel Insurance:SELF PAY [facility] Number: Effective Repository Date:2018-09-15 09/10/2018 EDRA YODERDOB: Primary EDRA YODERDOB: [facility] [id number] Insurance:MEDICARE [id number] Foundation BL[place] PART B INSCOPolicy 9 BL[place] Repository OLEGARIO ALONSO Number: OLEGARIO ALONSO [id number]: 330 [id number] [address]Xbk: Date:2018-09-10264 (HP)Tel: (999) [phone] (HP) (WP) Name:[facility] 000-0000 () Administrators [address] [address]PS: 09/10/2018 Secondary EDRA YODERDOB: [facility] Insurance:MUTUAL OF [id number] [address] Repository Number: OLEGARIO ALONSO [id number] [address]Tpp: (330) Date:2018-09-100140-88-01Ilbv ()Tel: (000) Name:[facility] 000-0000 () SABINO CHU [address]JI: 09/01/2018 EDRA YODERDOB: Primary EDRA YODERDOB: [facility] Insurance:MEDICARE [id number] [facility] PART B [address] OLEGARIO ALONSO Number: OLEGARIO ALONSO [address]Hrz: (330) [id number] 036[address]Rav: Date:2018-09-01264 ()Tel: (999) [id number] () (WP) Name:[facility] 000-0000 () Administrators [address] [address]YQ: 09/01/2018 Secondary EDRA YODERDOB: [facility] Insurance:MUTUAL OF [id number] [address] Repository Number: OLEGARIO ALONSO [id number] [address]Trg: (330) Date:2018-09-012641526-27-54Phsw ()Tel: (305) Name:[facility] [place] 000-0000 () [place], [place] [address]XI: 08/17/2018 EDRA A [id number] Primary EDRA A YODERDOB: [place] BLADIMIR Insurance:MEDICARE [id number] PART A [facility] 156[address]Qds: (330) Number: Repository [phone] () [id number] Date:2018-08-16 08/17/2018 Secondary EDRA A YODERDOB: Romel Insurance:MUTUAL OF [id number] Health Number: [facility] [id number] Repository Date:5433-36-91ORXDCD [place], [place] [address]DJ: 08/17/2018 Tertiary NOT GIVENUNK [place] Insurance:SELF PAY [facility] Number: Effective Repository Date:2018-08-17 08/16/2018 EDRA A [id number] Primary EDRA A YODERDOB: [place] BLADIMIR Insurance:MEDICARE [id number] Health Main Campus A [facility] [address]Cnw: (330) Number: Repository [phone] () [id number] Date:2018-08-16 08/16/2018 Secondary EDRA A YODERDOB: Romel Insurance:MUTUAL OF [id number] Health Number: [facility] [id number] Repository Date:8842-67-43KFHPCX [place], [place] [address]BG: 08/16/2018 Tertiary NOT GIVENUNK [place] Insurance:SELF PAY [facility] Number: Effective Repository Date:2018-08-16 08/16/2018 EDRA A [id number] Primary EDRA A YODERDOB: Romel BLADIMIR Insurance:MEDICARE [id number], [place] PART A [facility] [address]Mes: (330) Number: Repository [phone] () [id number] Date:2018-08-16 08/16/2018 Secondary EDRA A YODERDOB: Romel Insurance:MUTUAL OF [id number] Health Number: [facility] [id number] Repository Date:5120-07-31LSPHWNWILMINGTON, [place] [address]TV: 08/16/2018 Tertiary NOT GIVENUNK Romel Insurance:SELF PAY [facility] Number: Effective Repository Date:2018-08-16 08/16/2018 EDRA A [id number] Primary EDRA A YODERDOB: [place] BLADIMIR Insurance:MEDICARE [id number] Health [facility] [address]Cty: (330) Number: Repository [phone] () [id number] Date:2018-08-16 08/16/2018 Secondary EDRA A YODERDOB: Romel Insurance:MUTUAL OF [id number] [place] [address] Number: [facility] [id number] Repository Date:5203-97-13QXBRVB [place], [place] [address]AT: 08/16/2018 Tertiary NOT GIVENUNK [place] Insurance:SELF PAY [facility] Number: Effective Repository Date:2018-08-16 08/16/2018 EDRA A [id number] Primary EDRA A YODERDOB: [place] BLADIMIR Insurance:MEDICARE [id number] Health [facility] [address]Whj: (330) Number: Repository [phone] () [id number] Date:2018-08-16 08/16/2018 Secondary EDRA A YODERDOB: [place] Insurance:MUTUAL OF [id number] [place] [address] Number: [facility] [id number] Repository Date:3454-68-72NATKJJWILMINGTON, [place] [address]TI: 08/16/2018 Tertiary NOT GIVENUNK [place] Insurance:SELF PAY [facility] Number: Effective Repository Date:2018-08-16 08/16/2018 EDRA A [id number] Primary EDRA A YODERDOB: [place] BLADIMIR Insurance:MEDICARE [id number] PART [place] [facility] 98[address]Uxf: (330) Number: Repository [phone] () [id number] Date:2018-08-16 08/16/2018 Secondary EDRA A YODERDOB: [place] Insurance:MUTUAL OF [id number] Health Number: [facility] [id number] Repository Date:4435-65-39CTHOSX [place], [place] [address]ZE: 08/16/2018 Tertiary NOT GIVENUNK [place] Insurance:SELF PAY [facility] Number: Effective Repository Date:2018-08-16 04/12/2018 EDRA A [id number] Primary EDRA A YODERDOB: Romel BLADIMIR Insurance:MEDICARE [id number] PART A [facility] [address]Ime: (330) Number: Repository [phone] () [id number] Date:2018-04-11 04/12/2018 Secondary EDRA A YODERDOB: Romel Insurance:MUTUAL OF [id number] Health Number: [facility] [id number] Repository Date:5820-30-96BJKHUS [place], [place] [address]KS: 04/12/2018 Tertiary NOT GIVENUNK [place] Insurance:SELF PAY [facility] Number: Effective Repository Date:2018-04-12 04/12/2018 EDRA A [id number] Primary EDRA A YODERDOB: Romel BLADIMIR Insurance:MEDICARE [id number] PART A [facility] [address]Lrz: (330) Number: Repository [phone] () [id number] Date:2018-04-11 04/12/2018 Secondary EDRA A YODERDOB: Romel Insurance:MUTUAL OF [id number] Health Number: [facility] [id number] Repository Date:1262-51-82VNDGOL [place], [place] [address]CY: 04/12/2018 Tertiary NOT GIVENUNK Romel Insurance:SELF PAY [facility] Number: Effective Repository Date:2018-04-12 04/11/2018 EDRA A [id number] Primary EDRA A YODERDOB: Romel BLADIMIR Insurance:MEDICARE [id number] Health [facility] [address]Unr: (330) Number: Repository [phone] () [id number] Date:2018-04-11 04/11/2018 Secondary EDRA A YODERDOB: [place] Insurance:MUTUAL OF [id number] Health Number: [facility] [id number] Repository Date:4066-71-27IFBNEE [place], [place] [address]WU: 04/11/2018 Tertiary NOT GIVENUNK [place] Insurance:SELF PAY [facility] Number: Effective Repository Date:2018-04-11 04/11/2018 EDRA A [id number] Primary EDRA A YODERDOB: [place] BLADIMIR Insurance:MEDICARE [id number] Health [facility] [address]Fie: (330) Number: Repository [phone] () [id number] Date:2018-04-11 04/11/2018 Secondary EDRA A YODERDOB: Romel Insurance:MUTUAL OF [id number] Health Number: [facility] [id number] Repository Date:7795-85-35ZNRASS [place], [place] [address]HC: 04/11/2018 Tertiary NOT GIVENUNK [place] Insurance:SELF PAY [facility] Number: Effective Repository Date:2018-04-11 04/11/2018 EDRA A [id number] Primary EDRA A YODERDOB: Romel BLADIMIR Insurance:MEDICARE [id number] Health [facility] [address]Hxf: (330) Number: Repository [phone] () [id number] Date:2018-04-11 04/11/2018 Secondary EDRA A YODERDOB: Romel Insurance:MUTUAL OF [id number] Health Number: [facility] [id number] Repository Date:8149-18-19OBDKJNWILMINGTON, [place] [address]UN: 04/11/2018 Tertiary NOT GIVENUNK [place] Insurance:SELF PAY [facility] Number: Effective Repository Date:2018-04-11 04/06/2018 EDRA A [id number] Primary EDRA A YODERDOB: Romel BL[place] Insurance:MEDICARE [id number] Health [facility] [address]Cii: (330) Number: Repository [phone] () [id number] Date:2018-03-02 04/06/2018 Secondary EDRA A YODERDOB: [place] Insurance:MUTUAL OF [id number] Health Number: [facility] [id number] Repository Date:8009-22-85OQHSKR [place], [place] [address]WM: 04/06/2018 Tertiary NOT GIVENUNK Romel Insurance:SELF PAY [facility] Number: Effective Repository Date:2018-03-30 03/11/2018 EDRA A [id number] Primary EDRA A YODERDOB: [place] BLADIMIR Insurance:MEDICARE [id number] Health [facility] [address]708Bny: (330) Number: Repository [phone] () [id number] Date:2018-03-11 03/11/2018 Secondary EDRA A YODERDOB: Romel Insurance:MUTUAL OF [id number] Health Number: [facility] [id number] Repository Date:8912-25-79FMXCVPWILMINGTON, [place] [address]PK: 03/11/2018 Tertiary NOT GIVENUNK Rom[place] Insurance:SELF PAY [facility] Number: Effective Repository Date:2018-03-11 03/02/2018 EDRA A [id number] Primary EDRA A YODERDOB: [place] BLAD[place]IR Insurance:MEDICARE [id number] Health [facility] [address]Vmc: (330) Number: Repository [phone] () [id number] Date:2017-12-29 03/02/2018 Secondary EDRA A YODERDOB: [place] Insurance:MUTUAL OF [id number] Health Number: Hospital [id number] Repository Date:9591-80-54NQWJCK [place], [place] [address]ZT: 03/02/2018 Tertiary NOT GIVENUNK Rom[place] Insurance:SELF PAY [facility] Number: Effective Repository Date:2018-02-23 01/27/2018 EDRA A [id number] Primary EDRA A YODERDOB: Romel BLADIMIR Insurance:MEDICARE [id number] Health [facility] [address]22Gai: (330) Number: Repository [phone] () [id number] Date:2017-12-29 01/27/2018 Secondary EDRA A YODERDOB: Romel Insurance:MUTUAL OF [id number] Health Number: [facility] [id number] Repository Date:3285-32-41AVAKUO [place], [place] [address]BH: 01/27/2018 Tertiary NOT GIVENUNK Romel Insurance:SELF PAY [facility] Number: Effective Repository Date:2018-01-27 01/26/2018 EDRA A [id number] Primary EDRA A YODERDOB: Romel BLADIMIR Insurance:MEDICARE [id number] Health [facility] [address]Hgy: (330) Number: Repository [phone] () [id number] Date:2017-12-29 01/26/2018 Secondary EDRA A YODERDOB: Romel Insurance:MUTUAL OF [id number] Health Number: [facility] [id number] Repository Date:3172-52-89PCWGEF [place], [place] [address]CB: 01/26/2018 Tertiary NOT GIVENUNK Rom[place] Insurance:SELF PAY [facility] Number: Effective Repository Date:2017-12-29 01/20/2018 EDRA A [id number] Primary EDRA A YODERDOB: [place] BLAD[place] Insurance:MEDICARE [id number] Health [facility] [address]Axp: (330) Number: Repository [phone] () [id number] Date:2017-12-29 01/20/2018 Secondary EDRA A YODERDOB: [place] Insurance:MUTUAL OF [id number] [place] [address] Number: Hospital [id number] Repository Date:0234-45-46RTBNJA [place], [place] [address]ON: 01/20/2018 Tertiary NOT GIVENUNK [place] Insurance:SELF PAY [facility] Number: Effective Repository Date:2018-01-20 01/19/2018 EDRA A [id number] Primary EDRA A YODERDOB: [place] BLADIMIR Insurance:MEDICARE [id number] Health [facility] [address]Ozl: (330) Number: Repository [phone] () [id number] Date:2017-12-29 01/19/2018 Secondary EDRA A YODERDOB: [place] Insurance:MUTUAL OF [id number] Health Number: Hospital [id number] Repository Date:7666-40-03WQGKRV [place] [address]XC: 01/19/2018 Tertiary NOT GIVENUNK [place] Insurance:SELF PAY [facility] Number: Effective Repository Date:2017-12-29 12/25/2017 EDRA A [id number] Primary EDRA A YODERDOB: Romel BL[place] Insurance:MEDICARE [id number] Health Upper [facility] [address]Dqz: (330) Number: Repository [phone] () [id number] Date:2017-12-08 12/25/2017 Secondary EDRA A YODERDOB: Romel Insurance:MUTUAL OF [id number] Health Number: [facility] [id number] Repository Date:5433-28-90WZDQUKWILMINGTON, [place] [address]OS: 12/25/2017 Tertiary NOT GIVENUNK [place] Insurance[facility]SELF [facility]: Effective Repository Date:2017-12-18 12/21/2017 Edra A [id number] Primary Edra A YoderDOB: [place] Insurance:MEDICARE [id number] [facility] [address]Hzh: (330) Number: Repository [phone] () [id number] Date:2017-12-21 12/21/2017 Secondary Edra A YoderDOB: Romel Insurance:MUTUAL OF [id number] Health Number: [facility] [id number] Repository Date:0095-29-77XEVUXJ [place], [place] [address]SN: 12/21/2017 Tertiary NOT GIVENUNK [place] Insurance:SELF PAY [facility] Number: Effective Repository Date:2017-12-21 12/02/2017 Edra A [id number] Primary Edra A YoderDOB: Romel [place] Insurance:MEDICARE [id number] Medical Specialty [facility] [address]Dpy: (330) Number: Repository [phone] () [id number] Date:2017-12-02 12/02/2017 Secondary Edra A YoderDOB: [place] Insurance:MUTUAL OF [id number] Health Number: [facility] [id number] Repository Date:2876-80-63TXAQVCWILMINGTON, [place] [address]BZ: 12/02/2017 Tertiary NOT GIVENUNK [place] Insurance:SELF PAY [facility] Number: Effective Repository Date:2017-12-02 12/02/2017 Edra A [id number] Primary Edra A YoderDOB: [place] Insurance:MEDICARE [id number] Medical Specialty [facility] [address]Tmv: (330) Number: Repository [phone] () [id number] Date:2017-12-02 12/02/2017 Secondary Edra A YoderDOB: Romel Insurance:MUTUAL OF [id number] Health Number: [facility] [id number] Repository Date:6550-60-14ZLEKLA [place], [place] [address]KZ: 12/02/2017 Tertiary NOT GIVENUNK Rom[place] Insurance:SELF PAY [facility] Number: Effective Repository Date:2017-12-02 12/02/2017 Edra A [id number] Primary Edra A YoderDOB: Romel [place] Insurance:MEDICARE [id number] Medical Specialty Hospital [facility] [address]Rki: (330) Number: Repository [phone] () [id number] Date:2017-12-02 12/02/2017 Secondary Edra A YoderDOB: [place] Insurance:MUTUAL OF [id number] Health Number: [facility] [id number] Repository Date:2918-75-21LUKRPM [place], [place] [address]MY: 12/02/2017 Tertiary NOT GIVENUNK Rom[place] Insurance:SELF PAY [facility] Number: Effective Repository Date:2017-12-02 12/02/2017 EDRA A [id number] Primary EDRA A YODERDOB: [place] BLADIMIR Insurance:MEDICARE [id number] Health [facility] [address]46Mvc: (330) Number: Repository [phone] () [id number] Date:2017-12-02 12/02/2017 Secondary EDRA A YODERDOB: [place] Insurance:MUTUAL OF [id number] Health Number: [facility] [id number] Repository Date:5569-79-87TOESTG [place] [address]SF: 12/02/2017 Tertiary NOT GIVENUNK [place] Insurance:SELF PAY [facility] Number: Effective Repository Date:2017-12-02 12/02/2017 Edra A [id number] Primary Edra A YoderDOB: [place] [facility] Insurance:MEDICARE [id number] Medical Specialty Hospital [facility] [address]Zdp: (330) Number: Repository [phone] () [id number] Date:2017-12-02 12/02/2017 Secondary Edra A YoderDOB: [place] Insurance:MUTUAL OF [id number] Health Number: Hospital [id number] Repository Date:7820-26-89LSUHSE [place], [place] [address]XH: 12/02/2017 Tertiary NOT GIVENUNK [place] Insurance:SELF PAY [facility] Number: Effective Repository Date:2017-12-02 12/02/2017 Edra A [id number] Primary Edra A YoderDOB: [place] Insurance:MEDICARE [id number] Medical Specialty Hospital [facility] [address]Uer: (330) Number: Repository [phone] () [id number] Date:2017-12-02 12/02/2017 Secondary Edra A YoderDOB: [place] Insurance:MUTUAL OF [id number] Health Number: Hospital [id number] Repository Date:2149-20-25FJWMHU [place], [place] [address]DQ: 12/02/2017 Tertiary NOT GIVENUNK [place] Insurance:SELF PAY [facility] Number: Effective Repository Date:2017-12-02 12/02/2017 Edra A [id number] Primary Edra A YoderDOB: Romel [place] Insurance:MEDICARE [id number] Medical Specialty Hospital [facility] [address]Xpx: (330) Number: Repository [phone] () [id number] Date:2017-12-02 12/02/2017 Secondary Edra A YoderDOB: [place] Insurance:MUTUAL OF [id number] Health Number: Hospital [id number] Repository Date:9230-07-32SAOGML [place] [address]MD: 12/02/2017 Tertiary NOT GIVENUNK [place] Insurance:SELF PAY [facility] Number: Effective Repository Date:2017-12-02 12/02/2017 Edra A [id number] Primary Edra A YoderDOB: [place] [facility] Insurance:MEDICARE [id number] Medical Specialty Hospital [facility] [place] [address]Alb: (330) Number: Repository [phone] () [id number] Date:2017-12-02 12/02/2017 Secondary Edra A YoderDOB: [place] Insurance:MUTUAL OF [id number] Health Number: Hospital [id number] Repository Date:9617-46-45YCANAQ [place], [place] [address]KR: 12/02/2017 Tertiary NOT GIVENUNK [place] Insurance:SELF PAY [facility] Number: Effective Repository Date:2017-12-02 12/02/2017 Edra A [id number] Primary Edra A YoderDOB: Romel [place] Insurance:MEDICARE [id number] Medical Specialty Hospital [facility] [address]Hgc: (330) Number: Repository [phone] () [id number] Date:2017-12-02 12/02/2017 Secondary Edra A YoderDOB: Rom[place] Insurance:MUTUAL OF [id number] Health Number: Hospital [id number] Repository Date:9303-73-06KXNJBN [place] [address]HG: 12/02/2017 Tertiary NOT GIVENUNK [place] Insurance:SELF PAY [facility] Number: Effective Repository Date:2017-12-02 12/02/2017 Edra A [id number] Primary Edra A YoderDOB: [place] Insurance:MEDICARE [id number] Medical Specialty Hospital [facility] [place] [address]Qmg: (330) Number: Repository [phone] () [id number] Date:2017-12-02 12/02/2017 Secondary Edra A YoderDOB: Rom[place] Insurance:MUTUAL OF [id number] Health Number: [facility] [id number] Repository Date:9489-09-12PELUVV [place], [place] [address]OT: 12/02/2017 Tertiary NOT GIVENUNK [place] Insurance:SELF PAY [facility] Number: Effective Repository Date:2017-12-02 12/02/2017 Edra A [id number] Primary Edra A YoderDOB: Romel [place] Insurance:MEDICARE [id number] Medical Specialty [facility] [address]Blf: (330) Number: Repository [phone] () [id number] Date:2017-12-02 12/02/2017 Secondary Edra A YoderDOB: Rom[place] Insurance:MUTUAL OF [id number] Health Number: [facility] [id number] Repository Date:4145-46-40QQGXTI [place] [address]JZ: 12/02/2017 Tertiary NOT GIVENUNK [place] Insurance:SELF PAY [facility] Number: Effective Repository Date:2017-12-02 12/02/2017 Edra A [id number] Primary Edra A YoderDOB: [place] [facility] Insurance:MEDICARE [id number] Medical Specialty Hospital [facility] [address]779Qzj: (330) Number: Repository [phone] () [id number] Date:2017-12-02 12/02/2017 Secondary Edra A YoderDOB: Rom[place] Insurance:MUTUAL OF [id number] Health Number: [facility] [id number] Repository Date:2490-03-14EAWEQR [place] [address]UQ: 12/02/2017 Tertiary NOT GIVENUNK [place] Insurance:SELF PAY [facility] Number: Effective Repository Date:2017-12-02 11/24/2017 EDRA YODERDOB: Primary EDRA YODERDOB: [facility] Insurance:MEDICARE [id number] [facility] PART BPolicy Number: [address] [place], [place] [id number] [place], [place] [address]Qlz: (330) Date:2017-11-24Tel: 3986-59-24Usqx [phone] (HP)Tel: (999) Name:[facility] () () [facility] 000-0000 () [address] [place] [address]UX: 11/24/2017 Secondary EDRA YODERDOB: [facility] Insurance:MUTUAL OF [id number] [facility] Number: 9 [facility] [id number] [place], [place] Date:2017-11-24Tel: 330 [id number] [phone] Name:[facility] ()Tel: (000) [place]UAN FR[place]COLILLYNEW [place] 000-0000 ([place]) [address]GA: 11/10/2017 EDRA YODERDOB: Primary EDRA YODERDOB: [facility] Insurance:MEDICARE [id number] [facility] PART BPolicy Number: [address] [place], [place] [id number] [place], [place] [address]Qjg: (330) Date:2017-11-10Tel: [id number] [phone] ()Tel: (999) Name:[facility] () (WP) Administrators LLCPO 000-0000 (WP) [address] [address]Adcdcuvaf, [place] [address]XZ: 11/10/2017 Secondary EDRA ONEIL: [facility] Insurance:MUTUAL OF [id number] [facility] Number: 9 [facility] [id number] [place], [place] Date:2017-11-10 [address]Nre: [phone] [phone] Name:[facility] [place] ()Tel: (000) SABINO CHU 000-0000 (WP) [address]JF:
--- OUTSIDE RECORDS SUMMARY | 2018-11-30 23:58 | XMS RPT_ITS ---
:1935 Author Organization OHIP Support Name Relationship Address Phone R Unavailable Unavailable Unavailable VIRAL STEVENSONIN Unavailable [address] + [place] [address] STEVENSON TILA Unavailable [address] + [place] [address] R Unavailable Unavailable Unavailable STEVENSONVIRALIN Unavailable [address] + [place] [address] STEVENSON, TILA Unavailable [address] + [place] [address] R Unavailable Unavailable Unavailable STEVENSON BRIGID Unavailable [address] + [place] [address] STEVENSON, TILA Unavailable [address] + [place] [address] R Unavailable Unavailable Unavailable STEVENSON, BRIGID Unavailable [address] + [place] [address] STEVENSON, TILA Unavailable [address] + [place] [address] R Unavailable Unavailable Unavailable STEVENSON, BRIGID Unavailable [address] + [place] [address] STEVENSON, TILA Unavailable [address] + [place] [address] R Unavailable Unavailable Unavailable STEVENSON, BRIGID Unavailable [address] + [place] [address] STEVENSON, TILA Unavailable [address] + [place] [address] R Unavailable Unavailable Unavailable STEVENSON, BRIGID Unavailable [address] + [place] [address] STEVENSON, TILA Unavailable [address] + [place] [address] R Unavailable Unavailable Unavailable STEVENSON, BRIGID Unavailable [address] + [place] [address] STEVENSON, TILA Unavailable [address] + [place] [address] STEVENSON, BRIGID Unavailable Unavailable + STEVENSON, BRIGID Unavailable Unavailable + STEVENSON, BRIGID Unavailable Unavailable + R Unavailable Unavailable Unavailable STEVENSON, BRIGID Unavailable [address] + [place] [address] STEVENSON, TILA Unavailable [address] + [place] [address] R Unavailable Unavailable Unavailable STEVENSON, BRIGID Unavailable [address] + [place] [address] STEVENSON, TILA Unavailable [address] + [place] [address] R Unavailable Unavailable Unavailable STEVENSON, BRIGID Unavailable [address] + [place] [address] STEVENSON, TILA Unavailable [address] + [place] [address] R Unavailable Unavailable Unavailable STEVENSON, BRIGID Unavailable [address] + [place] [address] STEVENSON, TILA Unavailable [address] + [place] [address] R Unavailable Unavailable Unavailable STEVENSON, BRIGID Unavailable [address] + [place] [address] STEVENSON, TILA Unavailable [address] + [place] [address] R Unavailable Unavailable Unavailable STEVENSON, BRIGID Unavailable [address] + [place] [address] STEVENSON, TILA Unavailable [address] + [place] [address] R Unavailable Unavailable Unavailable STEVENSON, BRIGID Unavailable [address] + [place] [address] STEVENSON, TILA Unavailable [address] + [place] [address] R Unavailable Unavailable Unavailable STEVENSON, BRIGID Unavailable [address] + [place] [address] STEVENSON, TILA Unavailable [address] + [place] [address] R Unavailable Unavailable Unavailable STEVENSON, BRIGID Unavailable [address] + [place] [address] STEVENSON, TILA Unavailable [address] + [place] [address] R Unavailable Unavailable Unavailable STEVENSON, BRIGID Unavailable [address] + [place] [address] STEVENSON, TILA Unavailable [address] + [place] [address] R Unavailable Unavailable Unavailable STEVENSON, BRIGID Unavailable [address] + [place] [address] STEVENSON, TILA Unavailable [address] + [place] [address] STEVENSON, BRIGID Unavailable Unavailable + STEVENSON, BRIGID Unavailable Unavailable + STEVENSON, BRIGID Unavailable Unavailable + STEVENSON, BRIGID Unavailable Unavailable + STEVENSON, BRIGID Unavailable Unavailable + STEVENSON, BRIGID Unavailable Unavailable + R Unavailable Unavailable Unavailable STEVENSON, BRIGID Unavailable [address] + [place] [address] STEVENSON, TILA Unavailable [address] + [place] [address] R Unavailable Unavailable Unavailable STEVENSON, BRIGID Unavailable [address] + [place] [address] STEVENSON, TILA Unavailable [address] + [place] [address] R Unavailable Unavailable Unavailable STEVENSON, BRIGID Unavailable [address] + [place] [address] STEVENSON, TILA Unavailable [address] + [place] [address] R Unavailable Unavailable Unavailable STEVENSON, BRGIID Unavailable [address] + [place] [address] STEVENSON, TILA Unavailable [address] + [place] [address] R Unavailable Unavailable Unavailable STEVENSON, BRIGID Unavailable [address] + [place] [address] STEVENSON, TILA Unavailable [address] + [place] [address] R Unavailable Unavailable Unavailable STEVENSON, BRIGID Unavailable [address] + [place] [address] STEVENSON, TILA Unavailable [address] + [place] [address] R Unavailable Unavailable Unavailable STEVENSON, BRIGID Unavailable [address] + [place] [address] STEVENSON, TILA Unavailable [address] + [place] [address] R Unavailable Unavailable Unavailable STEVENSON, BRIGID Unavailable [address] + [place] [address] STEVENSON, TILA Unavailable [address] + [place] [address] R Unavailable Unavailable Unavailable STEVENSON, BRIGID Unavailable [address] + [place] [address] STEVENSON, TILA Unavailable [address] + [place] [address] R Unavailable Unavailable Unavailable STEVENSON, BRIGID Unavailable [address] + [place] [address] STEVENSON, TILA Unavailable [address] + [place] [address] R Unavailable Unavailable Unavailable STEVENSON, BRIGID Unavailable [address] + [place] [address] STEVENSONWILFRIDEN Unavailable [address] + [place] [address] R Unavailable Unavailable Unavailable STEVENSONVIRALIN Unavailable [address] + [place] [address] STEVENSONWILFRIDEN Unavailable [address] + [place] [address] R Unavailable Unavailable Unavailable STEVENSONVIRALIN Unavailable [address] + [place] [address] STEVENSONWILFRIDEN Unavailable [address] + [place] [address] R Unavailable Unavailable Unavailable STEVENSONVIRALIN Unavailable [address] + [place] [address] STEVENSONWILFRIDEN Unavailable [address] + [place] [address] R Unavailable Unavailable Unavailable STEVENSONVIRALIN Unavailable [address] + [place] [address] STEVENSONWILFRIDEN Unavailable [address] + [place] [address] R Unavailable Unavailable Unavailable STEVENSONVIRALIN Unavailable [address] + [place] [address] STEVENSONWILFRIDEN Unavailable [address] + [place] [address] R Unavailable Unavailable Unavailable STEVENSONVIRALIN Unavailable [address] + [place] [address] STEVENSONWILFRIDEN Unavailable [address] + [place] [address] R Unavailable Unavailable Unavailable STEVENSON, BRIGID Unavailable [address] + [place] [address] STEVENSON, TILA Unavailable [address] + [place] [address] R Unavailable Unavailable Unavailable STEVENSON, BIRGID Unavailable [address] + [place] [address] STEVENSON, TILA Unavailable [address] + [place] [address] R Unavailable Unavailable Unavailable STEVENSON, BRIGID Unavailable [address] + [place] [address] STEVENSON, TILA Unavailable [address] + [place] [address] R Unavailable Unavailable Unavailable STEVENSON, BRIGID Unavailable [address] + [place] [address] STEVENSON, TILA Unavailable [address] + [place] [address] R Unavailable Unavailable Unavailable STEVENSON, BRIGID Unavailable [address] + [place] [address] STEVENSON, TILA Unavailable [address] + [place] [address] R Unavailable Unavailable Unavailable STEVENSON, BRIGID Unavailable [address] + [place] [address] STEVENSON, TILA Unavailable [address] + [place] [address] R Unavailable Unavailable Unavailable STEVENSON, BRIGID Unavailable [address] + [place] [address] STEVENSON, TILA Unavailable [address] + [place] [address] R Unavailable Unavailable Unavailable STEVENSON, BRIGID Unavailable [address] + [place] [address] STEVENSON, TILA Unavailable [address] + [place] [address] R Unavailable Unavailable Unavailable STEVENSON, BRIGID Unavailable [address] + [place] [address] STEVENSON, TILA Unavailable [address] + [place] [address] R Unavailable Unavailable Unavailable STEVENSON, BRIGID Unavailable [address] + [place] [address] STEVENSON, TILA Unavailable [address] + [place] [address] R Unavailable Unavailable Unavailable STEVENSON, BRIGID Unavailable [address] + [place] [address] STEVENSON, TILA Unavailable [address] + [place] [address] R Unavailable Unavailable Unavailable STEVENSON, BRIGID Unavailable [address] + [place] [address] STEVENSON, TILA Unavailable [address] + [place] [address] R Unavailable Unavailable Unavailable STEVENSON, BRIGID Unavailable [address] + [place] [address] STEVENSON, TILA Unavailable [address] + [place] [address] R Unavailable Unavailable Unavailable STEVENSON, BRIGID Unavailable [address] + [place] [address] STEVENSON, TILA Unavailable [address] + [place] [address] R Unavailable Unavailable Unavailable STEVENSON, BRIGID Unavailable [address] + [place] [address] STEVENSON, TILA Unavailable [address] + [facility] [address] STEVENSON, BRIGID Unavailable Unavailable + STEVENSON, BRIGID [...] Ghasem Admitting Unavailable Bakhous, Aziz Consulting Unavailable Young, John Attending Unavailable Ashelfah, Ghasem Admitting Unavailable Ashelfah, [...] Unavailable Bakhous, Aziz Consulting Unavailable Jopperi, Laci Attending Unavailable Moodispaw, Cornelius Consulting Unavailable Ashelfah, [...] Cornelius Consulting Unavailable Jopperi, Laci Consulting Unavailable ZACOUR, POLI Primary Care Unavailable White, Constance Admitting Unavailable Abdiel Brown, D.O. Consulting Unavailable Ashelfah, Ghasem Attending Unavailable White, Constance Attending Unavailable ZACOUR, POLI Primary Care Unavailable White, Constance Admitting Unavailable ZACOUR, POLI Primary Care Unavailable Abdiel Brown, D.O. Consulting Unavailable Paintsil, Lucile Attending Unavailable Imamura, Yoichi Consulting Unavailable White, Constance Admitting Unavailable Francia Braga ORACLE DATABASE ANALYST-C Attending Unavailable ZACOUR, POLI Primary Care Unavailable [...] Unavailable Abdiel Brown, D.O. Consulting Unavailable Paintsil, Lucile Attending Unavailable Imamura, Yoichi Consulting Unavailable White, [...] D.O. Consulting Unavailable Ashelfah, Ghasem Consulting Unavailable Wendy Carter Attending Unavailable Meseret Sommers Attending Unavailable ZACOUR, POLI Referring Unavailable Alistair Vidal Attending Unavailable Meseret Sommers Attending Unavailable Meseret Sommers Referring Unavailable ZACOUR, POLI Primary Care Unavailable Meseret Sommers Attending Unavailable Meseret Sommers Referring Unavailable ZACOUR, POLI Primary Care Unavailable Yayo Wilson Attending Unavailable Meseret Sommers Referring Unavailable Abdiel Mosley D.O. Attending Unavailable Meseret Sommers Referring Unavailable Abdiel Mosley D.O. Attending Unavailable ZACOUR, POLI Referring Unavailable ZACOUR, POLI Primary Care Unavailable ZACHARIAH SOLIS Attending Unavailable Tootie, Meseret Attending Unavailable ZACOUR, POLI Referring Unavailable ZACOUR, POLI Primary Care Unavailable White, Constance Admitting Unavailable Tereletsky, Jeanmarie Attending Unavailable White, Constance Admitting Unavailable White, Constance Attending Unavailable ZACOUR, POLI Primary Care Unavailable White, Constance Consulting Unavailable White, Constance Admitting Unavailable Tereletsky, Jeanmarie Attending Unavailable ZACOUR, POLI Primary Care Unavailable Tereletsky, Jeanmarie Consulting Unavailable Moodispaw, Cornelius Attending Unavailable White, Constance Referring Unavailable Moodispaw, Cornelius Attending Unavailable White, Constance Referring Unavailable ZACOUR, POLI Primary Care Unavailable Sarah Dowling Admitting Unavailable LennysFerdinand Consulting Unavailable Antonette Brown Attending Unavailable PROBLEMS PROBLEMS DATE TYPE CONDITION / CODE ATTENDING STATUS SOURCE 09/15/2018 Unknown 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, Alistair Active [facility]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 heart Community and chronic kidney Hospital disease with heart Repository failure and stage 1 through stage 4 chronic kidney disease, or unspecified chronic kidney disease / I13.0(ICD-10) 09/15/2018 Unknown I50.33 - Acute on Clive, Alistair Active [facility] chronic diastolic Community (congestive) heart Hospital failure / Repository I50.33(ICD-10) 05/24/2018 Unknown R06.02 - Shortness MoodisCornelius márquez Active [facility] of breath / Community R06.02(ICD-10) Hospital Repository 05/24/2018 Unknown R07.89 - Other Moodispaw, Cornelius Active [facility] chest pain / Community R07.89(ICD-10) Hospital Repository 10/01/2018 Unknown R07.9 - Chest Tereletsky, Active [facility] pain, unspecified Jeanmarie Community / R07.9(ICD-10) Hospital Repository 03/11/2018 Unknown R10.31 - Right ZACHARIAH SOLIS Active [facility] lower quadrant Community pain / Hospital R10.31(ICD-10) Repository 03/02/2018 Unknown J96.11 - Chronic Abdiel Mosley, Active [facility] respiratory D.O. 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, [address] BASIC METABOLIC Collected: 10/02/2018 Status: F Source: [place] PROFILE (BMP) 5:34 AM [facility] REPOSITORY TYPE CODE TESTS RESULT OUT OF [...] GAP 12 Performed By: #### L500.2500 #### [facility] [address] [place], [address] CONSULTATION Observed: 10/01/2018 Status: F Source: ROMEL 2:44 PM [facility] REPOSITORY [facility] Medical Records Department [address] [place] [address] Consultation 10/01/18 1416 MR#: [id number] Acct: [id number] Name: IMLAGROS STEVENSON Rep #: [id number] : 1935 83 From: Cornelius Mirza MD PCP: Poli Mendieta MD Status: ADM IN Y Location: [place] [id number] Problem List (1) Paroxysmal ventricular tachycardia Status: [...] variety of medical issues including concerns of bprax-xh-btposgj diastolic mediated CHF. Apparently during that hospitalization [...] with bradycardia and what appeared to be aozyk-id-satoewm renal insufficiency. Since her admission to the [...] with her permission, discussed with [facility] electrophysiology-Dr. Christophe Aguayo - who status [...] noting her previous noninvasive test results. 2. Bifbi-nd-yvacihl diastolic mediated CHF The patient will continue [...] medicine. 6. Renal insufficiency. The patient has uouoi-ey-fjpklrt renal insufficiency. Again there is hesitancy and [...] F Source: ROMEL PROFILE (BMP) 5:05 AM [facility] REPOSITORY TYPE CODE TESTS RESULT OUT OF [...] GAP 8 Performed By: #### L500.2500 #### [facility] [address] [place], [address] BASIC METABOLIC Collected: 09/30/2018 Status: F Source: [place] PROFILE ([facility]) 5:00 AM [facility] REPOSITORY TYPE CODE TESTS RESULT OUT OF [...] GAP Performed By: #### L500.2500, L501.5200 #### [facility] [address] [facility], [address] MAGNESIUM Collected: 09/30/2018 Status: F Source: [place] 5:00 AM [facility] REPOSITORY TYPE CODE TESTS RESULT OUT OF RANGE REFERENCE UNITS LAB L501.5200 1.6-2.6 mg/dL Normal MG 2.0 Result Comment: Slight Hemolysis, Result may be falsely increased. Performed By: #### L500.2500, L501.5200 #### [facility] [address] [place], [address] CONSULTATION Observed: 09/29/2018 Status: F Source: [place] 9:29 AM [facility] REPOSITORY [facility] Medical Records Department [address] [place] [address] Consultation 09/29/18 0916 MR#: [id number] Acct: [id number] Name: MILAGROS STEVENSON Rep #: [id number] : 1935 83 From: Ferdinand Aleman MD PCP: Poli Mendieta MD Status: ADM IN Y Location: [place] [id number] Problem List (1) Acute kidney injury superimposed [...] to give up . Patient presented to [facility] where her kidney function was found to be worse with a creatinine 2.9 mg a deciliter Along with UTI . Patient was given 1 L of normal saline and Rocephin and transferred to [facility] . Patient states she is feeling slightly [...] Medications Current Medications: Current Medications Hydrocodone Bitart/Acetaminophen ([place] 5mg-325mg) 1 tablet PO TID PRN PRN PRN Reason: PAIN Al Hydroxide/Mg Hydroxide (Mylanta Ii) 30 ml PO Q6H PRN PRN PRN Reason: Gastric burning Albuterol/Ipratropium (Duoneb) 3 ml INHALATION Q4H PRN PRN Reason: sob Albuterol/Ipratropium (Duoneb) 3 ml INHALATION Q6HWA.RT KARL Last Admin: 09/29/18 07:00 Dose: Not Given Aspirin (Aspirin) 325 mg PO DAILY@0800 [facility] Last Admin: 09/29/18 09:01 Dose: 325 mg Cholecalciferol (Vitamin D) 2,000 unit PO DAILY [facility] Last Admin: 09/29/18 09:01 Dose: 2,000 unit Heparin Sodium (Porcine) (Heparin Na) 5,000 unit SC Q12 [facility] Last Admin: 09/29/18 09:01 Dose: 5,000 unit Hydralazine HCl (Apresoline) 25 mg PO TID [facility] Last Admin: 09/29/18 07:29 Dose: 25 mg Ceftriaxone Sodium (Rocephin) 1 gm in 50 mls @ 100 mls/hr IV Q24H [facility] Last Admin: 09/29/18 09:00 Dose: 100 mls/hr [...] Collected: 09/29/2018 Status: F Source: [place] PROFILE ([facility]) 5:20 AM [facility] REPOSITORY TYPE CODE TESTS RESULT OUT OF [...] GAP 9 Performed By: #### L500.2500 #### [facility] [address] [place], [address] CBC W/DIFF, AUTOMATED Collected: 09/29/2018 Status: F Source: ROMEL 5:20 AM [facility] REPOSITORY TYPE CODE TESTS RESULT OUT OF [...] Lymph 1.71 Performed By: #### L100.0100 #### [facility] [address] [place], [address] URINALYSIS, COMPLETE Collected: 09/28/2018 Status: F Source: [place] 9:15 PM [facility] REPOSITORY Order Comment: Has pt arrived? Y [...] URINE SEEN Performed By: #### L400.0001 #### [facility] [address] [place], [address] Observed: 09/28/2018 Status: F Source: ROMEL CULTURE, URINE 9:15 PM [facility] REPOSITORY Has pt arrived? Y Urine Culture Below infection level. ORGANISM 1: Mixed Gram Positive Organisms [place] Count <1000 Performed By: #### M100.0650 #### [facility] [address] [place], [address] HISTORY AND PHYSICAL Observed: 09/28/2018 Status: F Source: [place] EXAM 9:05 PM [facility] REPOSITORY [facility] Medical Records Department [address] [place] [address] History and Physical 09/28/182027 MR#: [id number] Acct: [id number] Name: MILAGROS STEVENSON Rep #: [id number] : 1935 83 From: John Vidal MD PCP: Poli Mendieta MD Status: ADM IN Y Location: [place] [address] Problem List (1) Near syncope Status: Acute [...] arthritis. She is a direct transfer from [facility] for management of nonspecific symptoms including UTI [...] arthritis. She is a direct transfer from [facility] ER for management of nonspecific [...] 1 L of normal saline in the [facility] ER. Chest x-ray PA and lateral ordered. Troponin negative. N- terminal proBNP 6219. 2. Asymptomatic bacteriuria/possible UTI: Repeat UA and urine culture ordered. Continue empirically Rocephin started in [facility] ER. 3. Arrhythmia: Sinus bradycardia, NSVT: EKG and altered mental orbital ER shows sinus bradycardia at 54 bpm, normal AK interval, normal QRS interval nonspecific ST-T changes. [...] RVSP 72 mmHg. Patient was seen by finisher tailor apprentice was treated with Lasix drip and Zaroxolyn [...] g% Code Visit Inpatient E AND M: [id number] Init Hosp L3 09/28/185 <Electronically signed by John Vidal MD> Date John Vidal MD Cosigner Signature: Date (if applicable) CC: John Vidal MD; Poli Mendieta MD Signed CHEST PA AND LATERAL Observed: 09/28/2018 Status: F Source: [place] 8:36 PM [facility] REPOSITORY [facility] [place] [address] Chest PA and Lateral MR#: [id number] Acct: [id number] Name: MILAGROS STEVENSON Rep #: [id number] : 1935 F 83 From: Yair Gage MD PCP: Poli Mendieta MD Status: ADM IN Study: Chest PA and Lateral Date of Exam: 09/28/18 Exam# [id number] Ordering Dr: John Vidal MD STUDY: X-RAY [...] CC: John Vidal MD; Poli Mendieta MD Stencil Typist: Signed Observed: 09/28/2018 Status: F Source: [facility] 2:43 PM [facility] REPOSITORY . MICRO - Microbiology PROCEDURE: Urine [...] Locations *1: This test was performed at: [address], [facility] , [facility] Performed By: #### CUR #### [address] [address] UA Collected: 09/28/2018 Status: F Source: [facility] 1:23 PM [facility] REPOSITORY [...] Trace Performed By: #### UA, UAMICAO #### [place] [address] .URINALYSIS MICROSCOPIC Collected: 09/28/2018 Status: F Source: [facility] 1:23 [facility] REPOSITORY TYPE CODE TESTS RESULT OUT OF RANGE REFERENCE UNITS LAB WBCUA(LOIN None Seen /hpf C) Unknown UA WBC 5-10 LAB RBCUA(LOIN None Seen /hpf C) UA RBC None Seen LAB EPIUA(LOIN None Seen /hpf C) Unknown UA Squam Epithelial 0-5 LAB BACUA(LOIN /hpf C) Unknown UA Bacteria 4+ Performed By: #### UA, UAMICAO #### [place] [address] MG Collected: 09/28/2018 Status: F Source: [facility] 1:06 [facility] REPOSITORY TYPE CODE TESTS RESULT OUT OF REFERENCE UNITS RANGE LAB MG(LOINC) 1.8-2.4 mg/dL Magnesium Lvl 1.8 Performed By: #### TROP, PBNP, MG, CMP, GFR #### [place] [address] #### CBC, DIFF, MORPH #### [address] [address] CMP Collected: 09/28/2018 Status: F Source: [facility] 1:06 [facility] REPOSITORY Order Comment: Hemolysed - please [...] #### TROP, PBNP, MG, CMP, GFR #### [address] [address] #### CBC, DIFF, MORPH #### [address] [address] .GFR Collected: 09/28/2018 Status: F Source: [facility] 1:06 [facility] REPOSIT[facility] TYPE CODE TESTS RESULT OUT OF REFERENCE UNITS RANGE LAB GFRAA(LOINC ml/min/1.73 ) sqm GFR 19 Citizen [place] Result Comment: GFR Population mean for , [...] #### TROP, PBNP, MG, CMP, GFR #### [address] [address] #### CBC, DIFF, MORPH #### [address] [address] XR CHEST 1 VIEW Observed: 09/28/2018 Status: F [facility]: [facility] [facility] 12:36 PM [facility] REPOSITORY ORIGINAL XR CHEST 1 VIEW PORTABLE [...] significant change from prior exam. Interpreted By: Alsyia Leger MD Preliminary Report By: Alysia Leger MD Electronically Signed By: Alysia Leger MD Dictated Date: 09/28/2018 12:39:43 PM Prelim Date: 09/28/2018 12:39:43 PM Sign Date: 09/28/2018 12:40:29 PM TROP Collected: 09/28/2018 Status: F Source: [facility] 12:29 [facility] REPOSITORY TYPE CODE TESTS RESULT OUT OF REFERENCE UNITS RANGE LAB TROP(LOINC) 0.000-0.040 ng/mL Troponin 0.032 Result Comment: Troponin I reference range: 0.00-0.040 ng/mL Negative and non-diagnostic. >0.040 ng/mL Consistent with cardiac damage, increased clinical risk and possibility of myocardial infarction. Serial measurements, a rise & fall in test results, clinical history, appropriate symptoms and/or ECG changes may help assess possibility of TN. *Other non-acute coronary syndrome conditions such as CHF, myocarditis, pulmonary emboli, sepsis and cardiac surgery could result in myocardial damage and increased troponin levels. Performed By: #### TROP, PBNP, MG, CMP, GFR #### [place] [address] #### CBC, DIFF, MORPH #### [address] [address] PBNP Collected: 09/28/2018 Status: F Source: [facility] 12:29 [facility] TYPE CODE TESTS RESULT OUT OF REFERENCE UNITS RANGE LAB PBNP(LOINC) 0-450 pg/mL High N-Terminal 6219 proBNP Result Comment: NT-proBNP results of less than 300 pg/mL effectively rules out acute congestive heart failure with 99% negative predictive value. Performed By: #### TROP, PBNP, MG, CMP, GFR #### [place] [address] #### CBC, DIFF, MORPH #### [address] [address] CBC Collected: 09/28/2018 Status: F Source: [facility] 12:29 [facility] REPOSITORY TYPE CODE TESTS RESULT OUT [...] #### TROP, PBNP, MG, CMP, GFR #### [place] [address] #### CBC, DIFF, MORPH #### [address] [address] .MANUAL DIFF Collected: 09/28/2018 Status: F Source: [facility] 12:29 PM [facility] REPOSITORY [...] #### TROP, PBNP, MG, CMP, GFR #### [address] [address] #### CBC, DIFF, MORPH #### [address] [address] .MORPH Collected: 09/28/2018 Status: F Source: [facility] 12:29 PM [facility] REPOSITORY TYPE CODE TESTS RESULT OUT OF REFERENCE UNITS RANGE LAB PLTE(LOINC) Platelet Normal Estimate LAB TGR(LOINC) Toxic Gran Slight Performed By: #### TROP, PBNP, MG, CMP, GFR #### [facility] [address] [place] [address] #### CBC, DIFF, MORPH #### [facility] [address] [place], [place] [address] DISCHARGE SUMMARY Observed: 2018 Status: F Source: [place] 6:14 PM [facility] REPOSITORY [facility] Medical Records Department [address] [place] [address] [place] [address] Discharge Summary 09/23/18 1027 MR#: [id number] Acct: [id number] Name: MILAGROS STEVENSON Rep #: [id number] : 1935 83 From: Wendy Cummings ORACLE DATABASE ANALYST-C PCP: Poli Mendieta MD Status: DIS IN Y Location: [id number] <Wendy Cummings - Last Filed: 09/23/18 10:50> [...] D3] 2,000 unit PO DAILY 09/15/18 Hydrocodone/Acetaminophen [Camden 5-325 Tablet] 1 tab PO TID PRN [...] MR. LA moderately enlarged. Patient seen by finisher tailor apprentice. Started on Lasix drip and Zaroxolyn. Dr. [...] 200 mg twice daily after discussion with financial coach. Patient follows Dr. vidal. Plan of care [...] instructions. I have discussed my assessment with ORACLE DATABASE ANALYSTWendy and orders have been reviewed. [] Subjective: [...] 11 Code Visit Inpatient E AND M: 52844 Disch Hosp 09/23/18 1051 <Electronically signed by Wendy CRESPO> Date Wendy CRESPO 09/23/181813<Electronically signed by John Vidal MD> Cosigner Signature (if applicable): Date John Vidal MD CC: ZAK Cummings; John Vidal MD; Poli Mendieta MD Signed DISCHARGE INSTRUCTION Observed: 2018 Status: F Source: [place] 10:33 AM [facility] REPOSITORY [facility] Medical Records Department [address] [place] [address] Instructions for Home/Discharge Instructions 09/23/18 1022 MR#: [id number] Acct: [id number] Name: MILAGROS STEVENSON Rep #: [id number] : 1935 83 From: Wendy CRESPO PCP: Poli Mendieta MD Status: ADM IN ADDENDUM by ORACLE DATABASE ANALYSTThea Cummings on 09/23/18 at 1033 Patient follows [...] D3] 2,000 unit PO DAILY 09/15/18 Hydrocodone/Acetaminophen [Cam[place] 5-325 Tablet] 1 tab PO TID PRN [...] F Source: [place] PROFILE (BMP) 5:40 AM [facility] REPOSITORY TYPE CODE TESTS RESULT OUT OF [...] GAP 11 Performed By: #### L500.2500 #### [facility] [address] [place], [address] BASIC METABOLIC Collected: 09/22/2018 Status: F Source: [place] PROFILE ([facility] 5:10 AM [facility] REPOSITORY TYPE CODE TESTS RESULT OUT OF [...] GAP 11 Performed By: #### L500.2500 #### [facility] [address] [facility], [address] MAGNESIUM Collected: 09/22/2018 Status: F Source: [place] 5:10 AM [facility] REPOSITORY TYPE CODE TESTS RESULT OUT OF RANGE REFERENCE UNITS LAB L501.5200 1.6-2.6 mg/dL Normal MG 2.5 Performed By: #### L501.5200 #### [facility] [address] [facility], [address] ECHOCARDIOGRAM COMPLETE Observed: 09/21/2018 Status: F Source: [place] 3:36 PM [facility] REPOSITORY [facility] Cardiovascular Services [address] [place] [address] Echo Complete 09/21/18 1409 MR#: [id number] Acct: [id number] Name: MILAGROS STEVENSON Rep #: [id number] : 1935 82 From: Cornelius Mirza MD [...] Date Dictated: 09/21/18 1409 Date Transcribed: 09/21/181535 Stencil Typist: Signed BASIC METABOLIC Collected: 09/21/2018 Status: F Source: [place] PROFILE (BMP) 6:50 AM [facility] REPOSITORY TYPE CODE TESTS RESULT OUT OF [...] GAP 9 Performed By: #### L500.2500 #### [facility] [address] [place] [place], [address] 12 LEAD ELECTROCARDIOGRAM Observed: 09/20/2018 Status: F Source: [place] 10:20 AM [facility] REPOSITORY [facility] Cardiovascular Services [address] [place] [address] 12 Lead EKG 09/16/18 0520 MR#: [id number] Acct: [id number] Name: GRAHAMMILAGROS Champion Rep #: [id number] : 1935 82 From: Alistair Vidal MD Attending Dr: John Vidal MD Status: ADM IN Ordering Dr: Antonette Brown MD Date: 09/16/18 Location: [facility] Sex: F C Admitted: 09/15/18 [...] UNCONFIRMED Confirmed by CLIVE SHELDON, ALISTAIR ([id number]), field map editor SUNSHINE STODDARD ([id number]) on 09/20/2018 10:20:35 AM Referred By: DR BROWN Confirmed By:ALISTAIR VIDAL MD 09/20/18 1020 Date Alistair Vidal MD CC: Antonette Brown; John Vidal MD; Poli Mendieta MD Signed 12 LEAD ELECTROCARDIOGRAM Observed: 09/20/2018 Status: F Source: [place] 10:03 AM [facility] REPOSITORY [facility] Cardiovascular Services [address] [place] [address] 12 Lead EKG 09/15/18 1153 MR#: [id number] Acct: [id number] Name: MILAGROS STEVENSON Rep #: [id number] : 1935 82 From: Alistair Vidal MD Attending Dr: John Vidal MD Status: ADM IN Ordering Dr: Dario Roy MD Date: 09/15/18 Location: [facility] Sex: F C Admitted: 09/15/18 [...] ECG Confirmed by CLIVE SHELDON, ALISTAIR ([id number]), field map editor SUNSHINE STODDARD ([id number]) on 09/20/2018 10:02:35 AM Referred By: ALBERT Confirmed By:ALISTAIR VIDAL MD 09/20/18 1002 Date Alistair Vidal MD CC: Dario Roy MD; John Vidal MD; Poli Mendieta MD Signed CHEST PA AND LATERAL Observed: 09/20/2018 Status: F Source: [place] 8:45 AM [facility] Imaging Services [address] [place] [address] Chest PA and Lateral MR#: [id number] Acct: [id number] Name: MILAGROS STEVENSON Rep #: [id number] : 1935 F 82 From: Bianca Rutherford MD PCP: Poli Mendieta MD Status: ADM IN Study: Chest PA and Lateral Date of Exam: 09/20/18 Exam# [id number] Ordering Dr: Mat Ash STUDY: X-RAY CHEST [...] , CC: JOYCE Ash; Poli Mendieta MD Stencil Typist: Signed BASIC METABOLIC Collected: 09/20/2018 Status: F Source: [place] PROFILE (BMP) 4:45 AM [facility] REPOSITORY TYPE CODE TESTS RESULT OUT OF [...] GAP 12 Performed By: #### L500.2500 #### [facility] [address] [place], [address] CONSULTATION Observed: 09/19/2018 Status: F Source: [place] 4:12 PM [facility] REPOSITORY [facility] Medical Records Department [address] [place] [address] Consultation 09/19/18 1605 MR#: [id number] Acct: [id number] Name: MILAGROS STEVENSON Rep #: [id number] : 1935 82 From: Ferdinand Aleman MD PCP: Poli Mendieta MD Status: ADM IN Location: [place] [address] Problem List (1) Acute kidney injury superimposed [...] 09/16/18 14:53 Dose: 650 mg Hydrocodone Bitart/Acetaminophen (Camden 5mg-325mg) 1 tablet PO TID PRN PRN PRN Reason: PAIN Albuterol Sulfate (Ventolin Aerosols) 2.5 mg INHALATION Q4H PRN PRN PRN Reason: Shortness of breath, wheezing Albuterol/Ipratropium (Duoneb) 3 ml INHALATION Q6H.RT [facility] Last Admin: 09/19/18 13:04 Dose: 3 ml Amlodipine Besylate (Norvasc) 10 mg PO DAILY [facility] Last Admin: 09/19/18 10:34 Dose: 10 mg Aspirin (Aspirin) 325 mg PO DAILY@0800 [facility] Last Admin: 09/19/18 08:53 Dose: 325 mg Diltiazem HCl (Cardizem) 60 mg PO Q8 [facility] Last Admin: 09/19/18 14:18 Dose: 60 mg Estrogens Conjugated (Premarin) 0.3 mg PO QHS [facility] Last Admin: 09/18/18 21:39 Dose: 0.3 mg Furosemide (Lasix) 60 mg IV BID@1000,1800 [facility] Heparin Sodium (Porcine) (Heparin Na) 5,000 unit SC Q8 [facility] Last Admin: 09/19/18 14:18 Dose: 5,000 unit Hydralazine HCl (Apresoline) 25 mg PO TID [facility] Last Admin: 09/19/18 14:18 Dose: 25 mg [...] F Source: [place] PROFILE (BMP) 5:10 AM [facility] REPOSITORY TYPE CODE TESTS RESULT OUT OF [...] GAP 12 Performed By: #### L500.2500 #### [facility] [address] [place], [place], [address] BASIC METABOLIC Collected: 09/18/2018 Status: F Source: [place] PROFILE (BMP) 5:12 AM [facility] REPOSITORY TYPE CODE TESTS RESULT OUT OF [...] GAP 11 Performed By: #### L500.2500 #### [facility] [address] [place], [place], [address] BASIC METABOLIC Collected: 09/17/2018 Status: F Source: [place] PROFILE (BMP) 5:10 AM [facility] REPOSITORY TYPE CODE TESTS RESULT OUT OF [...] 11 Performed By: #### L500.2500, L501.5200 #### [facility] [address] [facility]. [place], [place], [address] MAGNESIUM Collected: 09/17/2018 Status: F Source: [place] 5:10 AM [facility] REPOSITORY TYPE CODE TESTS RESULT OUT OF RANGE REFERENCE UNITS LAB L501.5200 1.6-2.6 mg/dL Normal MG 2.1 Performed By: #### L500.2500, L501.5200 #### [facility] [address] [place], [address] CBC W/DIFF, AUTOMATED Collected: 09/16/2018 Status: F Source: [place] 6:45 AM [facility] REPOSITORY TYPE CODE TESTS RESULT OUT OF [...] Lymph 1.17 Performed By: #### L100.0100 #### [facility] [address] [place], [address] BASIC METABOLIC Collected: 09/16/2018 Status: F Source: [place] PROFILE (BMP) 6:45 AM [facility] REPOSITORY TYPE CODE TESTS RESULT OUT OF [...] 10 Performed By: #### L500.2500, L501.5200 #### [facility] [address] [place], [place], [address] MAGNESIUM Collected: 09/16/2018 Status: F Source: [place] 6:45 AM [facility] REPOSITORY TYPE CODE TESTS RESULT OUT OF RANGE REFERENCE UNITS LAB L501.5200 1.6-2.6 mg/dL Normal MG 2.1 Performed By: #### L500.2500, L501.5200 #### [facility] [address] [place], [place], [address] URIC ACID Collected: 09/16/2018 Status: F Source: [place] 6:45 AM [facility] REPOSITORY Order Comment: Comments: add on TYPE CODE TESTS RESULT OUT OF RANGE REFERENCE UNITS LAB L501.1400 2.6-6.0 mg/dL High URIC 10.8 Result Comment: The drugs N-Acetylcysteine and Metamizole may falsely depress this assay. Performed By: #### L501.1400 #### [facility] [address] [place], [place], [address] TROPONIN-I Collected: 09/15/2018 Status: F Source: [place] 5:59 PM [facility] REPOSITORY Order Comment: 'TROP' Serial specimen #1, #2 or #3: 3 TYPE CODE TESTS RESULT OUT OF RANGE REFERENCE UNITS LAB L501.4010 <0.045 ng/mL High 0.056 TROPONIN-I Result Comment: TROPONIN-I EXPECTED VALUES <0.045 Negative 0.045 - 0.590 Consistent with Cardiac Damage > OR = 0.600 Critical Value Not every elevated troponin is indicative of TN. These values should be used with clinical judgement in examining the patient's clinical picture for diagnosis. To establish a diagnosis of TN versus myocardial injury, there must be a demonstrated rise and/or fall in the troponin values, in addition to ischemic symptoms, EKG changes, new regional wall motion abnormality, and/or angiographical evidence. PLEASE NOTE: REFERENCE RANGES EDITED 18 Performed By: #### L501.4010 #### [facility] [address] [facility], [address] EMERGENCY DEPARTMENT Observed: 09/15/2018 Status: F Source: [place] SUMMARY 4:57 PM [facility] REPOSITORY [facility] Medical Records Department [address] [place] [address] Emergency Department Summary 09/15/18 1138 MR#: [id number] Acct: [id number] Name: MILAGROS STEVENSON Rep #: [id number] : 1935 82 From: Dario Roy MD [...] renal insufficiency This note was generated with Helleroy dictation software. It may contain incorrect words, [...] problems, contact your Primary Care Provider. Call [facility] ([phone]) or report to the closest Emergency Room. Call 911 if necessary. 09/15/18 2317 <Electronically signed by Dario Roy MD> Date Dario Roy MD Cosigner Signature (If Indicated): Date CC: Poli Mendieta MD TROPONIN-I Collected: 09/15/2018 Status: F Source: [place] 3:33 PM [facility] REPOSITORY Order Comment: 'TROP' Serial specimen #1, #2 or #3: 2 TYPE CODE TESTS RESULT OUT OF RANGE REFERENCE UNITS LAB L501.4010 <0.045 ng/mL High 0.051 TROPONIN-I Result Comment: TROPONIN-I EXPECTED VALUES <0.045 Negative 0.045 - 0.590 Consistent with Cardiac Damage > OR = 0.600 Critical Value Not every elevated troponin is indicative of TN. These values should be used with clinical judgement in examining the patient's clinical picture for diagnosis. To establish a diagnosis of TN versus myocardial injury, there must be a demonstrated rise and/or fall in the troponin values, in addition to ischemic symptoms, EKG changes, new regional wall motion abnormality, and/or angiographical evidence. PLEASE NOTE: REFERENCE RANGES EDITED 18 Performed By: #### L501.4010 #### [facility] [address] [facility], [address] HISTORY AND PHYSICAL Observed: 09/15/2018 Status: F Source: [place] EXAM 1:43 PM [facility] REPOSITORY [facility] Medical Records Department [address] [place] [address] History and Physical 09/15/18 1318 MR#: [id number] Acct: [id number] Name: MILAGROS STEVENSON Rep #: [id number] : 1935 82 From: Antonette Brown MD PCP: Poli Mendieta MD Status: ADM IN Location: [address] Problem List (1) COPD (chronic obstructive [...] Subcu heparin. This note was generated with Helleroy dictation software. It may contain incorrect words, spelling, and punctuation that were not noted in checking the note before signing. Code Visit Inpatient E AND M: 70002 Init Hosp L3 09/15/18 1343 <Electronically signed by Antonette Brown MD> Date Antonette Brown MD Cosigner Signature: Date (if applicable) CC: Antonette Brown; Poli Mendieta MD Signed CBC W/DIFF, AUTOMATED Collected: 09/15/2018 Status: F Source: [place] 12:05 PM [facility] REPOSITORY TYPE CODE TESTS RESULT OUT OF [...] Lymph 0.89 Performed By: #### L100.0100 #### [facility] [address] [facility], [address] PROTHROMBIN TIME W/INR Collected: 09/15/2018 Status: F Source: [place] 12:05 PM [facility] REPOSITORY TYPE CODE TESTS RESULT OUT OF RANGE REFERENCE UNITS LAB L300.4150 11.7-14.9 SECONDS Normal PROTIME 14.5 LAB L300.4200 Normal INR 1.1 Performed By: #### L300.3900 #### [facility] [address] [facility], [address] BASIC METABOLIC Collected: 09/15/2018 Status: F Source: [place] PROFILE (BMP) 12:05 PM [facility] REPOSITORY TYPE CODE TESTS RESULT OUT OF [...] 10 Performed By: #### L500.2500, L501.4010 #### [facility] [address] [facility] [place], [place], [address] TROPONIN-I Collected: 09/15/2018 Status: F Source: [place] 12:05 PM [facility] REPOSITORY TYPE CODE TESTS RESULT OUT OF RANGE REFERENCE UNITS LAB L501.4010 <0.045 ng/mL Normal 0.038 TROPONIN-I Result Comment: TROPONIN-I EXPECTED VALUES <0.045 Negative 0.045 - 0.590 Consistent with Cardiac Damage > OR = 0.600 Critical Value Not every elevated troponin is indicative of TN. These values should be used with clinical judgement in examining the patient's clinical picture for diagnosis. To establish a diagnosis of TN versus myocardial injury, there must be a demonstrated rise and/or fall in the troponin values, in addition to ischemic symptoms, EKG changes, new regional wall motion abnormality, and/or angiographical evidence. PLEASE NOTE: REFERENCE RANGES EDITED 18 Performed By: #### L500.2500, L501.4010 #### [facility] [address] [place], [place], [address] BNP,B-TYPE NATRIURETIC Collected: 09/15/2018 Status: F Source: [place] 12:05 PM [facility] REPOSITORY TYPE CODE TESTS RESULT OUT OF RANGE REFERENCE UNITS LAB L503.6620 0-100 pg/mL High B-TYPE 618.3 KAVIN PEP Performed By: #### L503.6620 #### [facility] [address] [place], [address] CHEST PA AND LATERAL Observed: 09/15/2018 Status: F Source: [place] 11:38 AM [facility] REPOSITORY [facility] Imaging Services [address] [place] [address] Chest PA and Lateral MR#: [id number] Acct: [id number] Name: MILAGROS STEVENSON Rep #: [id number] : 1935 F 82 From: Alexis Millan MD PCP: Poli Mendieta MD Status: REG ER Study: Chest PA and Lateral Date of Exam: 09/15/18 Exam# [id number] Ordering Dr: Dario Roy MD STUDY: X-RAY [...] CC: Dario Roy MD; Poli Mendieta MD Stencil Typist: Signed RFP Collected: 09/10/2018 Status: F Source: [employer] 11:58 AM [facility] REPOSITORY TYPE CODE TESTS [...] 3.2 Performed By: #### RFP, GFR #### [place] [address] .GFR Collected: 09/10/2018 Status: F Source: [facility] 11:58 AM [facility] REPOSITORY TYPE CODE TESTS RESULT OUT OF REFERENCE UNITS RANGE LAB GFRAA(LOINC ml/min/1.73 ) sqm GFR 43 Citizen [place] Result Comment: GFR Population mean for , [...] meters Performed By: #### RFP, GFR #### [place] [address] BMP Collected: 09/01/2018 Status: F Source: [employer] 10:58 AM [facility] REPOSITORY [...] 9.1 Performed By: #### BMP, GFR #### [address] [address] .GFR Collected: 09/01/2018 Status: F Source: [facility] 10:58 AM [facility] REPOSITORY TYPE CODE TESTS RESULT OUT OF REFERENCE UNITS RANGE LAB GFRAA(LOINC ml/min/1.73 ) sqm GFR 41 Citizen [place] Result Comment: GFR Population mean for , [...] meters Performed By: #### BMP, GFR #### [place] [address] 12 LEAD ELECTROCARDIOGRAM Observed: 08/20/2018 Status: F Source: [place] 11:05 AM [facility] REPOSITORY [facility] Cardiovascular Services [address] [place] [address] 12 Lead EKG 08/17/18 0713 MR#: [id number] Acct: [id number] Name: MILAGROS STEVENSON Rep #: [id number] : 1935 82 From: Alistair Vidal MD Attending Dr: Antonette Brown Status: DIS IN Ordering Dr: Violeta Dowling DO Date: 08/17/18 Location: [facility] Sex: F C Admitted: 08/16/18 [...] UNCONFIRMED Confirmed by CLIVE MD, ALISTAIR ([id number]), field map editor SUNSHINE STODDARD ([id number]) on 08/20/2018 11:05:25 AM Referred By: Confirmed By:ALISTAIR VIDAL MD 08/20/18 1105 Date Alistair Vidal MD CC: Sarah Dowling; Antonette Brown; Poli Mendieta MD Signed 12 LEAD ELECTROCARDIOGRAM Observed: 08/20/2018 Status: F Source: [place] 10:37 AM [facility] REPOSITORY [facility] Cardiovascular Services [address] [place], [place] [address] [place] [address] 12 Lead EKG 08/16/18 1453 MR#: [id number] Acct: [id number] Name: MILAGROS STEVENSON Rep #: [id number] : 1935 82 From: Alistair Vidal MD Attending Dr: Antonette Brown Status: DIS IN Ordering Dr: Claudia De León MD Date: 08/16/18 Location: [facility] Sex: F C Admitted: 08/16/18 [...] ECG Confirmed by ALISTAIR VIDAL MD ([id number]), field map editor SUNSHINE STODDARD ([id number]) on 08/20/2018 10:37:33 AM Referred By: LD Confirmed By:ALISTAIR VIDAL MD 08/20/18 1037 Date Alistair Vidal MD CC: Antonette Brown; Claudia De León MD; Poli Mendieta MD Signed DISCHARGE SUMMARY Observed: 08/19/2018 Status: F Source: [place] 12:08 PM [facility] Medical Records Department [address] [place] [address] Discharge Summary 08/19/18 1200 MR#: [id number] Acct: [id number] Name: MILAGROS STEVENSON Rep #: [id number] : 1935 82 From: Antonette Brown MD PCP: Poli Mendieta MD Status: DIS IN Y Location: [place] [address] Discharge Date and Diagnosis Date of Admission: [...] Terrell Solano MD at 10:01 EST Tel [phone], Service support , Dr. Bone, nephrology. Operations: [...] 2 weeks. Please Follow Up With: Poli Mnedieta MD Minutes spent on discharge:: 32 Patient Condition:: Stable Medical Necessity - Tobacco Use Smoking Status: Former smoker Tobacco Use: Cigarettes Meaningful Use Info Meaningful Use Diagnoses (Choose all that apply): CHF - CHF MOISES/ARB ordered at discharge?: No Reason MOISES/ARB not ordered?: Worsening renal function Documented LVEF (%): 60 Code Visit Inpatient E AND M: 07646 Disch Hosp 08/19/18 1208 <Electronically signed by Antonette Brown MD> Date Antonette Brown MD Cosigner Signature (if applicable): Date CC: Antonette Brown; Gamaliel Bone M.D.; Poli Mendieta MD Signed DISCHARGE INSTRUCTION Observed: 08/19/2018 Status: F Source: [place] 8:00 AM [facility] REPOSITORY [facility] Medical Records Department [address] [place] [address] Instructions for Home/Discharge Instructions 08/19/18 0759 MR#: [id number] Acct: [id number] Name: MILAGROS STEVENSON Rep #: [id number] : 1935 82 From: Antonette Brown MD [...] F Source: [place] PROFILE (BMP) 5:00 AM [facility] REPOSITORY TYPE CODE TESTS RESULT OUT OF [...] GAP 8 Performed By: #### L500.2500 #### [facility] [address] [place], [place], [address] BASIC METABOLIC Collected: 08/18/2018 Status: F Source: [place] PROFILE (BMP) 5:35 AM [facility] REPOSITORY TYPE CODE TESTS RESULT OUT OF [...] GAP 10 Performed By: #### L500.2500 #### [facility] [address] [place], [address] CHEST 1 VIEW Observed: 08/18/2018 Status: F Source: [place] (PORTABLE) 12:01 AM [facility] REPOSITORY [facility] Imaging Services [address] [place] [address] Chest 1 View (Portable) MR#: [id number] Acct: [id number] Name: MILAGROS STEVENSON Rep #: [id number] : 1935 F 82 From: Terrell Solano MD PCP: Poli Mendieta MD Status: ADM IN Study: Chest 1 View (Portable) Date of Exam: 08/18/18 Exam# [id number] Ordering Dr: Wendy Cummings STUDY: X-RAY CHEST [...] Terrell Solano MD at 10:01 EST Tel [phone], Service support , CC: ZAK Cummings; Poli Mendieta MD Stencil Typist: Signed URINALYSIS, COMPLETE Collected: 08/17/2018 Status: F Source: [place] 9:00 PM [facility] REPOSITORY Order Comment: How was Urine Obtained? [...] URINE SEEN Performed By: #### L400.0001 #### [facility] [address] [place] [address] [place], [address] CONSULTATION Observed: 08/17/2018 Status: F Source: [place] 4:54 PM [facility] REPOSITORY [facility] Medical Records Department [address] [place] [address] Consultation 12/07/25 1648 MR#: [id number] Acct: [id number] Name: MILAGROS STEVENSON Rep #: [id number] : 1935 82 From: Bhupendra Bone MD PCP: Poli Mendieta MD Status: ADM IN Y Location: [place] [address] Problem List (1) PEACE (acute kidney injury) [...] Amlodipine Besylate (Norvasc) 10 mg PO DAILY [facility] Aspirin (Aspirin) 325 mg PO DAILY@0800 [facility] Last Admin: 08/17/18 08:46 Dose: 325 mg Heparin Sodium (Porcine) (Heparin Na) 5,000 unit SC Q8 [facility] Last Admin: 08/17/18 14:20 Dose: 5,000 unit Hydralazine HCl (Apresoline) 25 mg PO TID [facility] Last Admin: 08/17/18 14:20 Dose: 25 mg [...] Date Recorded By Document 08/17/18 14:32 ANG [id number] 08/17/18 14:33 ANG Orthostatic Vitals Standing -Blood [...] ok now will arrange follow up in [place] [facility] after dc 08/17/18 7104 <Electronically signed by Bhupendra Bone MD> Date Bhupendra Bone MD Cosigner Signature (if applicable): Date CC: Ferdinand Aleman MD; Poli Mendieta MD Signed COMPREHENSIVE METABOLIC Collected: 08/17/2018 Status: F Source: [facility] 6:25 AM [facility] REPOSITORY TYPE CODE TESTS RESULT OUT OF [...] By: #### L500.4050, L500.4100, L501.2300, L501.5200 #### [facility] [address] [place], [address] LIPID PROFILE Collected: 08/17/2018 Status: F Source: [place] 6:25 AM [facility] REPOSITORY TYPE CODE TESTS RESULT OUT OF [...] By: #### L500.4050, L500.4100, L501.2300, L501.5200 #### [facility] [address] [place], [address] PHOSPHORUS Collected: 08/17/2018 Status: F Source: [place] 6:25 AM [facility] REPOSITORY TYPE CODE TESTS RESULT OUT OF RANGE REFERENCE UNITS LAB L501.2300 2.5-4.9 mg/dL Normal PHOS 3.1 Performed By: #### L500.4050, L500.4100, L501.2300, L501.5200 #### [facility] [address] [place], [address] MAGNESIUM Collected: 08/17/2018 Status: F Source: [place] 6:25 AM [facility] REPOSITORY TYPE CODE TESTS RESULT OUT OF RANGE REFERENCE UNITS LAB L501.5200 1.6-2.6 mg/dL Normal MG 1.8 Performed By: #### L500.4050, L500.4100, L501.2300, L501.5200 #### [facility] [address] [place], [address] TROPONIN-I Collected: 08/17/2018 Status: F Source: [place] 1:00 AM [facility] REPOSITORY Order Comment: 'TROP' Serial specimen #1, [...] Not every elevated troponin is indicative of TN. These values should be used with clinical judgement in examining the patient's clinical picture for diagnosis. To establish a diagnosis of TN versus myocardial injury, there must be a demonstrated rise and/or fall in the troponin values, in addition to ischemic symptoms, EKG changes, new regional wall motion abnormality, and/or angiographical evidence. PLEASE NOTE: REFERENCE RANGES EDITED 18 Performed By: #### L501.4010 #### [facility] [address] [place], [address] KIDNEY AND BLADDER Observed: 08/17/2018 Status: F Source: [place] 12:01 AM [facility] REPOSITORY [facility] Imaging Services [address] [place] [address] Kidney and Bladder MR#: [id number] Acct: [id number] Name: MILAGROS STEVENSON Rep #: [id number] : 1935 F 82 From: Zonia Foreman MD PCP: Poli Mendieta MD Status: ADM IN Study: Kidney and Bladder Date of Exam: 08/17/18 Exam# [id number] Ordering Dr: Violeta Dowling DO STUDY: RENAL [...] Status post right nephrectomy. Electronically Signed: Zonia Foerman MD at 15:37 EST Tel , Service support , CC: Sarah Dowling; Poli Mendieta MD Stencil Typist: Signed HISTORY AND PHYSICAL Observed: 08/16/2018 Status: F Source: [place] EXAM 6:48 PM [facility] REPOSITORY [facility] Medical Records Department [address] [address] [address] History and Physical 08/16/18 1826 MR#: [id number] Acct: [id number] Name: MILAGROS STEVENSON Rep #: [id number] : 1935 82 From: Violeta Dowling DO PCP: Poli Mendieta MD Status: ADM IN Location: [place] [address] Problem List (1) Acute diastolic (congestive) heart [...] who presented to the emergency department at [facility] on 08/16/2018 complaining of shortness of breath [...] . 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 Lives: Alone Smoking Status: Former [...] SCDs Code Visit Inpatient Yariel AND Violeta: 19144 Subs Hosp L3 08/16/18 3869 <Electronically signed by Violeta Dowling DO> Date Violeta Dowling DO Cosigner Signature: Date (if applicable) CC: Sarah Dowling; Poli Mendieta MD Signed PHOSPHORUS Collected: 08/16/2018 Status: F Source: [place] 6:46 PM [facility] REPOSITORY Order Comment: 'TROP' Serial specimen #1, #2 or #3: 2 TYPE CODE TESTS RESULT OUT OF RANGE REFERENCE UNITS LAB L501.2300 2.5-4.9 mg/dL Normal PHOS 2.8 Performed By: #### L501.2300, L501.4010, L501.5200, L501.9520 #### [facility] [address] [place], [place], [address] TROPONIN-I Collected: 08/16/2018 Status: F Source: [place] 6:46 PM [facility] REPOSITORY Order Comment: 'TROP' Serial specimen #1, #2 or #3: 2 TYPE CODE TESTS RESULT OUT OF RANGE REFERENCE UNITS LAB L501.4010 <0.045 ng/mL Normal 0.038 TROPONIN-I Result Comment: TROPONIN-I EXPECTED VALUES <0.045 Negative 0.045 - 0.590 Consistent with Cardiac Damage > OR = 0.600 Critical Value Not every elevated troponin is indicative of TN. These values should be used with clinical judgement in examining the patient's clinical picture for diagnosis. To establish a diagnosis of TN versus myocardial injury, there must be a demonstrated rise and/or fall in the troponin values, in addition to ischemic symptoms, EKG changes, new regional wall motion abnormality, and/or angiographical evidence. PLEASE NOTE: REFERENCE RANGES EDITED 18 Performed By: #### L501.2300, L501.4010, L501.5200, L501.9520 #### [facility] [address] [place], [place], [address] MAGNESIUM Collected: 08/16/2018 Status: F Source: [place] 6:46 PM [facility] REPOSITORY Order Comment: 'TROP' Serial specimen #1, #2 or #3: 2 TYPE CODE TESTS RESULT OUT OF RANGE REFERENCE UNITS LAB L501.5200 1.6-2.6 mg/dL Normal MG 1.8 Performed By: #### L501.2300, L501.4010, L501.5200, L501.9520 #### [facility] [address] [place], [address] THYROID STIM HORMONE Collected: 08/16/2018 Status: F Source: [place] (TSH) 6:46 PM [facility] REPOSITORY Order Comment: 'TROP' Serial specimen #1, #2 or #3: 2 TYPE CODE TESTS RESULT OUT OF RANGE REFERENCE UNITS LAB L501.9520 0.358-3.74 uIU/mL Normal TSH 3.05 Performed By: #### L501.2300, L501.4010, L501.5200, L501.9520 #### [facility] [address] [facility] [place], [address] EMERGENCY DEPARTMENT Observed: 08/16/2018 Status: F Source: [place] SUMMARY 5:24 PM [facility] REPOSITORY [facility] Medical Records Department [address] [place] [address] Emergency Department Summary 08/16/18 1444 MR#: [id number] Acct: [id number] Name: MILAGROS STEVENSON Rep #: [id number] : 1935 82 From: Claudia De León [...] solitary kidney. This note was generated with Helleroy dictation software. It may contain incorrect words, [...] your Primary Care Provider. Call [facility] ([phone]) or report to the closest Emergency Room. Call 911 if necessary. 08/16/18 1724 <Electronically signed by Claudia De León MD> Date Claudia De León MD Cosigner Signature (If Indicated): Date CC: Poli Mendieta MD CBC W/DIFF, AUTOMATED Collected: 08/16/2018 Status: F Source: [place] 3:00 PM [facility] REPOSITORY TYPE CODE TESTS RESULT OUT OF [...] Lymph 0.98 Performed By: #### L100.0100 #### [facility] [address] [place], [address] BASIC METABOLIC Collected: 08/16/2018 Status: F Source: [place] PROFILE (BMP) 3:00 PM [facility] REPOSITORY TYPE CODE TESTS RESULT OUT OF [...] 6 Performed By: #### L500.2500, L501.4010 #### [facility] [address] [facility], [address] TROPONIN-I Collected: 08/16/2018 Status: F Source: [place] 3:00 PM [facility] REPOSITORY TYPE CODE TESTS RESULT OUT OF RANGE REFERENCE UNITS LAB L501.4010 <0.045 ng/mL Normal 0.034 TROPONIN-I Result Comment: TROPONIN-I EXPECTED VALUES <0.045 Negative 0.045 - 0.590 Consistent with Cardiac Damage > OR = 0.600 Critical Value Not every elevated troponin is indicative of TN. These values should be used with clinical judgement in examining the patient's clinical picture for diagnosis. To establish a diagnosis of TN versus myocardial injury, there must be a demonstrated rise and/or fall in the troponin values, in addition to ischemic symptoms, EKG changes, new regional wall motion abnormality, and/or angiographical evidence. PLEASE NOTE: REFERENCE RANGES EDITED 18 Performed By: #### L500.2500, L501.4010 #### [facility] [address] [place], [address] BNP,B-TYPE NATRIURETIC Collected: 08/16/2018 Status: F Source: [place] PEPTIDE 3:00 PM [facility] REPOSITORY TYPE CODE TESTS RESULT OUT OF RANGE REFERENCE UNITS LAB L503.6620 0-100 pg/mL High B-TYPE 1349.2 KAVIN PEP Performed By: #### L503.6620 #### [facility] [address] [place], [address] PROTHROMBIN TIME W/INR Collected: 08/16/2018 Status: F Source: [place] 3:00 PM [facility] REPOSITORY TYPE CODE TESTS RESULT OUT OF RANGE REFERENCE UNITS LAB L300.4150 11.7-14.9 SECONDS High PROTIME 15.1 LAB L300.4200 Normal INR 1.2 Performed By: #### L300.3900, L300.4310 #### [facility] [address] [place], [address] PARTIAL THROMBOPLAST Collected: 08/16/2018 Status: F Source: [place] TIME 3:00 PM [facility] REPOSITORY TYPE CODE TESTS RESULT OUT OF RANGE REFERENCE UNITS LAB L300.4310 24.1-36.2 Seconds Normal PTT 29.0 Performed By: #### L300.3900, L300.4310 #### [facility] [address] [place], [address] CHEST PA AND LATERAL Observed: 08/16/2018 Status: F Source: [place] 2:44 PM [facility] REPOSITORY [facility] Imaging Services [address] [place] [address] Chest PA and Lateral MR#: [id number] Acct: [id number] Name: MILAGROS STEVENSON Rep #: [id number] : 1935 F 82 From: Zonia Foreman MD PCP: Poli Mendieta MD Status: REG ER Study: Chest PA and Lateral Date of Exam: 08/16/18 Exam# [id number] Ordering Dr: Claudia De León MD STUDY: [...] Claudia De León MD; Poli Mendieta MD Stencil Typist: Signed DISCHARGE SUMMARY Observed: 04/14/2018 Status: F Source: [place] 7:07 [facility] REPOSITORY [facility] Medical Records Department [address] [place] [address] Discharge Summary 04/14/18 1903 MR#: [id number] Acct: [id number] Name: MILAGROS STEVENSON Rep #: [id number] : 1935 82 From: Jeanmarie Veras DO PCP: Poli Mendieta MD Status: DIS MARION Y Location: [place] [address] Discharge Date and Diagnosis Date of Admission: [...] F seen in the emergency room at [facility] with chief complaint of chest discomfort she [...] applicable Code Visit OBSV E AND M: 00514 Observation care discharge 04/14/18 9250 <Electronically signed by Jeanmarie Veras DO> Date Jeanmarie Veras DO Cosigner Signature (if applicable): Date CC: Poli Mendieta MD; Jeanmarie Veras DO Signed 12 LEAD ELECTROCARDIOGRAM Observed: 04/14/2018 Status: F Source: [place] 11:30 AM [facility] REPOSITORY [facility] Cardiovascular Services [address] [place] [address] 12 Lead EKG 04/12/1847 MR#: [id number] Acct: [id number] Name: MILAGROS STEVENSON Rep #: [id number] : 1935 82 From: Cornelius Mirza MD [...] leads) Confirmed by BETTY SHELDON, CORNELIUS ([id number]), field map editor SUNSHINE STODDARD ([id number]) on 04/14/2018 11:29:45 AM Referred By: DR KAUR Confirmed By:CORNELIUS MIRZA MD 04/14/18 112 Date Cornelius Mirza MD CC: Poli Mendieta MD; Constance Kaur; Jeanmarie Veras DO Signed 12 LEAD ELECTROCARDIOGRAM Observed: 04/14/2018 Status: F Source: [place] 10:53 AM [facility] REPOSITORY [facility] Cardiovascular Services [address] [place] [address] 12 Lead EKG 04/11/182001 MR#: [id number] Acct: [id number] Name: MILAGROS STEVENSON Rep #: [id number] : 1935 82 From: Cornelius Mirza MD [...] normal ECG Confirmed by BETTY SHELDON, CORNELIUS ([id number]), field map editor SUNSHINE STODDARD (56) on 04/14/2018 10:53:26 AM Referred By: FAWAD Confirmed By:CORNELIUS MIRZA MD 04/14/18 1053 Date Cornelius Mirza MD CC: Poli Mendieta MD; Jeanmarie Veras DO; Joe Severino DO Signed DISCHARGE INSTRUCTION Observed: 04/12/2018 Status: F Source: [place] 11:48 AM [facility] REPOSITORY [facility] Medical Records Department [address] [place] [address] Instructions for Home/Discharge Instructions 04/12/18 1147 MR#: [id number] Acct: [id number] Name: MILAGROS STEVENSON Rep #: [id number] : 1935 82 From: Jeanmarie Veras DO [...] 04/12/2018 Status: F Source: [place] 9:50 AM [facility] REPOSITORY [facility] Cardiovascular Services [address] [place] [address] MR#: [id number] Acct: [id number] Name: MILAGROS STEVENSON Rep #: [id number] : 1935 82 From: Cornelius Mirza MD [...] 57 %. This note was generated with Relationship Analyticsation software. It may contain incorrect words, spelling, and punctuation that were not noted in checking the note before signing. 04/12/1850 <Electronically signed by Cornelius Mirza MD> Date Cornelius Mirza MD CC: Poil Mendieta MD; Jeanmarie Veras DO Date Dictated: 04/12/18941 Date Transcribed: 04/12/18941 Stencil Typist: PM Signed TROPONIN-I Collected: 04/12/2018 Status: F Source: [place] 3:55 AM [facility] REPOSITORY Order Comment: 'TROP' Serial specimen #1, #2 or #3: 3 TYPE CODE TESTS RESULT OUT OF RANGE REFERENCE UNITS LAB L501.4010 <0.045 ng/mL Normal < 0.015 TROPONIN-I Result Comment: TROPONIN-I EXPECTED VALUES <0.045 Negative 0.045 - 0.590 Consistent with Cardiac Damage > OR = 0.600 Critical Value Not every elevated troponin is indicative of TN. These values should be used with clinical judgement in examining the patient's clinical picture for diagnosis. To establish a diagnosis of TN versus myocardial injury, there must be a demonstrated rise and/or fall in the troponin values, in addition to ischemic symptoms, EKG changes, new regional wall motion abnormality, and/or angiographical evidence. PLEASE NOTE: REFERENCE RANGES EDITED 18 Performed By: #### L501.4010 #### [facility] [address] [facility] [place], [place], [address] PROTHROMBIN TIME W/INR Collected: 04/12/2018 Status: F Source: [place] 3:55 AM [facility] REPOSITORY TYPE CODE TESTS RESULT OUT OF RANGE REFERENCE UNITS LAB L300.4150 11.7-14.9 SECONDS Normal PROTIME 14.3 LAB L300.4200 Normal INR 1.1 Performed By: #### L300.3900, L300.4310 #### [facility] [address] [facility], [address] PARTIAL THROMBOPLAST Collected: 04/12/2018 Status: F Source: [place] TIME 3:55 AM [facility] REPOSITORY TYPE CODE TESTS RESULT OUT OF RANGE REFERENCE UNITS LAB L300.4310 24.1-36.2 Seconds Normal PTT 28.4 Performed By: #### L300.3900, L300.4310 #### [facility] [address] [place], [place], [address] CBC-COMPLETE BLOOD CNT Collected: 04/12/2018 Status: F Source: [place] NO DIFF 3:55 AM [facility] REPOSITORY TYPE CODE TESTS RESULT OUT OF [...] MPV 10.2 Performed By: #### L100.0500 #### [facility] [address] [place], [place], [address] BASIC METABOLIC Collected: 04/12/2018 Status: F Source: [place] PROFILE (BMP) 3:55 AM [facility] REPOSITORY TYPE CODE TESTS RESULT OUT OF [...] 12 Performed By: #### L500.2500, L500.4100 #### [facility] [address] [facility] [place], [place], [address] LIPID PROFILE Collected: 04/12/2018 Status: F Source: [place] 3:55 AM [facility] REPOSITORY TYPE CODE TESTS RESULT OUT OF [...] 10 Performed By: #### L500.2500, L500.4100 #### [facility] [address] [facility] [place], [place], [address] MAGNESIUM Collected: 04/12/2018 Status: F Source: [place] 12:42 AM [facility] REPOSITORY TYPE CODE TESTS RESULT OUT OF RANGE REFERENCE UNITS LAB L501.5200 1.6-2.6 mg/dL Normal MG 1.8 Performed By: #### L501.5200 #### [facility] [address] [place], [address] TROPONIN-I Collected: 04/12/2018 Status: F Source: [place] 12:42 AM [facility] REPOSITORY Order Comment: 'TROP' Serial specimen #1, #2 or #3: 2 TYPE CODE TESTS RESULT OUT OF RANGE REFERENCE UNITS LAB L501.4010 <0.045 ng/mL Normal < 0.015 TROPONIN-I Result Comment: TROPONIN-I EXPECTED VALUES <0.045 Negative 0.045 - 0.590 Consistent with Cardiac Damage > OR = 0.600 Critical Value Not every elevated troponin is indicative of TN. These values should be used with clinical judgement in examining the patient's clinical picture for diagnosis. To establish a diagnosis of TN versus myocardial injury, there must be a demonstrated rise and/or fall in the troponin values, in addition to ischemic symptoms, EKG changes, new regional wall motion abnormality, and/or angiographical evidence. PLEASE NOTE: REFERENCE RANGES EDITED 18 Performed By: #### L501.4010 #### [facility] [address] [place], [address] HISTORY AND PHYSICAL Observed: 04/12/2018 Status: F Source: [place] EXAM 12:41 AM [facility] REPOSITORY [facility] Medical Records Department [address] [place] [address] History and Physical 04/11/18 2329 MR#: [id number] Acct: [id number] Name: MILAGROS STEVENSON Rep #: [id number] : 1935 82 From: Constance Kaur PCP: Poil Mendieta MD Status: ADM MARION Y Location: [place] [address] Problem List (1) Chest pain Status: Acute [...] (baseline Cr 1.4) who presents to the [facility] ED on 04/11/18 with history of [...] . 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 Follows w/ [facility] at [facility]. (5) Morbid Obesity: Weight loss and lifestyle [...] minutes. Code Visit OBSV E AND M: 61102 Initial observation care L3 Procedures: 70821 Advncd Care Plan 30 Min 04/12/18 0041 <Electronically signed by Constance Kaur > Date Constance Kaur Cosigner Signature: Date (if applicable) CC: Poli Mendieta MD; Constance Kaur Signed EMERGENCY DEPARTMENT Observed: 04/11/2018 Status: F Source: [place] SUMMARY 11:18 PM [facility] REPOSITORY [facility] Medical Records Department [address] [place] [address] Emergency Department Summary 04/11/18 2313 MR#: [id number] Acct: [id number] Name: MILAGROS STEVENSON Rep #: [id number] : 1935 82 From: Joe Severino DO [...] coronary syndrome] This note was generated with Helleroy dictation software. It may contain incorrect words, [...] your Primary Care Provider. Call [facility] ([phone]) or report to the closest Emergency Room. Call 911 if necessary. 04/11/18 2318 <Electronically signed by Joe Severino DO> Date Joe Severino DO Cosigner Signature (If Indicated): Date CC: Poli Mendieta MD CTA CHEST W/WO Observed: 04/11/2018 Status: F Source: [place] CONTRAST 9:40 PM [facility] REPOSITORY [facility] Imaging Services [address] [place] [address] CTA Chest W/WO Contrast MR#: [id number] Acct: [id number] Name: MILAGROS STEVENSON Rep #: [id number] : 1935 F 82 From: Tracey Villatoro MD PCP: Poli Mendieta MD Status: REG ER Study: CTA Chest W/WO Contrast Date of Exam: 04/11/18 Exam# [id number] Ordering Dr: Joe Severino DO STUDY: CTA [...] CC: Poli Mendieta MD; Joe Severino DO Stencil Typist: Signed CBC W/DIFF, AUTOMATED Collected: 04/11/2018 Status: F Source: [place] 9:00 PM [facility] REPOSITORY TYPE CODE TESTS RESULT OUT OF [...] Lymph 1.26 Performed By: #### L100.0100 #### [facility] [address] [facility] [place], [place], [address] D-DIMER QUANTITATIVE Collected: 04/11/2018 Status: F Source: [place] (DVT/PE) 9:00 PM [facility] REPOSITORY TYPE CODE TESTS RESULT OUT OF RANGE REFERENCE UNITS LAB L300.8000 0.27-0.49 FEU/ug/m High alert D-DIMER 0.85 QUANT Result Comment: D-Dimer ELEVATED (>0.49): Additional studies and clinical assessments are indicated to conclude diagnosis of: Deep Vein Thrombosis (DVT) or Pulmonary Embolism (PE) CRITICAL VALUE VERIFIED. CALLED TO AMAURY 04/11/18 Corrina Ortiz. RESULTS READ BACK BY SAME . Performed By: #### L300.8000 #### [facility] [address] [place], [place], [address] LIPASE Collected: 04/11/2018 Status: F Source: [place] 9:00 PM [facility] REPOSITORY TYPE CODE TESTS RESULT OUT OF RANGE REFERENCE UNITS LAB L501.2450 73-393 U/L Normal LIPASE 154 Performed By: #### L501.2450 #### [facility] [address] [place], [place], [address] BASIC METABOLIC Collected: 04/11/2018 Status: F Source: [place] PROFILE (BMP) 9:00 PM [facility] REPOSITORY Order Comment: 'TROP' Serial specimen #1, [...] 11 Performed By: #### L500.2500, L501.4010 #### [facility] [address] [place], [place], [address] TROPONIN-I Collected: 04/11/2018 Status: F Source: [place] 9:00 PM [facility] REPOSITORY Order Comment: 'TROP' Serial specimen #1, #2, #3, or #4: 1 TYPE CODE TESTS RESULT OUT OF RANGE REFERENCE UNITS LAB L501.4010 <0.045 ng/mL Normal 0.017 TROPONIN-I Result Comment: TROPONIN-I EXPECTED VALUES <0.045 Negative 0.045 - 0.590 Consistent with Cardiac Damage > OR = 0.600 Critical Value Not every elevated troponin is indicative of TN. These values should be used with clinical judgement in examining the patient's clinical picture for diagnosis. To establish a diagnosis of TN versus myocardial injury, there must be a demonstrated rise and/or fall in the troponin values, in addition to ischemic symptoms, EKG changes, new regional wall motion abnormality, and/or angiographical evidence. PLEASE NOTE: REFERENCE RANGES EDITED 18 Performed By: #### L500.2500, L501.4010 #### [facility] [address] [facility], [address] CHEST 1 VIEW Observed: 04/11/2018 Status: F Source: [place] (PORTABLE) 8:20 PM [facility] REPOSITORY [facility] Imaging Services [address] [place] [address] Chest 1 View (Portable) MR#: [id number] Acct: [id number] Name: MILAGROS STEVENSON Rep #: [id number] : 1935 F 82 From: Mendoza Walters MD PCP: Poli Mendieta MD Status: REG ER Study: Chest 1 View (Portable) Date of Exam: 04/11/18 Exam# [id number] Ordering Dr: Joe Severino DO STUDY: X-RAY CHEST REASON FOR EXAM: Female, 82 years old. Chest pain TECHNIQUE: Single AP portable view of the chest. COMPARISON: Prior study of 12/05/2017 FINDINGS: awake overnight monitor leads are present. Prominent bronchopulmonary markings are [...] CC: Poli Mendieta MD; Joe Severino DO Stencil Typist: Signed PULMONARY VISIT REPORT Observed: 04/06/2018 Status: F Source: [place] 11:55 AM [facility] Pulmonary Medicine of [address] [place] [address] OFFICE VISIT Date of Service: 04/06/18 MR#: [id number] Acct: [id number] Name: MILAGROS STEVENSON Rep #: [id number] : 1935 Provider: Meseret Sommers Age/Sex: 82/F Location: [facility].PMW Status: Signed Assessment AND Plan 1. Shortness [...] An[place] daily. 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: [employer] Accompanied by: Self Is patient in pain?: [...] 12/06/17 [Rx Confirmed 04/06/18] Hydrocodone Bitart/Apap 5-325 [Camden 5MG-325MG] 1 tab PO Q4H PRN PRN [...] 04/06/18 1155 <Electronically signed by Meseret Sommers ORACLE DATABASE ANALYSTMoreC> Date Meseret Sommers NP-C Farzadigner Signature: Date (if applicable) CC: Poli Mendieta MD EMERGENCY DEPARTMENT Observed: 03/11/2018 Status: F Source: [place] SUMMARY 5:12 PM [facility] REPOSITORY [facility] Medical Records Department [address] [place] [address] Emergency Department Summary 03/11/18 1356 MR#: [id number] Acct: [id number] Name: MILAGROS STEVENSON Rep #: [id number] : 1935 82 From: Zachariah Solis MD [...] Terrell Solano MD at 14:58 EDT Tel [phone], Service support , 03/11/18 13:55 Abdomen/Pelvis without [...] she was still hurting and wanted some Camden because that helped in the past but [...] Strain Abdominal Muscle Prescriptions: Hydrocodone Bitart/Apap 5-325 [Camden 5MG-325MG] 1 tablet PO Q4H PRN PRN 2 Days #10 tablet PRN Reason: Pain Referrals: Poli Mendieta MD [Primary Care Provider] - 3-5 Days if not improving What to do if you have Problems For any increased pain, shortness of breath, bleeding, nausea or vomiting, chest pain, or any unexpected problems, contact your Primary Care Provider. Call [facility] ([phone]) or report to the closest Emergency Room. Call 911 if necessary. 03/11/18 7285 <Electronically signed by Zachariah Solis MD> Date Zachariah Solis MD Cosigner Signature (If Indicated): Date CC: Poli Mendieta MD ABDOMEN/PELVIS WITHOUT Observed: 03/11/2018 Status: F Source: [place] CONT 1:56 PM [facility] REPOSITORY [facility] Imaging Services [address] [place] [address] Abdomen/Pelvis without Cont MR#: [id number] Acct: [id number] Name: MILAGROS STEVENSON Rep #: [id number] : 1935 F 82 From: Terrell Solano MD PCP: Poli Mendieta MD Status: REG ER Study: Abdomen/Pelvis without Cont Date of Exam: 03/11/18 Exam# [id number] Ordering Dr: Zachariah Solis MD STUDY: CT [...] Terrell Solano MD at 14:58 EDT Tel [phone], Service support , CC: Poli Mendieta MD; ZACHARIAH SOLIS MD Stencil Typist: Signed URINALYSIS, COMPLETE Collected: 03/11/2018 Status: F Source: [place] 1:45 PM [facility] REPOSITORY Order Comment: How was Urine Obtained? SALICYLIC ACID BLENDER TO SPECIFY TYPE CODE TESTS RESULT OUT [...] 0-5 SEEN Performed By: #### L400.0001 #### [facility] [address] [place], [place], [address] CBC W/DIFF, AUTOMATED Collected: 03/11/2018 Status: F Source: [place] 11:25 AM [facility] REPOSITORY TYPE CODE TESTS RESULT OUT OF [...] Lymph 1.42 Performed By: #### L100.0100 #### [facility] [address] [place], [address] BASIC METABOLIC Collected: 03/11/2018 Status: F Source: [place] PROFILE (BMP) 11:25 AM [facility] REPOSITORY TYPE CODE TESTS RESULT OUT OF [...] 6 GAP Performed By: #### L500.2500 #### [facility] [address] [place], [address] PULMONARY VISIT REPORT Observed: 03/02/2018 Status: F Source: [place] 2:43 PM [facility] REPOSITORY [facility] [place] [address] [place] [address] OFFICE VISIT Date of Service: 03/02/18 MR#: [id number] Acct: [id number] Name: MILAGROS STEVENSON Rep #: [id number] : 1935 Provider: Abdiel Mosley D.O. Age/Sex: 82/F Location: [facility].PMW Status: Signed Assessment AND Plan 1. Chronic hypoxemic respiratory failure J96.11 Plan The patient's recent 6 minute walk test did reveal the need for 4 L/min supplemental oxygen with exertion. However, the patient is currently only utilizing 2 L/min. New orders for supplemental oxygen will be faxed to [facility]. Patient was advised to increase her supplemental [...] stephanie: Order Changed Follow Up 1 Month ([facility]) HPI HPI Comments Details: The patient is [...] 09/11/16 [Rx Confirmed 03/02/18] Hydrocodone Bitart/Apap 5-325 [Camden 5/325] 1 - 2 tab PO Q4H PRN PRN #20 tab 12/23/16 [Rx Confirmed 03/02/18] Felodipine [Plendil] 10 mg PO DAILY 12/02/17 [History Confirmed 03/02/18] Oxygen, Home [Home Oxygen] 2 lpm NASAL CONT #1 unit 12/06/17 [Rx Confirmed 03/02/18] Prednisone [Deltasone] 40 mg PO DAILY #10 tab 12/06/17 [Rx Confirmed 03/02/18] [facility] Medical History Acute respiratory failure with hypoxia [...] 01/27/2018 Status: F Source: [place] 11:32 AM [facility] REPOSITORY [facility] Pulmonary Services/Neurology [address] [place] [address] MR#: [id number] Acct: [id number] Name: MILAGROS STEVENSON Rep #: [id number] : 1935 82 From: Abdiel Mosley DO Referring Dr: Meseret Sommers ORACLE DATABASE ANALYST Date: Ordering Dr: Sex: F C Location: PSN PSN 6 Minute Walk Test - 6 Minute Walk Test 6 Minute Walk Test: 6 Minute Walk Test PSN:6-Minute Walk Test Start: 01/26/18 13:09 Freq: Status: Active Protocol: RESP.6MINW Document 01/26/18 12:45 MEK (Rec: 01/26/18 13:14 [facility] [id number]) 6 Minute Walk Test Date Performed 01/26/18 [...] Dictated: 01/27/18 1129 Date Transcribed: 01/27/18 112 Stencil Typist: Abdiel Mosley DO Signed PULMONARY FUNCTION Observed: 01/20/2018 Status: F Source: [place] REPORT COMP 5:47 AM [facility] REPOSITORY [facility] Pulmonary Services/Neurology [address] [place] [address] MR#: [id number] Acct: [id number] Name: MILAGROS STEVENSON Rep #: [id number] : 1935 82 From: Yayo Wilson MD Referring Dr: Meseret Sommers ORACLE DATABASE ANALYST Status: REG CLI Ordering Dr: Date: Location: [facility] Sex: F C COMPLETE PULMONARY FUNCTION TEST INTERPRETATION Brief HPI: Patient is an 82 year old female, currently under the care of Meseret Sommers, who presents to [facility] for complete pulmonary function tests secondary to [...] Sommers Date Dictated: 01/20/1844 Date Transcribed: 01/20/18543 Stencil Typist: MAURICIO Signed PULMONARY VISIT REPORT Observed: 12/25/2017 Status: F Source: [place] 1:27 PM [facility] REPOSITORY Pulmonary Medicine of [address] [place] [address] OFFICE VISIT Date of Service: 12/25/17 MR#: [id number] Acct: [id number] Name: MILAGROS STEVENSON Rep #: [id number] : 1935 Provider: Meseret Sommers Age/Sex: 82/F Location: [facility].W Status: Signed Assessment AND Plan 1. Daytime [...] Orders Orders: Follow Up 2 Months (DMB) [facility] Hospital FU: Chief Complaint: Shortness of breath HPI Comments Details: This is a 82 year old F, currently under the care of Poli Mendieta, here to follow up after a recent hospitalization at [facility], from December 02 - December 06, 2017 [...] 09/11/16 [Rx Confirmed 12/02/17] Hydrocodone Bitart/Apap 5-325 [Camden 5/325] 1 - 2 tab PO Q4H PRN PRN #20 tab 12/23/16 [Rx Confirmed 12/02/17] Budesonide/Formoterol 160/4.5 [Symbicort 160/4.5 Mcg Inhaler (SP)] 2 puff INHALATION BID 12/02/17 [History Confirmed 12/02/17] Felodipine [Plendil] 10 mg PO DAILY 12/02/17 [History Confirmed 12/02/17] Oxygen, Home [Home Oxygen] 2 lpm NASAL CONT #1 unit 12/06/17 [Rx] Prednisone [Deltasone] 40 mg PO DAILY #10 tab 12/06/17 [Rx] [facility] Medical History Acute respiratory failure with hypoxia [...] 12/06/2017 Status: F Source: [place] 1:38 PM [facility] REPOSITORY [facility] Medical Records Department [address] [place] [address] Discharge Summary 12/06/17 1330 MR#: [id number] Acct: [id number] Name: MILAGROS STEVENSON Rep #: [id number] : 1935 82 From: Antonette Brown MD PCP: POLI MENDIETA Status: DIS IN Y Location: [place] [address] Discharge Date and Diagnosis Date of Admission: [...] EDT Tel , Service support , Dr. oMsley, pulmonology. Operations: None Procedures: 2-D Echocardiogram, EKG [...] PRN #1 inhaler 09/11/16 Hydrocodone Bitart/Apap 5-325 [Camden 5/325] 1 - 2 tablet PO Q4H [...] the discharge summary. Inpatient E AND M: 81854 Disch Hosp 12/06/17 1338 <Electronically signed by Antonette Brown MD> Date Antonette Brown MD Cosigner Signature (if applicable): Date CC: Abdiel Mosley D.O.; Antonette Brown; POLI MENDIETA Signed DISCHARGE INSTRUCTION Observed: 12/06/2017 Status: F Source: [place] 11:41 AM [facility] REPOSITORY [facility] Medical Records Department [address] [place] [address] Instructions for Home/Discharge Instructions 12/06/17 1140 MR#: [id number] Acct: [id number] Name: MILAGROS STEVENSON Rep #: [id number] : 1935 82 From: Antonette Brown MD [...] PRN #1 inhaler 09/11/16 Hydrocodone Bitart/Apap 5-325 [Camden 5/325] 1 - 2 tablet PO Q4H [...] F Source: [place] PROFILE (BMP) 8:00 AM [facility] REPOSITORY TYPE CODE TESTS RESULT OUT OF [...] GAP 9 Performed By: #### L500.2500 #### [facility] [address] [facility], [address] CHEST 1 VIEW Observed: 12/05/2017 Status: F Source: [place] (PORTABLE) 7:29 AM [facility] REPOSITORY [facility] Imaging Services [address] [place] [address] Chest 1 View (Portable) MR#: [id number] Acct: [id number] Name: MILAGROS STEVENSON Jaycee Rep #: [id number] : 1935 F 82 From: Mazin Jiménez MD PCP: POLI MENDIETA Status: ADM IN Study: Chest 1 View (Portable) Date of Exam: 12/05/17 Exam# [id number] Ordering Dr: Abdiel Mosley DO STUDY: X-RAY [...] , CC: Abdiel Mosley D.O.; POLI MENDIETA Stencil Typist: Signed Observed: 12/05/2017 Status: F Source: [place] CULTURE, SPUTUM 6:00 AM [facility] REPOSITORY Gram Stain Acceptable Specimen? Yes (<25 Epithelial cells per/lpf) Gram Stain No White Blood Cells No Epithelial cells No organisms seen Resp. Culture No Haemophilus, Streptococcus pneumoniae, beta-hemolytic Streptococcus or Staphylococcus aureus isolated. ORGANISM 1: Presumptive C albicans Amount Growth 1+ Performed By: #### M100.0800 #### [facility] [address] [facility], [address] RHEUMATOID FACTOR Collected: 12/04/2017 Status: F Source: [place] 7:28 AM [facility] REPOSITORY TYPE CODE TESTS RESULT OUT OF REFERENCE UNITS RANGE LAB L505.7010 <15 IU/mL High RHEUMATOID FAC 56.0 Performed By: #### L505.7010 #### [facility] [address] [facility], [address] HARMEET W/ REFLEX MULT Collected: 12/04/2017 Status: F Source: [place] CONFIRM 7:28 AM [facility] REPOSITORY TYPE CODE TESTS RESULT OUT OF RANGE REFERENCE UNITS LAB L3100.5475 Negative Normal Negative HARMEET-DIRECT Performed By: #### L3100.5450, L3900.2100 #### [facility] (refer to report for specific site) refer to report for address and phone number ALPHA ANTITRYPSIN SERUM Collected: 12/04/2017 Status: F Source: [place] 7:28 AM [facility] REPOSITORY TYPE CODE TESTS RESULT OUT OF RANGE REFERENCE UNITS LAB L3900.2100 90-200 mg/dL Normal A- 131 [id number] Result Comment: Performed at: [facility] - [facility] [id number] Senior Product Integrity Engineer: Arnol Rebollar PhD, Phone: [phone] Performed By: #### L3100.5450, L3900.2100 #### [facility] (refer to report for specific site) refer to report for address and phone number ANCA Collected: 12/04/2017 Status: F Source: [place] 7:28 AM [facility] REPOSITORY TYPE CODE TESTS RESULT OUT OF [...] up testing of positive sera with both AK- 3 and MPO-ANCA enzyme immunoassays. As many [...] 12/04/2017 Status: F Source: [place] 7:28 AM [facility] REPOSITORY TYPE CODE TESTS RESULT OUT OF RANGE REFERENCE UNITS LAB L4600.0100 0-19 units Normal ANTI-CCP 8 [id number] Result Comment: Negative <20 Weak positive 20 - 39 Moderate positive 40 - 59 Strong positive >59 Performed at: [facility] [id number] Senior Product Integrity Engineer: Arnol Rebollar PhD, Phone: [phone] Performed at: [facility] [employer] [id number] Senior Product Integrity Engineer: Yair Gillette MD, Phone: [phone] Performed By: #### L3300.1200, L4600.0100 #### [facility] (refer to report for specific site) refer to report for address and phone number ECHOCARDIOGRAM COMPLETE Observed: 12/03/2017 Status: F Source: [place] 5:31 PM [facility] REPOSITORY [facility] Cardiovascular Services [address] [place] [address] Echo Complete 12/03/17 0938 MR#: [id number] Acct: [id number] Name: MILAGROS STEVENSON Rep #: [id number] : 1935 82 From: Alistair Vidal MD Attending Dr: Savita Lobo M.D. Status: ADM IN Ordering Dr: Constance Kaur Date: 12/02/17 Location: [facility] Sex: F C Admitted: 12/02/17 Reason For [...] By: Delilah De Santiago, RASHAAD, RVT 12/03/17 9548 Date Alistair Vidal MD CC: Constance Kaur; POLI MENDIETA; Savita Lobo M.D. Date Dictated: 12/03/17 0938 Date Transcribed: 12/03/17 1730 Stencil Typist: Signed 12 LEAD ELECTROCARDIOGRAM Observed: 12/03/2017 Status: F Source: ROMEL 2:34 PM [facility] REPOSITORY [facility] Cardiovascular Services [address] [place] [address] 12 Lead EKG 12/02/17 1450 MR#: [id number] Acct: [id number] Name: MILAGROS STEVENSON Rep #: [id number] : 1935 82 From: Alistair Vidal MD Attending Dr: Savita Lobo M.D. Status: ADM IN Ordering Dr: Dm Feliciano MD Date: 12/02/17 Location: [facility] Sex: F C Admitted: 12/02/17 Test Reason [...] ECG Confirmed by CLIVE SHELDON, ALISTAIR ([id number]), field map editor SUNSHINE STODDARD ([id number]) on 12/03/2017 2:33:54 PM Referred By: JODI Confirmed By:ALISTAIR VIDAL MD 12/03/17 1433 Date Alistair Vidal MD CC: Dm Feliciano MD; POLI MENDIETA; Savita Lobo M.D. Signed CONSULTATION Observed: 12/03/2017 Status: F Source: [place] 1:50 PM [facility] REPOSITORY [facility] Medical Records Department [address] [place] [address] Consultation 12/03/17 0811 MR#: [id number] Acct: [id number] Name: MILAGROS STEVENSON Rep #: [id number] : 1935 82 From: Francia WESTC PCP: POLI MENDIETA Status: ADM IN Y Location: [facility] [id number] ADDENDUM by Abdiel Mosley D.O. on 12/03/17 [...] patient as tolerated. Inpatient E AND M: 11221 Init Hosp L3 12/03/17 1350 <Electronically signed [...] 15 years and quit in 1994 (7.5 [id number]). 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 Patient states she had no other [...] or concerns. This note was generated with Helleroy dictation software. It may contain incorrect words, spelling, and punctuation that were not noted in checking the note before signing. 12/03/17 1229 <Electronically signed by Francia CRESPO> Date Francia CRESPO Cosigner Signature (if applicable): Date CC: Abdiel Mosley D.O.; POLI MENDIETA Signed CHEST WITHOUT Observed: 12/03/2017 Status: F Source: [place] CONTRAST 11:52 AM [facility] REPOSITORY [facility] Imaging Services [address] [place] [address] Chest without Contrast MR#: [id number] Acct: [id number] Name: MILAGROS STEVENSON Rep #: [id number] : 1935 F 82 From: Adonay Martinez MD PCP: POLI MENDIETA Status: ADM IN Study: Chest without Contrast Date of Exam: 12/03/17 Exam# [id number] Ordering Dr: Francia Braga STUDY: CT CHEST [...] , CC: Francia Braga NP; POLI MENDIETA Stencil Typist: Signed CBC W/DIFF, AUTOMATED Collected: 12/03/2017 Status: F Source: ROMEL 5:35 AM [facility] REPOSITORY TYPE CODE TESTS RESULT OUT OF [...] Lymph 0.54 Performed By: #### L100.0100 #### [facility] [address] [place] [address]. [place], [place], [address] BASIC METABOLIC Collected: 12/03/2017 Status: F Source: [place] PROFILE (BMP) 5:35 AM [facility] REPOSITORY TYPE CODE TESTS RESULT OUT OF [...] GAP 8 Performed By: #### L500.2500 #### [facility] [address] [place] [address]. [facility] [address] Observed: 12/02/2017 Status: F Source: [place] RESPIRATORY PANEL 8:10 PM [facility] MOLECULAR REPOSITORY RP PANEL ADENOVIRUS Not Detected [...] acid amplification Performed By: #### M100.638 #### [facility] [address] [place] [address] EMERGENCY DEPARTMENT Observed: 12/02/2017 Status: F Source: [place] SUMMARY 5:07 PM [facility] REPOSITORY [facility] Medical Records Department [address] [place] [address] Emergency Department Summary 12/02/17 1616 MR#: [id number] Acct: [id number] Name: MILAGROS STEVENSON Rep #: [id number] : 1935 82 From: Dm Feliciano MD [...] 2. Hypoxia This note was generated with Helleroy dictation software. It may contain incorrect words, [...] your Primary Care Provider. Call [facility] ([phone]) or report to the closest Emergency Room. Call 911 if necessary. 12/02/17 9356 <Electronically signed by Dm Feliciano MD> Date Dm Knutson Signature (If Indicated): Date CC: POLI MENDIETA HISTORY AND PHYSICAL Observed: 12/02/2017 Status: F Source: [place] EXAM 4:52 PM [facility] REPOSITORY [facility] Medical Records Department [address] [place] [address] History and Physical 12/02/17 1630 MR#: [id number] Acct: [id number] Name: MILAGROS STEVENSON Rep #: [id number] : 1935 82 From: Constance Kaur PCP: [...] (baseline Cr 1.4) who presents to the [facility] ED on 12/02/17 with history of [...] replacement. 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 Follows w/ Pbx Installer at [facility]. (4) Obesity: Weight loss and lifestyle changes encouraged, nutrition consulted for education. (5) Hx TIA/CVD: Maintain on asa, BP regimen with goal <140/90, not on statin. (6) GERD: Famotidine. (7) DVT Prophylaxis: SCDs, heparin. Code Visit Inpatient E AND M: 16810 Init Hosp L3 12/02/17 1652 <Electronically signed by Constance Kaur > Date Constance Kaur Cosigner Signature: Date (if applicable) CC: Constance Kaur; POLI MENDIETA Signed CBC W/DIFF, AUTOMATED Collected: 12/02/2017 Status: F Source: ROMEL 2:36 PM [facility] REPOSITORY TYPE CODE TESTS RESULT OUT OF [...] Lymph 2.03 Performed By: #### L100.0100 #### [facility] [address] [place], [place], [address] BASIC METABOLIC Collected: 12/02/2017 Status: F Source: [place] PROFILE (BMP) 2:36 PM [facility] REPOSITORY Order Comment: 'TROP' Serial specimen #1, [...] 10 Performed By: #### L500.2500, L501.4010 #### [facility] [address] [place], [address] TROPONIN-I Collected: 12/02/2017 Status: F Source: [place] 2:36 PM [facility] REPOSITORY Order Comment: 'TROP' Serial specimen #1, #2, #3, or #4: 1 TYPE CODE TESTS RESULT OUT OF RANGE REFERENCE UNITS LAB L501.4010 <0.06 ng/mL Normal 0.03 TROPONIN-I Result Comment: TROPONIN-I EXPECTED VALUES <0.05 NEGATIVE 0.06 - 0.59 AT RISK OF [place] > OR = 0.60 SUGGEST TN Performed By: #### L500.2500, L501.4010 #### [facility] [address] [place], [address] BNP,B-TYPE NATRIURETIC Collected: 12/02/2017 Status: F Source: ROMEL PEPTIDE 2:36 PM [facility] REPOSITORY TYPE CODE TESTS RESULT OUT OF RANGE REFERENCE UNITS LAB L503.6620 0-100 pg/mL High B-TYPE 252.0 KAVIN PEP Performed By: #### L503.6620 #### [facility] [address] [place], [address] MAGNESIUM Collected: 12/02/2017 Status: F Source: ROMEL 2:35 PM [facility] REPOSITORY TYPE CODE TESTS RESULT OUT OF RANGE REFERENCE UNITS LAB L501.5200 1.6-2.6 mg/dL Normal MG 2.1 Result Comment: Please note revised Magnesium reference range effective 2017. Performed By: #### L501.5200, L501.9520 #### [facility] [address] [place], [address] THYROID STIM HORMONE Collected: 12/02/2017 Status: F Source: ROMEL (TSH) 2:[facility] PM [facility] TYPE CODE TESTS RESULT OUT OF RANGE REFERENCE UNITS LAB L501.9520 0.358-3.74 uIU/mL Normal TSH 2.65 Performed By: #### L501.5200, L501.9520 #### [facility] [address] [place], [address] CHEST 1 VIEW Observed: 12/02/2017 Status: F Source: [place] (PORTABLE) 2:24 PM [facility] REPOSITORY [facility] Imaging Services [address] [place] [address] Chest 1 View (Portable) MR#: [id number] Acct: [id number] Name: MILAGROS STEVENSON Rep #: [id number] : 1935 F 82 From: Edward Barrett MD PCP: POLI MENDIETA Status: REG ER Study: Chest 1 View (Portable) Date of Exam: 12/02/17 Exam# [id number] Ordering Dr: Dm Feliciano MD STUDY: X-RAY [...] , CC: Dm Feliciano MD; POLI MENDIETA Stencil Typist: Signed XR CHEST 2 VIEWS Observed: 11/24/2017 Status: F Source: [employer] 1:34 PM [facility] REPOSITORY ORIGINAL XR CHEST 2 VIEWS CLINICAL [...] 2 VIEWS Observed: 11/10/2017 Status: F Source: [employer] 3:41 PM [facility] REPOSITORY ORIGINAL XR CHEST 2 VIEWS CLINICAL [...] SOURCE Drug oxycodone Anaphylaxis Unknown Romel 9 Allergy/717192698( HCl/J518488408 Community SNOMED CT) (RXNORM) Hospital Repository Drug Sulfa Anaphylaxis Unknown Cameron 9 Allergy/207954504( (Sulfonamide Community SNOMED CT) Antibiotics)/F Hospital 276952157(RXNO Repository RM) Drug guaifenesin/F0 Unknown Unknown Cameron 9 Allergy/960326366( 21530826(RXNOR Community SNOMED CT) M) Hospital Repository Drug phenylephrine/ Unknown Unknown Cameron 9 Allergy/118414609( O995877631(RXN Community SNOMED CT) ORM) Hospital Repository Drug clindamycin/F0 Unknown Unknown Romel 9 Allergy/706354065( 03745887(RXNOR Community SNOMED CT) M) Hospital Repository Drug phenylpropanol Unknown Unknown Cameron 9 Allergy/873904082( amine/O9284949 Community SNOMED CT) 34(RXNORM) Hospital Repository Drug vancomycin/F00 Hives Unknown Cameron 9 Allergy/166589932( 0441072(RXNORM Community SNOMED CT) ) Hospital Repository Miscellaneous BETA BLOCKERS Unknown Unknown Romel 9 Allergy/279354703( Community SNOMED CT) Hospital Repository ENCOUNTERS ENCOUNTERS ADMIT/DISCHARGE ACCOUNT NUMBER ADMITTING ENCOUNTER LOCATION SOURCE CLASS 09/28/2018 [id number] Shahriar, Inpatient Romel [place] Ghasem Encounter [facility] ding:Guillermo Repository : BAQ512Hzr: 1 09/28/2018 [id number] Ashelfah, Ambulatory BMSBuilding: Romel Ghasem BMS.[facility] Repository 09/28/2018 [id number] Ahsanelf, Ambulatory BMSBuilding: Romel Ghasem BMS.[facility] Repository 09/28/2018 [id number] Ashelf, Ambulatory BMSBuilding: Romel Ghasem BMS.[facility] Repository 09/28/2018 [id number] Ahsanelfah, Ambulatory BMSBuilding: Cameron Ghasem BMS.[facility] Repository 09/28/2018 [id number] Ashelfah, Ambulatory BMSBuilding: Romel Ghasem BMS.[facility] Repository 09/28/2018 [id number] Stephanie, Ambulatory BMSBuilding: Cameron Ghasem BMS.[facility] Repository 09/28/2018 [id number] Ashelfah, Ambulatory BMSBuilding: Romel Ghasem BMS.[facility] Repository 09/28/2018/09/28/19 [id number] Emergency BBuilding:ER [facility] Repository 09/15/2018/09/23/19 [id number] Ashelfah, Inpatient Romel Romel 19 Ghasem Encounter [facility] ding:PCURoom Repository : [id number]: 1 09/15/2018 [id number] Ashelfah, Ambulatory BMSBuilding: Romel Ghasem BMS.[facility] Repository 09/15/2018 [id number] [place]helfah, Ambulatory BMSBuilding: Romel Ghasem BMS.[facility] Repository 09/15/2018 [id number] Ashelfah, Ambulatory BMSBuilding: Cameron Ghasem BMS.[facility] Repository 09/15/2018 [id number] Ashelfah, Ambulatory BMSBuilding: Cameron Ghasem BMS.[facility] Repository 09/15/2018 [id number] Ashelfah, Ambulatory BMSBuilding: Cameron Ghasem BMS.[facility] Repository 09/15/2018 [id number] Ashelfah, Ambulatory BMSBuilding: Romel Ghasem BMS.[facility] Repository 09/15/2018 [id number] Ashelfah, Ambulatory BMSBuilding: Cameron Ghasem BMS.[facility] Repository 09/15/2018 [id number] Ashelfah, Ambulatory BMSBuilding: Romel Ghasem BMS.[facility] Repository 09/15/2018 [id number] Ashelfah, Ambulatory BMSBuilding: Romel Ghasem BMS.[facility] Repository 09/15/2018/09/23/19 [id number] Ambulatory BMSBuilding: Cameron 19 [facility] Repository 09/10/2018/09/10/19 [id number] Ambulatory BBuilding:OL [place] 19 [facility] Repository 09/01/2018/09/01/20 [id number] Ambulatory BBuilding:JORGITO [place] 18 [facility] Repository 08/17/2018 [id number] Ambulatory BMSBuilding: Romel [facility] Repository 08/16/2018 [id number] Sementi, Ambulatory BMSBuilding: Romel Sarah BMS.[facility] Repository 08/16/2018 [id number] Sementi, Ambulatory BMSBuilding: Cameron Sarah BMS.[facility] Repository 08/16/2018 [id number] Sementi, Ambulatory BMSBuilding: Romel Sarah BMS.[facility] Repository 08/16/2018 [id number] Sementi, Ambulatory BMSBuilding: Romel Sarah BMS.[facility] Repository 08/16/2018/08/19/20 [id number] Sementi, Inpatient [address] ding:PCURoom Repository : IIB709Jhu: 1 04/12/2018/04/12/20 [id number] Ambulatory BMSBuilding: [address] Repository 04/12/2018/04/12/20 [id number] Ambulatory BMSBuilding: [address] Repository 04/11/2018/04/12/20 [id number] White, Ambulatory [address] ding:PCURoom Repository : [id number] 04/11/2018 [id number] White, Ambulatory BMSBuilding: Cameron Constance BMS.[facility] Repository 04/11/2018 [id number] White, Ambulatory BMSBuilding: Cameron Constance BMS.[facility] Repository 04/06/2018/04/06/20 [id number] Ambulatory BMSBuilding: Romel 18 BMS.[facility] Repository 03/11/2018/03/11/20 [id number] Emergency [address] ding:ED Repository 03/02/2018/03/02/20 [id number] Ambulatory BMSBuilding: Romel 18 BMS.[facility] Repository 01/27/2018 [id number] Ambulatory BMSBuilding: [facility] Repository 01/26/2018 [id number] Ambulatory [facility] ding:PSN Repository 01/20/2018 [id number] [facility] 01/19/2018 [id number] Ambulatory [facility] ding:PSN Repository 12/25/2017/12/26/19 [id number] Ambulatory BMSBuilding: Romel BMS.[facility] Repository 12/21/2017 [id number] Ambulatory BMS [facility] Repository 12/02/2017/12/07/19 [id number] White, Inpatient Romel [address] ding:XB9Qgqr Repository : EQ085Gew: 1 12/02/2017 [id number] White, Ambulatory BMSBuilding: Cameron BMS.[facility] Repository 12/02/2017 [id number] White[facility] 12/02/2017 [id number] White, Ambulatory BMSBuilding: Romel BMS.CF.[facility] Repository 12/02/2017 [id number] White, Ambulatory BMSBuilding: Cameron BMS.CF.[facility] Repository 12/02/2017 [id number] White, Ambulatory BMSBuilding: Cameron BMS.[facility] Repository 12/02/2017 [id number] White, Ambulatory BMSBuilding: Cameron BMS.CF.[facility] Repository 12/02/2017 [id number] White, Ambulatory BMSBuilding: Cameron BMS.[facility] Repository 12/02/2017 [id number] White, Ambulatory BMSBuilding: Romel BMS.CF.[facility] Repository 12/02/2017 [id number] White, Ambulatory BMSBuilding: Cameron Constance BMS.[facility] Repository 12/02/2017/12/07/19 [id number] Ambulatory BMSBuilding: Romel [address] [place] [address] Repository 12/02/2017 [id number] Ambulatory BMSBuilding: Cameron BMS.[facility] Repository 11/24/2017/11/25/19 [id number] Ambulatory [address] ding:[employer] [facility] Repository 11/10/2017/11/11/19 [id number] [address] [facility] ding:[facility] Repository PAYERS PAYERS ENCOUNTER GUARANTOR PAYER SUBSCRIBER SOURCE 09/28/2018 EDRA A [id number] Primary EDRA A YODERDOB: Romel BLADIMIR Insurance:MEDICARE [id number] [facility] A [facility] [address]497Wty: (330) Number: Repository [phone] () [id number] Date:2018-09-28 09/28/2018 Secondary EDRA A YODERDOB: Cameron Insurance:MUTUAL OF [id number] [facility] Number: [facility] [id number] Repository Date:8626-44-74WNBHRV [place] [address]GB: 09/28/2018 Tertiary NOT GIVENUNK Cameron Insurance:SELF [facility]Y [facility]: Effective Repository Date:2018-09-28 09/28/2018 EDRA A [id number] Primary EDRA A YODERDOB: Cameron BLADIMIR Insurance:MEDICARE [id number] [facility] [address]5216Vgf: (330) Number: Repository [phone] () [id number] Date:2018-09-28 09/28/2018 Secondary EDRA A YODERDOB: Cameron Insurance:MUTUAL OF [id number] Jewish Medical Center Number: Hospital [id number] Repository Date:2207-65-94SNHPFP [place] [address]WG: 09/28/2018 Tertiary NOT GIVENUNK Cameron Insurance:SELF PAY [facility] Hospital Number: Effective Repository Date:2018-09-28 09/28/2018 EDRA A [id number] Primary EDRA A YODERDOB: Cameron BLADIMIR Insurance:MEDICARE [id number] Jewish Hospital 57899Lyv: (330) Number: Repository [phone] () [id number] Date:2018-09-28 09/28/2018 Secondary EDRA A YODERDOB: Cameron Insurance:MUTUAL OF [id number] Jewish Medical Center Number: [facility] [id number] Repository Date:1676-62-89FWOUHY [place], [place] [address]MF: 09/28/2018 Tertiary NOT GIVENUNK Romel Insurance:SELF PAY [facility] Number: Effective Repository Date:2018-09-28 09/28/2018 EDRA A [id number] Primary EDRA A YODERDOB: Romel BLADIMIR Insurance:MEDICARE [id number] [facility] Hospital 13413Htx: (330) Number: Repository [phone] () [id number] Date:2018-09-28 09/28/2018 Secondary EDRA A YODERDOB: Cameron Insurance:MUTUAL OF [id number] Jewish Medical Center Number: [facility] [id number] Repository Date:0654-19-03OHHTVE [place] [address]UU: 09/28/2018 Tertiary NOT GIVENUNK Cameron Insurance:SELF PAY [facility] Number: Effective Repository Date:2018-09-28 09/28/2018 EDRA A [id number] Primary EDRA A YODERDOB: Cameron BLADIMIR Insurance:MEDICARE [id number] [facility] Hospital [address]Dpj: (330) Number: Repository [phone] () [id number] Date:2018-09-28 09/28/2018 Secondary EDRA A YODERDOB: Romel Insurance:MUTUAL OF [id number] Jewish Medical Center Number: [facility] [id number] Repository Date:4436-66-79IPUXPESANDY [place], [place] [address]DA: 09/28/2018 Tertiary NOT GIVENUNK Cameron Insurance:SELF PAY [facility] Number: Effective Repository Date:2018-09-28 09/28/2018 EDRA A [id number] Primary EDRA A YODERDOB: Cameron BLADIMIR Insurance:MEDICARE [id number] PART A [facility] [address]Kmo: (330) Number: Repository [phone] () [id number] Date:2018-09-28 09/28/2018 Secondary EDRA A YODERDOB: Cameron Insurance:MUTUAL OF [id number] Jewish Medical Center Number: [facility] [id number] Repository Date:3598-60-30DDJOVP [place], [place] [address]GV: 09/28/2018 Tertiary NOT GIVENUNK Romel Insurance:SELF PAY [facility] Hospital Number: Effective Repository Date:2018-09-28 09/28/2018 EDRA A [id number] Primary EDRA A YODERDOB: Romel BLADIMIR Insurance:MEDICARE [id number] Health – [facility] A [facility] 51744Ebm: (330) Number: Repository [phone] () [id number] Date:2018-09-28 09/28/2018 Secondary EDRA A YODERDOB: Romel Insurance:MUTUAL OF [id number] Jewish Medical Center Number: [facility] [id number] Repository Date:7845-56-85LEXIMJ [place], [place] [address]OR: 09/28/2018 Tertiary NOT GIVENUNK Romel Insurance:SELF PAY [facility] Hospital Number: Effective Repository Date:2018-09-28 09/28/2018 EDRA A [id number] Primary EDRA A YODERDOB: Romel BLADIMIR Insurance:MEDICARE [id number] Health – Soin Medical Center A [facility] 15287Smc: (330) Number: Repository [phone] () [id number] Date:2018-09-28 09/28/2018 Secondary EDRA A YODERDOB: Cameron Insurance:MUTUAL OF [id number] Jewish Medical Center Number: [facility] [id number] Repository Date:4514-82-97XXBIFTSANDY [place], [place] [address]UH: 09/28/2018 Tertiary NOT GIVENUNK Romel Insurance:SELF PAY [facility] Hospital Number: Effective Repository Date:2018-09-28 09/28/2018 EDRA YODERDOB: Primary EDRA YODERDOB: [facility] Insurance:MEDICARE [id number] [facility] PART B [address] Repository [place], [place] Number: [place] [address]Ynt: [phone] [id number] [address]26[address]Noy: Date:2018-09-28 [id number] ()Tel: [phone] () (WP) Name:[facility] 000-0000 () [address] [address]RT: 09/28/2018 Secondary EDRA YODERDOB: [facility] Insurance:MUTUAL OF [id number] Repository Number: [place] [id number] [address]Fjx: (330) Date:2018-09-287726422-71-73Iwya ()Tel: (000) Name:[facility] [place] 000-0000 () [place], [place] [address]SU: 09/15/2018 EDRA A [id number] Primary EDRA A YODERDOB: Cameron BLADIMIR Insurance:MEDICARE [id number] [place], [place] PART A [facility] [address]462Ijd: (330) Number: Repository [phone] () [id number] Date:2018-09-15 09/15/2018 Secondary EDRA A YODERDOB: Cameron Insurance:MUTUAL OF [id number] Count includes the [facility] Number: [facility] [id number] Repository Date:0563-83-45YTGMGFSANDY [place], [place] [address]KJ: 09/15/2018 Tertiary NOT GIVENUNK Cameron Insurance:SELF PAY [facility] Hospital Number: Effective Repository Date:2018-09-15 09/15/2018 EDRA A [id number] Primary EDRA A YODERDOB: Romel BLADIMIR Insurance:MEDICARE [id number] [place], [place] PART A [facility] [address]Jgc: (330) Number: Repository [phone] () [id number] Date:2018-09-15 09/15/2018 Secondary EDRA A YODERDOB: Romel Insurance:MUTUAL OF [id number] Jewish Medical Center Number: Hospital [id number] Repository Date:0097-27-73UGICPL [place], [place] [address]BD: 09/15/2018 Tertiary NOT GIVENUNK Cameron Insurance:SELF PAY [facility] Hospital Number: Effective Repository Date:2018-09-15 09/15/2018 EDRA A [id number] Primary EDRA A YODERDOB: Romel BLADIMIR Insurance:MEDICARE [id number] Health – Soin Medical Center A [facility] [address]384Gaz: (330) Number: Repository [phone] () [id number] Date:2018-09-15 09/15/2018 Secondary EDRA A YODERDOB: Romel Insurance:MUTUAL OF [id number] Jewish Medical Center Number: Hospital [id number] Repository Date:1675-17-45RWDJIK [place], [place] [address]HS: 09/15/2018 Tertiary NOT GIVENUNK Cameron Insurance:SELF PAY [facility] Hospital Number: Effective Repository Date:2018-09-15 09/15/2018 EDRA A [id number] Primary EDRA A YODERDOB: Cameron BLADIMIR Insurance:MEDICARE [id number] [place], [place] PART A [facility] [address]Xfy: (330) Number: Repository [phone] () [id number] Date:2018-09-15 09/15/2018 Secondary EDRA A YODERDOB: Romel Insurance:MUTUAL OF [id number] Jewish Medical Center Number: [facility] [id number] Repository Date:4632-17-01ACGQOQSANDY [place], [place] [address]HM: 09/15/2018 Tertiary NOT GIVENUNK Romel Insurance:SELF PAY [facility] Number: Effective Repository Date:2018-09-15 09/15/2018 EDRA A [id number] Primary EDRA A YODERDOB: Romel BLADIMIR Insurance:MEDICARE [id number] [facility] Hospital [address]Fac: (330) Number: Repository [phone] () [id number] Date:2018-09-15 09/15/2018 Secondary EDRA A YODERDOB: Romel Insurance:MUTUAL OF [id number] Jewish Medical Center Number: [facility] [id number] Repository Date:5456-22-94FZOTEL [place], [place] [address]CH: 09/15/2018 Tertiary NOT GIVENUNK Romel Insurance:SELF PAY [facility] Number: Effective Repository Date:2018-09-15 09/15/2018 EDRA A [id number] Primary EDRA A YODERDOB: Romel BLADIMIR Insurance:MEDICARE [id number] Jewish Hospital 21817Lez: (330) Number: Repository [phone] () [id number] Date:2018-09-15 09/15/2018 Secondary EDRA A YODERDOB: Cameron Insurance:MUTUAL OF [id number] Jewish Medical Center Number: [facility] [id number] Repository Date:4882-68-47DDADANSANDY [place], [place] [address]VD: 09/15/2018 Tertiary NOT GIVENUNK Cameron Insurance:SELF PAY [facility] Number: Effective Repository Date:2018-09-15 09/15/2018 EDRA A [id number] Primary EDRA A YODERDOB: Romel BLADIMIR Insurance:MEDICARE [id number] [facility] Hospital [address]Vpu: (330) Number: Repository [phone] () [id number] Date:2018-09-15 09/15/2018 Secondary EDRA A YODERDOB: Romel Insurance:MUTUAL OF [id number] Jewish Medical Center Number: Hospital [id number] Repository Date:4649-56-75QABEDB [place] [address]XP: 09/15/2018 Tertiary NOT GIVENUNK Cameron Insurance:SELF PAY [facility] Hospital Number: Effective Repository Date:2018-09-15 09/15/2018 EDRA A [id number] Primary EDRA A YODERDOB: Cameron BLADIMIR Insurance:MEDICARE [id number] Jewish Hospital [address]Jvo: (330) Number: Repository [phone] () [id number] Date:2018-09-15 09/15/2018 Secondary EDRA A YODERDOB: Romel Insurance:MUTUAL OF [id number] Jewish Medical Center Number: [facility] [id number] Repository Date:8554-64-81LIKKZT [place], [place] [address]CD: 09/15/2018 Tertiary NOT GIVENUNK Cameron Insurance:SELF PAY [facility] Hospital Number: Effective Repository Date:2018-09-15 09/15/2018 EDRA A [id number] Primary EDRA A YODERDOB: Romel BLADIMIR Insurance:MEDICARE [id number] Jewish Hospital [address]971Dwq: (330) Number: Repository [phone] () [id number] Date:2018-09-15 09/15/2018 Secondary EDRA A YODERDOB: Cameron Insurance:MUTUAL OF [id number] Jewish Medical Center Number: [facility] [id number] Repository Date:4946-83-51ICNZZI [place], [place] [address]MV: 09/15/2018 Tertiary NOT GIVENUNK Romel Insurance:SELF PAY [facility] Number: Effective Repository Date:2018-09-15 09/15/2018 EDRA A [id number] Primary EDRA A YODERDOB: Romel BLADIMIR Insurance:MEDICARE [id number] Jewish Hospital [address]Oqy: (330) Number: Repository [phone] () [id number] Date:2018-09-15 09/15/2018 Secondary EDRA A YODERDOB: Romel Insurance:MUTUAL OF [id number] Jewish Medical Center Number: Hospital [id number] Repository Date:8740-73-40BYAUIV [place], [place] [address]PU: 09/15/2018 Tertiary NOT GIVENUNK Romel Insurance:SELF PAY [facility] Hospital Number: Effective Repository Date:2018-09-15 09/15/2018 EDRA A [id number] Primary EDRA A YODERDOB: Romel BLADIMIR Insurance:MEDICARE [id number] [facility] Hospital [address]Cyp: (330) Number: Repository [phone] () [id number] Date:2018-09-15 09/15/2018 Secondary EDRA A YODERDOB: Cameron Insurance:MUTUAL OF [id number] Jewish Medical Center Number: Hospital [id number] Repository Date:8850-79-81UZIFEASANDY [place], [place] [address]EY: 09/15/2018 Tertiary NOT GIVENUNK Romel Insurance:SELF PAY [facility] Number: Effective Repository Date:2018-09-15 09/10/2018 EDRA YODERDOB: Primary EDRA YODERDOB: [facility] [id number] Insurance:MEDICARE [id number] Foundation BLADIMIR PART B INSCOPolicy 9 BLADIMIR Repository OLEGARIO ALONSO Number: OLEGARIO ALONSO [address]Sue: 330 [id number] [address]Kgw: Date:2018-09-10264 (HP)Tel: (999) [phone] (HP) (WP) Name:[facility] 000-0000 () Administrators [address] [address]KV: 09/10/2018 Secondary EDRA YODERDOB: [facility] Insurance:MUTUAL OF [id number] Repository Number: OLEGARIO ALONSO [id number] [address]Jir: (330) Date:2018-09-104512-98-68Aszd ()Tel: (000) Name:CMUTUAL [facility] 000-0000 () [place] CHU [address]QZ: 09/01/2018 EDRA YODERDOB: Primary EDRA YODERDOB: [facility] Insurance:MEDICARE [id number] [facility] PART B [address] OLEGARIO ALONSO Number: O[place]IO [place]ON[place] [address]Ggs: (330) [id number] [address]93[address]Tuy: Date:2018-09-01264 ()Tel: (999) [phone] () (WP) Name:[facility] 000-0000 () Administrators [address] [address]PZ: 09/01/2018 Secondary EDRA YODERDOB: [facility] Insurance:MUTUAL OF [id number] [address] Repository Number: OLEGARIO ALONSO [id number] [address]Jzg: (330) Date:2018-09-012646204-71-37Orhd ()Tel: (513) Name:[facility] [place] 000-0000 () [place], [place] [address]XY: 08/17/2018 EDRA A [id number] Primary EDRA A YODERDOB: Cameron BLADIMIR Insurance:MEDICARE [id number] [place] PART A [facility] [address]Ufq: (330) Number: Repository [phone] () [id number] Date:2018-08-16 08/17/2018 Secondary EDRA A YODERDOB: Romel Insurance:MUTUAL OF [id number] Jewish Medical Center Number: [facility] [id number] Repository Date:2014-01-85DEMKQB [place], [place] [address]LV: 08/17/2018 Tertiary NOT GIVENUNK Cameron Insurance:SELF PAY [facility] Number: Effective Repository Date:2018-08-17 08/16/2018 EDRA A [id number] Primary EDRA A YODERDOB: Cameron BLADIMIR Insurance:MEDICARE [id number] Health – [facility]in [facility] A [facility] [address]Hjb: (330) Number: Repository [phone] () [id number] Date:2018-08-16 08/16/2018 Secondary EDRA A YODERDOB: Romel Insurance:MUTUAL OF [id number] Jewish Medical Center Number: [facility] [id number] Repository Date:0987-88-17YIMFUI [place] [address]UA: 08/16/2018 Tertiary NOT GIVENUNK Cameron Insurance:SELF [facility]Y [facility] Effective Repository Date:2018-08-16 08/16/2018 EDRA A [id number] Primary EDRA A YODERDOB: Romel BLADIMIR Insurance:MEDICARE [id number] PART A [facility] [address]Dbh: (330) Number: Repository [phone] () [id number] Date:2018-08-16 08/16/2018 Secondary EDRA A YODERDOB: Romel Insurance:MUTUAL OF [id number] [facility] Number: [facility] [id number] Repository Date:1196-62-83JWQZQLTAYL[place], [place] [address]XY: 08/16/2018 Tertiary NOT GIVENUNK Romel Insurance:SELF PAY [facility] Number: Effective Repository Date:2018-08-16 08/16/2018 EDRA A [id number] Primary EDRA A YODERDOB: Cameron BLADIMIR Insurance:MEDICARE [id number] [facility] [address]Eua: (330) Number: Repository [phone] () [id number] Date:2018-08-16 08/16/2018 Secondary EDRA A YODERDOB: Romel Insurance:MUTUAL OF [id number] [place] [address] Number: [facility] [id number] Repository Date:1904-36-57CUXUON [place] [address]HY: 08/16/2018 Tertiary NOT GIVENUNK Cameron Insurance:SELF PAY [facility] Number: Effective Repository Date:2018-08-16 08/16/2018 EDRA A [id number] Primary EDRA A YODERDOB: Cameron BLAD[place]IR Insurance:MEDICARE [id number] Jewish Hospital [address]Nel: (330) Number: Repository [phone] () [id number] Date:2018-08-16 08/16/2018 Secondary EDRA A YODERDOB: Cameron Insurance:MUTUAL OF [id number] [place] [address] Number: [facility] [id number] Repository Date:6757-75-79UVDRBOTAYLOR, [place] [address]IL: 08/16/2018 Tertiary NOT GIVENUNK Cameron Insurance:SELF PAY [facility] Number: Effective Repository Date:2018-08-16 08/16/2018 EDRA A [id number] Primary EDRA A YODERDOB: Cameron BLADIMIR Insurance:MEDICARE [id number] [place] PART A [facility] [address]Hue: (330) Number: Repository [phone] () [id number] Date:2018-08-16 08/16/2018 Secondary EDRA A YODERDOB: Cameron Insurance:MUTUAL OF [id number] Jewish Medical Center Number: [facility] [id number] Repository Date:6699-69-90JYRVFM [place] [address]PZ: 08/16/2018 Tertiary NOT GIVENUNK Cameron Insurance:SELF PAY [facility] Number: Effective Repository Date:2018-08-16 04/12/2018 EDRA A [id number] Primary EDRA A YODERDOB: Romel BLADIMIR Insurance:MEDICARE [id number] [place] PART A [facility] [address]Tev: (330) Number: Repository [phone] () [id number] Date:2018-04-11 04/12/2018 Secondary EDRA A YODERDOB: Romel Insurance:MUTUAL OF [id number] Jewish Medical Center Number: [facility] [id number] Repository Date:4814-95-68MZUIAC [place], [place] [address]LT: 04/12/2018 Tertiary NOT GIVENUNK Cameron Insurance:SELF PAY [facility] Number: Effective Repository Date:2018-04-12 04/12/2018 EDRA A [id number] Primary EDRA A YODERDOB: Romel BLADIMIR Insurance:MEDICARE [id number] [place], [place] PART A [facility] [address]Odc: (330) Number: Repository [phone] () [id number] Date:2018-04-11 04/12/2018 Secondary EDRA A YODERDOB: Romel Insurance:MUTUAL OF [id number] Jewish Medical Center Number: [facility] [id number] Repository Date:9846-28-00ADTWPJ [place] [address]QL: 04/12/2018 Tertiary NOT GIVENUNK Romel Insurance:SELF PAY [facility] Number: Effective Repository Date:2018-04-12 04/11/2018 EDRA A [id number] Primary EDRA A YODERDOB: Romel BLAD[place]IR Insurance:MEDICARE [id number] Jewish Hospital [address]2Wyj: (330) Number: Repository [phone] () [id number] Date:2018-04-11 04/11/2018 Secondary EDRA A YODERDOB: Cameron Insurance:MUTUAL OF [id number] Jewish Medical Center Number: [facility] [id number] Repository Date:6747-66-18TVPTSP [place] [address]AG: 04/11/2018 Tertiary NOT GIVENUNK Cameron Insurance:SELF PAY [facility] Number: Effective Repository Date:2018-04-11 04/11/2018 EDRA A [id number] Primary EDRA A YODERDOB: Cameron BLAD[place]IR Insurance:MEDICARE [id number] Jewish Hospital [address]Jcw: (330) Number: Repository [phone] () [id number] Date:2018-04-11 04/11/2018 Secondary EDRA A YODERDOB: Romel Insurance:MUTUAL OF [id number] Jewish Medical Center Number: [facility] [id number] Repository Date:6678-86-59DBWPAB [place] [address]GI: 04/11/2018 Tertiary NOT GIVENUNK Cameron Insurance:SELF PAY [facility] Number: Effective Repository Date:2018-04-11 04/11/2018 EDRA A [id number] Primary EDRA A YODERDOB: Romel BLADIMIR Insurance:MEDICARE [id number] [facility] [address]695Pyd: (330) Number: Repository [phone] () [id number] Date:2018-04-11 04/11/2018 Secondary EDRA A YODERDOB: Romel Insurance:MUTUAL OF [id number] Jewish Medical Center Number: [facility] [id number] Repository Date:0815-44-65LYKGSUTAYLOR, [place] [address]QJ: 04/11/2018 Tertiary NOT GIVENUNK Cameron Insurance:SELF PAY [facility] Number: Effective Repository Date:2018-04-11 04/06/2018 EDRA A [id number] Primary EDRA A YODERDOB: Romel BLADIMIR Insurance:MEDICARE [id number] Jewish Hospital [address]Qed: (330) Number: Repository [phone] () [id number] Date:2018-03-02 04/06/2018 Secondary EDRA A YODERDOB: Cameron Insurance:MUTUAL OF [id number] Jewish Medical Center Number: [facility] [id number] Repository Date:8084-80-92KNGINP [place], [place] [address]PC: 04/06/2018 Tertiary NOT GIVENUNK Romel Insurance:SELF PAY [facility] Number: Effective Repository Date:2018-03-30 03/11/2018 EDRA A [id number] Primary EDRA A YODERDOB: Cameron BLAD[place] Insurance:MEDICARE [id number] Jewish Hospital [address]30Qrx: (330) Number: Repository [phone] () [id number] Date:2018-03-11 03/11/2018 Secondary EDRA A YODERDOB: Romel Insurance:MUTUAL OF [id number] Jewish Medical Center Number: [facility] [id number] Repository Date:2307-42-13AZTJQWTAYL[place], [place] [address]BY: 03/11/2018 Tertiary NOT GIVENUNK Romel Insurance:SELF PAY [facility] Number: Effective Repository Date:2018-03-11 03/02/2018 EDRA A [id number] Primary EDRA A YODERDOB: Cameron [place]AD[place] Insurance:MEDICARE [id number] Jewish Hospital [address]1986Owj: (330) Number: Repository [phone] () [id number] Date:2017-12-29 03/02/2018 Secondary EDRA A YODERDOB: Cameron Insurance:MUTUAL OF [id number] Jewish Medical Center Number: Hospital [id number] Repository Date:3345-28-55VHITNI [place] [address]AZ: 03/02/2018 Tertiary NOT GIVENUNK Romel Insurance:SELF PAY [facility] Number: Effective Repository Date:2018-02-23 01/27/2018 EDRA A [id number] Primary EDRA A YODERDOB: Romel BLADIMIR Insurance:MEDICARE [id number] Jewish Hospital 12522Yzg: (330) Number: Repository [phone] () [id number] Date:2017-12-29 01/27/2018 Secondary EDRA A YODERDOB: Romel Insurance:MUTUAL OF [id number] Jewish Medical Center Number: [facility] [id number] Repository Date:6810-62-37FTSUKP [place] [address]DU: 01/27/2018 Tertiary NOT GIVENUNK Romel Insurance:SELF PAY [facility] Number: Effective Repository Date:2018-01-27 01/26/2018 EDRA A [id number] Primary EDRA A YODERDOB: Romel BLADIMIR Insurance:MEDICARE [id number] [facility] Hospital [address]41Qyc: (330) Number: Repository [phone] () [id number] Date:2017-12-29 01/26/2018 Secondary EDRA A YODERDOB: Romel Insurance:MUTUAL OF [id number] Jewish Medical Center Number: [facility] [id number] Repository Date:5997-92-96PPVUYK [place], [place] [address]AK: 01/26/2018 Tertiary NOT GIVENUNK Romel Insurance:SELF PAY [facility] Number: Effective Repository Date:2017-12-29 01/20/2018 EDRA A [id number] Primary EDRA A YODERDOB: Cameron BLADIMIR Insurance:MEDICARE [id number] Jewish Hospital [address]Nrz: (330) Number: Repository [phone] () [id number] Date:2017-12-29 01/20/2018 Secondary EDRA A YODERDOB: Cameron Insurance:MUTUAL OF [id number] [place] [address] Number: Hospital [id number] Repository Date:2122-99-71BRNWGI [place] [address]DU: 01/20/2018 Tertiary NOT GIVENUNK Cameron Insurance:SELF PAY [facility] Number: Effective Repository Date:2018-01-20 01/19/2018 EDRA A [id number] Primary EDRA A YODERDOB: Cameron BLADIMIR Insurance:MEDICARE [id number] [facility] Hospital [address]Nbt: (330) Number: Repository [phone] () [id number] Date:2017-12-29 01/19/2018 Secondary EDRA A YODERDOB: Cameron Insurance:MUTUAL OF [id number] Jewish Medical Center Number: Hospital [id number] Repository Date:5989-44-11ZCILOE [place], [place] [address]CQ: 01/19/2018 Tertiary NOT GIVENUNK Cameron Insurance:SELF PAY [facility] Number: Effective Repository Date:2017-12-29 12/25/2017 EDRA A [id number] Primary EDRA A YODERDOB: Romel BLADIMIR Insurance:MEDICARE [id number] Jewish Hospital [address]Jpi: (330) Number: Repository [phone] () [id number] Date:2017-12-08 12/25/2017 Secondary EDRA A YODERDOB: Romel Insurance:MUTUAL OF [id number] Jewish Medical Center Number: [facility] [id number] Repository Date:9630-52-45MEEILVTAYLOR, [place] [address]CT: 12/25/2017 Tertiary NOT GIVENUNK Cameron Insurance:SELF PAY [facility] Number: Effective Repository Date:2017-12-18 12/21/2017 Edra A [id number] Primary Edra A YoderDOB: Cameron Bladimir Insurance:MEDICARE [id number] [facility] [address]Ood: (330) Number: Repository [phone] () [id number] Date:2017-12-21 12/21/2017 Secondary Edra A YoderDOB: Romel Insurance:MUTUAL OF [id number] Jewish Medical Center Number: [facility] [id number] Repository Date:6501-18-70LZPOCL [place] [address]RB: 12/21/2017 Tertiary NOT GIVENUNK Romel Insurance:SELF PAY [facility] Number: Effective Repository Date:2017-12-21 12/02/2017 Edra A [id number] Primary Edra A YoderDOB: Romel Bladimir Insurance:MEDICARE [id number] Health [facility] [address]Ifc: (330) Number: Repository [phone] () [id number] Date:2017-12-02 12/02/2017 Secondary Edra A YoderDOB: Cameron Insurance:MUTUAL OF [id number] Jewish Medical Center Number: [facility] [id number] Repository Date:5456-40-84JHKZUITAYL[place], [place] [address]RJ: 12/02/2017 Tertiary NOT GIVENUNK Romel Insurance:SELF PAY [facility] Number: Effective Repository Date:2017-12-02 12/02/2017 Edra A [id number] Primary Edra A YoderDOB: Cameron Bladimir Insurance:MEDICARE [id number] Health [facility] Campus [address]Xau: (330) Number: Repository [phone] () [id number] Date:2017-12-02 12/02/2017 Secondary Edra A YoderDOB: Romel Insurance:MUTUAL OF [id number] Jewish Medical Center Number: [facility] [id number] Repository Date:2783-62-06UVPCRJ [place] [address]HR: 12/02/2017 Tertiary NOT GIVENUNK Romel Insurance:SELF PAY [facility] Number: Effective Repository Date:2017-12-02 12/02/2017 Edra A [id number] Primary Edra A YoderDOB: Romel Bladimir Insurance:MEDICARE [id number] Health [facility] Campus [address]655Fkl: (330) Number: Repository [phone] () [id number] Date:2017-12-02 12/02/2017 Secondary Edra A YoderDOB: Cameron Insurance:MUTUAL OF [id number] Jewish Medical Center Number: [facility] [id number] Repository Date:6675-16-64OIEJLS [place] [address]DD: 12/02/2017 Tertiary NOT GIVENUNK Cameron Insurance:SELF PAY [facility] Number: Effective Repository Date:2017-12-02 12/02/2017 Edra A [id number] Primary Edra A YoderDOB: [place] Insurance:MEDICARE [id number] Health [facility] Campus [address]Rxt: (330) Number: Repository [phone] () [id number] Date:2017-12-02 12/02/2017 Secondary Edra A YoderDOB: Cameron Insurance:MUTUAL OF [id number] Jewish Medical Center Number: [facility] [id number] Repository Date:5547-92-77EDEAKQ [place] [address]HL: 12/02/2017 Tertiary NOT GIVENUNK Romel Insurance:SELF PAY [facility] Number: Effective Repository Date:2017-12-02 12/02/2017 Edra A [id number] Primary Edra A YoderDOB: [place] Insurance:MEDICARE [id number] Health [facility] Campus 94140Xhl: (330) Number: Repository [phone] () [id number] Date:2017-12-02 12/02/2017 Secondary Edra A YoderDOB: Cameron Insurance:MUTUAL OF [id number] Jewish Medical Center Number: Hospital [id number] Repository Date:4593-11-91QMAKLZ [place] [address]IF: 12/02/2017 Tertiary NOT GIVENUNK [place] Insurance:SELF PAY [facility] Number: Effective Repository Date:2017-12-02 12/02/2017 Edra A [id number] Primary Edra A YoderDOB: [place] Insurance:MEDICARE [id number] Health [facility] Campus [address]442Knx: (330) Number: Repository [phone] () [id number] Date:2017-12-02 12/02/2017 Secondary Edra A YoderDOB: Cameron Insurance:MUTUAL OF [id number] Jewish Medical Center Number: Hospital [id number] Repository Date:3260-14-86PODFJY [place] [address]OE: 12/02/2017 Tertiary NOT GIVENUNK Romel Insurance:SELF PAY [facility] Number: Effective Repository Date:2017-12-02 12/02/2017 Edra A [id number] Primary Edra A YoderDOB: Romel Bladimir Insurance:MEDICARE [id number] Health [facility] Campus 10643Dyf: (330) Number: Repository [phone] () [id number] Date:2017-12-02 12/02/2017 Secondary Edra A YoderDOB: Cameron Insurance:MUTUAL OF [id number] Jewish Medical Center Number: Hospital [id number] Repository Date:6110-74-56FTSXIN [place] [address]RX: 12/02/2017 Tertiary NOT GIVENUNK [place] Insurance:SELF PAY [facility] Number: Effective Repository Date:2017-12-02 12/02/2017 Edra A [id number] Primary Edra A YoderDOB: [place] Insurance:MEDICARE [id number] Health [facility] Campus [address]Rmd: (330) Number: Repository [phone] () [id number] Date:2017-12-02 12/02/2017 Secondary Edra A YoderDOB: Romel Insurance:MUTUAL OF [id number] Jewish Medical Center Number: Hospital [id number] Repository Date:1995-16-12QLUQVL [place] [address]NX: 12/02/2017 Tertiary NOT GIVENUNK Romel Insurance:SELF PAY [facility] Number: Effective Repository Date:2017-12-02 12/02/2017 Edra A [id number] Primary Edra A YoderDOB: Romel Bladimir Insurance:MEDICARE [id number] Health [facility] Campus [address]29Lox: (330) Number: Repository [phone] () [id number] Date:2017-12-02 12/02/2017 Secondary Edra A YoderDOB: Romel Insurance:MUTUAL OF [id number] Jewish Medical Center Number: Hospital [id number] Repository Date:4699-95-83QEODQF [place] [address]LL: 12/02/2017 Tertiary NOT GIVENUNK Romel Insurance:SELF PAY [facility] Number: Effective Repository Date:2017-12-02 12/02/2017 Edra A [id number] Primary Edra A YoderDOB: Romel [place]adimir Insurance:MEDICARE [id number] Health [facility] 42879Zbc: (330) Number: Repository [phone] () [id number] Date:2017-12-02 12/02/2017 Secondary Edra A YoderDOB: [place] Insurance:MUTUAL OF [id number] Jewish Medical Center Number: Hospital [id number] Repository Date:2744-14-30ABAEXN [place] [address]KO: 12/02/2017 Tertiary NOT GIVENUNK [place] Insurance:SELF PAY [facility] Number: Effective Repository Date:2017-12-02 12/02/2017 EDRA A [id number] Primary EDRA A YODERDOB: Cameron BL[place] Insurance:MEDICARE [id number] [facility] Hospital [address]Dib: (330) Number: Repository [phone] () [id number] Date:2017-12-02 12/02/2017 Secondary EDRA A YODERDOB: Romel Insurance:MUTUAL OF [id number] Jewish Medical Center Number: [facility] [id number] Repository Date:0089-56-91SLPCEE [place], [place] [address]QK: 12/02/2017 Tertiary NOT GIVENUNK [place] Insurance:SELF PAY [facility] Number: Effective Repository Date:2017-12-02 12/02/2017 Edra A [id number] Primary Edra A YoderDOB: [place] Insurance:MEDICARE [id number] Health [facility] [address]Bwz: (330) Number: Repository [phone] () [id number] Date:2017-12-02 12/02/2017 Secondary Edra A YoderDOB: Romel Insurance:MUTUAL OF [id number] Jewish Medical Center Number: [facility] [id number] Repository Date:6329-63-76HOFYWG [place] [address]MF: 12/02/2017 Tertiary NOT GIVENUNK Romel Insurance:SELF PAY [facility]: Effective Repository Date:2017-12-02 11/24/2017 EDRA YODERDOB: Primary EDRA YODERDOB: [facility] Insurance:MEDICARE [id number] [facility] PART BPolicy Number: [address] [place], [place] [id number] [place], [place] [address]Itm: (330) Date:2017-11-24Tel: [id number] [phone] (HP)Tel: (999) Name:[facility] () () [facility] 000-0000 () [address] [place] [address]PJ: 11/24/2017 Secondary EDRA YODERDOB: [facility] Insurance:MUTUAL OF [id number] [facility] Number: 9 [facility] [id number] [place] Date:2017-11-24Tel: [id number] [phone] Name:[facility]UAL [facility] ()Tel: (000) [place]AN [place] 000-0000 (WP) [address]BY: 11/10/2017 EDRA YODERDOB: Primary EDRA YODERDOB: [facility] Insurance:MEDICARE [id number] [facility] PART BPolicy Number: 9 [place], [place] [id number] [place], [place] [address]Inu: (330) Date:2017-11-10Tel: [id number] [phone] ()Tel: [phone]) Name:[facility] () (WP) Administrators LLCPO 000-0000 (WP) [address] [address]Zbrceckcs, [place] [address]RW: 11/10/2017 Secondary EDRA ONEIL: [facility] Insurance:MUTUAL OF [id number] [facility] Number: 9 [facility] [id number] [place] Date:2017-11-10 [address]Egm: [phone] [phone] Name:[facility] [place] ()Tel: (000) SABINO CHU 000-0000 (WP) [address]GF:
== END 2018-10-05 14:26 | disposition home or self-care (01) | DRG 309 ==
PROVIDERS: Internal Medicine Cardiovascular Disease; Admitting Provider Internal Medicine; Family Provider Family Medicine; PCP Family Medicine; Referring Provider Hospitalist; Visit Provider Family Medicine
DX: R00.1 Bradycardia, unspecified (principal); I13.0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 heart and chronic kidney disease with heart failure and stage 1 through stage 4 chronic kidney disease, or unspecified chronic kidney disease; I50.32 Chronic diastolic (congestive) heart failure; N17.9 Acute kidney failure, unspecified; J96.11 Chronic respiratory failure with hypoxia; N18.4 Chronic kidney disease, stage 4 (severe); I47.2 Ventricular tachycardia; J44.9 Chronic obstructive pulmonary disease, unspecified; Z90.5 Acquired absence of kidney; Z85.528 Personal history of other malignant neoplasm of kidney; Z79.899 Other long term (current) drug therapy; Z87.891 Personal history of nicotine dependence; Z86.73 Personal history of transient ischemic attack (TIA), and cerebral infarction without residual deficits; M10.9 Gout, unspecified; I27.22 Pulmonary hypertension due to left heart disease; Z99.81 Dependence on supplemental oxygen; E66.9 Obesity, unspecified; Z68.37 Body mass index [BMI] 37.0-37.9, adult
CPT/HCPCS: 36415; 71046; 80048; 81001; 83735; 85025; 87086; 87088; 93005; 94640; 97110; 97161; 97165; 97530; 97802; J7040

== ENCOUNTER → 2018-10-12 09:14 | Outpatient (CLI) | payer MEDICARE, OTHER, SELFPAY ==
[2018-10-05 14:19] VITALS: BMI 37.2
[2018-10-12 10:57] LABS: Anion Gap 9 (5-15); BUN 32 mg/dL (7-18); BUN/Creat Ratio 18.6 RATIO (10-20); Calcium,Total 8.5 mg/dL (8.5-10.1); Chloride 113 mmol/L (98-107); Creatinine, Serum 1.72 mg/dL (0.55-1.02); EST Glomerular Filtration Rate 30 mL/min (>60); Est Glom Filt Rate - Afr Amer 37 mL/min (>60); Glucose 85 mg/dL (74-106); Sodium Level 143 mmol/L (136-145); Uric Acid 10.1 mg/dL (2.6-6.0)
[2018-10-12 11:12] LABS: Microalbumin:Creatinine Ratio 548.4 mg/g CRE (<30 mg/g CRE); Protein, Urine (Random) 197.2 mg/dL (<11.9); Protein:Creat Ratio 795 mg/g CRE (0-200)
== END ==
PROVIDERS: Family Provider Family Medicine; PCP Family Medicine; Referring Provider Internal Medicine Nephrology; Visit Provider Internal Medicine Nephrology
DX: N18.3 Chronic kidney disease, stage 3 (moderate) (principal)
CPT/HCPCS: 36415; 80048; 82043; 82570; 84156; 84550

== ENCOUNTER → 2018-10-12 12:34 | Outpatient (CLI) | payer MEDICARE, OTHER, SELFPAY ==
[2018-10-12 10:51] VITALS: BMI 37.2
[2018-10-12 11:56] VITALS: BMI 37.2
== END ==
PROVIDERS: Family Provider Family Medicine; PCP Family Medicine; Referring Provider Nurse Practitioner Family; Visit Provider Nurse Practitioner Family
DX: I47.2 Ventricular tachycardia (principal); N18.3 Chronic kidney disease, stage 3 (moderate)
CPT/HCPCS: 36415; 80048; 82043; 82570; 84156; 84550; 93225; 93226

== ENCOUNTER → 2018-10-25 10:02 | Outpatient (CLI) | payer MEDICARE, OTHER, SELFPAY ==
[2018-10-12 11:56] VITALS: BMI 37.2
[2018-10-25 12:56] LABS: Hematocrit 39.8 % (37-47); Hemoglobin 12.3 g/dl (12.0-15.0); Mean Corp Hgb Conc 30.9 g/gl (32-36); Mean Corpuscular Hgb 28.1 pg (27.0-32.0); Mean Corpuscular Volume 91.1 fL (81-99); Mean Platelet Vol. 10.1 fl (6.2-12.0); Platelet Count 306 K/mm3 (150-450); RBC Distribution Width CV 16.3 % (11.6-14.6); RBC Distribution Width SD 54.3 fl (35.1-43.9); Red Blood Count 4.37 M/mm3 (4.2-5.4); White Blood Count 8.8 K/mm3 (4.4-11.0)
[2018-10-25 13:00] LABS: Differential Indicated MANUAL DIFF; POSITIVE COUNT YES; POSITIVE DIFFERENTIAL NO; POSITIVE MORPHOLOGY YES
[2018-10-25 13:01] LABS: Erythrocyte Sedimentation Rate 33 mm/hr (0-30)
[2018-10-25 13:06] LABS: ALB/GLOB Ratio 0.6 RATIO (0.9-2.4); AST(SGOT) 24 U/L (15-37); Alanine Aminotransfer ALT/SGPT 22 U/L (13-56); Albumin, Serum 2.8 g/dL (3.2-5.0); Alkaline Phosphatase 67 U/L (45-117); Anion Gap 10 (5-15); BUN 28 mg/dL (7-18); BUN/Creat Ratio 15.6 RATIO (10-20); CRP 9.37 mg/L (0.0-3.0); Calcium,Total 9.1 mg/dL (8.5-10.1); Chloride 106 mmol/L (98-107); Creatinine, Serum 1.79 mg/dL (0.55-1.02); EST Glomerular Filtration Rate 29 mL/min (>60); Est Glom Filt Rate - Afr Amer 35 mL/min (>60); Globulin 4.4 g/dL (2.2-4.2); Glucose 82 mg/dL (74-106); Potassium 3.6 mmol/L (3.5-5.1); Protein, Total 7.2 g/dL (6.4-8.2); Sodium Level 145 mmol/L (136-145)
[2018-10-25 13:38] LABS: Anisocytosis 1+; Eosinophil 1 % (0-5); Lymphocyte 16 % (19-41); Macrocytosis RARE; Monocyte 11 % (0-10); Neutrophil-Band 2 % (0-5); Neutrophil-Segmented 70 % (47-70); Platelet Estimate ADEQUATE (ADEQ); Total Cells Counted 100 (MANUAL DIFF)
[2018-10-25 13:40] LABS: Absolute Neutrophil Count 6.3 X10^3/uL (2.0-7.7)
[2018-10-27 10:36] LABS: CCP IgG Antibodies 12 units (0-19); HEPATITIS B SURFACE AG Negative (Negative); Hep B Surface Antibodies Non Reactive (.); Hep C Antibodies <0.1 s/co ratio (0.0-0.9)
[2018-10-27 10:46] LABS: ANTINUCLEAR ANTIBODIES DIRECT Negative (Negative)
== END ==
PROVIDERS: Family Provider Family Medicine; PCP Family Medicine; Referring Provider Internal Medicine Rheumatology; Visit Provider Internal Medicine Rheumatology
DX: R76.8 Other specified abnormal immunological findings in serum (principal); N18.9 Chronic kidney disease, unspecified; J44.9 Chronic obstructive pulmonary disease, unspecified; I27.21 Secondary pulmonary arterial hypertension; I48.91 Unspecified atrial fibrillation; J96.11 Chronic respiratory failure with hypoxia; Z85.528 Personal history of other malignant neoplasm of kidney; Z90.5 Acquired absence of kidney
CPT/HCPCS: 36415; 80053; 85025; 85652; 86038; 86140; 86200; 86431; 86706; 86803; 87340

== ENCOUNTER 2018-11-02 10:14 | Emergency (ER) | payer MEDICARE, OTHER, SELFPAY ==
[2018-10-12 11:56] VITALS: BMI 37.2
[2018-11-02 10:14] VITALS: BP 167/96; PULSE 101; RESP 30; TEMP 36.6; O2SAT 87; BMI 38.5
--- NOTE | 2018-11-02 10:48 | CT_ITS ---
STUDY: CT ABDOMEN AND PELVIS WITHOUT CONTRAST REASON FOR EXAM: Female, 83 years old. Left flank pain. History of prior right nephrectomy for carcinoma. RADIATION DOSAGE (If Supplied By Facility): CTDIvol = ( 23.69 ) mGy, DLP = ( 1260.70 ) mGycm TECHNIQUE: Transaxial images were obtained from the dome of the diaphragm to the symphysis pubis without oral contrast, and without intravenous contrast. Sagittal and coronal images were reconstructed. Individualized dose optimization techniques were used for this CT. COMPARISON: Comparison is made with prior study dated March 11, 2018. FINDINGS: Stable scarring at the lung bases with the subpleural blebs. Small left pleural effusion. Coronary artery calcification. Normal liver. Normal gallbladder and extrahepatic biliary system. Normal spleen. There are pancreatic calcifications in the distribution of the ducts consistent with chronic pancreatitis. Normal bilateral adrenal glands. The patient is status post right nephrectomy. Normal left kidney. Normal visualized stomach. Normal small intestine. There are multiple colonic diverticula consistent with diverticulosis. There are surgical clips in the region of the appendix consistent with a prior appendectomy. There is diffuse atherosclerotic calcification of the abdominal aorta and its major visceral branches, without a demonstrated aneurysm. Normal inferior vena cava. Normal retroperitoneum. Normal urinary bladder. There is evidence of thickening of the anterior abdominal wall skin as well as increased markings in the subcutaneous fat suggestive of possible cellulitis. There are diffuse degenerative changes of the visualized lumbar spine. Stable grade 1 anterolisthesis of L4 on L5. CT/Abdomen/Pelvis without Cont IMPRESSION: Small left pleural effusion with scarring at the lung bases. Edematous changes seen in the anterior abdominal wall subcutaneous tissue as well as thickening of the anterior abdominal wall skin. Sigmoid diverticulosis. Electronically Signed: Terrell Solano, at 11:33 EST , Service support ,
[2018-11-02] MEDS: Ondansetron 4 MG/2 ML Vial IV (11:00)
[2018-11-02] MEDS: Morphine 4 MG/ML Syringe IV (11:00)
[2018-11-02 11:34] LABS: Anion Gap 12 (5-15); BUN 32 mg/dL (7-18); BUN/Creat Ratio 13.7 RATIO (10-20); Calcium,Total 8.9 mg/dL (8.5-10.1); Chloride 107 mmol/L (98-107); Creatinine, Serum 2.33 mg/dL (0.55-1.02); EST Glomerular Filtration Rate 21 mL/min (>60); Est Glom Filt Rate - Afr Amer 26 mL/min (>60); Estimated Creatinine Clearance 17.73 ml/min; Glucose 116 mg/dL (74-106); Potassium 4.2 mmol/L (3.5-5.1); Sodium Level 146 mmol/L (136-145)
[2018-11-02 11:57] LABS: Hematocrit 37.7 % (37-47); Hemoglobin 11.6 g/dl (12.0-15.0); Mean Corp Hgb Conc 30.8 g/gl (32-36); Mean Corpuscular Hgb 27.7 pg (27.0-32.0); Mean Platelet Vol. 10.3 fl (6.2-12.0); Platelet Count 321 K/mm3 (150-450); RBC Distribution Width CV 16.8 % (11.6-14.6); RBC Distribution Width SD 54.7 fl (35.1-43.9); Red Blood Count 4.19 M/mm3 (4.2-5.4); White Blood Count 6.9 K/mm3 (4.4-11.0)
[2018-11-02 12:00] LABS: Differential Indicated MANUAL DIFF; POSITIVE COUNT YES; POSITIVE DIFFERENTIAL NO; POSITIVE MORPHOLOGY YES
[2018-11-02 12:12] LABS: Basophil 1 % (0-1); Eosinophil 1 % (0-5); Lymphocyte 23 % (19-41); Monocyte 5 % (0-10); Neutrophil-Band 2 % (0-5); Neutrophil-Segmented 68 % (47-70); Total Cells Counted 100 (MANUAL DIFF)
[2018-11-02 12:13] LABS: Anisocytosis 1+; Hypochromasia 1+; Platelet Estimate ADEQUATE (ADEQ)
[2018-11-02 12:25] VITALS: BP 149/69; PULSE 85; RESP 18; O2SAT 95
[2018-11-02 12:27] LABS: Bacteria 0 SEEN /hpf (None Seen); Mucous, Urine 0 SEEN /hpf (<or=2+); Red Blood Cells-Urine 0 SEEN /hpf (0-5)
[2018-11-02 12:28] LABS: Color, Urine Yellow (Yellow); Glucose, Dipstick Normal (Normal); Ketone-Dipstick 5 mg/dl (Negative); Leukocyte Esterase-Dipstick 25 /ul (Negative); Nitrite-Dipstick Negative (Negative); Occult Blood-Urine Negative /ul (Negative); Protein-Dipstick 100 mg/dl (Negative); Urine Bilirubin Dipstick Negative (Negative); Urine Clarity Clear (Clear); Urine Urobilinogen 1 mg/dl (Normal)
[2018-11-02 12:37] LABS: Hyaline Cast 0-5 SEEN /lpf (0-5); Squamous Epithelial Cells - UA 0-5 SEEN /hpf (5-10); White Blood Cells 0-5 SEEN /hpf (0-5)
--- NOTE | 2018-11-02 13:23 | ED.VISSUMM ---
- ER Visit Summary Date of Service: 11/02/18 Chief Complaint: Left flank pain History of Present Illness: The patient is a 83 F who presents to the emergency department with left flank pain. She describes it as sharp in nature worse with movement and with touch. She denies any rash. She states she only has one kidney and is on the left side. She had a right-sided nephrectomy due to cancer. She notes that prior to last night and the pain getting worse her back was sore just above the area for a few days. She has been in the hospital recently with congestive heart failure. She also notes history of COPD and pulmonary hypertension. She is on chronic home O2. Physical Examination: Afebrile vital signs are stable. Patient is dyspneic when she exerts herself but this is not new. Patient has tenderness to palpation along the left paraspinal lumbar lower thoracic musculature. There is no rash. It is tender to even the lightest of touch. Test Results: Urinalysis is normal. Creatinine 2.333/32. White count 6.9. CT the flank did not demonstrate any ureterolithiasis or perinephric stranding or inflammatory changes. Emergency Department Course and Treatment: She received morphine and Zofran and she is resting more comfortably. I am going to prescribe [place] at home. Think is most likely muscular skeletal in nature and would recommend heat and stretching. Impression: 1. Muscular skeletal back pain This note was generated with [email or web address] dictation software. It may contain incorrect words, spelling, and punctuation that were not noted in review of the chart prior to signing ED Disposition - Plan for ED Patient: Disposition: Home or Assisted Living Instructions: ED Spasm Back No Trauma, ED Flank Pain Uncertain Cause Prescriptions: Hydrocodone Bitart/Apap 5-325 [[place] 5MG-325MG] 1 tab PO Q6H PRN PRN 3 Days #10 tab PRN Reason: Pain Referrals: Dustin Mendieta MD [Primary Care Provider] - 3-5 Days if not improving
--- NOTE | 2018-11-02 13:28 | ED.DCSUM_ITS ---
- ER Visit Summary Date of Service: 11/02/18 Chief Complaint: Left flank pain History of Present Illness: The patient is a 83 F who presents to the emergency department with left flank pain. She describes it as sharp in nature worse with movement and with touch. She denies any rash. She states she only has one kidney and is on the left side. She had a right-sided nephrectomy due to cancer. She notes that prior to last night and the pain getting worse her back was sore just above the area for a few days. She has been in the hospital recently with congestive heart failure. She also notes history of COPD and pulmonary hypertension. She is on chronic home O2. Physical Examination: Afebrile vital signs are stable. Patient is dyspneic when she exerts herself but this is not new. Patient has tenderness to palpation along the left paraspinal lumbar lower thoracic musculature. There is no rash. It is tender to even the lightest of touch. Test Results: Urinalysis is normal. Creatinine 2.333/32. White count 6.9. CT the flank did not demonstrate any ureterolithiasis or perinephric stranding or inflammatory changes. Emergency Department Course and Treatment: She received morphine and Zofran and she is resting more comfortably. I am going to prescribe [place] at home. Think is most likely muscular skeletal in nature and would recommend heat and stretching. Impression: 1. Muscular skeletal back pain This note was generated with [employer] dictation software. It may contain incorrect words, spelling, and punctuation that were not noted in review of the chart prior to signing ED Disposition - Plan for ED Patient: Disposition: Home or Assisted Living Instructions: ED Spasm Back No Trauma, ED Flank Pain Uncertain Cause Prescriptions: Hydrocodone Bitart/Apap 5-325 [[place] 5MG-325MG] 1 tab PO Q6H PRN PRN 3 Days #10 tab PRN Reason: Pain Referrals: Dustin Mendieta MD [Primary Care Provider] - 3-5 Days if not improving
== END 2018-11-02 13:40 | disposition home or self-care (01) ==
PROVIDERS: Emergency Provider Emergency Medicine; Family Provider Family Medicine; PCP Family Medicine
DX: M54.6 Pain in thoracic spine (principal); M54.5 Low back pain; J44.9 Chronic obstructive pulmonary disease, unspecified; I27.20 Pulmonary hypertension, unspecified; I50.9 Heart failure, unspecified; N18.9 Chronic kidney disease, unspecified; Z90.5 Acquired absence of kidney; Z85.528 Personal history of other malignant neoplasm of kidney; Z99.81 Dependence on supplemental oxygen; Z79.82 Long term (current) use of aspirin; Z79.899 Other long term (current) drug therapy
CPT/HCPCS: 74176; 80048; 81001; 85025; 96374; 96375; 99283; A4216; J2405

== ENCOUNTER 2018-11-15 15:17 | Emergency (ER) | payer MEDICARE, OTHER, SELFPAY ==
[2018-11-15 15:19] VITALS: BP 165/74; PULSE 78; RESP 16; TEMP 36.6; O2SAT 93; BMI 37.5
--- NOTE | 2018-11-15 17:09 | ED.VISSUMM ---
- ER Visit Summary Date of Service: 11/15/18 Chief Complaint: Anxiety History of Present Illness: The patient is a 83 F with increasing anxiety over the past 3 weeks. She feels like she cannot sleep and has had a sensation of skin crawling. She saw her primary doctor who started hydroxyzine, and she said her symptoms got worse. She stopped taking it. She denies any medical complaints, shortness of breath, chest pain, or any other issues. She has been doing well since her discharge from the hospital in September. She has been compliant with her medications otherwise and she is concerned that some of her new medications may be causing her symptoms. No other issues or complaints. Physical Examination: Afebrile and vital signs unremarkable. Patient is alert and oriented. No acute distress. Speaking in full sentences. Heart regular. Lungs clear. Skin appears normal. Patient is anxious. Test Results: None performed Emergency Department Course and Treatment: Patient presents with increasing anxiety that she attributes to 1 of her new medications, but she is not sure which medication. Her symptoms are worse with hydroxyzine. It sounds like medically she is doing well. She is compliant with her medications. Denies any increasing edema or trouble breathing. Denies chest pain or any other problems. She would like to stop the offending medication. I advised that she should be compliant with her medications at this time because she could deteriorate and require hospitalization again. I advised her to consult with her specialists to see if they could adjust her medications. She will discontinue hydroxyzine. She will try Ativan at bedtime. She was given a 3-day supply. She should follow-up with her PCP and her specialist. Return for any new or worsening issues. Treatment Plan: As above Disposition: Discharge Impression: 1. Anxiety This note was generated with [email or web address] software. It may contain incorrect words, spelling, and punctuation that were not noted in review of the chart prior to signing ED Disposition - Plan for ED Patient: Referrals: Dustin Mendieta MD [Primary Care Provider] -
[2018-11-15] MEDS: LORazepam 1 MG Tablet PO (17:12)
--- NOTE | 2018-11-15 17:15 | ED.DCSUM_ITS ---
- ER Visit Summary Date of Service: 11/15/18 Chief Complaint: Anxiety History of Present Illness: The patient is a 83 F with increasing anxiety over the past 3 weeks. She feels like she cannot sleep and has had a sensation of skin crawling. She saw her primary doctor who started hydroxyzine, and she said her symptoms got worse. She stopped taking it. She denies any medical complaints, shortness of breath, chest pain, or any other issues. She has been doing well since her discharge from the hospital in September. She has been compliant with her medications otherwise and she is concerned that some of her new medications may be causing her symptoms. No other issues or complaints. Physical Examination: Afebrile and vital signs unremarkable. Patient is alert and oriented. No acute distress. Speaking in full sentences. Heart regular. Lungs clear. Skin appears normal. Patient is anxious. Test Results: None performed Emergency Department Course and Treatment: Patient presents with increasing anxiety that she attributes to 1 of her new medications, but she is not sure which medication. Her symptoms are worse with hydroxyzine. It sounds like medically she is doing well. She is compliant with her m edications. Denies any increasing edema or trouble breathing. Denies chest pain or any other problems. She would like to stop the offending medication. I advised that she should be compliant with her medications at this time because she could deteriorate and require hospitalization again. I advised her to consult with her specialists to see if they could adjust her medications. She will discontinue hydroxyzine. She will try Ativan at bedtime. She was given a 3-day supply. She should follow-up with her PCP and her specialist. Return for any new or worsening issues. Treatment Plan: As above Disposition: Discharge Impression: 1. Anxiety This note was generated with [employer] software. It may contain incorrect words, spelling, and punctuation that were not noted in review of the chart prior to signing ED Disposition - Plan for ED Patient: Referrals: Dustin Mendieta MD [Primary Care Provider] -
--- NOTE | 2018-11-15 17:15 | ED.DEP ---
ED Disposition - Plan for ED Patient: Instructions: Understanding Anxiety Disorders Prescriptions: Lorazepam [Ativan] 1 mg PO QHS 3 Days #3 tab Referrals: Dustin Mendieta MD [Primary Care Provider] -
[2018-11-15 17:25] VITALS: BP 146/80; PULSE 74; RESP 18; O2SAT 93
== END 2018-11-15 17:44 | disposition home or self-care (01) ==
LOC: ED 17:34
PROVIDERS: Emergency Provider Emergency Medicine; Family Provider Family Medicine; PCP Family Medicine
DX: F41.9 Anxiety disorder, unspecified (principal); I13.0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 heart and chronic kidney disease with heart failure and stage 1 through stage 4 chronic kidney disease, or unspecified chronic kidney disease; N18.9 Chronic kidney disease, unspecified; I50.9 Heart failure, unspecified; J44.9 Chronic obstructive pulmonary disease, unspecified; I27.20 Pulmonary hypertension, unspecified; M10.9 Gout, unspecified; Z87.891 Personal history of nicotine dependence; Z86.73 Personal history of transient ischemic attack (TIA), and cerebral infarction without residual deficits; Z87.440 Personal history of urinary (tract) infections; Z85.528 Personal history of other malignant neoplasm of kidney; Z79.82 Long term (current) use of aspirin; Z79.899 Other long term (current) drug therapy
CPT/HCPCS: 99283

== ENCOUNTER 2018-12-02 08:31 | Emergency (ER) | payer MEDICARE, OTHER, SELFPAY ==
[2018-12-02 08:33] VITALS: BP 160/70; PULSE 84; RESP 20; TEMP 37.3; O2SAT 80; BMI 39.2
--- NOTE | 2018-12-02 08:57 | ED.VISSUMM ---
- ER Visit Summary Date of Service: 12/02/18 Chief Complaint: Left breast infection History of Present Illness: The patient is a 83 F reports a mild area of redness under her left breast for the last month or so. Over the last 2 or 3 days she states she now has redness over the entire left breast. She denies fever or chills. Patient was noted to be hypoxic on arrival. She wears home O2 chronically and the O2 tank ran empty while driving to the emergency room. Physical Examination: Blood pressure is 160/70, temperature 99.1 TA, heart rate 84, respiratory rate 20, pulse ox 80% on room air. At the time of my examination O2 sats are rising on nasal cannula. Patient sitting upright in bed no acute distress. Heart is regular rate and rhythm. Lungs sounds are clear. Abdomen is soft nontender. Skin examination reveals erythema with mild warmth to the left breast around the areola. There is no sign of shingles. There is no erythema in the breast fold. There is minimal tenderness. There is no focal abscess. Test Results: CBC was normal white count. Hemoglobin is 10.9. Chemistry studies reveal a BUN of 40 and creatinine of 2.89. Appears to be her baseline. Emergency Department Course and Treatment: Patient was given a dose of doxycycline here. On repeat evaluation O2 sat is 90-91% on her oxygen and patient feels significantly improved. She does have a new oxygen tank switched for the ride home. She will be given a course of doxycycline. If redness worsens or she develops fever in spite of antibiotics she is to return for IV medication. Treatment Plan: [] Disposition: Discharge Impression: Cellulitis left breast This note was generated with [employer] dictation software. It may contain incorrect words, spelling, and punctuation that were not noted in review of the chart prior to signing ED Disposition - Plan for ED Patient: Referrals: Dustin Mendieta MD [Primary Care Provider] -
[2018-12-02] MEDS: Doxycycline 100 MG CAPSULE PO (09:09)
[2018-12-02 09:17] LABS: Absolute Neutrophil Count 4.8 X10^3/uL (2.0-7.7); Basophil# 0.07 X10^3/uL; Basophil% 1.1 % (0-1); Eosinophil# 0.12 X10^3/uL; Eosinophils% 1.9 % (0-5); Hematocrit 35.9 % (37-47); Hemoglobin 10.9 g/dl (12.0-15.0); Lymphocyte % 12.6 % (19-41); Mean Corp Hgb Conc 30.4 g/gl (32-36); Mean Corpuscular Hgb 26.7 pg (27.0-32.0); Mean Corpuscular Volume 87.8 fL (81-99); Mean Platelet Vol. 9.3 fl (6.2-12.0); Monocyte# 0.61 X10^3/uL; Monocyte% 9.6 % (0-10); Neutrophil # 4.75 X10^3/uL (2.7-7.7); Neutrophil % 74.6 % (47-70); Platelet Count 340 K/mm3 (150-450); RBC Distribution Width CV 17.4 % (11.6-14.6); Red Blood Count 4.09 M/mm3 (4.2-5.4); White Blood Count 6.4 K/mm3 (4.4-11.0)
[2018-12-02 09:25] LABS: Anion Gap 7 (5-15); BUN 40 mg/dL (7-18); BUN/Creat Ratio 13.8 RATIO (10-20); Calcium,Total 8.6 mg/dL (8.5-10.1); Chloride 110 mmol/L (98-107); Creatinine, Serum 2.89 mg/dL (0.55-1.02); EST Glomerular Filtration Rate 17 mL/min (>60); Est Glom Filt Rate - Afr Amer 20 mL/min (>60); Estimated Creatinine Clearance 14.29 ml/min; Glucose 110 mg/dL (74-106); Potassium 4.6 mmol/L (3.5-5.1); Sodium Level 142 mmol/L (136-145)
[2018-12-02 09:29] LABS: POSITIVE COUNT NO; POSITIVE DIFFERENTIAL NO; POSITIVE MORPHOLOGY NO
--- NOTE | 2018-12-02 10:04 | ED.DEP ---
ED Disposition - Plan for ED Patient: Disposition: Home or Assisted Living Instructions: ED Infec Skin Cellulitis Prescriptions: Doxycycline 100 mg PO BID #20 capsule Referrals: Dustin Mendieta MD [Primary Care Provider] - 1 Week
[2018-12-02 10:27] VITALS: BP 140/74; PULSE 73; RESP 16; RESP 18; TEMP 36.6; O2SAT 98
== END 2018-12-02 10:28 | disposition home or self-care (01) ==
PROVIDERS: Emergency Provider Emergency Medicine; Family Provider Family Medicine; PCP Family Medicine
DX: N61.0 Mastitis without abscess (principal); R09.02 Hypoxemia; I50.9 Heart failure, unspecified; J44.9 Chronic obstructive pulmonary disease, unspecified; N18.9 Chronic kidney disease, unspecified; I27.20 Pulmonary hypertension, unspecified; Z79.82 Long term (current) use of aspirin; Z79.52 Long term (current) use of systemic steroids; Z79.899 Other long term (current) drug therapy; Z86.73 Personal history of transient ischemic attack (TIA), and cerebral infarction without residual deficits; Z87.891 Personal history of nicotine dependence; Z85.528 Personal history of other malignant neoplasm of kidney; Z90.5 Acquired absence of kidney
CPT/HCPCS: 80048; 85025; 99284; A4216